=== PATIENT | female | born 1960 | race Caucasian/White ===

== ENCOUNTER 2023-04-24 06:39 | Outpatient (OUT) | payer MEDICARE, SELFPAY ==
[2023-04-25 10:59] LABS: Lithium (Eskalith(R)), Serum 0.4 mmol/L (0.5-1.2)
== END 2023-04-24 06:40 ==
LOC: LAB 06:40
PROVIDERS: PCP Family Medicine
DX: F31.4 Bipolar disorder, current episode depressed, severe, without psychotic features (principal); F41.9 Anxiety disorder, unspecified; Z79.899 Other long term (current) drug therapy
CPT/HCPCS: 36415; 80178

== ENCOUNTER 2023-09-27 09:42 | Outpatient (OUT) | payer MEDICARE, SELFPAY ==
--- NOTE | 2023-09-27 09:49 | XR_ITS ---
The [address] [address] Patient Name: NAZARIO MEDLEY MRN: [id number] date: 1960 Sex: F Assigned Patient Location: [facility] Current Patient Location: [facility] Accession/Order Number: [id number] Exam Date: 09/27/2023 10:03 Report Date: 09/27/2023 11:09 At the request of: NOLA VALENCIA Procedure: XR lumbar spine 2-3V EXAM: XR lumbar spine 2-3V HISTORY: Lumbar Radicular Pain M54.18 COMPARISON: None. TECHNIQUE: 3 views FINDINGS: Satisfactory alignment. Maintained vertebral body heights. Multilevel endplate degenerative changes, disc disease, anterior spurring of L4-S1. No acute fracture. No significant subluxation. Unremarkable soft tissues. XR/XR lumbar spine 2-3V IMPRESSION: Multilevel degenerative changes and disc disease as above. Electronically authenticated by: LAUREN BURTON Date: 09/27/2023 11:09
== END 2023-09-27 09:43 | disposition home or self-care (01) ==
LOC: RAD 09:44
PROVIDERS: PCP Family Medicine; Visit Provider Family Medicine
DX: M54.16 Radiculopathy, lumbar region (principal); M51.36 Other intervertebral disc degeneration, lumbar region
CPT/HCPCS: 72100

== ENCOUNTER 2023-10-04 15:12 | Outpatient (REF) | payer MEDICARE, SELFPAY ==
[2023-10-04 15:42] LABS: Influenza Virus A Antigen Negative; Influenza Virus B Antigen Negative; Internal Control Within Normal Limits
[2023-10-04 15:43] LABS: SARS-CoV-2 Ag POSITIVE (NEGATIVE)
== END 2023-10-04 15:13 | disposition home or self-care (01) ==
LOC: LAB 15:12
PROVIDERS: PCP Family Medicine; Visit Provider Family Medicine
DX: J21.9 Acute bronchiolitis, unspecified (principal)
CPT/HCPCS: 87804; 87811

== ENCOUNTER 2023-10-29 08:04 | Outpatient (RCR) | payer MEDICARE, SELFPAY | END 2023-11-21 07:00 | disposition home or self-care (01) | LOC: PT 08:04 | PROVIDERS: PCP Family Medicine; Visit Provider Family Medicine | DX: M54.16 Radiculopathy, lumbar region (principal) | CPT/HCPCS: 97010; 97035; 97110; 97140; 97161; G0283 ==

== ENCOUNTER 2023-12-15 09:05 | Outpatient (OUT) | payer MEDICARE, SELFPAY ==
--- OUTSIDE RECORDS SUMMARY | 2023-12-15 09:09 | XMS_ITS | CCD ---
Author Name Unknown Address [address] [facility] [place] [address] Organization [facility] Care Team Providers Care Executive Kitchen Manager Name Role Phone Nola Ramirez Primary Care Physician Unavailab Nolan Ron Attending Physician Unavailable NOLA RAMIREZ Referring Unavailable NOLA RAMIREZ Primary Care Unavailable JESSIE ARNETT V Attending Unavailable JESSIE ARNETT V Admitting Unavailable Nola Ramirez Primary Care Physician Florence Pittman Unavailable Unavailable JAMES, DR VACA Primary Care Unavailable BART YOUNG Attending Unavailable BART YOUNG Admitting Unavailable KOKI, DR CONSUELO Ellsworth Consulting Unavailable JAMES, DR VACA Primary Care Unavailable SAMSA, GAGAN Attending Unavailable SAMSAGAGAN Admitting Unavailable SAMSAGAGAN Consulting Unavailable JAMES, DR VACA Primary Care Unavailable KINJAL, ANTONY Attending Unavailable KINJAL, ANTONY Admitting Unavailable WEST, DR CONSUELO Ellsworth Consulting Unavailable JAMES, DR VACA Primary Care Unavailable KINJAL, ANTONY Attending Unavailable KINJAL, ANTONY Admitting Unavailable KINJAL, ANTONY Consulting Unavailable MISC, DR ARREGUIN Consulting Unavailable JAMES, DR VACA Primary Care Unavailable MISC, DR ARREGUIN Attending Unavailable MISC, DR ARREGUIN Admitting Unavailable NILL, DR SCHULER Consulting Unavailable DR NOLA RAMIREZ Primary Care Unavailable NILL, DR SCHULER Attending Unavailable NILL, DR SCHULER Admitting Unavailable DR NOLA RAMIREZ Primary Care Unavailable KINJAL, ANTONY Attending Unavailable KINJAL, ANTONY Admitting Unavailable NILL, DR SCHULER Consulting Unavailable JAMES, DR VACA Primary Care Unavailable NILL, DR SCHULER Attending Unavailable NILL, DR SCHULER Admitting Unavailable RAVINDRATIABIJAN Consulting Unavailable KUCHIPUDI, MARK Consulting Unavailable DR NOLA RAMIREZ Consulting Unavailable JAMES, DR VACA Primary Care Unavailable JAMES, DR VACA Attending Unavailable JAMES, DR VACA Admitting Unavailable Ziebjong, DR Valenzuela Consulting Unavailable YUDITHY, DR VACA Primary Care Unavailable SAMSA, GAGAN Attending Unavailable SAMSA, GAGAN Admitting Unavailable SAMSA, GAGAN Consulting Unavailable MOUKARBEL, DR ROMAN Consulting Unavailable HOY, DR VACA Primary Care Unavailable MOUKARBEL, DR ROMAN Attending Unavailable MOUKARBEL, DR ROMAN Admitting Unavailable WEST, DR CONSUELO Ellsworth Consulting Unavailable JAMES, DR VACA Primary Care Unavailable SAMSA, GAGAN Attending Unavailable SAMSA, GAGAN Admitting Unavailable SAMSA, GAGAN Consulting Unavailable KINJAL, ANTONY Consulting Unavailable JAMES, DR VACA Primary Care Unavailable KINJAL, ANTONY Attending Unavailable KINJAL, ANTONY Admitting Unavailable HORamses, DR VACA Consulting Unavailable JAMES, DR VACA Primary Care Unavailable HOY, DR VACA Attending Unavailable HOY, DR VACA Admitting Unavailable Zieber, DR Valenzuela Consulting Unavailable HOY, DR VACA Consulting Unavailable HOY, DR VACA Primary Care Unavailable HOY, DR VACA Attending Unavailable HOY, DR VACA Admitting Unavailable NILL, Ganga Salgado Attending Unavailable NILL, Ganga Salgado Attending Unavailable NILL, Ganga Salgado Attending Unavailable MOUKARBEL, JESSIE Attending Unavailable MOUKARBEL, JESSIE Attending Unavailable Dereck Walker Attending Unavailab Dereck Maldonado Admitting Unavailab Nola De La Fuente Primary Care Unavailable Allergies Allergy Classification Reported Allergen(s) Allergy Type Date of Onset Reaction(s) Facility (1 source) [address]75,00 Drug allergy (disorder) 1 [facility] Repository (1 source) oxyCODONE; Translations: [OxyCODONE Hydrochloride] Drug Allergy [facility] Repository (1 source) No Known Medication Allergies; Translations: [No Known Medication Allergies] Propensity to adverse reactions (disorder) [facility] Repository Medications Current Medications Medication Drug Class(es) Dates Sig (Normalized) Sig (Original) aspirin 81 mg delayed release oral tablet (2 sources) Platelet Aggregation Inhibitor, Nonsteroidal Anti-inflammatory Drug Start: 08-26-2022 take 1 tablet by mouth once daily aspirin 81 mg Oral EC Tab 81 mg = 1 tab(s), Oral, Daily, Refills(s) 0 Start Date: 08/26/22 Status: Ordered atorvastatin 40 mg oral tablet (2 sources) HMG-CoA Reductase Inhibitor Start: 08-26-2022 atorvastatin 40 mg Tab Refills(s) 0 Start Date: 08/26/22 Status: Ordered buPROPion (8 sources) Aminoketone Start: 08-26-2022 buPROPion 150 mg ER Tab Refills(s) 0 Start Date: 08/26/22 Status: Ordered Start: 06-13-2019 take 300 mg by mouth once aarti y Bupropion Hcl 300 MG Oral Daily 14 June 13, 2019 Active Start: 06-01-2019 End: 06-13-2019 take 150 mg by mouth once daily Bupropion Hcl [Wellbut rin Xl] 150 MG Oral Daily June 01, 2019 June 13, 2019 Discontinued Start: 02-27-2019 End: 03-07-2019 take 1 tablet by mouth once daily Bupropion Hcl [Wellbutrin Sr] 1 TAB Oral Daily February 27, 2019 March 07, 2019 Discontinued busPIRone hydrochloride 15 mg oral tablet (4 sources) Start: 08-26-2022 take 1 tablet by mouth once daily busPIRone 15 mg Tab 15 mg = 1 tab(s), Oral, Daily, Refills(s) 0 Start Date: 08/26/22 Status: Ordered Start: 08-15-2018 End: 06-01-2019 take 20 mg by mouth three times daily Buspirone 20 MG Oral Three times daily 180 August 15, 2018 Discontinued cariprazine 6 mg oral capsule (8 sources) Atypical Antipsychotic Start: 11-29-2020 take 1 capsule by mouth once daily Vraylar 6 mg oral capsule 6 mg = 1 cap(s), Oral, Daily, Other (see comment) Start Date: 11/29/20 Status: Ordered Start: 06-01-2019 take 4.5 mg by mouth once daily Cariprazine 4.5 MG Oral Daily June 01, 2019 Active Start: 03-07-2019 End: 06-01-2019 Cariprazine 1.5 MG Oral As D irected March 07, 2019 Discontinued Start: 08-01-2018 End: 02-27-2019 take 6 mg by mouth once daily Cariprazine [Vraylar] 6 MG Oral Daily August 01, 2018 February 27, 2019 Discontinued lithium carbonate 300 mg ora l capsule (12 sources) Start: 08-26-2022 lithium 300 mg Cap Refills(s) 0 Start Date: 08/26/22 Status: Ordered Start: 06-13-2019 take 300 mg by mouth once aarti y [place] Carbonate 300 MG Oral Daily June 13, 2019 Active Start: 06-13-2019 take 600 mg by mouth at bedtim e [place] Carbonate 600 MG Oral Bedtime June 13, 2019 Active Start: 06-01-2019 End: 06-13-2019 take 300 mg by mouth at bedtime [place] Carbonate 300 MG Oral Bedtime June 01, 2019 June 13, 2019 Discontinued Start: 08-15-2018 End: 06-01-2019 take 150 mg by mouth at bedtime [place] Carbonate 150 MG Oral Bedtime February 27, 2019 June 01, 2019 Discontinued lurasidone hydrochloride 80 mg oral tablet (12 sources) Atypical Antipsychotic Start: 11-29-2020 take 1 tablet by mouth once daily Latuda 80 mg oral tablet 80 mg = 1 tab(s), Oral, Daily, Other (see comment) Start Date: 11/29/20 Status: Ordered Start: 06-13-2019 take 80 mg by mouth once daily Lurasidone [Latuda] 80 MG Oral Daily with supper June 13, 2019 Active Start: 06-01-2019 End: 06-13-2019 take 60 mg by mouth once daily at dinner Lurasidone 60 MG Oral Daily June 01, 2019 Discontinued with dinner Start: 02-27-2019 End: 06-01-2019 take 1 tablet by mouth once daily Lurasidone 1 TAB Oral Daily February 27, 2019 Discontinued Start: 08-02-2018 End: 08-02-2018 take 40 mg by mouth once daily Lurasidone 40 MG Oral D aily with supper August 02, 2018 Discontinued Start: 08-02-2018 End: 08-02-2018 take 40 mg by mouth once daily Lurasidone [Latuda] 40 MG Oral Daily with supper August 02, 2018 August 02, 2018 Discontinued Start: 02-01-2018 End: 08-01-2018 take 60 mg by mouth once daily Lurasidone 60 MG Oral D aily February 01, 2018 Discontinued metoprolol tartrate 25 mg oral tablet (2 sources) beta-Adrenergic José Start: 09-02-2022 take 1 tablet by mouth once daily Metoprolol tartrate 25 mg Tab 25 mg = 1 tab(s), Oral, Daily, Refills(s) 0 Start Date: 09/02/22 Status: Ordered mirtazapine 15 mg oral tablet (6 sources) Start: 08-26-2022 mirtazapine 15 mg Tab Refills(s) 0 Start Date: 08/26/22 Status: Ordered Start: 08-02-2018 End: 08-02-2018 take 15 mg by mouth at bedtime as needed for sleep Mirtazapine 15 MG Oral Bedtime PRN For Sleep August 02, 2018 August 02, 2018 Discontinued Start: 08-02-2018 End: 08-02-2018 take 15 mg by mouth at bedtime as needed for sleep Mirtazapine 15 MG Oral Bedtime PRN For Sleep August 02, 2018 Discontinued Start: 02-01-2018 End: 08-01-2018 take 15 mg by mouth once daily at bedtime Mirtazapine [Remeron] 15 MG Oral Daily at bedtime February 01, 2018 August 01, 2018 Discontinued OLANZapine 5 mg oral tablet (2 sources) Atypical Antipsychotic Start: 08-26-2022 olanzapine 5 mg oral tablet Refills(s) 0 Start Date: 08/26/22 Status: Ordered pantoprazole 40 mg delayed release oral tablet (1 source) Proton Pump Inhibitor Start: 10-21-2022 take 1 tablet by mouth once daily Pantoprazole [address] Tab 40 mg = 1 tab(s), Oral, Daily, Refills(s) 0 Start Date: 10/21/22 Status: Ordered spironolactone 25 mg oral tablet (2 sources) Aldosterone Antagonist Start: 08-26-2022 take 1 tablet by mouth once daily spironolactone 25 mg Tab 25 mg = 1 tab(s), Oral, Daily, Refills(s) 0 Start Date: 08/26/22 Status: Ordered tiZANidine 4 mg oral tablet (8 sources) Central alpha-2 Adrenergic Agonist Start: 11-18-2020 take 2 tablets by mouth at bedtime Zanaflex 4 mg Tab 8 mg = 2 tab(s), Oral, Bedtime, Refills(s) 0, Other (see comment) Start Date: 11/18/20 Status: Ordered Start: 06-13-2019 take 6 mg by mouth at bedtime Tizanidine 6 MG Oral Bedtime 21 June 13, 2019 Active Start: 06-01-2019 End: 06-13-2019 take 8 mg by mouth at bedtime Tizanidine 8 MG Oral Bed time June 01, 2019 Discontinued Start: 02-01-2018 End: 06-01-2019 take 8 mg by mouth at bedtime Tizanidine 8 MG Oral Bed time February 01, 2018 Discontinued Completed/Discontinued Medications Medication Drug Class(es) Dates Sig (Normalized) Sig (Original) carBAMazepine 200 mg oral tablet (2 sources) Mood Stabilizer Start: 02-01-2018 End: 08-01-2018 take 100 mg by mouth three times daily Carbamazepine 100 MG Oral Three times daily February 01, 2018 Discontinued cholecalciferol 1000 unt oral tablet (2 sources) Vitamin D Start: 06-13-2019 take 3000 [IU] by mouth once daily Cholecalciferol (Vitamin D3) 3000 UNIT Oral Daily 42 June 13, 2019 Active clonazePAM 0.5 mg oral tablet (2 sources) Benzodiazepine Start: 08-01-2018 End: 08-15-2018 take 0.5 mg by mouth four times daily Clonazepam 0.5 MG Oral Four times daily August 01, 2018 August 15, 2018 Discontinued 24 hr desvenlafaxine succinate 50 mg extended release oral tablet (4 sources) Serotonin and Norepinephrine Reuptake Inhibitor Start: 08-15-2018 End: 06-01-2019 take 100 mg by mouth once daily Desvenlafaxine Succinate [Pristiq] 100 MG Oral Daily 60 August 15, 2018 June 01, 2019 Discontinued Start: 02-01-2018 End: 08-02-2018 take 100 mg by mouth once daily Desvenlafaxine Succinate 100 MG Oral Daily February 01, 2018 Discontinued esomeprazole 20 mg delayed release oral capsule (4 sources) Proton Pump Inhibitor Start: 02-27-2019 End: 06-01-2019 take 1 tablet by mouth once daily Esomeprazole Magnesium [Nexium] 1 TAB Oral Daily February 27, 2019 June 01, 2019 Discontinued Start: 02-01-2018 End: 08-15-2018 take 40 mg by mouth twice daily Esomeprazole Magnesium 40 MG Oral Twice daily February 01, 2018 Discontinued fenofibrate 145 mg oral tablet (4 sources) Peroxisome Proliferator Receptor alpha Agonist Start: 02-27-2019 End: 06-01-2019 take 1 tablet by mouth once daily Fenofibrate Nanocrystallized [Tricor] 1 TAB Oral Daily February 27, 2019 June 01, 2019 Discontinued Start: 02-01-2018 End: 08-02-2018 take 145 mg by mouth once daily Fenofibrate Nanocrystallized [Tricor] 145 MG Oral Daily February 01, 2018 August 02, 2018 Discontinued hydrOXYzine pamoate 50 mg oral capsule (8 sources) Antihistamine Start: 06-13-2019 take 50 mg by mouth twice daily at mealtime Hydroxyzine Pamoate 50 MG Oral Twice daily with meals June 13, 2019 Active Start: 06-01-2019 End: 06-13-2019 take 50 mg by mouth twice daily as needed for anxiety Hydroxyzine Hcl 50 MG Oral Twice daily PRN For Anxiety June 01, 2019 Discontinued Start: 08-15-2018 End: 06-01-2019 take 1 tablet by mouth twice daily as needed for pain Hydroxyzine Pamoate 1 TAB Oral Twice daily PRN For Pain February 27, 2019 Discontinued ibuprofen 200 mg oral tablet (2 sources) Nonsteroidal Anti-inflammatory Drug Start: 02-01-2018 End: 08-01-2018 take 800 mg by mouth every six hours as needed for pain Ibuprofen [Motrin Ib] 800 MG Oral Q6H PRN For Pain February 01, 2018 August 01, 2018 Discontinued lubiprostone 0.008 mg oral capsule (6 sources) Chloride Channel Activator Start: 02-27-2019 End: 06-01-2019 Lubiprostone [Amitiza] February 27, 2019 June 01, 2019 Discontinued Start: 02-01-2018 End: 02-27-2019 take 24 ug by mouth twice daily Lubiprostone 24 MCG Oral Twice daily February 01, 2018 February 27, 2019 Discontinued naltrexone 380 mg injection (2 sources) Opioid Antagonist Start: 02-01-2018 End: 03-07-2019 Naltrexone Microspheres 380 MG Daily February 01, 2018 Discontinued Last dose given 07/22/18, next dose due 08/19/18. omeprazole 20 mg delayed release oral capsule (2 sources) Proton Pump Inhibitor Start: 08-15-2018 End: 02-27-2019 take 40 mg by mouth once daily Omeprazole 40 MG Oral Daily 60 August 15, 2018 February 27, 2019 Discontinued ondansetron 4 mg oral tablet (2 sources) Serotonin-3 Receptor Antagonist Start: 02-01-2018 End: 02-27-2019 take 4 mg by mouth every six hours as needed for nausea Ondansetron Hcl 4 MG Oral Q6H PRN For Nausea February 01, 2018 February 27, 2019 Discontinued 24 hr oxybutynin chloride 5 mg extended release oral tablet (6 sources) Cholinergic Muscarinic Antagonist Start: 08-15-2018 End: 02-27-2019 take 5 mg by mouth twice daily Oxybutynin Chloride 5 MG Oral Twice daily 60 August 15, 2018 February 27, 2019 Discontinued Start: 02-01-2018 End: 06-01-2019 take 1 tablet by mouth once daily Oxybutynin Chloride [Ditropan Xl] 1 TAB Oral Daily February 27, 2019 June 01, 2019 Discontinued pramipexole dihydrochloride 0.25 mg oral tablet (6 sources) Nonergot Dopamine Agonist Start: 02-01-2018 End: 06-01-2019 take 1 tablet by mouth at bedtime Pramipexole [Mirapex] 1 TAB Oral Bedtime February 27, 2019 June 01, 2019 Discontinued promethazine hydrochloride 25 mg oral tablet (4 sources) Phenothiazine Start: 06-01-2019 take 25 mg by mouth twice daily as needed for nausea Promethazine 25 MG Oral Twice daily PRN For Nausea June 01, 2019 Active Start: 02-01-2018 End: 08-01-2018 take 25 mg by mouth every four hours as needed for nausea Promethazine 25 MG Oral Q4H PRN For Nausea February 01, 2018 August 01, 2018 Discontinued propranolol hydrochloride 40 mg oral tablet (2 sources) beta-Adrenergic José Start: 02-01-2018 End: 08-01-2018 take 20 mg by mouth once daily Propranolol 20 MG Oral Daily February 01, 2018 Discontinued simvastatin 20 mg oral tablet (4 sources) HMG-CoA Reductase Inhibitor Start: 08-02-2018 End: 02-27-2019 take 20 mg by mouth once daily in the evening Simvastatin 20 MG Oral Every evening 30 August 15, 2018 February 27, 2019 Discontinued traZODone hydrochloride 100 mg oral tablet (6 sources) Serotonin Reuptake Inhibitor Start: 08-15-2018 End: 02-27-2019 take 100 mg by mouth once daily at bedtime Trazodone 100 MG Oral Daily at bedtime 30 August 15, 2018 February 27, 2019 Discontinued Start: 08-02-2018 End: 08-02-2018 take 100 mg by mouth at bedtime Trazodone 100 MG Oral Bedtime August 02, 2018 August 02, 2018 Discontinued Start: 08-02-2018 End: 08-02-2018 take 100 mg by mouth at bedtime Trazodone 100 MG Oral Bedtime August 02, 2018 Discontinued Start: 02-01-2018 End: 08-01-2018 take 100 mg by mouth once daily at bedtime Trazodone 100 MG Oral Daily at bedtime February 01, 2018 Discontinued 24 hr divalproex sodium 500 mg extended release oral tablet (4 sources) Mood Stabilizer, Anti-epileptic Agent Start: 08-02-2018 End: 08-02-2018 take 1000 mg by mouth once daily Divalproex 1000 MG Oral Daily August 02, 2018 August 02, 2018 Discontinued Start: 08-02-2018 End: 08-02-2018 take 1000 mg by mouth once daily Divalproex 1000 MG Oral Daily August 02, 2018 Discontinued Start: 02-01-2018 End: 08-01-2018 take 500 mg by mouth twice daily Divalproex [Depakote] 500 MG Oral Twice daily February 01, 2018 August 01, 2018 Discontinued Problems Active Problems Problem Classification Problem Date Documented Da te Episodic/Chronic Abdominal hernia (6 sources) Hernia of abdominal wall; Translations: [Incisional hernia] 11-18-2020 Episodic Anal and rectal conditions (2 sources) Rectal prolapse 11-18-2020 Episodic Attention-deficit, conduct, and disruptive behavior disorders (2 sources) Attention deficit hyperactivity disorder, predominantly inattentive type 03-27-2010 Chronic Chronic obstructive pulmonary disease and bronchiectasis (1 source) Bronchiectasis, uncomplicated; Translations: [BRONCHIECTASIS UNCOMPLICATED] Onset: 2 Chronic Disorders of lipid metabolism (9 sources) Mixed hyperlipidemia; Translations: [Mixed hyperlipidemia] Onset: 2 08-26-2022 Chronic Esophageal disorders (2 sources) Gastroesophageal reflux disease 02-02-2014 Chronic Esophageal disorders (2 sources) Esophagitis; Translations: [Esophagitis, unspecified without bleeding] Onset: 2 Episodic Essential hypertension (3 sources) Hypertensive disorder; Translations: [Essential (primary) hypertension] Onset: 2 08-26-2022 Chronic Gastritis and duodenitis (1 source) Unspecified chronic gastritis without bleeding; Translations: [UNS CHRONIC GASTRITIS W/O BLEEDING] Onset: 2 Chronic Gastroduodenal ulcer (except hemorrhage) (3 sources) Gastric ulcer, unspecified as acute or chronic, without hemorrhage or perforation; Translations: [Chronic gastric ulcer without hemorrhage AND without perforation] Onset: 2 Chronic Genitourinary symptoms and ill-defined conditions (2 sources) Urinary incontinence 11-18-2020 Chronic Mood disorders (7 sources) Depressed bipolar I disorder; Translations: [Bipolar disorder] Onset: 2 02-02-2014 Chronic Other 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 source) 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; Translations: [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] Onset: 2 Episodic Other gastrointestinal disorders (4 sources) Dysphagia; Translations: [Dysphagia, unspecified] Onset: 2 Episodic Other gastrointestinal disorders (2 sources) Oropharyngeal dysphagia 08-26-2022 Episodic Other gastrointestinal disorders (4 sources) Dysphagia, unspecified; Translations: [DYSPHAGIA UNSPECIFIED] Onset: 2 Episodic Other gastrointestinal disorders (4 sources) Dysphagia, oropharyngeal phase; Translations: [DYSPHAGIA OROPHARYNGEAL PHASE] Onset: 2 Episodic Other hereditary and degenerative nervous system conditions (2 sources) Restless legs 11-18-2020 Chronic Other infections; including parasitic (2 sources) H/O: infectious disease 11-29-2020 Episodic Other lower respiratory disease (6 sources) Shortness of breath; Translations: [SHORTNESS OF BREATH] Onset: 2 Episodic Other nutritional; endocrine; and metabolic disorders (2 sources) Body mass index 30+ - obesity 09-02-2022 Chronic Other nutritional; endocrine; and metabolic disorders (2 sources) Obesity 08-26-2022 Chronic Other nutritional; endocrine; and metabolic disorders (1 source) Obesity, unspecified; Translations: [OBESITY UNSPECIFIED] Onset: 2 Chronic Other nutritional; endocrine; and metabolic disorders (1 source) Body mass index (BMI) 35.0-35.9, adult; Translations: [BODY MASS INDEX BMI 35.0-35.9 ADULT] Onset: 2 Chronic Other screening for suspected conditions (not mental disorders or infectious disease) (1 source) Abnormal findings on diagnostic imaging of other specified body structures; Translations: [ABNORML FIND DX IMG OTH BODY STRUC] Onset: 2 Chronic Other screening for suspected conditions (not mental disorders or infectious disease) (10 sources) Imaging of gastrointestinal tract abnormal; Translations: [Abnormal findings on diagnostic imaging of other parts of digestive tract] Onset: 2 Episodic Other upper respiratory infections (1 source) Acute sinusitis, unspecified; Translations: [ACUTE SINUSITIS UNSPECIFIED] Onset: 2 Episodic Residual codes; unclassified (2 sources) Obstructive sleep apnea syndrome 11-18-2020 Chronic Residual codes; unclassified (1 source) Obstructive sleep apnea (adult) (pediatric); Translations: [OBSTRUCTIVE SLEEP APNEA] Onset: 2 Chronic Residual codes; unclassified (2 sources) Amnesia 11-29-2020 Episodic Residual codes; unclassified (1 source) Acquired absence of both cervix and uterus; Translations: [ACQUIRED ABSENCE BOTH CERVIX AND UTERUS] Onset: 2 Episodic Residual codes; unclassified (1 source) Acquired absence of other specified parts of digestive tract; Translations: [ACQ ABSENCE OTH PART DIGESTV TRACT] Onset: 2 Episodic Schizophrenia and other psychotic disorders (1 source) Acute exacerbation of chronic schizophrenia Chronic Screening and history of mental health and substance abuse codes (1 source) Personal history of nicotine dependence; Translations: [PERSONAL HISTORY OF NICOTINE DEPEND] Onset: 2 Episodic Unclassified (1 source) ESOPHAGITIS UNSPEC WITHOUT BLEEDING; Translations: [ESOPHAGITIS UNSPEC WITHOUT BLEEDING] Onset: 2 Unclassified (4 sources) CONTACT W/AND (SUSP) EXPOS COVID-19; Translations: [CONTACT W/AND (SUSP) EXPOS COVID-19] Onset: 2 Past or Other Problems Problem Classification Problem Date Documented Da te Episodic/Chronic Nausea and vomiting (1 source) Nausea Episodic Other lower respiratory disease (7 sources) Other forms of dyspnea; Translations: [OTHER FORMS OF DYSPNEA] Onset: 06-02-2022 Episodic Residual codes; unclassified (1 source) Localized edema; Translations: [LOCALIZED EDEMA] Onset: 07-13-2022 Episodic Suicide and intentional self-inflicted injury (1 source) Suicidal thoughts Episodic Unclassified (1 source) CONTACT W/AND (SUSP) EXPOS COVID-19; Translations: [CONTACT W/AND (SUSP) EXPOS COVID-19] Onset: 08-11-2022 Results Test Name Value Interpretation Reference Range Facility Office Visiton 04-05-2023 Follow-up visit [id number] Julia Medley 1960 F Date Provider Department Center 04/05/2023 JESSIE RIVERA GAL [facility] Family History Problem Relation Age of Onset Hypertension Mother Hypertension Father Family Status - Relation Status Age at Mother Father Level of Service:[id number] [place] OFFICE/OUTPATIENT ESTABLISHED MOD MDM 30-39 MIN Reason for Visit and Comments: Shortness of Breath [022883] Hyperlipidemia [182] Normal [facility] General Surgery Office/Clini c Noteon 10-21-2022 General Surgery Office/Clinic Note Chief Complaint post operative follow up HPI Staff 14 day post operative follow up post EGD with antral and distal esophagus biopsies. Taking Pantoprazole without change in dysphagia. History of Present Illness s/p EGD for dysphagia, abnormal UGI; EGD with distal esophagitis, no Mackenzie's changes; small antral ulcerations; bx negative for H pylori; no real improvement with daily Protonix. Review of Systems ROS - Provider Constitutional: no fever, no sweats, no weight loss. Eyes: no glasses, no blurred vision, no visual loss. ENMT: no dentures, no hoarseness, no swallowing difficulties, no hearing loss, no ear infection(s), no nose bleeds. Cardiovascular: normal blood pressure, no chest pain, regular heartbeat, no heart murmur. Respiratory: no shortness of breath, no cough, no asthma, no wheezing. Gastrointestinal: no nausea, no vomiting, no diarrhea, no constipation, no blood in stool, no change in bowel habits, no abdominal pain, no hepatitis. Genitourinary: no kidney stones, no urine infection, no dysuria. Musculoskeletal: no pain, no weakness. Skin: no changing moles, no rash, no skin lumps. Neurologic: no seizures, no epilepsy, no headache. Psychiatric: no emotional or psychiatric problem. Heme/Lymph: no bleeding problems, no anemia, no blood clots, no transfusions. Allergy/Immunologic: no swollen lymph nodes/glands, no IV drug abuse. Other: Additional ROS info: Except as noted in the above Review of Systems and in the History of Present Illness, all other systems have been reviewed and are negative or noncontributory. Assessment/Plan 1. Chronic gastric ulcer without hemorrhage or perforation (K25.7: Chronic gastric ulcer without hemorrhage or perforation) continue PPI, if no improvement in 1 week, increase to bid; call with problems/questions. 2. Esophagitis on biopsy (K20.90: Esophagitis, unspecified without bleeding) see # 1 3. Dysphagia (R13.10: Dysphagia, unspecified) see # 1 Follow-up No qualifying data available Problem List/Past Medical History Ongoing Abdominal wall hernia Abnormal barium swallow Antral erosion Bladder incontinence BMI 35.0-35.9,adult Dysphagia Dysphagia, oropharyngeal Esophagitis on biopsy HTN (hypertension) Incisional hernia Incisional hernia without obstruction or gangrene Mixed hyperlipidemia Obesity ERIKA (obstructive sleep apnea) Rectal prolapse RLS (restless legs syndrome) Historical Acid reflux ADD - Attention deficit disorder Bipolar disorder History of Clostridium difficile infection Memory loss Procedure/Surgical History EGD - Esophagogastroduodenoscopy (10/07/2022), Cardiac catheterization (07/28/2022), Hernia repair (12/05/2020), Abdominal hysterectomy (1996), Arthroscopy of shoulder, Cholecystectomy, Ectopic , Exploratory laparotomy, History of partial thyroidectomy, History of tonsillectomy, Partial resection of colon. Medications aspirin 81 mg Oral EC Tab, 81 mg= 1 tab(s), Oral, Daily atorvastatin 40 mg Tab buPROPion 150 mg ER Tab busPIRone 15 mg Tab, 15 mg= 1 tab(s), Oral, Daily Latuda 80 mg oral tablet, 80 mg= 1 tab(s), Oral, Daily lithium 300 mg Cap Metoprolol tartrate 25 mg Tab, 25 mg= 1 tab(s), Oral, Daily mirtazapine 15 mg Tab olanzapine 5 mg oral tablet Pantoprazole [address] Tab, 40 mg= 1 tab(s), Oral, Daily spironolactone 25 mg Tab, 25 mg= 1 tab(s), Oral, Daily Vraylar 6 mg oral capsule, 6 mg= 1 cap(s), Oral, Daily Zanaflex 4 mg Tab, 8 mg= 2 tab(s), Oral, Bedtime Allergies No Known Allergies Social History Alcohol - Denies Alcohol Use, 03/27/2010 Substance Abuse - Denies Substance Abuse, 03/27/2010 Tobacco - Denies Tobacco Use, 03/27/2010 Former smoker, quit more than 30 days ago Tobacco Use:. Never Smokeless Tobacco Use:. Cigarettes, 1 per day. Started age 14.0 Years. Stopped age 58 Years., 09/02/2022 Family History COPD: Brother. Diabetes mellitus type 2: Mother. Hypertension: Mother and Father. Normal [facility] Comment on above: Result Comment: Elec tronically Signed By: CAIT LEHMAN, Ganga Valencia\Date and Time Signed: 10/21/22 15:25 EST Operative Reporton 2 Operative Report [id number]:127 Normal [facility] Operative Reporton 2 Operative Report [id number]:127 Normal [facility] Pathology Noteon 10-09-2022 Pathology Note [id number]:127 Normal [facility] Lab Reportson 10-05-2022 Lab Reports [id number]#1.00CD:127 Normal [facility] Covid-19 PCR ([facility])on 09-22 SARS-CoV-2 (COVID-19) RNA ISABEL+probe Ql (Unsp spec) Not detected Normal NOT DETECTED [facility] Comment on above: Result Comment: This test is not yet approved or cleared by the [place] FDA. When there are no FDA-approved or cleared tests available, and other criteria are met, FDA can make tests available under an emergency access mechanism called an Emergency Use Authorization (EUA). The EUA for this test is supported by the [place] [employer] of Health and Human Service's (HHS's) declaration that circumstances exist to justify the emergency use of in vitro diagnostics for the detection and/or diagnosis of the virus that causes COVID-19. This EUA will remain in effect (meaning this test can be used) for the duration of the COVID-19 declaration justifying emergency of IVDs, unless it is terminated or revoked by FDA (after which the test may no longer be used). When diagnostic testing is negative, the possibility of a false negative should be considered in the context of a patient's recent exposures and the presence of clinical signs and symptoms consistent with SARS-CoV-2. Performed By: #### [facility] #### [facility] [address] [place] [address] Dr. Osmar Cox Consent for Procedure/Surger yon 09-03-2022 Consent for Procedure/Surgery [id number]:127 Aida [facility] Ambulatory Visit Summaryon 1 Ambulatory Visit Summary EBONY MEDLEY :1960 Visit Date:09/02/2022 Ambulatory Visit Instructions Your Care Team Attending Physician - CAIT LEHMAN, Ganga Salgado Primary Care Physician - Nola Ramirez MD This Is Your Medications List Contact prescribing physician if questions or concerns aspirin (aspirin 81 mg Oral EC Tab) atorvastatin (atorvastatin 40 mg Tab) buPROPion (buPROPion 150 mg ER Tab) busPIRone (busPIRone 15 mg Tab) cariprazine (Vraylar 6 mg oral capsule) lithium (lithium 300 mg Cap) lurasidone (Latuda 80 mg oral tablet) metoprolol (Metoprolol tartrate 25 mg Tab) mirtazapine (mirtazapine 15 mg Tab) olanzapine (olanzapine 5 mg oral tablet) spironolactone (spironolactone 25 mg Tab) tizanidine (Zanaflex 4 mg Tab) Procedures Performed Cardiac catheterization (07/28/2022), Hernia repair (12/05/2020), Abdominal hysterectomy (1996), Arthroscopy of shoulder, Cholecystectomy, Ectopic , Exploratory laparotomy, History of partial thyroidectomy, History of tonsillectomy, Partial resection of colon. Discharge Vitals Heart Rate (Peripheral) 72 Respiratory Rate 16 Blood Pressure 120/82 Height 160 cm Height 63 in Weight 90 kg Weight 198 lb BMI 35.16 Medications What How Much When Instructions Unchanged aspirin (aspirin 81 mg Oral EC Tab) 1 Tablets By Mouth Every day Contact prescribing physician if questions or concerns Unchanged atorvastatin (atorvastatin 40 mg Tab) Contact prescribing physician if questions or concerns Unchanged buPROPion (buPROPion 150 mg ER Tab) Contact prescribing physician if questions or concerns Unchanged busPIRone (busPIRone 15 mg Tab) 1 Tablets By Mouth Every day Contact prescribing physician if questions or concerns Unchanged cariprazine (Vraylar 6 mg oral capsule) 1 Capsules By Mouth Every day Contact prescribing physician if questions or concerns Unchanged lithium (lithium 300 mg Cap) Contact prescribing physician if questions or concerns Unchanged lurasidone (Latuda 80 mg oral tablet) 1 Tablets By Mouth Every day Contact prescribing physician if questions or concerns Unchanged metoprolol (Metoprolol tartrate 25 mg Tab) 1 Tablets By Mouth Every day Contact prescribing physician if questions or concerns Unchanged mirtazapine (mirtazapine 15 mg Tab) Contact prescribing physician if questions or concerns Unchanged olanzapine (olanzapine 5 mg oral tablet) Contact prescribing physician if questions or concerns Unchanged spironolactone (spironolactone 25 mg Tab) 1 Tablets By Mouth Every day Contact prescribing physician if questions or concerns Unchanged tizanidine (Zanaflex 4 mg Tab) 2 Tablets By Mouth At bedtime Contact prescribing physician if questions or concerns Allergies No Known Allergies Problems Ongoing - Any problem that you are currently receiving treatment for. Abdominal wall hernia Bladder incontinence BMI 35.0-35.9,adult Dysphagia, oropharyngeal HTN (hypertension) Incisional hernia Incisional hernia without obstruction or gangrene Mixed hyperlipidemia Obesity ERIKA (obstructive sleep apnea) Rectal prolapse RLS (restless legs syndrome) Historical - Any problem that you are no longer receiving treatment for. Acid reflux ADD - Attention deficit disorder Bipolar disorder History of Clostridium difficile infection Memory loss Normal [facility] Follow-Upon 08-28-2022 Follow-Up [id number] Julia Medley 1960 F Date Provider Department Center 08/28/2022 JESSIE RIVERA GAL Brown Family History Problem Relation Age of Onset Hypertension Mother Hypertension Father Family Status - Relation Status Age at Mother Father Level of Service:029[address] [place] OFFICE/OUTPATIENT ESTABLISHED LOW MDM 20-29 MIN Normal [facility] Outside Hospital Correspo ndenceon 08-19-2022 Outside Hospital Correspondence [id number]:127 Normal [facility] RAD - CT Reporton 08-19-2022 RAD - CT Report [id number]:127 Normal [facility] RAD - MISCon 08-19-2022 RAD - MISC [id number]:127 [facility] Physician Referralon 022 Physician Referral [id number]#[id number]:127 Normal [facility] 07-24 SARS-CoV-2 (COVID-19) RNA ISABEL+probe Ql (Unsp spec) Not detected Normal NOT DETECTED [facility] Comment on above: Result Comment: This test is not yet approved or cleared by the [place] FDA. When there are no FDA-approved or cleared tests available, and other criteria are met, FDA can make tests available under an emergency access mechanism called an Emergency Use Authorization (EUA). The EUA for this test is supported by the [employer] of Health and Human Service's (HHS's) declaration that circumstances exist to justify the emergency use of in vitro diagnostics for the detection and/or diagnosis of the virus that causes COVID-19. This EUA will remain in effect (meaning this test can be used) for the duration of the COVID-19 declaration justifying emergency of IVDs, unless it is terminated or revoked by FDA (after which the test may no longer be used). When diagnostic testing is negative, the possibility of a false negative should be considered in the context of a patient's recent exposures and the presence of clinical signs and symptoms consistent with SARS-CoV-2. Performed By: #### [facility] #### [facility] [address] [place] [address] Dr. Osmar Cox XR MODIFIED BARIUM SWALLOWon 08-06-2022 XR MODIFIED BARIUM SWALLOW EXAMINATION: XR MODIFIED BARIUM SWALLOW HISTORY: Oropharyngeal dysphagia COMPARISON: No relevant comparison available. TECHNIQUE: A swallowing evaluation was performed with fluoroscopy in the usual manner. Standard level fluoroscopic mode of operation utilized. FINDINGS: ORAL PHASE: Normal deglutition. PHARYNGEAL PHASE: Normal swallowing. ASPIRATION: None. STRUCTURE: Normal. No visible obstruction, stricture, or dilatation. OTHER: Slow passage of contents through the esophagus with accumulation during the study. IMPRESSION: 1. Normal modified barium swallowing study. 2. Of contents within the esophagus suggesting distal stricture or decreased peristalsis. Fluoroscopic esophagram study should be considered for further evaluation. Electronically authenticated by: NICOLAS KIRK Date: 2022-08-06 15:18 Normal [facility] Cardiovascular Lab Reporton 07-29-2022 Cardiovascular Lab Report [facility] Patient Name: Ebony Medley [facility] MR #: [id number] Physician: Jessie De Oliveira of [facility] Medicine Service Date: 07/28/2022 Division of Birthdate: 1960 Cardiology Room #: [facility] Cardiovascular Services [place] [id number] Cardiovascular Laboratory Report INDICATIONS: The patient is a 62-year-old woman who was evaluated in Cardiology Clinic because of symptoms of shortness of breath on exertion and a stress test that showed diffuse ST depressions by Lexiscan infusion. Her myocardial perfusion was within normal limits. She was referred for cardiac catheterization. PROCEDURES: 1. Right heart catheterization. 2. Access into right internal jugular vein under ultrasound guidance. 3. Bilateral selective coronary angiography from the right radial access. 4. Access into the right radial artery under ultrasound guidance. METHODS: Procedure was explained to the patient with risks and benefits, she signed informed consent. 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 The right neck area was prepped and draped in usual fashion. Micropuncture technique and ultrasound guidance were used for access in the right internal jugular vein. A 6-Jamaican x 11 cm sheath was placed. A 6-Jamaican Suarez catheter was used for right heart catheterization and measurement of pressures and calculation of cardiac output using the estimated Karina method. Suarez catheter was removed. Micropuncture technique and ultrasound guidance were used for access in the right radial artery. A 5-Jamaican x 11 cm slender sheath was advanced. Verapamil was given through the sheath and heparin was administered intravenously. Bilateral selective coronary angiography was then performed using 5-Jamaican JL 3.5 and JR5 diagnostic catheters. Catheters were removed. Procedure was concluded. A TR band was used for hemostasis in the right radial artery. Manual compression was used for hemostasis in the right internal jugular vein. She tolerated the procedure well. She will be observed for 2-3 hours and then discharged to home. TOTAL SEDATION TIME: 21 minutes. TOTAL FLUORO TIME: 3.15 minutes. TOTAL AIR KERMA: 225 mGy. TOTAL CONTRAST VOLUME: 20 mL. HEMODYNAMICS: 1. RA 3, RV 34/0, 6. 2. PA, 35/16, mean 23. 3. Pulmonary capillary wedge pressure 6. 4. AO 134/73, mean 98. 5. Cardiac output 6.14, cardiac index 3.26. 6. PA sat 69%. 7. AO sat 93%. CORONARY ANGIOGRAPHY: 1. This is a right dominant circulation. 2. Left main: This arises from left coronary cusp. It trifurcates into left anterior descending, ramus, and circumflex vessels. The left main is angiographically normal. 3. Left anterior descending: This is angiographically normal. 4. Ramus vessel: This is angiographically normal. 5. Circumflex vessel: This is nondominant. It is angiographically normal. 6. Right coronary artery: This arises from the right coronary cusp, it is a large and dominant vessel. It is angiographically normal. SUMMARY OF THE FINDINGS: 1. Normal coronary angiogram. 2. Normal filling pressures. 3. Mild pulmonary hypertension. 4. Preserved cardiac output and cardiac index. RECOMMENDATIONS: 1. Medical therapy and risk factor control. 2. Follow up in Cardiology Clinic. Electronically Signed by: Jessie Arnett M.D. 07/31/2022 06:38 A Jessie Arnett M.D. Date Dict: 07/28/2022/11:21 A/Jessie Arnett M.D. Date Trans: 07/29/2022 03:31 A/gladys [id number] cc: Nola Ramirez M.D. [address] [facility] [id number] Normal [facility] Telephoneon 07-28-2022 Telephone [id number] Julia Medley 1960 F Date Provider Department Center 07/28/2022 [facility] Family History Problem Relation Age of Onset Hypertension Mother Hypertension Father Family Status - Relation Status Age at Mother Father Normal [facility] CBC AUTO DIFFon 07-24-2022 BASO # 0.1 103/ul Normal 0.0-0.1 [facility] Comment on above: Performed By: #### C BC #### [facility] [address] [place] [address] Dr. Osmar Cox Basophils/100 WBC (Bld) 0.9 % Normal 0.2-2.0 [facility] Comment on above: Performed By: #### C BC #### [facility] [address] [place] [address] Dr. Osmar Cox EO # 0.0 103/ul Normal 0.0-0.7 [facility] Comment on above: Performed By: #### C BC #### [facility] [address] [place] [address] Dr. Osmar Cox Eosinophils/100 WBC (Bld) 0.1 % Critically low 0.9-7.0 [facility] Comment on above: Performed By: #### C BC #### [facility] [address] [place] [address] Dr. Osmar Cox Erythrocyte distribution width (RBC) [Ratio] 15.4 % Critically high 11.0-15.0 [facility] Comment on above: Performed By: #### C BC #### [facility] [address] [place] [address] Dr. Osmar Cox Hematocrit (Bld) [Volume fraction] 40.7 % Normal 36.0-48.0 [facility] Comment on above: Performed By: #### C BC #### [facility] [address] [place] [address] Dr. Osmar Cox Hemoglobin (Bld) [Mass/Vol] 12.5 g/dL Normal 12.0-16.0 [facility] Comment on above: Performed By: #### C BC #### [facility] [address] [place] [address] Dr. Osmar Cox IG # 0.08 10e3/ul Critically high 0.00-0.03 [facility] Comment on above: Performed By: #### C BC #### [facility] [address] [place] [address] Dr. Osmar Cox IG % 0.7 % Critically high 0.0-0.5 [facility] Comment on above: Performed By: #### C BC #### [facility] [address] [place] [address] Dr. Osmar Cox LYMPH # 2.6 103/ul Normal 1.2-3.8 [facility] Comment on above: Performed By: #### C BC #### [facility] [address] [place] [address] Dr. Osmar Cox Lymphocytes/100 WBC (Bld) 22.8 % Normal 20.5-60.0 [facility] Comment on above: Performed By: #### C BC #### [facility] [address] [place] [address] Dr. Osmar Cox MANUAL DIFF REQ NO Normal [facility] Comment on above: Performed By: #### C BC #### [facility] [address] [place] [address] Dr. Osmar Cox MCH (RBC) [Entitic mass] 24.4 pg Critically low 26.7-34.0 [facility] Comment on above: Performed By: #### C BC #### [facility] [address] [place] [address] Dr. Osmar Cox MCHC (RBC) [Mass/Vol] 30.7 g/dL Normal 29.9-35.2 [facility] Comment on above: Performed By: #### C BC #### [facility] [address] [place] [address] Dr. Osmar Cox MCV (RBC) [Entitic vol] 79.3 fL Critically low 81.0-99.0 [facility] Comment on above: Performed By: #### C BC #### [facility] [address] [place] [address] Dr. Osmar Cox MONO # 1.0 103/ul Critically high 0.3-0.8 [facility] Comment on above: Performed By: #### C BC #### [facility] [address] [place] [address] Dr. Osmar Cox Monocytes/100 WBC (Bld) 8.9 % Normal 1.7-12.0 [facility] Comment on above: Performed By: #### C BC #### [facility] [address] [place] [address] Dr. Osmar Cox NEUT # 7.6 103/ul Critically high 1.4-6.5 [facility] Comment on above: Performed By: #### C BC #### [facility] [address] [place] [address] Dr. Osmar Cox Neutrophils/100 WBC (Bld) 66.6 % Normal 43.0-75.0 [facility] Comment on above: Performed By: #### C BC #### [facility] [address] [place] [address] Dr. Osmar Cox Platelet mean volume (Bld) [Entitic vol] 8.8 fL Critically low 9.5-13.5 [facility] Comment on above: Performed By: #### C BC #### [facility] [address] [place] [address] Dr. Osmar Cox PLT 438 103/ul Normal 150-450 [facility] Comment on above: Performed By: #### C BC #### [facility] [address] [place] [address] Dr. Osmar Cox RBC 5.13 106/ul Normal 4.20-5.40 [facility] Comment on above: Performed By: #### C BC #### [facility] [address] [place] [address] Dr. Osmar Cox WBC 11.3 103/ul Critically high 4.0-11.0 [facility] Comment on above: Performed By: #### C BC #### [facility] [address] [place] [address] Dr. Osmar Cox Covid-19 PCR ([facility])on SARS-CoV-2 (COVID-19) RNA ISABEL+probe Ql (Unsp spec) Not detected Normal NOT DETECTED [facility] Comment on above: Result Comment: This test is not yet approved or cleared by the [place] FDA. When there are no FDA-approved or cleared tests available, and other criteria are met, FDA can make tests available under an emergency access mechanism called an Emergency Use Authorization (EUA). The EUA for this test is supported by the [place] of Health and Human Service's (HHS's) declaration that circumstances exist to justify the emergency use of in vitro diagnostics for the detection and/or diagnosis of the virus that causes COVID-19. This EUA will remain in effect (meaning this test can be used) for the duration of the COVID-19 declaration justifying emergency of IVDs, unless it is terminated or revoked by FDA (after which the test may no longer be used). When diagnostic testing is negative, the possibility of a false negative should be considered in the context of a patient's recent exposures and the presence of clinical signs and symptoms consistent with SARS-CoV-2. Performed By: #### [facility] #### [facility] [address] [place] [address] CHEST HI RESOLUTIONon CT CHEST HI RESOLUTION EXAMINATION: CT CHEST HI RESOLUTION HISTORY: Dyspnea COMPARISON: No relevant comparison available. TECHNIQUE: Axial images were obtained at 10 mm intervals during inspiration and expiration in the supine and prone positions. No IV contrast given. Dose reduction techniques were achieved by using automated exposure control and/or adjustment of mA and/or kV according to patient size and/or use of iterative reconstruction technique. FINDINGS: LUNGS: Mild bronchiectasis and peribronchial thickening. Minimal patchy opacities abnormality within the right middle lobe and lingula on supine imaging, atelectasis and/or scar is favored. No peripheral subpleural honeycombing with intralobular septal thickening. PLEURA: No mass, effusion, or pneumothorax. GAUDENCIO: No mass or adenopathy. MEDIASTINUM: No mass or adenopathy. CHEST WALL: No mass or axillary adenopathy LIMITED ABDOMEN: No suspicious findings. Limited images of the upper abdomen. OTHER: Negative. IMPRESSION: No evidence of significant interstitial lung disease Mild bronchiectasis and peribronchial thickening Electronically authenticated by: CONSUELO TELLES Date: 2022-07-20 11:51 Normal [facility] BNPon 07-10-2022 Natriuretic peptide B (Bld) [Mass/Vol] 85.0 pg/mL Normal <=900.0 [facility] Comment on above: Performed By: #### B TRANSITION MANAGER, BMP, LIVER, LIPID ####[facility] [id number] [place] [id number]. Osmar Cox LIPID PROFILEon 07-10-2022 CHOL-HDL RATIO NORM SEE BELOW Normal [facility] Comment on above: Result Comment: 3.3 - 4.4 LOW RISK 4.4 - 7.1 AVERAGE RISK 7.1 - 11.0 MODERATE RISK >11.0 HIGH RISK Performed By: #### B TRANSITION MANAGER, BMP, LIVER, LIPID ####[facility] [id number] [place] [id number]. Osmar Cox Cholesterol [Mass/Vol] 229 mg/dL Critically high <=200 [facility] Comment on above: Performed By: #### B TRANSITION MANAGER, BMP, LIVER, LIPID ####[facility] [id number] [place] [id number]. Osmar Cox Cholesterol in HDL [Mass/Vol] 51 mg/dL Normal 40-60 [facility] Comment on above: Performed By: #### B TRANSITION MANAGER, BMP, LIVER, LIPID ####[facility] [id number] [place] [address]Dr. Osmar Cox Cholesterol in LDL [Mass/Vol] 130.2 mg/dL Normal [facility] Comment on above: Performed By: #### B TRANSITION MANAGER, BMP, LIVER, LIPID ####[facility] [id number] [place] [id number]. Osmar Cox Cholesterol.total/ Cholesterol in HDL [Mass ratio] 4.5 {ratio} Normal [facility] Comment on above: Performed By: #### B TRANSITION MANAGER, BMP, LIVER, LIPID ####[facility] [id number] [place] [id number]. Osmar Cox HDL NORMAL > or = 60 mg/dl - LO W CARDIOVASCULAR RISK <40 mg/dl - HIGH CARDIOVASCULAR RISK Normal [facility] Comment on above: Performed By: #### B TRANSITION MANAGER, BMP, LIVER, LIPID ####[facility] [facility] [address] [place] [id number]. Osmar Cox LDL CALC NORMAL SEE BELOW Normal [facility] Comment on above: Result Comment: <100 mg/dl OPTIMAL 100 - 129 mg/dl NEAR OR ABOVE OPTIMAL 130 - 159 mg/dl BORDERLINE HIGH 160 - 189 mg/dl HIGH >190 mg/dl VERY HIGH Performed By: #### B TRANSITION MANAGER, BMP, LIVER, LIPID ####[facility] [address] [place] [address]Dr. Osmar Cox Triglyceride [Mass/Vol] 239 mg/dL Critically high <=150 [facility] Comment on above: Performed By: #### B TRANSITION MANAGER, BMP, LIVER, LIPID ####[facility] [address] [place] [address]Dr. Osmar Cox VLDL CALC 47.8 mg/dL Normal [facility] Comment on above: Performed By: #### B TRANSITION MANAGER, BMP, LIVER, LIPID ####[facility] [address] [place] [address]Dr. Lindakenyon Kenny LIVER PROFILEon 07-10-2022 Albumin [Mass/Vol] 3.5 g/dL Normal 3.4-5.0 [facility] Comment on above: Performed By: #### B TRANSITION MANAGER, BMP, LIVER, LIPID ####[facility] [address] [place] [address]Dr. Osmar Cox Albumin/Globulin [Mass ratio] 1.0 {ratio} Normal [facility] Comment on above: Performed By: #### B TRANSITION MANAGER, BMP, LIVER, LIPID ####[facility] [address] [place] [address]Dr. Osmar Cox ALP [Catalytic activity/Vol] 183 U/L Critically high 46-116 [facility] Comment on above: Performed By: #### B TRANSITION MANAGER, BMP, LIVER, LIPID ####[facility] [address] [place] [address]Dr. Osmar Cox ALT [Catalytic activity/Vol] 32 U/L Normal 14-59 [facility] Comment on above: Performed By: #### B TRANSITION MANAGER, BMP, LIVER, LIPID ####[facility] [address] [place] [address]Dr. Osmar Cox AST [Catalytic activity/Vol] 17 U/L Normal 15-37 [facility] Comment on above: Performed By: #### B TRANSITION MANAGER, BMP, LIVER, LIPID ####[facility] [address] [place] [address]Dr. Osmar Cox BILI, CONJUGATED 0.1 mg/dL Normal 0.0-0.2 [facility] Comment on above: Performed By: #### B TRANSITION MANAGER, BMP, LIVER, LIPID ####[facility] [address] [place] [address]DrKate Cox Bilirubin [Mass/Vol] 0.2 mg/dL Normal 0.2-1.0 [facility] Comment on above: Performed By: #### B TRANSITION MANAGER, BMP, LIVER, LIPID ####[facility] [address] [place] [address]DrKate Cox Globulin (S) [Mass/Vol] 3.5 g/dL Normal [facility] Comment on above: Performed By: #### B TRANSITION MANAGER, BMP, LIVER, LIPID ####[facility] [address] [place] [address]Dr. Osmar Cox Protein [Mass/Vol] 7.0 g/dL Normal 6.4-8.2 [facility] [place] Comment on above: Performed By: #### B TRANSITION MANAGER, BMP, LIVER, LIPID ####[facility] [address] [place] [address]Dr. Osmar Cox PROF CHEM 8 (BAS METB)on Anion gap [Moles/Vol] 11.6 mmol/L Normal [facility] Comment on above: Performed By: #### B TRANSITION MANAGER, BMP, LIVER, LIPID #### [facility] [address] [address] [address] Osmar Cox Calcium [Mass/Vol] 8.9 mg/dL Normal 8.5-10.1 [facility] [place] Comment on above: Performed By: #### B TRANSITION MANAGER, BMP, LIVER, LIPID #### [facility] [address] [address] [address] Osmar Cox Chloride [Moles/Vol] 104 mmol/L Normal 98-107 [facility] Comment on above: Performed By: #### B TRANSITION MANAGER, BMP, LIVER, LIPID #### [facility] [address] [address] [address] Osmar Cox CO2 [Moles/Vol] 26.0 mmol/L Normal 21.0-32.0 [facility] Comment on above: Performed By: #### B TRANSITION MANAGER, BMP, LIVER, LIPID #### [facility] [address] [address] [address] Osmar Cox Creatinine [Mass/Vol] 0.80 mg/dL Normal 0.55-1.02 [facility] Comment on above: Performed By: #### B TRANSITION MANAGER, BMP, LIVER, LIPID #### [facility] [address] [address] [address] Osmar Cox EGFR-AF BULGARIAN >60 Normal >=60 [facility] Comment on above: Performed By: #### B TRANSITION MANAGER, BMP, LIVER, LIPID #### [facility] [address] [address] [address] Osmar Cox EGFR-NON AF BULGARIAN >60 Normal >=60 [facility] Comment on above: Performed By: #### B TRANSITION MANAGER, BMP, LIVER, LIPID #### [facility] [address] [address] [address] Osmar Cox Glucose [Mass/Vol] 100 mg/dL Normal 74-106 [facility] Comment on above: Performed By: #### B TRANSITION MANAGER, BMP, LIVER, LIPID #### [facility] [address] [address] [address] Osmar Cox Potassium [Moles/Vol] 4.6 mmol/L Normal 3.5-5.1 [facility] Comment on above: Performed By: #### B TRANSITION MANAGER, BMP, LIVER, LIPID #### [facility] [address] [address] [address] Osmar Cox Sodium [Moles/Vol] 137 mmol/L Normal 136-145 [facility] [place] Comment on above: Performed By: #### B TRANSITION MANAGER, BMP, LIVER, LIPID #### [facility] [address] [address] [address] Osmar Cox Urea nitrogen [Mass/Vol] 20.0 mg/dL Critically high 7.0-18.0 [facility] Comment on above: Performed By: #### B TRANSITION MANAGER, BMP, LIVER, LIPID #### [facility] [address] [address] [address] Osmar Cox Urea nitrogen/Creatinin e [Mass ratio] 25.0 mg/mg Normal [facility] Comment on above: Performed By: #### B TRANSITION MANAGER, BMP, LIVER, LIPID #### [facility] [address] [address] [address] Osmar Cox XR CHEST 2 Von 06-04-2022 XR CHEST 2 V EXAMINATION: XR CHES T 2 V HISTORY: Dyspnea COMPARISON: 06/02/2022 TECHNIQUE: PA and lateral FINDINGS: LUNGS: Stable ill-defined bilateral heart border suggests atelectasis. No new focal infiltrates VASCULATURE: No increased pulmonary vasculature. PLEURA: No pneumothorax, effusion, or pleural thickening. CARDIAC: No cardiomegaly or cardiac silhouette abnormality. MEDIASTINUM: No visible mass or adenopathy. BONES: No fracture or visible bone lesion. OTHER: Negative. IMPRESSION: Stable exam, no focal infiltrates Electronically authenticated by: CONSUELO TELLES Date: 2022-06-04 19:26 Normal [facility] HEMOGLOBINon 06-02-2022 Hemoglobin (Bld) [Mass/Vol] 12.1 g/dL Normal 12.0-16.0 [facility] Comment on above: Performed By: #### H GB #### [facility] [address] [place] [address] Dr. Osmar Cox XR CHEST 2 Von 06-02-2022 XR CHEST 2 V EXAMINATION: XR CHES T 2 V HISTORY: Dyspnea COMPARISON: 10/09/2020 TECHNIQUE: PA and lateral FINDINGS: LUNGS: Mild right middle lobe and lingular opacities. VASCULATURE: No increased pulmonary vasculature. PLEURA: No pneumothorax, effusion, or pleural thickening. CARDIAC: No cardiomegaly or cardiac silhouette abnormality. MEDIASTINUM: No visible mass or adenopathy. BONES: No fracture or visible bone lesion. OTHER: Negative. IMPRESSION: Mild bibasilar atelectasis Electronically authenticated by: CONSUELO TELLES Date: 2022-06-02 19:19 Normal [facility] NM STRESS/REST MULTIon 05-06 NM STRESS/REST MULTI Patient: EBONY MEDLEY Exam Date: 05/06/2022 : 1960 Gender:F Ordering : DR NOLA RAMIREZ . Admission #: [id number] Family : Order #: [id number] CLICK HERE TO VIEW EXAM RADIOLOGY REPORT PROCEDURE: RADIONUCLIDE IMAGING STRESS/REST MULTI COMPARISON: None. INDICATIONS: Dyspnea TECHNIQUE: Exam Description: Stress/Rest one day protocol gated SPECT Rest Imagin.9 mCi Tc-99m Cardiolite IV on 05/06/2022 Stress Imaging 30.0 mCi Tc-99m Cardiolite IV on 05/06/2022 Exercise Protocol: 0.4 mg Lexiscan given IV Heart Rate (bpm): Rest: 79 Max: 133 PMHR: 85 Blood Pressure: Rest: 146/102 Max: 184/102 Exercise Time: Minutes: 5 Seconds: 29 Stage Reached: Stage: 2 Mets 5.10 Symptoms: shortness of breath Rest and peak stress ECG findings were abnormal and the exercise portion of the study was abnormal per attending physician Dr. Loyd due to EKG changes. For more details please see separate cardiac stress test report. FINDINGS: QUALITY OF STUDY: Excellent. PERFUSION DEFECT: None. LOCATION: N/A SIZE: N/A. SEVERITY: N/A. TYPE: N/A. WALL MOTION: Normal. LV SIZE: Normal. 54 mL. TID / TCD: None; 0.8 LVEF: Normal. Calculated EF 79%. SUMMARY: Myocardial perfusion imaging study is NORMAL. CONCLUSION: 1. Normal nuclear medicine myocardial perfusion scan. Dictated by: Nicolas Kirk M.D. on 05/07/2022 at 11:02 Approved by: Nicolas Kirk M.D. on 05/07/2022 at 11:04 Normal [facility] ECHOCARDIO M/2D COMPLETEon 0 04-29-2022 ECHOCARDIO M/2D COMPLETE Patient: EBONY MEDLEY. Exam Date: 04/29/2022 : 1960 Gender:F Ordering : DR NOLA RAMIREZ . Admission #: [id number] Family : Order #: [id number] CLICK HERE TO VIEW EXAM ECHOCARDIOGRAM REPORT PROCEDURE: CARDIO PULMONARY ECHOCARDIO M/2D COMP INDICATIONS: Dyspnea COMPARISON: None. DESCRIPTION: COMPLETE ECHOCARDIOGRAM Real-time transthoracic echocardiography with 2D, M-mode, spectral and color flow Doppler performed. QUALITY: Technical quality was limited because of lung artifact. 63 169# 142/96 HR 92 Suggest imaging agent to enhance LV visualization if clinically indicated. LEFT VENTRICLE: Normal chamber size. Proximal septal hypertrophy (sigmoid septum). Global left ventricular systolic function is hyperdynamic. LV EF: Left ventricular ejection fraction is 70%. DIASTOLIC: Normal diastolic function. ATRIAL SEPTUM: LEFT ATRIUM: Normal chamber size. RIGHT ATRIUM: Normal chamber size. RIGHT VENTRICLE: Normal chamber size. Normal right ventricular systolic function. TRICUSPID VALVE: Normal mobility and thickness. No stenosis with trivial regurgitation. No evidence of pulmonary hypertension. RVSP 32 mmHg MITRAL VALVE: Normal mobility and thickness. No evidence of mitral valve stenosis. Trivial mitral regurgitation. AORTIC VALVE: Normal trileaflet appearance. No evidence of aortic valve stenosis. No aortic regurgitation. AORTIC ROOT: Normal diameter and appearance. Normal ascending aorta. PULMONIC VALVE: Normal thickness and mobility. No stenosis. Trivial regurgitation. PERICARDIUM: No pericardial effusion. IVC: Collapses with inspirations. IVC is normal in size. PLEURA: CONCLUSION: 1. Left ventricular systolic function is hyperdynamic. LVEF is 70%. 2. Normal right ventricular systolic function. 3. Normal diastolic function. 4. No significant valvular dysfunction. 5. Normal right-sided pressures. 6. No pericardial effusion. Adult Echocardiography Procedure Report Left Ventricle Left Atrium Mitral Valve Right Ventricle Aorta Aortic Valve Peak Velocity (Antegrade Flow): 1.48 m/s AoV Area (Peak Amandeep): 3.02 cm2, 3.02 cm2 Peak Velocity(Antegrade Flow): 1.48 m/s Peak Gradient(Antegrade Flow): 8.79 mm[Hg] Tricuspid Valve Peak Velocity (Regurgitant Flow): 2.68 m/s Peak Velocity: 0.59 m/s Pulmonic Valve PV Max Amandeep (0.6 - 0.9 m per sec): 1.01 m/s PV Max Gradient: 4.10 mm[Hg] Right Atrium Dictated by: Jessie Arnett M.D. on 04/30/2022 at 20:06 Approved by: Jessie Arnett M.D. on 04/30/2022 at 20:[address] [facility] 03-20-2022 [place] (Eskalith(R)), Serum 0.6 mmol/L Normal 0.5-1.2 [facility] Comment on above: Result Comment: Plas ma concentration of 0.5 - 0.8 mmol/L are advised for long-term use; concentrations of up to 1.2 mmol/L may be necessary during acute treatment. Detection Limit = 0.1 <0.1 indicates None Detected Performed By: #### L ITHIUM ####[facility] [address] [place] [id number]. Lindakenyon Cox LIPID PROFILEon 03-19-2022 CHOL-HDL RATIO NORM SEE BELOW Normal [facility] Comment on above: Result Comment: 3.3 - 4.4 LOW RISK 4.4 - 7.1 AVERAGE RISK 7.1 - 11.0 MODERATE RISK >11.0 HIGH RISK Performed By: #### T SH, T4, LIPID, CMP ####[facility] [address] [place] [address]Dr. Osmar Cox Cholesterol [Mass/Vol] 269 mg/dL Critically high <=200 [facility] Comment on above: Performed By: #### T SH, T4, LIPID, CMP ####[facility] [address] [place] [phone]. Osmar Cox Cholesterol in HDL [Mass/Vol] 48 mg/dL Normal 40-60 [facility] Comment on above: Performed By: #### T SH, T4, LIPID, CMP ####[facility] [address] [place] [phone]. Osmar Cox Cholesterol in LDL [Mass/Vol] 145.8 mg/dL Normal [facility] Comment on above: Performed By: #### T SH, T4, LIPID, CMP ####[facility] [address] [place] [phone]. Osmar Cox Cholesterol.total/ Cholesterol in HDL [Mass ratio] 5.6 {ratio} Normal [facility] Comment on above: Performed By: #### T SH, T4, LIPID, CMP ####[facility] [address] [place] [phone]. Osmar Cox HDL NORMAL > or = 60 mg/dl - LO W CARDIOVASCULAR RISK <40 mg/dl - HIGH CARDIOVASCULAR RISK Normal [facility] Comment on above: Performed By: #### T SH, T4, LIPID, CMP ####[facility] [address] [place] [address]Dr. Osmar Cox LDL CALC NORMAL SEE BELOW Normal [facility] Comment on above: Result Comment: <100 mg/dl OPTIMAL 100 - 129 mg/dl NEAR OR ABOVE OPTIMAL 130 - 159 mg/dl BORDERLINE HIGH 160 - 189 mg/dl HIGH >190 mg/dl VERY HIGH Performed By: #### T SH, T4, LIPID, CMP ####[facility] [address] [place] [id number]. Osmar Cox Triglyceride [Mass/Vol] 376 mg/dL Critically high <=150 [facility] Comment on above: Performed By: #### T SH, T4, LIPID, CMP ####[facility] [address] [place] [address]Dr. Osmar Cox VLDL CALC 75.2 mg/dL Normal [facility] Comment on above: Performed By: #### T SH, T4, LIPID, CMP ####[facility] [address] [place] [address]DrKate Cox PROF 14(COMP METB)on 022 Albumin [Mass/Vol] 3.4 g/dL Normal 3.4-5.0 [facility] Comment on above: Performed By: #### T SH, T4, LIPID, CMP ####[facility] [address] [place] [phone] Cox Albumin/Globulin [Mass ratio] 1.0 {ratio} Normal [facility] Comment on above: Performed By: #### T SH, T4, LIPID, CMP ####[facility] [address] [place] [address]Dr. Osmar Cox ALP [Catalytic activity/Vol] 118 U/L Critically high 46-116 [facility] Comment on above: Performed By: #### T SH, T4, LIPID, CMP ####[facility] [address] [place] [address]Dr. Osmar Cox ALT [Catalytic activity/Vol] 17 U/L Normal 14-59 [facility] Comment on above: Performed By: #### T SH, T4, LIPID, CMP ####[facility] [address] [place] [address]Dr. Osmar Cox Anion gap [Moles/Vol] 11.3 mmol/L Normal [facility] Comment on above: Performed By: #### T SH, T4, LIPID, CMP ####[facility] [address] [place] [address]Dr. Osmar Cox AST [Catalytic activity/Vol] 11 U/L Critically low 15-37 [facility] Comment on above: Performed By: #### T SH, T4, LIPID, CMP ####[facility] [address] [place], [place] [address]Dr. Osmar Cox Bilirubin [Mass/Vol] 0.2 mg/dL Normal 0.2-1.0 [facility] Comment on above: Performed By: #### T SH, T4, LIPID, CMP ####[facility] [address] [place], [place] [address]Dr. Osmar Cox Calcium [Mass/Vol] 8.7 mg/dL Normal 8.5-10.1 [facility] Comment on above: Performed By: #### T SH, T4, LIPID, CMP ####[facility] [address] [place] [address]Dr. Osmar Cox Chloride [Moles/Vol] 106 mmol/L Normal 98-107 [facility] Comment on above: Performed By: #### T SH, T4, LIPID, CMP ####[facility] [address] [place], [place] [address]Dr. Osmar Cox CO2 [Moles/Vol] 23.6 mmol/L Normal 21.0-32.0 [facility] Comment on above: Performed By: #### T SH, T4, LIPID, CMP ####[facility] [address] [place] [address]Dr. Osmar Cox Creatinine [Mass/Vol] 0.86 mg/dL Normal 0.55-1.02 [facility] Comment on above: Performed By: #### T SH, T4, LIPID, CMP ####[facility] [address] [place] [address]Dr. Osmar Cox EGFR-AF BULGARIAN >=60 Normal >=60 [facility] Comment on above: Performed By: #### T SH, T4, LIPID, CMP ####[facility] [address] [place] [address]Dr. Osmar Cox EGFR-NON AF BULGARIAN >=60 Normal >=60 [facility] Comment on above: Performed By: #### T SH, T4, LIPID, CMP ####[facility] [address]ktolp[address] [place] [address]Dr. Osmar Cox Globulin (S) [Mass/Vol] 3.3 g/dL Normal [facility] Comment on above: Performed By: #### T SH, T4, LIPID, CMP ####[facility] [address] [place], [place] [address]Dr. Osmar Cox Glucose [Mass/Vol] 104 mg/dL Normal 74-106 [facility] [place] Comment on above: Performed By: #### T SH, T4, LIPID, CMP ####[facility] [address] [place], [place] [address]Dr. Osmar Cox Potassium [Moles/Vol] 4.9 mmol/L Normal 3.5-5.1 [facility] Comment on above: Performed By: #### T SH, T4, LIPID, CMP ####[facility] [address] [place], [place] [address]Dr. Osmar Cox Protein [Mass/Vol] 6.7 g/dL Normal 6.1-8.2 [facility] [place] Comment on above: Performed By: #### T SH, T4, LIPID, CMP ####[facility] [address] [place], [place] [address]Dr. Osmar Cox Sodium [Moles/Vol] 136 mmol/L Normal 136-145 [facility] Comment on above: Performed By: #### T SH, T4, LIPID, CMP ####[facility] [address] [place], [place] [address]Dr. Osmar Cox Urea nitrogen [Mass/Vol] 25.0 mg/dL Critically high 7.0-18.0 [facility] Comment on above: Performed By: #### T SH, T4, LIPID, CMP ####[facility] [address] [place] [phone]. Osmar Cox Urea nitrogen/Creatinin e [Mass ratio] 29.1 mg/mg Normal [facility] Comment on above: Performed By: #### T SH, T4, LIPID, CMP ####[facility] [address] [place] [phone]. Osmar Cox T4on 03-19-2022 T4 [Mass/Vol] 7.60 ug/dL Normal 4.80-13.90 [facility] Comment on above: Performed By: #### T SH, T4, LIPID, CMP ####[facility] [address] [place] [phone]. Osmar Cox TSHon 03-19-2022 TSH 1.427 uIU/mL Normal 0.470-4.680 [facility] Comment on above: Performed By: #### T SH, T4, LIPID, CMP ####[facility] [address] [place] [address]Dr. Osmar Cox TSH RANGE SEE BELOW Normal [facility] Comment on above: Result Comment: <0.3 4 UIU/ml HYPERTHYROID 0.34-5.60 UIU/ml EUTHYROID >5.60 UIU/ml HYPOTHYROID Performed By: #### T SH, T4, LIPID, CMP ####[facility] [address] [place] [phone]. Osmar Cox Laboratory Studieson 018 Albumin [Mass/Vol] 3.8 g/dL 3.2-5.5 [facility] Albumin/Globulin [Mass ratio] 1.5 {ratio} [facility] ALP [Catalytic activity/Vol] 75 U/L 32-92 [facility] ALT No additional P-5'-P [Catalytic activity/Vol] 16 U/L 10-60 [facility] AST [Catalytic activity/Vol] 18 U/L 10-42 [facility] Basophils (Bld) [#/Vol] 0.1 10*3/uL 0.0-0.2 [facility] Basophils/100 WBC (Bld) 1.0 % [facility] Bilirubin [Mass/Vol] 0.5 mg/dL 0.3-1.2 [facility] Calcium [Mass/Vol] 9.2 mg/dL 8.2-10.2 [facility] Carbamazepine [Mass/Vol] < 2.0 ug/mL Low 4.0-12.0 [facility] Chloride [Moles/Vol] 103 mmol/L 95-114 [facility] CK [Catalytic activity/Vol] 46 U/L 22-269 [facility] CK.MB [Mass/Vol] 1.0 ng/mL 0.6-6.3 [facility] CK.MB Calc [Catalytic fraction] 2.1 0.00-2.50 [facility] CO2 [Moles/Vol] 24.9 mmol/L 22.0-30.0 [facility] Creatinine [Mass/Vol] 0.58 mg/dL 0.44-1.03 [facility] Eosinophils (Bld) [#/Vol] 0.2 10*3/uL 0.0-0.45 [facility] Eosinophils/100 WBC (Bld) 3.1 % [facility] Erythrocyte distribution width (RBC) [Ratio] 13.5 % 11.9-15.3 [facility] Ethanol [Mass/Vol] mg/dL [facility] Ethanol [Mass/Vol] TNP [facility] Comment on above: Test not performed GFR/1.73 sq M predicted among blacks MDRD (S/P/Bld) [Vol rate/Area] mL/min/{1.73_m2} [facility] Comment on above: GFR estimated refere nce range: According to KDOQI guidelines, <60 ml/min/1.73m2 is sufficient to diagnose a patient with chronic kidney disease. GFR/1.73 sq M predicted among non-blacks MDRD (S/P/Bld) [Vol rate/Area] mL/min/{1.73_m2} [facility] Globulin (S) [Mass/Vol] 2.6 g/dL [facility] Glucose [Mass/Vol] 96 mg/dL 70-100 [facility] Comment on above: ADA recommended refe rence range Random Glucose Reference Range is dependent on time and content of last meal. Glucose of more than 200 mg/dL in a nonstressed, ambulatory subject supports the diagnosis of Diabetes Mellitus. Hematocrit (Bld) [Volume fraction] 38.7 % 34.0-46.4 [facility] Hemoglobin (Bld) [Mass/Vol] 12.8 g/dL 11.8-15.4 [facility] Lymphocytes (Bld) [#/Vol] 2.1 10*3/uL 1.00-4.8 [facility] Lymphocytes/100 WBC (Bld) 33.0 % [facility] MCH (RBC) [Entitic mass] 28.3 pg 24.7-34.3 [facility] MCHC (RBC) [Mass/Vol] 33.1 g/dL 32.0-35.0 [facility] MCV (RBC) [Entitic vol] 85.4 fL 80-100 [facility] Monocytes (Bld) [#/Vol] 0.5 10*3/uL 0.0-0.8 [facility] Monocytes/100 WBC (Bld) 7.2 % [facility] Neutrophils (Bld) [#/Vol] 3.5 10*3/uL 1.8-7.7 [facility] Neutrophils/100 WBC (Bld) 55.7 % [facility] Creatinine Clearance (Chem 87.4588 [facility] Platelet mean volume (Bld) [Entitic vol] 6.9 fL 6.3-10.7 [facility] Platelets (Bld) [#/Vol] 270 10*3/uL 150-450 [facility] Potassium [Moles/Vol] 4.3 mmol/L 3.5-5.1 [facility] Protein [Mass/Vol] 6.4 g/dL 6.1-7.9 [facility] RBC (Bld) [#/Vol] 4.52 10*6/uL 3.60-5.00 [facility] Sodium [Moles/Vol] 136 mmol/L 136-146 [facility] Troponin I.cardiac [Mass/Vol] ng/mL 0-0.02 [facility] Comment on above: [place] Cut off value > or equal to 0.03 ng/mL in conjunction with clinical conditions of myocardial infarction. (www.escardio.org/guidelines) Urea nitrogen [Mass/Vol] 18 mg/dL 9-23 [facility] Valproate [Mass/Vol] 52.6 ug/mL 50.0-100.0 [facility] Comment on above: Last dose: - WBC (Bld) [#/Vol] 6.3 10*3/uL 3.8-11.6 [facility] Amphetamines Ql (U) Negative [facility] Barbiturates Ql (U) Negative [facility] Benzodiazepines Ql (U) Negative [facility] Bilirubin Ql (U) Negative [facility] Cannabinoids Screen Ql (U) Negative [facility] Comment on above: These are unconfirme d results and should not be used for legal purposes. Drug Cut-Off Concentration: AMPH 1000 ng/mL ALFREDO 200 ng/mL JAXON 200 ng/mL COCM 300 ng/mL OP 300 ng/mL PCP 25 ng/mL THC 20 ng/mL Clarity Refractometry automated (U) Clear [facility] Cocaine Ql (U) Negative [facility] Color (U) Yellow [facility] Glucose Auto test strip (U) [Mass/Vol] Normal mg/dL [facility] Hemoglobin Auto test strip Ql (U) Negative [facility] Ketones (U) [Mass/Vol] Negative [facility] Leukocyte esterase Auto test strip Ql (U) Negative [facility] Nitrite Ql (U) Negative [facility] Opiates Ql (U) Negative [facility] pH (U) 6.5 [pH] 5.0-9.0 [facility] Phencyclidine Ql (U) Negative [facility] Protein (U) [Mass/Vol] Negative [facility] Specific gravity (U) [Rel density] 1.018 1.001-1.030 [facility] Urobilinogen (U) [Mass/Vol] Normal mg/dL [facility] Vital Signs Date Time Vital Sign Value Performing Clinician Facility 09-02-2022 13:44-0400 Blood Pressure Location Ganga CAIT [facility] [place] 09-02-2022 13:44-0400 Diastolic blood pressure 82 mm[Hg] Ganga CAIT [facility] [place] 09-02-2022 13:44-0400 Heart rate 72 /min Ganga CAIT [facility] 09-02-2022 13:44-0400 Respiratory rate 16 /min Ganga PEARCE [facility] 09-02-2022 13:44-0400 Systolic blood pressure 120 mm[Hg] Ganga CAIT [facility] 03-07-2019 15:00-0400 Body Temperature 97.8 [degF] [facility] 03-07-2019 15:00-0400 BP Diastolic 88 mm[Hg] [facility] 03-07-2019 15:00-0400 BP Systolic 158 mm[Hg] [facility] 03-07-2019 15:00-0400 Pulse (Heart Rate) 78 /min [facility] 03-07-2019 15:00-0400 Pulse Oximetry 95 % [facility] 03-07-2019 15:00-0400 Respiratory Rate 16 /min [facility] Body weight [facility] NEGATED: Highlighted row BMI (Body Mass Index) [facility] NEGATED: Highlighted row Height [facility] Encounters Encounter Date Encounter Type Care Provider Facility Start: 09-20-2023 ambulatory Dereck De La Rosa acility:[facility] Start: 04-05-2023 End: 04-05-2023 ambulatory [facility] Start: 10-21-2022 End: 10-22-2022 ambulatory Ganga PEARCE Facility:[facility] Start: 10-21-2022 End: 10-21-2022 Patient encounter procedure Ganga PEARCE General Surgery [facility] Start: 10-08-2022 Encounter for preprocedural laboratory examination DR GANGA PEARCE [facility] Start: 10-07-2022 End: 10-08-[address] GANGA PEARCE Facility:[facility] Start: 10-03-2022 End: 10-04-[address] GANGA PEARCE Facility:[facility] Start: 10-03-2022 End: 10-04-2022 Encounter for preprocedural laboratory examination DR GANGA PEARCE Facility:[facility] Start: 09-02-2022 End: 09-03-2022 ambulatory [facility] Start: 09-02-2022 End: 09-02-2022 Patient encounter procedure Ganga PEARCE General Surgery [facility] Start: 08-28-2022 End: 08-28-2022 ambulatory JESSIE ARNETT [facility] Start: 08-11-2022 End: 08-11-[address] NOLA RAMIREZ Facility:[facility] Start: 08-06-2022 End: 08-07-[address] Nicolas Kirk Facility:[facility] Start: 07-28-2022 End: 07-29-2022 ambulatory NOLA RAMIREZ Facility:[facility] Start: 07-24-2022 End: 07-25-[address] JESSIE ARNETT Facility:[facility] Start: 07-20-2022 End: 07-21-[address] CONSUELO TELLES Facility:[facility] Start: 07-10-2022 End: 07-11-2022 ambulatory ANTONY LAYTON Facility:[facility] Start: 06-04-2022 End: 06-05-[address] CONSUELO TELLES Facility:[facility] Start: 06-02-2022 End: 06-03-[address] CONSUELO TELLES Facility:[facility] Start: 05-11-[address] NOLA RAMIREZ Facility :[facility] Start: 05-06-2022 End: 05-07-[address] NOLA RAMIREZ Facility:[facility] Start: 04-30-2022 End: 05-01-[address] NOLA RAMIREZ Facility:[facility] Start: 04-13-[address] NOLA RAMIREZ Facility :[facility] Start: 03-19-2022 End: 03-20-[address] DOCTOR OQUENDO Facility:[facility] Start: 03-15-2019 End: 03-15-2019 Patient encounter procedure Nola ramses [facility] Start: 03-07-2019 End: 03-07-2019 Admission to day surgery Nola Horamses [facility] Start: 02-01-2018 End: 02-01-2018 Emergency department patient visit Nola ramses [facility] Start: 06-07-2014 End: 06-12-2014 Evaluation and management of inpatient [facility] Start: 06-17-2011 End: 06-20-2011 Evaluation and management of inpatient [facility] Start: 05-01-2011 End: 05-18-2011 Evaluation and management of inpatient [facility] Start: 05-27-2010 End: 06-26-2010 Discharged Recurring [facility] Start: 05-22-2010 End: 06-21-2010 Discharged Recurring [facility] Start: 04-22-2010 End: 05-21-2010 Discharged Recurring [facility] Start: 03-22-2010 End: 04-21-2010 Discharged Recurring [facility] Start: 02-20-2010 End: 03-21-2010 Discharged Recurring [facility] Start: 01-20-2010 End: 02-19-2010 Discharged Recurring Nola ramses [facility] Start: 01-20-2010 End: 02-19-2010 Discharged Recurring Nola ramses [facility] Start: 01-16-2010 End: 01-19-2010 Discharged Recurring Nola ramses [facility] Start: 12-23-2009 End: 01-19-2010 Discharged Recurring Nola ramses [facility] Start: 11-23-2009 End: 12-22-2009 Discharged Recurring Nola ramses [facility] Start: 11-22-2009 End: 01-20-2010 Discharged Recurring Nola ramses [facility] Start: 10-22-2009 End: 11-21-2009 Discharged Recurring Nola [facility] Start: 10-15-2009 End: 11-22-2009 Discharged Recurring Nola ramses [facility] Start: 09-22-2009 End: 10-21-2009 Discharged Recurring Nola [facility] Start: 08-22-2009 End: 09-21-2009 Discharged Recurring Nola [facility] Start: 08-06-2009 End: 08-21-2009 Discharged Recurring Nola [facility] Start: 07-02-2009 End: 07-22-2009 Discharged Recurring Nola [facility] Start: 06-04-2009 End: 06-21-2009 Discharged Recurring Nola [facility] Start: 04-22-2009 End: 05-21-2009 Discharged Recurring Nola [facility] Start: 03-22-2009 End: 04-21-2009 Discharged Recurring Nola James [facility] Start: 02-20-2009 End: 03-21-2009 Discharged Recurring Nola James [facility] Start: 02-10-2009 End: 02-10-2009 Emergency department patient visit Nola Hoy [facility] Start: 01-21-2009 End: 02-19-2009 Discharged Recurring Nola ramses [facility] Start: 12-24-2008 End: 01-19-2009 Discharged Recurring Nola James [facility] Start: 11-23-2008 End: 12-22-2008 Discharged Recurring Nola ramses [facility] Start: 10-22-2008 End: 11-21-2008 Discharged Recurring Nola Hoy [facility] Start: 09-22-2008 End: 10-21-2008 Discharged Recurring Nola ramses [facility] Start: 08-22-2008 End: 09-21-2008 Discharged Recurring Nola ramses [facility] Start: 07-24-2008 End: 08-21-2008 Discharged Recurring Nola ramses [facility] Start: 07-02-2008 End: 07-05-2008 Evaluation and management of inpatient Nola ramses [facility] Start: 06-22-2008 End: 07-22-2008 Discharged Recurring Nola ramses [facility] Start: 06-05-2008 End: 06-14-2008 Evaluation and management of inpatient Nola [facility] Start: 05-29-2008 End: 06-21-2008 Discharged Recurring Nola [facility] Start: 04-24-2008 End: 05-21-2008 Discharged Recurring Nola Hoy [facility] Start: 03-22-2008 End: 04-21-2008 Discharged Recurring Nola Hoy [facility] Start: 02-21-2008 End: 03-21-2008 Discharged Recurring Nola Hoy [facility] Start: 02-14-2008 End: 02-20-2008 Discharged Recurring Nola Hoy [facility] Start: 12-23-2007 End: 01-20-2008 Discharged Recurring Nola Hoy [facility] Start: 12-20-2007 End: 12-23-2007 Evaluation and management of inpatient Nola Hoy [facility] Start: 11-22-2007 End: 12-22-2007 Discharged Recurring Nola Hoy [facility] Start: 10-22-2007 End: 11-21-2007 Discharged Recurring Nola Hoy [facility] Start: 09-22-2007 End: 10-21-2007 Discharged Recurring Nola Hoy [facility] Start: 08-22-2007 End: 09-21-2007 Discharged Recurring Nola Hoy [facility] Start: 07-23-2007 End: 08-21-2007 Discharged Recurring Nola Hoy [facility] Start: 06-22-2007 End: 07-22-2007 Discharged Recurring Nola James [facility] Start: 05-22-2007 End: 06-21-2007 Discharged Recurring Nola ramses [facility] Start: 04-28-2007 End: 04-28-2007 Emergency department patient visit Nola ramses [facility] Start: 04-28-2007 End: 04-28-2007 Patient encounter procedure Nola Hoy [facility] Start: 04-28-2007 End: 05-21-2007 Discharged Recurring Nola [facility] Start: 03-01-2002 End: 03-21-2002 Discharged Recurring Nola [facility] Start: 03-01-2002 End: 03-04-2002 Evaluation and management of inpatient Nola [facility] Start: 03-24-2001 End: 03-24-2001 Discharged Recurring Nola [facility] Start: 03-24-2001 End: 04-04-2001 Evaluation and management of inpatient Nola [facility] Start: 09-27-1996 End: 09-30-1996 Evaluation and management of inpatient Nola [facility] Start: 08-19-1995 End: 08-19-1995 Emergency department patient visit Nola [facility] Start: 09-27-1993 End: 09-27-1993 Patient encounter procedure Nola [facility] Procedures Date Procedure Procedure Detail Performing Clinician Start: 10-07-2022 Esophagogastroduodenoscopy Ganga PEARCE Start: 07-28-2022 Cardiac catheterization Ganga PEARCE Start: 12-05-2020 Hernia repair Ganga PEARCE Start: 03-07-2019 Arthroscopy of shoulder A Olexa Nolan Start: 11-22-1996 Abdominal hysterectomy Ganga PEARCE Arthroscopy of shoulder Palmer ael NILL Cholecystectomy Ganga NILL Ectopic (disorder) Ganga NILL Exploratory laparotomy Yrn ferreira NILL History of subtotal thyroidectomy Ganga NILL History of tonsillectomy Chuy roberson NILL Partial resection of colon Cali garcia NILL Payers Date Payer Category Payer Self-pay 1960 Medicaid [id number] 1960 Medicare [id number] Self-pay [id number] 1960 Unknown [id number] 2.16.8 [id number] 1959 Unknown [id number] 2.16.84 0.1.666716.3.579.2.593 1959 Unknown [id number] 2.16.84 0.1.370133.3.579.2.593 1959 Unknown [id number] 2.16.84 0.1.577765.3.579.2.593 1959 Unknown [id number] 2.16.84 0.1.557400.3.579.2.593 1959 Unknown [id number] 2.16.84 0.1.555552.3.579.2.593 1959 Unknown [id number] 2.16.84 0.1.732395.3.579.2.593 1959 Unknown [id number] 2.16.84 0.1.271664.3.579.2.593 1959 Unknown [id number] 2.16.84 0.1.026443.3.579.2.59 1959 Unknown [id number] 2.16.84 0.1.249165.3.579.2.593 1959 Unknown [id number] 2.16.84 0.1.387036.3.579.2.593 1959 Unknown [id number] 2.16.84 0.1.640482.3.579.2.593 1959 Unknown [id number] 2.16.84 0.1.516169.3.579.2.593 1959 Unknown [id number] 2.16.84 0.1.416154.3.579.2.593 1959 Unknown [id number] 2.16.84 0.1.949628.3.579.2.593 1959 Unknown [id number] 2.16.84 0.1.104127.3.579.2.593 1959 Unknown [id number] 2.16.8 40.1.277560.3.579.2.727 1959 Unknown [id number] 2.16.8 40.1.259780.3.579.2.727 1959 Unknown [id number] 2.16.8 40.1.935067.3.579.2.727 Medicare [id number] Unknown [id number] 2.16.8 40.1.240403.3.579.2.531 Social History Date Type Detail Facility Start: 09-02-2022 Tobacco smoking status Ex-smoker (fi nding) [facility] Tobacco smoking status Never [facility] Sex Assigned At Female Genera l [facility] [place] Medical Equipment Procedure Code Equipment Code Equipment Origin al Text Equipment Identifier Dates HERNIA REPAIR, R OBOT ASSISTED Ganga PEARCE MD 12/05/20 Non Biological Abdomen {[id number] FDA Start: 12-05-2020 Functional Status Date Assessment Result Facility 09-02-2022 Functional Status N/A General Joe shadia [facility] Progress note 04-05-2023 Note Date & Type Note Facility 04-05-2023 Note [place] [facility] Subjective Ebony Medley is a 63 y.o. year old female patient being seen for 6 mo follow up hyperlipidemia and LEES. Denies chest pain and worsening LEES. Patient's says it's worsening but patient denies this. No recent testing since last visit. Patient Active Problem List Diagnosis Dyspnea on exertion Mixed hyperlipidemia Family History Problem Relation Name Age of Onset Hypertension Mother Hypertension Father Social History Tobacco Use Smoking status: Former Types: Cigarettes Smokeless tobacco: Never Substance Use Topics Alcohol use: Not Currently HPI Ebony is seen in follow-up. She is a 63-year-old woman who was evaluated on 05/08/2022 in cardiology clinic because of shortness of breath on exertion and abnormal stress test. Visit of 07/13/2022: It appears that her shortness of breath has been going on over several months but has progressed significantly recently. She denies chest pain. She has no palpitations. No leg edema. She has a prior history of fungal lung infection about 9 years ago for which she was admitted for a prolonged time and at one point was comatose. She is a former smoker, quit in 2018. Additional medical history includes GE reflux disease, bipolar disorder and obstructive sleep apnea but cannot tolerate the CPAP. She has hyperlipidemia. In the past was on statin therapy but that was stopped. Her recent lipid levels were elevated. She was started on atorvastatin 40 mg daily. Has lower extremity edema and spironolactone was added recently. She was seen by pulmonary and started on an inhaler but it has not helped at all. She has shortness of breath on mild exertion. She says that she gets significantly short of breath just moving from 1 room to the other. She has no chest pain and no lower extremity edema. No palpitations. Blood testing 07/10/2022: Potassium 4.6, BUN 20, creatinine 0.8, EGFR more than 60, ALP 183 [46-1 16], cholesterol 229, HDL 41, triglycerides 239, LDL 130. NT proBNP 85. labs 03/19/22: renal function normal BUN 25 CR 0.86, LFT- slightly elevated ALP 118, AST 11, ALT 17 chol 269, HDL 48, Trig 376 LDL 145.8 12/12/20 CHol 295, HDL 45, Trig 485, LDL 172 Echocardiogram: 04/29/22 Normal LVSF- hyperdynamic EF 70% normal RV size and systolic fx, normal rt sided pressure no significant valvular abnormalities Stress test 05/06/2022: This was a Lexiscan stress test with myocardial perfusion imaging. Normal nuclear medicine myocardial perfusion scan. Subtle ST segment depression in inferolateral leads. 0.[address] segment depression in leads V4 through V6 as well as 2 and 3. She developed dyspnea following infusion of Lexiscan. Chest x-ray 06/04/2022: Stable exam no focal infiltrates. PFTs 06/02/2022: Normal spirometry and lung volumes with isolated diffusion impairment. This pattern can be seen but not restricted to cardiopulmonary vascular disorder, early interstitial lung disease and early emphysema. Update 08/28/2022: After last visit I proceeded with cardiac catheterization and this showed normal coronary angiogram with normal filling pressures and mild pulm hypertension. She reports that she continues to have symptoms of shortness of breath. No leg edema. No chest pain. Overall doing relatively well Update 04/05/2023: She is seen in follow up. Today she reports that she has been doing about the same. She continues to have shortness of breath on exertion. She thinks that this is related to her obesity. Otherwise she denies chest pain, leg edema, and palpitations. She is taking medications as prescribed. Review of Systems Cardiovascular: Positive for dyspnea on exertion. Musculoskeletal: Positive for back pain. All other systems reviewed and are negative. Objective Visit Vitals BP 126/71 (BP Location: Right arm, Patient Position: Sitting) Pulse 94 Ht 1.6 m (5' 3 ) Wt 91.6 kg (202 lb) SpO2 96% BMI 35.78 kg/m??? Smoking Status Former BSA 2.02 m??? Physical Exam Constitutional: Appearance: She is well-developed. She is obese. She is not ill-appearing. HENT: Head: Normocephalic and atraumatic. Nose: Nose normal. Eyes: General: No scleral icterus. Pupils: Pupils are equal, round, and reactive to light. Neck: Thyroid: No thyromegaly. Vascular: No JVD. Cardiovascular: Rate and Rhythm: Normal rate and regular rhythm. Pulses: Radial pulses are 2+ on the right side and 2+ on the left side. Heart sounds: Normal heart sounds. No murmur heard. No friction rub. No gallop. Pulmonary: Effort: Pulmonary effort is normal. No respiratory distress. Breath sounds: Normal breath sounds. No wheezing or rales. Chest: Chest wall: No tenderness. Abdominal: General: Bowel sounds are normal. There is no distension. Palpations: Abdomen is soft. Tenderness: There is no abdominal tenderness. Musculoskeletal: General: No swelling. Cervical back (more content not included)... [facility] Clinical Note 10-07-2022 Note Date & Type Note Facility 10-07-2022 Note OPERATIVE NOTE OPERATION DATE: 10/07/2022 PREOPERATIVE DIAGNOSIS: Dysphagia and abnormal upper GI. POSTOPERATIVE DIAGNOSIS: Antral ulceration as well as distal esophagitis. PROCEDURE: EGD with antral biopsies and biopsy of the distal esophagus. SURGEON: Ganga Pearce M.D. ANESTHESIA: Monitored anesthesia care. ESTIMATED BLOOD LOSS: Less than 1 mL. INDICATIONS AND CONSENT: Patient is a 62-year-old female with history of intermittent dysphagia for solid food. Workup revealed, on a barium swallow, some delay in passage of food into the stomach with possible spasm versus stricture at the distal esophagus. Indications, risks, benefits, alternatives of proceeding with EGD were explained extensively to the patient, including the risks of bleeding, aspiration, esophageal/gastric/duodenal perforation or anesthetic complications. All of her questions were answered. Informed consent was obtained. PROCEDURE: Patient brought to the operating room, placed in the left lateral decubitus position. Monitored anesthesia care was provided. Bite block was placed in the patient's mouth. Scope was inserted into the oropharynx and under direct visualization was advanced into the esophagus, past the cricopharyngeus, down to the stomach. The stomach was insufflated with air. The pylorus was traversed down to the descending portion of the duodenum. There was no evidence of duodenitis or ulceration. There was no scarring within the pyloric channel. The scope was pulled back into the stomach. There was noted to be some superficial antral ulcerations without bleeding or old blood. Several biopsies of the antrum were obtained with pediatric cold biopsy forceps. The scope was retroflexed. There was no significant hiatal hernia. No other gastric mucosal abnormalities. There was noted to be some distal esophagitis without Mackenzie's changes. Several biopsies were obtained with good hemostasis. The remainder of the esophagus was unremarkable. There were no strictures noted. The scope was then withdrawn. Patient tolerated procedure well, was sent to recovery room in good condition. CC: Nola Ramirez M.D. [facility] Clinical Note 09-02-2022 Note Date & Type Note Facility 09-02-2022 Note Chief Complaint consultation for abnormal barium swallow HPI Staff 62 year old female presents on consultation from Dr. Loyd for EGD due to abnormal barium swallow. Patient reports dysphagia, primarily with solid foods for several months. History of Present Illness 62 yo female with h/o htn, hyperlipidemia, bipolar s/o, ERIKA, referred from Dr Loyd for dysphagia and abnormal ba swallow; patient reports intermittent dysphagia for solid foods for several months; occasional regurgitates food, no GERD symptoms, no early satiety, no problems with liquids; did have one episode with milk that she gulped down quickly; no PPI therapy; recent ba swallow with delayed emptying into stomach, question stricture or spasm; no previous EGD, on baby asa, no NSAID use, no bowel changes; abdominal operations significant for open cholecystectomy, partial colon resection, exploratory laparotomy; incisional hernia repair; no tobacco use, quit 4 years ago. Review of Systems PHQ Score Initial Depression Screen Score: 0 ROS - Provider Constitutional: no fever, no sweats, no weight loss. Eyes: no glasses, no blurred vision, no visual loss. ENMT: no dentures, no hoarseness, yes swallowing difficulties, no hearing loss, no ear infection(s), no nose bleeds. Cardiovascular: normal blood pressure, no chest pain, regular heartbeat, no heart murmur. Respiratory: no shortness of breath, no cough, no asthma, no wheezing. Gastrointestinal: no nausea, no vomiting, no diarrhea, no constipation, no blood in stool, no change in bowel habits, no abdominal pain, no hepatitis. Genitourinary: no kidney stones, no urine infection, no dysuria. Musculoskeletal: no pain, no weakness. Skin: no changing moles, no rash, no skin lumps. Neurologic: no seizures, no epilepsy, no headache. Psychiatric: no emotional or psychiatric problem. Heme/Lymph: no bleeding problems, no anemia, no blood clots, no transfusions. Allergy/Immunologic: no swollen lymph nodes/glands, no IV drug abuse. Other: Additional ROS info: Except as noted in the above Review of Systems and in the History of Present Illness, all other systems have been reviewed and are negative or noncontributory. Physical Exam Vitals & Measurements HR: 72(Peripheral) RR: 16 BP: 120/82 HT: 63 in HT: 160 cm WT: 90 kg WT: 198 lb BMI: 35.16 HEENT: normal conjunctiva, sclera clear, no scleral icterus, EOM intact, PERRLA, oral mucosa moist without lesions. Neck: trachea midline, no mass, symmetric, no thyromegaly or nodules, no adenopathy Respiratory: lungs CTA, respirations non labored. Cardiovascular: regular rate and rhythm, no murmur, no pedal edema or varicosities. Gastrointestinal:obese, soft, non distended, no tenderness, no masses, no palpable hernias, diastasis recti no, no hepatosplenomegaly; normal bs Lymphatic: no cervical adenopathy, Musculoskeletal: normal gait, digits and nails without infection, nodes, cyanosis, clubbing. Skin: no rashes, no lesions, no ulcers, no subcutaneous nodules, induration. Psychiatric/Neuro: oriented to time, place, person, judgement normal, affect appropriate for age, insight intact, no focal deficits. Tests: , x-rays reviewed, review of old records completed, Discussed surgical options, risks, and possible complications with patient. Assessment/Plan 1. Abnormal barium swallow (R93.3: Abnormal findings on diagnostic imaging of other parts of digestive tract) plan EGD under anesthesia, informed consent obtained 2. Dysphagia (R13.10: Dysphagia, unspecified) see # 1 Follow-up No qualifying data available Problem List/Past Medical History Ongoing Abdominal wall hernia Abnormal barium swallow Bladder incontinence BMI 35.0-35.9,adult Dysphagia Dysphagia, oropharyngeal HTN (hypertension) Incisional hernia Incisional hernia without obstruction or gangrene Mixed hyperlipidemia Obesity ERIKA (obstructive sleep apnea) Rectal prolapse RLS (restless legs syndrome) Historical Acid reflux ADD - Attention deficit disorder Bipolar disorder History of Clostridium difficile infection Memory loss Procedure/Surgical History Cardiac catheterization (07/28/2022), Hernia repair (12/05/2020), Abdominal hysterectomy (1996), Arthroscopy of shoulder, Cholecystectomy, Ectopic , Exploratory laparotomy, History of partial thyroidectomy, History of tonsillectomy, Partial resection of colon. Medications aspirin 81 mg Oral EC Tab, 81 mg= 1 tab(s), Oral, Daily atorvastatin 40 mg Tab buPROPion 150 mg ER Tab busPIRone 15 mg Tab, 15 mg= 1 tab(s), Oral, Daily Latuda 80 mg oral tablet, 80 mg= 1 tab(s), Oral, Daily lithium 300 mg Cap Metoprolol tartrate 25 mg Tab, 25 mg= 1 tab(s), Oral, Daily mirtazapine 15 mg Tab olanzapine 5 mg oral tablet spironolactone 25 mg Tab, 25 mg= 1 tab(s), Oral, Daily Vraylar 6 mg oral capsule, 6 mg= 1 cap(s), Oral, Daily Zanaflex 4 mg Tab, 8 mg= 2 tab(s), Oral, Bedtime Allergies No Known Allergies Social Hi (more content not included)... [facility] Comment on above: Result Comment: Elec tronically Signed By: CAIT LEHMAN, Ganga Valencia\Date and Time Signed: 09/02/22 15:31 EDT Progress note 08-28-2022 Note Date & Type Note Facility 08-28-2022 Note Subjective Ebony Medley is a 62 y.o. year old female patient being seen for follow up heart cath. CASSANDRA Beck is seen in follow-up. She is a 62-year-old woman who was evaluated on 05/08/2022 in cardiology clinic because of shortness of breath on exertion and abnormal stress test. Visit of 07/13/2022: It appears that her shortness of breath has been going on over several months but has progressed significantly recently. She denies chest pain. She has no palpitations. No leg edema. She has a prior history of fungal lung infection about 9 years ago for which she was admitted for a prolonged time and at one point was comatose. She is a former smoker, quit in 2018. Additional medical history includes GE reflux disease, bipolar disorder and obstructive sleep apnea but cannot tolerate the CPAP. She has hyperlipidemia. In the past was on statin therapy but that was stopped. Her recent lipid levels were elevated. She was started on atorvastatin 40 mg daily. Has lower extremity edema and spironolactone was added recently. She was seen by pulmonary and started on an inhaler but it has not helped at all. She has shortness of breath on mild exertion. She says that she gets significantly short of breath just moving from 1 room to the other. She has no chest pain and no lower extremity edema. No palpitations. Blood testing 07/10/2022: Potassium 4.6, BUN 20, creatinine 0.8, EGFR more than 60, ALP 183 [46-1 16], cholesterol 229, HDL 41, triglycerides 239, LDL 130. NT proBNP 85. labs 03/19/22: renal function normal BUN 25 CR 0.86, LFT- slightly elevated ALP 118, AST 11, ALT 17 chol 269, HDL 48, Trig 376 LDL 145.8 12/12/20 CHol 295, HDL 45, Trig 485, LDL 172 Echocardiogram: 04/29/22 Normal LVSF- hyperdynamic EF 70% normal RV size and systolic fx, normal rt sided pressure no significant valvular abnormalities Stress test 05/06/2022: This was a Lexiscan stress test with myocardial perfusion imaging. Normal nuclear medicine myocardial perfusion scan. Subtle ST segment depression in inferolateral leads. 0.[address] segment depression in leads V4 through V6 as well as 2 and 3. She developed dyspnea following infusion of Lexiscan. Chest x-ray 06/04/2022: Stable exam no focal infiltrates. PFTs 06/02/2022: Normal spirometry and lung volumes with isolated diffusion impairment. This pattern can be seen but not restricted to cardiopulmonary vascular disorder, early interstitial lung disease and early emphysema. Update 08/28/2022: After last visit I proceeded with clinic catheterization and this showed normal coronary angiogram with normal filling pressures and mild pulm hypertension. She reports that she continues to have symptoms of shortness of breath. No leg edema. No chest pain. Overall doing relatively well Review of Systems Cardiovascular: Positive for dyspnea on exertion and leg swelling. Respiratory: Positive for shortness of breath. Musculoskeletal: Positive for back pain. Neurological: Positive for light-headedness. All other systems reviewed and are negative. Objective Visit Vitals BP 108/72 (BP Location: Left arm, Patient Position: Sitting) Pulse 56 Ht 1.6 m (5' 3 ) Wt 89.4 kg (197 lb) SpO2 98% BMI 34.90 kg/m??? Smoking Status Former BSA 1.99 m??? Physical Exam Constitutional: Appearance: She is well-developed. She is not ill-appearing. HENT: Head: Normocephalic and atraumatic. Nose: Nose normal. Eyes: General: No scleral icterus. Pupils: Pupils are equal, round, and reactive to light. Neck: Thyroid: No thyromegaly. Vascular: No JVD. Cardiovascular: Rate and Rhythm: Normal rate and regular rhythm. Heart sounds: Normal heart sounds. No murmur heard. No friction rub. No gallop. Pulmonary: Effort: Pulmonary effort is normal. No respiratory distress. Breath sounds: Normal breath sounds. No wheezing or rales. Chest: Chest wall: No tenderness. Abdominal: General: Bowel sounds are normal. There is no distension. Palpations: Abdomen is soft. Tenderness: There is no abdominal tenderness. Musculoskeletal: General: No swelling. Cervical back: Neck supple. Skin: General: Skin is warm and dry. Neurological: General: No focal deficit present. Mental Status: She is alert and oriented to person, place, and time. Psychiatric: Mood and Affect: Mood normal. Behavior: Behavior is cooperative. Judgment: Judgment normal. Allergies No Known Allergies Medications Current Outpatient Medications: aspirin 81 mg EC tablet, in the morning., Disp: , Rfl: atorvastatin (Lipitor) 40 mg tablet, at bedtime., Disp: , Rfl: buPROPion XL (Wellbutrin XL) 150 mg 24 hr tablet, in the morning., Disp: , Rfl: busPIRone (Buspar) 15 mg tablet, every 8 (eight) hours., Disp: , Rfl: cariprazine (Vraylar) 6 mg capsule, 1 capsule in the morning., Disp: , Rfl: lithium 300 mg tablet, in the morning., Disp: , Rfl: lithium 600 mg capsule, Take 600 mg by mouth., Disp: (more content not included)... [facility] Evaluation + Plan note Note Date & Type Note Facility Evaluation + Plan note No data available for this section [facility] Discharge instructions Note Date & Type Note Facility Hospital Discharge instructions No data available for this section [facility] [place] Progress note Note Date & Type Note Facility Progress note No data available for this section [facility] [place] Summary Purpose Family History No Family History Records FoundNo Family History Records FoundNo Family History Records FoundNo Family History Records FoundNo Family History Records Found Advance Directives No Advanced Directives Records FoundNo Advanced Directives Records FoundNo Advanced Directives Records FoundNo Advanced Directives Records FoundNo Advanced Directives Records Found Additional Source Comments INFORMATION SOURCE (unrecogn ized section and content) DATE CREATED AUTHOR 07/31/2022 [facility] DATE CREATED AUTHOR AUTHOR'S ORGANIZ ATION 10/14/2022 [facility] DATE CREATED AUTHOR AUTHOR'S ORGANIZ ATION 10/22/2022 [facility] DATE CREATED AUTHOR AUTHOR'S ORGANIZ ATION 04/05/2023 [facility] DATE CREATED AUTHOR AUTHOR'S ORGANIZ ATION 12/11/2023 [facility] Patient Care team informatio n (unrecognized section and content) Personnel Name: Nola Ramirez MD Address: Address: [address] [place] [address] Name: Toya Wheel InstallerFlorence Personnel Name: Nola Ramirez MD Address: Address: [address] [place] [address] Name: Toya Wheel Installer, Amy FOR RECORDS PERTAINING TO PATIENTS WHO ARE OR HAVE BEEN ENROLLED IN A CHEMICAL DEPENDENCY/SUBSTANCEABUSE PROGRAM, SOME INFORMATION MAY BE OMITTED. This clinical summary was aggregated from multiple sources. Caution should be exercised in using it in the provision of clinical care. This summary normalizes information from multiple sources, and as a consequence, information in this document may materially change the coding, format and clinical context of patient data. In addition, data may be omitted in some cases. CLINICAL DECISIONS SHOULD BE BASED ON THE PRIMARY CLINICAL RECORDS. [facility] [employer] [facility] provides no warranty or guarantee of the accuracy or completeness of information in this document.
[2023-12-15 09:33] LABS: Basophils Absolute Auto 0.1 10^3/uL (0.0-0.1); Basophils Percent Auto 1.2 % (0.2-2.0); Eosinophils Percent Auto 0.1 % (0.9-7.0); Hematocrit 42.9 % (36.0-48.0); Hemoglobin 13.2 g/dL (12.0-16.0); Immature Granulocytes Abs Auto 0.23 10^3/uL (0.00-0.03); Immature Granulocytes Pct Auto 2.1 % (0.0-0.5); Lymphocytes Absolute Auto 2.4 10^3/uL (1.2-3.8); Lymphocytes Percent Auto 21.7 % (20.5-60.0); Mean Corpuscular HGB Conc 30.8 g/dL (29.9-35.2); Mean Corpuscular Hemoglobin 26.1 pg (26.7-34.0); Mean Corpuscular Volume 84.8 fL (81.0-99.0); Mean Platelet Volume 8.4 fL (9.5-13.5); Monocytes Absolute Auto 0.7 10^3/uL (0.3-0.8); Monocytes Percent Auto 6.7 % (1.7-12.0); Neutrophils Absolute Auto 7.5 10^3/uL (1.4-6.5); Neutrophils Percent Auto 68.2 % (43.0-75.0); Platelet Count 476 10^3/uL (150-450); Red Blood Count 5.06 10^6/uL (4.20-5.40); Red Cell Distribution Width 17.7 % (11.0-15.0)
[2023-12-15 10:17] LABS: Alanine Aminotransferase 24 U/L (14-59); Albumin Globulin Ratio 0.9; Albumin Level 3.5 g/dL (3.4-5.0); Alkaline Phosphatase 126 U/L (46-116); Anion Gap 15.6; Aspartate Amino Transferase 13 U/L (15-37); Bilirubin Total 0.2 mg/dL (0.2-1.0); Carbon Dioxide 24.6 mmol/L (21.0-32.0); Chloride 106 mmol/L (98-107); Chol HDL Ratio 4.8; Cholesterol 304 mg/dL (<=200); Estimated GFR (African America >60 (>=60); Estimated GFR (Non-African Ame >60 (>=60); Globulin 3.7 g/dL; Glucose 99 mg/dL (74-106); HDL Cholesterol 63 mg/dL (40-60); Potassium 4.2 mmol/L (3.5-5.1); Sodium 142 mmol/L (136-145); Total Protein 7.2 g/dL (6.4-8.2); Triglycerides 218 mg/dL (<=150); VLDL CHOLESTEROL 43.6 mg/dL
== END 2023-12-15 09:06 | disposition home or self-care (01) ==
PROVIDERS: PCP Family Medicine; Visit Provider Internal Medicine Interventional Cardiology
DX: E78.2 Mixed hyperlipidemia (principal); R06.02 Shortness of breath
CPT/HCPCS: 36415; 80053; 80061; 85025

== ENCOUNTER 2024-01-03 10:01 | Outpatient (OUT) | payer MEDICARE, SELFPAY ==
--- OUTSIDE RECORDS SUMMARY | 2024-01-03 10:06 | XMS_ITS | CCD ---
Author Name Unknown Address [address] [place] [address] Organization [facility] Care Team Providers [facility] [employer] Manager Name Role Phone Nola Ramirez Primary Care Physician Unavailab Nolan Ron Attending Physician Unavailable NOLA RAMIREZ Referring Unavailable NOLA RAMIREZ Primary Care Unavailable JESSIE ARNETT V Attending Unavailable JESSIE ARNETT V Admitting Unavailable Nola Ramirez Primary Care Physician Florence Pittman Unavailable Unavailable JAMES, DR VACA Primary Care Unavailable BART YOUNG Attending Unavailable BART YOUNG Admitting Unavailable KOKI, DR CONSUELO Ellsworth Consulting Unavailable DR NOLA RAMIREZ Primary Care Unavailable SAMSA, GAGAN Attending Unavailable SAMSA GAGAN Admitting Unavailable SAMSAGAGAN Consulting Unavailable JAMES, DR [...] Attending Unavailable NILL, DR SCHULER Admitting Unavailable JAMES, DR VACA Primary Care Unavailable KINJAL, ANTONY Attending Unavailable KINJAL, ANTONY Admitting Unavailable NILL, DR SCHULER Consulting Unavailable JAMES, DR VACA Primary Care Unavailable NILL, DR SCHULER Attending Unavailable NILL, DR SCHULER Admitting Unavailable RAVINDRABIJAN Montez Consulting Unavailable KUCHIPUDI, MARK Consulting Unavailable JAMES, DR VACA Consulting Unavailable JAMES, DR VACA Primary Care Unavailable JAMES, DR VACA Attending Unavailable JAMES, DR VACA Admitting Unavailable Zieber, DR Valenzuela Consulting Unavailable JAMES, DR VACA Primary Care [...] GAGAN Consulting Unavailable KINJAL, ANTONY Consulting Unavailable YUDITHY, DR VACA Primary Care Unavailable KINJAL, ANTONY Attending Unavailable KINJAL, ANTONY Admitting Unavailable HOY, DR VACA Consulting Unavailable HOY, [...] Salgado Attending Unavailable MOUKARBEL, JESSIE Attending Unavailable MOUKARBELJESSIE Attending Unavailable Dereck Walker Attending Unavailab Dereck Maldonado Admitting Unavailab Nola De La Fuente Primary Care Unavailable Allergies Allergy Classification Reported Allergen(s) Allergy Type Date of Onset Reaction(s) Facility (1 source) 35326,00 Drug allergy (disorder) 1 [facility] Repository (1 source) oxyCODONE; Translations: [OxyCODONE Hydrochloride] Drug Allergy [facility] Repository (1 source) No Known Medication Allergies; Translations: [No Known Medication Allergies] Propensity to adverse reactions (disorder) [facility] Repository Medications Current Medications Medication Drug [...] 300 mg by mouth once aarti y [place] Carbonate 300 MG Oral Daily June 13, 2019 Active Start: 06-13-2019 take 600 mg by mouth at bedtim e [place] Carbonate 600 MG Oral Bedtime 14 June 13, 2019 Active Start: 06-01-2019 End: 06-13-2019 take 300 mg by mouth at bedtime [place] Carbonate 300 MG Oral Bedtime June 01, 2019 June 13, 2019 Discontinued Start: 08-15-2018 End: 06-01-2019 take 150 mg by mouth at bedtime [place] Carbonate 150 MG Oral Bedtime February 27, [...] at bedtime Tizanidine 6 MG Oral Bedtime June 13, 2019 Active [...] without bleeding] Onset: 2 Episodic Essential hypertension (5 sources) Hypertensive disorder; Translations: [Essential (primary) hypertension] [...] 2 02-02-2014 Chronic Other 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 source) FDC (current) use of aspirin; Translations: [JAIL CURRENT USE OF ASPIRIN] Onset: 2 Episodic [...] disease 11-29-2020 Episodic Other lower respiratory disease (7 sources) Other forms of dyspnea; Translations: [OTHER FORMS OF DYSPNEA] Onset: 2 Episodic Other nutritional; endocrine; and [...] OTH BODY STRUC] Onset: 2 Chronic Other upper respiratory infections (1 source) Acute [...] OTH PART DIGESTV TRACT] Onset: 2 Episodic Residual codes; unclassified (3 sources) Localized edema; Translations: [LOCALIZED EDEMA] Onset: 2 Episodic Schizophrenia and other psychotic [...] Other Problems Problem Classification Problem Date Documented Date Episodic/Chronic Nausea and vomiting (1 source) Nausea Episodic Other lower respiratory disease (6 sources) Shortness of breath; Translations: [SHORTNESS OF BREATH] Onset: 07-20-2022 Episodic Other screening for suspected conditions (not mental disorders or infectious disease) (10 sources) Imaging of gastrointestinal tract abnormal; Translations: [Abnormal findings on diagnostic imaging of other parts of digestive tract] Onset: 07-24-2022 Episodic Suicide and intentional self-inflicted injury (1 source) Suicidal thoughts Episodic Unclassified (1 source) CONTACT W/AND (SUSP) EXPOS COVID-19; Translations: [CONTACT W/AND (SUSP) EXPOS COVID-19] Onset: 08-11-2022 Results Test Name Value Interpretation Reference Range Facility Office Visiton 12-15-2023 Follow-up visit [id number] Julia Medley 1960 F Date Provider Department Center 12/15/[address] [facility] Family History Problem Relation Age of Onset Hypertension Mother Hypertension Father Family Status - Relation Status Age at Mother Father Level of Service:21236 ME OFFICE/OUTPATIENT ESTABLISHED MOD MDM 30 MIN Normal [facility] Office Visiton 04-05-2023 Follow-up visit [id number] Julia Medley 1960 F Date Provider Department Center 04/05/2023 JESSIE RIVERA [facility] Family History Problem Relation Age of Onset Hypertension Mother Hypertension Father Family Status - Relation Status Age at Mother Father Level of Service:52577 ME OFFICE/OUTPATIENT ESTABLISHED MOD MDM 30-39 MIN Reason for Visit and Comments: Shortness of Breath [272945] Hyperlipidemia [182] [facility] Surgery Office/Clini c Noteon 10-21-2022 General [...] 2: Mother. Hypertension: Mother and Father. Normal [facility] Comment on above: Result Comment: Elec tronically Signed By: PORTIA LEHMAN, Ganga Valencia\Date and Time Signed: 10/21/22 15:25 EST Operative Reporton 2 Operative Report [id number]#1.00CD:127 [facility] Operative Reporton 2 Operative Report [id number]#1.00CD:127 [facility] Pathology Noteon 10-09-2022 Pathology Note [id number]#1.00CD:127 [facility] Lab Reportson 10-05-2022 Lab Reports [id number]#1.00CD:127 [facility] Covid-19 PCR (CVDTB)on 09-22 SARS-CoV-2 (COVID-19) RNA ISABEL+probe Ql (Unsp spec) Not detected Normal NOT DETECTED [facility] Comment on above: Result Comment: This test is not yet approved or cleared by the [place] FDA. When there are no FDA-approved or cleared tests available, and other criteria are met, FDA can make tests available under an emergency access mechanism called an Emergency Use Authorization (EUA). The EUA for this test is supported by the [place] Chief of Health and Human Service's (HHS's) declaration [...] consistent with SARS-CoV-2. Performed By: #### [facility] #### [facility] [address] [address] [address] Osmar Cox Consent for Procedure/Surger yon 09-03-2022 Consent for Procedure/Surgery [id number]:127 Normal [facility] Ambulatory Visit Summaryon 1 Ambulatory Visit Summary EBONY DYE :1960 Visit Date:09/02/2022 Ambulatory Visit Instructions Your Care Team Attending Physician - PORTIA LEHMAN, Ganga Salgado Primary Care Physician - [...] of Clostridium difficile infection Memory loss Normal [facility] Outside Hospital Correspo ndenceon 08-19-2022 Outside Hospital Correspondence [id number]#[id number]:127 Normal [facility] RAD - CT Reporton 08-19-2022 RAD - CT Report [id number]#[id number]:127 [facility] RAD - MISCon 08-19-2022 RAD - MISC [id number]#1.00CD:127 Normal [facility] Physician Referralon 022 Physician Referral [id number]#1.00CD:127 Normal [facility] PCR [facility]on 07-24 SARS-CoV-2 (COVID-19) RNA ISABEL+probe Ql (Unsp spec) Not detected Normal NOT DETECTED [facility] Comment on above: Result Comment: This test is not yet approved or cleared by the [place] FDA. When there are no FDA-approved or cleared tests available, and other criteria are met, FDA can make tests available under an emergency access mechanism called an Emergency Use Authorization (EUA). The EUA for this test is supported by the [place] of Health and Human Service's (HHS's) declaration [...] consistent with SARS-CoV-2. Performed By: #### C [facility] #### [facility] Laboratory [address] [place] [address] Dr. Osmar Cox XR MODIFIED BARIUM SWALLOWon [...] NICOLAS KIRK Date: 2022-08-06 15:18 Normal [facility] Cardiovascular Lab Reporton 07-29-2022 Cardiovascular Lab Report [facility] Patient Name: Ebony Medley [facility] MR #: [id number] Physician: Jessie De Oliveira of [facility]ie Arnett Medicine Service Date: 07/28/2022 Division of Birthdate: 1960 Cardiology Room #: [facility] Cardiovascular Services [place] [address] Cardiovascular Laboratory Report INDICATIONS: The patient is [...] signed informed consent. 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 The right neck area was prepped and draped in usual fashion. Micropuncture technique and ultrasound guidance were used for access in the right internal jugular vein. A 6-Sami x 11 cm sheath was placed. A 6-Sami Suarez catheter was used for right heart catheterization and measurement of pressures and calculation of cardiac output using the estimated Karina method. Suarez catheter was removed. Micropuncture technique and ultrasound guidance were used for access in the right radial artery. A 5-Sami x 11 cm slender sheath was advanced. Verapamil was given through the sheath and heparin was administered intravenously. Bilateral selective coronary angiography was then performed using 5-Sami JL 3.5 and JR5 diagnostic catheters. Catheters [...] Arnett M.D. Date Trans: 07/29/2022 03:31 A/gladys [id number] cc: Nola Ramirez M.D. [place] [id number] [facility] [id number] Normal [facility] CBC AUTO DIFFon 07-24-2022 BASO # 0.1 103/ul Normal 0.0-0.1 [facility] Comment on above: Performed By: #### C BC #### [facility] [address] [address] [address] Osmar Cox Basophils/100 WBC (Bld) 0.9 % Normal 0.2-2.0 [facility] Comment on above: Performed By: #### C BC #### [facility] [address] [place] [address] Dr. Osmar Cox EO # 0.0 103/ul Normal 0.0-0.7 [facility] Comment on above: Performed By: #### C BC #### [facility] [address] [place] [address] Dr. Osmar Cox Eosinophils/100 WBC (Bld) 0.1 % Critically low 0.9-7.0 [facility] Comment on above: Performed By: #### C BC #### [facility] [address] [place] [address] Dr. Osmar Cox Erythrocyte distribution width (RBC) [Ratio] 15.4 % Critically high 11.0-15.0 [facility] Comment on above: Performed By: #### C BC #### [facility] [address] [place] [address] Dr. Osmar Cox Hematocrit (Bld) [Volume fraction] 40.7 % Normal 36.0-48.0 [facility] Comment on above: Performed By: #### C BC #### [facility] [address] [place] [address] Dr. Osmar Cox Hemoglobin (Bld) [Mass/Vol] 12.5 g/dL Normal 12.0-16.0 [facility] Comment on above: Performed By: #### C BC #### [facility] [address] [place] [address] Dr. Osmar Cox IG # 0.08 10e3/ul Critically high 0.00-0.03 [facility] Comment on above: Performed By: #### C BC #### [facility] [address] [place] [address] Dr. Osmar Cox IG % 0.7 % Critically high 0.0-0.5 [facility] Comment on above: Performed By: #### C BC #### [facility] [address] [place] [address] Dr. Osmar Cox LYMPH # 2.6 103/ul Normal 1.2-3.8 [facility] Comment on above: Performed By: #### C BC #### [facility] [address] [place] [address] Dr. Osmar Cox Lymphocytes/100 WBC (Bld) 22.8 % Normal 20.5-60.0 [facility] Comment on above: Performed By: #### C BC #### [facility] [address] [place] [address] Dr. Osmar Cox MANUAL DIFF REQ NO Normal [facility] [place] [facility] Comment on above: Performed By: #### C BC #### [facility] [address] [place] [address] Dr. Osmar Cox MCH (RBC) [Entitic mass] 24.4 pg Critically low 26.7-34.0 [facility] Comment on above: Performed By: #### C BC #### [facility] [address] [place] [address] Dr. Osmar Cox MCHC (RBC) [Mass/Vol] 30.7 g/dL Normal 29.9-35.2 [facility] Comment on above: Performed By: #### C BC #### [facility] [address] [place] [address] Dr. sOmar Cox MCV (RBC) [Entitic vol] 79.3 fL Critically low 81.0-99.0 [facility] Comment on above: Performed By: #### C BC #### [facility] [address] [place] [address] Dr. Osmar Cox MONO # 1.0 103/ul Critically high 0.3-0.8 [facility] [place] [facility] Comment on above: Performed By: #### C BC #### [facility] [address] [place] [address] Dr. Osmar Cox Monocytes/100 WBC (Bld) 8.9 % Normal 1.7-12.0 [facility] Comment on above: Performed By: #### C BC #### [facility] [address] [place] [address] Dr. Osmar Cox NEUT # 7.6 103/ul Critically high 1.4-6.5 [facility] [place] [facility] Comment on above: Performed By: #### C BC #### [facility] [address] [address] [address] Osmar Cox Neutrophils/100 WBC (Bld) 66.6 % Normal 43.0-75.0 [facility] Comment on above: Performed By: #### C BC #### [facility] [address] [address] [address] Osmar Cox Platelet mean volume (Bld) [Entitic vol] 8.8 fL Critically low 9.5-13.5 [facility] Comment on above: Performed By: #### C BC #### [facility] [address] [place] [address] Dr. Osmar Cox PLT 438 103/ul Normal 150-450 [facility] Comment on above: Performed By: #### C BC #### [facility] [address] [place] [address] Dr. Osmar Cox RBC 5.13 106/ul Normal 4.20-5.40 [facility] Comment on above: Performed By: #### C BC #### [facility] [address] [place] [address] Dr. Osmar Cox WBC 11.3 103/ul Critically high 4.0-11.0 [facility] Comment on above: Performed By: #### C BC #### [facility] [address] [place] [address] Dr. Osmar Cox Covid-19 PCR ([facility])on SARS-CoV-2 (COVID-19) RNA ISABEL+probe Ql (Unsp spec) Not detected Normal NOT DETECTED [facility] Comment on above: Result Comment: This test is not yet approved or cleared by the [place] FDA. When there are no FDA-approved or cleared tests available, and other criteria are met, FDA can make tests available under an emergency access mechanism called an Emergency Use Authorization (EUA). The EUA for this test is supported by the [place] of Health and Human Service's (HHS's) declaration [...] consistent with SARS-CoV-2. Performed By: #### C [facility] #### [facility] [address] [place], [place] [address] CHEST HI RESOLUTIONon [...] CONSUELO TELLES Date: 2022-07-20 11:51 Normal [facility] BNPon 07-10-2022 Natriuretic peptide B (Bld) [Mass/Vol] 85.0 pg/mL Normal <=900.0 [facility] Comment on above: Performed By: #### B ADMINISTRATIVE UNDERWRITER, BMP, LIVER, LIPID ####[facility] [address] [place], [place] [address]Dr. Osmar Cox LIPID PROFILEon 07-10-2022 CHOL-HDL RATIO NORM SEE BELOW Normal [facility] Comment on above: Result Comment: 3.3 - 4.4 LOW RISK 4.4 - 7.1 AVERAGE RISK 7.1 - 11.0 MODERATE RISK >11.0 HIGH RISK Performed By: #### B ADMINISTRATIVE UNDERWRITER, BMP, LIVER, LIPID ####[facility] [address] [place] [address]Dr. Osmar Cox Cholesterol [Mass/Vol] 229 mg/dL Critically high <=200 [facility] Comment on above: Performed By: #### B ADMINISTRATIVE UNDERWRITER, BMP, LIVER, LIPID ####[facility] [address] [place] [address]Dr. Osmar Cox Cholesterol in HDL [Mass/Vol] 51 mg/dL Normal 40-60 [facility] Comment on above: Performed By: #### B ADMINISTRATIVE UNDERWRITER, BMP, LIVER, LIPID ####[facility] [address] [place] [address]Dr. Osmar Cox Cholesterol in LDL [Mass/Vol] 130.2 mg/dL Normal [facility] Comment on above: Performed By: #### B ADMINISTRATIVE UNDERWRITER, BMP, LIVER, LIPID ####[facility] [address] [place] [address]Dr. Osmar Cox Cholesterol.total/ Cholesterol in HDL [Mass ratio] 4.5 {ratio} Normal [facility] Comment on above: Performed By: #### B ADMINISTRATIVE UNDERWRITER, BMP, LIVER, LIPID ####[facility] [address] [place] [address]Dr. Osmar Cox HDL NORMAL > or = 60 mg/dl - LO W CARDIOVASCULAR RISK <40 mg/dl - HIGH CARDIOVASCULAR RISK Normal [facility] Comment on above: Performed By: #### B ADMINISTRATIVE UNDERWRITER, BMP, LIVER, LIPID ####[facility] [address] [place] [address]Dr. Osmar Cox LDL CALC NORMAL SEE BELOW Normal [facility] [place] [facility] Comment on above: Result Comment: <100 mg/dl OPTIMAL 100 - 129 mg/dl NEAR OR ABOVE OPTIMAL 130 - 159 mg/dl BORDERLINE HIGH 160 - 189 mg/dl HIGH >190 mg/dl VERY HIGH Performed By: #### B ADMINISTRATIVE UNDERWRITER, BMP, LIVER, LIPID ####[facility] [address] [place] [address]Dr. Osmar Cox Triglyceride [Mass/Vol] 239 mg/dL Critically high <=150 [facility] Comment on above: Performed By: #### B ADMINISTRATIVE UNDERWRITER, BMP, LIVER, LIPID ####[facility] [address] [place] [address]Dr. Osmar Cox VLDL CALC 47.8 mg/dL Normal [facility] Comment on above: Performed By: #### B ADMINISTRATIVE UNDERWRITER, BMP, LIVER, LIPID ####[facility] [address] [place] [address]Dr. Osmar Cox LIVER PROFILEon 07-10-2022 Albumin [Mass/Vol] 3.5 g/dL Normal 3.4-5.0 [facility] Comment on above: Performed By: #### B ADMINISTRATIVE UNDERWRITER, BMP, LIVER, LIPID ####[facility] [address] [place] [address]Dr. Osmar Cox Albumin/Globulin [Mass ratio] 1.0 {ratio} Normal [facility] Comment on above: Performed By: #### B ADMINISTRATIVE UNDERWRITER, BMP, LIVER, LIPID ####[facility] [address] [place] [address]Dr. Osmar Cox ALP [Catalytic activity/Vol] 183 U/L Critically high 46-116 [facility] Comment on above: Performed By: #### B ADMINISTRATIVE UNDERWRITER, BMP, LIVER, LIPID ####[facility] [address] [place] [address]Dr. Osmar Cox ALT [Catalytic activity/Vol] 32 U/L Normal 14-59 [facility] Comment on above: Performed By: #### B ADMINISTRATIVE UNDERWRITER, BMP, LIVER, LIPID ####[facility] [address] [place] [address]Dr. Osmar Cox AST [Catalytic activity/Vol] 17 U/L Normal 15-37 [facility] Comment on above: Performed By: #### B ADMINISTRATIVE UNDERWRITER, BMP, LIVER, LIPID ####[facility] [address] [place] [address]Dr. Osmar Cox BILI, CONJUGATED 0.1 mg/dL Normal 0.0-0.2 [facility] Comment on above: Performed By: #### B ADMINISTRATIVE UNDERWRITER, BMP, LIVER, LIPID ####[facility] [address] [place] [address]DrKate Cox Bilirubin [Mass/Vol] 0.2 mg/dL Normal 0.2-1.0 [facility] Comment on above: Performed By: #### B ADMINISTRATIVE UNDERWRITER, BMP, LIVER, LIPID ####[facility] [address] [place] [address]Dr. Osmar Cox Globulin (S) [Mass/Vol] 3.5 g/dL Normal [facility] Comment on above: Performed By: #### B ADMINISTRATIVE UNDERWRITER, BMP, LIVER, LIPID ####[facility] [address] [place] [address]DrKate Cox Protein [Mass/Vol] 7.0 g/dL Normal 6.4-8.2 The [facility] Comment on above: Performed By: #### B ADMINISTRATIVE UNDERWRITER, BMP, LIVER, LIPID ####[facility] [address] [place] [address]DrKate Cox PROF CHEM 8 (BAS METB)on Anion gap [Moles/Vol] 11.6 mmol/L Normal [facility] Comment on above: Performed By: #### B ADMINISTRATIVE UNDERWRITER, BMP, LIVER, LIPID #### [facility] [address] [address] [address] Osmar Cox Calcium [Mass/Vol] 8.9 mg/dL Normal 8.5-10.1 The [facility] Comment on above: Performed By: #### B ADMINISTRATIVE UNDERWRITER, BMP, LIVER, LIPID #### [facility] [address] [address] [address] Osmar Cox Chloride [Moles/Vol] 104 mmol/L Normal 98-107 [facility] Comment on above: Performed By: #### B ADMINISTRATIVE UNDERWRITER, BMP, LIVER, LIPID #### [facility] [address] [address] [address] Osmar Cxo CO2 [Moles/Vol] 26.0 mmol/L Normal 21.0-32.0 [facility] Comment on above: Performed By: #### B ADMINISTRATIVE UNDERWRITER, BMP, LIVER, LIPID #### [facility] [address] [address] [address] Osmar Cox Creatinine [Mass/Vol] 0.80 mg/dL Normal 0.55-1.02 [facility] Comment on above: Performed By: #### B ADMINISTRATIVE UNDERWRITER, BMP, LIVER, LIPID #### [facility] [address] [address] [address] Osmar Cox EGFR-AF NIGERIEN >60 Normal >=60 [facility] Comment on above: Performed By: #### B ADMINISTRATIVE UNDERWRITER, BMP, LIVER, LIPID #### [facility] [address] [address] [address] Osmar Cox EGFR-NON AF NIGERIEN >60 Normal >=60 [facility] Comment on above: Performed By: #### B ADMINISTRATIVE UNDERWRITER, BMP, LIVER, LIPID #### [facility] [address] [address] [address] Osmar Cox Glucose [Mass/Vol] 100 mg/dL Normal 74-106 [facility] Comment on above: Performed By: #### B ADMINISTRATIVE UNDERWRITER, BMP, LIVER, LIPID #### [facility] [address] [address] [address] Osmar Cox Potassium [Moles/Vol] 4.6 mmol/L Normal 3.5-5.1 [facility] Comment on above: Performed By: #### B ADMINISTRATIVE UNDERWRITER, BMP, LIVER, LIPID #### [facility] [address] [address] [address] Osmar Cox Sodium [Moles/Vol] 137 mmol/L Normal 136-145 [facility] Comment on above: Performed By: #### B ADMINISTRATIVE UNDERWRITER, BMP, LIVER, LIPID #### [facility] [address] [address] [address] Osmar Cox Urea nitrogen [Mass/Vol] 20.0 mg/dL Critically high 7.0-18.0 [facility] Comment on above: Performed By: #### B ADMINISTRATIVE UNDERWRITER, BMP, LIVER, LIPID #### [facility] [address] [address] [address] Osmar Cox Urea nitrogen/Creatinin e [Mass ratio] 25.0 mg/mg Normal [facility] Comment on above: Performed By: #### B ADMINISTRATIVE UNDERWRITER, BMP, LIVER, LIPID #### [facility] [address] [address] [address] Osmar Cox XR CHEST 2 Von [...] by: CONSUELO TELLES Date: 2022-06-04 19:26 Normal [facility] HEMOGLOBINon 06-02-2022 Hemoglobin (Bld) [Mass/Vol] 12.1 g/dL Normal 12.0-16.0 [facility] Comment on above: Performed By: #### H GB #### [facility] [address] [place] [address] Dr. Osmar Cox XR CHEST 2 Von [...] CONSUELO TELLES Date: 2022-06-02 19:19 Normal [facility] NM STRESS/REST MULTIon 05-06 NM STRESS/REST MULTI Patient: EBONY MEDLEYKate Exam Date: 05/06/2022 : 1960 Gender:F Ordering : DR NOLA RAMIREZ . Admission #: [id number] Family : Order #: [id number] CLICK HERE TO VIEW EXAM RADIOLOGY REPORT [...] Kirk M.D. on 05/07/2022 at 11:04 Normal [facility] ECHOCARDIO M/2D COMPLETEon 0 04-29-2022 ECHOCARDIO M/2D COMPLETE Patient: EBONY MEDLEY Exam Date: 04/29/2022 : 1960 Gender:F Ordering : DR NOLA RAMIREZ . Admission #: [id number] Family : Order #: [id number] CLICK HERE TO VIEW EXAM ECHOCARDIOGRAM REPORT [...] Jessie Arnett M.D. on 04/30/2022 at 20:09 Normal [facility] LITHIUMon 03-20-2022 [place] (Eskalith(R)), Serum 0.6 mmol/L Normal 0.5-1.2 [facility] Comment on above: Result Comment: Plas ma concentration of 0.5 - 0.8 mmol/L are advised for long-term use; concentrations of up to 1.2 mmol/L may be necessary during acute treatment. Detection Limit = 0.1 <0.1 indicates None Detected Performed By: #### L ITHIUM ####[facility] [address] [address]Dr. Osmar Cox LIPID PROFILEon 03-19-2022 CHOL-HDL RATIO NORM SEE BELOW Normal [facility] Comment on above: Result Comment: 3.3 - 4.4 LOW RISK 4.4 - 7.1 AVERAGE RISK 7.1 - 11.0 MODERATE RISK >11.0 HIGH RISK Performed By: #### T SH, T4, LIPID, CMP ####[facility] [address] [address]Dr. Osmar Cox Cholesterol [Mass/Vol] 269 mg/dL Critically high <=200 [facility] Comment on above: Performed By: #### T SH, T4, LIPID, CMP ####[facility] [address] [address]Dr. Osmar Cox Cholesterol in HDL [Mass/Vol] 48 mg/dL Normal 40-60 [facility] Comment on above: Performed By: #### T SH, T4, LIPID, CMP ####[facility] [address] [place], [place] [address]Dr. Osmar Cox Cholesterol in LDL [Mass/Vol] 145.8 mg/dL Normal [facility] Comment on above: Performed By: #### T SH, T4, LIPID, CMP ####[facility] [address] [id number]. Osmar Cox Cholesterol.total/ Cholesterol in HDL [Mass ratio] 5.6 {ratio} Normal [facility] Comment on above: Performed By: #### T SH, T4, LIPID, CMP ####[facility] [address] [address]Dr. Osmar Cox HDL NORMAL > or = 60 mg/dl - LO W CARDIOVASCULAR RISK <40 mg/dl - HIGH CARDIOVASCULAR RISK Normal [facility] Comment on above: Performed By: #### T SH, T4, LIPID, CMP ####[facility] [address] [place], [place] [address]Dr. Osmar Cox LDL CALC NORMAL SEE BELOW Normal [facility] Comment on above: Result Comment: <100 mg/dl OPTIMAL 100 - 129 mg/dl NEAR OR ABOVE OPTIMAL 130 - 159 mg/dl BORDERLINE HIGH 160 - 189 mg/dl HIGH >190 mg/dl VERY HIGH Performed By: #### T SH, T4, LIPID, CMP ####[facility] [address] [address]Dr. Osmar Cox Triglyceride [Mass/Vol] 376 mg/dL Critically high <=150 [facility] Comment on above: Performed By: #### T SH, T4, LIPID, CMP ####[facility] [address] [address]Dr. Osmar Cox VLDL CALC 75.2 mg/dL Normal [facility] Comment on above: Performed By: #### T SH, T4, LIPID, CMP ####[facility] [address] [address]Dr. Osmar Cox PROF 14(COMP METB)on 022 Albumin [Mass/Vol] 3.4 g/dL Normal 3.4-5.0 [facility] Comment on above: Performed By: #### T SH, T4, LIPID, CMP ####[facility] [address] [address]Dr. Osmar Cox Albumin/Globulin [Mass ratio] 1.0 {ratio} Normal [facility] Comment on above: Performed By: #### T SH, T4, LIPID, CMP ####[facility] [address] [address]Dr. Osmar Cox ALP [Catalytic activity/Vol] 118 U/L Critically high 46-116 [facility] Comment on above: Performed By: #### T SH, T4, LIPID, CMP ####[facility] [address] [address]Dr. Osmar Cox ALT [Catalytic activity/Vol] 17 U/L Normal 14-59 [facility] Comment on above: Performed By: #### T SH, T4, LIPID, CMP ####[facility] [address] [address]Dr. Osmar Cox Anion gap [Moles/Vol] 11.3 mmol/L Normal [facility] Comment on above: Performed By: #### T SH, T4, LIPID, CMP ####[facility] [address] [address]Dr. Osmar Cox AST [Catalytic activity/Vol] 11 U/L Critically low 15-37 [facility] Comment on above: Performed By: #### T SH, T4, LIPID, CMP ####[facility] [address] [place], [place] [address]Dr. Osmar Cox Bilirubin [Mass/Vol] 0.2 mg/dL Normal 0.2-1.0 [facility] Comment on above: Performed By: #### T SH, T4, LIPID, CMP ####[facility] [address] [place], [place] [address]Dr. Osmar Cox Calcium [Mass/Vol] 8.7 mg/dL Normal 8.5-10.1 [facility] Comment on above: Performed By: #### T SH, T4, LIPID, CMP ####[facility] [address] [place], [place] [address]Dr. Osmar Cox Chloride [Moles/Vol] 106 mmol/L Normal 98-107 [facility] Comment on above: Performed By: #### T SH, T4, LIPID, CMP ####[facility] [address] [place], [place] [address]Dr. Osmar Cox CO2 [Moles/Vol] 23.6 mmol/L Normal 21.0-32.0 [facility] Comment on above: Performed By: #### T SH, T4, LIPID, CMP ####[facility] [address] [place], [place] [address]Dr. Osmar Cox Creatinine [Mass/Vol] 0.86 mg/dL Normal 0.55-1.02 [facility] Comment on above: Performed By: #### T SH, T4, LIPID, CMP ####[facility] [address] [place], [place] [address]Dr. Osmar Cox EGFR-AF NIGERIEN >=60 Normal >=60 [facility] Comment on above: Performed By: #### T SH, T4, LIPID, CMP ####[facility] [address] [address]Dr. Osmar Cox EGFR-NON AF NIGERIEN >=60 Normal >=60 [facility] Comment on above: Performed By: #### T SH, T4, LIPID, CMP ####[facility] [address] [address]Dr. Osmar Cox Globulin (S) [Mass/Vol] 3.3 g/dL Normal [facility] Comment on above: Performed By: #### T SH, T4, LIPID, CMP ####[facility] [address] [address]Dr. Osmar Cox Glucose [Mass/Vol] 104 mg/dL Normal 74-106 [facility] Comment on above: Performed By: #### T SH, T4, LIPID, CMP ####[facility] [address] [place], [place] [address]Dr. Osmar Cox Potassium [Moles/Vol] 4.9 mmol/L Normal 3.5-5.1 [facility] Comment on above: Performed By: #### T SH, T4, LIPID, CMP ####[facility] [address] [place], [place] [address]Dr. Osmar Cox Protein [Mass/Vol] 6.7 g/dL Normal 6.1-8.2 [facility] Comment on above: Performed By: #### T SH, T4, LIPID, CMP ####[facility] [address] [place], [place] [address]Dr. Osmar Cox Sodium [Moles/Vol] 136 mmol/L Normal 136-145 [facility] Comment on above: Performed By: #### T SH, T4, LIPID, CMP ####[facility] [address] [place], [place] [address]Dr. Osmar Cox Urea nitrogen [Mass/Vol] 25.0 mg/dL Critically high 7.0-18.0 [facility] Comment on above: Performed By: #### T SH, T4, LIPID, CMP ####[facility] [address] [address]Dr. Osmar Cox Urea nitrogen/Creatinin e [Mass ratio] 29.1 mg/mg Normal [facility] Comment on above: Performed By: #### T SH, T4, LIPID, CMP ####[facility] [address] [place], [place] [address]Lb. Osmar Cox T4on 03-19-2022 T4 [Mass/Vol] 7.60 ug/dL Normal 4.80-13.90 [facility] Comment on above: Performed By: #### T SH, T4, LIPID, CMP ####[facility] [address] [place], [place] [address]Ew. Osmar Cox TSHon 03-19-2022 TSH 1.427 uIU/mL Normal 0.470-4.680 [facility] Comment on above: Performed By: #### T SH, T4, LIPID, CMP ####[facility] [address] [place], [place] [address]Ii. Osmar [facility] TSH RANGE SEE BELOW Normal [facility] Comment on above: Result Comment: <0.3 4 UIU/ml HYPERTHYROID 0.34-5.60 UIU/ml EUTHYROID >5.60 UIU/ml HYPOTHYROID Performed By: #### T SH, T4, LIPID, CMP ####[facility] [address] [address]Dr. Osmar [facility] Laboratory Studieson 018 Albumin [Mass/Vol] 3.8 g/dL 3.2-5.5 [facility] Albumin/Globulin [Mass ratio] 1.5 {ratio} [facility] ALP [Catalytic activity/Vol] 75 U/L 32-92 [facility] ALT No additional P-5'-P [Catalytic activity/Vol] 16 U/L 10-60 [facility] AST [Catalytic activity/Vol] 18 U/L 10-42 [facility] Basophils (Bld) [#/Vol] 0.1 10*3/uL 0.0-0.2 [facility] Basophils/100 WBC (Bld) 1.0 % [facility] Bilirubin [Mass/Vol] 0.5 mg/dL 0.3-1.2 [facility] Calcium [Mass/Vol] 9.2 mg/dL 8.2-10.2 [facility] Carbamazepine [Mass/Vol] < 2.0 ug/mL Low 4.0-12.0 [facility] Chloride [Moles/Vol] 103 mmol/L 95-114 [facility] CK [Catalytic activity/Vol] 46 U/L 22-269 [facility] CK.MB [Mass/Vol] 1.0 ng/mL 0.6-6.3 [facility] CK.MB Calc [Catalytic fraction] 2.1 0.00-2.50 [facility] CO2 [Moles/Vol] 24.9 mmol/L 22.0-30.0 [facility] Creatinine [Mass/Vol] 0.58 mg/dL 0.44-1.03 [facility] Eosinophils (Bld) [#/Vol] 0.2 10*3/uL 0.0-0.45 [facility] Eosinophils/100 WBC (Bld) 3.1 % [facility] Erythrocyte distribution width (RBC) [Ratio] 13.5 % 11.9-15.3 [facility] Ethanol [Mass/Vol] mg/dL [facility] Ethanol [Mass/Vol] TNP [facility] Comment on above: Test not performed GFR/1.73 sq M predicted among blacks MDRD (S/P/Bld) [Vol rate/Area] mL/min/{1.73_m2} [facility] Comment on above: GFR estimated refere nce range: According to KDOQI guidelines, <60 ml/min/1.73m2 is sufficient to diagnose a patient with chronic kidney disease. GFR/1.73 sq M predicted among non-blacks MDRD (S/P/Bld) [Vol rate/Area] mL/min/{1.73_m2} [facility] Globulin (S) [Mass/Vol] 2.6 g/dL [facility] Glucose [Mass/Vol] 96 mg/dL 70-100 [facility] Comment on above: ADA recommended refe rence range Random Glucose Reference Range is dependent on time and content of last meal. Glucose of more than 200 mg/dL in a nonstressed, ambulatory subject supports the diagnosis of Diabetes Mellitus. Hematocrit (Bld) [Volume fraction] 38.7 % 34.0-46.4 [facility] Hemoglobin (Bld) [Mass/Vol] 12.8 g/dL 11.8-15.4 [facility] Lymphocytes (Bld) [#/Vol] 2.1 10*3/uL 1.00-4.8 [facility] Lymphocytes/100 WBC (Bld) 33.0 % [facility] MCH (RBC) [Entitic mass] 28.3 pg 24.7-34.3 [facility] MCHC (RBC) [Mass/Vol] 33.1 g/dL 32.0-35.0 [facility] MCV (RBC) [Entitic vol] 85.4 fL 80-100 [facility] Monocytes (Bld) [#/Vol] 0.5 10*3/uL 0.0-0.8 [facility] Monocytes/100 WBC (Bld) 7.2 % [facility] Neutrophils (Bld) [#/Vol] 3.5 10*3/uL 1.8-7.7 [facility] Neutrophils/100 WBC (Bld) 55.7 % [facility] Creatinine Clearance (Chem 87.4588 [facility] Platelet mean volume (Bld) [Entitic vol] 6.9 fL 6.3-10.7 [facility] Platelets (Bld) [#/Vol] 270 10*3/uL 150-450 [facility] Potassium [Moles/Vol] 4.3 mmol/L 3.5-5.1 [facility] Protein [Mass/Vol] 6.4 g/dL 6.1-7.9 [facility] RBC (Bld) [#/Vol] 4.52 10*6/uL 3.60-5.00 [facility] Sodium [Moles/Vol] 136 mmol/L 136-146 [facility] Troponin I.cardiac [Mass/Vol] ng/mL 0-0.02 [facility] Comment on above: RIZWANA ID Cut off value > or equal to 0.03 ng/mL in conjunction with clinical conditions of myocardial infarction. (www.escardio.org/guidelines) Urea nitrogen [Mass/Vol] 18 mg/dL 9-23 [facility] Valproate [Mass/Vol] 52.6 ug/mL 50.0-100.0 [facility] Comment on above: Last dose: - WBC (Bld) [#/Vol] 6.3 10*3/uL 3.8-11.6 [facility] Amphetamines Ql (U) Negative [facility] Barbiturates Ql (U) Negative [facility] Benzodiazepines Ql (U) Negative [facility] Bilirubin Ql (U) Negative [facility] Cannabinoids Screen Ql (U) Negative [facility] Comment on above: These are unconfirme d results and should not be used for legal purposes. Drug Cut-Off Concentration: AMPH 1000 ng/mL ALFREDO 200 ng/mL JAXON 200 ng/mL COCM 300 ng/mL OP 300 ng/mL PCP 25 ng/mL THC 20 ng/mL Clarity Refractometry automated (U) Clear [facility] Cocaine Ql (U) Negative [facility] Color (U) Yellow [facility] Glucose Auto test strip (U) [Mass/Vol] Normal mg/dL [facility] Hemoglobin Auto test strip Ql (U) Negative [facility] Ketones (U) [Mass/Vol] Negative [facility] Leukocyte esterase Auto test strip Ql (U) Negative [facility] Nitrite Ql (U) Negative [facility] Opiates Ql (U) Negative [facility] pH (U) 6.5 [pH] 5.0-9.0 [facility] Phencyclidine Ql (U) Negative [facility] Protein (U) [Mass/Vol] Negative [facility] Specific gravity (U) [Rel density] 1.018 1.001-1.030 [facility] Urobilinogen (U) [Mass/Vol] Normal mg/dL [facility] Vital Signs Date Time Vital Sign Value Performing Clinician Facility 09-02-2022 13:44-0400 Blood Pressure Location Ganga PEARCE [facility] [place] 09-02-2022 13:44-0400 Diastolic blood pressure 82 mm[Hg] [facility] [place] 09-02-2022 13:44-0400 Heart rate 72 /min Ganga PEAR[facility] [place] 09-02-2022 13:44-0400 Respiratory rate 16 /min Ganga PEAR[facility] [place] 09-02-2022 13:44-0400 Systolic blood pressure 120 mm[Hg] Ganga [facility] [place] 03-07-2019 15:00-0400 Body Temperature 97.8 [degF] [facility] 03-07-2019 15:00-0400 BP Diastolic 88 mm[Hg] [facility] 03-07-2019 15:00-0400 BP Systolic 158 mm[Hg] [facility] 03-07-2019 15:00-0400 Pulse (Heart Rate) 78 /min [facility] 03-07-2019 15:00-0400 Pulse Oximetry 95 % [facility] 03-07-2019 15:00-0400 Respiratory Rate 16 /min [facility] Body weight [facility] NEGATED: Highlighted row BMI (Body Mass Index) [facility] NEGATED: Highlighted row Height [facility] Encounters Encounter Date Encounter Type Care Provider Facility Start: 12-15-2023 End: 12-15-2023 ambulatory [facility] Start: 09-24-2023 ambulatory Dereck De La Rosa acility:[facility] Start: 04-05-2023 End: 04-05-2023 ambulatory [facility] Start: 10-21-2022 End: 10-22-2022 ambulatory Ganga PEARCE Facility: [facility] Start: 10-21-2022 End: 10-21-2022 Patient encounter procedure Ganga PEARCE [facility] [place] Start: 10-08-2022 Encounter for preprocedural laboratory examination DR GANGA PEARCE [facility] Start: 10-07-2022 End: 10-08-[address] GANGA PEARCE Facility:[facility] Start: 10-03-2022 End: 10-04-[address] GANGA PEARCE Facility:[facility] Start: 10-03-2022 End: 10-04-2022 Encounter for preprocedural laboratory examination DR GANGA PEARCE Facility:[facility] Start: 09-02-2022 End: 09-03-2022 ambulatory Ganga PEARCE Facility:[facility] Start: 09-02-2022 End: 09-02-2022 Patient encounter procedure Ganga PEARCE General Surgery [facility] Start: 08-11-2022 End: 08-11-[address] NOLA RAMIREZ Facility:[facility] Start: 08-06-2022 End: 08-07-[address] Nicolas Kirk Facility:[facility] Start: 07-28-2022 End: 07-29-2022 ambulatory NOLA RAMIREZ Facility:[facility] Start: 07-24-2022 End: 07-25-[address] [...] End: 03-15-2019 Patient encounter procedure Nola ramses [facility] Start: 03-07-2019 End: 03-07-2019 [facility] Start: 02-01-2018 End: 02-01-2018 Emergency department patient visit Nola Ramirez [facility] Start: 06-07-2014 End: 06-12-2014 Evaluation and management of inpatient [facility] Start: 06-17-2011 End: 06-20-2011 Evaluation and management of inpatient [facility] Start: 05-01-2011 End: 05-18-2011 Evaluation and management of inpatient [facility] Start: 05-27-2010 End: 06-26-2010 Discharged Recurring [facility] Start: 05-22-2010 End: 06-21-2010 Discharged Recurring [facility] Start: 04-22-2010 End: 05-21-2010 Discharged Recurring [facility] Start: 03-22-2010 End: 04-21-2010 [facility]: 02-20[facility]2010 End: 03-21-2010 [facility]: 01-20-2010 End: 02-19-2010 [facility] Start: 01-20-2010 End: 02-19-2010 Discharged Recurring [facility] Start: 01-16-2010 End: 01-19-2010 Discharged Recurring Nola Hoy [facility] Start: 12-23-2009 End: 01-19-2010 Discharged Recurring Nola Hoy [facility] Start: 11-23-2009 End: 12-22-2009 Discharged Recurring Nola Hoy [facility] Start: 11-22-2009 End: 01-20-2010 Discharged Recurring Nola ramses [facility] Start: 10-22-2009 End: 11-21-2009 Discharged Recurring Nola ramses [facility] Start: 10-15-2009 End: 11-22-2009 Discharged Recurring Nloa Hoy [facility] Start: 09-22-2009 End: 10-21-2009 Discharged Recurring Noal ramses [facility] Start: 08-22-2009 End: 09-21-2009 Discharged Recurring Nola ramses [facility] Start: 08-06-2009 End: 08-21-2009 Discharged Recurring Nola Hoy [facility] Start: 07-02-2009 End: 07-22-2009 Discharged Recurring Nola ramses [facility] Start: 06-04-2009 End: 06-21-2009 Discharged Recurring Nola ramses [facility] Start: 04-22-2009 End: 05-21-2009 Discharged Recurring Nola ramses [facility] Start: 03-22-2009 End: 04-21-2009 Discharged Recurring Nola ramses [facility] Start: 02-20-2009 End: 03-21-2009 Discharged Recurring [facility] Start: 02-10-2009 End: 02-10-2009 Emergency department patient visit Nola Hoy [facility] Start: 01-21-2009 End: 02-19-2009 Discharged Recurring Nola Hoy [facility] Start: 12-24-2008 End: 01-19-2009 Discharged Recurring Nola Hoy [facility] Start: 11-23-2008 End: 12-22-2008 Discharged Recurring Nola Hoy [facility] Start: 10-22-2008 End: 11-21-2008 Discharged Recurring Nola Hoy [facility] Start: 09-22-2008 End: 10-21-2008 Discharged Recurring Nola Hoy [facility] Start: 08-22-2008 End: 09-21-2008 Discharged [facility] [facility] Start: 07-24-2008 End: 08-21-2008 Discharged Recurring Nola Hoy [facility] Start: 07-02-2008 End: 07-05-2008 Evaluation and management of inpatient Nola Hoy [facility] Start: 06-22-2008 End: 07-22-2008 Discharged Recurring Nola ramses [facility] Start: 06-05-2008 End: 06-14-2008 Evaluation and management of inpatient Nola ramses [facility] Start: 05-29-2008 End: 06-21-2008 Discharged Recurring Nola ramses [facility] Start: 04-24-2008 End: 05-21-2008 Discharged Recurring Nola ramses [facility] Start: 03-22-2008 End: 04-21-2008 Discharged Recurring Nola ramses [facility] Start: 02-21-2008 End: 03-21-2008 Discharged Recurring Nola Hoy [facility] Start: 02-14-2008 End: 02-20-2008 Discharged Recurring Nola Hoy [facility] Start: 12-23-2007 End: 01-20-2008 Discharged Recurring Nola Hoy [facility] Start: 12-20-2007 End: 12-23-2007 Evaluation and management of inpatient Nola Ramirez [facility] Start: 11-22-2007 End: 12-22-2007 Discharged Recurring Nola Hoy [facility] Start: 10-22-2007 End: 11-21-2007 Discharged Recurring Nola Hoy [facility] Start: 09-22-2007 End: 10-21-2007 Discharged Recurring Nola Hoy [facility] Start: 08-22-2007 End: 09-21-2007 Discharged Recurring Nola Hoy [facility] Start: 07-23-2007 End: 08-21-2007 Discharged Recurring Nola James [facility] Start: 06-22-2007 End: 07-22-2007 Discharged Recurring Nola Hoy [facility] Start: 05-22-2007 End: 06-21-2007 Discharged Recurring Nola ramses [facility] Start: 04-28-2007 End: 04-28-2007 Emergency department patient visit Nola Ramirez [facility] Start: 04-28-2007 End: 04-28-2007 Patient encounter procedure Nola ramses [facility] Start: 04-28-2007 End: 05-21-2007 Discharged Recurring [facility] Start: 03-01-2002 End: 03-21-2002 Discharged Recurring [facility] Start: 03-01-2002 End: 03-04-2002 [facility] Start: 03-24-2001 End: 03-24-2001 Discharged Recurring [facility] Start: 03-24-2001 End: 04-04-2001 Evaluation and management of inpatient [facility] Start: 09-27-1996 End: 09-30-1996 Evaluation and management of inpatient [facility] Start: 08-19-1995 End: 08-19-1995 Emergency department patient visit [facility] Start: 09-27-1993 End: 09-27-1993 Patient encounter procedure [facility] Procedures Date Procedure Procedure Detail Performing Clinician Start: 10-07-2022 Esophagogastroduodenoscopy Ganga PEARCE Start: 07-28-2022 Cardiac catheterization Ganga PEARCE Start: 12-05-2020 Hernia repair Ganga PEARCE Start: 03-07-2019 Arthroscopy of shoulder A Olexa Nolan Start: 11-22-1996 Abdominal hysterectomy Ganga ZUNIGAL Arthroscopy of shoulder Palmer ael PORTIA Cholecystectomy Ganga ZUNIGAL Ectopic (disorder) Ganga ZUNIGAL Exploratory laparotomy Yrn jhon PEARCE History of subtotal thyroidectomy Ganga ZUNIGAL History of tonsillectomy Chuy hael NILL Partial resection of colon Cali garcia NILL Payers Date Payer Category Payer Self-pay 1960 Medicaid [id number] 1960 Medicare [id number] 1959 Self-pay [id number] 1959 Unknown [id number] 2.16.8 40.1.806893.3.579.2.647 1959 Unknown [id number] 2.16.84 0.1.225803.3.579.2.593 1959 Unknown [id number] 2.16.84 0.1.131242.3.579.2.593 1959 Unknown [id number] 2.16.84 0.1.468490.3.579.2.593 1959 Unknown [id number] 2.16.84 0.1.025870.3.579.2.593 1959 Unknown [id number] 2.16.84 0.1.090270.3.579.2.593 1959 Unknown [id number] 2.16.84 0.1.463260.3.579.2.593 1959 Unknown [id number] 2.16.84 0.1.999877.3.579.2.593 1959 Unknown [id number] 2.16.84 0.1.758244.3.579.2.593 1959 Unknown [id number] 2.16.84 0.1.988580.3.579.2.593 1959 Unknown [id number] 2.16.84 0.1.926128.3.579.2.593 1959 Unknown [id number] 2.16.84 0.1.394354.3.579.2.593 1959 Unknown [id number] 2.16.84 0.1.643413.3.579.2.593 1959 Unknown [id number] 2.16.84 0.1.712770.3.579.2.593 1959 Unknown [id number] 2.16.84 0.1.203714.3.579.2.593 1959 Unknown [id number] 2.16.84 0.1.812857.3.579.2.593 1959 Unknown [id number] 2.16.8 40.1.337868.3.579.2.727 1959 Unknown [id number] 2.16.8 40.1.733245.3.579.2.727 1959 Unknown [id number] 2.16.8 40.1.707102.3.579.2.727 Medicare [id number] Unknown [id number] 2.16.8 40.1.436728.3.579.2.531 Social History Date Type Detail Facility Start: 09-02-2022 Tobacco smoking status Ex-smoker (fi nding) [facility] Tobacco smoking status Never [facility] [place] Sex Assigned At Female [facility] [place] [facility] Medical Equipment Procedure Code Equipment Code Equipment Origin al Text Equipment Identifier Dates HERNIA REPAIR, R OBOT ASSISTED Ganga PEARCE MD 12/05/20 Non Biological Abdomen {[id number] FDA Start: 12-05-2020 Functional Status Date Assessment Result Facility 09-02-2022 Functional Status N/A [facility] Progress note 12-15-2023 Note Date & Type Note Facility 12-15-2023 Note [facility] Kaitlynn Medley is a 63 y.o. year old female patient being seen for 6 mo follow up SOB and hyperlipidemia. Had labs this morning. SOB w/ exertion remains unchanged. Denies chest pain, palpitations, and lightheadedness. Down 15# since last visit in March 2023. Patient Active Problem List Diagnosis Dyspnea on exertion Mixed hyperlipidemia Abnormal barium swallow Bladder incontinence Dysphagia, oropharyngeal Esophagitis on biopsy HTN (hypertension) Incisional hernia BMI 35.0-35.9,adult Obstructive sleep apnea syndrome Rectal prolapse Restless legs syndrome Family History Problem Relation Name Age of [...] palpitations. She is taking medications as prescribed. Update 12/15/2023: She is seen in follow-up. Today she reports that she has been doing relatively well. She continues to have shortness of breath on exertion. No change in her symptoms. Denies chest pain. Her leg swelling has responded after addition of spironolactone. She has lost significant amount of weight since last year. No palpitations. She has not taken atorvastatin for a month as she ran out. Her blood testing today showed significantly elevated LDL. Review of Systems Constitutional: Positive for weight loss (15# since March 2023). Cardiovascular: Positive for dyspnea on exertion and leg swelling. Musculoskeletal: Positive for arthritis, back pain and joint pain. All other systems reviewed and are negative. Objective Visit Vitals BP 140/82 (BP Location: Left arm, Patient Position: Sitting) Pulse 90 Ht 1.6 m (5' 3 ) Wt 84.8 kg (187 lb) SpO2 98% BMI 33.13 kg/m??? Smoking Status Former BSA 1.94 m??? Physical Exam Constitutional: Appearance: She is well-developed. She is obese. She is not ill-ap (more content not included)... [facility] Progress note 04-05-2023 Note Date & Type Note Facility 04-05-2023 Note [facility] Subjective Ebony Medley is a 63 [...] swelling. Cervical back (more content not included)... [facility] Clinical Note 10-07-2022 Note Date & Type [...] good condition. CC: Nola Ramirez M.D. [facility] Clinical Note 09-02-2022 Note Date & Type [...] Allergies Social Hi (more content not included)... [facility] Comment on above: Result Comment: Elec tronically Signed By: PORTIA LEHMAN, Ganga Valencia\Date and Time Signed: 09/02/22 15:31 EDT Evaluation + Plan note Note Date & Type Note Facility Evaluation + Plan note No data available for this section [facility] Discharge instructions Note Date & Type Note Facility Hospital Discharge instructions No data available for this section [facility] [place] Progress note Note Date & Type Note Facility Progress note No data available for this section [facility] [place] Summary Purpose Family History No Family History Records FoundNo Family History Records FoundNo Family History Records FoundNo Family History Records FoundNo Family History Records Found Advance Directives No Advanced Directives Records FoundNo Advanced Directives Records FoundNo Advanced Directives Records FoundNo Advanced Directives Records FoundNo Advanced Directives Records Found Additional Source Comments INFORMATION SOURCE (unrecogn ized section and content) DATE CREATED AUTHOR 07/31/2022 [facility] DATE CREATED AUTHOR AUTHOR'S ORGANIZ ATION 10/14/2022 [facility] DATE CREATED AUTHOR AUTHOR'S ORGANIZ ATION 10/22/2022 [facility] DATE CREATED AUTHOR AUTHOR'S ORGANIZ ATION 12/16/2023 [facility] DATE CREATED AUTHOR AUTHOR'S DWIGHT ATJAVI 12/22/2023 [facility] Patient Care team informyeseniao n (unrecognized section and content) Personnel Name: Nola Ramirez MD Address: Address: [address] [place] [address] Name: Toya Finish FilerFlorence Personnel Name: Nola Ramirez MD Address: Address: [address] [place] [address] Name: Toya Finish FilerFlorence FOR RECORDS PERTAINING TO PATIENTS WHO ARE [...] BE BASED ON THE PRIMARY CLINICAL RECORDS. [employer] provides no warranty or guarantee of the accuracy or completeness of information in this document.
== END 2024-01-03 10:02 | disposition home or self-care (01) ==
LOC: LAB 10:02
PROVIDERS: PCP Family Medicine
DX: Z79.899 Other long term (current) drug therapy (principal)
CPT/HCPCS: 36415; 80178

== ENCOUNTER 2024-06-27 08:10 | Outpatient (OUT) | payer MEDICARE, SELFPAY ==
--- OUTSIDE RECORDS SUMMARY | 2024-06-27 08:28 | XMS_ITS | CCD ---
Author Organization [facility] Care Team Providers Care Mailroom Supervisor Name Role Phone Nola Ramirez Primary Care Physician Unavailab Nolan Ron Attending Physician Unavailable NOLA RAMIREZ Referring Unavailable NOLA RAMIREZ Primary Care Unavailable JESSIE ARNETT V Attending Unavailable JESSIE ARNETT V Admitting Unavailable Nola Ramirez Primary Care Physician [phone] Florence Pittman Unavailable Unavailable JAMES, DR VACA [...] ANTONY Attending Unavailable KINJAL, ANTONY Admitting Unavailable KINJALANTONY Consulting Unavailable MISC, DR ARREGUIN Consulting Unavailable [...] Unavailable NILL, DR SCHULER Admitting Unavailable RAVINDRABIJAN Consulting Unavailable KUCHIPUDI, MARK Consulting Unavailable JAMES, DR VACA Consulting Unavailable JAMES, DR VACA Primary Care Unavailable JAMES, DR VACA Attending Unavailable HORamses, DR VACA Admitting Unavailable Zieber, DR Valenzuela Consulting Unavailable JAMES, DR VACA Primary Care Unavailable SAMSA, GAGAN Attending Unavailable SAMSA, GAGAN Admitting Unavailable SAMSA, GAGAN Consulting Unavailable MOUKALAURA, DR ROMAN Consulting Unavailable JAMES, DR VACA Primary Care Unavailable MOUKALAURA, DR ROMAN Attending Unavailable MOUKARBSHERRI, DR ROMAN Admitting Unavailable WEST, DR CONSUELO [...] Attending Unavailable NILL, Ganga Salgado Attending Unavailable MOUKALAURA, JESSIE Attending Unavailable MOUKARBEL, JESSIE Attending Unavailable Dereck Walker Attending Unavailab Dereck Maldonado Admitting Unavailab Nola De La Fuente Primary Care Unavailable Allergies Allergy Classification Reported Allergen(s) Allergy Type Date of Onset Reaction(s) Facility (1 source) 59857,00 Drug allergy (disorder) [address] [facility] Repository (1 source) oxyCODONE; Translations: [OxyCODONE Hydrochloride] Drug Allergy [facility] Repository (1 source) No Known Medication Allergies; Translations: [No Known Medication Allergies] Propensity to adverse reactions (disorder) [facility] Repository Medications Current Medications Medication Drug Class(es) [...] 300 mg by mouth once aarti y Willow Carbonate 300 MG Oral Daily June 13, 2019 Active Start: 06-13-2019 take 600 mg by mouth at bedtim e Willow Carbonate 600 MG Oral Bedtime June 13, 2019 Active Start: 06-01-2019 End: 06-13-2019 take 300 mg by mouth at bedtime Willow Carbonate 300 MG Oral Bedtime June 01, 2019 June 13, 2019 Discontinued Start: 08-15-2018 End: 06-01-2019 take 150 mg by mouth at bedtime Willow Carbonate 150 MG Oral Bedtime February 27, [...] evening Simvastatin 20 MG Oral Every evening August 15, 2018 February 27, 2019 Discontinued [...] 2 02-02-2014 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 Family History Problem Relation Age of Onset Hypertension Mother Hypertension Father Family Status - Relation Status Age at Mother Father Level of Service:00637 MT OFFICE/OUTPATIENT ESTABLISHED MOD MDM 30 MIN Normal [facility] Office Visiton 04-05-2023 Follow-up visit [id number] Julia Medley gloria 1960 F Date Provider Department Center 04/05/2023 KeithJESSIE ARNETT [facility]AL [facility] Family History Problem Relation Age of Onset Hypertension Mother Hypertension Father Family Status - Relation Status Age at Mother Father Level of Service:88381 MT OFFICE/OUTPATIENT ESTABLISHED MOD MDM 30-39 MIN Reason for Visit and Comments: Shortness of Breath [308221] Hyperlipidemia [182] Normal [facility] General Surgery Office/Clini c Noteon 10-21-2022 General [...] 2: Mother. Hypertension: Mother and Father. Normal [facility] Comment on above: Result Comment: Elec tronically Signed By: PORTIA LEHMAN, Ganga Valencia\Date and Time Signed: 10/21/22 15:25 EST Operative Reporton 2 Operative Report [id number]#1.00CD:127 [facility] Operative Reporton 2 Operative Report [id number]#1.00CD:127 [facility] Pathology Noteon 10-09-2022 Pathology Note [id number]#1.00CD:127 [facility] Lab Reportson 10-05-2022 Lab Reports [id number]#1.00CD:127 [facility] Covid-19 PCR (CVDTB)on 09-22 SARS-CoV-2 (COVID-19) RNA ISABEL+probe Ql (Unsp spec) Not detected Normal NOT DETECTED [facility] Comment on above: Result Comment: This test is not yet approved or cleared by the [place] FDA. When there are no FDA-approved or cleared tests available, and other criteria are met, FDA can make tests available under an emergency access mechanism called an Emergency Use Authorization (EUA). The EUA for this test is supported by the [place] of Health and Human Service's (HHS's) declaration [...] consistent with SARS-CoV-2. Performed By: #### C TB #### [facility] Laboratory [address] [address] [address] Osmar Cox Consent for Procedure/Surger yon 09-03-2022 Consent for Procedure/Surgery [id number]#1.00CD:127 Normal [facility] Ambulatory Visit Summaryon 1 Ambulatory Visit Summary [...] of Clostridium difficile infection Memory loss Normal [facility] Correspo ndenceon 08-19-2022 Outside [facility] Correspondence [id number]#1.00CD:127 Normal [facility] RAD - CT Reporton 08-19-2022 RAD - CT Report [id number]#1.00CD:127 Normal [facility] RAD - MISCon 08-19-2022 RAD - MISC [id number]#1.00CD:127 Normal [facility] Physician Referralon 022 Physician Referral [id number]#1.00CD:127 Normal [facility] Covid-19 PCR (CVDTB)on 07-24 SARS-CoV-2 (COVID-19) RNA ISABEL+probe Ql (Unsp spec) Not detected Normal NOT DETECTED [facility] Comment on above: Result Comment: This test is not yet approved or cleared by the [place] FDA. When there are no FDA-approved or cleared tests available, and other criteria are met, FDA can make tests available under an emergency access mechanism called an Emergency Use Authorization (EUA). The EUA for this test is supported by the [place] of Health and Human Service's (HHS's) declaration [...] consistent with SARS-CoV-2. Performed By: #### C [facility] #### [facility] Laboratory [address] [place] [address] Dr. Osmar Cox XR MODIFIED BARIUM SWALLOWon [...] NICOLAS KIRK Date: 2022-08-06 15:18 Normal [facility] Cardiovascular Lab Reporton 07-29-2022 Cardiovascular Lab Report [facility] Patient Name: [facility] MR #: [id number] Physician: Jessie Rao M.D. Medicine Service Date: 07/28/2022 Division of Birthdate: 1960 Cardiology Room #: [facility]ovascular [facility] [address] [place], [place] [address] Cardiovascular Laboratory Report INDICATIONS: The patient is [...] signed informed consent. She was brought to analytical laboratory technician in a fasting state. The right neck area was prepped and draped in usual fashion. Micropuncture technique and ultrasound guidance were used for access in the right internal jugular vein. A 6-Chilean x 11 cm sheath was placed. A 6-Chilean Suarez catheter was used for right heart catheterization and measurement of pressures and calculation of cardiac output using the estimated Karina method. Suarez catheter was removed. Micropuncture technique and ultrasound guidance were used for access in the right radial artery. A 5-Chilean x 11 cm slender sheath was advanced. Verapamil was given through the sheath and heparin was administered intravenously. Bilateral selective coronary angiography was then performed using 5-Chilean JL 3.5 and JR5 diagnostic catheters. Catheters [...] Arnett M.D. Date Trans: 07/29/2022 03:31 A/gladys [id number] cc: Nola Ramirez M.D. [address] [place] [address] [facility] CBC AUTO DIFFon 07-24-2022 BASO # 0.1 103/ul Normal 0.0-0.1 [facility] Comment on above: Performed By: #### C BC #### [facility] [address] [address] [address] Osmar Cox Basophils/100 WBC (Bld) 0.9 % Normal 0.2-2.0 [facility] Comment on above: Performed By: #### C BC #### [facility] [address] [address] [address] Osmar Cox EO # 0.0 103/ul Normal 0.0-0.7 [facility] Comment on above: Performed By: #### C BC #### [facility] Laboratory [address] [place] [address] Dr. Osmar Cox Eosinophils/100 WBC (Bld) 0.1 % Critically low 0.9-7.0 [facility] Comment on above: Performed By: #### C BC #### [facility] [address] [place] [address] Dr. Osmar Cox Erythrocyte distribution width (RBC) [Ratio] 15.4 % Critically high 11.0-15.0 [facility] Comment on above: Performed By: #### C BC #### [facility] [address] [place] [address] Dr. Osmar Cox Hematocrit (Bld) [Volume fraction] 40.7 % Normal 36.0-48.0 [facility] Comment on above: Performed By: #### C BC #### [facility] [address] [place] [address] Dr. Osmar Cox Hemoglobin (Bld) [Mass/Vol] 12.5 g/dL Normal 12.0-16.0 [facility] Comment on above: Performed By: #### C BC #### [facility] [address] [place] [address] Dr. Osmar Cox IG # 0.08 10e3/ul Critically high 0.00-0.03 The [facility] Comment on above: Performed By: #### C BC #### [facility] [address] [place] [address] Dr. Osmar Cox IG % 0.7 % Critically high 0.0-0.5 [facility] [place] [facility] Comment on above: Performed By: #### C BC #### [facility] [address] [place] [address] Dr. Osmar Cox LYMPH # 2.6 103/ul Normal 1.2-3.8 [facility] Comment on above: Performed By: #### C BC #### [facility] [address] [address] [address] sOmar Cox Lymphocytes/100 WBC (Bld) 22.8 % Normal 20.5-60.0 [facility] Comment on above: Performed By: #### C BC #### [facility] [address] [place] [address] Dr. Osmar Cox MANUAL DIFF REQ NO Normal [facility] [place] [facility] Comment on above: Performed By: #### C BC #### [facility] [address] [address] [address] Osmar Cox MCH (RBC) [Entitic mass] 24.4 pg Critically low 26.7-34.0 [facility] Comment on above: Performed By: #### C BC #### [facility] [address] [place] [address] Dr. Osmar Cox MCHC (RBC) [Mass/Vol] 30.7 g/dL Normal 29.9-35.2 [facility] Comment on above: Performed By: #### C BC #### [facility] [address] [place] [address] Dr. Osmar Cox MCV (RBC) [Entitic vol] 79.3 fL Critically low 81.0-99.0 [facility] Comment on above: Performed By: #### C BC #### [facility] [address] [place] [address] Dr. Osmar Cox MONO # 1.0 103/ul Critically high 0.3-0.8 [facility] [place] [facility] Comment on above: Performed By: #### C BC #### [facility] [address] [place] [address] Dr. Osmar Cox Monocytes/100 WBC (Bld) 8.9 % Normal 1.7-12.0 [facility] Comment on above: Performed By: #### C BC #### [facility] [address] [place] [address] Dr. Osmar Cox NEUT # 7.6 103/ul Critically high 1.4-6.5 [facility] [place] [facility] Comment on above: Performed By: #### C BC #### [facility] [address] [place] [address] Dr. Osmar Cox Neutrophils/100 WBC (Bld) 66.6 % Normal 43.0-75.0 [facility] Comment on above: Performed By: #### C BC #### [facility] [address] [place] [address] Dr. Osmar Cox Platelet mean volume (Bld) [Entitic vol] 8.8 fL Critically low 9.5-13.5 [facility] Comment on above: Performed By: #### C BC #### [facility] [address] [place] [address] Dr. Osmar Cox PLT 438 103/ul Normal 150-450 [facility] Comment on above: Performed By: #### C BC #### [facility] [address] [place] [address] Dr. Osmar Cox RBC 5.13 106/ul Normal 4.20-5.40 [facility] Comment on above: Performed By: #### C BC #### [facility] [address] [place] [address] Dr. Osmar Cox WBC 11.3 103/ul Critically high 4.0-11.[address] [facility] Comment on above: Performed By: #### C BC #### [facility] [address] [place] [address] Dr. Osmar Cox [facility] SARS-CoV-2 (COVID-19) RNA ISABEL+probe Ql (Unsp spec) Not detected Normal NOT DETECTED [facility] Comment on above: Result Comment: This test is not yet approved or cleared by the [place] FDA. When there are no FDA-approved or cleared tests available, and other criteria are met, FDA can make tests available under an emergency access mechanism called an Emergency Use Authorization (EUA). The EUA for this test is supported by the [place] of Health and Human Service's (HHS's) declaration [...] SARS-CoV-2. Performed By: #### C VDT[facility] #### [facility] [address] [place], [place] [address] CHEST HI RESOLUTIONon [...] CONSUELO TELLES Date: 2022-07-20 11:51 Normal [facility] BNPon 07-10-2022 Natriuretic peptide B (Bld) [Mass/Vol] 85.0 pg/mL Normal <=900.0 [facility] Comment on above: Performed By: #### B NURSE TRANSITION, BMP, LIVER, LIPID ####[facility] [address] [place], [place] [address]Dr. Osmar Cox LIPID PROFILEon 07-10-2022 CHOL-HDL RATIO NORM SEE BELOW Normal [facility] Comment on above: Result Comment: 3.3 - 4.4 LOW RISK 4.4 - 7.1 AVERAGE RISK 7.1 - 11.0 MODERATE RISK >11.0 HIGH RISK Performed By: #### B NURSE TRANSITION, BMP, LIVER, LIPID ####[facility] [address] [id number]. Osmar Cox Cholesterol [Mass/Vol] 229 mg/dL Critically high <=200 [facility] Comment on above: Performed By: #### B NURSE TRANSITION, BMP, LIVER, LIPID ####[facility] [address] [id number]. Osmar Cox Cholesterol in HDL [Mass/Vol] 51 mg/dL Normal 40-60 [facility] Comment on above: Performed By: #### B NURSE TRANSITION, BMP, LIVER, LIPID ####[facility] [address] [address]Dr. Osmar Cox Cholesterol in LDL [Mass/Vol] 130.2 mg/dL Normal [facility] Comment on above: Performed By: #### B NURSE TRANSITION, BMP, LIVER, LIPID ####[facility] [address] [address]Dr. Osmar Cox Cholesterol.total/ Cholesterol in HDL [Mass ratio] 4.5 {ratio} Normal [facility] Comment on above: Performed By: #### B NURSE TRANSITION, BMP, LIVER, LIPID ####[facility] [address] [address]Dr. Osmar Cox HDL NORMAL > or = 60 mg/dl - LO W CARDIOVASCULAR RISK <40 mg/dl - HIGH CARDIOVASCULAR RISK Normal [facility] Comment on above: Performed By: #### B NURSE TRANSITION, BMP, LIVER, LIPID ####[facility] [address] [address]Dr. Osmar Cox LDL CALC NORMAL SEE BELOW Normal [facility] [place] [facility] Comment on above: Result Comment: <100 mg/dl OPTIMAL 100 - 129 mg/dl NEAR OR ABOVE OPTIMAL 130 - 159 mg/dl BORDERLINE HIGH 160 - 189 mg/dl HIGH >190 mg/dl VERY HIGH Performed By: #### B NURSE TRANSITION, BMP, LIVER, LIPID ####[facility] [address] [address]Dr. Osmar Cox Triglyceride [Mass/Vol] 239 mg/dL Critically high <=150 [facility] Comment on above: Performed By: #### B NURSE TRANSITION, BMP, LIVER, LIPID ####[facility] [address] [address]Dr. Lindakenyon Kenny VLDL CALC 47.8 mg/dL Normal [facility] Comment on above: Performed By: #### B NURSE TRANSITION, BMP, LIVER, LIPID ####[facility] [address] [address]Dr. Lindakenyon Kenny LIVER PROFILEon 07-10-2022 Albumin [Mass/Vol] 3.5 g/dL Normal 3.4-5.0 [facility] Comment on above: Performed By: #### B NURSE TRANSITION, BMP, LIVER, LIPID ####[facility] [address] [address]Dr. Osmar Cox Albumin/Globulin [Mass ratio] 1.0 {ratio} Normal [facility] Comment on above: Performed By: #### B NURSE TRANSITION, BMP, LIVER, LIPID ####[facility] [address] [address]Dr. Osmar Cox ALP [Catalytic activity/Vol] 183 U/L Critically high 46-116 [facility] Comment on above: Performed By: #### B NURSE TRANSITION, BMP, LIVER, LIPID ####[facility] [address] [place], [place] [address]Dr. Osmar Cox ALT [Catalytic activity/Vol] 32 U/L Normal 14-59 [facility] Comment on above: Performed By: #### B NURSE TRANSITION, BMP, LIVER, LIPID ####[facility] [address] [address]Dr. Osmar Cox AST [Catalytic activity/Vol] 17 U/L Normal 15-37 [facility] Comment on above: Performed By: #### B NURSE TRANSITION, BMP, LIVER, LIPID ####[facility] [address] [address]Dr. Osmar Cox BILI, CONJUGATED 0.1 mg/dL Normal 0.0-0.2 [facility] Comment on above: Performed By: #### B NURSE TRANSITION, BMP, LIVER, LIPID ####[facility] [address] [address]Dr. Osmar Cox Bilirubin [Mass/Vol] 0.2 mg/dL Normal 0.2-1.0 [facility] Comment on above: Performed By: #### B NURSE TRANSITION, BMP, LIVER, LIPID ####[facility] [address] [address]Dr. Osmar Cox Globulin (S) [Mass/Vol] 3.5 g/dL Normal [facility] Comment on above: Performed By: #### B NURSE TRANSITION, BMP, LIVER, LIPID ####[facility] [address] [address]Dr. Osmar Cox Protein [Mass/Vol] 7.0 g/dL Normal 6.4-8.2 [facility] Comment on above: Performed By: #### B NURSE TRANSITION, BMP, LIVER, LIPID ####[facility] [address] [address]Dr. Osmar Cox PROF CHEM 8 (BAS METB)on Anion gap [Moles/Vol] 11.6 mmol/L Normal [facility] Comment on above: Performed By: #### B NURSE TRANSITION, BMP, LIVER, LIPID #### [facility] [address] [address] [address] Osmar Cox Calcium [Mass/Vol] 8.9 mg/dL Normal 8.5-10.1 [facility] Comment on above: Performed By: #### B NURSE TRANSITION, BMP, LIVER, LIPID #### [facility] [address] [address] [address] Osmar Cox Chloride [Moles/Vol] 104 mmol/L Normal 98-107 [facility] Comment on above: Performed By: #### B NURSE TRANSITION, BMP, LIVER, LIPID #### [facility] [address] [address] [address] Osmar Cox CO2 [Moles/Vol] 26.0 mmol/L Normal 21.0-32.0 [facility] Comment on above: Performed By: #### B NURSE TRANSITION, BMP, LIVER, LIPID #### [facility] [address] [address] [address] Osmar Cox Creatinine [Mass/Vol] 0.80 mg/dL Normal 0.55-1.02 [facility] Comment on above: Performed By: #### B NURSE TRANSITION, BMP, LIVER, LIPID #### [facility] [address] [address] [address] Osmar Cox EGFR-AF ANDORRAN >60 Normal >=60 [facility] Comment on above: Performed By: #### B NURSE TRANSITION, BMP, LIVER, LIPID #### [facility] [address] [address] [address] Osmar Cox EGFR-NON AF ANDORRAN >60 Normal >=60 [facility] Comment on above: Performed By: #### B NURSE TRANSITION, BMP, LIVER, LIPID #### [facility] [address] [place] [address] Dr. Osmar Cox Glucose [Mass/Vol] 100 mg/dL Normal 74-106 [facility] Comment on above: Performed By: #### B NURSE TRANSITION, BMP, LIVER, LIPID #### [facility] [address] [place] [address] Dr. Osmar Cox Potassium [Moles/Vol] 4.6 mmol/L Normal 3.5-5.1 [facility] Comment on above: Performed By: #### B NURSE TRANSITION, BMP, LIVER, LIPID #### [facility] [address] [place] [address] Dr. Osmar Cox Sodium [Moles/Vol] 137 mmol/L Normal 136-145 [facility] Comment on above: Performed By: #### B NURSE TRANSITION, BMP, LIVER, LIPID #### [facility] [address] [place] [address] Dr. Osmar Cox Urea nitrogen [Mass/Vol] 20.0 mg/dL Critically high 7.0-18.0 [facility] Comment on above: Performed By: #### B NURSE TRANSITION, BMP, LIVER, LIPID #### [facility] [address] [place] [address] Dr. Osmar Cox Urea nitrogen/Creatinin e [Mass ratio] 25.0 mg/mg Normal [facility] Comment on above: Performed By: #### B NURSE TRANSITION, BMP, LIVER, LIPID #### [facility] [address] [place], [place] [address] Dr. Osmar Cox XR CHEST 2 Von [...] by: CONSUELO TELLES Date: 2022-06-04 19:26 Normal [facility] HEMOGLOBINon 06-02-2022 Hemoglobin (Bld) [Mass/Vol] 12.1 g/dL Normal 12.0-16.0 [facility] Comment on above: Performed By: #### H GB #### [facility] [address] [address] [address] Osmar Cox XR CHEST 2 Von [...] CONSUELO TELLES Date: 2022-06-02 19:19 Normal [facility] NM STRESS/REST MULTIon 05-06 NM STRESS/REST MULTI Patient: JASMYNE EBONY EarlyKate Exam Date: 05/06/2022 : 1960 Gender:F Ordering : DR NOLA RAMIREZ . Admission #: [id number] Family : Order #: [id number] CLICK HERE TO VIEW EXAM RADIOLOGY REPORT [...] Kirk M.D. on 05/07/2022 at 11:04 Normal [facility] ECHOCARDIO M/2D COMPLETEon 0 04-29-2022 ECHOCARDIO M/2D COMPLETE Patient: EBONY MEDLEY Exam Date: 04/29/2022 : 1960 Gender:F Ordering : DR NOLA RAMIREZ . Admission #: [id number] Family : Order #: [id number] CLICK HERE TO VIEW EXAM ECHOCARDIOGRAM REPORT [...] M.D. on 04/30/2022 at 20:09 Normal The [facility] LITHIUMon 03-20-2022 Willow (Eskalith(R)), Serum 0.6 mmol/L Normal 0.5-1.2 [facility] Comment on above: Result Comment: Plas ma concentration of 0.5 - 0.8 mmol/L are advised for long-term use; concentrations of up to 1.2 mmol/L may be necessary during acute treatment. Detection Limit = 0.1 <0.1 indicates None Detected Performed By: #### L ITHIUM ####[facility] [address] [place] [id number]. Osmar Cox LIPID PROFILEon 03-19-2022 CHOL-HDL RATIO NORM SEE BELOW Normal [facility] Comment on above: Result Comment: 3.3 - 4.4 LOW RISK 4.4 - 7.1 AVERAGE RISK 7.1 - 11.0 MODERATE RISK >11.0 HIGH RISK Performed By: #### T SH, T4, LIPID, CMP ####[facility] [address] [place] [address]Dr. Osmar Cox Cholesterol [Mass/Vol] 269 mg/dL Critically high <=200 [facility] Comment on above: Performed By: #### T SH, T4, LIPID, CMP ####[facility] [address] [place], [place] [address]Dr. Osmar Cox Cholesterol in HDL [Mass/Vol] 48 mg/dL Normal 40-60 The [facility] Comment on above: Performed By: #### T SH, T4, LIPID, CMP ####[facility] [address] [place], [place] [address]Dr. Osmar Cox Cholesterol in LDL [Mass/Vol] 145.8 mg/dL Normal [facility] Comment on above: Performed By: #### T SH, T4, LIPID, CMP ####[facility] [address] [place], [place] [address]Dr. Osmar Cox Cholesterol.total/ Cholesterol in HDL [Mass ratio] 5.6 {ratio} Normal [facility] Comment on above: Performed By: #### T SH, T4, LIPID, CMP ####[facility] [address] [place] [id number]. Lindalan Cox HDL NORMAL > or = 60 mg/dl - LO W CARDIOVASCULAR RISK <40 mg/dl - HIGH CARDIOVASCULAR RISK Normal The [facility] Comment on above: Performed By: #### T SH, T4, LIPID, CMP ####[facility] [address] [place] [address]Dr. Osmar Cox LDL CALC NORMAL SEE BELOW Normal The [facility] Comment on above: Result Comment: <100 mg/dl OPTIMAL 100 - 129 mg/dl NEAR OR ABOVE OPTIMAL 130 - 159 mg/dl BORDERLINE HIGH 160 - 189 mg/dl HIGH >190 mg/dl VERY HIGH Performed By: #### T SH, T4, LIPID, CMP ####[facility] [address] [place] [address]Dr. Osmar Cox Triglyceride [Mass/Vol] 376 mg/dL Critically high <=150 [facility] Comment on above: Performed By: #### T SH, T4, LIPID, CMP ####[facility] [address] [place] [address]Dr. Osmar Cox VLDL CALC 75.2 mg/dL Normal [facility] Comment on above: Performed By: #### T SH, T4, LIPID, CMP ####[facility] [address] [place] [address]Dr. Osmar Cox PROF 14(COMP METB)on 022 Albumin [Mass/Vol] 3.4 g/dL Normal 3.4-5.0 [facility] Comment on above: Performed By: #### T SH, T4, LIPID, CMP ####[facility] [address] [place] [address]Dr. Osmar Cox Albumin/Globulin [Mass ratio] 1.0 {ratio} Normal [facility] Comment on above: Performed By: #### T SH, T4, LIPID, CMP ####[facility] [address] [place] [address]Dr. Osmar Cox ALP [Catalytic activity/Vol] 118 U/L Critically high 46-116 The [facility] Comment on above: Performed By: #### T SH, T4, LIPID, CMP ####[facility] [address] [place] [address]Dr. Osmar Cox ALT [Catalytic activity/Vol] 17 U/L Normal 14-59 The [facility] Comment on above: Performed By: #### T SH, T4, LIPID, CMP ####[facility] [address] [place] [address]Dr. Osmar Cox Anion gap [Moles/Vol] 11.3 mmol/L Normal [facility] Comment on above: Performed By: #### T SH, T4, LIPID, CMP ####[facility] [address] [place] [address]Dr. Osmar Cox AST [Catalytic activity/Vol] 11 U/L Critically low 15-37 The [facility] Comment on above: Performed By: #### T SH, T4, LIPID, CMP ####[facility] [address] [place] [address]Dr. Osmar Cox Bilirubin [Mass/Vol] 0.2 mg/dL Normal 0.2-1.0 [facility] Comment on above: Performed By: #### T SH, T4, LIPID, CMP ####[facility] [address] [place] [address]Dr. Osmar Cox Calcium [Mass/Vol] 8.7 mg/dL Normal 8.5-10.1 [facility] Comment on above: Performed By: #### T SH, T4, LIPID, CMP ####[facility] [address] [place], [place] [address]Dr. Osmar Cox Chloride [Moles/Vol] 106 mmol/L Normal 98-107 The [facility] Comment on above: Performed By: #### T SH, T4, LIPID, CMP ####[facility] [address] [place], [place] [address]Dr. Osmar Cox CO2 [Moles/Vol] 23.6 mmol/L Normal 21.0-32.[address] [facility] Comment on above: Performed By: #### T SH, T4, LIPID, CMP ####[facility] [address] [place], [place] [address]Dr. Osmar Cox Creatinine [Mass/Vol] 0.86 mg/dL Normal 0.55-1.02 The [facility] Comment on above: Performed By: #### T SH, T4, LIPID, CMP ####[facility] [address] [place], [place] [address]Dr. Osmar Cox EGFR-AF ANDORRAN >=60 Normal >=[address] [facility] Comment on above: Performed By: #### T SH, T4, LIPID, CMP ####[facility] [address] [place], [place] [address]Dr. Osmar Cox EGFR-NON AF ANDORRAN >=60 Normal >=60 The [facility] Comment on above: Performed By: #### T SH, T4, LIPID, CMP ####[facility] [address] [place] [address]Dr. Osmar Cox Globulin (S) [Mass/Vol] 3.3 g/dL Normal [facility] Comment on above: Performed By: #### T SH, T4, LIPID, CMP ####[facility] [address] [place] [address]Dr. Osmar Cox Glucose [Mass/Vol] 104 mg/dL Normal 74-106 The [facility] Comment on above: Performed By: #### T SH, T4, LIPID, CMP ####[facility] [address] [place], [place] [address]Dr. Osmar Cox Potassium [Moles/Vol] 4.9 mmol/L Normal 3.5-5.1 The [facility] Comment on above: Performed By: #### T SH, T4, LIPID, CMP ####[facility] [address] [place], [place] [address]Dr. Osmar Cox Protein [Mass/Vol] 6.7 g/dL Normal 6.1-8.2 The [facility] Comment on above: Performed By: #### T SH, T4, LIPID, CMP ####[facility] [address] [place], [place] [address]Dr. Osmar Cox Sodium [Moles/Vol] 136 mmol/L Normal 136-145 The [facility] Comment on above: Performed By: #### T SH, T4, LIPID, CMP ####[facility] [address] [place], [place] [address]Dr. Osmar Cox Urea nitrogen [Mass/Vol] 25.0 mg/dL Critically high 7.0-18.0 The [facility] Comment on above: Performed By: #### T SH, T4, LIPID, CMP ####[facility] [address] [place], [place] [address]Dr. Osmar Cox Urea nitrogen/Creatinin e [Mass ratio] 29.1 mg/mg Normal [facility] Comment on above: Performed By: #### T SH, T4, LIPID, CMP ####[facility] [address] [place] [id number]. Osmar Cox T4on 03-19-2022 T4 [Mass/Vol] 7.60 ug/dL Normal 4.80-13.90 [facility] Comment on above: Performed By: #### T SH, T4, LIPID, CMP ####[facility] [address] [place] [id number]. Osmar Cox TSHon 03-19-2022 TSH 1.427 uIU/mL Normal 0.470-4.680 The [facility] Comment on above: Performed By: #### T SH, T4, LIPID, CMP ####[facility] [address] [place] [address]Dr. Osmar Cox TSH RANGE SEE BELOW Normal [facility] Comment on above: Result Comment: <0.3 4 UIU/ml HYPERTHYROID 0.34-5.60 UIU/ml EUTHYROID >5.60 UIU/ml HYPOTHYROID Performed By: #### T SH, T4, LIPID, CMP ####[facility] [address] [place] [id number]. Osmar Cox Laboratory Studieson 018 Albumin [Mass/Vol] 3.8 g/dL 3.2-5.5 [facility] Albumin/Globulin [Mass ratio] 1.5 {ratio} [facility] ALP [Catalytic activity/Vol] 75 U/L 32-92 [facility] ALT No additional P-5'-P [Catalytic activity/Vol] 16 U/L 10-60 [facility] AST [Catalytic activity/Vol] 18 U/L 10-42 [facility] Basophils (Bld) [#/Vol] 0.1 10*3/uL 0.0-0.2 [facility] Basophils/100 WBC (Bld) 1.0 % [facility] Bilirubin [Mass/Vol] 0.5 mg/dL 0.3-1.2 [facility] Calcium [Mass/Vol] 9.2 mg/dL 8.2-10.2 [facility] Carbamazepine [Mass/Vol] < 2.0 ug/mL Low 4.0-12.0 [facility] Chloride [Moles/Vol] 103 mmol/L 95-114 [facility] CK [Catalytic activity/Vol] 46 U/L 22-269 [facility] CK.MB [Mass/Vol] 1.0 ng/mL 0.6-6.3 [facility] CK.MB Calc [Catalytic fraction] 2.1 0.00-2.50 [facility] CO2 [Moles/Vol] 24.9 mmol/L 22.0-30.0 [facility] Creatinine [Mass/Vol] 0.58 mg/dL 0.44-1.03 [facility] Eosinophils (Bld) [#/Vol] 0.2 10*3/uL 0.0-0.45 [facility] Eosinophils/100 WBC (Bld) 3.1 % [facility] Erythrocyte distribution width (RBC) [Ratio] 13.5 % 11.9-15.3 [facility] Ethanol [Mass/Vol] mg/dL [facility] Ethanol [Mass/Vol] TNP [facility] Comment on above: Test not performed GFR/1.73 sq M predicted among blacks MDRD (S/P/Bld) [Vol rate/Area] mL/min/{1.73_m2} [facility] Comment on above: GFR estimated refere nce range: According to KDOQI guidelines, <60 ml/min/1.73m2 is sufficient to diagnose a patient with chronic kidney disease. GFR/1.73 sq M predicted among non-blacks MDRD (S/P/Bld) [Vol rate/Area] mL/min/{1.73_m2} [facility] Globulin (S) [Mass/Vol] 2.6 g/dL [facility] Glucose [Mass/Vol] 96 mg/dL 70-100 [facility] Comment on above: ADA recommended refe rence range Random Glucose Reference Range is dependent on time and content of last meal. Glucose of more than 200 mg/dL in a nonstressed, ambulatory subject supports the diagnosis of Diabetes Mellitus. Hematocrit (Bld) [Volume fraction] 38.7 % 34.0-46.4 [facility] Hemoglobin (Bld) [Mass/Vol] 12.8 g/dL 11.8-15.4 [facility] Lymphocytes (Bld) [#/Vol] 2.1 10*3/uL 1.00-4.8 [facility] Lymphocytes/100 WBC (Bld) 33.0 % [facility] MCH (RBC) [Entitic mass] 28.3 pg 24.7-34.3 [facility] MCHC (RBC) [Mass/Vol] 33.1 g/dL 32.0-35.0 [facility] MCV (RBC) [Entitic vol] 85.4 fL 80-100 [facility] Monocytes (Bld) [#/Vol] 0.5 10*3/uL 0.0-0.8 [facility] Monocytes/100 WBC (Bld) 7.2 % [facility] Neutrophils (Bld) [#/Vol] 3.5 10*3/uL 1.8-7.7 [facility] Neutrophils/100 WBC (Bld) 55.7 % [facility] Creatinine Clearance (Chem 87.4588 [facility] Platelet mean volume (Bld) [Entitic vol] 6.9 fL 6.3-10.7 [facility] Platelets (Bld) [#/Vol] 270 10*3/uL 150-450 [facility] Potassium [Moles/Vol] 4.3 mmol/L 3.5-5.1 [facility] Protein [Mass/Vol] 6.4 g/dL 6.1-7.9 [facility] RBC (Bld) [#/Vol] 4.52 10*6/uL 3.60-5.00 [facility] Sodium [Moles/Vol] 136 mmol/L 136-146 [facility] Troponin I.cardiac [Mass/Vol] ng/mL 0-0.02 [facility] Comment on above: [place] Cut off value > or equal to 0.03 ng/mL in conjunction with clinical conditions of myocardial infarction. (www.escardio.org/guidelines) Urea nitrogen [Mass/Vol] 18 mg/dL 9-23 [facility] Valproate [Mass/Vol] 52.6 ug/mL 50.0-100.0 [facility] Comment on above: Last dose: - WBC (Bld) [#/Vol] 6.3 10*3/uL 3.8-11.6 [facility] Amphetamines Ql (U) Negative [facility] Barbiturates Ql (U) Negative [facility] Benzodiazepines Ql (U) Negative [facility] Bilirubin Ql (U) Negative [facility] Cannabinoids Screen Ql (U) Negative [facility] Comment on above: These are unconfirme d results and should not be used for legal purposes. Drug Cut-Off Concentration: AMPH 1000 ng/mL ALFREDO 200 ng/mL JAXON 200 ng/mL COCM 300 ng/mL OP 300 ng/mL PCP 25 ng/mL THC 20 ng/mL Clarity Refractometry automated (U) Clear [facility] Cocaine Ql (U) Negative [facility] Color (U) Yellow [facility] Glucose Auto test strip (U) [Mass/Vol] Normal mg/dL [facility] Hemoglobin Auto test strip Ql (U) Negative [facility] Ketones (U) [Mass/Vol] Negative [facility] Leukocyte esterase Auto test strip Ql (U) Negative [facility] Nitrite Ql (U) Negative [facility] Opiates Ql (U) Negative [facility] pH (U) 6.5 [pH] 5.0-9.0 [facility] Phencyclidine Ql (U) Negative [facility] Protein (U) [Mass/Vol] Negative [facility] Specific gravity (U) [Rel density] 1.018 1.001-1.030 [facility] Urobilinogen (U) [Mass/Vol] Normal mg/dL [facility] Vital Signs Date Time Vital Sign Value Performing Clinician Facility 09-02-2022 13:44-0400 Blood Pressure Location Ganga PEARCE [facility] 09-02-2022 13:44-0400 Diastolic blood pressure 82 mm[Hg] Ganga PEARCE [facility] 09-02-2022 13:44-0400 Heart rate 72 /min Ganga PEARCE [facility] [place] 09-02-2022 13:44-0400 Respiratory rate 16 /min Ganga ZUNIGAL General Surgery [place] 09-02-2022 13:44-0400 Systolic blood pressure 120 mm[Hg] Ganga PEARCE [facility] [place] 03-07-2019 15:00-0400 Body Temperature 97.8 [degF] [facility] 03-07-2019 15:00-0400 BP Diastolic 88 mm[Hg] [facility] 03-07-2019 15:00-0400 BP Systolic 158 mm[Hg] [facility] 03-07-2019 15:00-0400 Pulse (Heart Rate) 78 /min [facility] 03-07-2019 15:00-0400 Pulse Oximetry 95 % [facility] 03-07-2019 15:00-0400 Respiratory Rate 16 /min [facility] Body weight [facility] NEGATED: Highlighted row BMI (Body Mass Index) [facility] NEGATED: Highlighted row Height [facility] Encounters Encounter Date Encounter Type Care Provider Facility Start: 06-20-2024 ambulatory Dereck De La Rosa acility:[facility] Start: 12-15-2023 End: 12-15-2023 ambulatory [facility] Start: 04-05-2023 End: 04-05-2023 ambulatory [facility] Start: 10-21-2022 End: 10-22-2022 ambulatory Ganga PEARCE Facility:[facility] Start: 10-21-2022 End: 10-21-2022 Patient encounter procedure Ganga PEARCE General Surgery N[facility] [place] Start: 10-08-2022 Encounter for preprocedural laboratory examination DR GANGA PEARCE [facility] Start: 10-07-2022 End: 10-08-[address] GANGA PEARCE Facility:[facility] Start: 10-03-2022 End: 10-04-[address] GANGA PEARCE Facility:[facility] Start: 10-03-2022 End: 10-04-2022 Encounter for preprocedural laboratory examination DR GANGA PEARCE Facility:[facility] Start: 09-02-2022 End: 09-03-2022 ambulatory Ganga PEARCE Facility:[facility] Start: 09-02-2022 End: 09-02-2022 Patient encounter procedure Ganga PEARCE General Surgery [facility] Start: 08-11-2022 End: 08-11-[address] NOLA RAMIREZ Facility:[facility] Start: 08-06-2022 End: 08-07-[address] Nicolas Kirk Facility:[facility] Start: 07-28-2022 End: 07-29-2022 ambulatory NOLA RAMIREZ Facility:[facility] Start: 07-24-2022 End: 07-25-2022 ambulatory [...] 03-15-2019 End: 03-15-2019 Patient encounter procedure Nola Ramirez [facility] Start: 03-07-2019 End: 03-07-2019 [facility] Start: 02-01-2018 End: 02-01-2018 Emergency department patient visit Nola Ramirez [facility] Start: 06-07-2014 End: 06-12-2014 Evaluation and management of inpatient Nola ramses [facility] Start: 06-17-2011 End: 06-20-2011 Evaluation and management of inpatient Nola [facility] Start: 05-01-2011 End: 05-18-2011 Evaluation and management of inpatient Nola [facility] Start: 05-27-2010 End: 06-26-2010 Discharged Recurring Nola [facility] Start: 05-22-2010 End: 06-21-2010 [facility] Start: 04-22-2010 End: 05-21-2010 [facility] Start: 03-22-2010 End: 04-21-2010 [facility] Start: 02-20-2010 End: 03-21-2010 Discharged Recurring Nola [facility] Start: 01-20-2010 End: 02-19-2010 [facility] Start: 01-20-2010 End: 02-19-2010 [facility] Start: 01-16-2010 End: 01-19-2010 [facility] Start: 12-23-2009 End: 01-19-2010 Discharged Recurring Nola ramses [facility] Start: 11-23-2009 End: 12-22-2009 Discharged Recurring Nola Horamses [facility] Start: 11-22-2009 End: 01-20-2010 Discharged Recurring Nola ramses [facility] Start: 10-22-2009 End: 11-21-2009 Discharged Recurring Nola ramses [facility] Start: 10-15-2009 End: 11-22-2009 Discharged Recurring Nola ramses [facility] Start: 09-22-2009 End: 10-21-2009 Discharged Recurring Nola [facility] Start: 08-22-2009 End: 09-21-2009 Discharged Recurring Nola ramses [facility] Start: 08-06-2009 End: 08-21-2009 Discharged Recurring Nola [facility] Start: 07-02-2009 End: 07-22-2009 Discharged Recurring Nola ramses [facility] Start: 06-04-2009 End: 06-21-2009 Discharged Recurring Nola ramses [facility] Start: 04-22-2009 End: 05-21-2009 Discharged Recurring Nola [facility] Start: 03-22-2009 End: 04-21-2009 Discharged Recurring Nola [facility] Start: 02-20-2009 End: 03-21-2009 Discharged Recurring Nola [facility] Start: 02-10-2009 End: 02-10-2009 Emergency department patient visit Nola [facility] Start: 01-21-2009 End: 02-19-2009 Discharged Recurring Nola Hoy [facility] Start: 12-24-2008 End: 01-19-2009 Discharged Recurring Nola James [facility] Start: 11-23-2008 End: 12-22-2008 Discharged Recurring Nola ramses [facility] Start: 10-22-2008 End: 11-21-2008 Discharged Recurring Nola Hoy [facility] Start: 09-22-2008 End: 10-21-2008 Discharged Recurring Nola ramses [facility] Start: 08-22-2008 End: 09-21-2008 Discharged Recurring Nola ramses [facility] Start: 07-24-2008 End: 08-21-2008 Discharged Recurring Nola ramses [facility] Start: 07-02-2008 End: 07-05-2008 Evaluation and management of inpatient Nola ramses [facility] Start: 06-22-2008 End: 07-22-2008 Discharged Recurring Nola ramses [facility] Start: 06-05-2008 End: 06-14-2008 Evaluation and management of inpatient Nola ramses [facility] Start: 05-29-2008 End: 06-21-2008 Discharged Recurring Nola ramses [facility] Start: 04-24-2008 End: 05-21-2008 Discharged Recurring Nola ramses [facility] Start: 03-22-2008 End: 04-21-2008 Discharged Recurring Nola [facility] Start: 02-21-2008 End: 03-21-2008 Discharged Recurring Nola Horamses [facility] Start: 02-14-2008 End: 02-20-2008 Discharged Recurring Nola Ramirez [facility] Start: 12-23-2007 End: 01-20-2008 Discharged Recurring Nola Ramirez [facility] Start: 12-20-2007 End: 12-23-2007 Evaluation and management of inpatient Nola Ramirez [facility] Start: 11-22-2007 End: 12-22-2007 Discharged Recurring Nola ramsse [facility] Start: 10-22-2007 End: 11-21-2007 Discharged Recurring Nola Hoy [facility] Start: 09-22-2007 End: 10-21-2007 Discharged Recurring Nola Ramirez [facility] Start: 08-22-2007 End: 09-21-2007 Discharged Recurring Nola Ramirez [facility] Start: 07-23-2007 End: 08-21-2007 Discharged Recurring Nola Hoy [facility] Start: 06-22-2007 End: 07-22-2007 Discharged Recurring Nola ramses [facility] Start: 05-22-2007 End: 06-21-2007 Discharged Recurring Nola ramses [facility] Start: 04-28-2007 End: 04-28-2007 Emergency department patient visit Nola ramses [facility] Start: 04-28-2007 End: 04-28-2007 Patient encounter procedure Nola ramses [facility] Start: 04-28-2007 End: 05-21-2007 Discharged Recurring Nola [facility] Start: 03-01-2002 End: 03-21-2002 Discharged Recurring [facility] Start: 03-01-2002 End: 03-04-2002 [facility] Start: 03-24-2001 End: 03-24-2001 [facility] Start: 03-24-2001 End: 04-04-2001 Evaluation and management of inpatient Nola [facility] Start: 09-27-1996 End: 09-30-1996 Evaluation and management of inpatient [facility] Start: 08-19-1995 End: 08-19-1995 Emergency department patient visit [facility] Start: 09-27-1993 End: 09-27-1993 Patient encounter procedure [facility] Procedures Date Procedure Procedure Detail Performing Clinician Start: 10-07-2022 Esophagogastroduodenoscopy Ganga ZUNIGAL Start: 07-28-2022 Cardiac catheterization Ganga NILL Start: 12-05-2020 Hernia repair Ganga NILL Start: 03-07-2019 Arthroscopy of shoulder A Olexa Nolan Start: 11-22-1996 Abdominal hysterectomy Ganga NILL Arthroscopy of shoulder Palmer ael NILL Cholecystectomy Ganga ZUNIGAL Ectopic (disorder) Ganga NILL Exploratory laparotomy Yrn ZUNIGAL History of subtotal thyroidectomy Ganga ZUNIGAL History of tonsillectomy Chuy hasherri NILL Partial resection of colon Cali PEARCE Payers Date Payer Category Payer Self-pay 1960 Medicaid [id number] 1960 Medicare [id number] 1960 Self-pay [id number] 1960 Unknown [id number] 1960 Unknown [id number] 1960 Unknown [id number] 2.16.84 0.1.665174.3.579.2.593 1960 Unknown [id number] 2.16.84 0.1.950405.3.579.2.593 1959 Unknown [id number] 2.16.84 0.1.715700.3.579.2.593 1959 Unknown [id number] 2.16.84 0.1.062333.3.579.2.593 1959 Unknown [id number] 2.16.84 0.1.890980.3.579.2.593 1959 Unknown [id number] 2.16.84 0.1.632200.3.579.2.593 1959 Unknown [id number] 2.16.84 0.1.364991.3.579.2.593 1959 Unknown [id number] 2.16.84 0.1.514157.3.579.2.593 1959 Unknown [id number] 2.16.84 0.1.707009.3.579.2.593 1959 Unknown [id number] 2.16.84 0.1.093956.3.579.2.593 1959 Unknown [id number] 2.16.84 0.1.251915.3.579.2.593 1959 Unknown [id number] 2.16.84 0.1.875164.3.579.2.593 1959 Unknown [id number] 2.16.84 0.1.758699.3.579.2.593 1959 Unknown [id number] 2.16.84 0.1.380110.3.579.2.593 1959 Unknown [id number] 2.16.8 40.1.730346.3.579.2.727 1959 Unknown [id number] 2.16.8 40.1.719963.3.579.2.727 1959 Unknown [id number] 2.16.8 40.1.391247.3.579.2.727 Medicare [id number] Unknown [id number] 2.16.8 40.1.223901.3.579.2.531 Social History Date Type Detail Facility Start: 09-02-2022 Tobacco smoking status Ex-smoker (fi nding) [facility] [place] Tobacco smoking status Never [facility] [place] Sex Assigned At Female [facility] [place] Medical Equipment Procedure Code Equipment Code Equipment Origin al Text Equipment Identifier Dates HERNIA REPAIR, R OBOT ASSISTED Ganga PEARCE MD 12/05/20 Non Biological Abdomen {[id number] FDA Start: 12-05-2020 Functional Status Date Assessment Result Facility 09-02-2022 Functional Status N/A General [facility] Progress note 12-15-2023 Note Date & Type Note Facility 12-15-2023 Note [facility] Kaitlynn Medley is a 63 y.o. year [...] is not ill-ap (more content not included)... [facility] Progress note 04-05-2023 Note Date & Type Note Facility 04-05-2023 Note [facility] - [facility] Kaitlynn Medley is a 63 y.o. year [...] swelling. Cervical back (more content not included)... [facility] Clinical Note 10-07-2022 Note Date & Type [...] good condition. CC: Nola Ramirez M.D. [facility] Clinical Note 09-02-2022 Note Date [...] Allergies Social Hi (more content not included)... [facility] Comment on above: Result Comment: Elec tronically Signed By: PORTIA LEHMAN, Ganga Salgado\shaheed\Date and Time Signed: 09/02/22 15:31 EDT Evaluation + Plan note Note Date & Type Note Facility Evaluation + Plan note No data available for this section [facility] Discharge instructions Note Date & Type Note Facility Hospital Discharge instructions No data available for this section [facility] [place] Progress note Note Date & Type Note Facility Progress note No data available for this section [facility] [place] Summary Purpose Family History No Family History Records FoundNo Family History Records FoundNo Family History Records FoundNo Family History Records FoundNo Family History Records Found Advance Directives No Advanced Directives Records FoundNo Advanced Directives Records FoundNo Advanced Directives Records FoundNo Advanced Directives Records FoundNo Advanced Directives Records Found Additional Source Comments INFORMATION SOURCE (unrecogn ized section and content) DATE CREATED AUTHOR 07/31/2022 [facility] DATE CREATED AUTHOR AUTHOR'S ORGANIZ ATION 10/14/2022 [facility] DATE CREATED AUTHOR AUTHOR'S ORGANIZ ATION 10/22/2022 [facility] DATE CREATED AUTHOR AUTHOR'S ORGANIZ ATION 12/16/2023 [facility] DATE CREATED AUTHOR AUTHOR'S ORGANIZ ATJAVI 06/22/[address] [facility] Patient Care team informatio n (unrecognized section and content) Personnel Name: Nola Ramirez MD Address: Address: [address] [place] [address] Name: Toya Cap InspectorFlorence Personnel Name: Nola Ramirez MD Address: Address: [address] [place] [address] Name: Toya Cap InspectorFlorence FOR RECORDS PERTAINING TO PATIENTS WHO ARE [...] BE BASED ON THE PRIMARY CLINICAL RECORDS. [facility] [employer] provides no warranty or guarantee of the accuracy or completeness of information in this document.
[2024-06-27 09:16] LABS: Alanine Aminotransferase 22 U/L (14-59); Albumin Level 3.7 g/dL (3.4-5.0); Alkaline Phosphatase 212 U/L (46-116); Aspartate Amino Transferase 11 U/L (15-37); Bilirubin Direct 0.1 mg/dL (0.0-0.2); Bilirubin Total 0.4 mg/dL (0.2-1.0); Chol HDL Ratio 3.5; Cholesterol 183 mg/dL (<=200); Globulin 3.7 g/dL; HDL Cholesterol 52 mg/dL (40-60); Total Protein 7.4 g/dL (6.4-8.2); Triglycerides 231 mg/dL (<=150); VLDL CHOLESTEROL 46.2 mg/dL
== END 2024-06-27 08:11 | disposition home or self-care (01) ==
LOC: LAB 08:14
PROVIDERS: PCP Family Medicine; Visit Provider Internal Medicine Interventional Cardiology
DX: E78.2 Mixed hyperlipidemia (principal)
CPT/HCPCS: 36415; 80061; 80076

== ENCOUNTER 2024-07-11 13:56 | Outpatient (OUT) | payer MEDICARE, SELFPAY ==
--- NOTE | 2024-07-11 14:00 | CA_ITS ---
Patient Name: NAZARIO MEDLEY MR#: [id number] : 1960 Exam Date: 07/11/2024 Ordering Doctor: DR JESSIE RODGERS M.D. ECHOCARDIOGRAM REPORT PROCEDURE: CA ECHO DOPPLER COMPLETE INDICATIONS: Dyspnea on exertion COMPARISON: None. DESCRIPTION: COMPLETE ECHOCARDIOGRAM Real-time transthoracic echocardiography with 2D, M-mode, spectral and color flow Doppler performed. QUALITY: Technical quality was good. LEFT VENTRICLE: Normal chamber size. Normal left ventricular wall thickness. LV EF: Normal left ventricular ejection fraction, (60%). DIASTOLIC: Diastolic function is indeterminate. ATRIAL SEPTUM: LEFT ATRIUM: Mild chamber dilatation. RIGHT ATRIUM: Normal chamber size. RIGHT VENTRICLE: Normal chamber size. Normal right ventricular systolic function. TRICUSPID VALVE: Normal mobility and thickness. No stenosis with trivial regurgitation. Doppler studies reveal mildly (35-45) elevated right sided pressures. RVSP 36 mmHg MITRAL VALVE: Normal mobility and thickness. No evidence of mitral valve stenosis. Mild mitral annular calcification. Trivial mitral regurgitation. AORTIC VALVE: Normal trileaflet appearance. No visible sclerosis. Normal leaflet mobility. No evidence of aortic valve stenosis. No aortic regurgitation. AORTIC ROOT: Normal diameter and appearance. Ascending aorta is normal in size. PULMONIC VALVE: Normal thickness and mobility. No stenosis. Trivial regurgitation. PERICARDIUM: No evidence of pericardial effusion. IVC: Collapses with inspirations. IVC is normal in size. PLEURA: CONCLUSION: 1. Normal left ventricular size and systolic function. LVEF is estimated at 60%. 2. Normal right ventricular size and systolic function. 3. Mild left atrial dilatation. 4. No significant valvular dysfunction. 5. Mildly elevated right-sided pressures. 6. No pericardial effusion. Adult Echocardiography Procedure Report Left Ventricle LVEDD (3.7 - 5.6 cm): 4.71 cm LVESD (2.2 - 4.0 cm): 2.94 cm LVIVS thickness (0.6 - 1.2 cm): 1.00 cm LVPW thickness (0.5 - 1.0 cm): 0.92 cm e': 0.10 m/s E - e': 7.70 LVOT Max Gradient: 5.04 mm[Hg] LVOT Area (cm2): 1.12 m/s Peak Velocity (LVOT): 1.12 m/s Mean Velocity (LVOT): 0.71 m/s LVOT Diameter 2.08 cm Left Atrium LA Volume Index (2D A2C): 24.38 ml/m2 Left Atrium Systolic Dimension: 3.71 cm Mitral Valve MV E to A Ratio: 1.32 Mitral Valve A-Wave Peak Velocity: 0.61 m/s Mitral Valve E-Wave Peak Velocity: 0.81 m/s Right Ventricle Aorta AO Root Diam: 3.19 cm Ascending Ao Diam: 3.02 cm Aortic Valve AoV Area (Peak Amandeep): 2.50 cm2, 2.50 cm2 AoV Area (VTI): 2.73 cm2, 2.73 cm2 Peak Velocity(Antegrade Flow): 1.52 m/s Peak Gradient(Antegrade Flow): 9.23 mm[Hg] Mean Velocity(Antegrade Flow): 0.93 m/s Mean Gradient(Antegrade Flow): 4.17 mm[Hg] Velocity Time Integral: 33.77 cm Tricuspid Valve Peak Velocity (Regurgitant Flow): 2.88 m/s Pulmonic Valve Mean Gradient: 1.81 mm[Hg] Mean Velocity: 0.62 m/s Peak Velocity: 1.03 m/s, 0.96 m/s Peak Gradient: 4.27 mm[Hg], 3.70 mm[Hg] Right Atrium Right Atrium Systolic Pressure: 39.30 ml, 39.30 ml Dictated by: Jessie Rodgers M.D. on 07/11/2024 at 19:10 Approved by: Jessie Rodgers M.D. on 07/11/2024 at 19:13
--- OUTSIDE RECORDS SUMMARY | 2024-07-11 14:14 | XMS_ITS | CCD ---
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 [employer] Name Role Phone Nola Ramirez Primary Care [...] GAGAN Attending Unavailable SAMSA, GAGAN Admitting Unavailable SAMSAGAGAN Consulting Unavailable JAMES, [...] Admitting Unavailable NILL, DR SCHULER Consulting Unavailable YUDITHY, DR VACA Primary Care Unavailable NILL, DR [...] Unavailable HOY, DR VACA Primary Care Unavailable MOUKARBSHERRI, DR ROMAN Attending Unavailable MOUKARBEL, DR ROMAN [...] JESSIE Attending Unavailable MOUKARBEL, JESSIE Attending Unavailable DeniseDereck partida Attending Unavailab le DeniseDereck rabago Admitting Unavailab Nola De La Fuente Primary Care Unavailable Allergies Allergy Classification Reported Allergen(s) Allergy Type Date of Onset Reaction(s) Facility (1 source) 66605,00 Drug allergy (disorder) 1 [facility] Repository (1 source) oxyCODONE; Translations: [OxyCODONE Hydrochloride] Drug Allergy [facility] Repository (1 source) No Known Medication Allergies; Translations: [No Known Medication Allergies] Propensity to adverse reactions (disorder) [facility] Repository Medications Current Medications Medication Drug Class(es) [...] 300 mg by mouth once aarti y Wilmont Carbonate 300 MG Oral Daily June 13, 2019 Active Start: 06-13-2019 take 600 mg by mouth at bedtim e Wilmont Carbonate 600 MG Oral Bedtime June 13, 2019 Active Start: 06-01-2019 End: 06-13-2019 take 300 mg by mouth at bedtime [place] Carbonate 300 MG Oral Bedtime June 01, 2019 June 13, 2019 Discontinued Start: 08-15-2018 End: 06-01-2019 take 150 mg by mouth at bedtime [place] Carbonate 150 MG Oral Bedtime February 27, [...] Trazodone 100 MG Oral Daily at bedtime August 15, 2018 February 27, 2019 Discontinued [...] 2 02-02-2014 Chronic Other 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 source) 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; Translations: [CORRECTION CURRENT USE OF ASPIRIN] Onset: 2 Episodic [...] disease 11-29-2020 Episodic Other lower respiratory disease (4 sources) Shortness of breath; Translations: [SHORTNESS OF BREATH] Onset: 2 Episodic Other lower respiratory disease (7 sources) [...] Nausea and vomiting (1 source) Nausea Episodic Suicide and intentional self-inflicted injury (1 source) Suicidal thoughts Episodic Unclassified (1 source) CONTACT W/AND (SUSP) EXPOS COVID-19; Translations: [CONTACT W/AND (SUSP) EXPOS COVID-19] Onset: 08-11-2022 Results Test Name Value Interpretation Reference Range Facility Office Visiton 06-28-2024 Follow-up visit [id number] Julia Medley 1960 F Date Provider Department Center 06/28/2024 JESSIE RIVERA GAL [facility] Family History Problem Relation Age of Onset Hypertension Mother Hypertension Father Family Status - Relation Status Age at Mother Father Level of Service:72119 PA OFFICE/OUTPATIENT ESTABLISHED MOD MDM 30 MIN Normal [facility] Office Visiton 12-15-2023 Follow-up visit [id number] ElizabethJulia gonzales gloria 1960 F Date Provider Department Center 12/15/2023 JESSIE RIVERA GAL [facility] Family History Problem Relation Age of Onset Hypertension Mother Hypertension Father Family Status - Relation Status Age at Mother Father Level of Service:71380 PA OFFICE/OUTPATIENT ESTABLISHED MOD MDM 30 MIN Normal [facility] General Surgery Office/Clini c Noteon 10-21-2022 [...] 2: Mother. Hypertension: Mother and Father. Normal [facility] Comment on above: Result Comment: Elec tronically Signed By: CAIT LEHMAN, Ganga Valencia\Date and Time Signed: 10/21/22 15:25 EST Operative Reporton 2 Operative Report [id number]#1.00CD:127 Normal [facility] Operative Reporton 2 Operative Report [id number]#1.00CD:127 [facility] Pathology Noteon 10-09-2022 Pathology Note [id number]#1.00CD:127 Normal [facility] Lab Reportson 10-05-2022 Lab Reports [id number]#1.00CD:127 [facility] Covid-19 PCR ([facility])on 09-22 SARS-CoV-2 (COVID-19) RNA ISABEL+probe Ql (Unsp spec) Not detected Normal NOT DETECTED [facility] Comment on above: Result Comment: This test is not yet approved or cleared by the [place] FDA. When there are no FDA-approved or cleared tests available, and other criteria are met, FDA can make tests available under an emergency access mechanism called an Emergency Use Authorization (EUA). The EUA for this test is supported by the Head Counselor of Health and Human Service's (HHS's) declaration [...] consistent with SARS-CoV-2. Performed By: #### [facility] #### [facility] [id number] Osmar Cox Consent for Procedure/Surger yon 09-03-2022 Consent for Procedure/Surgery [id number]#[id number]:127 Normal [facility] Ambulatory Visit Summaryon 1 Ambulatory Visit Summary [...] of Clostridium difficile infection Memory loss Normal [facility] Outside [facility] Correspo ndenceon 08-19-2022 Outside Hospital Correspondence [id number]#[id number]:127 [facility] RAD - CT Reporton 08-19-2022 RAD - CT Report [id number]#1.00CD:127 [facility] RAD - MISCon 08-19-2022 RAD - MISC [id number]#1.00CD:127 [facility] Physician Referralon 022 Physician Referral [id number]#1.00CD:127 Normal [facility] Covid-19 PCR ([facility])on 07-24 SARS-CoV-2 (COVID-19) RNA ISABEL+probe Ql (Unsp spec) Not detected Normal NOT DETECTED [facility] Comment on above: Result Comment: This test is not yet approved or cleared by the [place] FDA. When there are no FDA-approved or cleared tests available, and other criteria are met, FDA can make tests available under an emergency access mechanism called an Emergency Use Authorization (EUA). The EUA for this test is supported by the Head Counselor of Health and Human Service's (HHS's) declaration [...] consistent with SARS-CoV-2. Performed By: #### [facility] #### [facility] [address] [place] [address] Dr. Osmar Cox XR MODIFIED BARIUM SWALLOWon [...] NICOLAS KIRK Date: 2022-08-06 15:18 Normal [facility] Cardiovascular Lab Reporton 07-29-2022 Cardiovascular Lab Report [facility] Patient Name: [facility] MR #: [id number] Physician: Jessie Rao M.D. Medicine Service Date: 07/28/2022 Division of Birthdate: 1960 Cardiology Room #: Adult Cardiovascular Services [place] [address] [address] [place] [id number] Cardiovascular Laboratory Report INDICATIONS: The patient is [...] signed informed consent. 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 The right neck area was prepped and draped in usual fashion. Micropuncture technique and ultrasound guidance were used for access in the right internal jugular vein. A 6-St Lucian x 11 cm sheath was placed. A 6-St Lucian Suarez catheter was used for right heart catheterization and measurement of pressures and calculation of cardiac output using the estimated Karina method. Suarez catheter was removed. Micropuncture technique and ultrasound guidance were used for access in the right radial artery. A 5-St Lucian x 11 cm slender sheath was advanced. Verapamil was given through the sheath and heparin was administered intravenously. Bilateral selective coronary angiography was then performed using 5-St Lucian JL 3.5 and JR5 diagnostic catheters. Catheters [...] Arnett M.D. Date Trans: 07/29/2022 03:31 A/gladys [id number] cc: Nola Ramirez M.D. [address], [facility] [address] Normal [facility] CBC AUTO DIFFon 07-24-2022 BASO # 0.1 103/ul Normal 0.0-0.1 [facility] Comment on above: Performed By: #### C BC #### [facility] [address] [place] [address] Dr. Osmar Cox Basophils/100 WBC (Bld) 0.9 % Normal 0.2-2.0 [facility] Comment on above: Performed By: #### C BC #### [facility] [address] [place] [address] Dr. Osmar Cox EO # 0.0 103/ul Normal 0.0-0.7 [facility] Comment on above: Performed By: #### C BC #### [facility] [address] [place] [address] Dr. Osmar Cox Eosinophils/100 WBC (Bld) 0.1 % Critically low 0.9-7.0 [facility] Comment on above: Performed By: #### C BC #### [facility] [address] [place] [address] Dr. Osmar Cox Erythrocyte distribution width (RBC) [Ratio] 15.4 % Critically high 11.0-15.0 [facility] Comment on above: Performed By: #### C BC #### [facility] [address] [place] [address] Dr. Osmar Cox Hematocrit (Bld) [Volume fraction] 40.7 % Normal 36.0-48.0 [facility] Comment on above: Performed By: #### C BC #### [facility] [address] [place] [address] Dr. Osmar Cox Hemoglobin (Bld) [Mass/Vol] 12.5 g/dL Normal 12.0-16.0 [facility] Comment on above: Performed By: #### C BC #### [facility] [address] [place] [address] Dr. Osmar Cox IG # 0.08 10e3/ul Critically high 0.00-0.03 [facility] Comment on above: Performed By: #### C BC #### [facility] [address] [place] [address] Dr. Osmar Cox IG % 0.7 % Critically high 0.0-0.5 [facility] Comment on above: Performed By: #### C BC #### [facility] [address] [place] [address] Dr. Osmar Cox LYMPH # 2.6 103/ul Normal 1.2-3.8 [facility] Comment on above: Performed By: #### C BC #### [facility] [address] [place] [address] Dr. Osmar Cox Lymphocytes/100 WBC (Bld) 22.8 % Normal 20.5-60.0 [facility] Comment on above: Performed By: #### C BC #### [facility] [address] [place] [address] Dr. Osmar Cox MANUAL DIFF REQ NO Normal [facility] Comment on above: Performed By: #### C BC #### [facility] [address] [place] [address] Dr. Osmar Cox MCH (RBC) [Entitic mass] 24.4 pg Critically low 26.7-34.0 [facility] Comment on above: Performed By: #### C BC #### [facility] [address] [place] [address] Dr. Osmar Cox MCHC (RBC) [Mass/Vol] 30.7 g/dL Normal 29.9-35.2 [facility] Comment on above: Performed By: #### C BC #### [facility] [address] [place] [address] Dr. Osmar Cox MCV (RBC) [Entitic vol] 79.3 fL Critically low 81.0-99.0 [facility] Comment on above: Performed By: #### C BC #### [facility] [address] [place] [address] Dr. Osmar Cox MONO # 1.0 103/ul Critically high 0.3-0.8 [facility] Comment on above: Performed By: #### C BC #### [facility] [address] [place] [address] Dr. Osmar Cox Monocytes/100 WBC (Bld) 8.9 % Normal 1.7-12.0 [facility] Comment on above: Performed By: #### C BC #### [facility] [address] [place] [address] Dr. Osmar Cox NEUT # 7.6 103/ul Critically high 1.4-6.5 [facility] Comment on above: Performed By: #### C BC #### [facility] [address] [place] [address] Dr. Osmar Cox Neutrophils/100 WBC (Bld) 66.6 % Normal 43.0-75.0 [facility] Comment on above: Performed By: #### C BC #### [facility] [address] [place] [address] Dr. Osmar Cox Platelet mean volume (Bld) [Entitic vol] 8.8 fL Critically low 9.5-13.5 [facility] Comment on above: Performed By: #### C BC #### [facility] [address] [place] [address] Dr. Osmar Cox PLT 438 103/ul Normal 150-450 [facility] Comment on above: Performed By: #### C BC #### [facility] [address] [place] [address] Dr. Osmar Cox RBC 5.13 106/ul Normal 4.20-5.40 [facility] Comment on above: Performed By: #### C BC #### [facility] [address] [place] [address] Dr. Osmar Cox WBC 11.3 103/ul Critically high 4.0-11.0 [facility] Comment on above: Performed By: #### C BC #### [facility] [address] [place] [address] Dr. Osmar Cox [facility]on SARS-CoV-2 (COVID-19) RNA ISABEL+probe Ql (Unsp spec) Not detected Normal NOT DETECTED [facility] Comment on above: Result Comment: This test is not yet approved or cleared by the [place] FDA. When there are no FDA-approved or cleared tests available, and other criteria are met, FDA can make tests available under an emergency access mechanism called an Emergency Use Authorization (EUA). The EUA for this test is supported by the Head Counselor of Health and Human Service's (HHS's) declaration [...] consistent with SARS-CoV-2. Performed By: #### C VDTB #### [facility] [address] [place], [place] [address] CHEST HI RESOLUTIONon [...] CONSUELO TELLES Date: 2022-07-20 11:51 Normal [facility] BNPon 07-10-2022 Natriuretic peptide B (Bld) [Mass/Vol] 85.0 pg/mL Normal <=900.0 [facility] Comment on above: Performed By: #### B SHOP DIRECTOR, BMP, LIVER, LIPID ####[facility] [address] [place], [place] [address]JfDr. Osmar Cox LIPID PROFILEon 07-10-2022 CHOL-HDL RATIO NORM SEE BELOW Normal [facility] Comment on above: Result Comment: 3.3 - 4.4 LOW RISK 4.4 - 7.1 AVERAGE RISK 7.1 - 11.0 MODERATE RISK >11.0 HIGH RISK Performed By: #### B SHOP DIRECTOR, BMP, LIVER, LIPID ####[facility] [address] [place] [id number]. Osmar Cox Cholesterol [Mass/Vol] 229 mg/dL Critically high <=200 [facility] Comment on above: Performed By: #### B SHOP DIRECTOR, BMP, LIVER, LIPID ####[facility] [address] [id number]. Osmar Cox Cholesterol in HDL [Mass/Vol] 51 mg/dL Normal 40-60 [facility] Comment on above: Performed By: #### B SHOP DIRECTOR, BMP, LIVER, LIPID ####[facility] [address] [place] [id number]. Osmar Cox Cholesterol in LDL [Mass/Vol] 130.2 mg/dL Normal [facility] Comment on above: Performed By: #### B SHOP DIRECTOR, BMP, LIVER, LIPID ####[facility] [address] [place] [phone]. Osmar Cox Cholesterol.total/ Cholesterol in HDL [Mass ratio] 4.5 {ratio} Normal [facility] Comment on above: Performed By: #### B SHOP DIRECTOR, BMP, LIVER, LIPID ####[facility] [address] [id number]. Osmar Cox HDL NORMAL > or = 60 mg/dl - LO W CARDIOVASCULAR RISK <40 mg/dl - HIGH CARDIOVASCULAR RISK Normal [facility] Comment on above: Performed By: #### B SHOP DIRECTOR, BMP, LIVER, LIPID ####[facility] [address] [place] [phone]. Osmar Cox LDL CALC NORMAL SEE BELOW Normal [facility] Comment on above: Result Comment: <100 mg/dl OPTIMAL 100 - 129 mg/dl NEAR OR ABOVE OPTIMAL 130 - 159 mg/dl BORDERLINE HIGH 160 - 189 mg/dl HIGH >190 mg/dl VERY HIGH Performed By: #### B SHOP DIRECTOR, BMP, LIVER, LIPID ####[facility] [address] [place] [id number]. Osmar Cox Triglyceride [Mass/Vol] 239 mg/dL Critically high <=150 [facility] Comment on above: Performed By: #### B SHOP DIRECTOR, BMP, LIVER, LIPID ####[facility] [address] [place] [phone]. Osmar Cox VLDL CALC 47.8 mg/dL Normal [facility] Comment on above: Performed By: #### B SHOP DIRECTOR, BMP, LIVER, LIPID ####[facility] [address] [place] [phone]. Lindakenyon Kenny LIVER PROFILEon 07-10-2022 Albumin [Mass/Vol] 3.5 g/dL Normal 3.4-5.0 [facility] Comment on above: Performed By: #### B SHOP DIRECTOR, BMP, LIVER, LIPID ####[facility] [address] [place] [address]Dr. Osmar Cox Albumin/Globulin [Mass ratio] 1.0 {ratio} Normal [facility] Comment on above: Performed By: #### B SHOP DIRECTOR, BMP, LIVER, LIPID ####[facility] [address] [place] [address]Dr. Osmar Cox ALP [Catalytic activity/Vol] 183 U/L Critically high 46-116 [facility] Comment on above: Performed By: #### B SHOP DIRECTOR, BMP, LIVER, LIPID ####[facility] [address] [place] [address]Dr. Osmar Cox ALT [Catalytic activity/Vol] 32 U/L Normal 14-59 [facility] Comment on above: Performed By: #### B SHOP DIRECTOR, BMP, LIVER, LIPID ####[facility] [address] [address]Dr. Osmar Cox AST [Catalytic activity/Vol] 17 U/L Normal 15-37 [facility] Comment on above: Performed By: #### B SHOP DIRECTOR, BMP, LIVER, LIPID ####[facility] [address] [phone]. Osmar Cox BILI, CONJUGATED 0.1 mg/dL Normal 0.0-0.2 [facility] Comment on above: Performed By: #### B SHOP DIRECTOR, BMP, LIVER, LIPID ####[facility] [address] [phone]. Osmar Cox Bilirubin [Mass/Vol] 0.2 mg/dL Normal 0.2-1.0 [facility] Comment on above: Performed By: #### B SHOP DIRECTOR, BMP, LIVER, LIPID ####[facility] [address] [address]DrKate Cox Globulin (S) [Mass/Vol] 3.5 g/dL Normal [facility] Comment on above: Performed By: #### B SHOP DIRECTOR, BMP, LIVER, LIPID ####[facility] [address] [place] [address] [address]Dr. Osmar Cox Protein [Mass/Vol] 7.0 g/dL Normal 6.4-8.2 [facility] Comment on above: Performed By: #### B SHOP DIRECTOR, BMP, LIVER, LIPID ####[facility] [address] [address]DrKate Cox PROF CHEM 8 (BAS METB)on Anion gap [Moles/Vol] 11.6 mmol/L Normal [facility] Comment on above: Performed By: #### B SHOP DIRECTOR, BMP, LIVER, LIPID #### [facility] [address] [address] [address] Osmar Cox Calcium [Mass/Vol] 8.9 mg/dL Normal 8.5-10.1 [facility] Comment on above: Performed By: #### B SHOP DIRECTOR, BMP, LIVER, LIPID #### [facility] [address] [address] [address] Osmar Cox Chloride [Moles/Vol] 104 mmol/L Normal 98-107 [facility] Comment on above: Performed By: #### B SHOP DIRECTOR, BMP, LIVER, LIPID #### [facility] [address] [address] [address] Osmar Cox CO2 [Moles/Vol] 26.0 mmol/L Normal 21.0-32.0 [facility] Comment on above: Performed By: #### B SHOP DIRECTOR, BMP, LIVER, LIPID #### [facility] [address] [address] [address] Osmar Cox Creatinine [Mass/Vol] 0.80 mg/dL Normal 0.55-1.02 [facility] Comment on above: Performed By: #### B SHOP DIRECTOR, BMP, LIVER, LIPID #### [facility] [address] [address] [address] Osmar Cox EGFR-AF [place] ISLANDER >60 Normal >=60 [facility] Comment on above: Performed By: #### B SHOP DIRECTOR, BMP, LIVER, LIPID #### [facility] [address] [address] [address] Osmar Cxo EGFR-NON AF [place]ER >60 Normal >=60 [facility] Comment on above: Performed By: #### B SHOP DIRECTOR, BMP, LIVER, LIPID #### [facility] [address] [address] [address] Osmar Cox Glucose [Mass/Vol] 100 mg/dL Normal 74-106 [facility] Comment on above: Performed By: #### B SHOP DIRECTOR, BMP, LIVER, LIPID #### [facility] [address] [place] [address] Dr. Osmar Cox Potassium [Moles/Vol] 4.6 mmol/L Normal 3.5-5.1 [facility] Comment on above: Performed By: #### B SHOP DIRECTOR, BMP, LIVER, LIPID #### [facility] [address] [place] [address] Dr. Osmar Cox Sodium [Moles/Vol] 137 mmol/L Normal 136-145 [facility] Comment on above: Performed By: #### B SHOP DIRECTOR, BMP, LIVER, LIPID #### [facility] [address] [place] [address] Dr. Osmar Cox Urea nitrogen [Mass/Vol] 20.0 mg/dL Critically high 7.0-18.0 [facility] Comment on above: Performed By: #### B SHOP DIRECTOR, BMP, LIVER, LIPID #### [facility] [address] [place] [address] Dr. Osmar Cox Urea nitrogen/Creatinin e [Mass ratio] 25.0 mg/mg Normal [facility] Comment on above: Performed By: #### B SHOP DIRECTOR, BMP, LIVER, LIPID #### [facility] [address] [place] [address] Dr. Osmar Cox XR CHEST 2 Von [...] by: CONSUELO TELLES Date: 2022-06-04 19:26 Normal [facility] HEMOGLOBINon 06-02-2022 Hemoglobin (Bld) [Mass/Vol] 12.1 g/dL Normal 12.0-16.0 [facility] Comment on above: Performed By: #### H GB #### [facility] [address] [place] [address] Dr. Osmar Cox XR CHEST 2 Von [...] by: CONSUELO TELLES Date: 2022-06-02 19:19 Normal [facility] NM STRESS/REST MULTIon 05-06 NM STRESS/REST MULTI Patient: EBONY MEDLEY Exam Date: 05/06/2022 : 1960 Gender:F Ordering : DR NOLA RAMIREZ . Admission #: [id number] Family : Order #: [id number] CLICK HERE TO VIEW EXAM RADIOLOGY REPORT [...] Kirk M.D. on 05/07/2022 at 11:04 Normal [facility] ECHOCARDIO M/2D COMPLETEon 0 04-29-2022 ECHOCARDIO M/2D COMPLETE Patient: EBONY MEDLEY Exam Date: 04/29/2022 : 1960 Gender:F Ordering : DR NOLA RAMIREZ . Admission #: [id number] Family : Order #: [id number] CLICK HERE TO VIEW EXAM ECHOCARDIOGRAM REPORT [...] M.D. on 04/30/2022 at 20:06 Approved by: Jessei Arnett M.D. on 04/30/2022 at 20:09 Normal [facility] LITHIUMon 03-20-2022 Wilmont (Eskalith(R)), Serum 0.6 mmol/L Normal 0.5-1.2 [facility] Comment on above: Result Comment: Plas ma concentration of 0.5 - 0.8 mmol/L are advised for long-term use; concentrations of up to 1.2 mmol/L may be necessary during acute treatment. Detection Limit = 0.1 <0.1 indicates None Detected Performed By: #### L ITHIUM ####[facility] [address] [place], [place] [address]DrKate Cox LIPID PROFILEon 03-19-2022 CHOL-HDL RATIO NORM SEE BELOW Normal [facility] Comment on above: Result Comment: 3.3 - 4.4 LOW RISK 4.4 - 7.1 AVERAGE RISK 7.1 - 11.0 MODERATE RISK >11.0 HIGH RISK Performed By: #### T SH, T4, LIPID, CMP ####[facility] [address] [place] [address] [id number]. Osmar Cox Cholesterol [Mass/Vol] 269 mg/dL Critically high <=200 [facility] Comment on above: Performed By: #### T SH, T4, LIPID, CMP ####[facility] [address] [place] [id number]. Osmar Kenny Cholesterol in HDL [Mass/Vol] 48 mg/dL Normal 40-60 [facility] Comment on above: Performed By: #### T SH, T4, LIPID, CMP ####[facility] [address] [place] [phone]. Osmar Cox Cholesterol in LDL [Mass/Vol] 145.8 mg/dL Normal [facility] Comment on above: Performed By: #### T SH, T4, LIPID, CMP ####[facility] [address] [place] [id number]. Osmar Cox Cholesterol.total/ Cholesterol in HDL [Mass ratio] 5.6 {ratio} Normal [facility] Comment on above: Performed By: #### T SH, T4, LIPID, CMP ####[facility] [address] [place] [id number]. Lindakenyon Kenny HDL NORMAL > or = 60 mg/dl - LO W CARDIOVASCULAR RISK <40 mg/dl - HIGH CARDIOVASCULAR RISK Normal [facility] Comment on above: Performed By: #### T SH, T4, LIPID, CMP ####[facility] [address] [place] [id number]. Osmar Kenny LDL CALC NORMAL SEE BELOW Normal [facility] Comment on above: Result Comment: <100 mg/dl OPTIMAL 100 - 129 mg/dl NEAR OR ABOVE OPTIMAL 130 - 159 mg/dl BORDERLINE HIGH 160 - 189 mg/dl HIGH >190 mg/dl VERY HIGH Performed By: #### T SH, T4, LIPID, CMP ####[facility] [address] [place] [address]Dr. Osmar Cox Triglyceride [Mass/Vol] 376 mg/dL Critically high <=150 [facility] Comment on above: Performed By: #### T SH, T4, LIPID, CMP ####[facility] [address] [place] [address]Dr. Osmar Cox VLDL CALC 75.2 mg/dL Normal [facility] Comment on above: Performed By: #### T SH, T4, LIPID, CMP ####[facility] [address] [place] [address]Dr. Osmar Cox PROF 14(COMP METB)on 022 Albumin [Mass/Vol] 3.4 g/dL Normal 3.4-5.0 [facility] Comment on above: Performed By: #### T SH, T4, LIPID, CMP ####[facility] [address] [place] [address]Dr. Osmar Cox Albumin/Globulin [Mass ratio] 1.0 {ratio} Normal [facility] Comment on above: Performed By: #### T SH, T4, LIPID, CMP ####[facility] [address] [place], [place] [address]Dr. Osmar Cox ALP [Catalytic activity/Vol] 118 U/L Critically high 46-116 [facility] Comment on above: Performed By: #### T SH, T4, LIPID, CMP ####[facility] [address] [place] [address]Dr. Osmar Cox ALT [Catalytic activity/Vol] 17 U/L Normal 14-59 [facility] Comment on above: Performed By: #### T SH, T4, LIPID, CMP ####[facility] [address] [place] [address]Dr. Osmar Cox Anion gap [Moles/Vol] 11.3 mmol/L Normal [facility] Comment on above: Performed By: #### T SH, T4, LIPID, CMP ####[facility] [address] [place] [address]Dr. Osmar Cxo AST [Catalytic activity/Vol] 11 U/L Critically low 15-37 [facility] Comment on above: Performed By: #### T SH, T4, LIPID, CMP ####[facility] [address] [place] [address]Dr. Osmar Cox Bilirubin [Mass/Vol] 0.2 mg/dL Normal 0.2-1.0 [facility] Comment on above: Performed By: #### T SH, T4, LIPID, CMP ####[facility] [address] [place], [place] [address]Dr. Osmar Cox Calcium [Mass/Vol] 8.7 mg/dL Normal 8.5-10.1 [facility] Comment on above: Performed By: #### T SH, T4, LIPID, CMP ####[facility] [address] [place], [place] [address]Dr. Osmar Cox Chloride [Moles/Vol] 106 mmol/L Normal 98-107 [facility] Comment on above: Performed By: #### T SH, T4, LIPID, CMP ####[facility] [address] [place], [place] [address]Dr. Osmar Cox CO2 [Moles/Vol] 23.6 mmol/L Normal 21.0-32.0 [facility] Comment on above: Performed By: #### T SH, T4, LIPID, CMP ####[facility] [address] [place], [place] [address]Dr. Osmar Cox Creatinine [Mass/Vol] 0.86 mg/dL Normal 0.55-1.02 [facility] Comment on above: Performed By: #### T SH, T4, LIPID, CMP ####[facility] [address] [place], [place] [address]Dr. Osmar Cox EGFR-AF [place]LANDER >=60 Normal >=60 [facility] Comment on above: Performed By: #### T SH, T4, LIPID, CMP ####[facility] [address] [place], [place] [address]Dr. Osmar Cox EGFR-NON AF [place]ER >=60 Normal >=60 [facility] Comment on above: Performed By: #### T SH, T4, LIPID, CMP ####[facility] [address] [place] [address]Dr. Osmar Cox Globulin (S) [Mass/Vol] 3.3 g/dL Normal [facility] Comment on above: Performed By: #### T SH, T4, LIPID, CMP ####[facility] [address] [place] [address]Dr. Osmar Cox Glucose [Mass/Vol] 104 mg/dL Normal 74-106 [facility] Comment on above: Performed By: #### T SH, T4, LIPID, CMP ####[facility] [address] [place], [place] [address]Dr. Osmar Cox Potassium [Moles/Vol] 4.9 mmol/L Normal 3.5-5.1 [facility] Comment on above: Performed By: #### T SH, T4, LIPID, CMP ####[facility] [address] [place], [place] [address]Dr. Osmar Cox Protein [Mass/Vol] 6.7 g/dL Normal 6.1-8.2 [facility] Comment on above: Performed By: #### T SH, T4, LIPID, CMP ####[facility] [address] [place], [place] [address]Dr. Osmar Cox Sodium [Moles/Vol] 136 mmol/L Normal 136-145 [facility] Comment on above: Performed By: #### T SH, T4, LIPID, CMP ####[facility] [address] [place], [place] [address]Dr. Osmar Cox Urea nitrogen [Mass/Vol] 25.0 mg/dL Critically high 7.0-18.0 [facility] Comment on above: Performed By: #### T SH, T4, LIPID, CMP ####[facility] [address] [place], [place] [address]Dr. Osmar Cox Urea nitrogen/Creatinin e [Mass ratio] 29.1 mg/mg Normal [facility] Comment on above: Performed By: #### T SH, T4, LIPID, CMP ####[facility] [address] [place], [place] [address]Ah. Osmar Cox T4on 03-19-2022 T4 [Mass/Vol] 7.60 ug/dL Normal 4.80-13.90 [facility] Comment on above: Performed By: #### T SH, T4, LIPID, CMP ####[facility] [address] [place], [place] [address]If. Osmar Cox TSHon 03-19-2022 TSH 1.427 uIU/mL Normal 0.470-4.680 [facility] Comment on above: Performed By: #### T SH, T4, LIPID, CMP ####[facility] [address] [place] [id number]. Osmar Cox TSH RANGE SEE BELOW Normal [facility] Comment on above: Result Comment: <0.3 4 UIU/ml HYPERTHYROID 0.34-5.60 UIU/ml EUTHYROID >5.60 UIU/ml HYPOTHYROID Performed By: #### T SH, T4, LIPID, CMP ####[facility] [address] [place], [place] [address]Rt. Osmar Cox Laboratory Studieson 018 Albumin [Mass/Vol] 3.8 g/dL 3.2-5.5 [facility] Albumin/Globulin [Mass ratio] 1.5 {ratio} [facility] ALP [Catalytic activity/Vol] 75 U/L 32-92 [facility] ALT No additional P-5'-P [Catalytic activity/Vol] 16 U/L 10-60 [facility] AST [Catalytic activity/Vol] 18 U/L 10-42 [facility] Basophils (Bld) [#/Vol] 0.1 10*3/uL 0.0-0.2 [facility] Basophils/100 WBC (Bld) 1.0 % [facility] Bilirubin [Mass/Vol] 0.5 mg/dL 0.3-1.2 [facility] Calcium [Mass/Vol] 9.2 mg/dL 8.2-10.2 [facility] Carbamazepine [Mass/Vol] < 2.0 ug/mL Low 4.0-12.0 [facility] Chloride [Moles/Vol] 103 mmol/L 95-114 [facility] CK [Catalytic activity/Vol] 46 U/L 22-269 [facility] CK.MB [Mass/Vol] 1.0 ng/mL 0.6-6.3 [facility] CK.MB Calc [Catalytic fraction] 2.1 0.00-2.50 [facility] CO2 [Moles/Vol] 24.9 mmol/L 22.0-30.0 [facility] Creatinine [Mass/Vol] 0.58 mg/dL 0.44-1.03 [facility] Eosinophils (Bld) [#/Vol] 0.2 10*3/uL 0.0-0.45 [facility] Eosinophils/100 WBC (Bld) 3.1 % [facility] Erythrocyte distribution width (RBC) [Ratio] 13.5 % 11.9-15.3 [facility] Ethanol [Mass/Vol] mg/dL [facility] Ethanol [Mass/Vol] TNP [facility] Comment on above: Test not performed GFR/1.73 sq M predicted among blacks MDRD (S/P/Bld) [Vol rate/Area] mL/min/{1.73_m2} [facility] Comment on above: GFR estimated refere nce range: According to KDOQI guidelines, <60 ml/min/1.73m2 is sufficient to diagnose a patient with chronic kidney disease. GFR/1.73 sq M predicted among non-blacks MDRD (S/P/Bld) [Vol rate/Area] mL/min/{1.73_m2} [facility] Globulin (S) [Mass/Vol] 2.6 g/dL [facility] Glucose [Mass/Vol] 96 mg/dL 70-100 [facility] Comment on above: ADA recommended refe rence range Random Glucose Reference Range is dependent on time and content of last meal. Glucose of more than 200 mg/dL in a nonstressed, ambulatory subject supports the diagnosis of Diabetes Mellitus. Hematocrit (Bld) [Volume fraction] 38.7 % 34.0-46.4 [facility] Hemoglobin (Bld) [Mass/Vol] 12.8 g/dL 11.8-15.4 [facility] Lymphocytes (Bld) [#/Vol] 2.1 10*3/uL 1.00-4.8 [facility] Lymphocytes/100 WBC (Bld) 33.0 % [facility] MCH (RBC) [Entitic mass] 28.3 pg 24.7-34.3 [facility] MCHC (RBC) [Mass/Vol] 33.1 g/dL 32.0-35.0 [facility] MCV (RBC) [Entitic vol] 85.4 fL 80-100 [facility] Monocytes (Bld) [#/Vol] 0.5 10*3/uL 0.0-0.8 [facility] Monocytes/100 WBC (Bld) 7.2 % [facility] Neutrophils (Bld) [#/Vol] 3.5 10*3/uL 1.8-7.7 [facility] Neutrophils/100 WBC (Bld) 55.7 % [facility] Creatinine Clearance (Chem 87.4588 [facility] Platelet mean volume (Bld) [Entitic vol] 6.9 fL 6.3-10.7 [facility] Platelets (Bld) [#/Vol] 270 10*3/uL 150-450 [facility] Potassium [Moles/Vol] 4.3 mmol/L 3.5-5.1 [facility] Protein [Mass/Vol] 6.4 g/dL 6.1-7.9 [facility] RBC (Bld) [#/Vol] 4.52 10*6/uL 3.60-5.00 [facility] Sodium [Moles/Vol] 136 mmol/L 136-146 [facility] Troponin I.cardiac [Mass/Vol] ng/mL 0-0.02 [facility] Comment on above: RIZWANA [place] Cut off value > or equal to 0.03 ng/mL in conjunction with clinical conditions of myocardial infarction. ([email or web address].org/guidelines) Urea nitrogen [Mass/Vol] 18 mg/dL 9-23 [facility] Valproate [Mass/Vol] 52.6 ug/mL 50.0-100.0 [facility] Comment on above: Last dose: - WBC (Bld) [#/Vol] 6.3 10*3/uL 3.8-11.6 [facility] Amphetamines Ql (U) Negative [facility] Barbiturates Ql (U) Negative [facility] Benzodiazepines Ql (U) Negative [facility] Bilirubin Ql (U) Negative [facility] Cannabinoids Screen Ql (U) Negative [facility] Comment on above: These are unconfirme d results and should not be used for legal purposes. Drug Cut-Off Concentration: AMPH 1000 ng/mL ALFREDO 200 ng/mL JAXON 200 ng/mL COCM 300 ng/mL OP 300 ng/mL PCP 25 ng/mL THC 20 ng/mL Clarity Refractometry automated (U) Clear [facility] Cocaine Ql (U) Negative [facility] Color (U) Yellow [facility] Glucose Auto test strip (U) [Mass/Vol] Normal mg/dL [facility] Hemoglobin Auto test strip Ql (U) Negative [facility] Ketones (U) [Mass/Vol] Negative [facility] Leukocyte esterase Auto test strip Ql (U) Negative [facility] Nitrite Ql (U) Negative [facility] Opiates Ql (U) Negative [facility] pH (U) 6.5 [pH] 5.0-9.0 [facility] Phencyclidine Ql (U) Negative [facility] Protein (U) [Mass/Vol] Negative [facility] Specific gravity (U) [Rel density] 1.018 1.001-1.030 [facility] Urobilinogen (U) [Mass/Vol] Normal mg/dL [facility] Vital Signs Date Time Vital Sign Value Performing Clinician Facility 09-02-2022 13:44-0400 Blood Pressure Location Ganga PEARCE [facility] 09-02-2022 13:44-0400 Diastolic blood pressure 82 mm[Hg] Ganga PEARCE [facility] 09-02-2022 13:44-0400 Heart rate 72 /min Ganga PEARCE [facility] [place] 09-02-2022 13:44-0400 Respiratory rate 16 /min Ganga PEARCE [facility] [place] 09-02-2022 13:44-0400 Systolic blood pressure 120 mm[Hg] Ganga PEARCE [facility] [place] 03-07-2019 15:00-0400 Body Temperature 97.8 [degF] [facility] 03-07-2019 15:00-0400 BP Diastolic 88 mm[Hg] [facility] 03-07-2019 15:00-0400 BP Systolic 158 mm[Hg] [facility] 03-07-2019 15:00-0400 Pulse (Heart Rate) 78 /min [facility] 03-07-2019 15:00-0400 Pulse Oximetry 95 % [facility] 03-07-2019 15:00-0400 Respiratory Rate 16 /min [facility] Body weight [facility] NEGATED: Highlighted row BMI (Body Mass Index) [facility] NEGATED: Highlighted row Height [facility] Encounters Encounter Date Encounter Type Care Provider Facility Start: 06-28-2024 End: 06-29-2024 ambulatory [facility] Start: 06-26-2024 ambulatory Dereck De La Rosa acility:[facility] Start: 12-15-2023 End: 12-15-2023 ambulatory [facility] Start: 10-21-2022 End: 10-22-2022 ambulatory Ganga PEARCE Facility:[facility] Start: 10-21-2022 End: 10-21-2022 Patient encounter procedure Ganga PEARCE [facility] Start: 10-08-2022 Encounter for preprocedural laboratory examination DR GANGA PEARCE [facility] Start: 10-07-2022 End: 10-08-[address] GANGA PEARCE Facility:[facility] Start: 10-03-2022 End: 10-04-[address] GANGA PEARCE Facility:[facility] Start: 10-03-2022 End: 10-04-2022 Encounter for preprocedural laboratory examination DR GANGA PEARCE Facility:[facility] Start: 09-02-2022 End: 09-03-2022 ambulatory Ganga PEARCE Facility: [facility] Start: 09-02-2022 End: 09-02-2022 Patient encounter procedure Ganga PEARCE General Surgery [facility] Start: 08-11-2022 End: 08-11-[address] NOLA RAMIREZ Facility:[facility] Start: 08-06-2022 End: 08-07-[address] Nicolas Kirk Facility:[facility] Start: 07-28-2022 End: 07-29-2022 ambulatory NOLA RAMIREZ Facility:[facility] Start: 07-24-2022 End: 07-25-[address] [...] End: 03-15-2019 Patient encounter procedure Nola Ramirez [facility] Start: 03-07-2019 End: 03-07-2019 [facility] Start: 02-01-2018 End: 02-01-2018 Emergency department patient visit Nola Ramirez [facility] Start: 06-07-2014 End: 06-12-2014 Evaluation and management of inpatient Nola ramses [facility] Start: 06-17-2011 End: 06-20-2011 Evaluation and management of inpatient Nola ramses [facility] Start: 05-01-2011 End: 05-18-2011 Evaluation and management of inpatient Nola ramses [facility] Start: 05-27-2010 End: 06-26-2010 Discharged Recurring Nola [facility] Start: 05-22-2010 End: 06-21-2010 Discharged Recurring Nola [facility] Start: 04-22-2010 End: 05-21-2010 Discharged Recurring Nola [facility] Start: 03-22-2010 End: 04-21-2010 Discharged Recurring Nola [facility] Start: 02-20-2010 End: 03-21-2010 Discharged Recurring Nola [facility] Start: 01-20-2010 End: 02-19-2010 Discharged Recurring Nola [facility] Start: 01-20-2010 End: 02-19-[address] [facility] [facility] Start: 01-16-2010 End: 01-19-[address] [facility] Start: 12-23-2009 End: 01-19-2010 [facility] Start: 11-23-2009 End: 12-22-2009 Discharged Recurring Nola Hoy [facility] Start: 11-22-2009 End: 01-20-2010 Discharged Recurring Nola Hoy [facility] Start: 10-22-2009 End: 11-21-2009 Discharged Recurring Nola ramses [facility] Start: 10-15-2009 End: 11-22-2009 Discharged Recurring Nola ramses [facility] Start: 09-22-2009 End: 10-21-2009 Discharged Recurring Nola ramses [facility] Start: 08-22-2009 End: 09-21-2009 Discharged Recurring Nola ramses [facility] Start: 08-06-2009 End: 08-21-2009 Discharged Recurring Nola armses [facility] Start: 07-02-2009 End: 07-22-2009 Discharged Recurring Nola ramses [facility] Start: 06-04-2009 End: 06-21-2009 Discharged Recurring Nola ramses [facility] Start: 04-22-2009 End: 05-21-2009 Discharged Recurring Nola ramses [facility] Start: 03-22-2009 End: 04-21-2009 Discharged Recurring Nola ramses [facility] Start: 02-20-2009 End: 03-21-2009 Discharged Recurring Nola ramses [facility] Start: 02-10-2009 End: 02-10-2009 Emergency department patient visit Nola ramses [facility] Start: 01-21-2009 End: 02-19-2009 Discharged Recurring Nola James [facility] Start: 12-24-2008 End: 01-19-2009 Discharged Recurring Nola James [facility] Start: 11-23-2008 End: 12-22-2008 Discharged Recurring Nola James [facility] Start: 10-22-2008 End: 11-21-2008 Discharged Recurring Nola James [facility] Start: 09-22-2008 End: 10-21-2008 Discharged Recurring Nola James [facility] Start: 08-22-2008 End: 09-21-2008 Discharged Recurring Nola Horamses [facility] Start: 07-24-2008 End: 08-21-2008 Discharged Recurring Nola ramses [facility] Start: 07-02-2008 End: 07-05-2008 Evaluation and management of inpatient Nola ramses [facility] Start: 06-22-2008 End: 07-22-2008 Discharged Recurring Nola James [facility] Start: 06-05-2008 End: 06-14-2008 Evaluation and management of inpatient Nola ramses [facility] Start: 05-29-2008 End: 06-21-2008 Discharged Recurring Nola ramses [facility] Start: 04-24-2008 End: 05-21-2008 Discharged Recurring Nola ramses [facility] Start: 03-22-2008 End: 04-21-2008 Discharged Recurring Nola ramses [facility] Start: 02-21-2008 End: 03-21-2008 Discharged Recurring Nola ramses [facility] Start: 02-14-2008 End: 02-20-2008 Discharged Recurring Nola James [facility] Start: 12-23-2007 End: 01-20-2008 Discharged Recurring Nola Hoy [facility] Start: 12-20-2007 End: 12-23-2007 Evaluation and management of inpatient Nola Hoy [facility] Start: 11-22-2007 End: 12-22-2007 Discharged Recurring Nola Hoy [facility] Start: 10-22-2007 End: 11-21-2007 Discharged Recurring Nola Hoy [facility] Start: 09-22-2007 End: 10-21-2007 Discharged Recurring Nola Hoy [facility] Start: 08-22-2007 End: 09-21-2007 Discharged Recurring Nola Hoy [facility] Start: 07-23-2007 End: 08-21-2007 Discharged Recurring Nola Horamses [facility] Start: 06-22-2007 End: 07-22-2007 Discharged Recurring Nola ramses [facility] Start: 05-22-2007 End: 06-21-2007 Discharged Recurring Nola ramses [facility] Start: 04-28-2007 End: 04-28-2007 Emergency department patient visit Nola Ramirez [facility] Start: 04-28-2007 End: 04-28-2007 Patient encounter procedure Nola ramses [facility] Start: 04-28-2007 End: 05-21-2007 Discharged Recurring Nola [facility] Start: 03-01-2002 End: 03-21-2002 Discharged Recurring Nola [facility] Start: 03-01-2002 End: 03-04-2002 Evaluation and management of inpatient Nola Ramirez [facility] Start: 03-24-2001 End: 03-24-2001 Discharged Recurring Nola Ramirez [facility] Start: 03-24-2001 End: 04-04-2001 Evaluation and management of inpatient Nola ramses [facility] Start: 09-27-1996 End: 09-30-1996 Evaluation and management of inpatient Nola ramses [facility] Start: 08-19-1995 End: 08-19-1995 Emergency department patient visit Nola Ramirez [facility] Start: 09-27-1993 End: 09-27-1993 Patient encounter procedure Nola [facility] Procedures Date Procedure Procedure Detail Performing Clinician Start: 10-07-2022 Esophagogastroduodenoscopy Ganga ZUNIGAL Start: 07-28-2022 Cardiac catheterization Ganga ZUNIGAL Start: 12-05-2020 Hernia repair Ganga NILL Start: 03-07-2019 Arthroscopy of shoulder A Olexa Nolan Start: 11-22-1996 Abdominal hysterectomy Ganga NILL Arthroscopy of shoulder Palmer ael NILL Cholecystectomy Ganga NILL Ectopic (disorder) Ganga ZUNIGAL Exploratory laparotomy Yrn sherri NILL History of subtotal thyroidectomy Ganga ZUNIGAL History of tonsillectomy Chuy hasherri NILL Partial resection of colon M radha NILL Payers Date Payer Category Payer Unknown [id number] 2023 Self-pay 1960 Medicaid [id number] 1960 Medicare [id number] 1959 Self-pay [id number] 1959 Unknown [id number] 2.16.8 [id number] 1959 Unknown [id number] 2.16.84 0.1.341695.3.579.2.593 1959 Unknown [id number] 2.16.84 0.1.648171.3.579.2.593 1959 Unknown [id number] 2.16.84 0.1.275655.3.579.2.593 1959 Unknown [id number] 2.16.84 0.1.255427.3.579.2.593 1959 Unknown [id number] 2.16.84 0.1.028437.3.579.2.593 1959 Unknown [id number] 2.16.84 0.1.548893.3.579.2.593 1959 Unknown [id number] 2.16.84 0.1.516452.3.579.2.593 1959 Unknown [id number] 2.16.84 0.1.197809.3.579.2.593 1959 Unknown [id number] 2.16.84 0.1.445937.3.579.2.593 1959 Unknown [id number] 2.16.84 0.1.707865.3.579.2.593 1959 Unknown [id number] 2.16.84 0.1.436353.3.579.2.593 1959 Unknown [id number] 2.16.84 0.1.791506.3.579.2.593 1959 Unknown [id number] 2.16.84 0.1.294204.3.579.2.593 1959 Unknown [id number] 2.16.84 0.1.785217.3.579.2.593 1959 Unknown [id number] 2.16.84 0.1.054078.3.579.2.593 1959 Unknown [id number] 2.16.8 40.1.230594.3.579.2.727 1959 Unknown [id number] 2.16.8 40.1.951013.3.579.2.727 1959 Unknown [id number] 2.16.8 40.1.038032.3.579.2.727 Medicare [id number] Unknown [id number] 2.16.8 40.1.409028.3.579.2.531 Social History Date Type Detail Facility Start: 09-02-2022 Tobacco smoking status Ex-smoker (fi nding) [facility] [place] Tobacco smoking status Never [facility] [place] Sex Assigned At Female [facility] [place] Medical Equipment Procedure Code Equipment Code Equipment Origin al Text Equipment Identifier Dates HERNIA REPAIR, R OBOT ASSISTED Ganga PEARCE MD 12/05/20 Non Biological Abdomen {[id number] FDA Start: 12-05-2020 Functional Status Date Assessment Result Facility 09-02-2022 Functional Status N/A [facility] Progress note 06-28-2024 Note Date & Type Note Facility 06-28-2024 Note [facility] Kaitlynn Medley is a 64 y.o. year old female patient being seen for 6 mo follow up LE edema, hypertension, and hyperlipidemia. Zetia was added at last visit in Nov 2023, and metoprolol succinate was increased to 50mg daily. Tolerating med changes without issues. She had routine labs w/ lipid panel yesterday. She says her LEES is unchanged from thinks it's worsening. Denies chest pain, palpitations, and lightheadedness/syncope. Patient Active Problem List Diagnosis Dyspnea on exertion Mixed hyperlipidemia Abnormal barium swallow Bladder incontinence Dysphagia, oropharyngeal Esophagitis on biopsy HTN (hypertension) Incisional hernia BMI 35.0-35.9,adult Obstructive sleep apnea syndrome Rectal prolapse Restless legs syndrome Bipolar I disorder, most recent episode depressed (CMS/HCC) Chronic schizophrenia with acute exacerbation (CMS/HCC) Nausea Suicidal ideation Family History Problem Relation Name Age of Onset Hypertension Mother Hypertension Father Social History Tobacco Use Smoking status: Former Types: Cigarettes Smokeless tobacco: Never Substance Use Topics Alcohol use: Not Currently HPI Ebony is seen in follow-up. She is a 64-year-old woman who was evaluated on 05/08/2022 in [...] blood testing today showed significantly elevated LDL. Visit of 06/28/2024: She is seen in follow-up. She continues to have symptoms of shortness of breath on exertion and she reports that recently those have been worse. She has mild ankle edema on the sides of the ankle. No chest pain. No palpit (more content not included)... [facility] Progress note 12-15-2023 Note Date & Type Note Facility 12-15-2023 Note [place] [facility] - [facility] Subjective Ebony Medley is a 63 [...] She is a former smoker, quit in 2017. Additional medical history includes GE reflux disease, [...] is not ill-ap (more content not included)... [facility] Clinical Note 10-07-2022 Note Date & [...] good condition. CC: Nola Ramirez M.D. [facility] Clinical Note 09-02-2022 Note Date & Type [...] Allergies Social Hi (more content not included)... [facility] Comment on above: Result Comment: Elec tronically Signed By: CAIT LEHMAN, Ganga Salgado\shaheed\Date and Time Signed: 09/02/22 15:31 EDT Evaluation + Plan note Note Date & Type Note Facility Evaluation + Plan note No data available for this section [facility] Discharge instructions Note Date & Type Note Facility Hospital Discharge instructions No data available for this section [facility] Progress note Note Date & Type Note Facility Progress note No data available for this section [facility] Summary Purpose Family History No Family History Records FoundNo Family History Records FoundNo Family History Records FoundNo Family History Records FoundNo Family History Records Found Advance Directives No Advanced Directives Records FoundNo Advanced Directives Records FoundNo Advanced Directives Records FoundNo Advanced Directives Records FoundNo Advanced Directives Records Found Additional Source Comments INFORMATION SOURCE (unrecogn ized section and content) DATE CREATED AUTHOR 07/31/2022 [facility] DATE CREATED AUTHOR AUTHOR'S ORGANIZ ATION 10/14/2022 [facility] DATE CREATED AUTHOR AUTHOR'S ORGANIZ ATION 10/22/2022 [facility] DATE CREATED AUTHOR AUTHOR'S ORGANIZ ATION 07/01/2024 [facility] DATE CREATED AUTHOR AUTHOR'S ORGANIZ ATION 07/06/2024 [facility] Patient Care team informatio n (unrecognized section and content) Personnel Name: Nola Ramirez MD Address: Address: [address] [place] [address] Name: Toya Journeyman PatternmakerFlorence Personnel Name: James LEHMAN Nola Address: Address: [address] [place] [address] Name: Toya Journeyman Patternmaker, Amy FOR RECORDS PERTAINING TO PATIENTS WHO [...] BE BASED ON THE PRIMARY CLINICAL RECORDS. [facility] [employer] provides no warranty or guarantee of the accuracy or completeness of information in this document.
== END 2024-07-11 13:57 | disposition home or self-care (01) ==
LOC: CARD 13:56
PROVIDERS: PCP Family Medicine; Visit Provider Internal Medicine Interventional Cardiology
DX: R06.09 Other forms of dyspnea (principal)
CPT/HCPCS: 93306

== ENCOUNTER 2024-07-28 10:32 | Outpatient (OUT) | payer MEDICARE, SELFPAY ==
[2024-07-28 12:03] LABS: Estimated GFR (African America >60 (>=60); Estimated GFR (Non-African Ame 57 (>=60)
[2024-07-29 09:09] LABS: Lithium (Eskalith(R)), Serum 0.7 mmol/L (0.5-1.2)
== END 2024-07-28 10:33 | disposition home or self-care (01) ==
LOC: LAB 10:35
PROVIDERS: PCP Family Medicine
DX: Z79.899 Other long term (current) drug therapy (principal)
CPT/HCPCS: 36415; 80178; 82565; 84520

== ENCOUNTER 2024-10-10 08:25 | Outpatient (OUT) | payer MEDICARE, SELFPAY ==
--- OUTSIDE RECORDS SUMMARY | 2024-10-10 08:48 | XMS_ITS | CCD ---
Author Organization [facility] Care Team Providers Care Licensed Loan Officer Name Role Phone Nola Ramirez Primary Care Physician Unavailab Nolan Ron Attending Physician Unavailable NOLA RAMIREZ Referring Unavailable NOLA RAMIREZ Primary Care Unavailable JESSIE ARNETT V Attending Unavailable JESSIE ARNETT V Admitting Unavailable Nola Ramirez Primary Care Physician [phone] Florence Pittman Unavailable Unavailable JAMES, DR VACA [...] Date of Onset Reaction(s) Facility (1 source) 15411,00 Drug allergy (disorder) 1 [facility] Repository (1 source) oxyCODONE; Translations: [OxyCODONE Hydrochloride] Drug Allergy [facility] Repository (1 source) No Known Medication Allergies; Translations: [No Known Medication Allergies] Propensity to adverse reactions (disorder) [facility] Repository Medications Current Medications Medication Drug Class(es) [...] 300 mg by mouth once aarti y [place] Carbonate 300 MG Oral Daily June 13, 2019 Active Start: 06-13-2019 take 600 mg by mouth at bedtim e [place] Carbonate 600 MG Oral Bedtime June 13, 2019 Active Start: 06-01-2019 End: 06-13-2019 take 300 mg by mouth at bedtime [place] Carbonate 300 MG Oral Bedtime June 01, 2019 June 13, 2019 Discontinued Start: 08-15-2018 End: 06-01-2019 take 150 mg by mouth at bedtime [place] Carbonate 150 MG Oral Bedtime February 27, [...] 2 02-02-2014 Chronic Other 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 source) custodial (current) use of 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; Translations: [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] Onset: 2 Episodic [...] [OTHER FORMS OF DYSPNEA] Onset: 06-02-2022 Episodic Other screening for suspected conditions (not mental disorders or infectious disease) (10 sources) Imaging of gastrointestinal tract abnormal; Translations: [Abnormal findings on diagnostic imaging of other parts of digestive tract] Onset: 07-24-2022 Episodic Residual codes; unclassified (3 sources) Localized edema; Translations: [LOCALIZED EDEMA] Onset: 07-13-2022 Episodic Suicide and intentional self-inflicted injury (1 source) Suicidal thoughts Episodic Unclassified (1 source) CONTACT W/AND (SUSP) EXPOS COVID-19; Translations: [CONTACT W/AND (SUSP) EXPOS COVID-19] Onset: 08-11-2022 Results Test Name Value Interpretation Reference Range Facility 36on 07-18-2024 36 Regarding echo perfo rmed on 07/11/2024: MD Coral Meyers MA Her echo was ok, follow up in 1 year. [facility] Office Visiton 06-28-2024 Follow-up visit [id number] Julia Medley Nneka 1960 F Date Provider Department Center 06/28/2024 JESSIE RIVERA Family History Problem Relation Age of Onset Hypertension Mother Hypertension Father Family Status - Relation Status Age at Mother Father Level of Service:45903 RI OFFICE/OUTPATIENT ESTABLISHED MOD MDM 30 MIN Normal [facility] Office Visiton 12-15-2023 Follow-up visit [id number] Julia Medley joséreyna 1960 F Date Provider Department Center 12/15/2023 JESSIE RIVERA Family History Problem Relation Age of Onset Hypertension Mother Hypertension Father Family Status - Relation Status Age at Mother Father Level of Service:84366 RI OFFICE/OUTPATIENT ESTABLISHED MOD MDM 30 MIN Normal [facility] General Surgery Office/Clini c Noteon 10-21-2022 General [...] 2: Mother. Hypertension: Mother and Father. Normal [facility] Comment on above: Result Comment: Elec tronically Signed By: CAIT LEHMAN, Ganga Valencia\Date and Time Signed: 10/21/22 15:25 EST Operative Reporton 2 Operative Report [id number]#1.00CD:127 Normal [facility] Operative Reporton 2 Operative Report [id number]#1.00CD:127 [facility] Pathology Noteon 10-09-2022 Pathology Note [id number]#1.00CD:127 [facility] Lab Reportson 10-05-2022 Lab Reports [id number]#1.00CD:127 Normal [facility]on 09-22 SARS-CoV-2 (COVID-19) RNA ISABEL+probe Ql (Unsp spec) Not detected Normal NOT DETECTED [facility] Comment on above: Result Comment: This test is not yet approved or cleared by the [place] FDA. When there are no FDA-approved or cleared tests available, and other criteria are met, FDA can make tests available under an emergency access mechanism called an Emergency Use Authorization (EUA). The EUA for this test is supported by the Record Clerk Salesperson of Health and Human Service's (HHS's) declaration [...] consistent with SARS-CoV-2. Performed By: #### C [facility] #### [facility] [address] [place] [address] Dr. Osmar Cox Consent for Procedure/Surger yon 09-03-2022 Consent for Procedure/Surgery [id number]#1.00CD:127 Normal [facility] Ambulatory Visit Summaryon 1 Ambulatory Visit Summary [...] of Clostridium difficile infection Memory loss Normal [facility] Outside [facility] Correspo ndenceon 08-19-2022 Outside Hospital Correspondence [id number]#1.00CD:127 Normal [facility] RAD - CT Reporton 08-19-2022 RAD - CT Report [id number]#1.00CD:127 Normal [facility] RAD - MISCon 08-19-2022 RAD - MISC [id number]#1.00CD:127 Normal [facility] Physician Referralon 022 Physician Referral [id number]#1.00CD:127 Normal [facility] Covid-19 PCR ([facility])on 07-24 SARS-CoV-2 (COVID-19) RNA ISABEL+probe Ql (Unsp spec) Not detected Normal NOT DETECTED [facility] Comment on above: Result Comment: This test is not yet approved or cleared by the [place] FDA. When there are no FDA-approved or cleared tests available, and other criteria are met, FDA can make tests available under an emergency access mechanism called an Emergency Use Authorization (EUA). The EUA for this test is supported by the [place] of Health and Human Service's (HHS's) declaration [...] consistent with SARS-CoV-2. Performed By: #### C [facility] #### [facility] [address] [place] [address] Dr. Osmar Cox XR MODIFIED BARIUM SWALLOWon [...] NICOLAS KIRK Date: 2022-08-06 15:[address] [facility] Cardiovascular Lab Reporton 07-29-2022 Cardiovascular Lab Report [facility] Patient Name: Ebony Medley [facility] MR #: [id number] Physician: Jessie De Oliveira of Chuckie Arnett Medicine Service Date: 07/28/2022 Division of Birthdate: 1960 Cardiology Room #: [facility] Cardiovascular Services [place] [address] Cardiovascular Laboratory Report INDICATIONS: The patient is [...] signed informed consent. 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 The right neck area was prepped and draped in usual fashion. Micropuncture technique and ultrasound guidance were used for access in the right internal jugular vein. A 6-Portuguese x 11 cm sheath was placed. A 6-Portuguese Suarez catheter was used for right heart catheterization and measurement of pressures and calculation of cardiac output using the estimated Karina method. Suarez catheter was removed. Micropuncture technique and ultrasound guidance were used for access in the right radial artery. A 5-Portuguese x 11 cm slender sheath was advanced. Verapamil was given through the sheath and heparin was administered intravenously. Bilateral selective coronary angiography was then performed using 5-Portuguese JL 3.5 and JR5 diagnostic catheters. Catheters [...] Arnett M.D. Date Trans: 07/29/2022 03:31 A/gladys [id number] cc: Nola Ramirez M.D. [place] [id number] [facility] [address] Normal [facility] CBC AUTO DIFFon 07-24-2022 BASO # 0.1 103/ul Normal 0.0-0.1 [facility] Comment on above: Performed By: #### C BC #### [facility] [address] [place] [address] Dr. Osmar Cox Basophils/100 WBC (Bld) 0.9 % Normal 0.2-2.0 [facility] Comment on above: Performed By: #### C BC #### [facility] [address] [place] [address] Dr. Osmar Cox EO # 0.0 103/ul Normal 0.0-0.7 [facility] Comment on above: Performed By: #### C BC #### [facility] [address] [place] [address] Dr. Osmar Cox Eosinophils/100 WBC (Bld) 0.1 % Critically low 0.9-7.0 [facility] Comment on above: Performed By: #### C BC #### [facility] [address] [place] [address] Dr. Osmar Cox Erythrocyte distribution width (RBC) [Ratio] 15.4 % Critically high 11.0-15.0 [facility] Comment on above: Performed By: #### C BC #### [facility] [address] [place] [address] Dr. Osmar Cox Hematocrit (Bld) [Volume fraction] 40.7 % Normal 36.0-48.0 [facility] Comment on above: Performed By: #### C BC #### [facility] [address] [place] [address] Dr. Osmar Cox Hemoglobin (Bld) [Mass/Vol] 12.5 g/dL Normal 12.0-16.0 [facility] Comment on above: Performed By: #### C BC #### [facility] [address] [place] [address] Dr. Osmar Cox IG # 0.08 10e3/ul Critically high 0.00-0.03 [facility] Comment on above: Performed By: #### C BC #### [facility] [address] [place] [address] Dr. Osmar Cox IG % 0.7 % Critically high 0.0-0.5 [facility] Comment on above: Performed By: #### C BC #### [facility] [address] [place] [address] Dr. Osmar Cox LYMPH # 2.6 103/ul Normal 1.2-3.8 [facility] Comment on above: Performed By: #### C BC #### [facility] [address] [place] [address] Dr. Osmar Cox Lymphocytes/100 WBC (Bld) 22.8 % Normal 20.5-60.0 [facility] Comment on above: Performed By: #### C BC #### [facility] [address] [place] [address] Dr. Osmar Cox MANUAL DIFF REQ NO Normal [facility] Comment on above: Performed By: #### C BC #### [facility] [address] [place] [address] Dr. Osmar Cox MCH (RBC) [Entitic mass] 24.4 pg Critically low 26.7-34.0 [facility] Comment on above: Performed By: #### C BC #### [facility] [address] [place] [address] Dr. Osmar Cox MCHC (RBC) [Mass/Vol] 30.7 g/dL Normal 29.9-35.2 [facility] Comment on above: Performed By: #### C BC #### [facility] [address] [place] [address] Dr. Osmar Cox MCV (RBC) [Entitic vol] 79.3 fL Critically low 81.0-99.0 [facility] Comment on above: Performed By: #### C BC #### [facility] [address] [place] [address] Dr. Osmar Cox MONO # 1.0 103/ul Critically high 0.3-0.8 [facility] Comment on above: Performed By: #### C BC #### [facility] [address] [place] [address] Dr. Osmar Cox Monocytes/100 WBC (Bld) 8.9 % Normal 1.7-12.0 [facility] Comment on above: Performed By: #### C BC #### [facility] [address] [place] [address] Dr. Osmar Cox NEUT # 7.6 103/ul Critically high 1.4-6.5 [facility] Comment on above: Performed By: #### C BC #### [facility] [address] [place] [address] [address] Osmar Cox Neutrophils/100 WBC (Bld) 66.6 % Normal 43.0-75.0 [facility] Comment on above: Performed By: #### C BC #### [facility] [address] [place] [address] [address] Osmar Cox Platelet mean volume (Bld) [Entitic vol] 8.8 fL Critically low 9.5-13.5 [facility] Comment on above: Performed By: #### C BC #### [facility] [address] [place] [address] Dr. Osmar Cox PLT 438 103/ul Normal 150-450 [facility] Comment on above: Performed By: #### C BC #### [facility] [address] [place] [address] Dr. Osmar Cox RBC 5.13 106/ul Normal 4.20-5.40 [facility] Comment on above: Performed By: #### C BC #### [facility] [address] [place] [address] [address] Osmar Cox WBC 11.3 103/ul Critically high 4.0-11.0 [facility] Comment on above: Performed By: #### C BC #### [facility] [address] [place] [address] Dr. Osmar Cox Cov[facility]-19 PCR ([facility])on SARS-CoV-2 (COVID-19) RNA ISABEL+probe Ql (Unsp spec) Not detected Normal NOT DETECTED [facility] Comment on above: Result Comment: This test is not yet approved or cleared by the [place] FDA. When there are no FDA-approved or cleared tests available, and other criteria are met, FDA can make tests available under an emergency access mechanism called an Emergency Use Authorization (EUA). The EUA for this test is supported by the [place] of Health and Human Service's (HHS's) declaration [...] SARS-CoV-2. Performed By: #### C V[facility] #### [facility] [address] [place], [place] [address] CHEST HI RESOLUTIONon [...] CONSUELO TELLES Date: 2022-07-20 11:[address] [facility] BNPon 07-10-2022 Natriuretic peptide B (Bld) [Mass/Vol] 85.0 pg/mL Normal <=900.0 [facility] Comment on above: Performed By: #### B MEDICINAL PLANT PICKER, BMP, LIVER, LIPID ####[facility] [address] [place], [place] [address]ZiDr. Osmar Cox LIPID PROFILEon 07-10-2022 CHOL-HDL RATIO NORM SEE BELOW Normal [facility] Comment on above: Result Comment: 3.3 - 4.4 LOW RISK 4.4 - 7.1 AVERAGE RISK 7.1 - 11.0 MODERATE RISK >11.0 HIGH RISK Performed By: #### B MEDICINAL PLANT PICKER, BMP, LIVER, LIPID ####[facility] [address] [place] [id number]. Osmar Cox Cholesterol [Mass/Vol] 229 mg/dL Critically high <=[address] [facility] Comment on above: Performed By: #### B MEDICINAL PLANT PICKER, BMP, LIVER, LIPID ####[facility] [address] [place] [id number]. Lindalan Cox Cholesterol in HDL [Mass/Vol] 51 mg/dL Normal 40-60 [facility] Comment on above: Performed By: #### B MEDICINAL PLANT PICKER, BMP, LIVER, LIPID ####[facility] [address] [place] [id number]. Osmar Cox Cholesterol in LDL [Mass/Vol] 130.2 mg/dL Normal [facility] Comment on above: Performed By: #### B MEDICINAL PLANT PICKER, BMP, LIVER, LIPID ####[facility] [address] [place] [id number]. Osmar Cox Cholesterol.total/ Cholesterol in HDL [Mass ratio] 4.5 {ratio} Normal [facility] Comment on above: Performed By: #### B MEDICINAL PLANT PICKER, BMP, LIVER, LIPID ####[facility] [address] [place] [phone]. Lindalan Cox HDL NORMAL > or = 60 mg/dl - LO W CARDIOVASCULAR RISK <40 mg/dl - HIGH CARDIOVASCULAR RISK Normal [facility] Comment on above: Performed By: #### B MEDICINAL PLANT PICKER, BMP, LIVER, LIPID ####[facility] [address] [place] [id number]. Lindalan Cox LDL CALC NORMAL SEE BELOW Normal [facility] Comment on above: Result Comment: <100 mg/dl OPTIMAL 100 - 129 mg/dl NEAR OR ABOVE OPTIMAL 130 - 159 mg/dl BORDERLINE HIGH 160 - 189 mg/dl HIGH >190 mg/dl VERY HIGH Performed By: #### B MEDICINAL PLANT PICKER, BMP, LIVER, LIPID ####[facility] [address] [place] [address]Dr. Osmar Cox Triglyceride [Mass/Vol] 239 mg/dL Critically high <=150 [facility] Comment on above: Performed By: #### B MEDICINAL PLANT PICKER, BMP, LIVER, LIPID ####[facility] [address] [place] [address]Dr. Osmar Cox VLDL CALC 47.8 mg/dL Normal [facility] Comment on above: Performed By: #### B MEDICINAL PLANT PICKER, BMP, LIVER, LIPID ####[facility] [address] [place] [address]Dr. Osmar Cox LIVER PROFILEon 07-10-2022 Albumin [Mass/Vol] 3.5 g/dL Normal 3.4-5.0 [facility] Comment on above: Performed By: #### B MEDICINAL PLANT PICKER, BMP, LIVER, LIPID ####[facility] [address] [place] [address]Dr. Lindakenyon Cox Albumin/Globulin [Mass ratio] 1.0 {ratio} Normal [facility] Comment on above: Performed By: #### B MEDICINAL PLANT PICKER, BMP, LIVER, LIPID ####[facility] [address] [place] [address]Dr. Osmar Cox ALP [Catalytic activity/Vol] 183 U/L Critically high 46-116 [facility] Comment on above: Performed By: #### B MEDICIN[employer] PLANT PICKER, BMP, LIVER, LIPID ####[facility] [address] [place] [address]Dr. Osmar Cox ALT [Catalytic activity/Vol] 32 U/L Normal 14-59 [facility] Comment on above: Performed By: #### B MEDICINAL PLANT PICKER, BMP, LIVER, LIPID ####[facility] [address] [place] [address]Dr. Osmar Cox AST [Catalytic activity/Vol] 17 U/L Normal 15-37 [facility] Comment on above: Performed By: #### B MEDICINAL PLANT PICKER, BMP, LIVER, LIPID ####[facility] [address] [place] [address]Dr. Osmar Cox BILI, CONJUGATED 0.1 mg/dL Normal 0.0-0.2 [facility] Comment on above: Performed By: #### B MEDICINAL PLANT PICKER, BMP, LIVER, LIPID ####[facility] [address] [place] [address]Dr. Osmar Cox Bilirubin [Mass/Vol] 0.2 mg/dL Normal 0.2-1.0 [facility] Comment on above: Performed By: #### B MEDICINAL PLANT PICKER, BMP, LIVER, LIPID ####[facility] [address] [place] [address]Dr. Osmar Cox Globulin (S) [Mass/Vol] 3.5 g/dL Normal [facility] Comment on above: Performed By: #### B MEDICINAL PLANT PICKER, BMP, LIVER, LIPID ####[facility] [address] [place] [address]Dr. Osmar Cox Protein [Mass/Vol] 7.0 g/dL Normal 6.4-8.2 [facility] Comment on above: Performed By: #### B MEDICINAL PLANT PICKER, BMP, LIVER, LIPID ####[facility] [address] [place] [address]Dr. Osmar Cox PROF CHEM 8 (BAS METB)on Anion gap [Moles/Vol] 11.6 mmol/L Normal [facility] Comment on above: Performed By: #### B MEDICINAL PLANT PICKER, BMP, LIVER, LIPID #### [facility] [address] [place] [address] [address] Osmar Cox Calcium [Mass/Vol] 8.9 mg/dL Normal 8.5-10.1 [facility] Comment on above: Performed By: #### B MEDICINAL PLANT PICKER, BMP, LIVER, LIPID #### [facility] [address] [place] [address] [address] Osmar Cox Chloride [Moles/Vol] 104 mmol/L Normal 98-[address] [facility] Comment on above: Performed By: #### B MEDICINAL PLANT PICKER, BMP, LIVER, LIPID #### [facility] [address] [place] [address] [address] Osmar Cox CO2 [Moles/Vol] 26.0 mmol/L Normal 21.0-32.0 [facility] Comment on above: Performed By: #### B MEDICINAL PLANT PICKER, BMP, LIVER, LIPID #### [facility] [address] [place] [address] [address] Osmar Cox Creatinine [Mass/Vol] 0.80 mg/dL Normal 0.55-1.02 [facility] Comment on above: Performed By: #### B MEDICINAL PLANT PICKER, BMP, LIVER, LIPID #### [facility] [address] [place] [address] [address] Osmar Cox EGFR-AF ISRAELI >60 Normal >=60 [facility] Comment on above: Performed By: #### B MEDICINAL PLANT PICKER, BMP, LIVER, LIPID #### [facility] [address] [place] [address] [address] Osmar Cox EGFR-NON AF ISRAELI >60 Normal >=60 [facility] Comment on above: Performed By: #### B MEDICINAL PLANT PICKER, BMP, LIVER, LIPID #### [facility] [address] [place] [address] [address] Osmar Cox Glucose [Mass/Vol] 100 mg/dL Normal 74-106 [facility] Comment on above: Performed By: #### B MEDICINAL PLANT PICKER, BMP, LIVER, LIPID #### [facility] [address] [place] [address] [address] Osmar Cox Potassium [Moles/Vol] 4.6 mmol/L Normal 3.5-5.1 [facility] Comment on above: Performed By: #### B MEDICINAL PLANT PICKER, BMP, LIVER, LIPID #### [facility] [address] [place] [address] [address] Osmar Cox Sodium [Moles/Vol] 137 mmol/L Normal 136-145 [facility] Comment on above: Performed By: #### B MEDICINAL PLANT PICKER, BMP, LIVER, LIPID #### [facility] [address] [place] [address] [address] Osmar Cox Urea nitrogen [Mass/Vol] 20.0 mg/dL Critically high 7.0-18.0 [facility] Comment on above: Performed By: #### B MEDICINAL PLANT PICKER, BMP, LIVER, LIPID #### [facility] [address] [place] [address] [address] Osmar Cox Urea nitrogen/Creatinin e [Mass ratio] 25.0 mg/mg Normal [facility] Comment on above: Performed By: #### B MEDICINAL PLANT PICKER, BMP, LIVER, LIPID #### [facility] [address] [place] [address] [address] Osmar Cox XR CHEST 2 Von [...] CONSUELO TELLES Date: 2022-06-04 19:[address] [facility] HEMOGLOBINon 06-02-2022 Hemoglobin (Bld) [Mass/Vol] 12.1 g/dL Normal 12.0-16.0 [facility] Comment on above: Performed By: #### H GB #### [facility] [address] [place] [address] [address] Osmar Cox XR CHEST 2 Von [...] CONSUELO TELLES Date: 2022-06-02 19:[address] [facility] NM STRESS/REST MULTIon 05-06 NM STRESS/REST MULTI Patient: EBONY MEDLEY Exam Date: 05/06/2022 : 1960 Gender:F Ordering : DR NOLA RAMIREZ . Admission #: [id number] Family : Order #: [id number] CLICK HERE TO VIEW EXAM RADIOLOGY REPORT [...] Kirk M.D. on 05/07/2022 at 11:04 Normal [facility] ECHOCARDIO M/2D COMPLETEon 0 04-29-2022 ECHOCARDIO M/2D COMPLETE Patient: EBONY MEDLEY Exam Date: 04/29/2022 : 1960 Gender:F Ordering : DR NOLA RAMIREZ . Admission #: [id number] Family : Order #: [id number] CLICK HERE TO VIEW EXAM ECHOCARDIOGRAM REPORT [...] M.D. on 04/30/2022 at 20:[address] [facility] LITHIUMon 03-20-2022 [place] (Eskalith(R)), Serum 0.6 mmol/L Normal 0.5-1.[address] [facility] Comment on above: Result Comment: Plas ma concentration of 0.5 - 0.8 mmol/L are advised for long-term use; concentrations of up to 1.2 mmol/L may be necessary during acute treatment. Detection Limit = 0.1 <0.1 indicates None Detected Performed By: #### L ITHIUM ####[facility] [address] [place] [address]Dr. Osmar Cox LIPID PROFILEon 03-19-2022 CHOL-HDL RATIO NORM SEE BELOW Normal [facility] Comment on above: Result Comment: 3.3 - 4.4 LOW RISK 4.4 - 7.1 AVERAGE RISK 7.1 - 11.0 MODERATE RISK >11.0 HIGH RISK Performed By: #### T SH, T4, LIPID, CMP ####[facility] [address] [place] [address]Dr. Lindakenyon Cox Cholesterol [Mass/Vol] 269 mg/dL Critically high <=200 [facility] Comment on above: Performed By: #### T SH, T4, LIPID, CMP ####[facility] [address] [place], [place] [address]Dr. Osmar Cox Cholesterol in HDL [Mass/Vol] 48 mg/dL Normal 40-[address] [facility] Comment on above: Performed By: #### T SH, T4, LIPID, CMP ####[facility] [address] [place], [place] [address]Dr. Osmar Cox Cholesterol in LDL [Mass/Vol] 145.8 mg/dL Normal [facility] Comment on above: Performed By: #### T SH, T4, LIPID, CMP ####[facility] [address] [place], [place] [address]Dr. Osmar Cox Cholesterol.total/ Cholesterol in HDL [Mass ratio] 5.6 {ratio} Normal [facility] Comment on above: Performed By: #### T SH, T4, LIPID, CMP ####[facility] [address] [place], [place] [address]Dr. Osmar Cox HDL NORMAL > or = 60 mg/dl - LO W CARDIOVASCULAR RISK <40 mg/dl - HIGH CARDIOVASCULAR RISK Normal [facility] Comment on above: Performed By: #### T SH, T4, LIPID, CMP ####[facility] [address] [place], [place] [address]Dr. Osmar Cox LDL CALC NORMAL SEE BELOW Normal [facility] [facility] Comment on above: Result Comment: <100 mg/dl OPTIMAL 100 - 129 mg/dl NEAR OR ABOVE OPTIMAL 130 - 159 mg/dl BORDERLINE HIGH 160 - 189 mg/dl HIGH >190 mg/dl VERY HIGH Performed By: #### T SH, T4, LIPID, CMP ####[facility] [address] [place] [address]Dr. Osmar Cox Triglyceride [Mass/Vol] 376 mg/dL Critically high <=[address] [facility] Comment on above: Performed By: #### T SH, T4, LIPID, CMP ####[facility] [address] [place] [address]Dr. Osmar Cox VLDL CALC 75.2 mg/dL Normal [facility] Comment on above: Performed By: #### T SH, T4, LIPID, CMP ####[facility] [address] [place] [address]Dr. Osmar Cox PROF 14(COMP METB)on 022 Albumin [Mass/Vol] 3.4 g/dL Normal 3.4-5.0 [facility] Comment on above: Performed By: #### T SH, T4, LIPID, CMP ####[facility] [address] [place], [place] [address]Dr. Osmar Cox Albumin/Globulin [Mass ratio] 1.0 {ratio} Normal [facility] Comment on above: Performed By: #### T SH, T4, LIPID, CMP ####[facility] [address] [place] [address]Dr. Osmar Cox ALP [Catalytic activity/Vol] 118 U/L Critically high 46-[address] [facility] Comment on above: Performed By: #### T SH, T4, LIPID, CMP ####[facility] [address] [place] [address]Dr. Osmar Cox ALT [Catalytic activity/Vol] 17 U/L Normal 14-59 [facility] Comment on above: Performed By: #### T SH, T4, LIPID, CMP ####[facility] [address] [place] [address]Dr. Osmar Cox Anion gap [Moles/Vol] 11.3 mmol/L Normal [facility] Comment on above: Performed By: #### T SH, T4, LIPID, CMP ####[facility] [address] [place], [place] [address]Dr. Osmar Cox AST [Catalytic activity/Vol] 11 U/L Critically low 15-[address] [facility] Comment on above: Performed By: #### T SH, T4, LIPID, CMP ####[facility] [address] [place], [place] [address]Dr. Osmar Cox Bilirubin [Mass/Vol] 0.2 mg/dL Normal 0.2-1.[address] [facility] Comment on above: Performed By: #### T SH, T4, LIPID, CMP ####[facility] [address] [place], [place] [address]Dr. Osmar Cox Calcium [Mass/Vol] 8.7 mg/dL Normal 8.5-10.1 [facility] Comment on above: Performed By: #### T SH, T4, LIPID, CMP ####[facility] [address] [place], [place] [address]Dr. Osmar Cox Chloride [Moles/Vol] 106 mmol/L Normal 98-[address] [facility] Comment on above: Performed By: #### T SH, T4, LIPID, CMP ####[facility] [address] [place], [place] [address]Dr. Osmar Cox CO2 [Moles/Vol] 23.6 mmol/L Normal 21.0-32.0 [facility] Comment on above: Performed By: #### T SH, T4, LIPID, CMP ####[facility] [address] [place], [place] [address]Dr. Osmar Cox Creatinine [Mass/Vol] 0.86 mg/dL Normal 0.55-1.[address] [facility] Comment on above: Performed By: #### T SH, T4, LIPID, CMP ####[facility] [address] [place], [place] [address]Dr. Osmar Cox EGFR-AF ISRAELI >=60 Normal >=60 [facility] Comment on above: Performed By: #### T SH, T4, LIPID, CMP ####[facility] [address] [place] [address]Dr. Osmar Cox EGFR-NON AF ISRAELI >=60 Normal >=[address] [facility] Comment on above: Performed By: #### T SH, T4, LIPID, CMP ####[facility] [address] [place] [address]Dr. Osmar Cox Globulin (S) [Mass/Vol] 3.3 g/dL Normal [facility] Comment on above: Performed By: #### T SH, T4, LIPID, CMP ####[facility] [address] [place] [address]Dr. Osmar Cox Glucose [Mass/Vol] 104 mg/dL Normal 74-106 [facility] Comment on above: Performed By: #### T SH, T4, LIPID, CMP ####[facility] [address] [place], [place] [address]Dr. Osmar Cox Potassium [Moles/Vol] 4.9 mmol/L Normal 3.5-5.[address] [facility] Comment on above: Performed By: #### T SH, T4, LIPID, CMP ####[facility] [address] [place], [place] [address]Dr. Osmar Cox Protein [Mass/Vol] 6.7 g/dL Normal 6.1-8.2 [facility] Comment on above: Performed By: #### T SH, T4, LIPID, CMP ####[facility] [address] [place], [place] [address]Dr. Osmar Cox Sodium [Moles/Vol] 136 mmol/L Normal 136-145 [facility] Comment on above: Performed By: #### T SH, T4, LIPID, CMP ####[facility] [address] [place], [place] [address]Dr. Osmar Cox Urea nitrogen [Mass/Vol] 25.0 mg/dL Critically high 7.0-18.0 [facility] Comment on above: Performed By: #### T SH, T4, LIPID, CMP ####[facility] [address] [place] [id number]. Osmar Cox Urea nitrogen/Creatinin e [Mass ratio] 29.1 mg/mg Normal [facility] Comment on above: Performed By: #### T SH, T4, LIPID, CMP ####[facility] [address] [place], [place] [address]Wx. Osmar Cox T4on 03-19-2022 T4 [Mass/Vol] 7.60 ug/dL Normal 4.80-13.90 [facility] Comment on above: Performed By: #### T SH, T4, LIPID, CMP ####[facility] [address] [place], [place] [address]Eh. Osmar Cox TSHon 03-19-2022 TSH 1.427 uIU/mL Normal 0.470-4.680 [facility] Comment on above: Performed By: #### T SH, T4, LIPID, CMP ####[facility] [address] [place] [id number]. Osmar Cox TSH RANGE SEE BELOW Normal [facility] Comment on above: Result Comment: <0.3 4 UIU/ml HYPERTHYROID 0.34-5.60 UIU/ml EUTHYROID >5.60 UIU/ml HYPOTHYROID Performed By: #### T SH, T4, LIPID, CMP ####[facility] [address] [place] [id number]. Osmar Cox Laboratory Studieson 018 Albumin [Mass/Vol] 3.8 g/dL 3.2-5.5 [facility] Albumin/Globulin [Mass ratio] 1.5 {ratio} [facility] ALP [Catalytic activity/Vol] 75 U/L 32-92 [facility] ALT No additional P-5'-P [Catalytic activity/Vol] 16 U/L 10-60 [facility] AST [Catalytic activity/Vol] 18 U/L 10-42 [facility] Basophils (Bld) [#/Vol] 0.1 10*3/uL 0.0-0.2 [facility] Basophils/100 WBC (Bld) 1.0 % [facility] Bilirubin [Mass/Vol] 0.5 mg/dL 0.3-1.2 [facility] Calcium [Mass/Vol] 9.2 mg/dL 8.2-10.2 [facility] Carbamazepine [Mass/Vol] < 2.0 ug/mL Low 4.0-12.0 [facility] Chloride [Moles/Vol] 103 mmol/L 95-114 [facility] CK [Catalytic activity/Vol] 46 U/L 22-269 [facility] CK.MB [Mass/Vol] 1.0 ng/mL 0.6-6.3 [facility] CK.MB Calc [Catalytic fraction] 2.1 0.00-2.50 [facility] CO2 [Moles/Vol] 24.9 mmol/L 22.0-30.0 [facility] Creatinine [Mass/Vol] 0.58 mg/dL 0.44-1.03 [facility] Eosinophils (Bld) [#/Vol] 0.2 10*3/uL 0.0-0.45 [facility] Eosinophils/100 WBC (Bld) 3.1 % [facility] Erythrocyte distribution width (RBC) [Ratio] 13.5 % 11.9-15.3 [facility] Ethanol [Mass/Vol] mg/dL [facility] Ethanol [Mass/Vol] TNP [facility] Comment on above: Test not performed GFR/1.73 sq M predicted among blacks MDRD (S/P/Bld) [Vol rate/Area] mL/min/{1.73_m2} [facility] Comment on above: GFR estimated refere nce range: According to KDOQI guidelines, <60 ml/min/1.73m2 is sufficient to diagnose a patient with chronic kidney disease. GFR/1.73 sq M predicted among non-blacks MDRD (S/P/Bld) [Vol rate/Area] mL/min/{1.73_m2} [facility] Globulin (S) [Mass/Vol] 2.6 g/dL [facility] Glucose [Mass/Vol] 96 mg/dL 70-100 [facility] Comment on above: ADA recommended refe rence range Random Glucose Reference Range is dependent on time and content of last meal. Glucose of more than 200 mg/dL in a nonstressed, ambulatory subject supports the diagnosis of Diabetes Mellitus. Hematocrit (Bld) [Volume fraction] 38.7 % 34.0-46.4 [facility] Hemoglobin (Bld) [Mass/Vol] 12.8 g/dL 11.8-15.4 [facility] Lymphocytes (Bld) [#/Vol] 2.1 10*3/uL 1.00-4.8 [facility] Lymphocytes/100 WBC (Bld) 33.0 % [facility] MCH (RBC) [Entitic mass] 28.3 pg 24.7-34.3 [facility] MCHC (RBC) [Mass/Vol] 33.1 g/dL 32.0-35.0 [facility] MCV (RBC) [Entitic vol] 85.4 fL 80-100 [facility] Monocytes (Bld) [#/Vol] 0.5 10*3/uL 0.0-0.8 [facility] Monocytes/100 WBC (Bld) 7.2 % [facility] Neutrophils (Bld) [#/Vol] 3.5 10*3/uL 1.8-7.7 [facility] Neutrophils/100 WBC (Bld) 55.7 % [facility] Creatinine Clearance (Chem 87.4588 [facility] Platelet mean volume (Bld) [Entitic vol] 6.9 fL 6.3-10.7 [facility] Platelets (Bld) [#/Vol] 270 10*3/uL 150-450 [facility] Potassium [Moles/Vol] 4.3 mmol/L 3.5-5.1 [facility] Protein [Mass/Vol] 6.4 g/dL 6.1-7.9 [facility] RBC (Bld) [#/Vol] 4.52 10*6/uL 3.60-5.00 [facility] Sodium [Moles/Vol] 136 mmol/L 136-146 [facility] Troponin I.cardiac [Mass/Vol] ng/mL 0-0.02 [facility] Comment on above: [place] Cut off value > or equal to 0.03 ng/mL in conjunction with clinical conditions of myocardial infarction. (www.escardio.org/guidelines) Urea nitrogen [Mass/Vol] 18 mg/dL 9-23 [facility] Valproate [Mass/Vol] 52.6 ug/mL 50.0-100.0 [facility] Comment on above: Last dose: - WBC (Bld) [#/Vol] 6.3 10*3/uL 3.8-11.6 [facility] Amphetamines Ql (U) Negative [facility] Barbiturates Ql (U) Negative [facility] Benzodiazepines Ql (U) Negative [facility] Bilirubin Ql (U) Negative [facility] Cannabinoids Screen Ql (U) Negative [facility] Comment on above: These are unconfirme d results and should not be used for legal purposes. Drug Cut-Off Concentration: AMPH 1000 ng/mL ALFREDO 200 ng/mL JAXON 200 ng/mL COCM 300 ng/mL OP 300 ng/mL PCP 25 ng/mL THC 20 ng/mL Clarity Refractometry automated (U) Clear [facility] Cocaine Ql (U) Negative [facility] Color (U) Yellow [facility] Glucose Auto test strip (U) [Mass/Vol] Normal mg/dL [facility] Hemoglobin Auto test strip Ql (U) Negative [facility] Ketones (U) [Mass/Vol] Negative [facility] Leukocyte esterase Auto test strip Ql (U) Negative [facility] Nitrite Ql (U) Negative [facility] Opiates Ql (U) Negative [facility] pH (U) 6.5 [pH] 5.0-9.0 [facility] Phencyclidine Ql (U) Negative [facility] Protein (U) [Mass/Vol] Negative [facility] Specific gravity (U) [Rel density] 1.018 1.001-1.030 [facility] Urobilinogen (U) [Mass/Vol] Normal mg/dL [facility] Vital Signs Date Time Vital Sign Value Performing Clinician Facility 09-02-2022 13:44-0400 Blood Pressure Location Ganga ZUNIAGAn [facility] 09-02-2022 13:44-0400 Diastolic blood pressure 82 mm[Hg] Ganga NILL [facility] 09-02-2022 13:44-0400 Heart rate 72 /min Ganga NILL [facility] 09-02-2022 13:44-0400 Respiratory rate 16 /min Ganga NILL [facility] [place] 09-02-2022 13:44-0400 Systolic blood pressure 120 mm[Hg] Ganga NILL [facility] 03-07-2019 15:00-0400 Body Temperature 97.8 [degF] [facility] 03-07-2019 15:00-0400 BP Diastolic 88 mm[Hg] [facility] 03-07-2019 15:00-0400 BP Systolic 158 mm[Hg] [facility] 03-07-2019 15:00-0400 Pulse (Heart Rate) 78 /min [facility] 03-07-2019 15:00-0400 Pulse Oximetry 95 % [facility] 03-07-2019 15:00-0400 Respiratory Rate 16 /min [facility] Body weight [facility] NEGATED: Highlighted row BMI (Body Mass Index) [facility] NEGATED: Highlighted row Height [facility] Encounters Encounter Date Encounter Type Care Provider Facility Start: 10-04-2024 ambulatory Dereck De La Rosa acility:[facility] Start: 06-28-2024 End: 06-29-2024 ambulatory [facility] Start: 12-15-2023 End: 12-15-2023 ambulatory [facility] Start: 10-21-2022 End: 10-22-2022 ambulatory Ganga PEARCE Facility:[facility] Start: 10-21-2022 End: 10-21-2022 Patient encounter procedure Ganga PEARCE [facility] [place] Start: 10-08-2022 Encounter for preprocedural laboratory examination DR GANGA PEARCE [facility] Start: 10-07-2022 End: 10-08-[address] GANGA PEARCE Facility:[facility] Start: 10-03-2022 End: 10-04-[address] GANGA PEARCE Facility:[facility] Start: 10-03-2022 End: 10-04-2022 Encounter for preprocedural laboratory examination DR GANGA PEARCE Facility:[facility] Start: 09-02-2022 End: 09-03-2022 ambulatory Ganga PEARCE Facility: [facility] Start: 09-02-2022 End: 09-02-2022 Patient encounter procedure Ganga PEARCE [facility] [place] Start: 08-11-2022 End: 08-11-[address] NOLA RAMIREZ Facility:[facility] Start: 08-06-2022 End: 08-07-[address] Nicolas Kirk Facility:[facility] Start: 07-28-2022 End: 07-29-2022 ambulatory NOLA RAMIREZ Facility:[facility] Start: 07-24-2022 End: 07-25-2022 ambulatory [...] Start: 03-19-2022 End: 03-20-[address] [facility] Facility:[facility] Start: 03-15-2019 End: 03-15-2019 Patient encounter procedure Nola ramses [facility] Start: 03-07-2019 End: 03-07-2019 Admission to day surgery Nola Ramirez [facility] Start: 02-01-2018 End: 02-01-2018 Emergency department patient visit Nola ramses [facility] Start: 06-07-2014 End: 06-12-2014 Evaluation and management of inpatient [facility] Start: 06-17-2011 End: 06-20-2011 Evaluation and management of inpatient [facility] Start: 05-01-2011 End: 05-18-2011 Evaluation and management of inpatient [facility] Start: 05-27-2010 End: 06-26-2010 Discharged Recurring [facility] Start: 05-22-2010 End: 06-21-2010 Discharged Recurring [facility] Start: 04-22-2010 End: 05-21-2010 Discharged Recurring [facility] Start: 03-22-2010 End: 04-21-2010 [facility] Start: 02-20-2010 End: 03-21-2010 Discharged Recurring [facility] Start: 01-20-2010 End: 02-19-2010 Discharged Recurring [facility] Start: 01-20-2010 End: 02-19-2010 Discharged Recurring [facility] Start: 01-16-2010 End: 01-19-2010 Discharged Recurring Nola Hoy [facility] Start: 12-23-2009 End: 01-19-2010 Discharged Recurring Nola Hoy [facility] Start: 11-23-2009 End: 12-22-2009 Discharged Recurring Nola ramses [facility] Start: 11-22-2009 End: 01-20-2010 Discharged Recurring Nola y [facility] Start: 10-22-2009 End: 11-21-2009 Discharged Recurring Nola Hoy [facility] Start: 10-15-2009 End: 11-22-2009 Discharged Recurring Nola [facility] Start: 09-22-2009 End: 10-21-2009 Discharged Recurring N[facility] Start: 08-22-2009 End: 09-21-2009 Discharged Recurring Nola Hoy [facility] Start: 08-06-2009 End: 08-21-2009 Discharged Recurring Nola y [facility] Start: 07-02-2009 End: 07-22-2009 Discharged Recurring Nola [facility] Start: 06-04-2009 End: 06-21-2009 Discharged Recurring Nola [facility] Start: 04-22-2009 End: 05-21-2009 Discharged Recurring Nola y [facility] Start: 03-22-2009 End: 04-21-2009 Discharged Recurring Nola [facility] Start: 02-20-2009 End: 03-21-2009 Discharged Recurring Nola [facility] Start: 02-10-2009 End: 02-10-2009 Emergency department patient visit Nola Hoy [facility] Start: 01-21-2009 End: 02-19-2009 Discharged Recurring Nola James [facility] Start: 12-24-2008 End: 01-19-2009 Discharged Recurring Nola Hoy [facility] Start: 11-23-2008 End: 12-22-2008 Discharged Recurring Nola Hoy [facility] Start: 10-22-2008 End: 11-21-2008 Discharged Recurring Nola Hoy [facility] Start: 09-22-2008 End: 10-21-2008 Discharged Recurring Nola ramses [facility] Start: 08-22-2008 End: 09-21-2008 Discharged Recurring Nola Hoy [facility] Start: 07-24-2008 End: 08-21-2008 Discharged Recurring Nola Hoy [facility] Start: 07-02-2008 End: 07-05-2008 Evaluation and management of inpatient Nola ramses [facility] Start: 06-22-2008 End: 07-22-2008 Discharged Recurring Nola Hoy [facility] Start: 06-05-2008 End: 06-14-2008 Evaluation and management of inpatient Nola ramses [facility] Start: 05-29-2008 End: 06-21-2008 Discharged Recurring Nola ramses [facility] Start: 04-24-2008 End: 05-21-2008 Discharged Recurring N[facility] Start: 03-22-2008 End: 04-21-2008 Discharged Recurring Nola Hoy [facility] Start: 02-21-2008 End: 03-21-2008 Discharged Recurring Nola Ramirez [facility] Start: 02-14-2008 End: 02-20-2008 Discharged Recurring Nola Ramirez [facility] Start: 12-23-2007 End: 01-20-2008 Discharged Recurring Nola Ramirez [facility] Start: 12-20-2007 End: 12-23-2007 Evaluation and management of inpatient Nola Ramirez [facility] Start: 11-22-2007 End: 12-22-2007 Discharged Recurring Nola Ramirez [facility] Start: 10-22-2007 End: 11-21-2007 Discharged Recurring Nola Ramirez [facility] Start: 09-22-2007 End: 10-21-2007 Discharged Recurring Nola Ramirez [facility] Start: 08-22-2007 End: 09-21-2007 Discharged Recurring Nola Ramirez [facility] Start: 07-23-2007 End: 08-21-2007 Discharged Recurring Nola Ramirez [facility] Start: 06-22-2007 End: 07-22-2007 Discharged Recurring Nola Ramirez [facility] Start: 05-22-2007 End: 06-21-2007 Discharged Recurring Nola ramses [facility] Start: 04-28-2007 End: 04-28-2007 Emergency department patient visit Nola Ramirez [facility] Start: 04-28-2007 End: 04-28-2007 Patient encounter procedure Nola armses [facility] Start: 04-28-2007 End: 05-21-2007 Discharged Recurring Nola [facility] Start: 03-01-2002 End: 03-21-2002 Discharged Recurring Onla [facility] Start: 03-01-2002 End: 03-04-2002 [facility] Start: 03-24-2001 End: 03-24-2001 Discharged Recurring Nola [facility] Start: 03-24-2001 End: 04-04-2001 [facility] Start: 09-27-1996 End: 09-30-1996 Evaluation and management of inpatient [facility] Start: 08-19-1995 End: 08-19-1995 [facility] Start: 09-27-1993 End: 09-27-1993 Patient encounter procedure [facility] Procedures Date Procedure Procedure Detail Performing Clinician Start: 10-07-2022 Esophagogastroduodenoscopy Ganga PEARCE Start: 07-28-2022 Cardiac catheterization Ganga PEARCE Start: 12-05-2020 Hernia repair Ganga PEARCE Start: 03-07-2019 Arthroscopy of shoulder A Olexa Nolan Start: 11-22-1996 Abdominal hysterectomy Ganga PEARCE Arthroscopy of shoulder Palmer ael CAIT Cholecystectomy Ganga PEARCE Ectopic (disorder) Ganga PEARCE Exploratory laparotomy Yrn sherri PEARCE History of subtotal thyroidectomy Ganga NILL History of tonsillectomy Chuy roberson NILL Partial resection of colon Cali garcia NILL Payers Date Payer Category Payer Unknown [id number] 2023 Self-pay 1960 Medicaid [id number] 1960 Medicare [id number] 1960 Self-pay [id number] 1959 Unknown [id number] 2.16.8 [id number] 1959 Unknown [id number] 2.16.84 0.1.724798.3.579.2.593 1959 Unknown [id number] 2.16.84 0.1.567302.3.579.2.593 1959 Unknown [id number] 2.16.84 0.1.474884.3.579.2.593 1959 Unknown [id number] 2.16.84 0.1.461732.3.579.2.593 1959 Unknown [id number] 2.16.84 0.1.032440.3.579.2.593 1959 Unknown [id number] 2.16.84 0.1.537396.3.579.2.593 1959 Unknown [id number] 2.16.84 0.1.638748.3.579.2.593 1959 Unknown [id number] 2.16.84 0.1.670175.3.579.2.593 1959 Unknown [id number] 2.16.84 0.1.271369.3.579.2.593 1959 Unknown [id number] 2.16.84 0.1.316127.3.579.2.593 1959 Unknown [id number] 2.16.84 0.1.343332.3.579.2.593 1959 Unknown [id number] 2.16.84 0.1.331511.3.579.2.593 1959 Unknown [id number] 2.16.84 0.1.397837.3.579.2.593 1959 Unknown [id number] 2.16.84 0.1.291079.3.579.2.593 1959 Unknown [id number] 2.16.84 0.1.916226.3.579.2.593 1959 Unknown [id number] 2.16.8 40.1.102614.3.579.2.727 1959 Unknown [id number] 2.16.8 40.1.914815.3.579.2.727 1959 Unknown [id number] 2.16.8 40.1.076346.3.579.2.727 Medicare [id number] Unknown [id number] 2.16.8 40.1.400806.3.579.2.531 Social History Date Type Detail Facility Start: 09-02-2022 Tobacco smoking status Ex-smoker (fi nding) [facility] Tobacco smoking status Never Gener al [facility] Sex Assigned At Female [facility] Medical Equipment Procedure Code Equipment Code Equipment Origin al Text Equipment Identifier Dates HERNIA REPAIR, R OBOT ASSISTED CAIT LEHMAN, Ganga Salgado 12/05/20 Non Biological Abdomen {[id number] [facility] Start: 12-05-2020 Functional Status Date Assessment Result Facility 09-02-2022 Functional Status N/A General Joe [facility] Progress note 06-28-2024 Note Date & Type Note Facility 06-28-2024 Note [facility] Subjective Ebony Medley is a 64 y.o. year old [...] pain. No palpit (more content not included)... [facility] Progress note 12-15-2023 Note Date & Type Note Facility 12-15-2023 Note [facility] Subjective Ebony Medley is a [...] is not ill-ap (more content not included)... [facility] Clinical Note 10-07-2022 Note Date & Type [...] good condition. CC: Nola Ramirez M.D. [facility] [facility] Clinical Note 09-02-2022 Note Date & [...] Allergies Social Hi (more content not included)... [facility] Comment on above: Result Comment: Elec tronically Signed By: CAIT LEHMAN, Ganga Valencia\Date and Time Signed: 09/02/22 15:31 EDT Evaluation + Plan note Note Date & Type Note Facility Evaluation + Plan note No data available for this section [facility] Discharge instructions Note Date & Type Note Facility Hospital Discharge instructions No data available for this section [facility] note Note Date & Type Note Facility Progress note No data available for this section General Surgery [facility] Summary Purpose Family History No Family History Records FoundNo Family History Records FoundNo Family History Records FoundNo Family History Records FoundNo Family History Records Found Advance Directives No Advanced Directives Records FoundNo Advanced Directives Records FoundNo Advanced Directives Records FoundNo Advanced Directives Records FoundNo Advanced Directives Records Found Additional Source Comments INFORMATION SOURCE (unrecogn ized section and content) DATE CREATED AUTHOR 07/31/2022 [facility] DATE CREATED AUTHOR AUTHOR'S ORGANIZ ATION 10/14/2022 [facility] DATE CREATED AUTHOR AUTHOR'S ORGANIZ ATION 10/22/2022 [facility] DATE CREATED AUTHOR AUTHOR'S ORGANIZ ATION 07/19/2024 [facility] DATE CREATED AUTHOR AUTHOR'S ORGANIZ ATION 10/06/2024 [facility] Patient Care team informatio n (unrecognized section and content) Personnel Name: Nola Ramirez MD Address: Address: [address] [place] [address] Name: Toya Program EvaluatorFlorence Personnel Name: Nola Ramirez MD Address: Address: [address] [place] [address] Name: Toya Program Evaluator, Amy FOR RECORDS PERTAINING TO PATIENTS WHO [...] ON THE PRIMARY CLINICAL RECORDS. [facility] [email or web address] provides no warranty or guarantee of the accuracy or completeness of information in this document.
[2024-10-10 10:01] LABS: Estimated GFR (African America >60 (>=60 mL/min/1.73m^2); Estimated GFR (Non-African Ame 60 (>=60 mL/min/1.73m^2)
[2024-10-11 05:08] LABS: Lithium (Eskalith(R)), Serum 0.6 mmol/L (0.5-1.2)
== END 2024-10-10 08:26 | disposition home or self-care (01) ==
LOC: LAB 08:26
PROVIDERS: PCP Family Medicine
DX: Z79.899 Other long term (current) drug therapy (principal)
CPT/HCPCS: 36415; 80178; 82565; 84520

== ENCOUNTER 2025-02-09 09:02 | Outpatient (OUT) | payer MEDICARE, SELFPAY ==
[2025-02-09 09:19] LABS: Basophils Absolute Auto 0.1 10^3/uL (0.0-0.1); Basophils Percent Auto 0.8 % (0.2-2.0); Eosinophils Absolute Auto 0.1 10^3/uL (0.0-0.7); Eosinophils Percent Auto 0.4 % (0.9-7.0); Hematocrit 44.9 % (36.0-48.0); Hemoglobin 14.6 g/dL (12.0-16.0); Immature Granulocytes Abs Auto 0.19 10^3/uL (0.00-0.03); Immature Granulocytes Pct Auto 1.3 % (0.0-0.5); Lymphocytes Absolute Auto 3.1 10^3/uL (1.2-3.8); Lymphocytes Percent Auto 21.8 % (20.5-60.0); Mean Corpuscular HGB Conc 32.5 g/dL (29.9-35.2); Mean Corpuscular Hemoglobin 27.2 pg (26.7-34.0); Mean Corpuscular Volume 83.6 fL (81.0-99.0); Mean Platelet Volume 8.3 fL (9.5-13.5); Monocytes Percent Auto 6.8 % (1.7-12.0); Neutrophils Absolute Auto 9.8 10^3/uL (1.4-6.5); Neutrophils Percent Auto 68.9 % (43.0-75.0); Platelet Count 440 10^3/uL (150-450); Red Blood Count 5.37 10^6/uL (4.20-5.40); Red Cell Distribution Width 14.7 % (11.0-15.0); White Blood Count 14.3 10^3/uL (4.0-11.0)
--- OUTSIDE RECORDS SUMMARY | 2025-02-09 09:20 | XMS_ITS | CCD ---
Author Organization [facility] Care Team Providers Care Content Development Specialist Name Role Phone Nola Ramirez Primary Care [...] Date of Onset Reaction(s) Facility (1 source) 92356,00 Drug allergy (disorder) 1 [facility] Repository (1 source) oxyCODONE; Translations: [OxyCODONE Hydrochloride] Drug Allergy [facility] Repository (1 source) No Known Medication Allergies; Translations: [No Known Medication Allergies] Propensity to adverse reactions (disorder) [facility] Repository Medications Current Medications Medication Drug [...] 300 mg by mouth once aarti y Ensign Carbonate 300 MG Oral Daily June 13, 2019 Active Start: 06-13-2019 take 600 mg by mouth at bedtim e Ensign Carbonate 600 MG Oral Bedtime June 13, 2019 Active Start: 06-01-2019 End: 06-13-2019 take 300 mg by mouth at bedtime Ensign Carbonate 300 MG Oral Bedtime June 01, 2019 June 13, 2019 Discontinued Start: 08-15-2018 End: 06-01-2019 take 150 mg by mouth at bedtime Ensign Carbonate 150 MG Oral Bedtime February 27, [...] 2 02-02-2014 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 [facility] Office Visiton 06-28-2024 Follow-up visit [id number] Julia Medley Nneka 1960 F Date Provider Department Center 06/28/2024 JESSIE RIVERA Family History Problem Relation Age of Onset Hypertension Mother Hypertension Father Family Status - Relation Status Age at Mother Father Level of Service:27149 [place] OFFICE/OUTPATIENT ESTABLISHED MOD MDM 30 MIN Normal [facility] Office Visiton 12-15-2023 Follow-up visit [id number] Julia Medley joséreyna 1960 F Date Provider Department Center 12/15/2023 JESSIE RIVERA Family History Problem Relation Age of Onset Hypertension Mother Hypertension Father Family Status - Relation Status Age at Mother Father Level of Service:03622 [place] OFFICE/OUTPATIENT ESTABLISHED MOD MDM 30 MIN Normal [facility] General Surgery Office/Clini c Noteon 10-21-2022 General [...] 2: Mother. Hypertension: Mother and Father. Normal [facility] Comment on above: Result Comment: Elec tronically Signed By: CAIT LEHMAN, Ganga Valencia\Date and Time Signed: 10/21/22 15:25 EST Operative Reporton 2 Operative Report [id number]#1.00CD:127 Normal [facility] Operative Reporton 2 Operative Report [id number]#1.00CD:127 [facility] Pathology Noteon 10-09-2022 Pathology Note [id number]#1.00CD:127 [facility] Lab Reportson 10-05-2022 Lab Reports [id number]#1.00CD:127 Normal [facility]on 09-22 SARS-CoV-2 (COVID-19) RNA ISABEL+probe Ql (Unsp spec) Not detected Normal NOT DETECTED [facility] Comment on above: Result Comment: This test is not yet approved or cleared by the [place] FDA. When there are no FDA-approved or cleared tests available, and other criteria are met, FDA can make tests available under an emergency access mechanism called an Emergency Use Authorization (EUA). The EUA for this test is supported by the [place] of Health and Human Service's (HHS's) declaration [...] [facility] #### [facility] Laboratory [address] [place] [address] Dr. Osmar Cox Consent for Procedure/Surger yon 09-03-2022 Consent for Procedure/Surgery [id number]#1.00CD:127 Normal [facility] Ambulatory Visit Summaryon 1 Ambulatory Visit [...] of Clostridium difficile infection Memory loss Normal [facility] Outside [facility] Correspo ndenceon 08-19-2022 Outside Hospital Correspondence [id number]#1.00CD:127 Normal [facility] RAD - CT Reporton 08-19-2022 RAD - CT Report [id number]#1.00CD:127 Normal [facility] RAD - MISCon 08-19-2022 RAD - MISC [id number]#1.00CD:127 Normal [facility] Physician Referralon 022 Physician Referral [id number]#1.00CD:127 Normal [facility]19 [facility]on 07-24 SARS-CoV-2 (COVID-19) RNA ISABEL+probe Ql (Unsp spec) Not detected Normal NOT DETECTED [facility] Comment on above: Result Comment: This test is not yet approved or cleared by the [place] FDA. When there are no FDA-approved or cleared tests available, and other criteria are met, FDA can make tests available under an emergency access mechanism called an Emergency Use Authorization (EUA). The EUA for this test is supported by the [place] of Health and Human Service's (HHS's) declaration [...] [facility] #### [facility] [address] [place] [address] Dr. Osmar Cox XR MODIFIED BARIUM SWALLOWon [...] NICOLAS KIRK Date: 2022-08-06 15:18 Normal [facility] Cardiovascular Lab Reporton 07-29-2022 Cardiovascular Lab Report [facility] Patient Name: Ebony Medley [facility] MR #: [id number] Physician: Jessie De Oliveira of [facility] Medicine Service Date: 07/28/2022 Division of Birthdate: 1960 Cardiology Room #: [facility] Cardiovascular Services [place] [address] Cardiovascular Laboratory Report INDICATIONS: The patient is [...] signed informed consent. 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 The right neck area was prepped and draped in usual fashion. Micropuncture technique and ultrasound guidance were used for access in the right internal jugular vein. A 6-Guamanian x 11 cm sheath was placed. A 6-Guamanian Suarez catheter was used for right heart catheterization and measurement of pressures and calculation of cardiac output using the estimated Karina method. Suarez catheter was removed. Micropuncture technique and ultrasound guidance were used for access in the right radial artery. A 5-Guamanian x 11 cm slender sheath was advanced. Verapamil was given through the sheath and heparin was administered intravenously. Bilateral selective coronary angiography was then performed using 5-Guamanian JL 3.5 and JR5 diagnostic catheters. Catheters [...] Arnett M.D. Date Trans: 07/29/2022 03:31 A/gladys [id number] cc: Nola Ramirez M.D. [place] [address] [facility] [address] Normal [facility] CBC AUTO DIFFon 07-24-2022 BASO # 0.1 103/ul Normal 0.0-0.1 [facility] Comment on above: Performed By: #### C BC #### [facility] [address] [place] [address] Dr. Osmar Cox Basophils/100 WBC (Bld) 0.9 % Normal 0.2-2.0 [facility] Comment on above: Performed By: #### C BC #### [facility] [address] [place] [address] Dr. Osmar Cox EO # 0.0 103/ul Normal 0.0-0.7 [facility] Comment on above: Performed By: #### C BC #### [facility] [address] [place] [address] Dr. Osmar Cox Eosinophils/100 WBC (Bld) 0.1 % Critically low 0.9-7.0 [facility] Comment on above: Performed By: #### C BC #### [facility] [address] [place] [address] Dr. Osmar Cox Erythrocyte distribution width (RBC) [Ratio] 15.4 % Critically high 11.0-15.0 [facility] Comment on above: Performed By: #### C BC #### [facility] [address] [place] [address] Dr. Osmar Cox Hematocrit (Bld) [Volume fraction] 40.7 % Normal 36.0-48.0 [facility] Comment on above: Performed By: #### C BC #### [facility] [address] [place] [address] Dr. Osmar Cox Hemoglobin (Bld) [Mass/Vol] 12.5 g/dL Normal 12.0-16.0 [facility] Comment on above: Performed By: #### C BC #### [facility] [address] [place] [address] Dr. Osmar Cox IG # 0.08 10e3/ul Critically high 0.00-0.03 [facility] Comment on above: Performed By: #### C BC #### [facility] [address] [place] [address] Dr. Osmar Cox IG % 0.7 % Critically high 0.0-0.5 [facility] Comment on above: Performed By: #### C BC #### [facility] [address] [place] [address] Dr. Osmar Cox LYMPH # 2.6 103/ul Normal 1.2-3.8 [facility] Comment on above: Performed By: #### C BC #### [facility] [address] [place] [address] Dr. Osmar Cox Lymphocytes/100 WBC (Bld) 22.8 % Normal 20.5-60.0 [facility] Comment on above: Performed By: #### C BC #### [facility] [address] [place] [address] Dr. Osmar Cox MANUAL DIFF REQ NO Normal [facility] Comment on above: Performed By: #### C BC #### [facility] [address] [place] [address] Dr. Osmar Cox MCH (RBC) [Entitic mass] 24.4 pg Critically low 26.7-34.0 [facility] Comment on above: Performed By: #### C BC #### [facility] [address] [place] [address] Dr. Osmar Cox MCHC (RBC) [Mass/Vol] 30.7 g/dL Normal 29.9-35.2 [facility] Comment on above: Performed By: #### C BC #### [facility] [address] [place] [address] Dr. Osmar Cox MCV (RBC) [Entitic vol] 79.3 fL Critically low 81.0-99.0 [facility] Comment on above: Performed By: #### C BC #### [facility] [address] [place] [address] Dr. Osmar Cox MONO # 1.0 103/ul Critically high 0.3-0.8 [facility] Comment on above: Performed By: #### C BC #### [facility] [address] [place] [address] Dr. Osmar Cox Monocytes/100 WBC (Bld) 8.9 % Normal 1.7-12.0 [facility] Comment on above: Performed By: #### C BC #### [facility] [address] [place] [address] Dr. Osmar Cox NEUT # 7.6 103/ul Critically high 1.4-6.5 [facility] Comment on above: Performed By: #### C BC #### [facility] [address] [place] [address] [address] Osmar Cox Neutrophils/100 WBC (Bld) 66.6 % Normal 43.0-75.0 [facility] Comment on above: Performed By: #### C BC #### [facility] [address] [place] [address] [address] Osmar Cox Platelet mean volume (Bld) [Entitic vol] 8.8 fL Critically low 9.5-13.5 [facility] Comment on above: Performed By: #### C BC #### [facility] [address] [place] [address] Dr. Osmar Cox PLT 438 103/ul Normal 150-450 [facility] Comment on above: Performed By: #### C BC #### [facility] [address] [place] [address] Dr. Osmar Cox RBC 5.13 106/ul Normal 4.20-5.40 [facility] Comment on above: Performed By: #### C BC #### [facility] [address] [place] [address] [address] Osmar Cox WBC 11.3 103/ul Critically high 4.0-11.0 [facility] Comment on above: Performed By: #### C BC #### [facility] [address] [place] [address] Dr. Osmar Cox Cov[facility]-19 PCR [facility]on SARS-CoV-2 (COVID-19) RNA ISABEL+probe Ql (Unsp spec) Not detected Normal NOT DETECTED [facility] Comment on above: Result Comment: This test is not yet approved or cleared by the [place] FDA. When there are no FDA-approved or cleared tests available, and other criteria are met, FDA can make tests available under an emergency access mechanism called an Emergency Use Authorization (EUA). The EUA for this test is supported by the [employer] of Health and Human Service's (HHS's) declaration [...] SARS-CoV-2. Performed By: #### C VDTBH #### [facility] [address] [place], [place] [address] CHEST HI RESOLUTIONon [...] CONSUELO TELLES Date: 2022-07-20 11:51 Normal [facility] BNPon 07-10-2022 Natriuretic peptide B (Bld) [Mass/Vol] 85.0 pg/mL Normal <=900.0 [facility] Comment on above: Performed By: #### B ROUTE CONTRACTOR, BMP, LIVER, LIPID ####[facility] [address] [place], [place] [address]JbDr. Osmar Cox LIPID PROFILEon 07-10-2022 CHOL-HDL RATIO NORM SEE BELOW Normal [facility] Comment on above: Result Comment: 3.3 - 4.4 LOW RISK 4.4 - 7.1 AVERAGE RISK 7.1 - 11.0 MODERATE RISK >11.0 HIGH RISK Performed By: #### B ROUTE CONTRACTOR, BMP, LIVER, LIPID ####[facility] [address] [place] [address]Dr. Osmar Cox Cholesterol [Mass/Vol] 229 mg/dL Critically high <=200 [facility] Comment on above: Performed By: #### B ROUTE CONTRACTOR, BMP, LIVER, LIPID ####[facility] [address] [place] [address]Dr. Lindalan Cox Cholesterol in HDL [Mass/Vol] 51 mg/dL Normal 40-60 [facility] Comment on above: Performed By: #### B ROUTE CONTRACTOR, BMP, LIVER, LIPID ####[facility] [address] [place] [address]Dr. Osmar Cox Cholesterol in LDL [Mass/Vol] 130.2 mg/dL Normal [facility] Comment on above: Performed By: #### B ROUTE CONTRACTOR, BMP, LIVER, LIPID ####[facility] [address] [place] [address]Dr. Osmar Cox Cholesterol.total/ Cholesterol in HDL [Mass ratio] 4.5 {ratio} Normal [facility] Comment on above: Performed By: #### B ROUTE CONTRACTOR, BMP, LIVER, LIPID ####[facility] [address] [place] [address]Dr. Lindalan Cox HDL NORMAL > or = 60 mg/dl - LO W CARDIOVASCULAR RISK <40 mg/dl - HIGH CARDIOVASCULAR RISK Normal [facility] Comment on above: Performed By: #### B ROUTE CONTRACTOR, BMP, LIVER, LIPID ####[facility] [address] [place] [address]Dr. Lindalan Cox LDL CALC NORMAL SEE BELOW Normal [facility] Comment on above: Result Comment: <100 mg/dl OPTIMAL 100 - 129 mg/dl NEAR OR ABOVE OPTIMAL 130 - 159 mg/dl BORDERLINE HIGH 160 - 189 mg/dl HIGH >190 mg/dl VERY HIGH Performed By: #### B ROUTE CONTRACTOR, BMP, LIVER, LIPID ####[facility] [address] [place] [address]Dr. Osmar Cox Triglyceride [Mass/Vol] 239 mg/dL Critically high <=150 [facility] Comment on above: Performed By: #### B ROUTE CONTRACTOR, BMP, LIVER, LIPID ####[facility] [address] [place] [address]Dr. Osmar Cox VLDL CALC 47.8 mg/dL Normal [facility] Comment on above: Performed By: #### B ROUTE CONTRACTOR, BMP, LIVER, LIPID ####[facility] [address] [place] [address]Dr. Osmar Cox LIVER PROFILEon 07-10-2022 Albumin [Mass/Vol] 3.5 g/dL Normal 3.4-5.0 [facility] Comment on above: Performed By: #### B ROUTE CONTRACTOR, BMP, LIVER, LIPID ####[facility] [address] [place] [address]Dr. Lindakenyon Cox Albumin/Globulin [Mass ratio] 1.0 {ratio} Normal [facility] Comment on above: Performed By: #### B ROUTE CONTRACTOR, BMP, LIVER, LIPID ####[facility] [address] [place] [address]Dr. Osmar Cox ALP [Catalytic activity/Vol] 183 U/L Critically high 46-116 [facility] Comment on above: Performed By: #### B ROUTE CONTRACTOR, BMP, LIVER, LIPID ####[facility] [address] [place] [address]Dr. Osmar Cox ALT [Catalytic activity/Vol] 32 U/L Normal 14-59 [facility] Comment on above: Performed By: #### B ROUTE CONTRACTOR, BMP, LIVER, LIPID ####[facility] [address] [place] [address]Dr. Osmar Cox AST [Catalytic activity/Vol] 17 U/L Normal 15-37 [facility] Comment on above: Performed By: #### B ROUTE CONTRACTOR, BMP, LIVER, LIPID ####[facility] [address] [place] [address]Dr. Osmar Cox BILI, CONJUGATED 0.1 mg/dL Normal 0.0-0.2 [facility] Comment on above: Performed By: #### B ROUTE CONTRACTOR, BMP, LIVER, LIPID ####[facility] [address] [place] [address]Dr. Osmar Cox Bilirubin [Mass/Vol] 0.2 mg/dL Normal 0.2-1.0 [facility] Comment on above: Performed By: #### B ROUTE CONTRACTOR, BMP, LIVER, LIPID ####[facility] [address] [place] [address]Dr. Osmar Cox Globulin (S) [Mass/Vol] 3.5 g/dL Normal [facility] Comment on above: Performed By: #### B ROUTE CONTRACTOR, BMP, LIVER, LIPID ####[facility] [address] [place] [address]Dr. Osmar Cox Protein [Mass/Vol] 7.0 g/dL Normal 6.4-8.2 [facility] Comment on above: Performed By: #### B ROUTE CONTRACTOR, BMP, LIVER, LIPID ####[facility] [address] [place] [address]Dr. Osmar Cxo PROF CHEM 8 (BAS METB)on Anion gap [Moles/Vol] 11.6 mmol/L Normal [facility] Comment on above: Performed By: #### B ROUTE CONTRACTOR, BMP, LIVER, LIPID #### [facility] [address] [place] [address] [address] Osmar Cox Calcium [Mass/Vol] 8.9 mg/dL Normal 8.5-10.1 [facility] [place] Comment on above: Performed By: #### B ROUTE CONTRACTOR, BMP, LIVER, LIPID #### [facility] [address] [place] [address] [address] Osmar Cox Chloride [Moles/Vol] 104 mmol/L Normal 98-107 [facility] Comment on above: Performed By: #### B ROUTE CONTRACTOR, BMP, LIVER, LIPID #### [facility] [address] [place] [address] [address] Osmar Cox CO2 [Moles/Vol] 26.0 mmol/L Normal 21.0-32.0 [facility] Comment on above: Performed By: #### B ROUTE CONTRACTOR, BMP, LIVER, LIPID #### [facility] [address] [place] [address] [address] Osmar Cox Creatinine [Mass/Vol] 0.80 mg/dL Normal 0.55-1.02 [facility] Comment on above: Performed By: #### B ROUTE CONTRACTOR, BMP, LIVER, LIPID #### [facility] [address] [place] [address] [address] Osmar Cox EGFR-AF SOLOMON ISLANDER >60 Normal >=60 [facility] Comment on above: Performed By: #### B ROUTE CONTRACTOR, BMP, LIVER, LIPID #### [facility] [address] [place] [address] [address] Osmar Cox EGFR-NON AF SOLOMON ISLANDER >60 Normal >=60 [facility] Comment on above: Performed By: #### B ROUTE CONTRACTOR, BMP, LIVER, LIPID #### [facility] [address] [place] [address] [address] Osmar Cox Glucose [Mass/Vol] 100 mg/dL Normal 74-106 [facility] Comment on above: Performed By: #### B ROUTE CONTRACTOR, BMP, LIVER, LIPID #### [facility] [address] [place] [address] [address] Osmar Cox Potassium [Moles/Vol] 4.6 mmol/L Normal 3.5-5.1 [facility] Comment on above: Performed By: #### B ROUTE CONTRACTOR, BMP, LIVER, LIPID #### [facility] [address] [place] [address] [address] Osmar Cox Sodium [Moles/Vol] 137 mmol/L Normal 136-145 [facility] Comment on above: Performed By: #### B ROUTE CONTRACTOR, BMP, LIVER, LIPID #### [facility] [address] [place] [address] [address] Osmar Cox Urea nitrogen [Mass/Vol] 20.0 mg/dL Critically high 7.0-18.0 [facility] Comment on above: Performed By: #### B ROUTE CONTRACTOR, BMP, LIVER, LIPID #### [facility] [address] [place] [address] [address] Osmar Cox Urea nitrogen/Creatinin e [Mass ratio] 25.0 mg/mg Normal [facility] Comment on above: Performed By: #### B ROUTE CONTRACTOR, BMP, LIVER, LIPID #### [facility] [address] [place] [address] [address] Osmar Cox XR CHEST 2 Von [...] CONSUELO TELLES Date: 2022-06-04 19:26 Normal [facility] HEMOGLOBINon 06-02-2022 Hemoglobin (Bld) [Mass/Vol] 12.1 g/dL Normal 12.0-16.0 [facility] Comment on above: Performed By: #### H GB #### [facility] [address] [place] [address] [address] Osmar Cox XR CHEST 2 Von [...] CONSUELO TELLES Date: 2022-06-02 19:19 Normal [facility] NM STRESS/REST MULTIon 05-06 NM STRESS/REST MULTI Patient: EBONY MEDLEY Exam Date: 05/06/2022 : 1960 Gender:F Ordering : DR NOLA RAMIREZ . Admission #: [id number] Family : Order #: [id number] CLICK HERE TO VIEW EXAM RADIOLOGY REPORT [...] : DR NOLA RAMIREZ . Admission #: [id number] Family : Order #: [id number] CLICK HERE TO VIEW EXAM ECHOCARDIOGRAM REPORT [...] M.D. on 04/30/2022 at 20:09 Normal [facility] LITHIUMon 03-20-2022 Ensign (Eskalith(R)), Serum 0.6 mmol/L Normal 0.5-1.2 [facility] Comment on above: Result Comment: Plas ma concentration of 0.5 - 0.8 mmol/L are advised for long-term use; concentrations of up to 1.2 mmol/L may be necessary during acute treatment. Detection Limit = 0.1 <0.1 indicates None Detected Performed By: #### L ITHIUM ####[facility] [address] [place] [address]Dr. Osmar Cox LIPID PROFILEon 03-19-2022 CHOL-HDL RATIO NORM SEE BELOW Normal [facility] Comment on above: Result Comment: 3.3 - 4.4 LOW RISK 4.4 - 7.1 AVERAGE RISK 7.1 - 11.0 MODERATE RISK >11.0 HIGH RISK Performed By: #### T SH, T4, LIPID, CMP ####[facility] [address] [place] [address]Dr. Lindakenyon Cox Cholesterol [Mass/Vol] 269 mg/dL Critically high <=200 [facility] Comment on above: Performed By: #### T SH, T4, LIPID, CMP ####[facility] [address] [place], [place] [address]Dr. Osmar Cox Cholesterol in HDL [Mass/Vol] 48 mg/dL Normal 40-60 [facility] Comment on above: Performed By: #### T SH, T4, LIPID, CMP ####[facility] [address] [place], [place] [address]Dr. Osmar Cox Cholesterol in LDL [Mass/Vol] 145.8 mg/dL Normal [facility] Comment on above: Performed By: #### T SH, T4, LIPID, CMP ####[facility] W[address] [place], [place] [address]Dr. Osmar Cox Cholesterol.total/ Cholesterol in HDL [Mass ratio] 5.6 {ratio} Normal The [facility] Comment on above: Performed By: #### T SH, T4, LIPID, CMP ####[facility] K[address] [place], [place] [address]Dr. Osmar Cox HDL NORMAL > or = 60 mg/dl - LO W CARDIOVASCULAR RISK <40 mg/dl - HIGH CARDIOVASCULAR RISK Normal [facility] Comment on above: Performed By: #### T SH, T4, LIPID, CMP ####[facility] [address] [place], [place] [address]Dr. Osmar Cox LDL CALC NORMAL SEE BELOW Normal [facility] Comment on above: Result Comment: <100 mg/dl OPTIMAL 100 - 129 mg/dl NEAR OR ABOVE OPTIMAL 130 - 159 mg/dl BORDERLINE HIGH 160 - 189 mg/dl HIGH >190 mg/dl VERY HIGH Performed By: #### T SH, T4, LIPID, CMP ####[facility] [address] [place] [address]Dr. Osmar Cox Triglyceride [Mass/Vol] 376 mg/dL Critically high <=150 The [facility] Comment on above: Performed By: #### T SH, T4, LIPID, CMP ####[facility] [address] [place] [address]Dr. Osmar Cox VLDL CALC 75.2 mg/dL Normal The [facility] Comment on above: Performed By: #### T SH, T4, LIPID, CMP ####[facility] [address] [place] [address]Dr. Osmar Cox PROF 14(COMP METB)on 022 Albumin [Mass/Vol] 3.4 g/dL Normal 3.4-5.0 [facility] Comment on above: Performed By: #### T SH, T4, LIPID, CMP ####[facility] I[address] [place], [place] [address]Dr. Osmar Cox Albumin/Globulin [Mass ratio] 1.0 {ratio} Normal [facility] Comment on above: Performed By: #### T SH, T4, LIPID, CMP ####[facility] [address] [place] [address]Dr. Osmar Cox ALP [Catalytic activity/Vol] 118 U/L Critically high 46-116 The [facility] Comment on above: Performed By: #### T SH, T4, LIPID, CMP ####[facility] X[address]ips[address] [place] [address]Dr. Osmar Cox ALT [Catalytic activity/Vol] 17 U/L Normal 14-59 [facility] Comment on above: Performed By: #### T SH, T4, LIPID, CMP ####[facility] [address] [place] [address]Dr. Osmar Cox Anion gap [Moles/Vol] 11.3 mmol/L Normal [facility] Comment on above: Performed By: #### T SH, T4, LIPID, CMP ####[facility] X[address] [place], [place] [address]Dr. Osmar Cox AST [Catalytic activity/Vol] 11 U/L Critically low 15-37 The [facility] Comment on above: Performed By: #### T SH, T4, LIPID, CMP ####[facility] [address] [place], [place] [address]Dr. Osmar Cox Bilirubin [Mass/Vol] 0.2 mg/dL Normal 0.2-1.0 [facility] Comment on above: Performed By: #### T SH, T4, LIPID, CMP ####[facility] W[address] [place], [place] [address]Dr. Osmar Cox Calcium [Mass/Vol] 8.7 mg/dL Normal 8.5-10.1 The [facility] Comment on above: Performed By: #### T SH, T4, LIPID, CMP ####[facility] Kn[address]nsyoji[address] [place], [place] [address]Dr. Osmar Cox Chloride [Moles/Vol] 106 mmol/L Normal 98-107 The [facility] Comment on above: Performed By: #### T SH, T4, LIPID, CMP ####[facility] Ncoh[address] [place], [place] [address]Dr. Osmar Cox CO2 [Moles/Vol] 23.6 mmol/L Normal 21.0-32.0 [facility] Comment on above: Performed By: #### T SH, T4, LIPID, CMP ####[facility] [address] [place], [place] [address]Dr. Osmar Cox Creatinine [Mass/Vol] 0.86 mg/dL Normal 0.55-1.02 The [facility] Comment on above: Performed By: #### T SH, T4, LIPID, CMP ####[facility] [address] [place], [place] [address]Dr. Osmar Cox EGFR-AF [place] >=60 Normal >=60 [facility] Comment on above: Performed By: #### T SH, T4, LIPID, CMP ####[facility] [address] [place] [address]Dr. Osmar Cox EGFR-NON AF [place] >=60 Normal >=60 The [facility] Comment on above: Performed By: #### T SH, T4, LIPID, CMP ####[facility] [address] [place] [address]Dr. Osmar Cox Globulin (S) [Mass/Vol] 3.3 g/dL Normal [facility] Comment on above: Performed By: #### T SH, T4, LIPID, CMP ####[facility] [address] [place] [address]Dr. Osmar Cox Glucose [Mass/Vol] 104 mg/dL Normal 74-106 [facility] Comment on above: Performed By: #### T SH, T4, LIPID, CMP ####[facility] [address] [place], [place] [address]Dr. Osmar Cox Potassium [Moles/Vol] 4.9 mmol/L Normal 3.5-5.1 The [facility] Comment on above: Performed By: #### T SH, T4, LIPID, CMP ####[facility] [address] [place], [place] [address]Dr. Osmar Cox Protein [Mass/Vol] 6.7 g/dL Normal 6.1-8.2 [facility] Comment on above: Performed By: #### T SH, T4, LIPID, CMP ####[facility] Cs[address] [place], [place] [address]Dr. Osmar Cox Sodium [Moles/Vol] 136 mmol/L Normal 136-145 [facility] Comment on above: Performed By: #### T SH, T4, LIPID, CMP ####[facility] U[address] [place], [place] [address]Dr. Osmar Cox Urea nitrogen [Mass/Vol] 25.0 mg/dL Critically high 7.0-18.0 [facility] Comment on above: Performed By: #### T SH, T4, LIPID, CMP ####[facility] [address] [place] [address]No. Osmar Cox Urea nitrogen/Creatinin e [Mass ratio] 29.1 mg/mg Normal [facility] Comment on above: Performed By: #### T SH, T4, LIPID, CMP ####[facility] [address] [place], [place] [address]Sj. Omsar Cox T4on 03-19-2022 T4 [Mass/Vol] 7.60 ug/dL Normal 4.80-13.90 The [facility] Comment on above: Performed By: #### T SH, T4, LIPID, CMP ####[facility] [address]nm[address] [place], [place] [address]Qz. Osmar Cox TSHon 03-19-2022 TSH 1.427 uIU/mL Normal 0.470-4.680 [facility] Comment on above: Performed By: #### T SH, T4, LIPID, CMP ####[facility] [address] [place] [address]Dr. Osmar Cox TSH RANGE SEE BELOW Normal The [facility] Comment on above: Result Comment: <0.3 4 UIU/ml HYPERTHYROID 0.34-5.60 UIU/ml EUTHYROID >5.60 UIU/ml HYPOTHYROID Performed By: #### T SH, T4, LIPID, CMP ####[facility] [address] [place] [address]Dr. Osmar Cox Laboratory Studieson 018 Albumin [Mass/Vol] 3.8 g/dL 3.2-5.5 [facility] Albumin/Globulin [Mass ratio] 1.5 {ratio} [facility] ALP [Catalytic activity/Vol] 75 U/L 32-92 [facility] ALT No additional P-5'-P [Catalytic activity/Vol] 16 U/L 10-60 [facility] AST [Catalytic activity/Vol] 18 U/L 10-42 [facility] Basophils (Bld) [#/Vol] 0.1 10*3/uL 0.0-0.2 [facility] Basophils/100 WBC (Bld) 1.0 % [facility] Bilirubin [Mass/Vol] 0.5 mg/dL 0.3-1.2 [facility] Calcium [Mass/Vol] 9.2 mg/dL 8.2-10.2 [facility] Carbamazepine [Mass/Vol] < 2.0 ug/mL Low 4.0-12.0 [facility] Chloride [Moles/Vol] 103 mmol/L 95-114 [facility] CK [Catalytic activity/Vol] 46 U/L 22-269 [facility] CK.MB [Mass/Vol] 1.0 ng/mL 0.6-6.3 [facility] CK.MB Calc [Catalytic fraction] 2.1 0.00-2.50 [facility] CO2 [Moles/Vol] 24.9 mmol/L 22.0-30.0 [facility] Creatinine [Mass/Vol] 0.58 mg/dL 0.44-1.03 [facility] Eosinophils (Bld) [#/Vol] 0.2 10*3/uL 0.0-0.45 [facility] Eosinophils/100 WBC (Bld) 3.1 % [facility] Erythrocyte distribution width (RBC) [Ratio] 13.5 % 11.9-15.3 [facility] Ethanol [Mass/Vol] mg/dL [facility] Ethanol [Mass/Vol] TNP [facility] Comment on above: Test not performed GFR/1.73 sq M predicted among blacks MDRD (S/P/Bld) [Vol rate/Area] mL/min/{1.73_m2} [facility] Comment on above: GFR estimated refere nce range: According to KDOQI guidelines, <60 ml/min/1.73m2 is sufficient to diagnose a patient with chronic kidney disease. GFR/1.73 sq M predicted among non-blacks MDRD (S/P/Bld) [Vol rate/Area] mL/min/{1.73_m2} [facility] Globulin (S) [Mass/Vol] 2.6 g/dL [facility] Glucose [Mass/Vol] 96 mg/dL 70-100 [facility] Comment on above: ADA recommended refe rence range Random Glucose Reference Range is dependent on time and content of last meal. Glucose of more than 200 mg/dL in a nonstressed, ambulatory subject supports the diagnosis of Diabetes Mellitus. Hematocrit (Bld) [Volume fraction] 38.7 % 34.0-46.4 [facility] Hemoglobin (Bld) [Mass/Vol] 12.8 g/dL 11.8-15.4 [facility] Lymphocytes (Bld) [#/Vol] 2.1 10*3/uL 1.00-4.8 [facility] Lymphocytes/100 WBC (Bld) 33.0 % [facility] MCH (RBC) [Entitic mass] 28.3 pg 24.7-34.3 [facility] MCHC (RBC) [Mass/Vol] 33.1 g/dL 32.0-35.0 [facility] MCV (RBC) [Entitic vol] 85.4 fL 80-100 [facility] Monocytes (Bld) [#/Vol] 0.5 10*3/uL 0.0-0.8 [facility] Monocytes/100 WBC (Bld) 7.2 % [facility] Neutrophils (Bld) [#/Vol] 3.5 10*3/uL 1.8-7.7 [facility] Neutrophils/100 WBC (Bld) 55.7 % [facility] Creatinine Clearance (Chem 87.4588 [facility] Platelet mean volume (Bld) [Entitic vol] 6.9 fL 6.3-10.7 [facility] Platelets (Bld) [#/Vol] 270 10*3/uL 150-450 [facility] Potassium [Moles/Vol] 4.3 mmol/L 3.5-5.1 [facility] Protein [Mass/Vol] 6.4 g/dL 6.1-7.9 [facility] RBC (Bld) [#/Vol] 4.52 10*6/uL 3.60-5.00 [facility] Sodium [Moles/Vol] 136 mmol/L 136-146 [facility] Troponin I.cardiac [Mass/Vol] ng/mL 0-0.02 [facility] Comment on above: [place] Cut off value > or equal to 0.03 ng/mL in conjunction with clinical conditions of myocardial infarction. (www.escardio.org/guidelines) Urea nitrogen [Mass/Vol] 18 mg/dL 9-23 [facility] Valproate [Mass/Vol] 52.6 ug/mL 50.0-100.0 [facility] Comment on above: Last dose: - WBC (Bld) [#/Vol] 6.3 10*3/uL 3.8-11.6 [facility] Amphetamines Ql (U) Negative [facility] Barbiturates Ql (U) Negative [facility] Benzodiazepines Ql (U) Negative [facility] Bilirubin Ql (U) Negative [facility] Cannabinoids Screen Ql (U) Negative [facility] Comment on above: These are unconfirme d results and should not be used for legal purposes. Drug Cut-Off Concentration: AMPH 1000 ng/mL ALFREDO 200 ng/mL JAXON 200 ng/mL COCM 300 ng/mL OP 300 ng/mL PCP 25 ng/mL THC 20 ng/mL Clarity Refractometry automated (U) Clear [facility] Cocaine Ql (U) Negative [facility] Color (U) Yellow [facility] Glucose Auto test strip (U) [Mass/Vol] Normal mg/dL [facility] Hemoglobin Auto test strip Ql (U) Negative [facility] Ketones (U) [Mass/Vol] Negative [facility] Leukocyte esterase Auto test strip Ql (U) Negative [facility] Nitrite Ql (U) Negative [facility] Opiates Ql (U) Negative [facility] pH (U) 6.5 [pH] 5.0-9.0 [facility] Phencyclidine Ql (U) Negative [facility] Protein (U) [Mass/Vol] Negative [facility] Specific gravity (U) [Rel density] 1.018 1.001-1.030 [facility] Urobilinogen (U) [Mass/Vol] Normal mg/dL [facility] Vital Signs Date Time Vital Sign Value Performing Clinician Facility 09-02-2022 13:44-0400 Blood Pressure Location Ganga ZUNIGAAn [facility] 09-02-2022 13:44-0400 Diastolic blood pressure 82 mm[Hg] Ganga NILL [facility] 09-02-2022 13:44-0400 Heart rate 72 /min Ganga NILL [facility] 09-02-2022 13:44-0400 Respiratory rate 16 /min Ganga NILL [facility] 09-02-2022 13:44-0400 Systolic blood pressure 120 mm[Hg] Ganga NILL [facility] 03-07-2019 15:00-0400 Body Temperature 97.8 [degF] [facility] 03-07-2019 15:00-0400 BP Diastolic 88 mm[Hg] [facility] 03-07-2019 15:00-0400 BP Systolic 158 mm[Hg] [facility] 03-07-2019 15:00-0400 Pulse (Heart Rate) 78 /min [facility] 03-07-2019 15:00-0400 Pulse Oximetry 95 % [facility] 03-07-2019 15:00-0400 Respiratory Rate 16 /min [facility] Body weight [facility] NEGATED: Highlighted row BMI (Body Mass Index) [facility] NEGATED: Highlighted row Height [facility] Encounters Encounter Date Encounter Type Care Provider Facility Start: 01-29-2025 ambulatory Dereck De La Rosa acility:[facility] Start: 06-28-2024 End: 06-29-2024 ambulatory [facility] Start: 12-15-2023 End: 12-15-2023 ambulatory [facility] Start: 10-21-2022 End: 10-22-2022 ambulatory Ganga PEARCE Facility:[facility] Start: 10-21-2022 End: 10-21-2022 Patient encounter procedure Ganga PEARCE [facility] Start: 10-08-2022 Encounter for preprocedural laboratory examination [...] encounter procedure Ganga PEARCE [facility] Start: 08-11-2022 End: 08-11-[address] NOLA RAMIREZ Facility:[facility] Start: 08-06-2022 End: 08-07-[address] Nicolas Kirk Facility:[facility] Start: 07-28-2022 End: 07-29-2022 ambulatory NOLA RAMIREZ Facility:[facility] Start: 07-24-2022 End: 07-25-[address] [...] Start: 03-19-2022 End: 03-20-[address] DOCTOR [facility] Facility:[facility] Start: 03-15-2019 End: 03-15-2019 Patient encounter procedure Nola ramses [facility] Start: 03-07-2019 End: 03-07-2019 Admission to day surgery Nola Ramirez [facility] Start: 02-01-2018 End: 02-01-2018 Emergency department patient visit Nola ramses [facility] Start: 06-07-2014 End: 06-12-2014 Evaluation and management of inpatient [facility] Start: 06-17-2011 End: 06-20-2011 Evaluation and management of inpatient [facility] Start: 05-01-2011 End: 05-18-2011 Evaluation and management of inpatient [facility] Start: 05-27-2010 End: 06-26-2010 Discharged Recurring [facility] Start: 05-22-2010 End: 06-21-2010 Discharged Recurring [facility] Start: 04-22-2010 End: 05-21-2010 Discharged Recurring [facility] Start: 03-22-2010 End: 04-21-2010 [facility] Start: 02-20-2010 End: 03-21-2010 Discharged Recurring [facility] Start: 01-20-2010 End: 02-19-2010 Discharged Recurring [facility] Start: 01-20-2010 End: 02-19-2010 Discharged Recurring [facility] Start: 01-16-2010 End: 01-19-2010 Discharged Recurring Nola Hoy [facility] Start: 12-23-2009 End: 01-19-2010 Discharged Recurring Nola Hoy [facility] Start: 11-23-2009 End: 12-22-2009 Discharged Recurring Nola ramses [facility] Start: 11-22-2009 End: 01-20-2010 Discharged Recurring Nola y [facility] Start: 10-22-2009 End: 11-21-2009 Discharged Recurring Nola Hoy [facility] Start: 10-15-2009 End: 11-22-2009 Discharged Recurring Nola [facility] Start: 09-22-2009 End: 10-21-2009 Discharged Recurring Nola [facility] Start: 08-22-2009 End: 09-21-2009 Discharged Recurring Nola Hoy [facility] Start: 08-06-2009 End: 08-21-2009 Discharged Recurring Nola y [facility] Start: 07-02-2009 End: 07-22-2009 Discharged Recurring Nola [facility] Start: 06-04-2009 End: 06-21-2009 Discharged Recurring Nola [facility] Start: 04-22-2009 End: 05-21-2009 Discharged Recurring Nola y [facility] Start: 03-22-2009 End: 04-21-2009 Discharged Recurring Nola [facility] Start: 02-20-2009 End: 03-21-2009 Discharged Recurring Nola [facility] Start: 02-10-2009 End: 02-10-2009 Emergency department patient visit Nola Hoy [facility] Start: 01-21-2009 End: 02-19-2009 Discharged Recurring Nola James [facility] Start: 12-24-2008 End: 01-19-2009 Discharged Recurring Nola Hoy [facility] Start: 11-23-2008 End: 12-22-2008 Discharged Recurring Nola Hoy [facility] Start: 10-22-2008 End: 11-21-2008 Discharged Recurring Nola Hoy [facility] Start: 09-22-2008 End: 10-21-2008 Discharged Recurring Nola ramses [facility] Start: 08-22-2008 End: 09-21-2008 Discharged Recurring Nola Hoy [facility] Start: 07-24-2008 End: 08-21-2008 Discharged Recurring Nola Hoy [facility] Start: 07-02-2008 End: 07-05-2008 Evaluation and management of inpatient Nola ramses [facility] Start: 06-22-2008 End: 07-22-2008 Discharged Recurring Nola Hoy [facility] Start: 06-05-2008 End: 06-14-2008 Evaluation and management of inpatient Nola ramses [facility] Start: 05-29-2008 End: 06-21-2008 Discharged Recurring Nola ramses [facility] Start: 04-24-2008 End: 05-21-2008 Discharged Recurring Nola [facility] Start: 03-22-2008 End: 04-21-2008 Discharged Recurring Nola Hoy [facility] Start: 02-21-2008 End: 03-21-2008 Discharged Recurring Nola Ramirez [facility] Start: 02-14-2008 End: 02-20-2008 Discharged Recurring Nola Ramirez [facility] Start: 12-23-2007 End: 01-20-2008 Discharged Recurring Nola Ramirez [facility] Start: 12-20-2007 End: 12-23-2007 Evaluation and management of inpatient Nola Ramirez [facility] Start: 11-22-2007 End: 12-22-2007 Discharged Recurring Nola Ramirez [facility] Start: 10-22-2007 End: 11-21-2007 Discharged Recurring Nola Ramirez [facility] Start: 09-22-2007 End: 10-21-2007 Discharged Recurring Nola Ramirez [facility] Start: 08-22-2007 End: 09-21-2007 Discharged Recurring Nola Ramirez [facility] Start: 07-23-2007 End: 08-21-2007 Discharged Recurring Nola Ramirez [facility] Start: 06-22-2007 End: 07-22-2007 Discharged Recurring Nola Ramirez [facility] Start: 05-22-2007 End: 06-21-2007 Discharged Recurring Nola ramses [facility] Start: 04-28-2007 End: 04-28-2007 Emergency department patient visit Nola Ramirez [facility] Start: 04-28-2007 End: 04-28-2007 Patient encounter procedure Nola ramses [facility] Start: 04-28-2007 End: 05-21-2007 Discharged Recurring Nola [facility] Start: 03-01-2002 End: 03-21-2002 Discharged Recurring Nola [facility] Start: 03-01-2002 End: 03-04-2002 [facility] Start: 03-24-2001 End: 03-24-2001 Discharged Recurring Nola [facility] Start: 03-24-2001 End: 04-04-2001 [facility] Start: 09-27-1996 End: 09-30-1996 Evaluation and management of inpatient [facility] Start: 08-19-1995 End: 08-19-1995 [facility] Start: 09-27-1993 End: 09-27-1993 Patient encounter procedure [facility] Procedures Date Procedure Procedure Detail Performing [...] NILL Payers Date Payer Category Payer Unknown [id number] 2023 Self-pay 1960 Medicaid [id number] 1960 Medicare [id number] 1959 Self-pay [id number] 1959 Unknown [id number] 2.16.8 [id number] 1959 Unknown [id number] 2.16.84 0.1.271461.3.579.2.593 1959 Unknown [id number] 2.16.84 0.1.475153.3.579.2.593 1959 Unknown [id number] 2.16.84 0.1.722905.3.579.2.593 1959 Unknown [id number] 2.16.84 0.1.731822.3.579.2.593 1959 Unknown [id number] 2.16.84 0.1.698171.3.579.2.593 1959 Unknown [id number] 2.16.84 0.1.456557.3.579.2.593 1959 Unknown [id number] 2.16.84 0.1.128206.3.579.2.593 1959 Unknown [id number] 2.16.84 0.1.134679.3.579.2.593 1959 Unknown [id number] 2.16.84 0.1.892580.3.579.2.593 1959 Unknown [id number] 2.16.84 0.1.952357.3.579.2.593 1959 Unknown [id number] 2.16.84 0.1.876890.3.579.2.593 1959 Unknown [id number] 2.16.84 0.1.142660.3.579.2.593 1959 Unknown [id number] 2.16.84 0.1.313106.3.579.2.593 1959 Unknown [id number] 2.16.84 0.1.729818.3.579.2.593 1959 Unknown [id number] 2.16.84 0.1.305035.3.579.2.593 1959 Unknown [id number] 2.16.8 40.1.719769.3.579.2.727 1959 Unknown [id number] 2.16.8 40.1.521111.3.579.2.727 1959 Unknown [id number] 2.16.8 40.1.549868.3.579.2.727 Medicare [id number] Unknown [id number] 2.16.8 40.1.205747.3.579.2.531 Social History Date Type Detail Facility Start: 09-02-2022 Tobacco smoking status Ex-smoker (fi nding) [facility] Tobacco smoking status Never Gener al [facility] Sex Assigned At Female [facility] Equipment Procedure Code Equipment Code Equipment Origin al Text Equipment Identifier Dates HERNIA REPAIR, R OBOT ASSISTED CAIT LEHMAN, Ganga Salgado 12/05/20 Non Biological Abdomen {[id number] [facility] Start: 12-05-2020 Functional Status Date Assessment Result Facility 09-02-2022 Functional Status N/A General [facility] Progress note 06-28-2024 Note Date & Type Note Facility 06-28-2024 Note [facility] Subjective Ebony Medley is a [...] pain. No palpit (more content not included)... [facility] Progress note 12-15-2023 Note Date & Type Note Facility 12-15-2023 Note [facility] Subjective Ebony Medley is a [...] is not ill-ap (more content not included)... [facility] Clinical Note 10-07-2022 Note Date & Type [...] good condition. CC: Nola Ramirez M.D. [facility] Clinical Note 09-02-2022 Note Date & [...] Allergies Social Hi (more content not included)... [facility] Comment on above: Result Comment: Elec tronically Signed By: CAIT LEHMAN, Ganga Valencia\Date and Time Signed: 09/02/22 15:31 EDT Evaluation + Plan note Note Date & Type Note Facility Evaluation + Plan note No data available for this section General Surgery [facility] Discharge instructions Note Date & Type Note Facility Hospital Discharge instructions No data available for this section General Surgery [facility] note Note Date & Type Note [...] section and content) DATE CREATED AUTHOR 07/31/2022 [facility] DATE CREATED AUTHOR AUTHOR'S ORGANIZ ATION 10/14/2022 [facility] DATE CREATED AUTHOR AUTHOR'S ORGANIZ ATION 10/22/2022 [facility] DATE CREATED AUTHOR AUTHOR'S ORGANIZ ATION 07/19/2024 [facility] DATE CREATED AUTHOR AUTHOR'S ORGANIZ ATION 02/07/2025 [facility] Patient Care team informatio n (unrecognized section and content) Personnel Name: Nola Ramirez MD Address: Address: [address] [place] [address] Name: Toya Straddle Truck OperatorFlorence Personnel Name: Nola Ramirez MD Address: Address: [address] [place] [address] Name: Toya [employer] Operator, Amy FOR RECORDS PERTAINING TO PATIENTS WHO [...] BE BASED ON THE PRIMARY CLINICAL RECORDS. [facility] [employer] provides no warranty or guarantee of the accuracy or completeness of information in this document.
[2025-02-09 09:36] LABS: Estimated Average Glucose 114 mg/dL; Glycohemoglobin A1C 5.6 % (4.5-6.2)
[2025-02-09 10:05] LABS: Alanine Aminotransferase 21 U/L (14-59); Albumin Globulin Ratio 0.9; Albumin Level 3.7 g/dL (3.4-5.0); Alkaline Phosphatase 216 U/L (46-116); Anion Gap 12.9; Aspartate Amino Transferase 15 U/L (15-37); BUN Creatinine Ratio 24.8; Bilirubin Total 0.3 mg/dL (0.2-1.0); Calcium 9.8 mg/dL (8.5-10.1); Carbon Dioxide 25.3 mmol/L (21.0-32.0); Chloride 106 mmol/L (98-107); Chol HDL Ratio 4.1; Cholesterol 189 mg/dL (<=200); Estimated GFR (African America >60 (>=60 mL/min/1.73m^2); Estimated GFR (Non-African Ame 50 (>=60 mL/min/1.73m^2); Free T3 2.45 pg/mL (2.18-3.98); Globulin 3.9 g/dL; Glucose 116 mg/dL (74-106); HDL Cholesterol 46 mg/dL (40-60); Potassium 4.2 mmol/L (3.5-5.1); Sodium 140 mmol/L (136-145); Thyroid Stimulating Hormone 2.253 uIU/mL (0.358-3.740); Total Protein 7.6 g/dL (6.4-8.2); Triglycerides 354 mg/dL (<=150); VLDL CHOLESTEROL 70.8 mg/dL
== END 2025-02-09 09:03 | disposition home or self-care (01) ==
LOC: LAB 09:02
PROVIDERS: PCP Family Medicine; Visit Provider Family Medicine
DX: I27.20 Pulmonary hypertension, unspecified (principal); G25.81 Restless legs syndrome; G47.33 Obstructive sleep apnea (adult) (pediatric); E78.2 Mixed hyperlipidemia; I10 Essential (primary) hypertension; R73.09 Other abnormal glucose; E03.9 Hypothyroidism, unspecified; E55.9 Vitamin D deficiency, unspecified
CPT/HCPCS: 36415; 80053; 80061; 82306; 83036; 84436; 84443; 84481; 85025

== ENCOUNTER 2025-02-19 08:13 | Outpatient (OUT) | payer MEDICARE, SELFPAY ==
--- OUTSIDE RECORDS SUMMARY | 2025-02-19 08:24 | XMS_ITS | CCD ---
Author Organization [facility] Care Team Providers Care Chief Financial Officer Name Role Phone Nola Ramirez Primary Care Physician Unavailab Nolan Ron Attending Physician Unavailable NOLA RAMIREZ Referring Unavailable NOLA RAMIREZ Primary Care Unavailable JESSIE ARNETT V Attending Unavailable JESSEI ARNETT V Admitting Unavailable Nola Ramirez Primary [...] Date of Onset Reaction(s) Facility (1 source) 40578,00 Drug allergy (disorder) 1 [facility] Repository (1 source) oxyCODONE; Translations: [OxyCODONE Hydrochloride] Drug Allergy [facility] Repository (1 source) No Known Medication Allergies; Translations: [No Known Medication Allergies] Propensity to adverse reactions (disorder) [facility] Repository Medications Current Medications Medication Drug [...] 300 mg by mouth once aarti y [place] Carbonate 300 MG Oral Daily June 13, 2019 Active Start: 06-13-2019 take 600 mg by mouth at bedtim e [place] Carbonate 600 MG Oral Bedtime June 13, 2019 Active Start: 06-01-2019 End: 06-13-2019 take 300 mg by mouth at bedtime [place] Carbonate 300 MG Oral Bedtime June 01, 2019 June 13, 2019 Discontinued Start: 08-15-2018 End: 06-01-2019 take 150 mg by mouth at bedtime [place] Carbonate 150 MG Oral Bedtime February 27, [...] 2 02-02-2014 Chronic 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 [facility] Office Visiton 06-28-2024 Follow-up visit [id number] Julia Medley Nneka 1960 F Date Provider Department Center 06/28/2024 JESSIE RIVERA Family History Problem Relation Age of Onset Hypertension Mother Hypertension Father Family Status - Relation Status Age at Mother Father Level of Service:14630 AR OFFICE/OUTPATIENT ESTABLISHED MOD MDM 30 MIN Normal [facility] Office Visiton 12-15-2023 Follow-up visit [id number] Julia Medley joséreyna 1960 F Date Provider Department Center 12/15/2023 JESSIE RIVERA Family History Problem Relation Age of Onset Hypertension Mother Hypertension Father Family Status - Relation Status Age at Mother Father Level of Service:37396 AR OFFICE/OUTPATIENT ESTABLISHED MOD MDM 30 MIN Normal [facility] General Surgery Office/Clini c Noteon 10-21-2022 [...] 2: Mother. Hypertension: Mother and Father. Normal [facility] Comment on above: Result Comment: Elec tronically Signed By: CAIT LEHMAN, Ganga Valencia\Date and Time Signed: 10/21/22 15:25 EST Operative Reporton 2 Operative Report [id number]#1.00CD:127 Normal [facility] Operative Reporton 2 Operative Report [id number]#1.00CD:127 [facility] Pathology Noteon 10-09-2022 Pathology Note [id number]#1.00CD:127 [facility] Lab Reportson 10-05-2022 Lab Reports [id number]#1.00CD:127 Normal [facility]-22 SARS-CoV-2 (COVID-19) RNA ISABEL+probe Ql (Unsp spec) Not detected Normal NOT DETECTED [facility] Comment on above: Result Comment: This test is not yet approved or cleared by the [place] FDA. When there are no FDA-approved or cleared tests available, and other criteria are met, FDA can make tests available under an emergency access mechanism called an Emergency Use Authorization (EUA). The EUA for this test is supported by the [place] of Health and Human Service's (HHS's) declaration [...] consistent with SARS-CoV-2. Performed By: #### C [facility] #### [facility] [address] [place] [address] Dr. Osmar Cox Consent for Procedure/Surger yon 09-03-2022 Consent for Procedure/Surgery [id number]:127 Normal [facility] Ambulatory Visit Summaryon 1 Ambulatory Visit [...] of Clostridium difficile infection Memory loss Normal [facility] Correspo ndenceon 08-19-2022 Outside Hospital Correspondence [id number]#1.00CD:127 Normal [facility] RAD - CT Reporton 08-19-2022 RAD - CT Report [id number]#1.00CD:127 Normal [facility] RAD - MISCon 08-19-2022 RAD - MISC [id number]#1.00CD:127 Normal [facility] Physician Referralon 022 Physician Referral [id number]#1.00CD:127 Normal [facility] 07-24 SARS-CoV-2 (COVID-19) RNA ISABEL+probe Ql (Unsp spec) Not detected Normal NOT DETECTED [facility] Comment on above: Result Comment: This test is not yet approved or cleared by the [place] FDA. When there are no FDA-approved or cleared tests available, and other criteria are met, FDA can make tests available under an emergency access mechanism called an Emergency Use Authorization (EUA). The EUA for this test is supported by the [place] of Health and Human Service's (HHS's) declaration [...] consistent with SARS-CoV-2. Performed By: #### C [facility] #### [facility] [address] [place] [address] Dr. Osmar Cox XR MODIFIED BARIUM SWALLOWon [...] NICOLAS KIRK Date: 2022-08-06 15:18 Normal [facility] Cardiovascular Lab Reporton 07-29-2022 Cardiovascular Lab Report [facility] Patient Name: Ebony Medley [facility] MR #: [id number] Physician: Jessie De Oliveira of [place] [facility] Medicine Service Date: 07/28/2022 Division of Birthdate: 1960 Cardiology Room #: [facility] Cardiovascular Services [place] [address] Cardiovascular Laboratory Report INDICATIONS: The patient is [...] signed informed consent. She was brought to laboratory mechanic helper in a fasting state. The right neck area was prepped and draped in usual fashion. Micropuncture technique and ultrasound guidance were used for access in the right internal jugular vein. A 6-Belgian x 11 cm sheath was placed. A 6-Belgian Suarez catheter was used for right heart catheterization and measurement of pressures and calculation of cardiac output using the estimated Karina method. Suarez catheter was removed. Micropuncture technique and ultrasound guidance were used for access in the right radial artery. A 5-Belgian x 11 cm slender sheath was advanced. Verapamil was given through the sheath and heparin was administered intravenously. Bilateral selective coronary angiography was then performed using 5-Belgian JL 3.5 and JR5 diagnostic catheters. Catheters [...] Arnett M.D. Date Trans: 07/29/2022 03:31 A/gladys [id number] cc: Nola Ramirez M.D. [place] [id number] [facility] [address] Normal [facility] CBC AUTO DIFFon 07-24-2022 BASO # 0.1 103/ul Normal 0.0-0.1 [facility] Comment on above: Performed By: #### C BC #### [facility] [address] [place] [address] Dr. Osmar Cox Basophils/100 WBC (Bld) 0.9 % Normal 0.2-2.0 [facility] Comment on above: Performed By: #### C BC #### [facility] [address] [place] [address] Dr. Osmar Cox EO # 0.0 103/ul Normal 0.0-0.7 [facility] Comment on above: Performed By: #### C BC #### [facility] [address] [place] [address] Dr. Osmar Cox Eosinophils/100 WBC (Bld) 0.1 % Critically low 0.9-7.0 [facility] Comment on above: Performed By: #### C BC #### [facility] [address] [place] [address] Dr. Osmar Cox Erythrocyte distribution width (RBC) [Ratio] 15.4 % Critically high 11.0-15.0 [facility] Comment on above: Performed By: #### C BC #### [facility] [address] [place] [address] Dr. Osmar Cox Hematocrit (Bld) [Volume fraction] 40.7 % Normal 36.0-48.0 [facility] Comment on above: Performed By: #### C BC #### [facility] [address] [place] [address] Dr. Osmar Cox Hemoglobin (Bld) [Mass/Vol] 12.5 g/dL Normal 12.0-16.0 [facility] Comment on above: Performed By: #### C BC #### [facility] [address] [place] [address] Dr. Osmar Cox IG # 0.08 10e3/ul Critically high 0.00-0.03 [facility] Comment on above: Performed By: #### C BC #### [facility] [address] [place] [address] Dr. Osmar Cox IG % 0.7 % Critically high 0.0-0.5 [facility] Comment on above: Performed By: #### C BC #### [facility] [address] [place] [address] Dr. Osamr Cox LYMPH # 2.6 103/ul Normal 1.2-3.8 [facility] Comment on above: Performed By: #### C BC #### [facility] [address] [place] [address] Dr. Osmar Cox Lymphocytes/100 WBC (Bld) 22.8 % Normal 20.5-60.0 [facility] Comment on above: Performed By: #### C BC #### [facility] [address] [place] [address] Dr. Osmar Cox MANUAL DIFF REQ NO Normal [facility] Comment on above: Performed By: #### C BC #### [facility] [address] [place] [address] Dr. Osmar Cox MCH (RBC) [Entitic mass] 24.4 pg Critically low 26.7-34.0 [facility] Comment on above: Performed By: #### C BC #### [facility] [address] [place] [address] Dr. Osmar Cox MCHC (RBC) [Mass/Vol] 30.7 g/dL Normal 29.9-35.2 [facility] Comment on above: Performed By: #### C BC #### [facility] [address] [place] [address] Dr. Osmar Cox MCV (RBC) [Entitic vol] 79.3 fL Critically low 81.0-99.0 [facility] Comment on above: Performed By: #### C BC #### [facility] [address] [place] [address] Dr. Osmar Cox MONO # 1.0 103/ul Critically high 0.3-0.8 [facility] Comment on above: Performed By: #### C BC #### [facility] [address] [place] [address] Dr. Osmar Cox Monocytes/100 WBC (Bld) 8.9 % Normal 1.7-12.0 [facility] Comment on above: Performed By: #### C BC #### [facility] [address] [place] [address] Dr. Osmar Cox NEUT # 7.6 103/ul Critically high 1.4-6.5 [facility] Comment on above: Performed By: #### C BC #### [facility] [address] [place] [address] [address] Osmar Cox Neutrophils/100 WBC (Bld) 66.6 % Normal 43.0-75.0 [facility] Comment on above: Performed By: #### C BC #### [facility] [address] [place] [address] [address] Osmar Cox Platelet mean volume (Bld) [Entitic vol] 8.8 fL Critically low 9.5-13.5 [facility] Comment on above: Performed By: #### C BC #### [facility] [address] [place] [address] Dr. Osmar Cox PLT 438 103/ul Normal 150-450 [facility] Comment on above: Performed By: #### C BC #### [facility] [address] [place] [address] Dr. Osmar Cox RBC 5.13 106/ul Normal 4.20-5.40 [facility] Comment on above: Performed By: #### C BC #### [facility] [address] [place] [address] [address] Osmar Cox WBC 11.3 103/ul Critically high 4.0-11.0 [facility] Comment on above: Performed By: #### C BC #### [facility] [address] [place] [address] Dr. Osmar Cox [facility]on SARS-CoV-2 (COVID-19) RNA ISABEL+probe Ql (Unsp spec) Not detected Normal NOT DETECTED [facility] Comment on above: Result Comment: This test is not yet approved or cleared by the [place] FDA. When there are no FDA-approved or cleared tests available, and other criteria are met, FDA can make tests available under an emergency access mechanism called an Emergency Use Authorization (EUA). The EUA for this test is supported by the [place] Counsel of Health and Human Service's (HHS's) declaration [...] SARS-CoV-2. Performed By: #### C [facility] #### [facility] [address] [place], [place] [address] CHEST HI RESOLUTIONon [...] CONSUELO TELLES Date: 2022-07-20 11:51 Normal [facility] BNPon 07-10-2022 Natriuretic peptide B (Bld) [Mass/Vol] 85.0 pg/mL Normal <=900.0 [facility] Comment on above: Performed By: #### B SAP ANALYST, BMP, LIVER, LIPID ####[facility] [address] [place], [place] [address]ZfDr. Osmar Cox LIPID PROFILEon 07-10-2022 CHOL-HDL RATIO NORM SEE BELOW Normal [facility] Comment on above: Result Comment: 3.3 - 4.4 LOW RISK 4.4 - 7.1 AVERAGE RISK 7.1 - 11.0 MODERATE RISK >11.0 HIGH RISK Performed By: #### B SAP ANALYST, BMP, LIVER, LIPID ####[facility] [address] [place] [id number]. Osmar Cox Cholesterol [Mass/Vol] 229 mg/dL Critically high <=200 [facility] Comment on above: Performed By: #### B SAP ANALYST, BMP, LIVER, LIPID ####[facility] [address] [place] [id number]. Lindalan Cox Cholesterol in HDL [Mass/Vol] 51 mg/dL Normal 40-60 [facility] Comment on above: Performed By: #### B SAP ANALYST, BMP, LIVER, LIPID ####[facility] [address] [place] [id number]. Osmar Cox Cholesterol in LDL [Mass/Vol] 130.2 mg/dL Normal [facility] Comment on above: Performed By: #### B SAP ANALYST, BMP, LIVER, LIPID ####[facility] [address] [place] [id number]. Osmar Cox Cholesterol.total/ Cholesterol in HDL [Mass ratio] 4.5 {ratio} Normal [facility] Comment on above: Performed By: #### B SAP ANALYST, BMP, LIVER, LIPID ####[facility] [address] [place] [id number]. Lindalan Cox HDL NORMAL > or = 60 mg/dl - LO W CARDIOVASCULAR RISK <40 mg/dl - HIGH CARDIOVASCULAR RISK Normal [facility] Comment on above: Performed By: #### B SAP ANALYST, BMP, LIVER, LIPID ####[facility] [address] [place] [id number]. Lindalan Cox LDL CALC NORMAL SEE BELOW Normal [facility] Comment on above: Result Comment: <100 mg/dl OPTIMAL 100 - 129 mg/dl NEAR OR ABOVE OPTIMAL 130 - 159 mg/dl BORDERLINE HIGH 160 - 189 mg/dl HIGH >190 mg/dl VERY HIGH Performed By: #### B SAP ANALYST, BMP, LIVER, LIPID ####[facility] [address] [place] [address]Dr. Osmar Cox Triglyceride [Mass/Vol] 239 mg/dL Critically high <=150 [facility] Comment on above: Performed By: #### B SAP ANALYST, BMP, LIVER, LIPID ####[facility] [address] [place] [address]Dr. Osmar Cox VLDL CALC 47.8 mg/dL Normal [facility] Comment on above: Performed By: #### B SAP ANALYST, BMP, LIVER, LIPID ####[facility] [address] [place] [address]Dr. Osmar Cox LIVER PROFILEon 07-10-2022 Albumin [Mass/Vol] 3.5 g/dL Normal 3.4-5.0 [facility] Comment on above: Performed By: #### B SAP ANALYST, BMP, LIVER, LIPID ####[facility] [address] [place] [address]Dr. Lindakenyon Cox Albumin/Globulin [Mass ratio] 1.0 {ratio} Normal [facility] Comment on above: Performed By: #### B SAP ANALYST, BMP, LIVER, LIPID ####[facility] [address] [place] [address]Dr. Osmar Cox ALP [Catalytic activity/Vol] 183 U/L Critically high 46-116 [facility] Comment on above: Performed By: #### B SAP ANALYST, BMP, LIVER, LIPID ####[facility] [address] [place] [address]Dr. Osmar Cox ALT [Catalytic activity/Vol] 32 U/L Normal 14-59 [facility] Comment on above: Performed By: #### B SAP ANALYST, BMP, LIVER, LIPID ####[facility] [address] [place] [address]Dr. Osmar Cox AST [Catalytic activity/Vol] 17 U/L Normal 15-37 [facility] Comment on above: Performed By: #### B SAP ANALYST, BMP, LIVER, LIPID ####[facility] [address] [place] [address]Dr. Osmar Cox BILI, CONJUGATED 0.1 mg/dL Normal 0.0-0.2 [facility] Comment on above: Performed By: #### B SAP ANALYST, BMP, LIVER, LIPID ####[facility] [address] [place] [address]Dr. Osmar Cox Bilirubin [Mass/Vol] 0.2 mg/dL Normal 0.2-1.0 [facility] Comment on above: Performed By: #### B SAP ANALYST, BMP, LIVER, LIPID ####[facility] [address] [place] [address]Dr. Osmar Cox Globulin (S) [Mass/Vol] 3.5 g/dL Normal [facility] Comment on above: Performed By: #### B SAP ANALYST, BMP, LIVER, LIPID ####[facility] [address] [place] [address]Dr. Osmar Cox Protein [Mass/Vol] 7.0 g/dL Normal 6.4-8.2 [facility] Comment on above: Performed By: #### B SAP ANALYST, BMP, LIVER, LIPID ####[facility] [address] [place] [address]Dr. Osmar Cox PROF CHEM 8 (BAS METB)on Anion gap [Moles/Vol] 11.6 mmol/L Normal [facility] Comment on above: Performed By: #### B SAP ANALYST, BMP, LIVER, LIPID #### [facility] [address] [place] [address] [address] Osmar Cox Calcium [Mass/Vol] 8.9 mg/dL Normal 8.5-10.1 [facility] Comment on above: Performed By: #### B SAP ANALYST, BMP, LIVER, LIPID #### [facility] [address] [place] [address] [address] Osmar Cox Chloride [Moles/Vol] 104 mmol/L Normal 98-107 [facility] Comment on above: Performed By: #### B SAP ANALYST, BMP, LIVER, LIPID #### [facility] [address] [place] [address] [address] Osmar Cox CO2 [Moles/Vol] 26.0 mmol/L Normal 21.0-32.0 [facility] Comment on above: Performed By: #### B SAP ANALYST, BMP, LIVER, LIPID #### [facility] [address] [place] [address] [address] Osmar Cox Creatinine [Mass/Vol] 0.80 mg/dL Normal 0.55-1.02 [facility] Comment on above: Performed By: #### B SAP ANALYST, BMP, LIVER, LIPID #### [facility] [address] [place] [address] [address] Osmar Cox EGFR-AF GHANAIAN >60 Normal >=60 [facility] Comment on above: Performed By: #### B SAP ANALYST, BMP, LIVER, LIPID #### [facility] [address] [place] [address] [address] Osmar Cox EGFR-NON AF GHANAIAN >60 Normal >=60 [facility] Comment on above: Performed By: #### B SAP ANALYST, BMP, LIVER, LIPID #### [facility] [address] [place] [address] [address] Osmar Cox Glucose [Mass/Vol] 100 mg/dL Normal 74-106 [facility] Comment on above: Performed By: #### B SAP ANALYST, BMP, LIVER, LIPID #### [facility] [address] [place] [address] [address] Osmar Cox Potassium [Moles/Vol] 4.6 mmol/L Normal 3.5-5.1 [facility] Comment on above: Performed By: #### B SAP ANALYST, BMP, LIVER, LIPID #### [facility] [address] [place] [address] [address] Osmar Cxo Sodium [Moles/Vol] 137 mmol/L Normal 136-145 [facility] Comment on above: Performed By: #### B SAP ANALYST, BMP, LIVER, LIPID #### [facility] [address] [place] [address] [address] Osmar Cox Urea nitrogen [Mass/Vol] 20.0 mg/dL Critically high 7.0-18.0 [facility] Comment on above: Performed By: #### B SAP ANALYST, BMP, LIVER, LIPID #### [facility] [address] [place] [address] [address] Osmar Cox Urea nitrogen/Creatinin e [Mass ratio] 25.0 mg/mg Normal [facility] Comment on above: Performed By: #### B SAP ANALYST, BMP, LIVER, LIPID #### [facility] [address] [place] [address] [address] Osmar Cox XR CHEST 2 Von [...] CONSUELO TELLES Date: 2022-06-04 19:26 Normal [facility] HEMOGLOBINon 06-02-2022 Hemoglobin (Bld) [Mass/Vol] 12.1 g/dL Normal 12.0-16.0 [facility] Comment on above: Performed By: #### H GB #### [facility] [address] [place] [address] [address] Osmar Cox XR CHEST 2 Von [...] CONSUELO TELLES Date: 2022-06-02 19:19 Normal [facility] NM STRESS/REST MULTIon 05-06 NM STRESS/REST MULTI Patient: EBONY MEDLEY Exam Date: 05/06/2022 : 1960 Gender:F Ordering : DR NOLA RAMIREZ . Admission #: [id number] Family : Order #: [id number] CLICK HERE TO VIEW EXAM RADIOLOGY REPORT [...] Kirk M.D. on 05/07/2022 at 11:04 Normal [facility] ECHOCARDIO M/2D COMPLETEon 0 04-29-2022 ECHOCARDIO M/2D COMPLETE Patient: EBONY MEDLEY Exam Date: 04/29/2022 : 1960 Gender:F Ordering : DR NOLA RAMIREZ . Admission #: [id number] Family : Order #: [id number] CLICK HERE TO VIEW EXAM ECHOCARDIOGRAM REPORT [...] M.D. on 04/30/2022 at 20:09 Normal [facility] LITHIUMon 03-20-2022 [place] (Eskalith(R)), Serum 0.6 mmol/L Normal 0.5-1.2 [facility] Comment on above: Result Comment: Plas ma concentration of 0.5 - 0.8 mmol/L are advised for long-term use; concentrations of up to 1.2 mmol/L may be necessary during acute treatment. Detection Limit = 0.1 <0.1 indicates None Detected Performed By: #### L ITHIUM ####[facility] [address] [place] [address]Dr. Osmar Cox LIPID PROFILEon 03-19-2022 CHOL-HDL RATIO NORM SEE BELOW Normal [facility] Comment on above: Result Comment: 3.3 - 4.4 LOW RISK 4.4 - 7.1 AVERAGE RISK 7.1 - 11.0 MODERATE RISK >11.0 HIGH RISK Performed By: #### T SH, T4, LIPID, CMP ####[facility] [address] [place] [address]Dr. Lindakenyon Cox Cholesterol [Mass/Vol] 269 mg/dL Critically high <=200 [facility] Comment on above: Performed By: #### T SH, T4, LIPID, CMP ####[facility] [address] [place], [place] [address]Dr. Osmar Cox Cholesterol in HDL [Mass/Vol] 48 mg/dL Normal 40-60 [facility] Comment on above: Performed By: #### T SH, T4, LIPID, CMP ####[facility] [address] [place], [place] [address]Dr. Osmar Cox Cholesterol in LDL [Mass/Vol] 145.8 mg/dL Normal [facility] Comment on above: Performed By: #### T SH, T4, LIPID, CMP ####[facility] [address] [place], [place] [address]Dr. Osmar Cox Cholesterol.total/ Cholesterol in HDL [Mass ratio] 5.6 {ratio} Normal [facility] Comment on above: Performed By: #### T SH, T4, LIPID, CMP ####[facility] [address] [place], [place] [address]Dr. Osmar Cox HDL NORMAL > or = 60 mg/dl - LO W CARDIOVASCULAR RISK <40 mg/dl - HIGH CARDIOVASCULAR RISK Normal [facility] Comment on above: Performed By: #### T SH, T4, LIPID, CMP ####[facility] [address] [place], [place] [address]Dr. Osmar Cox LDL CALC NORMAL SEE BELOW Normal [facility] Comment on above: Result Comment: <100 mg/dl OPTIMAL 100 - 129 mg/dl NEAR OR ABOVE OPTIMAL 130 - 159 mg/dl BORDERLINE HIGH 160 - 189 mg/dl HIGH >190 mg/dl VERY HIGH Performed By: #### T SH, T4, LIPID, CMP ####[facility] [address] [place] [address]Dr. Osmar Cox Triglyceride [Mass/Vol] 376 mg/dL Critically high <=150 [facility] Comment on above: Performed By: #### T SH, T4, LIPID, CMP ####[facility] [address] [place] [address]Dr. Osmar Cox VLDL CALC 75.2 mg/dL Normal [facility] Comment on above: Performed By: #### T SH, T4, LIPID, CMP ####[facility] [address] [place] [address]Dr. Osmar Cox PROF 14(COMP METB)on 022 Albumin [Mass/Vol] 3.4 g/dL Normal 3.4-5.0 [facility] Comment on above: Performed By: #### T SH, T4, LIPID, CMP ####[facility] [address] [place], [place] [address]Dr. Osmar Cox Albumin/Globulin [Mass ratio] 1.0 {ratio} Normal [facility] Comment on above: Performed By: #### T SH, T4, LIPID, CMP ####[facility] [address] [place] [address]Dr. Osmar Cox ALP [Catalytic activity/Vol] 118 U/L Critically high 46-116 [facility] Comment on above: Performed By: #### T SH, T4, LIPID, CMP ####[facility] [address] [place] [address]Dr. Osmar Cox ALT [Catalytic activity/Vol] 17 U/L Normal 14-59 [facility] Comment on above: Performed By: #### T SH, T4, LIPID, CMP ####[facility] [address] [place] [id number]. Osmar Cox Anion gap [Moles/Vol] 11.3 mmol/L Normal [facility] Comment on above: Performed By: #### T SH, T4, LIPID, CMP ####[facility] [id number] [place], [place] [address]Dr. Osmar oCx AST [Catalytic activity/Vol] 11 U/L Critically low 15-37 [facility] Comment on above: Performed By: #### T SH, T4, LIPID, CMP ####[facility] [address] [place], [place] [address]Dr. Osmar Cox Bilirubin [Mass/Vol] 0.2 mg/dL Normal 0.2-1.0 [facility] Comment on above: Performed By: #### T SH, T4, LIPID, CMP ####[facility] [address] [place], [place] [address]Dr. Osmar Cox Calcium [Mass/Vol] 8.7 mg/dL Normal 8.5-10.1 [facility] Comment on above: Performed By: #### T SH, T4, LIPID, CMP ####[facility] [address] [place], [place] [address]Dr. Osmar Cox Chloride [Moles/Vol] 106 mmol/L Normal 98-107 [facility] Comment on above: Performed By: #### T SH, T4, LIPID, CMP ####[facility] [address] [place], [place] [address]Dr. Osmar Cox CO2 [Moles/Vol] 23.6 mmol/L Normal 21.0-32.0 [facility] Comment on above: Performed By: #### T SH, T4, LIPID, CMP ####[facility] [address] [place], [place] [address]Dr. Osmar Cox Creatinine [Mass/Vol] 0.86 mg/dL Normal 0.55-1.02 [facility] Comment on above: Performed By: #### T SH, T4, LIPID, CMP ####[facility] Ok[address] [place], [place] [address]Dr. Osmar Cox EGFR-AF GHANAIAN >=60 Normal >=60 [facility] Comment on above: Performed By: #### T SH, T4, LIPID, CMP ####[facility] [address] [place] [address]Dr. Osmar Cox EGFR-NON AF GHANAIAN >=60 Normal >=60 [facility] Comment on above: Performed By: #### T SH, T4, LIPID, CMP ####[facility] [address] [place] [address]Dr. Osmar Cox Globulin (S) [Mass/Vol] 3.3 g/dL Normal [facility] Comment on above: Performed By: #### T SH, T4, LIPID, CMP ####[facility] [address] [place] [address]Dr. Osmar Cox Glucose [Mass/Vol] 104 mg/dL Normal 74-106 [facility] Comment on above: Performed By: #### T SH, T4, LIPID, CMP ####[facility] [address] [place], [place] [address]Dr. Osmar Cox Potassium [Moles/Vol] 4.9 mmol/L Normal 3.5-5.1 [facility] Comment on above: Performed By: #### T SH, T4, LIPID, CMP ####[facility] [address] [place], [place] [address]Dr. Osmar Cox Protein [Mass/Vol] 6.7 g/dL Normal 6.1-8.2 [facility] Comment on above: Performed By: #### T SH, T4, LIPID, CMP ####[facility] [address] [place], [place] [address]Dr. Osmar Cox Sodium [Moles/Vol] 136 mmol/L Normal 136-145 [facility] Comment on above: Performed By: #### T SH, T4, LIPID, CMP ####[facility] [address] [place], [place] [address]Dr. Osmar Cox Urea nitrogen [Mass/Vol] 25.0 mg/dL Critically high 7.0-18.0 [facility] Comment on above: Performed By: #### T SH, T4, LIPID, CMP ####[facility] [address] [place] [id number]. Osmar Cox Urea nitrogen/Creatinin e [Mass ratio] 29.1 mg/mg Normal [facility] Comment on above: Performed By: #### T SH, T4, LIPID, CMP ####[facility] [address] [place], [place] [address]Mq. Osmar Cox T4on 03-19-2022 T4 [Mass/Vol] 7.60 ug/dL Normal 4.80-13.90 [facility] Comment on above: Performed By: #### T SH, T4, LIPID, CMP ####[facility] [address] [place], [place] [address]Pi. Osmar Cox TSHon 03-19-2022 TSH 1.427 uIU/mL Normal 0.470-4.680 [facility] Comment on above: Performed By: #### T SH, T4, LIPID, CMP ####[facility] [address] [place] [id number]. Osmar Cox TSH RANGE SEE BELOW Normal [facility] Comment on above: Result Comment: <0.3 4 UIU/ml HYPERTHYROID 0.34-5.60 UIU/ml EUTHYROID >5.60 UIU/ml HYPOTHYROID Performed By: #### T SH, T4, LIPID, CMP ####[facility] [address] [place] [id number]. Osmar Cox Laboratory Studieson 018 Albumin [Mass/Vol] 3.8 g/dL 3.2-5.5 [facility] Albumin/Globulin [Mass ratio] 1.5 {ratio} [facility] ALP [Catalytic activity/Vol] 75 U/L 32-92 [facility] ALT No additional P-5'-P [Catalytic activity/Vol] 16 U/L 10-60 [facility] AST [Catalytic activity/Vol] 18 U/L 10-42 [facility] Basophils (Bld) [#/Vol] 0.1 10*3/uL 0.0-0.2 [facility] Basophils/100 WBC (Bld) 1.0 % [facility] Bilirubin [Mass/Vol] 0.5 mg/dL 0.3-1.2 [facility] Calcium [Mass/Vol] 9.2 mg/dL 8.2-10.2 [facility] Carbamazepine [Mass/Vol] < 2.0 ug/mL Low 4.0-12.0 [facility] Chloride [Moles/Vol] 103 mmol/L 95-114 [facility] CK [Catalytic activity/Vol] 46 U/L 22-269 [facility] CK.MB [Mass/Vol] 1.0 ng/mL 0.6-6.3 [facility] CK.MB Calc [Catalytic fraction] 2.1 0.00-2.50 [facility] CO2 [Moles/Vol] 24.9 mmol/L 22.0-30.0 [facility] Creatinine [Mass/Vol] 0.58 mg/dL 0.44-1.03 [facility] Eosinophils (Bld) [#/Vol] 0.2 10*3/uL 0.0-0.45 [facility] Eosinophils/100 WBC (Bld) 3.1 % [facility] Erythrocyte distribution width (RBC) [Ratio] 13.5 % 11.9-15.3 [facility] Ethanol [Mass/Vol] mg/dL [facility] Ethanol [Mass/Vol] TNP [facility] Comment on above: Test not performed GFR/1.73 sq M predicted among blacks MDRD (S/P/Bld) [Vol rate/Area] mL/min/{1.73_m2} [facility] Comment on above: GFR estimated refere nce range: According to KDOQI guidelines, <60 ml/min/1.73m2 is sufficient to diagnose a patient with chronic kidney disease. GFR/1.73 sq M predicted among non-blacks MDRD (S/P/Bld) [Vol rate/Area] mL/min/{1.73_m2} [facility] Globulin (S) [Mass/Vol] 2.6 g/dL [facility] Glucose [Mass/Vol] 96 mg/dL 70-100 [facility] Comment on above: ADA recommended refe rence range Random Glucose Reference Range is dependent on time and content of last meal. Glucose of more than 200 mg/dL in a nonstressed, ambulatory subject supports the diagnosis of Diabetes Mellitus. Hematocrit (Bld) [Volume fraction] 38.7 % 34.0-46.4 [facility] Hemoglobin (Bld) [Mass/Vol] 12.8 g/dL 11.8-15.4 [facility] Lymphocytes (Bld) [#/Vol] 2.1 10*3/uL 1.00-4.8 [facility] Lymphocytes/100 WBC (Bld) 33.0 % [facility] MCH (RBC) [Entitic mass] 28.3 pg 24.7-34.3 [facility] MCHC (RBC) [Mass/Vol] 33.1 g/dL 32.0-35.0 [facility] MCV (RBC) [Entitic vol] 85.4 fL 80-100 [facility] Monocytes (Bld) [#/Vol] 0.5 10*3/uL 0.0-0.8 [facility] Monocytes/100 WBC (Bld) 7.2 % [facility] Neutrophils (Bld) [#/Vol] 3.5 10*3/uL 1.8-7.7 [facility] Neutrophils/100 WBC (Bld) 55.7 % [facility] Pharmacy Creatinine Clearance (Chem 87.4588 [facility] Platelet mean volume (Bld) [Entitic vol] 6.9 fL 6.3-10.7 [facility] Platelets (Bld) [#/Vol] 270 10*3/uL 150-450 [facility] Potassium [Moles/Vol] 4.3 mmol/L 3.5-5.1 [facility] Protein [Mass/Vol] 6.4 g/dL 6.1-7.9 [facility] RBC (Bld) [#/Vol] 4.52 10*6/uL 3.60-5.00 [facility] Sodium [Moles/Vol] 136 mmol/L 136-146 [facility] Troponin I.cardiac [Mass/Vol] ng/mL 0-0.02 [facility] Comment on above: [place] Cut off value > or equal to 0.03 ng/mL in conjunction with clinical conditions of myocardial infarction. ([email or web address].org/guidelines) Urea nitrogen [Mass/Vol] 18 mg/dL 9-23 [facility] Valproate [Mass/Vol] 52.6 ug/mL 50.0-100.0 [facility] Comment on above: Last dose: - WBC (Bld) [#/Vol] 6.3 10*3/uL 3.8-11.6 [facility] Amphetamines Ql (U) Negative [facility] Barbiturates Ql (U) Negative [facility] Benzodiazepines Ql (U) Negative [facility] Bilirubin Ql (U) Negative [facility] Cannabinoids Screen Ql (U) Negative [facility] Comment on above: These are unconfirme d results and should not be used for legal purposes. Drug Cut-Off Concentration: AMPH 1000 ng/mL ALFREDO 200 ng/mL JAXON 200 ng/mL COCM 300 ng/mL OP 300 ng/mL PCP 25 ng/mL THC 20 ng/mL Clarity Refractometry automated (U) Clear [facility] Cocaine Ql (U) Negative [facility] Color (U) Yellow [facility] Glucose Auto test strip (U) [Mass/Vol] Normal mg/dL [facility] Hemoglobin Auto test strip Ql (U) Negative [facility] Ketones (U) [Mass/Vol] Negative [facility] Leukocyte esterase Auto test strip Ql (U) Negative [facility] Nitrite Ql (U) Negative [facility] Opiates Ql (U) Negative [facility] pH (U) 6.5 [pH] 5.0-9.0 [facility] Phencyclidine Ql (U) Negative [facility] Protein (U) [Mass/Vol] Negative [facility] Specific gravity (U) [Rel density] 1.018 1.001-1.030 [facility] Urobilinogen (U) [Mass/Vol] Normal mg/dL [facility] Vital Signs Date Time Vital Sign Value Performing Clinician Facility 09-02-2022 13:44-0400 Blood Pressure Location Ganga ZUNIGAAn [facility] 09-02-2022 13:44-0400 Diastolic blood pressure 82 mm[Hg] Ganga NILL [facility] 09-02-2022 13:44-0400 Heart rate 72 /min Ganga NILL [facility] 09-02-2022 13:44-0400 Respiratory rate 16 /min Ganga NILL [facility] 09-02-2022 13:44-0400 Systolic blood pressure 120 mm[Hg] Ganga NILL [facility] 03-07-2019 15:00-0400 Body Temperature 97.8 [degF] [facility] 03-07-2019 15:00-0400 BP Diastolic 88 mm[Hg] [facility] 03-07-2019 15:00-0400 BP Systolic 158 mm[Hg] [facility] 03-07-2019 15:00-0400 Pulse (Heart Rate) 78 /min [facility] 03-07-2019 15:00-0400 Pulse Oximetry 95 % [facility] 03-07-2019 15:00-0400 Respiratory Rate 16 /min [facility] Body weight [facility] NEGATED: Highlighted row BMI (Body Mass Index) [facility] NEGATED: Highlighted row Height [facility] Encounters Encounter Date Encounter Type Care Provider Facility Start: 01-29-2025 ambulatory Dereck De La Rosa acility:[facility] Start: 06-28-2024 End: 06-29-2024 ambulatory [facility] Start: 12-15-2023 End: 12-15-2023 ambulatory [facility] Start: 10-21-2022 End: 10-22-2022 ambulatory Ganga PEARCE Facility:[facility] Start: 10-21-2022 End: 10-21-2022 Patient encounter procedure Ganga PEARCE [facility] Start: 10-08-2022 Encounter for preprocedural laboratory examination DR GANGA PEARCE [facility] Start: 10-07-2022 End: 10-08-[address] GANGA PEARCE Facility:[facility] Start: 10-03-2022 End: 10-04-[address] GANGA PEARCE Facility:[facility] Start: 10-03-2022 End: 10-04-2022 Encounter for preprocedural laboratory examination DR GANGA PEARCE Facility:[facility] Start: 09-02-2022 End: 09-03-2022 ambulatory Ganga PEARCE Facility: [facility] Start: 09-02-2022 End: 09-02-2022 Patient encounter procedure Ganga PEARCE [facility] Start: 08-11-2022 End: 08-11-[address] NOLA [...] Start: 03-19-2022 End: 03-20-[address] DOCTOR [facility] Facility:[facility] Start: 03-15-2019 End: 03-15-2019 Patient encounter procedure Nola ramses [facility] Start: 03-07-2019 End: 03-07-2019 Admission to day surgery Nola Ramirez [facility] Start: 02-01-2018 End: 02-01-2018 Emergency department patient visit Nola ramses [facility] Start: 06-07-2014 End: 06-12-2014 Evaluation and management of inpatient [facility] Start: 06-17-2011 End: 06-20-2011 Evaluation and management of inpatient [facility] Start: 05-01-2011 End: 05-18-2011 Evaluation and management of inpatient [facility] Start: 05-27-2010 End: 06-26-2010 Discharged Recurring [facility] Start: 05-22-2010 End: 06-21-2010 Discharged Recurring [facility] Start: 04-22-2010 End: 05-21-2010 Discharged Recurring [facility] Start: 03-22-2010 End: 04-21-2010 [facility] Start: 02-20-2010 End: 03-21-2010 Discharged Recurring [facility] Start: 01-20-2010 End: 02-19-2010 Discharged Recurring [facility] Start: 01-20-2010 End: 02-19-2010 Discharged Recurring [facility] Start: 01-16-2010 End: 01-19-2010 Discharged Recurring Nola [facility] Start: 12-23-2009 End: 01-19-2010 Discharged Recurring Nola H[facility] Start: 11-23-2009 End: 12-22-2009 Discharged Recurring Nola ramses [facility] Start: 11-22-2009 End: 01-20-2010 Discharged Recurring Nola y [facility] Start: 10-22-2009 End: 11-21-2009 Discharged Recurring Nola H[facility] Start: 10-15-2009 End: 11-22-2009 Discharged Recurring Nola [facility] Start: 09-22-2009 End: 10-21-2009 Discharged Recurring Nola [facility] Start: 08-22-2009 End: 09-21-2009 Discharged Recurring Nola [facility] Start: 08-06-2009 End: 08-21-2009 Discharged Recurring Nola y [facility] Start: 07-02-2009 End: 07-22-2009 Discharged Recurring Nola [facility] Start: 06-04-2009 End: 06-21-2009 Discharged Recurring Nola [facility] Start: 04-22-2009 End: 05-21-2009 Discharged Recurring Nola y [facility] Start: 03-22-2009 End: 04-21-2009 Discharged Recurring Nola [facility] Start: 02-20-2009 End: 03-21-2009 Discharged Recurring Nola [facility] Start: 02-10-2009 End: 02-10-2009 Emergency department patient visit Nola H[facility] Start: 01-21-2009 End: 02-19-2009 Discharged Recurring Nola James [facility] Start: 12-24-2008 End: 01-19-2009 Discharged Recurring Nola [facility] Start: 11-23-2008 End: 12-22-2008 Discharged Recurring Nola [facility] Start: 10-22-2008 End: 11-21-2008 Discharged Recurring Nola [facility] Start: 09-22-2008 End: 10-21-2008 Discharged Recurring Nola ramses [facility] Start: 08-22-2008 End: 09-21-2008 Discharged Recurring Nola [facility] Start: 07-24-2008 End: 08-21-2008 Discharged Recurring Nola [facility] Start: 07-02-2008 End: 07-05-2008 Evaluation and management of inpatient Nola ramses [facility] Start: 06-22-2008 End: 07-22-2008 Discharged Recurring Nola H[facility] Start: 06-05-2008 End: 06-14-2008 Evaluation and management of inpatient Nola ramses [facility] Start: 05-29-2008 End: 06-21-2008 Discharged Recurring Nola ramses [facility] Start: 04-24-2008 End: 05-21-2008 Discharged Recurring Nola [facility] Start: 03-22-2008 End: 04-21-2008 Discharged Recurring Nola [facility] Start: 02-21-2008 End: 03-21-2008 Discharged Recurring Nola Ramirez [facility] Start: 02-14-2008 End: 02-20-2008 Discharged Recurring Nola Ramirez [facility] Start: 12-23-2007 End: 01-20-2008 Discharged Recurring Nola Ramirez [facility] Start: 12-20-2007 End: 12-23-2007 Evaluation and management of inpatient Nola Ramirez [facility] Start: 11-22-2007 End: 12-22-2007 Discharged Recurring Nola Ramirez [facility] Start: 10-22-2007 End: 11-21-2007 Discharged Recurring Nola Ramirez [facility] Start: 09-22-2007 End: 10-21-2007 Discharged Recurring Nola Ramirez [facility] Start: 08-22-2007 End: 09-21-2007 Discharged Recurring Nola Ramirez [facility] Start: 07-23-2007 End: 08-21-2007 Discharged Recurring Nola Ramirez [facility] Start: 06-22-2007 End: 07-22-2007 Discharged Recurring Nola Ramirez [facility] Start: 05-22-2007 End: 06-21-2007 Discharged Recurring Nola ramses [facility] Start: 04-28-2007 End: 04-28-2007 Emergency department patient visit Nola Ramirez [facility] Start: 04-28-2007 End: 04-28-2007 Patient encounter procedure Nola ramses [facility] Start: 04-28-2007 End: 05-21-2007 Discharged Recurring Nola [facility] Start: 03-01-2002 End: 03-21-2002 Discharged Recurring Nola [facility] Start: 03-01-2002 End: 03-04-2002 [facility] Start: 03-24-2001 End: 03-24-2001 Discharged Recurring Nola [facility] Start: 03-24-2001 End: 04-04-2001 [facility] Start: 09-27-1996 End: 09-30-1996 Evaluation and management of inpatient [facility] Start: 08-19-1995 End: 08-19-1995 [facility] Start: 09-27-1993 End: 09-27-1993 Patient encounter procedure [facility] Procedures Date Procedure Procedure Detail [...] NILL Payers Date Payer Category Payer Unknown [id number] 2023 Self-pay 1960 Medicaid [id number] 1960 Medicare [id number] 1960 Self-pay [id number] 1959 Unknown [id number] 2.16.8 40.1.206733.3.579.2.647 1959 Unknown [id number] 2.16.84 0.1.021626.3.579.2.593 1959 Unknown [id number] 2.16.84 0.1.695160.3.579.2.593 1959 Unknown [id number] 2.16.84 0.1.309956.3.579.2.593 1959 Unknown [id number] 2.16.84 0.1.959221.3.579.2.593 1959 Unknown [id number] 2.16.84 0.1.183678.3.579.2.593 1959 Unknown [id number] 2.16.84 0.1.094720.3.579.2.593 1959 Unknown [id number] 2.16.84 0.1.871998.3.579.2.593 1959 Unknown [id number] 2.16.84 0.1.290938.3.579.2.593 1959 Unknown [id number] 2.16.84 0.1.895634.3.579.2.593 1959 Unknown [id number] 2.16.84 0.1.213030.3.579.2.593 1959 Unknown [id number] 2.16.84 0.1.471176.3.579.2.593 1959 Unknown [id number] 2.16.84 0.1.233045.3.579.2.593 1959 Unknown [id number] 2.16.84 0.1.584073.3.579.2.593 1959 Unknown [id number] 2.16.84 0.1.691640.3.579.2.593 1959 Unknown [id number] 2.16.84 0.1.894514.3.579.2.593 1959 Unknown [id number] 2.16.8 40.1.829315.3.579.2.727 1959 Unknown [id number] 2.16.8 40.1.766295.3.579.2.727 1959 Unknown [id number] 2.16.8 40.1.541264.3.579.2.727 Medicare [id number] Unknown [id number] 2.16.8 40.1.147884.3.579.2.531 Social History Date Type Detail Facility Start: 09-02-2022 Tobacco smoking status Ex-smoker (fi nding) [facility] Tobacco smoking status Never Gener al [facility] Sex Assigned At Female [facility] Medical Equipment Procedure Code Equipment Code Equipment Origin al Text Equipment Identifier Dates HERNIA REPAIR, R OBOT ASSISTED CAIT LEHMAN, Ganga Salgado 12/05/20 Non Biological Abdomen {[id number] [facility] Start: 12-05-2020 Functional Status Date Assessment Result Facility 09-02-2022 Functional Status N/A [facility] Progress note 06-28-2024 Note Date & Type Note Facility 06-28-2024 Note [facility] Subjective Ebony Medley is [...] pain. No palpit (more content not included)... [facility] Progress note 12-15-2023 Note Date & Type Note Facility 12-15-2023 Note [facility] Subjective Ebony Medley is [...] is not ill-ap (more content not included)... [facility] Clinical Note 10-07-2022 Note Date & [...] good condition. CC: Nola Ramirez M.D. [facility] Clinical Note 09-02-2022 Note Date & [...] Allergies Social Hi (more content not included)... [facility] Comment on above: Result Comment: Elec tronically Signed By: CAIT LEHMAN, Ganga Valencia\Date and Time Signed: 09/02/22 15:31 EDT Evaluation + Plan note Note Date & Type Note Facility Evaluation + Plan note No data available for this section [facility] Discharge instructions Note Date & Type Note Facility Hospital Discharge instructions No data available for this section [facility] Progress note Note Date & Type Note [...] section and content) DATE CREATED AUTHOR 07/31/2022 [facility] DATE CREATED AUTHOR AUTHOR'S ORGANIZ ATION 10/14/[address] [facility] DATE CREATED AUTHOR AUTHOR'S ORGANIZ ATION 10/22/2022 [facility] DATE CREATED AUTHOR AUTHOR'S ORGANIZ ATION 07/19/2024 [facility] DATE CREATED AUTHOR AUTHOR'S ORGANIZ ATION 02/07/2025 [facility] Patient Care team informatio n (unrecognized section and content) Personnel Name: Nola Ramirez MD Address: Address: [address] [place] [address] Name: [employer] Personnel Name: Nola Ramirez MD Address: Address: [address] [place] [address] Name: Toya Yard Hand, Amy FOR RECORDS PERTAINING TO PATIENTS WHO [...] BE BASED ON THE PRIMARY CLINICAL RECORDS. [facility] [employer] provides no warranty or guarantee of the accuracy or completeness of information in this document.
[2025-02-19 09:08] LABS: Estimated GFR (African America >60 (>=60 mL/min/1.73m^2); Estimated GFR (Non-African Ame >60 (>=60 mL/min/1.73m^2)
== END 2025-02-19 08:14 | disposition home or self-care (01) ==
LOC: LAB 08:14
PROVIDERS: PCP Family Medicine
DX: Z79.899 Other long term (current) drug therapy (principal)
CPT/HCPCS: 36415; 80178; 82565; 84520

== ENCOUNTER 2025-02-19 08:21 | Outpatient (OUT) | payer MEDICARE, SELFPAY ==
--- OUTSIDE RECORDS SUMMARY | 2025-02-19 08:31 | XMS_ITS | CCD ---
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 Role Phone Nola Ramirez Primary Care [...] Date of Onset Reaction(s) Facility (1 source) 01650,00 Drug allergy (disorder) 1 [facility] Repository (1 source) oxyCODONE; Translations: [OxyCODONE Hydrochloride] Drug Allergy [facility] Repository (1 source) No Known Medication Allergies; Translations: [No Known Medication Allergies] Propensity to adverse reactions (disorder) [facility] Repository Medications Current Medications Medication Drug [...] 300 mg by mouth once aarti y Hiram Carbonate 300 MG Oral Daily June 13, 2019 Active Start: 06-13-2019 take 600 mg by mouth at bedtim e Hiram Carbonate 600 MG Oral Bedtime June 13, 2019 Active Start: 06-01-2019 End: 06-13-2019 take 300 mg by mouth at bedtime Hiram Carbonate 300 MG Oral Bedtime June 01, 2019 June 13, 2019 Discontinued Start: 08-15-2018 End: 06-01-2019 take 150 mg by mouth at bedtime Hiram Carbonate 150 MG Oral Bedtime February 27, [...] 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 [facility] Office Visiton 06-28-2024 Follow-up visit [id number] Julia Medley Nneka 1960 F Date Provider Department Center 06/28/2024 JESSIE RIVERA Family History Problem Relation Age of Onset Hypertension Mother Hypertension Father Family Status - Relation Status Age at Mother Father Level of Service:77728 [place] OFFICE/OUTPATIENT ESTABLISHED MOD MDM 30 MIN Normal [facility] Office Visiton 12-15-2023 Follow-up visit [id number] Julia Medley joséreyna 1960 F Date Provider Department Center 12/15/2023 JESSIE RIVERA Family History Problem Relation Age of Onset Hypertension Mother Hypertension Father Family Status - Relation Status Age at Mother Father Level of Service:01610 [place] OFFICE/OUTPATIENT ESTABLISHED MOD MDM 30 MIN Normal [facility] General Surgery Office/Clini c Noteon 10-21-2022 [...] 2: Mother. Hypertension: Mother and Father. Normal [facility] Comment on above: Result Comment: Elec tronically Signed By: CAIT LEHMAN, Ganga Valencia\Date and Time Signed: 10/21/22 15:25 EST Operative Reporton 2 Operative Report [id number]#1.00CD:127 Normal [facility] Operative Reporton 2 Operative Report [id number]#1.00CD:127 [facility] Pathology Noteon 10-09-2022 Pathology Note [id number]#1.00CD:127 [facility] Lab Reportson 10-05-2022 Lab Reports [id number]#1.00CD:127 Normal [facility]22 SARS-CoV-2 (COVID-19) RNA ISABEL+probe Ql (Unsp spec) Not detected Normal NOT DETECTED [facility] Comment on above: Result Comment: This test is not yet approved or cleared by the [place] FDA. When there are no FDA-approved or cleared tests available, and other criteria are met, FDA can make tests available under an emergency access mechanism called an Emergency Use Authorization (EUA). The EUA for this test is supported by the [place] of Health and Human Service's (HHS's) declaration [...] with SARS-CoV-2. Performed By: #### C [facility] #### [facility] [address] [place] [address] Dr. Osmar Cox Consent for Procedure/Surger yon 09-03-2022 Consent for Procedure/Surgery [id number]#1.00CD:127 Normal [facility] Ambulatory Visit Summaryon 1 Ambulatory Visit [...] of Clostridium difficile infection Memory loss Normal [facility] Outside [facility] Correspo ndenceon 08-19-2022 Outside Hospital Correspondence [id number]#1.00CD:127 Normal [facility] RAD - CT Reporton 08-19-2022 RAD - CT Report [id number]#1.00CD:127 Normal [facility] RAD - MISCon 08-19-2022 RAD - MISC [id number]#1.00CD:127 Normal [facility] Physician Referralon 022 Physician Referral [id number]#1.00CD:127 Normal [facility]on 07-24 SARS-CoV-2 (COVID-19) RNA ISABEL+probe Ql (Unsp spec) Not detected Normal NOT DETECTED [facility] Comment on above: Result Comment: This test is not yet approved or cleared by the [place] FDA. When there are no FDA-approved or cleared tests available, and other criteria are met, FDA can make tests available under an emergency access mechanism called an Emergency Use Authorization (EUA). The EUA for this test is supported by the [place] of Health and Human Service's (HHS's) declaration [...] with SARS-CoV-2. Performed By: #### C [facility] #### [facility] [address] [place] [address] Dr. Osmar Cox XR MODIFIED BARIUM SWALLOWon [...] NICOLAS KIRK Date: 2022-08-06 15:18 Normal [facility] Cardiovascular Lab Reporton 07-29-2022 Cardiovascular Lab Report [facility] Patient Name: Ebony Medley [facility] MR #: [id number] Physician: Jessie De Oliveira of [facility] Medicine Service Date: 07/28/2022 Division of Birthdate: 1960 Cardiology Room #: [facility] Cardiovascular Services [place] [address] Cardiovascular Laboratory Report INDICATIONS: The patient is [...] signed informed consent. 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 The right neck area was prepped and draped in usual fashion. Micropuncture technique and ultrasound guidance were used for access in the right internal jugular vein. A 6-Cambodian x 11 cm sheath was placed. A 6-Cambodian Suarez catheter was used for right heart catheterization and measurement of pressures and calculation of cardiac output using the estimated Karina method. Suarez catheter was removed. Micropuncture technique and ultrasound guidance were used for access in the right radial artery. A 5-Cambodian x 11 cm slender sheath was advanced. Verapamil was given through the sheath and heparin was administered intravenously. Bilateral selective coronary angiography was then performed using 5-Cambodian JL 3.5 and JR5 diagnostic catheters. Catheters [...] Arnett M.D. Date Trans: 07/29/2022 03:31 A/gladys [id number] cc: Nola Ramirez M.D. [place] [id number] [facility] [id number] Normal [facility] CBC AUTO DIFFon 07-24-2022 BASO # 0.1 103/ul Normal 0.0-0.1 [facility] Comment on above: Performed By: #### C BC #### [facility] [address] [place] [address] Dr. Osmar Cox Basophils/100 WBC (Bld) 0.9 % Normal 0.2-2.0 [facility] Comment on above: Performed By: #### C BC #### [facility] [address] [place] [address] Dr. Osmar Cox EO # 0.0 103/ul Normal 0.0-0.7 [facility] Comment on above: Performed By: #### C BC #### [facility] [address] [place] [address] Dr. Osmar Cox Eosinophils/100 WBC (Bld) 0.1 % Critically low 0.9-7.0 [facility] Comment on above: Performed By: #### C BC #### [facility] [address] [place] [address] Dr. Osmar Cox Erythrocyte distribution width (RBC) [Ratio] 15.4 % Critically high 11.0-15.0 [facility] Comment on above: Performed By: #### C BC #### [facility] [address] [place] [address] Dr. Osmar Cox Hematocrit (Bld) [Volume fraction] 40.7 % Normal 36.0-48.0 [facility] Comment on above: Performed By: #### C BC #### [facility] [address] [place] [address] Dr. Osmar Cox Hemoglobin (Bld) [Mass/Vol] 12.5 g/dL Normal 12.0-16.0 [facility] Comment on above: Performed By: #### C BC #### [facility] [address] [place] [address] Dr. Osmar Cox IG # 0.08 10e3/ul Critically high 0.00-0.03 [facility] Comment on above: Performed By: #### C BC #### [facility] [address] [place] [address] Dr. Osmar Cox IG % 0.7 % Critically high 0.0-0.5 [facility] Comment on above: Performed By: #### C BC #### [facility] [address] [place] [address] Dr. Osmar Cox LYMPH # 2.6 103/ul Normal 1.2-3.8 [facility] Comment on above: Performed By: #### C BC #### [facility] [address] [place] [address] Dr. Osmar Cox Lymphocytes/100 WBC (Bld) 22.8 % Normal 20.5-60.0 [facility] Comment on above: Performed By: #### C BC #### [facility] [address] [place] [address] Dr. Osmar Cox MANUAL DIFF REQ NO Normal [facility] Comment on above: Performed By: #### C BC #### [facility] [address] [place] [address] Dr. Osmar Cox MCH (RBC) [Entitic mass] 24.4 pg Critically low 26.7-34.0 [facility] Comment on above: Performed By: #### C BC #### [facility] [address] [place] [address] Dr. Osmar Cox MCHC (RBC) [Mass/Vol] 30.7 g/dL Normal 29.9-35.2 [facility] Comment on above: Performed By: #### C BC #### [facility] [address] [place] [address] Dr. Osmar Cox MCV (RBC) [Entitic vol] 79.3 fL Critically low 81.0-99.0 [facility] Comment on above: Performed By: #### C BC #### [facility] [address] [place] [address] Dr. Osmar Cox MONO # 1.0 103/ul Critically high 0.3-0.8 [facility] Comment on above: Performed By: #### C BC #### [facility] [address] [place] [address] Dr. Osmar Cox Monocytes/100 WBC (Bld) 8.9 % Normal 1.7-12.0 [facility] Comment on above: Performed By: #### C BC #### [facility] [address] [place] [address] Dr. Osmar Cox NEUT # 7.6 103/ul Critically high 1.4-6.5 [facility] Comment on above: Performed By: #### C BC #### [facility] [address] [address] [address] Osmar Cox Neutrophils/100 WBC (Bld) 66.6 % Normal 43.0-75.0 [facility] Comment on above: Performed By: #### C BC #### [facility] [address] [address] [address] Osmar Cox Platelet mean volume (Bld) [Entitic vol] 8.8 fL Critically low 9.5-13.5 [facility] Comment on above: Performed By: #### C BC #### [facility] [address] [place] [address] Dr. Osmar Cox PLT 438 103/ul Normal 150-450 [facility] Comment on above: Performed By: #### C BC #### [facility] [address] [place] [address] Dr. Osmar Cox RBC 5.13 106/ul Normal 4.20-5.40 [facility] Comment on above: Performed By: #### C BC #### [facility] [address] [place] [address] [address] Osmar Cox WBC 11.3 103/ul Critically high 4.0-11.[address] [facility] Comment on above: Performed By: #### C BC #### [facility] [address] [place] [address] Dr. Osmar Cox [facility]on SARS-CoV-2 (COVID-19) RNA ISABEL+probe Ql (Unsp spec) Not detected Normal NOT DETECTED [facility] Comment on above: Result Comment: This test is not yet approved or cleared by the [place] FDA. When there are no FDA-approved or cleared tests available, and other criteria are met, FDA can make tests available under an emergency access mechanism called an Emergency Use Authorization (EUA). The EUA for this test is supported by the [place] of Health and Human Service's (HHS's) declaration [...] SARS-CoV-2. Performed By: #### C [facility] #### [facility] [address] [place], [place] [address] CHEST HI RESOLUTIONon [...] CONSUELO TELLES Date: 2022-07-20 11:51 Normal [facility] BNPon 07-10-2022 Natriuretic peptide B (Bld) [Mass/Vol] 85.0 pg/mL Normal <=900.0 [facility] Comment on above: Performed By: #### B ELASTIC ATTACHER ZIGZAG, BMP, LIVER, LIPID ####[facility] [address] [place], [place] [address]ChDr. Osmar Cox LIPID PROFILEon 07-10-2022 CHOL-HDL RATIO NORM SEE BELOW Normal [facility] Comment on above: Result Comment: 3.3 - 4.4 LOW RISK 4.4 - 7.1 AVERAGE RISK 7.1 - 11.0 MODERATE RISK >11.0 HIGH RISK Performed By: #### B ELASTIC ATTACHER ZIGZAG, BMP, LIVER, LIPID ####[facility] [address] [place] [id number]. Osmar Cox Cholesterol [Mass/Vol] 229 mg/dL Critically high <=200 [facility] Comment on above: Performed By: #### B ELASTIC ATTACHER ZIGZAG, BMP, LIVER, LIPID ####[facility] [address] [place] [id number]. Lindalan Cox Cholesterol in HDL [Mass/Vol] 51 mg/dL Normal 40-60 [facility] Comment on above: Performed By: #### B ELASTIC ATTACHER ZIGZAG, BMP, LIVER, LIPID ####[facility] [address] [place] [id number]. Osmar Cox Cholesterol in LDL [Mass/Vol] 130.2 mg/dL Normal [facility] Comment on above: Performed By: #### B ELASTIC ATTACHER ZIGZAG, BMP, LIVER, LIPID ####[facility] [address] [place] [id number]. Osmar Cox Cholesterol.total/ Cholesterol in HDL [Mass ratio] 4.5 {ratio} Normal [facility] Comment on above: Performed By: #### B ELASTIC ATTACHER ZIGZAG, BMP, LIVER, LIPID ####[facility] [address] [place] [id number]. Lindalan Cox HDL NORMAL > or = 60 mg/dl - LO W CARDIOVASCULAR RISK <40 mg/dl - HIGH CARDIOVASCULAR RISK Normal [facility] Comment on above: Performed By: #### B ELASTIC ATTACHER ZIGZAG, BMP, LIVER, LIPID ####[facility] [address] [place] [id number]. Lindalan Cox LDL CALC NORMAL SEE BELOW Normal [facility] Comment on above: Result Comment: <100 mg/dl OPTIMAL 100 - 129 mg/dl NEAR OR ABOVE OPTIMAL 130 - 159 mg/dl BORDERLINE HIGH 160 - 189 mg/dl HIGH >190 mg/dl VERY HIGH Performed By: #### B ELASTIC ATTACHER ZIGZAG, BMP, LIVER, LIPID ####[facility] [address] [place] [address]Dr. Osmar Cox Triglyceride [Mass/Vol] 239 mg/dL Critically high <=150 [facility] Comment on above: Performed By: #### B ELASTIC ATTACHER ZIGZAG, BMP, LIVER, LIPID ####[facility] [address] [place] [address]Dr. Osmar Cox VLDL CALC 47.8 mg/dL Normal [facility] Comment on above: Performed By: #### B ELASTIC ATTACHER ZIGZAG, BMP, LIVER, LIPID ####[facility] [address] [place] [address]Dr. Osmar Cox LIVER PROFILEon 07-10-2022 Albumin [Mass/Vol] 3.5 g/dL Normal 3.4-5.0 [facility] Comment on above: Performed By: #### B ELASTIC ATTACHER ZIGZAG, BMP, LIVER, LIPID ####[facility] [address] [place] [address]Dr. Lindakenyon Cox Albumin/Globulin [Mass ratio] 1.0 {ratio} Normal [facility] Comment on above: Performed By: #### B ELASTIC ATTACHER ZIGZAG, BMP, LIVER, LIPID ####[facility] [address] [place] [address]Dr. Osmar Cox ALP [Catalytic activity/Vol] 183 U/L Critically high 46-116 [facility] Comment on above: Performed By: #### B ELASTIC ATTACHER ZIGZAG, BMP, LIVER, LIPID ####[facility] [address] [place] [address]Dr. Osmar Cox ALT [Catalytic activity/Vol] 32 U/L Normal 14-59 [facility] Comment on above: Performed By: #### B ELASTIC ATTACHER ZIGZAG, BMP, LIVER, LIPID ####[facility] [address] [place] [address]Dr. Osmar Cox AST [Catalytic activity/Vol] 17 U/L Normal 15-37 [facility] Comment on above: Performed By: #### B ELASTIC ATTACHER ZIGZAG, BMP, LIVER, LIPID ####[facility] [address] [place] [address]Dr. Osmar Cox BILI, CONJUGATED 0.1 mg/dL Normal 0.0-0.[address] [facility] Comment on above: Performed By: #### B ELASTIC ATTACHER ZIGZAG, BMP, LIVER, LIPID ####[facility] [address] [place] [address]Dr. Osmar Cox Bilirubin [Mass/Vol] 0.2 mg/dL Normal 0.2-1.0 [facility] Comment on above: Performed By: #### B ELASTIC ATTACHER ZIGZAG, BMP, LIVER, LIPID ####[facility] [address] [place] [address]Dr. Osmar Cox Globulin (S) [Mass/Vol] 3.5 g/dL Normal [facility] Comment on above: Performed By: #### B ELASTIC ATTACHER ZIGZAG, BMP, LIVER, LIPID ####[facility] [address] [place] [address]Dr. Osmar Cox Protein [Mass/Vol] 7.0 g/dL Normal 6.4-8.2 [facility] Comment on above: Performed By: #### B ELASTIC ATTACHER ZIGZAG, BMP, LIVER, LIPID ####[facility] [address] [place] [address]Dr. Osmar Cox PROF CHEM 8 (BAS METB)on Anion gap [Moles/Vol] 11.6 mmol/L Normal [facility] Comment on above: Performed By: #### B ELASTIC ATTACHER ZIGZAG, BMP, LIVER, LIPID #### [facility] [address] [place] [address] [address] Osmar Cox Calcium [Mass/Vol] 8.9 mg/dL Normal 8.5-10.1 [facility] Comment on above: Performed By: #### B ELASTIC ATTACHER ZIGZAG, BMP, LIVER, LIPID #### [facility] [address] [place] [address] [address] Osmar Cox Chloride [Moles/Vol] 104 mmol/L Normal 98-107 [facility] Comment on above: Performed By: #### B ELASTIC ATTACHER ZIGZAG, BMP, LIVER, LIPID #### [facility] [address] [address] [address] Osmar Cox CO2 [Moles/Vol] 26.0 mmol/L Normal 21.0-32.0 [facility] Comment on above: Performed By: #### B ELASTIC ATTACHER ZIGZAG, BMP, LIVER, LIPID #### [facility] [address] [address] [address] Osmar Cox Creatinine [Mass/Vol] 0.80 mg/dL Normal 0.55-1.02 [facility] Comment on above: Performed By: #### B ELASTIC ATTACHER ZIGZAG, BMP, LIVER, LIPID #### [facility] [address] [place] [address] [address] Osmar Cox EGFR-AF MARSHALLESE >60 Normal >=[address] [facility] Comment on above: Performed By: #### B ELASTIC ATTACHER ZIGZAG, BMP, LIVER, LIPID #### [facility] [address] [address] [address] Osmar Cox EGFR-NON AF MARSHALLESE >60 Normal >=60 [facility] Comment on above: Performed By: #### B ELASTIC ATTACHER ZIGZAG, BMP, LIVER, LIPID #### [facility] [address] [address] [address] Osmar Cox Glucose [Mass/Vol] 100 mg/dL Normal 74-106 [facility] Comment on above: Performed By: #### B ELASTIC ATTACHER ZIGZAG, BMP, LIVER, LIPID #### [facility] [address] [address] [address] Osmar Cox Potassium [Moles/Vol] 4.6 mmol/L Normal 3.5-5.1 [facility] Comment on above: Performed By: #### B ELASTIC ATTACHER ZIGZAG, BMP, LIVER, LIPID #### [facility] [address] [address] [address] Osmar Cox Sodium [Moles/Vol] 137 mmol/L Normal 136-145 [facility] Comment on above: Performed By: #### B ELASTIC ATTACHER ZIGZAG, BMP, LIVER, LIPID #### [facility] [address] [address] [address] Osmar Cox Urea nitrogen [Mass/Vol] 20.0 mg/dL Critically high 7.0-18.0 [facility] Comment on above: Performed By: #### B ELASTIC ATTACHER ZIGZAG, BMP, LIVER, LIPID #### [facility] [address] [address] [address] Osmar Cox Urea nitrogen/Creatinin e [Mass ratio] 25.0 mg/mg Normal [facility] Comment on above: Performed By: #### B ELASTIC ATTACHER ZIGZAG, BMP, LIVER, LIPID #### [facility] [address] [address] [address] Osmar Cox XR CHEST 2 Von [...] CONSUELO TELLES Date: 2022-06-04 19:26 Normal [facility] HEMOGLOBINon 06-02-2022 Hemoglobin (Bld) [Mass/Vol] 12.1 g/dL Normal 12.0-16.0 [facility] Comment on above: Performed By: #### H GB #### [facility] [address] [address] [address] Osmar Cox XR CHEST 2 Von [...] CONSUELO TELLES Date: 2022-06-02 19:19 Normal [facility] NM STRESS/REST MULTIon 05-06 NM STRESS/REST MULTI Patient: EBONY MEDLEY Exam Date: 05/06/2022 : 1960 Gender:F Ordering : DR NOLA RAMIREZ . Admission #: [id number] Family : Order #: [id number] CLICK HERE TO VIEW EXAM RADIOLOGY REPORT [...] Kirk M.D. on 05/07/2022 at 11:[address] [facility] ECHOCARDIO M/2D COMPLETEon 0 04-29-2022 ECHOCARDIO M/2D COMPLETE Patient: EBONY MEDLEY Exam Date: 04/29/2022 : 1960 Gender:F Ordering : DR NOLA RAMIREZ . Admission #: [id number] Family : Order #: [id number] CLICK HERE TO VIEW EXAM ECHOCARDIOGRAM REPORT [...] M.D. on 04/30/2022 at 20:09 Normal [facility] LITHIUMon 03-20-2022 Hiram (Eskalith(R)), Serum 0.6 mmol/L Normal 0.5-1.2 [facility] Comment on above: Result Comment: Plas ma concentration of 0.5 - 0.8 mmol/L are advised for long-term use; concentrations of up to 1.2 mmol/L may be necessary during acute treatment. Detection Limit = 0.1 <0.1 indicates None Detected Performed By: #### L ITHIUM ####[facility] [address] [place] [address]Dr. Osmar Cox LIPID PROFILEon 03-19-2022 CHOL-HDL RATIO NORM SEE BELOW Normal [facility] Comment on above: Result Comment: 3.3 - 4.4 LOW RISK 4.4 - 7.1 AVERAGE RISK 7.1 - 11.0 MODERATE RISK >11.0 HIGH RISK Performed By: #### T SH, T4, LIPID, CMP ####[facility] [address] [place] [address]Dr. Lindakenyon Cox Cholesterol [Mass/Vol] 269 mg/dL Critically high <=200 [facility] Comment on above: Performed By: #### T SH, T4, LIPID, CMP ####[facility] [address] [place], [place] [address]Dr. Osmar Cox Cholesterol in HDL [Mass/Vol] 48 mg/dL Normal 40-60 [facility] Comment on above: Performed By: #### T SH, T4, LIPID, CMP ####[facility] [address] [place], [place] [address]Dr. Osmar Cox Cholesterol in LDL [Mass/Vol] 145.8 mg/dL Normal [facility] Comment on above: Performed By: #### T SH, T4, LIPID, CMP ####[facility] [address] [place], [place] [address]Dr. Osmar Cox Cholesterol.total/ Cholesterol in HDL [Mass ratio] 5.6 {ratio} Normal [facility] Comment on above: Performed By: #### T SH, T4, LIPID, CMP ####[facility] [address] [place], [place] [address]Dr. Osmar Cox HDL NORMAL > or = 60 mg/dl - LO W CARDIOVASCULAR RISK <40 mg/dl - HIGH CARDIOVASCULAR RISK Normal [facility] Comment on above: Performed By: #### T SH, T4, LIPID, CMP ####[facility] [address] [place], [place] [address]Dr. Osmar Cox LDL CALC NORMAL SEE BELOW Normal [facility] Comment on above: Result Comment: <100 mg/dl OPTIMAL 100 - 129 mg/dl NEAR OR ABOVE OPTIMAL 130 - 159 mg/dl BORDERLINE HIGH 160 - 189 mg/dl HIGH >190 mg/dl VERY HIGH Performed By: #### T SH, T4, LIPID, CMP ####[facility] [address] [place] [address]Dr. Omsar Cox Triglyceride [Mass/Vol] 376 mg/dL Critically high <=150 [facility] Comment on above: Performed By: #### T SH, T4, LIPID, CMP ####[facility] [address] [place] [address]Dr. Osmar Cox VLDL CALC 75.2 mg/dL Normal [facility] Comment on above: Performed By: #### T SH, T4, LIPID, CMP ####[facility] [address] [place] [address]Dr. Osmar Cox PROF 14(COMP METB)on 022 Albumin [Mass/Vol] 3.4 g/dL Normal 3.4-5.0 [facility] Comment on above: Performed By: #### T SH, T4, LIPID, CMP ####[facility] [address] [place], [place] [address]Dr. Osmar Cox Albumin/Globulin [Mass ratio] 1.0 {ratio} Normal [facility] Comment on above: Performed By: #### T SH, T4, LIPID, CMP ####[facility] [address] [place] [address]Dr. Osmar Cox ALP [Catalytic activity/Vol] 118 U/L Critically high 46-116 [facility] Comment on above: Performed By: #### T SH, T4, LIPID, CMP ####[facility] [address] [place] [address]Dr. Osmar Cox ALT [Catalytic activity/Vol] 17 U/L Normal 14-59 [facility] Comment on above: Performed By: #### T SH, T4, LIPID, CMP ####[facility] [address] [place] [address]Dr. Osmar Cox Anion gap [Moles/Vol] 11.3 mmol/L Normal [facility] Comment on above: Performed By: #### T SH, T4, LIPID, CMP ####[facility] [address] [place], [place] [address]Dr. Osmar Cox AST [Catalytic activity/Vol] 11 U/L Critically low 15-37 [facility] Comment on above: Performed By: #### T SH, T4, LIPID, CMP ####[facility] [address] [place], [place] [address]Dr. Osmar Cox Bilirubin [Mass/Vol] 0.2 mg/dL Normal 0.2-1.0 [facility] Comment on above: Performed By: #### T SH, T4, LIPID, CMP ####[facility] [address] [place], [place] [address]Dr. Osmar Cox Calcium [Mass/Vol] 8.7 mg/dL Normal 8.5-10.1 [facility] Comment on above: Performed By: #### T SH, T4, LIPID, CMP ####[facility] [address] [place], [place] [address]Dr. Osmar Cox Chloride [Moles/Vol] 106 mmol/L Normal 98-107 [facility] Comment on above: Performed By: #### T SH, T4, LIPID, CMP ####[facility] [address] [place], [place] [address]Dr. Osmar Cox CO2 [Moles/Vol] 23.6 mmol/L Normal 21.0-32.0 [facility] Comment on above: Performed By: #### T SH, T4, LIPID, CMP ####[facility] [address] [place], [place] [address]Dr. Osmar Cox Creatinine [Mass/Vol] 0.86 mg/dL Normal 0.55-1.02 [facility] Comment on above: Performed By: #### T SH, T4, LIPID, CMP ####[facility] [address] [place], [place] [address]Dr. Osmar Cox EGFR-AF MARSHALLESE >=60 Normal >=60 [facility] Comment on above: Performed By: #### T SH, T4, LIPID, CMP ####[facility] [address] [place] [address]Dr. Osmar Cox EGFR-NON AF MARSHALLESE >=60 Normal >=60 [facility] Comment on above: Performed By: #### T SH, T4, LIPID, CMP ####[facility] [address] [place] [address]Dr. Osmar Cox Globulin (S) [Mass/Vol] 3.3 g/dL Normal [facility] Comment on above: Performed By: #### T SH, T4, LIPID, CMP ####[facility] [address] [place] [address]Dr. Osmar Cox Glucose [Mass/Vol] 104 mg/dL Normal 74-106 [facility] Comment on above: Performed By: #### T SH, T4, LIPID, CMP ####[facility] [address] [place], [place] [address]Dr. Osmar Cox Potassium [Moles/Vol] 4.9 mmol/L Normal 3.5-5.1 [facility] Comment on above: Performed By: #### T SH, T4, LIPID, CMP ####[facility] [address] [place], [place] [address]Dr. Osmar Cox Protein [Mass/Vol] 6.7 g/dL Normal 6.1-8.2 [facility] Comment on above: Performed By: #### T SH, T4, LIPID, CMP ####[facility] [address] [place], [place] [address]Dr. Osmar Cox Sodium [Moles/Vol] 136 mmol/L Normal 136-145 [facility] Comment on above: Performed By: #### T SH, T4, LIPID, CMP ####[facility] [address] [place], [place] [address]Dr. Osmar Cox Urea nitrogen [Mass/Vol] 25.0 mg/dL Critically high 7.0-18.0 [facility] Comment on above: Performed By: #### T SH, T4, LIPID, CMP ####[facility] [address] [place] [address]Hk. Osmar Cox Urea nitrogen/Creatinin e [Mass ratio] 29.1 mg/mg Normal [facility] Comment on above: Performed By: #### T SH, T4, LIPID, CMP ####[facility] [address] [place], [place] [address]Yh. Osmar Cox T4on 03-19-2022 T4 [Mass/Vol] 7.60 ug/dL Normal 4.80-13.90 [facility] Comment on above: Performed By: #### T SH, T4, LIPID, CMP ####[facility] [address] [place], [place] [address]Jq. Osmar Cox TSHon 03-19-2022 TSH 1.427 uIU/mL Normal 0.470-4.680 [facility] Comment on above: Performed By: #### T SH, T4, LIPID, CMP ####[facility] [address] [place] [id number]. Osmar Cox TSH RANGE SEE BELOW Normal [facility] Comment on above: Result Comment: <0.3 4 UIU/ml HYPERTHYROID 0.34-5.60 UIU/ml EUTHYROID >5.60 UIU/ml HYPOTHYROID Performed By: #### T SH, T4, LIPID, CMP ####[facility] [address] [place] [id number]. Osmar Cox Laboratory Studieson 018 Albumin [Mass/Vol] 3.8 g/dL 3.2-5.5 [facility] Albumin/Globulin [Mass ratio] 1.5 {ratio} [facility] ALP [Catalytic activity/Vol] 75 U/L 32-92 [facility] ALT No additional P-5'-P [Catalytic activity/Vol] 16 U/L 10-60 [facility] AST [Catalytic activity/Vol] 18 U/L 10-42 [facility] Basophils (Bld) [#/Vol] 0.1 10*3/uL 0.0-0.2 [facility] Basophils/100 WBC (Bld) 1.0 % [facility] Bilirubin [Mass/Vol] 0.5 mg/dL 0.3-1.2 [facility] Calcium [Mass/Vol] 9.2 mg/dL 8.2-10.2 [facility] Carbamazepine [Mass/Vol] < 2.0 ug/mL Low 4.0-12.0 [facility] Chloride [Moles/Vol] 103 mmol/L 95-114 [facility] CK [Catalytic activity/Vol] 46 U/L 22-269 [facility] CK.MB [Mass/Vol] 1.0 ng/mL 0.6-6.3 [facility] [place] [facility] CK.MB Calc [Catalytic fraction] 2.1 0.00-2.50 [facility] CO2 [Moles/Vol] 24.9 mmol/L 22.0-30.0 [facility] [place] [facility] Creatinine [Mass/Vol] 0.58 mg/dL 0.44-1.03 [facility] Eosinophils (Bld) [#/Vol] 0.2 10*3/uL 0.0-0.45 [facility] Eosinophils/100 WBC (Bld) 3.1 % [facility] Erythrocyte distribution width (RBC) [Ratio] 13.5 % 11.9-15.3 [facility] Ethanol [Mass/Vol] mg/dL [facility] Ethanol [Mass/Vol] TNP [facility] Comment on above: Test not performed GFR/1.73 sq M predicted among blacks MDRD (S/P/Bld) [Vol rate/Area] mL/min/{1.73_m2} [facility] Comment on above: GFR estimated refere nce range: According to KDOQI guidelines, <60 ml/min/1.73m2 is sufficient to diagnose a patient with chronic kidney disease. GFR/1.73 sq M predicted among non-blacks MDRD (S/P/Bld) [Vol rate/Area] mL/min/{1.73_m2} [facility] Globulin (S) [Mass/Vol] 2.6 g/dL [facility] Glucose [Mass/Vol] 96 mg/dL 70-100 [facility] Comment on above: ADA recommended refe rence range Random Glucose Reference Range is dependent on time and content of last meal. Glucose of more than 200 mg/dL in a nonstressed, ambulatory subject supports the diagnosis of Diabetes Mellitus. Hematocrit (Bld) [Volume fraction] 38.7 % 34.0-46.4 [facility] Hemoglobin (Bld) [Mass/Vol] 12.8 g/dL 11.8-15.4 [facility] Lymphocytes (Bld) [#/Vol] 2.1 10*3/uL 1.00-4.8 [facility] Lymphocytes/100 WBC (Bld) 33.0 % [facility] MCH (RBC) [Entitic mass] 28.3 pg 24.7-34.3 [facility] MCHC (RBC) [Mass/Vol] 33.1 g/dL 32.0-35.0 [facility] MCV (RBC) [Entitic vol] 85.4 fL 80-100 [facility] Monocytes (Bld) [#/Vol] 0.5 10*3/uL 0.0-0.8 [facility] Monocytes/100 WBC (Bld) 7.2 % [facility] Neutrophils (Bld) [#/Vol] 3.5 10*3/uL 1.8-7.7 [facility] Neutrophils/100 WBC (Bld) 55.7 % [facility] Creatinine Clearance (Chem 87.4588 [facility] Platelet mean volume (Bld) [Entitic vol] 6.9 fL 6.3-10.7 [facility] Platelets (Bld) [#/Vol] 270 10*3/uL 150-450 [facility] Potassium [Moles/Vol] 4.3 mmol/L 3.5-5.1 [facility] Protein [Mass/Vol] 6.4 g/dL 6.1-7.9 [facility] RBC (Bld) [#/Vol] 4.52 10*6/uL 3.60-5.00 [facility] Sodium [Moles/Vol] 136 mmol/L 136-146 [facility] Troponin I.cardiac [Mass/Vol] ng/mL 0-0.02 [facility] Comment on above: RIZWANA MA Cut off value > or equal to 0.03 ng/mL in conjunction with clinical conditions of myocardial infarction. ([email or web address].org/guidelines) Urea nitrogen [Mass/Vol] 18 mg/dL 9-23 [facility] Valproate [Mass/Vol] 52.6 ug/mL 50.0-100.0 [facility] Comment on above: Last dose: - WBC (Bld) [#/Vol] 6.3 10*3/uL 3.8-11.6 [facility] Amphetamines Ql (U) Negative [facility] Barbiturates Ql (U) Negative [facility] Benzodiazepines Ql (U) Negative [facility] Bilirubin Ql (U) Negative [facility] [place] [facility] Cannabinoids Screen Ql (U) Negative [facility] Comment on above: These are unconfirme d results and should not be used for legal purposes. Drug Cut-Off Concentration: AMPH 1000 ng/mL ALFREDO 200 ng/mL JAXON 200 ng/mL COCM 300 ng/mL OP 300 ng/mL PCP 25 ng/mL THC 20 ng/mL Clarity Refractometry automated (U) Clear [facility] Cocaine Ql (U) Negative [facility] Color (U) Yellow [facility] Glucose Auto test strip (U) [Mass/Vol] Normal mg/dL [facility] Hemoglobin Auto test strip Ql (U) Negative [facility] Ketones (U) [Mass/Vol] Negative [facility] Leukocyte esterase Auto test strip Ql (U) Negative [facility] Nitrite Ql (U) Negative [facility] Opiates Ql (U) Negative [facility] pH (U) 6.5 [pH] 5.0-9.0 [facility] Phencyclidine Ql (U) Negative [facility] Protein (U) [Mass/Vol] Negative [facility] Specific gravity (U) [Rel density] 1.018 1.001-1.030 [facility] Urobilinogen (U) [Mass/Vol] Normal mg/dL [facility] Vital Signs Date Time Vital Sign Value Performing Clinician Facility 09-02-2022 13:44-0400 Blood Pressure Location Ganga ZUNIGAAn [facility] [place] 09-02-2022 13:44-0400 Diastolic blood pressure 82 mm[Hg] Ganga NILL [facility] [place] 09-02-2022 13:44-0400 Heart rate 72 /min Ganga NILL [facility] [place] 09-02-2022 13:44-0400 Respiratory rate 16 /min Ganga NILL [facility] [place] 09-02-2022 13:44-0400 Systolic blood pressure 120 mm[Hg] Ganga NILL [facility] [place] 03-07-2019 15:00-0400 Body Temperature 97.8 [degF] [facility] 03-07-2019 15:00-0400 BP Diastolic 88 mm[Hg] [facility] 03-07-2019 15:00-0400 BP Systolic 158 mm[Hg] [facility] 03-07-2019 15:00-0400 Pulse (Heart Rate) 78 /min [facility] 03-07-2019 15:00-0400 Pulse Oximetry 95 % [facility] 03-07-2019 15:00-0400 Respiratory Rate 16 /min [facility] Body weight [facility] NEGATED: Highlighted row BMI (Body Mass Index) [facility] NEGATED: Highlighted row Height [facility] Encounters Encounter Date Encounter Type Care Provider Facility Start: 01-29-2025 ambulatory Dereck De La Rosa acility:[facility] Start: 06-28-2024 End: 06-29-2024 ambulatory [facility] Start: 12-15-2023 End: 12-15-2023 ambulatory [facility] Start: 10-21-2022 End: 10-22-2022 ambulatory Ganga PEARCE Facility:[facility] Start: 10-21-2022 End: 10-21-2022 Patient encounter procedure Ganga PEARCE General Surgery Nill/Said [place] Start: 10-08-2022 Encounter for preprocedural laboratory examination DR GANGA PEARCE [facility] Start: 10-07-2022 End: 10-08-[address] GANGA PEARCE Facility:[facility] Start: 10-03-2022 End: 10-04-[address] GANGA PEARCE Facility:[facility] Start: 10-03-2022 End: 10-04-2022 Encounter for preprocedural laboratory examination DR GANGA PEARCE Facility:[facility] Start: 09-02-2022 End: 09-03-2022 ambulatory Ganga PEARCE Facility: [facility] Start: 09-02-2022 End: 09-02-2022 Patient encounter procedure Ganga PEARCE General Surgery Nill[facility]Said [place] Start: 08-11-2022 End: 08-11-[address] NOLA RAMIREZ Facility:[facility] Start: 08-06-2022 End: 08-07-[address] Nicolas Kirk Facility:[facility] Start: 07-28-2022 End: 07-29-2022 ambulatory NOLA RAMIREZ Facility:[facility] Start: 07-24-2022 End: 07-25-[address] JESSIE [...] Start: 03-19-2022 End: 03-20-[address] [facility] Start: 03-15-2019 End: 03-15-2019 Patient encounter procedure Nola ramses [facility] Start: 03-07-2019 End: 03-07-2019 Admission to day surgery Nola Ramirez [facility] Start: 02-01-2018 End: 02-01-2018 Emergency department patient visit Nola ramses [facility] Start: 06-07-2014 End: 06-12-2014 Evaluation and management of inpatient [facility] Start: 06-17-2011 End: 06-20-2011 Evaluation and management of inpatient [facility] Start: 05-01-2011 End: 05-18-2011 Evaluation and management of inpatient [facility] Start: 05-27-2010 End: 06-26-2010 Discharged Recurring [facility] Start: 05-22-2010 End: 06-21-2010 Discharged Recurring [facility] Start: 04-22-2010 End: 05-21-2010 Discharged Recurring [facility] Start: 03-22-2010 End: 04-21-2010 [facility] Start: 02-20-2010 End: 03-21-2010 Discharged Recurring [facility] Start: 01-20-2010 End: 02-19-2010 Discharged Recurring [facility] Start: 01-20-2010 End: 02-19-2010 Discharged Recurring [facility] Start: 01-16-2010 End: 01-19-2010 Discharged Recurring Nola Hoy [facility] Start: 12-23-2009 End: 01-19-2010 Discharged Recurring Nola Hoy [facility] Start: 11-23-2009 End: 12-22-2009 Discharged Recurring Nola ramses [facility] Start: 11-22-2009 End: 01-20-2010 Discharged Recurring Nola y [facility] Start: 10-22-2009 End: 11-21-2009 Discharged Recurring Nola Hoy [facility] Start: 10-15-2009 End: 11-22-2009 Discharged Recurring [facility] Start: 09-22-2009 End: 10-21-2009 Discharged Recurring N[facility] Start: 08-22-2009 End: 09-21-2009 Discharged Recurring Nola Hoy [facility] Start: 08-06-2009 End: 08-21-2009 Discharged Recurring Nola y [facility] Start: 07-02-2009 End: 07-22-2009 Discharged Recurring N[facility] Start: 06-04-2009 End: 06-21-2009 Discharged Recurring N[facility] Start: 04-22-2009 End: 05-21-2009 Discharged Recurring Nola y [facility] Start: 03-22-2009 End: 04-21-2009 Discharged Recurring Nola [facility] Start: 02-20-2009 End: 03-21-2009 Discharged Recurring N[facility] Start: 02-10-2009 End: 02-10-2009 Emergency department patient visit Nola Hoy [facility] Start: 01-21-2009 End: 02-19-2009 Discharged Recurring Nola James [facility] Start: 12-24-2008 End: 01-19-2009 Discharged Recurring Nola Hoy [facility] Start: 11-23-2008 End: 12-22-2008 Discharged Recurring Nola Hoy [facility] Start: 10-22-2008 End: 11-21-2008 Discharged Recurring Nola Hoy [facility] Start: 09-22-2008 End: 10-21-2008 Discharged Recurring Nola ramses [facility] Start: 08-22-2008 End: 09-21-2008 Discharged Recurring Nola Hoy [facility] Start: 07-24-2008 End: 08-21-2008 Discharged Recurring Nola Hoy [facility] Start: 07-02-2008 End: 07-05-2008 Evaluation and management of inpatient Nola ramses [facility] Start: 06-22-2008 End: 07-22-2008 Discharged Recurring Nola Hoy [facility] Start: 06-05-2008 End: 06-14-2008 Evaluation and management of inpatient Nola ramses [facility] Start: 05-29-2008 End: 06-21-2008 Discharged Recurring Nola ramses [facility] Start: 04-24-2008 End: 05-21-2008 Discharged Recurring N[facility] Start: 03-22-2008 End: 04-21-2008 Discharged Recurring Nola Hoy [facility] Start: 02-21-2008 End: 03-21-2008 Discharged Recurring Nola Ramirez [facility] Start: 02-14-2008 End: 02-20-2008 Discharged Recurring Nola Ramirez [facility] Start: 12-23-2007 End: 01-20-2008 Discharged Recurring Nola Ramirez [facility] Start: 12-20-2007 End: 12-23-2007 Evaluation and management of inpatient Nola Ramirez [facility] Start: 11-22-2007 End: 12-22-2007 Discharged Recurring Nola Ramirez [facility] Start: 10-22-2007 End: 11-21-2007 Discharged Recurring Nola Ramirez [facility] Start: 09-22-2007 End: 10-21-2007 Discharged Recurring Nola Ramirez [facility] Start: 08-22-2007 End: 09-21-2007 Discharged Recurring Nola Ramirez [facility] Start: 07-23-2007 End: 08-21-2007 Discharged Recurring Nola Ramirez [facility] Start: 06-22-2007 End: 07-22-2007 Discharged Recurring Nola Ramirez [facility] Start: 05-22-2007 End: 06-21-2007 Discharged Recurring Nola ramses [facility] Start: 04-28-2007 End: 04-28-2007 Emergency department patient visit Nola Ramirez [facility] Start: 04-28-2007 End: 04-28-2007 Patient encounter procedure Nola ramses [facility] Start: 04-28-2007 End: 05-21-2007 Discharged Recurring Nola [facility] Start: 03-01-2002 End: 03-21-2002 Discharged Recurring Nola [facility] Start: 03-01-2002 End: 03-04-2002 [facility] Start: 03-24-2001 End: 03-24-2001 Discharged Recurring Nola [facility] Start: 03-24-2001 End: 04-04-2001 [facility] Start: 09-27-1996 End: 09-30-1996 Evaluation and management of inpatient [facility] Start: 08-19-1995 End: 08-19-1995 [facility] Start: 09-27-1993 End: 09-27-1993 Patient encounter procedure [facility] Procedures Date Procedure Procedure Detail Performing [...] NILL Payers Date Payer Category Payer Unknown [id number] 2023 Self-pay 1960 Medicaid [id number] 1960 Medicare [id number] 1960 Self-pay [id number] 1960 Unknown [id number] 2.16.8 [id number] 1959 Unknown [id number] 2.16.84 0.1.805736.3.579.2.593 1959 Unknown [id number] 2.16.84 0.1.385325.3.579.2.593 1959 Unknown [id number] 2.16.84 0.1.164710.3.579.2.593 1959 Unknown [id number] 2.16.84 0.1.032985.3.579.2.593 1959 Unknown [id number] 2.16.84 0.1.521269.3.579.2.593 1959 Unknown [id number] 2.16.84 0.1.070278.3.579.2.593 1959 Unknown [id number] 2.16.84 0.1.789890.3.579.2.593 1959 Unknown [id number] 2.16.84 0.1.885892.3.579.2.593 1959 Unknown [id number] 2.16.84 0.1.092985.3.579.2.593 1959 Unknown [id number] 2.16.84 0.1.945017.3.579.2.593 1959 Unknown [id number] 2.16.84 0.1.696078.3.579.2.593 1959 Unknown [id number] 2.16.84 0.1.758904.3.579.2.593 1959 Unknown [id number] 2.16.84 0.1.776756.3.579.2.593 1959 Unknown [id number] 2.16.84 0.1.936425.3.579.2.593 1959 Unknown [id number] 2.16.84 0.1.322359.3.579.2.593 1959 Unknown [id number] 2.16.8 40.1.119411.3.579.2.727 1959 Unknown [id number] 2.16.8 40.1.627876.3.579.2.727 1959 Unknown [id number] 2.16.8 40.1.096807.3.579.2.727 Medicare [id number] Unknown [id number] 2.16.8 40.1.737453.3.579.2.531 Social History Date Type Detail Facility Start: 09-02-2022 Tobacco smoking status Ex-smoker (fi nding) [facility] [place] Tobacco smoking status Never [facility] Sex Assigned At Female Gen[facility] l [facility] [place] Medical Equipment Procedure Code Equipment Code Equipment Origin al Text Equipment Identifier Dates HERNIA REPAIR, R OBOT ASSISTED CAIT LEHMAN, Ganga Salgado 12/05/20 Non Biological Abdomen {[id number] [facility] Start: 12-05-2020 Functional Status Date Assessment Result Facility 09-02-2022 Functional Status N/A [facility] Progress note 06-28-2024 Note Date & Type Note Facility 06-28-2024 Note [facility] Subjective Ebony Medley is a [...] pain. No palpit (more content not included)... [facility] Progress note 12-15-2023 Note Date & Type Note Facility 12-15-2023 Note [facility] Subjective Ebony Medley is a [...] is not ill-ap (more content not included)... [facility] Clinical Note 10-07-2022 Note Date & [...] good condition. CC: Nola Ramirez M.D. [facility] Clinical Note 09-02-2022 Note Date & [...] without obstruction or gangrene Mixed hyperlipidemia Obesity ERKIA (obstructive sleep apnea) Rectal prolapse RLS (restless [...] Allergies Social Hi (more content not included)... [facility] Comment on above: Result Comment: Elec tronically Signed By: CAIT LEHMAN, Ganga Valencia\Date and Time Signed: 09/02/22 15:31 EDT Evaluation + Plan note Note Date & Type Note Facility Evaluation + Plan note No data available for this section [facility] Discharge instructions Note Date & Type Note Facility Hospital Discharge instructions No data available for this section [facility] [place] Progress note Note Date & Type Note [...] section and content) DATE CREATED AUTHOR 07/31/2022 [facility] DATE CREATED AUTHOR AUTHOR'S ORGANIZ ATION 10/14/2022 [facility] DATE CREATED AUTHOR AUTHOR'S ORGANIZ ATION 10/22/2022 [facility] DATE CREATED AUTHOR AUTHOR'S ORGANIZ ATION 07/19/2024 [facility] DATE CREATED AUTHOR AUTHOR'S ORGANIZ ATION 02/07/2025 [facility] Patient Care team informatio n (unrecognized section and content) Personnel Name: Nola Ramirez MD Address: Address: [address] [place] [address] Name: Toya Curtain Stretcher AssemblerFlorence Personnel Name: Nola Ramirez MD Address: Address: [address] [place] [address] Name: Toya Curtain Stretcher Assembler, Amy FOR RECORDS PERTAINING TO PATIENTS WHO [...] BE BASED ON THE PRIMARY CLINICAL RECORDS. [facility] [employer] provides no warranty or guarantee of the accuracy or completeness of information in this document.
[2025-02-19 08:34] LABS: Basophils Absolute Auto 0.2 10^3/uL (0.0-0.1); Basophils Percent Auto 1.2 % (0.2-2.0); Eosinophils Percent Auto 0.3 % (0.9-7.0); Hematocrit 45.9 % (36.0-48.0); Hemoglobin 14.7 g/dL (12.0-16.0); Immature Granulocytes Abs Auto 0.14 10^3/uL (0.00-0.03); Immature Granulocytes Pct Auto 0.9 % (0.0-0.5); Lymphocytes Absolute Auto 3.2 10^3/uL (1.2-3.8); Lymphocytes Percent Auto 21.3 % (20.5-60.0); Mean Corpuscular Hemoglobin 27.6 pg (26.7-34.0); Mean Corpuscular Volume 86.1 fL (81.0-99.0); Mean Platelet Volume 8.5 fL (9.5-13.5); Monocytes Percent Auto 6.6 % (1.7-12.0); Neutrophils Absolute Auto 10.3 10^3/uL (1.4-6.5); Neutrophils Percent Auto 69.7 % (43.0-75.0); Platelet Count 397 10^3/uL (150-450); Red Blood Count 5.33 10^6/uL (4.20-5.40); Red Cell Distribution Width 14.7 % (11.0-15.0); White Blood Count 14.8 10^3/uL (4.0-11.0)
== END 2025-02-19 08:22 | disposition home or self-care (01) ==
LOC: LAB 08:22
PROVIDERS: PCP Family Medicine; Visit Provider Family Medicine
DX: D72.829 Elevated white blood cell count, unspecified (principal); Z79.899 Other long term (current) drug therapy
CPT/HCPCS: 36415; 80178; 82565; 84520; 85025

== ENCOUNTER 2025-03-06 10:03 | Outpatient (OUT) | payer MEDICARE, SELFPAY ==
--- OUTSIDE RECORDS SUMMARY | 2025-03-06 10:06 | XMS_ITS | CCD ---
Author Organization [facility] Care Team Providers Care Cardiopulmonary Technician Name Role Phone Nola Ramirez Primary Care [...] Primary Care Unavailable KINJAL, ANTONY Attending Unavailable KINJLA, ANTONY Admitting Unavailable HOY, DR VACA Consulting [...] Date of Onset Reaction(s) Facility (1 source) 15475,00 Drug allergy (disorder) 1 [facility] Repository (1 source) oxyCODONE; Translations: [OxyCODONE Hydrochloride] Drug Allergy [facility] Repository (1 source) No Known Medication Allergies; Translations: [No Known Medication Allergies] Propensity to adverse reactions (disorder) [facility] Repository Medications Current Medications Medication Drug Class(es) [...] 300 mg by mouth once aarti y Pease Carbonate 300 MG Oral Daily June 13, 2019 Active Start: 06-13-2019 take 600 mg by mouth at bedtim e Pease Carbonate 600 MG Oral Bedtime June 13, 2019 Active Start: 06-01-2019 End: 06-13-2019 take 300 mg by mouth at bedtime Pease Carbonate 300 MG Oral Bedtime June 01, 2019 June 13, 2019 Discontinued Start: 08-15-2018 End: 06-01-2019 take 150 mg by mouth at bedtime Pease Carbonate 150 MG Oral Bedtime February 27, [...] 02-02-2014 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 [facility] Office Visiton 06-28-2024 Follow-up visit [id number] Julia Medley Nneka 1960 F Date Provider Department Center 06/28/2024 JESSIE RIVERA Family History Problem Relation Age of Onset Hypertension Mother Hypertension Father Family Status - Relation Status Age at Mother Father Level of Service:10516 NM OFFICE/OUTPATIENT ESTABLISHED MOD MDM 30 MIN [facility] Office Visiton 12-15-2023 Follow-up visit [id number] Julia Medley joséreyna 1960 F Date Provider Department Center 12/15/2023 JESSIE RIVERA Family History Problem Relation Age of Onset Hypertension Mother Hypertension Father Family Status - Relation Status Age at Mother Father Level of Service:32976 NM OFFICE/OUTPATIENT ESTABLISHED MOD MDM 30 MIN [facility] Office/Clini c Noteon 10-21-2022 [...] 2: Mother. Hypertension: Mother and Father. Normal [facility] Comment on above: Result Comment: Elec tronically Signed By: CAIT LEHMAN, Ganga Valencia\Date and Time Signed: 10/21/22 15:25 EST Operative Reporton 2 Operative Report [id number]#1.00CD:127 Normal [facility] Operative Reporton 2 Operative Report [id number]#1.00CD:127 [facility] Pathology Noteon 10-09-2022 Pathology Note [id number]#1.00CD:127 [facility] Lab Reportson 10-05-2022 Lab Reports [id number]#1.00CD:127 Normal [facility]on 09-22 SARS-CoV-2 (COVID-19) RNA ISABEL+probe Ql (Unsp spec) Not detected Normal NOT DETECTED [facility] Comment on above: Result Comment: This test is not yet approved or cleared by the [place] FDA. When there are no FDA-approved or cleared tests available, and other criteria are met, FDA can make tests available under an emergency access mechanism called an Emergency Use Authorization (EUA). The EUA for this test is supported by the [place] of Health and Human Service's (HHS's) declaration [...] consistent with SARS-CoV-2. Performed By: #### C [facility] #### [facility] [address] [place] [address] Dr. Osmar Cox Consent for Procedure/Surger yon 09-03-2022 Consent for Procedure/Surgery [id number]#1.00CD:127 Normal [facility] Ambulatory Visit Summaryon 1 Ambulatory Visit Summary [...] of Clostridium difficile infection Memory loss Normal [facility] Outside [facility] Correspo ndenceon 08-19-2022 Outside Hospital Correspondence [id number]#1.00CD:127 Normal [facility] RAD - CT Reporton 08-19-2022 RAD - CT Report [id number]#1.00CD:127 Normal [facility] RAD - MISCon 08-19-2022 RAD - MISC [id number]#1.00CD:127 Normal [facility] Physician Referralon 022 Physician Referral [id number]#1.00CD:127 Normal [facility] Covid-19 PCR [facility]on 07-24 SARS-CoV-2 (COVID-19) RNA ISABEL+probe Ql (Unsp spec) Not detected Normal NOT DETECTED [facility] Comment on above: Result Comment: This test is not yet approved or cleared by the [place] FDA. When there are no FDA-approved or cleared tests available, and other criteria are met, FDA can make tests available under an emergency access mechanism called an Emergency Use Authorization (EUA). The EUA for this test is supported by the [place] of Health and Human Service's (HHS's) declaration [...] consistent with SARS-CoV-2. Performed By: #### C [facility] #### [facility] [address] [place] [address] Dr. Osmar Cox XR MODIFIED BARIUM SWALLOWon [...] NICOLAS KIRK Date: 2022-08-06 15:18 Normal [facility] Cardiovascular Lab Reporton 07-29-2022 Cardiovascular Lab Report [facility] Patient Name: Ebony Medley [facility] MR #: [id number] Physician: Jessie De Oliveira of [facility] Medicine Service Date: 07/28/2022 Division of Birthdate: 1960 Cardiology Room #: [facility] Cardiovascular Services [place] [address] Cardiovascular Laboratory Report INDICATIONS: The patient is [...] in the right internal jugular vein. A 6-Gabonese x 11 cm sheath was placed. A 6-Gabonese Suarez catheter was used for right heart catheterization and measurement of pressures and calculation of cardiac output using the estimated Karina method. Suarez catheter was removed. Micropuncture technique and ultrasound guidance were used for access in the right radial artery. A 5-Gabonese x 11 cm slender sheath was advanced. Verapamil was given through the sheath and heparin was administered intravenously. Bilateral selective coronary angiography was then performed using 5-Gabonese JL 3.5 and JR5 diagnostic catheters. Catheters [...] Arnett M.D. Date Trans: 07/29/2022 03:31 A/gladys [id number] cc: Nola Ramirez M.D. [place] [id number] [facility] [phone] Normal [facility] CBC AUTO DIFFon 07-24-2022 BASO # 0.1 103/ul Normal 0.0-0.1 [facility] Comment on above: Performed By: #### C BC #### [facility] [address] [place] [address] Dr. Osmar Cox Basophils/100 WBC (Bld) 0.9 % Normal 0.2-2.0 [facility] Comment on above: Performed By: #### C BC #### [facility] [address] [place] [address] Dr. Osmar Cox EO # 0.0 103/ul Normal 0.0-0.7 [facility] Comment on above: Performed By: #### C BC #### [facility] [address] [place] [address] Dr. Osmar Cox Eosinophils/100 WBC (Bld) 0.1 % Critically low 0.9-7.0 [facility] Comment on above: Performed By: #### C BC #### [facility] [address] [place] [address] Dr. Osmar Cox Erythrocyte distribution width (RBC) [Ratio] 15.4 % Critically high 11.0-15.0 [facility] Comment on above: Performed By: #### C BC #### [facility] [address] [place] [address] Dr. Osmar Cox Hematocrit (Bld) [Volume fraction] 40.7 % Normal 36.0-48.0 [facility] Comment on above: Performed By: #### C BC #### [facility] [address] [place] [address] Dr. Osmar Cox Hemoglobin (Bld) [Mass/Vol] 12.5 g/dL Normal 12.0-16.0 [facility] Comment on above: Performed By: #### C BC #### [facility] [address] [place] [address] Dr. Osmar Cox IG # 0.08 10e3/ul Critically high 0.00-0.03 [facility] Comment on above: Performed By: #### C BC #### [facility] [address] [place] [address] Dr. Osmar Cox IG % 0.7 % Critically high 0.0-0.5 [facility] Comment on above: Performed By: #### C BC #### [facility] [address] [place] [address] Dr. Osmar Cox LYMPH # 2.6 103/ul Normal 1.2-3.8 [facility] Comment on above: Performed By: #### C BC #### [facility] [address] [place] [address] Dr. Osmar Cox Lymphocytes/100 WBC (Bld) 22.8 % Normal 20.5-60.0 [facility] Comment on above: Performed By: #### C BC #### [facility] [address] [place] [address] Dr. Osmar Cox MANUAL DIFF REQ NO Normal [facility] Comment on above: Performed By: #### C BC #### [facility] [address] [place] [address] Dr. Osmar Cox MCH (RBC) [Entitic mass] 24.4 pg Critically low 26.7-34.0 [facility] Comment on above: Performed By: #### C BC #### [facility] [address] [place] [address] Dr. Osmar Cox MCHC (RBC) [Mass/Vol] 30.7 g/dL Normal 29.9-35.2 [facility] Comment on above: Performed By: #### C BC #### [facility] [address] [place] [address] Dr. Osmar Cox MCV (RBC) [Entitic vol] 79.3 fL Critically low 81.0-99.0 [facility] Comment on above: Performed By: #### C BC #### [facility] [address] [place] [address] Dr. Osmar Cox MONO # 1.0 103/ul Critically high 0.3-0.8 [facility] Comment on above: Performed By: #### C BC #### [facility] [address] [place] [address] Dr. Osmar Cox Monocytes/100 WBC (Bld) 8.9 % Normal 1.7-12.0 [facility] Comment on above: Performed By: #### C BC #### [facility] [address] [place] [address] Dr. Osmar Cox NEUT # 7.6 103/ul Critically high 1.4-6.5 [facility] Comment on above: Performed By: #### C BC #### [facility] [address] [place] [address] [address] Osmar Cox Neutrophils/100 WBC (Bld) 66.6 % Normal 43.0-75.0 [facility] Comment on above: Performed By: #### C BC #### [facility] [address] [place] [address] [address] Osmar Cox Platelet mean volume (Bld) [Entitic vol] 8.8 fL Critically low 9.5-13.5 [facility] Comment on above: Performed By: #### C BC #### [facility] [address] [place] [address] Dr. Osmar Cox PLT 438 103/ul Normal 150-450 [facility] Comment on above: Performed By: #### C BC #### [facility] [address] [place] [address] Dr. Osmar Cox RBC 5.13 106/ul Normal 4.20-5.40 [facility] Comment on above: Performed By: #### C BC #### [facility] [address] [place] [address] [address] Osmar Cox WBC 11.3 103/ul Critically high 4.0-11.0 [facility] [place] Comment on above: Performed By: #### C BC #### [facility] [address] [place] [address] Dr. Osmar Cxo Covid-19 PCR ([facility])on SARS-CoV-2 (COVID-19) RNA ISABEL+probe Ql (Unsp spec) Not detected Normal NOT DETECTED [facility] Comment on above: Result Comment: This test is not yet approved or cleared by the [place] FDA. When there are no FDA-approved or cleared tests available, and other criteria are met, FDA can make tests available under an emergency access mechanism called an Emergency Use Authorization (EUA). The EUA for this test is supported by the [place] of Health and Human Service's (HHS's) declaration [...] SARS-CoV-2. Performed By: #### C [facility] #### [facility] [address] [place], [place] [address] CHEST HI RESOLUTIONon [...] CONSUELO TELLES Date: 2022-07-20 11:51 Normal [facility] BNPon 07-10-2022 Natriuretic peptide B (Bld) [Mass/Vol] 85.0 pg/mL Normal <=900.0 [facility] Comment on above: Performed By: #### B GOAT FARMER, BMP, LIVER, LIPID ####[facility] [address] [place], [place] [address]ZqDr. Osmar Cox LIPID PROFILEon 07-10-2022 CHOL-HDL RATIO NORM SEE BELOW Normal [facility] Comment on above: Result Comment: 3.3 - 4.4 LOW RISK 4.4 - 7.1 AVERAGE RISK 7.1 - 11.0 MODERATE RISK >11.0 HIGH RISK Performed By: #### B GOAT FARMER, BMP, LIVER, LIPID ####[facility] [address] [place] [id number]. Osmar Cox Cholesterol [Mass/Vol] 229 mg/dL Critically high <=200 [facility] Comment on above: Performed By: #### B GOAT FARMER, BMP, LIVER, LIPID ####[facility] [address] [place] [id number]. Lindalan Cox Cholesterol in HDL [Mass/Vol] 51 mg/dL Normal 40-60 [facility] Comment on above: Performed By: #### B GOAT FARMER, BMP, LIVER, LIPID ####[facility] [address] [place] [id number]. Osmar Cox Cholesterol in LDL [Mass/Vol] 130.2 mg/dL Normal [facility] Comment on above: Performed By: #### B GOAT FARMER, BMP, LIVER, LIPID ####[facility] [address] [place] [phone]. Osmar Cox Cholesterol.total/ Cholesterol in HDL [Mass ratio] 4.5 {ratio} Normal [facility] Comment on above: Performed By: #### B GOAT FARMER, BMP, LIVER, LIPID ####[facility] [address] [place] [id number]. Lindalan Cox HDL NORMAL > or = 60 mg/dl - LO W CARDIOVASCULAR RISK <40 mg/dl - HIGH CARDIOVASCULAR RISK Normal [facility] Comment on above: Performed By: #### B GOAT FARMER, BMP, LIVER, LIPID ####[facility] [address] [place] [phone]. Lindalan Cox LDL CALC NORMAL SEE BELOW Normal [facility] Comment on above: Result Comment: <100 mg/dl OPTIMAL 100 - 129 mg/dl NEAR OR ABOVE OPTIMAL 130 - 159 mg/dl BORDERLINE HIGH 160 - 189 mg/dl HIGH >190 mg/dl VERY HIGH Performed By: #### B GOAT FARMER, BMP, LIVER, LIPID ####[facility] [address] [place] [address]Dr. Osmar Cox Triglyceride [Mass/Vol] 239 mg/dL Critically high <=150 [facility] Comment on above: Performed By: #### B GOAT FARMER, BMP, LIVER, LIPID ####[facility] [address] [place] [address]Dr. Osmar Cox VLDL CALC 47.8 mg/dL Normal [facility] Comment on above: Performed By: #### B GOAT FARMER, BMP, LIVER, LIPID ####[facility] [address] [place] [address]Dr. Osmar Cox LIVER PROFILEon 07-10-2022 Albumin [Mass/Vol] 3.5 g/dL Normal 3.4-5.0 [facility] Comment on above: Performed By: #### B GOAT FARMER, BMP, LIVER, LIPID ####[facility] [address] [place] [address]Dr. Lindakenyon Cox Albumin/Globulin [Mass ratio] 1.0 {ratio} Normal [facility] Comment on above: Performed By: #### B GOAT FARMER, BMP, LIVER, LIPID ####[facility] [address] [place] [address]Dr. Omsar Cox ALP [Catalytic activity/Vol] 183 U/L Critically high 46-116 [facility] Comment on above: Performed By: #### B GOAT FARMER, BMP, LIVER, LIPID ####[facility] [address] [place] [address]Dr. Osmar Cox ALT [Catalytic activity/Vol] 32 U/L Normal 14-59 [facility] Comment on above: Performed By: #### B GOAT FARMER, BMP, LIVER, LIPID ####[facility] [address] [place] [address]Dr. Osmar Cox AST [Catalytic activity/Vol] 17 U/L Normal 15-37 [facility] Comment on above: Performed By: #### B GOAT FARMER, BMP, LIVER, LIPID ####[facility] [address] [place] [address]Dr. Osmar Cox BILI, CONJUGATED 0.1 mg/dL Normal 0.0-0.2 [facility] [place] Comment on above: Performed By: #### B GOAT FARMER, BMP, LIVER, LIPID ####[facility] [address] [place] [address]Dr. Osmar Cox Bilirubin [Mass/Vol] 0.2 mg/dL Normal 0.2-1.0 [facility] Comment on above: Performed By: #### B GOAT FARMER, BMP, LIVER, LIPID ####[facility] [address] [place] [address]Dr. Osmar Cox Globulin (S) [Mass/Vol] 3.5 g/dL Normal [facility] Comment on above: Performed By: #### B GOAT FARMER, BMP, LIVER, LIPID ####[facility] [address] [place] [address]Dr. Osmar Cox Protein [Mass/Vol] 7.0 g/dL Normal 6.4-8.2 [facility] Comment on above: Performed By: #### B GOAT FARMER, BMP, LIVER, LIPID ####[facility] [address] [place] [address]Dr. Osmar Cox PROF CHEM 8 (BAS METB)on Anion gap [Moles/Vol] 11.6 mmol/L Normal [facility] Comment on above: Performed By: #### B GOAT FARMER, BMP, LIVER, LIPID #### [facility] [address] [place] [address] [address] Osmar Cox Calcium [Mass/Vol] 8.9 mg/dL Normal 8.5-10.1 [facility] Comment on above: Performed By: #### B GOAT FARMER, BMP, LIVER, LIPID #### [facility] [address] [place] [address] [address] Osmar Cox Chloride [Moles/Vol] 104 mmol/L Normal 98-107 [facility] Comment on above: Performed By: #### B GOAT FARMER, BMP, LIVER, LIPID #### [facility] [address] [place] [address] [address] Osmar Cox CO2 [Moles/Vol] 26.0 mmol/L Normal 21.0-32.0 [facility] [place] Comment on above: Performed By: #### B GOAT FARMER, BMP, LIVER, LIPID #### [facility] [address] [place] [address] [address] Osmar Cox Creatinine [Mass/Vol] 0.80 mg/dL Normal 0.55-1.02 [facility] Comment on above: Performed By: #### B GOAT FARMER, BMP, LIVER, LIPID #### [facility] [address] [place] [address] [address] Osmar Cox EGFR-AF MONTSERRATIAN >60 Normal >=60 [facility] [place] Comment on above: Performed By: #### B GOAT FARMER, BMP, LIVER, LIPID #### [facility] [address] [place] [address] [address] Osmar Cox EGFR-NON AF MONTSERRATIAN >60 Normal >=60 [facility] Comment on above: Performed By: #### B GOAT FARMER, BMP, LIVER, LIPID #### [facility] [address] [place] [address] [address] Osmar Cox Glucose [Mass/Vol] 100 mg/dL Normal 74-106 [facility] Comment on above: Performed By: #### B GOAT FARMER, BMP, LIVER, LIPID #### [facility] [address] [place] [address] [address] Osmar Cox Potassium [Moles/Vol] 4.6 mmol/L Normal 3.5-5.1 [facility] Comment on above: Performed By: #### B GOAT FARMER, BMP, LIVER, LIPID #### [facility] [address] [place] [address] [address] Osmar Cox Sodium [Moles/Vol] 137 mmol/L Normal 136-145 [facility] Comment on above: Performed By: #### B GOAT FARMER, BMP, LIVER, LIPID #### [facility] [address] [place] [address] [address] Osmar Cox Urea nitrogen [Mass/Vol] 20.0 mg/dL Critically high 7.0-18.0 [facility] Comment on above: Performed By: #### B GOAT FARMER, BMP, LIVER, LIPID #### [facility] [address] [place] [address] [address] Osmar Cox Urea nitrogen/Creatinin e [Mass ratio] 25.0 mg/mg Normal [facility] Comment on above: Performed By: #### B GOAT FARMER, BMP, LIVER, LIPID #### [facility] [address] [place] [address] [address] Osmra Cox XR CHEST 2 Von 06-04-2022 XR [...] CONSUELO TELLES Date: 2022-06-04 19:26 Normal [facility] HEMOGLOBINon 06-02-2022 Hemoglobin (Bld) [Mass/Vol] 12.1 g/dL Normal 12.0-16.0 [facility] Comment on above: Performed By: #### H GB #### [facility] [address] [place] [address] [address] Osmar Cox XR CHEST 2 Von [...] CONSUELO TELLES Date: 2022-06-02 19:19 Normal [facility] NM STRESS/REST MULTIon 05-06 NM STRESS/REST MULTI Patient: EBONY MEDLEY Exam Date: 05/06/2022 : 1960 Gender:F Ordering : DR NOLA RAMIREZ . Admission #: [id number] Family : Order #: [id number] CLICK HERE TO VIEW EXAM RADIOLOGY REPORT [...] Kirk M.D. on 05/07/2022 at 11:04 Normal [facility] ECHOCARDIO M/2D COMPLETEon 0 04-29-2022 ECHOCARDIO M/2D COMPLETE Patient: EBONY MEDLEY Exam Date: 04/29/2022 : 1960 Gender:F Ordering : DR NOLA RAMIREZ . Admission #: [id number] Family : Order #: [id number] CLICK HERE TO VIEW EXAM ECHOCARDIOGRAM REPORT [...] M.D. on 04/30/2022 at 20:09 Normal [facility] LITHIUMon 03-20-2022 Pease (Eskalith(R)), Serum 0.6 mmol/L Normal 0.5-1.2 [facility] Comment on above: Result Comment: Plas ma concentration of 0.5 - 0.8 mmol/L are advised for long-term use; concentrations of up to 1.2 mmol/L may be necessary during acute treatment. Detection Limit = 0.1 <0.1 indicates None Detected Performed By: #### L ITHIUM ####[facility] [address] [place] [address]Dr. Osmar Cox LIPID PROFILEon 03-19-2022 CHOL-HDL RATIO NORM SEE BELOW Normal [facility] Comment on above: Result Comment: 3.3 - 4.4 LOW RISK 4.4 - 7.1 AVERAGE RISK 7.1 - 11.0 MODERATE RISK >11.0 HIGH RISK Performed By: #### T SH, T4, LIPID, CMP ####[facility] [address] [place] [address]Dr. Lindakenyon Cox Cholesterol [Mass/Vol] 269 mg/dL Critically high <=200 [facility] Comment on above: Performed By: #### T SH, T4, LIPID, CMP ####[facility] [address] [place], [place] [address]Dr. Osmar Cox Cholesterol in HDL [Mass/Vol] 48 mg/dL Normal 40-60 [facility] Comment on above: Performed By: #### T SH, T4, LIPID, CMP ####[facility] [address] [place], [place] [address]Dr. Osmar Cox Cholesterol in LDL [Mass/Vol] 145.8 mg/dL Normal [facility] Comment on above: Performed By: #### T SH, T4, LIPID, CMP ####[facility] [address] [place], [place] [address]Dr. Osmar Cox Cholesterol.total/ Cholesterol in HDL [Mass ratio] 5.6 {ratio} Normal [facility] Comment on above: Performed By: #### T SH, T4, LIPID, CMP ####[facility] [address] [place], [place] [address]Dr. Osmar Cox HDL NORMAL > or = 60 mg/dl - LO W CARDIOVASCULAR RISK <40 mg/dl - HIGH CARDIOVASCULAR RISK Normal [facility] Comment on above: Performed By: #### T SH, T4, LIPID, CMP ####[facility] [address] [place], [place] [address]Dr. Osmar Cox LDL CALC NORMAL SEE BELOW Normal [facility] Comment on above: Result Comment: <100 mg/dl OPTIMAL 100 - 129 mg/dl NEAR OR ABOVE OPTIMAL 130 - 159 mg/dl BORDERLINE HIGH 160 - 189 mg/dl HIGH >190 mg/dl VERY HIGH Performed By: #### T SH, T4, LIPID, CMP ####[facility] [address] [place] [address]Dr. Osmar Cox Triglyceride [Mass/Vol] 376 mg/dL Critically high <=150 [facility] Comment on above: Performed By: #### T SH, T4, LIPID, CMP ####[facility] [address] [place] [address]Dr. Osmar Cox VLDL CALC 75.2 mg/dL Normal [facility] Comment on above: Performed By: #### T SH, T4, LIPID, CMP ####[facility] [address] [place] [address]Dr. Osmar Cox PROF 14(COMP METB)on 022 Albumin [Mass/Vol] 3.4 g/dL Normal 3.4-5.0 [facility] Comment on above: Performed By: #### T SH, T4, LIPID, CMP ####[facility] Xnldil[address] [place], [place] [address]Dr. Osmar Cox Albumin/Globulin [Mass ratio] 1.0 {ratio} Normal [facility] Comment on above: Performed By: #### T SH, T4, LIPID, CMP ####[facility] [address] [place] [address]Dr. Osmar Cox ALP [Catalytic activity/Vol] 118 U/L Critically high 46-116 [facility] Comment on above: Performed By: #### T SH, T4, LIPID, CMP ####[facility] [address] [place] [address]Dr. Osmar Cox ALT [Catalytic activity/Vol] 17 U/L Normal 14-59 [facility] Comment on above: Performed By: #### T SH, T4, LIPID, CMP ####[facility] [address] [place] [address]Dr. Osmar Cox Anion gap [Moles/Vol] 11.3 mmol/L Normal [facility] Comment on above: Performed By: #### T SH, T4, LIPID, CMP ####[facility] Bixuv[address] [place], [place] [address]Dr. Osmar Cox AST [Catalytic activity/Vol] 11 U/L Critically low 15-37 [facility] Comment on above: Performed By: #### T SH, T4, LIPID, CMP ####[facility] [address] [place], [place] [address]Dr. Osmar Cox Bilirubin [Mass/Vol] 0.2 mg/dL Normal 0.2-1.0 [facility] Comment on above: Performed By: #### T SH, T4, LIPID, CMP ####[facility] Zhxs[address] [place], [place] [address]Dr. Osmar Cox Calcium [Mass/Vol] 8.7 mg/dL Normal 8.5-10.1 [facility] Comment on above: Performed By: #### T SH, T4, LIPID, CMP ####[facility] H[address] [place], [place] [address]Dr. Osmar Cox Chloride [Moles/Vol] 106 mmol/L Normal 98-107 [facility] Comment on above: Performed By: #### T SH, T4, LIPID, CMP ####[facility] Jinlpqzb[address] [place], [place] [address]Dr. Osmar Cox CO2 [Moles/Vol] 23.6 mmol/L Normal 21.0-32.0 [facility] Comment on above: Performed By: #### T SH, T4, LIPID, CMP ####[facility] Oltexeb[address] [place], [place] [address]Dr. Osmar Cox Creatinine [Mass/Vol] 0.86 mg/dL Normal 0.55-1.02 [facility] Comment on above: Performed By: #### T SH, T4, LIPID, CMP ####[facility] Erafr[address] [place], [place] [address]Dr. Osmar Cox EGFR-AF MONTSERRATIAN >=60 Normal >=60 [facility] Comment on above: Performed By: #### T SH, T4, LIPID, CMP ####[facility] [address] [place] [address]Dr. Osmar Cox EGFR-NON AF MONTSERRATIAN >=60 Normal >=60 [facility] Comment on above: Performed By: #### T SH, T4, LIPID, CMP ####[facility] [address] [place] [address]Dr. Osmar Cox Globulin (S) [Mass/Vol] 3.3 g/dL Normal [facility] Comment on above: Performed By: #### T SH, T4, LIPID, CMP ####[facility] [address] [place] [address]Dr. Osmar Cox Glucose [Mass/Vol] 104 mg/dL Normal 74-106 [facility] Comment on above: Performed By: #### T SH, T4, LIPID, CMP ####[facility] [address] [place], [place] [address]Dr. Osmar Cox Potassium [Moles/Vol] 4.9 mmol/L Normal 3.5-5.1 [facility] Comment on above: Performed By: #### T SH, T4, LIPID, CMP ####[facility] X[address] [place], [place] [address]Dr. Osmar Cox Protein [Mass/Vol] 6.7 g/dL Normal 6.1-8.2 [facility] Comment on above: Performed By: #### T SH, T4, LIPID, CMP ####[facility] [address] [place], [place] [address]Dr. Osmar Cox Sodium [Moles/Vol] 136 mmol/L Normal 136-145 [facility] Comment on above: Performed By: #### T SH, T4, LIPID, CMP ####[facility] [address] [place], [place] [address]Dr. Osmar Cox Urea nitrogen [Mass/Vol] 25.0 mg/dL Critically high 7.0-18.0 [facility] Comment on above: Performed By: #### T SH, T4, LIPID, CMP ####[facility] [address] [place] [address]Yz. Osmar Cox Urea nitrogen/Creatinin e [Mass ratio] 29.1 mg/mg Normal [facility] Comment on above: Performed By: #### T SH, T4, LIPID, CMP ####[facility] [address] [place], [place] [address]Cn. Osmar Cox T4on 03-19-2022 T4 [Mass/Vol] 7.60 ug/dL Normal 4.80-13.[address] [facility] Comment on above: Performed By: #### T SH, T4, LIPID, CMP ####[facility] [address] [place], [place] [address]Uc. Osmar Cox TSHon 03-19-2022 TSH 1.427 uIU/mL Normal 0.470-4.[address] [facility] Comment on above: Performed By: #### T SH, T4, LIPID, CMP ####[facility] [address] [place] [id number]. Osmar Cox TSH RANGE SEE BELOW Normal [facility] Comment on above: Result Comment: <0.3 4 UIU/ml HYPERTHYROID 0.34-5.60 UIU/ml EUTHYROID >5.60 UIU/ml HYPOTHYROID Performed By: #### T SH, T4, LIPID, CMP ####[facility] [address] [place] [id number]. Osmar Cox Laboratory Studieson 018 Albumin [Mass/Vol] 3.8 g/dL 3.2-5.5 [facility] Albumin/Globulin [Mass ratio] 1.5 {ratio} [facility] ALP [Catalytic activity/Vol] 75 U/L 32-92 [facility] ALT No additional P-5'-P [Catalytic activity/Vol] 16 U/L 10-60 [facility] AST [Catalytic activity/Vol] 18 U/L 10-42 [facility] Basophils (Bld) [#/Vol] 0.1 10*3/uL 0.0-0.2 [facility] Basophils/100 WBC (Bld) 1.0 % [facility] Bilirubin [Mass/Vol] 0.5 mg/dL 0.3-1.2 [facility] Calcium [Mass/Vol] 9.2 mg/dL 8.2-10.2 [facility] Carbamazepine [Mass/Vol] < 2.0 ug/mL Low 4.0-12.0 [facility] Chloride [Moles/Vol] 103 mmol/L 95-114 [facility] CK [Catalytic activity/Vol] 46 U/L 22-269 [facility] CK.MB [Mass/Vol] 1.0 ng/mL 0.6-6.3 [facility] CK.MB Calc [Catalytic fraction] 2.1 0.00-2.50 [facility] CO2 [Moles/Vol] 24.9 mmol/L 22.0-30.0 [facility] Creatinine [Mass/Vol] 0.58 mg/dL 0.44-1.03 [facility] Eosinophils (Bld) [#/Vol] 0.2 10*3/uL 0.0-0.45 [facility] Eosinophils/100 WBC (Bld) 3.1 % [facility] Erythrocyte distribution width (RBC) [Ratio] 13.5 % 11.9-15.3 [facility] Ethanol [Mass/Vol] mg/dL [facility] Ethanol [Mass/Vol] TNP [facility] Comment on above: Test not performed GFR/1.73 sq M predicted among blacks MDRD (S/P/Bld) [Vol rate/Area] mL/min/{1.73_m2} [facility] Comment on above: GFR estimated refere nce range: According to KDOQI guidelines, <60 ml/min/1.73m2 is sufficient to diagnose a patient with chronic kidney disease. GFR/1.73 sq M predicted among non-blacks MDRD (S/P/Bld) [Vol rate/Area] mL/min/{1.73_m2} [facility] Globulin (S) [Mass/Vol] 2.6 g/dL [facility] Glucose [Mass/Vol] 96 mg/dL 70-100 [facility] Comment on above: ADA recommended refe rence range Random Glucose Reference Range is dependent on time and content of last meal. Glucose of more than 200 mg/dL in a nonstressed, ambulatory subject supports the diagnosis of Diabetes Mellitus. Hematocrit (Bld) [Volume fraction] 38.7 % 34.0-46.4 [facility] Hemoglobin (Bld) [Mass/Vol] 12.8 g/dL 11.8-15.4 [facility] Lymphocytes (Bld) [#/Vol] 2.1 10*3/uL 1.00-4.8 [facility] Lymphocytes/100 WBC (Bld) 33.0 % [facility] MCH (RBC) [Entitic mass] 28.3 pg 24.7-34.3 [facility] MCHC (RBC) [Mass/Vol] 33.1 g/dL 32.0-35.0 [facility] MCV (RBC) [Entitic vol] 85.4 fL 80-100 [facility] Monocytes (Bld) [#/Vol] 0.5 10*3/uL 0.0-0.8 [facility] Monocytes/100 WBC (Bld) 7.2 % [facility] Neutrophils (Bld) [#/Vol] 3.5 10*3/uL 1.8-7.7 [facility] Neutrophils/100 WBC (Bld) 55.7 % [facility] Creatinine Clearance (Chem 87.4588 [facility] Platelet mean volume (Bld) [Entitic vol] 6.9 fL 6.3-10.7 [facility] Platelets (Bld) [#/Vol] 270 10*3/uL 150-450 [facility] Potassium [Moles/Vol] 4.3 mmol/L 3.5-5.1 [facility] Protein [Mass/Vol] 6.4 g/dL 6.1-7.9 [facility] RBC (Bld) [#/Vol] 4.52 10*6/uL 3.60-5.00 [facility] Sodium [Moles/Vol] 136 mmol/L 136-146 [facility] Troponin I.cardiac [Mass/Vol] ng/mL 0-0.02 [facility] Comment on above: RIZWANA OR Cut off value > or equal to 0.03 ng/mL in conjunction with clinical conditions of myocardial infarction. (www.escardio.org/guidelines) Urea nitrogen [Mass/Vol] 18 mg/dL 9-23 [facility] Valproate [Mass/Vol] 52.6 ug/mL 50.0-100.0 [facility] Comment on above: Last dose: - WBC (Bld) [#/Vol] 6.3 10*3/uL 3.8-11.6 [facility] Amphetamines Ql (U) Negative [facility] Barbiturates Ql (U) Negative [facility] Benzodiazepines Ql (U) Negative [facility] Bilirubin Ql (U) Negative [facility] Cannabinoids Screen Ql (U) Negative [facility] Comment on above: These are unconfirme d results and should not be used for legal purposes. Drug Cut-Off Concentration: AMPH 1000 ng/mL ALFREDO 200 ng/mL JAXON 200 ng/mL COCM 300 ng/mL OP 300 ng/mL PCP 25 ng/mL THC 20 ng/mL Clarity Refractometry automated (U) Clear [facility] Cocaine Ql (U) Negative [facility] Color (U) Yellow [facility] Glucose Auto test strip (U) [Mass/Vol] Normal mg/dL [facility] Hemoglobin Auto test strip Ql (U) Negative [facility] Ketones (U) [Mass/Vol] Negative [facility] Leukocyte esterase Auto test strip Ql (U) Negative [facility] Nitrite Ql (U) Negative [facility] Opiates Ql (U) Negative [facility] pH (U) 6.5 [pH] 5.0-9.0 [facility] Phencyclidine Ql (U) Negative [facility] Protein (U) [Mass/Vol] Negative [facility] Specific gravity (U) [Rel density] 1.018 1.001-1.030 [facility] Urobilinogen (U) [Mass/Vol] Normal mg/dL [facility] Vital Signs Date Time Vital Sign Value Performing Clinician Facility 09-02-2022 13:44-0400 Blood Pressure Location Ganga ZUNIGAAn [facility] [place] 09-02-2022 13:44-0400 Diastolic blood pressure 82 mm[Hg] Ganga NILL [facility] [place] 09-02-2022 13:44-0400 Heart rate 72 /min Ganga NILL [facility] [place] 09-02-2022 13:44-0400 Respiratory rate 16 /min Ganga NILL [facility] [place] 09-02-2022 13:44-0400 Systolic blood pressure 120 mm[Hg] Ganga NILL [facility] [place] 03-07-2019 15:00-0400 Body Temperature 97.8 [degF] [facility] 03-07-2019 15:00-0400 BP Diastolic 88 mm[Hg] [facility] 03-07-2019 15:00-0400 BP Systolic 158 mm[Hg] [facility] 03-07-2019 15:00-0400 Pulse (Heart Rate) 78 /min [facility] 03-07-2019 15:00-0400 Pulse Oximetry 95 % [facility] 03-07-2019 15:00-0400 Respiratory Rate 16 /min [facility] Body weight [facility] NEGATED: Highlighted row BMI (Body Mass Index) [facility] NEGATED: Highlighted row Height [facility] Encounters Encounter Date Encounter Type Care Provider Facility Start: 02-26-2025 ambulatory Dereck De La Rosa acility:[facility] Start: 06-28-2024 End: 06-29-2024 ambulatory [facility] Start: 12-15-2023 End: 12-15-2023 ambulatory [facility] Start: 10-21-2022 End: 10-22-2022 ambulatory Ganga PEARCE Facility:[facility] Start: 10-21-2022 End: 10-21-2022 Patient encounter procedure Ganga PEARCE [facility] [place] Start: 10-08-2022 Encounter for preprocedural laboratory examination DR GANGA PEARCE [facility] Start: 10-07-2022 End: 10-08-[address] GANGA PEARCE Facility:[facility] Start: 10-03-2022 End: 10-04-[address] GANGA PEARCE Facility:[facility] Start: 10-03-2022 End: 10-04-2022 Encounter for preprocedural laboratory examination DR GANGA PEARCE Facility:[facility] Start: 09-02-2022 End: 09-03-2022 ambulatory Ganga PEARCE Facility: [facility] Start: 09-02-2022 End: 09-02-2022 Patient encounter procedure Ganga PEARCE [facility] [place] Start: 08-11-2022 End: 08-11-[address] NOLA RAMIREZ Facility:[facility] Start: 08-06-2022 End: 08-07-[address] Nicolas Kirk Facility:[facility] Start: 07-28-2022 End: 07-29-2022 ambulatory NOLA RAMIREZ Facility:[facility] Start: 07-24-2022 End: 07-25-[address] JESSIE [...] End: 03-15-2019 Patient encounter procedure Nola ramses [facility] Start: 03-07-2019 End: 03-07-2019 Admission to day surgery Nola Ramirez [facility] Start: 02-01-2018 End: 02-01-2018 Emergency department patient visit Nola ramses [facility] Start: 06-07-2014 End: 06-12-2014 Evaluation and management of inpatient [facility] Start: 06-17-2011 End: 06-20-2011 Evaluation and management of inpatient [facility] Start: 05-01-2011 End: 05-18-2011 Evaluation and management of inpatient [facility] Start: 05-27-2010 End: 06-26-2010 Discharged Recurring [facility] Start: 05-22-2010 End: 06-21-2010 Discharged Recurring [facility] Start: 04-22-2010 End: 05-21-2010 Discharged Recurring [facility] Start: 03-22-2010 End: 04-21-2010 [facility] Start: 02-20-2010 End: 03-21-2010 Discharged Recurring [facility] Start: 01-20-2010 End: 02-19-2010 Discharged Recurring [facility] Start: 01-20-2010 End: 02-19-2010 Discharged Recurring [facility] Start: 01-16-2010 End: 01-19-2010 Discharged Recurring Nola Hoy [facility] Start: 12-23-2009 End: 01-19-2010 Discharged Recurring Nola Hoy [facility] Start: 11-23-2009 End: 12-22-2009 Discharged Recurring Nola ramses [facility] Start: 11-22-2009 End: 01-20-2010 Discharged Recurring Nola y [facility] Start: 10-22-2009 End: 11-21-2009 Discharged Recurring Nola Hoy [facility] Start: 10-15-2009 End: 11-22-2009 Discharged Recurring Nola [facility] Start: 09-22-2009 End: 10-21-2009 Discharged Recurring Nola [facility] Start: 08-22-2009 End: 09-21-2009 Discharged Recurring Nola Hoy [facility] Start: 08-06-2009 End: 08-21-2009 Discharged Recurring Nola y [facility] Start: 07-02-2009 End: 07-22-2009 Discharged Recurring Nola [facility] Start: 06-04-2009 End: 06-21-2009 Discharged Recurring Nola [facility] Start: 04-22-2009 End: 05-21-2009 Discharged Recurring Nola y [facility] Start: 03-22-2009 End: 04-21-2009 Discharged Recurring Nola [facility] Start: 02-20-2009 End: 03-21-2009 Discharged Recurring Nola [facility] Start: 02-10-2009 End: 02-10-2009 Emergency department patient visit Nola Hoy [facility] Start: 01-21-2009 End: 02-19-2009 Discharged Recurring Nola James [facility] Start: 12-24-2008 End: 01-19-2009 Discharged Recurring Nola Hoy [facility] Start: 11-23-2008 End: 12-22-2008 Discharged Recurring Nola Hoy [facility] Start: 10-22-2008 End: 11-21-2008 Discharged Recurring Nola Hoy [facility] Start: 09-22-2008 End: 10-21-2008 Discharged Recurring Nola ramses [facility] Start: 08-22-2008 End: 09-21-2008 Discharged Recurring Nola Hoy [facility] Start: 07-24-2008 End: 08-21-2008 Discharged Recurring Nola Hoy [facility] Start: 07-02-2008 End: 07-05-2008 Evaluation and management of inpatient Nola ramses [facility] Start: 06-22-2008 End: 07-22-2008 Discharged Recurring Nola Hoy [facility] Start: 06-05-2008 End: 06-14-2008 Evaluation and management of inpatient Nola ramses [facility] Start: 05-29-2008 End: 06-21-2008 Discharged Recurring Nola ramses [facility] Start: 04-24-2008 End: 05-21-2008 Discharged Recurring Nola [facility] Start: 03-22-2008 End: 04-21-2008 Discharged Recurring Nola Hoy [facility] Start: 02-21-2008 End: 03-21-2008 Discharged Recurring Nola Ramirez [facility] Start: 02-14-2008 End: 02-20-2008 Discharged Recurring Nola Ramirez [facility] Start: 12-23-2007 End: 01-20-2008 Discharged Recurring Nola Ramirez [facility] Start: 12-20-2007 End: 12-23-2007 Evaluation and management of inpatient Nola Ramirez [facility] Start: 11-22-2007 End: 12-22-2007 Discharged Recurring Nola Ramirez [facility] Start: 10-22-2007 End: 11-21-2007 Discharged Recurring Nola Ramirez [facility] Start: 09-22-2007 End: 10-21-2007 Discharged Recurring Nola Ramirez [facility] Start: 08-22-2007 End: 09-21-2007 Discharged Recurring Nola Ramirez [facility] Start: 07-23-2007 End: 08-21-2007 Discharged Recurring Nola Ramirez [facility] Start: 06-22-2007 End: 07-22-2007 Discharged Recurring Nola Ramirez [facility] Start: 05-22-2007 End: 06-21-2007 Discharged Recurring Nola ramses [facility] Start: 04-28-2007 End: 04-28-2007 Emergency department patient visit Nola Ramirez [facility] Start: 04-28-2007 End: 04-28-2007 Patient encounter procedure Nola ramses [facility] Start: 04-28-2007 End: 05-21-2007 Discharged Recurring Nola [facility] Start: 03-01-2002 End: 03-21-2002 Discharged Recurring Nola [facility] Start: 03-01-2002 End: 03-04-2002 [facility] Start: 03-24-2001 End: 03-24-2001 Discharged Recurring Nola [facility] Start: 03-24-2001 End: 04-04-2001 [facility] Start: 09-27-1996 End: 09-30-1996 Evaluation and management of inpatient [facility] Start: 08-19-1995 End: 08-19-1995 [facility] Start: 09-27-1993 End: 09-27-1993 Patient encounter procedure [facility] Procedures Date Procedure Procedure Detail [...] NILL Payers Date Payer Category Payer Unknown [id number] 2023 Self-pay 1960 Medicaid [id number] 1960 Medicare [id number] 1959 Self-pay [id number] 1959 Unknown [id number] 2.16.8 [id number] 1959 Unknown [id number] 2.16.84 0.1.092507.3.579.2.593 1959 Unknown [id number] 2.16.84 0.1.265327.3.579.2.593 1959 Unknown [id number] 2.16.84 0.1.441320.3.579.2.593 1959 Unknown [id number] 2.16.84 0.1.858689.3.579.2.593 1959 Unknown [id number] 2.16.84 0.1.273574.3.579.2.593 1959 Unknown [id number] 2.16.84 0.1.603226.3.579.2.593 1959 Unknown [id number] 2.16.84 0.1.393394.3.579.2.593 1959 Unknown [id number] 2.16.84 0.1.556451.3.579.2.593 1959 Unknown [id number] 2.16.84 0.1.268679.3.579.2.593 1959 Unknown [id number] 2.16.84 0.1.649607.3.579.2.593 1959 Unknown [id number] 2.16.84 0.1.466423.3.579.2.593 1959 Unknown [id number] 2.16.84 0.1.074462.3.579.2.593 1959 Unknown [id number] 2.16.84 0.1.659343.3.579.2.593 1959 Unknown [id number] 2.16.84 0.1.040019.3.579.2.593 1959 Unknown [id number] 2.16.84 0.1.575990.3.579.2.593 1959 Unknown [id number] 2.16.8 40.1.681441.3.579.2.727 1959 Unknown [id number] 2.16.8 40.1.714303.3.579.2.727 1959 Unknown [id number] 2.16.8 40.1.821446.3.579.2.727 Medicare [id number] Unknown [id number] 2.16.8 40.1.869308.3.579.2.531 Social History Date Type Detail Facility Start: 09-02-2022 Tobacco smoking status Ex-smoker (fi nding) [facility] Tobacco smoking status Never [facility] [place] Sex Assigned At Female [facility] [place] Medical Equipment Procedure Code Equipment Code Equipment Origin al Text Equipment Identifier Dates HERNIA REPAIR, R OBOT ASSISTED CAIT LEHMAN, Ganga Salgado 12/05/20 Non Biological Abdomen {[id number] FDA Start: 12-05-2020 Functional Status Date Assessment Result Facility 09-02-2022 Functional Status N/A General Joe [facility] [place] Progress note 06-28-2024 Note Date & Type Note Facility 06-28-2024 Note [facility] Subjective Ebony Medley is a [...] pain. No palpit (more content not included)... [facility] Progress note 12-15-2023 Note Date & Type Note Facility 12-15-2023 Note [facility] Subjective Ebony Medley is a [...] is not ill-ap (more content not included)... [facility] Clinical Note 10-07-2022 Note Date & [...] good condition. CC: Nola Ramirez M.D. [facility] Clinical Note 09-02-2022 Note Date & [...] Allergies Social Hi (more content not included)... [facility] Comment on above: Result Comment: Elec tronically Signed By: CAIT LEHMAN, Ganga Salgado\shaheed\Date and Time Signed: 09/02/22 15:31 EDT Evaluation + Plan note Note Date & Type Note Facility Evaluation + Plan note No data available for this section [facility] Discharge instructions Note Date & Type Note Facility Hospital Discharge instructions No data available for this section [facility] [place] Progress note Note Date & Type Note [...] section and content) DATE CREATED AUTHOR 07/31/2022 [facility] DATE CREATED AUTHOR AUTHOR'S ORGANIZ ATION 10/14/2022 [facility] DATE CREATED AUTHOR AUTHOR'S ORGANIZ ATION 10/22/2022 [facility] DATE CREATED AUTHOR AUTHOR'S ORGANIZ ATION 07/19/2024 [facility] DATE CREATED AUTHOR AUTHOR'S ORGANIZ ATION 02/27/2025 [facility] Patient Care team informatio n (unrecognized section and content) Personnel Name: Nola Ramirez MD Address: Address: [address] [place] [address] Name: Toya Laundry Machine OperatorFlorence Personnel Name: Nola Ramirez MD Address: Address: [address] [place] [address] Name: Toya Laundry Machine Operator, Amy FOR RECORDS PERTAINING TO PATIENTS [...] BE BASED ON THE PRIMARY CLINICAL RECORDS. [employer] provides no warranty or guarantee of the accuracy or completeness of information in this document.
--- NOTE | 2025-03-06 10:08 | MM_ITS ---
Patient Name: NAZARIO MEDLEY MR#: [id number] : 1960 Exam Date: 03/06/2025 Ordering Doctor: DR Thanh Ramirez . RADIOLOGY REPORT PROCEDURE: MM SCREENING BI COMPARISON: MG MAMM SCREEN ZEKE W CAD, 02/15/2019. MG MAMM SCREEN ZEKE W CAD, 01/28/2018. MG MAMM ZEKE SCRN W CAD DIG, 07/23/2015. MG MAMM ZEKE SCRN W CAD DIG, 04/12/2013. INDICATIONS: Screening Calculator Name NCI Breast Cancer Risk Assessment Tool 5 Year Breast Cancer Risk 1.80% Lifetime Breast Cancer Risk 6.60% Personal Breast Cancer No Personal Ovarian Cancer No Treatments None Family Cancers Grandfather-maternal with bone cancer at age 60. LOCATION: [facility] BREAST COMPOSITION: There are scattered areas of fibroglandular density. FINDINGS: DIAGNOSTIC CATEGORY 1--NEGATIVE. RIGHT BREAST: No significant suspicious finding. LEFT BREAST: No significant suspicious finding. RECOMMENDATIONS: ROUTINE MAMMOGRAM AND CLINICAL EVALUATION IN 12 MONTHS. PLEASE NOTE: A NORMAL MAMMOGRAM DOES NOT EXCLUDE THE POSSIBILITY OF BREAST CANCER. A CLINICALLY SUSPICIOUS PALPABLE LUMP SHOULD BE BIOPSIED. Dictated by: Gerardo Neal DO on 03/06/2025 at 16:14 Approved by: Gerardo Neal DO on 03/06/2025 at 16:16
== END 2025-03-06 10:04 | disposition home or self-care (01) ==
LOC: MAMMO 10:03
PROVIDERS: PCP Family Medicine; Visit Provider Family Medicine
DX: Z12.31 Encounter for screening mammogram for malignant neoplasm of breast (principal); Z80.8 Family history of malignant neoplasm of other organs or systems; I27.20 Pulmonary hypertension, unspecified
CPT/HCPCS: 77063; 77067

== ENCOUNTER 2025-03-14 11:14 | Outpatient (OUT) | payer MEDICARE, SELFPAY ==
[2025-03-14 11:51] LABS: Alanine Aminotransferase 25 U/L (14-59); Albumin Level 3.6 g/dL (3.4-5.0); Alkaline Phosphatase 167 U/L (46-116); Amylase 37 U/L (25-115); Aspartate Amino Transferase 14 U/L (15-37); Bilirubin Total 0.6 mg/dL (0.2-1.0); Calcium 9.5 mg/dL (8.5-10.1); Carbon Dioxide 27.6 mmol/L (21.0-32.0); Chloride 102 mmol/L (98-107); Estimated GFR (African America >60 (>=60 mL/min/1.73m^2); Estimated GFR (Non-African Ame 56 (>=60 mL/min/1.73m^2); Globulin 3.6 g/dL; Glucose 114 mg/dL (74-106); Potassium 3.6 mmol/L (3.5-5.1); Sodium 140 mmol/L (136-145); Total Protein 7.2 g/dL (6.4-8.2)
[2025-03-14 11:53] LABS: Basophils Absolute Auto 0.1 10^3/uL (0.0-0.1); Basophils Percent Auto 0.5 % (0.2-2.0); Eosinophils Percent Auto 0.1 % (0.9-7.0); Hematocrit 44.3 % (36.0-48.0); Hemoglobin 14.3 g/dL (12.0-16.0); Immature Granulocytes Pct Auto 0.7 % (0.0-0.5); Lymphocytes Absolute Auto 2.5 10^3/uL (1.2-3.8); Mean Corpuscular HGB Conc 32.3 g/dL (29.9-35.2); Mean Corpuscular Hemoglobin 27.2 pg (26.7-34.0); Mean Corpuscular Volume 84.4 fL (81.0-99.0); Mean Platelet Volume 8.7 fL (9.5-13.5); Monocytes Absolute Auto 1.5 10^3/uL (0.3-0.8); Monocytes Percent Auto 9.7 % (1.7-12.0); Neutrophils Absolute Auto 10.8 10^3/uL (1.4-6.5); Platelet Count 404 10^3/uL (150-450); Red Blood Count 5.25 10^6/uL (4.20-5.40); Red Cell Distribution Width 14.5 % (11.0-15.0)
[2025-03-14 11:57] LABS: INR 1.05; Partial Thromboplastin Time 26.5 sec (22.3-36.2); Prothrombin Time 11.1 sec (9.0-11.6)
== END 2025-03-14 11:15 | disposition home or self-care (01) ==
PROVIDERS: PCP Family Medicine; Visit Provider Family Medicine
DX: K52.9 Noninfective gastroenteritis and colitis, unspecified (principal); D72.829 Elevated white blood cell count, unspecified; I10 Essential (primary) hypertension; R11.2 Nausea with vomiting, unspecified; E07.89 Other specified disorders of thyroid; Z79.899 Other long term (current) drug therapy
CPT/HCPCS: 36415; 80053; 82150; 83690; 85025; 85610; 85730

== ENCOUNTER 2025-04-19 07:35 | Outpatient (RCR) | payer MEDICARE, SELFPAY ==
[2025-04-19 08:40] VITALS: BP 98/72; PULSE 65; TEMP 36.6; O2SAT 94
[2025-04-19] MEDS: 0.9 % SODIUM CHLORIDE 1,000 ML 1000 ML IV ×2 (09:09→09:45)
--- NOTE | 2025-04-19 09:21 | PC.NURSE ---
up to bathroom for urine collection. sent to lab
--- NOTE | 2025-04-19 09:27 | PC.NURSE ---
urine collected and sent to lab. clear light yellow urine. lab in for blood draw
[2025-04-19 09:40] LABS: Bilirubin Urine NEGATIVE (NEGATIVE); Blood Urine NEGATIVE (NEGATIVE); Clarity Urine CLEAR (CLEAR); Color Urine LT. YELLOW (YELLOW); Glucose Urine UA NEGATIVE (NEGATIVE); Ketones Urine NEGATIVE (NEGATIVE); Leukocyte Esterase Urine SMALL (NEGATIVE); Nitrite Urine POSITIVE (NEGATIVE); Protein Urine NEGATIVE (NEG/TRACE); Specific Gravity Urine <=1.005 (1.005-1.025); Urobilinogen Urine 0.2 EU/dL (0.2-1.0)
[2025-04-19 09:43] LABS: Basophils Percent Auto 0.5 % (0.2-2.0); Eosinophils Absolute Auto 0.2 10^3/uL (0.0-0.7); Eosinophils Percent Auto 2.4 % (0.9-7.0); Hematocrit 39.8 % (36.0-48.0); Hemoglobin 12.5 g/dL (12.0-16.0); Immature Granulocytes Abs Auto 0.08 10^3/uL (0.00-0.03); Lymphocytes Absolute Auto 2.5 10^3/uL (1.2-3.8); Lymphocytes Percent Auto 30.4 % (20.5-60.0); Mean Corpuscular HGB Conc 31.4 g/dL (29.9-35.2); Mean Platelet Volume 8.7 fL (9.5-13.5); Monocytes Absolute Auto 0.9 10^3/uL (0.3-0.8); Monocytes Percent Auto 11.3 % (1.7-12.0); Neutrophils Absolute Auto 4.4 10^3/uL (1.4-6.5); Neutrophils Percent Auto 54.4 % (43.0-75.0); Platelet Count 309 10^3/uL (150-450); Red Blood Count 4.63 10^6/uL (4.20-5.40); Red Cell Distribution Width 13.8 % (11.0-15.0); White Blood Count 8.1 10^3/uL (4.0-11.0)
[2025-04-19 09:53] LABS: Bacteria Urine LARGE #/HPF (NONE SEEN); Cast Seen? NONE SEEN #/LPF (NONE SEEN); Crystals Seen? None Seen #/HPF (None Seen); Mucus Urine NONE SEEN (NONE SEEN); RBC Urine NONE SEEN #/HPF (0-2); Squamous Epithelial Cell Urine RARE #/LPF (NONE/RARE)
[2025-04-19 09:54] LABS: Urine Culture Indicated ALREADY ORDERED
[2025-04-19 10:04] LABS: Alanine Aminotransferase 33 U/L (14-59); Albumin Level 3.1 g/dL (3.4-5.0); Alkaline Phosphatase 182 U/L (46-116); Amylase 29 U/L (25-115); Anion Gap 14.3; Aspartate Amino Transferase 18 U/L (15-37); Bilirubin Total 0.3 mg/dL (0.2-1.0); Calcium 8.7 mg/dL (8.5-10.1); Carbon Dioxide 23.1 mmol/L (21.0-32.0); Chloride 108 mmol/L (98-107); Estimated GFR (African America >60 (>=60 mL/min/1.73m^2); Estimated GFR (Non-African Ame >60 (>=60 mL/min/1.73m^2); Globulin 3.2 g/dL; Glucose 114 mg/dL (74-106); Potassium 4.4 mmol/L (3.5-5.1); Sodium 141 mmol/L (136-145); Total Protein 6.3 g/dL (6.4-8.2)
--- NOTE | 2025-04-19 11:09 | XR_ITS ---
The [address] [address] Patient Name: NAZARIO MEDLEY MRN: [id number] date: 1960 Sex: F Assigned Patient Location: [facility] Current Patient Location: [facility] Accession/Order Number: [id number] Exam Date: 04/19/2025 11:31 Report Date: 04/19/2025 11:35 At the request of: NOLA VALENCIA MD Procedure: XR acute abdomen series ACUTE ABDOMEN SERIES WITH PA CHEST: CLINICAL HISTORY: Vomiting and diarrhea for the past 4 days COMPARISON: Chest x-ray 06/04/[address] abdomen 11/06/2020 The chest film shows continued slight elevation right hemidiaphragm. There is basilar atelectasis and/or scarring. No sizable effusion or pneumothorax. The cardiac and basilar contours are stable. Supine and upright views of the abdomen and pelvis demonstrate air and moderate stool along the length of the colon. There is no small bowel dilatation, free air or air-fluid levels. No soft tissue masses or suspect renal calculi are seen. There is levoscoliotic curvature and degenerative change at the spine. Hemostasis clips are visualized at the right upper quadrant and pelvis. XR/XR acute abdomen series IMPRESSION: CHRONIC BIBASILAR PARENCHYMAL CHANGES. MODERATE COLONIC STOOL. NO ACUTE ABDOMINAL FINDINGS. Impression dictated by: Sona Miles M.D. 04/19/2025 11:35 AM Dictation Location: [place] [address] Electronically authenticated by: [id number] Y Date: 04/19/2025 11:35
[2025-04-20 05:08] LABS: Lithium (Eskalith(R)), Serum <0.1 mmol/L (0.5-1.2)
== END 2025-04-21 23:59 | disposition home or self-care (01) ==
LOC: INF 07:35
PROVIDERS: PCP Family Medicine; Visit Provider Family Medicine
DX: R11.2 Nausea with vomiting, unspecified (principal); K52.9 Noninfective gastroenteritis and colitis, unspecified; R82.998 Other abnormal findings in urine
CPT/HCPCS: 36415; 74022; 80053; 80178; 81001; 82150; 83690; 85025; 87086; 87088; 87186; 96360; 96361

== ENCOUNTER 2025-08-03 09:51 | Outpatient (OUT) | payer MEDICARE, SELFPAY ==
--- OUTSIDE RECORDS SUMMARY | 2025-08-03 10:08 | XMS_ITS | CCD ---
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 Name Role Phone Nola Ramirez Primary Care [...] GAGAN Attending Unavailable SAMSA GAGAN Admitting Unavailable SAMSA GAGAN Consulting Unavailable JAMES, DR VACA Primary Care [...] Care Unavailable JAMES, DR VACA Attending Unavailable HOY, DR VACA Admitting Unavailable Zieber, DR Valenzuela Consulting Unavailable JAMES, DR VACA Primary Care Unavailable SAMSA, GAGAN Attending Unavailable SAMSA, GAGAN Admitting Unavailable SAMSA, GAGAN Consulting Unavailable MOUKARBEL, DR ROMAN Consulting Unavailable HOY, DR VACA Primary Care Unavailable MOUKARBEL, DR ROMAN Attending Unavailable MOUKARBEL, DR ROMAN Admitting Unavailable WEST, DR CONSUELO Ellsworth Consulting Unavailable HOY, DR VACA Primary Care Unavailable SAMSA, GAGAN [...] Attending Unavailable NILL, Ganga Salgado Attending Unavailable Nola Ramirez MD Primary Care Provider [phone] Dereck Walker MD Attending Provider Nola Ramirez MD Attending Provider [phone] Nola Ramirez Admitting Unavailable Nola Ramirez Attending Unavailable Dereck Walker Admitting Unavailab Dereck Maldonado Attending Unavailab Nola De La Fuente Primary Care Unavailable JESSIE ARNETT Attending Unavailable Allergies Allergy Classification Reported Allergen(s) Allergy Type Date of Onset Reaction(s) Facility (1 source) 58076,00 Drug allergy (disorder) 1 [facility] Repository (1 source) oxyCODONE; Translations: [OxyCODONE Hydrochloride] Drug Allergy [facility] Repository (1 source) No Known Medication Allergies; Translations: [No Known Medication Allergies] Propensity to adverse reactions (disorder) [facility] Repository Medications Current Medications Medication Drug [...] 0 Start Date: 08/26/22 Status: Ordered buPROPion (13 sources) Aminoketone Start: 08-26-2022 buPROPion 150 mg ER Tab Refills(s) 0 Start Date: 08/26/22 Status: Ordered Start: 03-31-2022 take 1 tablet by chaparrita th once daily Bupropion Hcl 150 mg Tablet Extended Release 24 Hr Active 150 MG PO Daily March 31, 2022 12:00am Start: 03-27-2022 End: 03-31-2022 Bupropion Hcl 300 mg tablet extended release 24 hr Discontinued 450 MG PO Daily March 27, 2022 8:27am March 31, 2022 11:44am Start: 06-13-2019 End: 03-27-2022 take 300 mg by mouth once daily Bupropion Hcl 300 MG O ral Daily June 13, 2019 Active Start: 06-01-2019 End: 06-13-2019 take 150 mg by mouth once daily Bupropion Hcl [Wellbut rin Xl] 150 MG Oral Daily June 01, 2019 June 13, 2019 Discontinued Start: 02-27-2019 End: 03-07-2019 take 1 tablet by mouth once daily Bupropion Hcl [Wellbutrin Sr] 1 TAB Oral Daily February 27, 2019 March 07, 2019 Discontinued busPIRone hydrochloride 15 mg oral tablet (6 sources) Start: 08-26-2022 take 1 tablet by mouth once daily busPIRone 15 mg Tab 15 mg = 1 tab(s), Oral, Daily, Refills(s) 0 Start Date: 08/26/22 Status: Ordered Start: 03-31-2022 take 1 tablet by chaparrita th three times daily Buspirone 15 mg Tablet Active 15 MG PO Three times daily 45 March 31, 2022 12:00am Start: 08-15-2018 End: 06-01-2019 take 20 mg by mouth three times daily Buspirone 20 MG Oral Three times daily 180 August 15, 2018 Discontinued Start: 08-15-2018 End: 06-01-2019 take 2 tablets by mouth three times daily Buspirone 10 mg Tablet Discontinued 20 MG PO Three times daily 180 August 15, 2018 12:00am June 01, 2019 4:14pm cariprazine 6 mg oral capsule (11 sources) Atypical Antipsychotic Start: 11-29-2020 take 1 [...] August 01, 2018 February 27, 2019 Discontinued hydrOXYzine pamoate 50 mg oral capsule (13 sources) Antihistamine Start: 03-31-2022 take 1 capsule by mouth every six hours as needed for anxiety Hydroxyzine Pamoate 50 mg Capsule Active 50 MG PO Q6H as needed for Anxiety 30 March 31, 2022 12:00am Start: 06-13-2019 End: 03-27-2022 take 50 mg by mouth twice daily [...] daily as needed for pain Hydroxyzine Pamoate (Vistaril) 50 mg Capsule Discontinued 1 TAB PO Twice daily as needed for Pain February 27, 2019 12:00am June 01, 2019 4:14pm lithium carbonate 300 mg ora l capsule (17 sources) Start: 08-26-2022 lithium 300 mg Cap Refills(s) 0 Start Date: 08/26/22 Status: Ordered Start: 06-13-2019 take 600 mg by mouth at bedtim e [place] Carbonate 600 MG Oral Bedtime 14 June 13, 2019 Active Start: 06-13-2019 take 300 mg by mouth once aarti y [place] Carbonate 300 MG Oral Daily 14 June 13, 2019 Active Start: 06-13-2019 take 2 tablets by mo uth at bedtime [place] Carbonate 300 mg Tablet Active 600 MG PO Bedtime June 13, 2019 12:00am Start: 06-01-2019 End: 06-13-2019 take 300 mg by mouth at bedtime [place] Carbonate 300 MG Oral Bedtime June 01, 2019 June 13, 2019 Discontinued Start: 08-15-2018 End: 06-01-2019 take 150 mg by mouth at bedtime [place] Carbonate 150 MG Oral Bedtime February 27, 2019 June 01, 2019 Discontinued Start: 08-15-2018 End: 06-01-2019 [place] Carbonate 300 mg tab let Discontinued 150 MG PO Bedtime February 27, 2019 10:44am June 01, 2019 4:14pm lurasidone hydrochloride 80 mg oral tablet (17 sources) Atypical Antipsychotic Start: 06-13-2019 take 1 tablet by mouth once daily Latuda 80 mg oral tablet 80 mg = 1 tab(s), Oral, Daily, Other (see comment) Start Date: 11/29/20 Status: Ordered Start: 06-01-2019 End: 06-13-2019 take 60 mg [...] 2018 Discontinued Start: 08-02-2018 End: 08-02-2018 take 1 tablet by mouth once daily Lurasidone (Latuda) 40 mg tablet Discontinued 40 MG PO Daily with supper August 02, 2018 12:00am August 02, 2018 10:47am Start: 02-01-2018 End: 08-01-2018 take 60 mg [...] Status: Ordered mirtazapine 15 mg oral tablet (9 sources) Start: 03-31-2022 mirtazapine 15 mg Tab Refills(s) 0 Start [...] August 02, 2018 Discontinued Start: 02-01-2018 End: 08-02-2018 take 1 tablet by mouth at bedtime as needed for sleep Mirtazapine 15 mg tablet Discontinued 15 MG PO Bedtime as needed for Sleep August 02, 2018 12:00am August 02, 2018 10:47am OLANZapine 5 mg oral tablet (3 sources) Atypical Antipsychotic Start: 03-31-2022 olanzapine 5 mg oral tablet Refills(s) 0 Start Date: 08/26/22 Status: Ordered ondansetron 4 mg disintegrating oral tablet (4 sources) Serotonin-3 Receptor Antagonist Start: 03-27-2022 take 1 tablet by mouth twice daily as needed for nausea Ondansetron 4 mg Tablet,Disintegra ting Active 4 MG PO Twice daily as needed for Nausea March 27, 2022 12:00am Start: 02-01-2018 End: 02-27-2019 take 4 mg by mouth every six hours as needed for nausea Ondansetron Hcl 4 MG Oral Q6H PRN For Nausea February 01, 2018 February 27, 2019 Discontinued pantoprazole 40 mg delayed release oral tablet [...] Status: Ordered tiZANidine 4 mg oral tablet (12 sources) Central alpha-2 Adrenergic Agonist Start: 11-18-2020 take 2 tablets by mouth at bedtime Tizanidine 4 mg tablet Active 8 MG PO Bedtime March 27, 2022 8:27am Start: 06-13-2019 take 6 mg by mouth at bedtime Tizanidine 6 MG Oral Bedtime June 13, 2019 Active Start: 06-13-2019 End: 03-27-2022 take 6 mg by mouth at bedtime Tizanidine 4 mg Tablet Discontinued 6 MG PO Bedtime June 13, 2019 12:00am March 27, 2022 8:27am Start: 06-01-2019 End: 06-13-2019 take 8 mg by mouth at bedtime Tizanidine 8 MG Oral Bed time June 01, 2019 Discontinued Start: 06-01-2019 End: 06-13-2019 Tizanidine (Zanaflex) 4 mg t ablet Discontinued 8 MG PO Bedtime June 01, 2019 12:00am June 13, 2019 12:29pm Start: 02-01-2018 End: 06-01-2019 take 8 mg by mouth at bedtime Tizanidine 8 MG Oral Bed time February 01, 2018 Discontinued Start: 02-01-2018 End: 06-01-2019 take 2 capsules by mouth at bedtime Tizanidine 4 mg capsule Discontinued 8 MG PO Bedtime February 01, 2018 12:00am June 01, 2019 4:14pm zolpidem tartrate 10 mg oral tablet (1 source) gamma-Aminobutyric Acid-ergic Agonist Start: 03-27-2022 take 1 tablet by mouth once daily at bedtime as needed for sleep Zolpidem (Ambien) 10 mg Tablet Active 10 MG PO Daily at bedtime as needed for Sleep March 27, 2022 12:00am Completed/Discontinued Medications Medication Drug Class(es) Dates Sig (Normalized) Sig (Original) carBAMazepine 200 mg oral tablet (3 sources) Mood Stabilizer Start: 02-01-2018 End: 08-01-2018 take 100 mg by mouth three times daily Carbamazepine 100 MG Oral Three times daily February 01, 2018 Discontinued Start: 02-01-2018 End: 08-01-2018 take 1 tablet by mouth three times daily Carbamazepine (Tegretol) 200 mg Tablet Discontinued 100 MG PO Three times daily February 01, 2018 12:00am August 01, 2018 2:52pm cholecalciferol 1000 unt oral tablet (3 sources) Vitamin D Start: 06-13-2019 take 3000 [IU] by mouth once daily Cholecalciferol (Vitamin D3) 3000 UNIT Oral Daily June 13, 2019 Active Start: 06-13-2019 End: 03-27-2022 take 3 tablets by mouth once daily Cholecalciferol (Vitamin D3) (Vitamin D3) 1,000 unit Tablet Discontinued 3000 UNIT PO Daily June 13, 2019 12:00am March 27, 2022 8:28am clonazePAM 0.5 mg oral tablet (3 sources) Benzodiazepine Start: 08-01-2018 End: 08-15-2018 take 0.5 mg by mouth four times daily Clonazepam 0.5 MG Oral Four times daily August 01, 2018 August 15, 2018 Discontinued 24 hr desvenlafaxine succinate 50 mg extended release oral tablet (6 sources) Serotonin and Norepinephrine Reuptake Inhibitor Start: 08-15-2018 End: 06-01-2019 take 100 mg by mouth once daily Desvenlafaxine Succinate [Pristiq] 100 MG Oral Daily 60 August 15, 2018 June 01, 2019 Discontinued Start: 02-01-2018 End: 08-02-2018 take 100 mg by mouth once daily Desvenlafaxine Succinate 100 MG Oral Daily February 01, 2018 Discontinued esomeprazole 20 mg delayed release oral capsule (6 sources) Proton Pump Inhibitor Start: 02-27-2019 End: 06-01-2019 take 1 tablet by mouth once daily Esomeprazole Magnesium [Nexium] 1 TAB Oral Daily February 27, 2019 June 01, 2019 Discontinued Start: 02-01-2018 End: 08-15-2018 take 40 mg by mouth twice daily Esomeprazole Magnesium 40 MG Oral Twice daily February 01, 2018 Discontinued fenofibrate 145 mg oral tablet (6 sources) Peroxisome Proliferator Receptor alpha Agonist Start: 02-27-2019 End: 06-01-2019 take 1 tablet by mouth once daily Fenofibrate Nanocrystallized [Tricor] 1 TAB Oral Daily February 27, 2019 June 01, 2019 Discontinued Start: 02-01-2018 End: 08-02-2018 take 145 mg by mouth once daily Fenofibrate Nanocrystallized [Tricor] 145 MG Oral Daily February 01, 2018 August 02, 2018 Discontinued ibuprofen 200 mg oral tablet (3 sources) Nonsteroidal Anti-inflammatory Drug Start: 02-01-2018 End: 08-01-2018 take 800 mg by mouth every six hours as needed for pain Ibuprofen [Motrin Ib] 800 MG Oral Q6H PRN For Pain February 01, 2018 August 01, 2018 Discontinued Start: 02-01-2018 End: 08-01-2018 Ibuprofen (Motrin Ib) 200 mg Tablet Discontinued 800 MG PO Q6H as needed for Pain February 01, 2018 12:00am August 01, 2018 2:52pm lubiprostone 0.008 mg oral capsule (9 sources) Chloride Channel Activator Start: 02-27-2019 End: 06-01-2019 Lubiprostone [Amitiza] February 27, 2019 June 01, 2019 Discontinued Start: 02-27-2019 End: 06-01-2019 Lubiprostone (Amitiza) 8 mcg Capsule Discontinued February 27, 2019 12:00am June 01, 2019 4:14pm Start: 02-01-2018 End: 02-27-2019 take 24 ug by mouth twice daily Lubiprostone 24 MCG Oral Twice daily February 01, 2018 February 27, 2019 Discontinued naltrexone 380 mg injection (3 sources) Opioid Antagonist Start: 02-01-2018 End: 03-07-2019 Naltrexone Microspheres 380 MG Daily February 01, 2018 Discontinued Last dose given 07/22/18, next dose due 08/19/18. omeprazole 20 mg delayed release oral capsule (3 sources) Proton Pump Inhibitor Start: 08-15-2018 End: 02-27-2019 take 40 mg by mouth once daily Omeprazole 40 MG Oral Daily 60 August 15, 2018 February 27, 2019 Discontinued Start: 08-15-2018 End: 02-27-2019 take 2 capsules by mouth once daily Omeprazole 20 mg Capsule,Delayed Release(Dr/Ec) Discontinued 40 MG PO Daily 60 August 15, 2018 12:00am February 27, 2019 10:46am 24 hr oxybutynin chloride 5 mg extended release oral tablet (9 sources) Cholinergic Muscarinic Antagonist Start: 08-15-2018 End: [...] tablet by mouth once daily Oxybutynin Chloride (Ditropan Xl) 5 mg Tablet Extended Release 24hr Discontinued 1 TAB PO Daily February 27, 2019 12:00am June 01, 2019 4:14pm pramipexole dihydrochloride 0.25 mg oral tablet (9 sources) Nonergot Dopamine Agonist Start: 02-01-2018 End: 06-01-2019 take 1 tablet by mouth at bedtime Pramipexole (Mirapex) 0.25 mg Tablet Discontinued 1 TAB PO Bedtime February 27, 2019 12:00am June 01, 2019 4:14pm promethazine hydrochloride 25 mg oral tablet (6 sources) Phenothiazine Start: 06-01-2019 End: 03-27-2022 take 25 mg by mouth twice daily as needed for nausea Promethazine 25 MG Oral Twice daily PRN For Nausea June 01, 2019 Active Start: 02-01-2018 End: 08-01-2018 take 25 mg by mouth every four hours as needed for nausea Promethazine 25 MG Oral Q4H PRN For Nausea February 01, 2018 August 01, 2018 Discontinued propranolol hydrochloride 40 mg oral tablet (3 sources) beta-Adrenergic José Start: 02-01-2018 End: 08-01-2018 take 20 mg by mouth once daily Propranolol 20 MG Oral Daily February 01, 2018 Discontinued Start: 02-01-2018 End: 08-01-2018 Propranolol 40 mg tablet Dis continued 20 MG PO Daily February 01, 2018 12:00am August 01, 2018 2:53pm simvastatin 20 mg oral tablet (6 sources) HMG-CoA Reductase Inhibitor Start: 08-02-2018 End: 02-27-2019 take 1 tablet by mouth once daily in the evening Simvastatin 20 mg Tablet Discontinued 20 MG PO Every evening August 15, 2018 12:00am February 27, 2019 10:46am traZODone hydrochloride 100 mg oral tablet (9 sources) Serotonin Reuptake Inhibitor Start: 08-15-2018 End: [...] August 02, 2018 Discontinued Start: 02-01-2018 End: 08-02-2018 take 1 tablet by mouth at bedtime Trazodone 100 mg tablet Discontinued 100 MG PO Bedtime August 02, 2018 12:00am August 02, 2018 10:47am 24 hr divalproex sodium 500 mg extended release oral tablet (6 sources) Mood Stabilizer, Anti-epileptic Agent Start: 08-02-2018 End: 08-02-2018 take 1000 mg by mouth once daily Divalproex 1000 MG Oral Daily August 02, 2018 August 02, 2018 Discontinued Start: 08-02-2018 End: 08-02-2018 take 1000 mg by mouth once daily Divalproex 1000 MG Oral Daily August 02, 2018 Discontinued Start: 08-02-2018 End: 08-02-2018 Divalproex 500 mg tablet ext ended release 24 hr Discontinued 1000 MG PO Daily August 02, 2018 12:00am August 02, 2018 10:48am Start: 02-01-2018 End: 08-01-2018 take 500 mg [...] sources) Urinary incontinence 11-18-2020 Chronic Mood disorders (9 sources) Depressed bipolar I disorder; Translations: [Bipolar disorder] Onset: 2 02-02-2014 Chronic Nausea and vomiting (2 sources) Nausea; Translations: [Nausea] 06-02-2019 Episodic Other 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 source) skilled nursing (current) use of aspirin; Translations: [BRICK MAKER CURRENT USE OF ASPIRIN] Onset: 2 Episodic [...] 2 Episodic Schizophrenia and other psychotic disorders (2 sources) Acute exacerbation of chronic schizophrenia; Translations: [Schizophrenia, unspecified] 02-01-2018 Chronic Screening and history of mental health and substance abuse codes (1 source) Personal history of nicotine dependence; Translations: [PERSONAL HISTORY OF NICOTINE DEPEND] Onset: 2 Episodic Suicide and intentional self-inflicted injury (2 sources) Suicidal thoughts; Translations: [Suicidal ideations] 06-02-2019 Episodic Unclassified (1 source) ESOPHAGITIS UNSPEC WITHOUT BLEEDING; Translations: [ESOPHAGITIS UNSPEC WITHOUT BLEEDING] Onset: 2 Unclassified (4 sources) CONTACT W/AND (SUSP) EXPOS COVID-19; Translations: [CONTACT W/AND (SUSP) EXPOS COVID-19] Onset: 2 Past or Other Problems Problem Classification Problem Date Documented Da te Episodic/Chronic Other lower respiratory disease (5 sources) Other forms of dyspnea; Translations: [OTHER FORMS OF DYSPNEA] Onset: 06-02-2022 Episodic Unclassified (1 source) CONTACT W/AND (SUSP) EXPOS COVID-19; Translations: [CONTACT W/AND (SUSP) EXPOS COVID-19] Onset: 08-11-2022 Results Test Name Value Interpretation Reference Range Facility Office Visiton 07-02-2025 Follow-up visit [id number] Julia Medley 1960 F Date Provider Department Center 07/02/[address] [facility] Family History Problem Relation Age of Onset Hypertension Mother Diabetes Mother Hypertension Father Family Status - Relation Status Age at Mother Alive Father Level of Service:07988 NE OFFICE/OUTPATIENT ESTABLISHED LOW MDM 20 MIN Normal [facility] Urine Cultureon 04-19-2025 Bacteria identified Cx Nom (U) ORGANISM: Klebsiella variicola (O:KLEVAR) [place] Count >100,000 Aerobic MIL Charge (NMIC56) SUSCEPTIBILITY ORGANISM: O:KLEVAR ANTIBIOTIC INTERPRETATION MIL Amikacin S <16 Amoxacillin/K Clavulanate S <8 Ampicillin/Sulbactam S <4 Aztreonam S <4 Cefazolin S <2 Cefepime S <2 Ceftazidime S <1 Ceftriaxone S <1 Cefuroxime S <4 Ciprofloxacin S <0.25 Ertapenem S <0.5 Gentamicin S <2 Levofloxacin S <0.5 Meropenem S <1 Nitrofurantoin S <32 Piperacillin/Tazobactam S <8 Tetracycline S <4 Tigecycline S <2 Tobramycin S <2 Trimethoprim/Sulfamethoxazol e S <0.5 S = SUSCEPTIBLE I = INTERMEDIATE R = RESISTANT BLANK = DATA NOT AVAILABLE, OR DRUG NOT ADVISABLE OR TESTED R* = RESISTANCE DUE TO EXTENDED SPECTRUM BETA-LACTAMASES ESBL = EXTENDED SPECTRUM BETA-LACTAMASE TFG = THYMIDINE-DEPENDENT STRAIN FRANCES = BETA-LACTAMASE POSITIVE IB = INDUCIBLE BETA-LACTAMASE. APPEARS IN PLACE OF 'S' WITH SPECIES KNOWN TO POSSESS INDUCIBLE BETA-LACTAMASES. POTENTIALLY THEY MAY BECOME RESISTANT TO ALL B-LACTAM DRUGS. PERFORMED BY: [place] [address] PATHOLOGIST DEPARTMENT SPECIALIST FAMILIA MADRID M.D. Normal [facility] Comment on above: Performed By: #### C UU #### [address] 36on 07-18-2024 36 Regarding echo perfo rmed on 07/11/2024: MD Coral Meyers MA Her echo was ok, follow up in 1 year. Normal [facility] General Surgery Office/Clini c Noteon 10-21-2022 [...] Hypertension: Mother and Father. Normal [facility] Comment on above: Result Comment: Elec tronically Signed By: CAIT LEHMAN, Ganga Valencia\Date and Time Signed: 10/21/22 15:25 EST Operative Reporton 2 Operative Report [id number]#[id number]:127 Normal [facility] Operative Reporton 2 Operative Report [id number]#[id number]:[address] [facility] Pathology Noteon 10-09-2022 Pathology Note [id number]#1.00CD:[address] [facility] Lab Reportson 10-05-2022 Lab Reports [id number]#[id number]:[address] [facility] Covid-19 PCR (CVDTBH)on 09-22 SARS-CoV-2 (COVID-19) RNA ISABEL+probe Ql (Unsp spec) Not detected Normal NOT DETECTED [facility] Comment on above: Result Comment: This test is not yet approved or cleared by the [place] FDA. When there are no FDA-approved or cleared tests available, and other criteria are met, FDA can make tests available under an emergency access mechanism called an Emergency Use Authorization (EUA). The EUA for this test is supported by the [place] of Health and Human Service's (HHS's) declaration [...] with SARS-CoV-2. Performed By: #### C [facility] #### [facility] Laboratory [address] [place] [address] Dr. Osmar Cox Consent for Procedure/Surger yon 09-03-2022 Consent for Procedure/Surgery [id number]:127 Normal [facility] Ambulatory Visit Summaryon 1 Ambulatory Visit Summary EBONY DYE Nneka :1960 Visit Date:09/02/2022 Ambulatory Visit Instructions Your [...] difficile infection Memory loss Normal [facility] Outside [facility] Correspo ndenceon 08-19-2022 Outside [facility] Correspondence [id number]:127 Normal [facility] RAD - CT Reporton 08-19-2022 RAD - CT Report [id number]#[id number]:127 Normal [facility] RAD - MISCon 08-19-2022 RAD - MISC [id number]#[id number]:127 Normal [facility] Physician Referralon 022 Physician Referral [id number]#[id number]:127 Normal [facility] Covid-19 PCR (CVDTB)on 07-24 SARS-CoV-2 (COVID-19) RNA ISABEL+probe Ql (Unsp spec) Not detected Normal NOT DETECTED [facility] Comment on above: Result Comment: This test is not yet approved or cleared by the [place] FDA. When there are no FDA-approved or cleared tests available, and other criteria are met, FDA can make tests available under an emergency access mechanism called an Emergency Use Authorization (EUA). The EUA for this test is supported by the [employer] Consultant of Health and Human Service's (HHS's) declaration [...] SARS-CoV-2. Performed By: #### C VDTB #### [facility] Laboratory [address] [place] [address] Dr. Osmar Cox XR MODIFIED BARIUM SWALLOWon [...] Date: 2022-08-06 15:18 Normal [facility] Cardiovascular Lab Reporton 07-29-2022 Cardiovascular Lab Report [facility] Patient Name: [facility]ine [facility] MR #: [id number] Physician: Jessie De Oliveira of [facility] Medicine Service Date: 07/28/2022 Division of Birthdate: 1960 Cardiology Room #: [facility]ovascular Services [place] [address] Cardiovascular Laboratory Report INDICATIONS: The patient is [...] signed informed consent. She was brought to cathead worker in a fasting state. The right neck area was prepped and draped in usual fashion. Micropuncture technique and ultrasound guidance were used for access in the right internal jugular vein. A 6-[place] x 11 cm sheath was placed. A 6-[place] Suarez catheter was used for right heart catheterization and measurement of pressures and calculation of cardiac output using the estimated Karina method. Suarez catheter was removed. Micropuncture technique and ultrasound guidance were used for access in the right radial artery. A 5-[place] x 11 cm slender sheath was advanced. Verapamil was given through the sheath and heparin was administered intravenously. Bilateral selective coronary angiography was then performed using 5-[place]izen [place] JL 3.5 and JR5 diagnostic catheters. Catheters [...] in Cardiology Clinic. Electronically Signed by: Jessie rAnett M.D. 07/31/2022 06:38 A Jessie Arnett M.D. Date Dict: 07/28/2022/11:21 A/Jessie Arnett M.D. Date Trans: 07/29/2022 03:31 A/gladys [id number] cc: Nola Ramirez M.D. [address] [place] [facility] [address] Normal [facility] CBC AUTO DIFFon 07-24-2022 BASO # 0.1 103/ul Normal 0.0-0.1 [facility] Comment on above: Performed By: #### C BC #### [facility] Laboratory [address] [place] [address] [address] Osmar Cox Basophils/100 WBC (Bld) 0.9 % Normal 0.2-2.0 [facility] Comment on above: Performed By: #### C BC #### [facility] [address] [place] [address] [address] Osmar Cox EO # 0.0 103/ul Normal 0.0-0.7 [facility] Comment on above: Performed By: #### C BC #### [facility] [address] [place] [address] [address] Osmar Cox Eosinophils/100 WBC (Bld) 0.1 % Critically low 0.9-7.0 [facility] Comment on above: Performed By: #### C BC #### [facility] [address] [place] [address] Dr. Osmar Cox Erythrocyte distribution width (RBC) [Ratio] 15.4 % Critically high 11.0-15.0 [facility] Comment on above: Performed By: #### C BC #### [facility] [address] [place] [address] Dr. Osmar Cox Hematocrit (Bld) [Volume fraction] 40.7 % Normal 36.0-48.0 [facility] Comment on above: Performed By: #### C BC #### [facility] [address] [address] [address] Osmar Cox Hemoglobin (Bld) [Mass/Vol] 12.5 g/dL Normal 12.0-16.0 [facility] Comment on above: Performed By: #### C BC #### [facility] [address] [address] [address] Osmar Cox IG # 0.08 10e3/ul Critically high 0.00-0.03 [facility] Comment on above: Performed By: #### C BC #### [facility] [address] [address] [address] Osmar Cox IG % 0.7 % Critically high 0.0-0.5 [facility] Comment on above: Performed By: #### C BC #### [facility] [address] [address] [address] Osmar Cox LYMPH # 2.6 103/ul Normal 1.2-3.8 [facility] Comment on above: Performed By: #### C BC #### [facility] [address] [address] [address] Osmar Cox Lymphocytes/100 WBC (Bld) 22.8 % Normal 20.5-60.0 [facility] Comment on above: Performed By: #### C BC #### [facility] [address] [place] [address] Dr. Osmar Cox MANUAL DIFF REQ NO Normal [facility] Comment on above: Performed By: #### C BC #### [facility] [address] [place] [address] Dr. Osmar Cox MCH (RBC) [Entitic mass] 24.4 pg Critically low 26.7-34.0 [facility] Comment on above: Performed By: #### C BC #### [facility] [address] [place] [address] Dr. Osmar Cox MCHC (RBC) [Mass/Vol] 30.7 g/dL Normal 29.9-35.2 [facility] Comment on above: Performed By: #### C BC #### [facility] [address] [place] [address] Dr. Osmar Cox MCV (RBC) [Entitic vol] 79.3 fL Critically low 81.0-99.0 [facility] Comment on above: Performed By: #### C BC #### [facility] [address] [place] [address] Dr. Osmar Cox MONO # 1.0 103/ul Critically high 0.3-0.8 [facility] Comment on above: Performed By: #### C BC #### [facility] [address] [place] [address] Dr. Osmar Cox Monocytes/100 WBC (Bld) 8.9 % Normal 1.7-12.0 [facility] Comment on above: Performed By: #### C BC #### [facility] [address] [address] [address] Osmar Cox NEUT # 7.6 103/ul Critically high 1.4-6.5 [facility] Comment on above: Performed By: #### C BC #### [facility] [address] [address] [address] Osmar Cox Neutrophils/100 WBC (Bld) 66.6 % Normal 43.0-75.0 [facility] Comment on above: Performed By: #### C BC #### [facility] [address] [address] [address] Osmar Cox Platelet mean volume (Bld) [Entitic vol] 8.8 fL Critically low 9.5-13.5 [facility] Comment on above: Performed By: #### C BC #### [facility] [address] [address] [address] Osmar Cox PLT 438 103/ul Normal 150-450 [facility] Comment on above: Performed By: #### C BC #### [facility] [address] [address] [address] Osmar Cox RBC 5.13 106/ul Normal 4.20-5.40 [facility] Comment on above: Performed By: #### C BC #### [facility] [address] [address] [address] Osmar Cox WBC 11.3 103/ul Critically high 4.0-11.0 [facility] Comment on above: Performed By: #### C BC #### [facility] [address] [address] [address] Osmar Cox [facility]on SARS-CoV-2 (COVID-19) RNA ISABEL+probe Ql (Unsp spec) Not detected Normal NOT DETECTED [facility] Comment on above: Result Comment: This test is not yet approved or cleared by the [place] FDA. When there are no FDA-approved or cleared tests available, and other criteria are met, FDA can make tests available under an emergency access mechanism called an Emergency Use Authorization (EUA). The EUA for this test is supported by the [place] of Health and Human Service's (HHS's) declaration [...] consistent with SARS-CoV-2. Performed By: #### [facility] #### [facility] [address] [place] [address] CHEST HI RESOLUTIONon [...] Date: 2022-07-20 11:51 Normal [facility] BNPon 07-10-2022 Natriuretic peptide B (Bld) [Mass/Vol] 85.0 pg/mL Normal <=900.0 [facility] Comment on above: Performed By: #### B MARKETING ASSISTANT [employer]AIL DIVISION, BMP, LIVER, LIPID ####[facility] [address] [id number]. Osmar Cox LIPID PROFILEon 07-10-2022 CHOL-HDL RATIO NORM SEE BELOW Normal [facility] Comment on above: Result Comment: 3.3 - 4.4 LOW RISK 4.4 - 7.1 AVERAGE RISK 7.1 - 11.0 MODERATE RISK >11.0 HIGH RISK Performed By: #### B MARKETING ASSISTANT [employer]AIL DIVISION, BMP, LIVER, LIPID ####[facility] [address] [id number]. Osmar Cox Cholesterol [Mass/Vol] 229 mg/dL Critically high <=200 [facility] Comment on above: Performed By: #### B MARKETING ASSISTANT [employer]AIL DIVISION, BMP, LIVER, LIPID ####[facility] [address] [address]Dr. Osmar Cox Cholesterol in HDL [Mass/Vol] 51 mg/dL Normal 40-60 [facility] Comment on above: Performed By: #### B MARKETING ASSISTANT [employer] DIVISION, BMP, LIVER, LIPID ####[facility] [address] [address]Dr. Osmar Cox Cholesterol in LDL [Mass/Vol] 130.2 mg/dL Normal [facility] Comment on above: Performed By: #### B MARKETING ASSISTANT [employer] DIVISION, BMP, LIVER, LIPID ####[facility] [address] [id number]. Osmar Cox Cholesterol.total/ Cholesterol in HDL [Mass ratio] 4.5 {ratio} Normal [facility] Comment on above: Performed By: #### B MARKETING ASSISTANT [employer] DIVISION, BMP, LIVER, LIPID ####[facility] [address] [id number]. Osmar Cox HDL NORMAL > or = 60 mg/dl - LO W CARDIOVASCULAR RISK <40 mg/dl - HIGH CARDIOVASCULAR RISK Normal [facility] Comment on above: Performed By: #### B MARKETING ASSISTANT [employer] DIVISION, BMP, LIVER, LIPID ####[facility] [address] [id number]. Osmar Cox LDL CALC NORMAL SEE BELOW Normal [facility] Comment on above: Result Comment: <100 mg/dl OPTIMAL 100 - 129 mg/dl NEAR OR ABOVE OPTIMAL 130 - 159 mg/dl BORDERLINE HIGH 160 - 189 mg/dl HIGH >190 mg/dl VERY HIGH Performed By: #### B MARKETING ASSISTANT [employer], BMP, LIVER, LIPID ####[facility] [address] [address]Dr. Osmar Cox Triglyceride [Mass/Vol] 239 mg/dL Critically high <=150 [facility] Comment on above: Performed By: #### B MARKETING ASSISTANT [employer] DIVISION, BMP, LIVER, LIPID ####[facility] [address] [address]Dr. Osmar Cox VLDL CALC 47.8 mg/dL Normal [facility] Comment on above: Performed By: #### B MARKETING ASSISTANT [employer] DIVISION, BMP, LIVER, LIPID ####[facility] [address] [address]Dr. Osmar Kenny LIVER PROFILEon 07-10-2022 Albumin [Mass/Vol] 3.5 g/dL Normal 3.4-5.0 [facility] Comment on above: Performed By: #### B MARKETING ASSISTANT [employer] DIVISION, BMP, LIVER, LIPID ####[facility] [address] [address]Dr. Osmar Cox Albumin/Globulin [Mass ratio] 1.0 {ratio} Normal [facility] Comment on above: Performed By: #### B MARKETING ASSISTANT [employer] DIVISION, BMP, LIVER, LIPID ####[facility] [address] [address]Dr. Osmar Cox ALP [Catalytic activity/Vol] 183 U/L Critically high 46-116 [facility] Comment on above: Performed By: #### B MARKETING ASSISTANT [employer] DIVISION, BMP, LIVER, LIPID ####[facility] [address] [address]Dr. Osmar Cox ALT [Catalytic activity/Vol] 32 U/L Normal 14-59 [facility] Comment on above: Performed By: #### B MARKETING ASSISTANT [employer] DIVISION, BMP, LIVER, LIPID ####[facility] [address] [address]Dr. Osmar Cox AST [Catalytic activity/Vol] 17 U/L Normal 15-37 [facility] Comment on above: Performed By: #### B MARKETING ASSISTANT [employer]AIL DIVISION, BMP, LIVER, LIPID ####[facility] [address] [id number]. Osmar Cox BILI, CONJUGATED 0.1 mg/dL Normal 0.0-0.2 [facility] Comment on above: Performed By: #### B MARKETING ASSISTANT RETAIL DIVISION, BMP, LIVER, LIPID ####[facility] [address] [address]Dr. Osmar Cox Bilirubin [Mass/Vol] 0.2 mg/dL Normal 0.2-1.0 [facility] Comment on above: Performed By: #### B MARKETING ASSISTANT RETAIL DIVISION, BMP, LIVER, LIPID ####[facility] [address] [address]Dr. Osmar Cox Globulin (S) [Mass/Vol] 3.5 g/dL Normal [facility] Comment on above: Performed By: #### B MARKETING ASSISTANT RETAIL DIVISION, BMP, LIVER, LIPID ####[facility] [address] [address]Dr. Osmar Cox Protein [Mass/Vol] 7.0 g/dL Normal 6.4-8.2 [facility] Comment on above: Performed By: #### B MARKETING ASSISTANT [employer]AIL DIVISION, BMP, LIVER, LIPID ####[facility] [address] [address]Dr. Osmar Cox PROF CHEM 8 (BAS METB)on Anion gap [Moles/Vol] 11.6 mmol/L Normal [facility] Comment on above: Performed By: #### B MARKETING ASSISTANT [employer] DIVISION, BMP, LIVER, LIPID #### [facility] [address] [address] [address] Osmar Cox Calcium [Mass/Vol] 8.9 mg/dL Normal 8.5-10.1 [facility] Comment on above: Performed By: #### B MARKETING ASSISTANT [employer]AIL DIVISION, BMP, LIVER, LIPID #### [facility] [address] [address] [address] Osmar Cox Chloride [Moles/Vol] 104 mmol/L Normal 98-107 [facility] Comment on above: Performed By: #### B MARKETING ASSISTANT RETAIL DIVISION, BMP, LIVER, LIPID #### [facility] [address] [address] [address] Osmar Cox CO2 [Moles/Vol] 26.0 mmol/L Normal 21.0-32.0 [facility] Comment on above: Performed By: #### B MARKETING ASSISTANT RETAIL DIVISION, BMP, LIVER, LIPID #### [facility] [address] [address] [address] Osmar Cox Creatinine [Mass/Vol] 0.80 mg/dL Normal 0.55-1.02 [facility] Comment on above: Performed By: #### B MARKETING ASSISTANT RETAIL DIVISION, BMP, LIVER, LIPID #### [facility] [address] [address] [address] Osmar Cox EGFR-AF MAURITANIAN >60 Normal >=60 [facility] Comment on above: Performed By: #### B MARKETING ASSISTANT RETAIL DIVISION, BMP, LIVER, LIPID #### [facility] [address] [address] [address] Osmar Cox EGFR-NON AF MAURITANIAN >60 Normal >=60 [facility] Comment on above: Performed By: #### B MARKETING ASSISTANT RETAIL DIVISION, BMP, LIVER, LIPID #### [facility] [address] [address] [address] Osmar Cox Glucose [Mass/Vol] 100 mg/dL Normal 74-106 [facility] Comment on above: Performed By: #### B MARKETING ASSISTANT RETAIL DIVISION, BMP, LIVER, LIPID #### [facility] [address] [address] [address] Osmar Cox Potassium [Moles/Vol] 4.6 mmol/L Normal 3.5-5.1 [facility] Comment on above: Performed By: #### B MARKETING ASSISTANT RETAIL DIVISION, BMP, LIVER, LIPID #### [facility] [address] [address] [address] Osmar Cox Sodium [Moles/Vol] 137 mmol/L Normal 136-145 [facility] Comment on above: Performed By: #### B MARKETING ASSISTANT RETAIL DIVISION, BMP, LIVER, LIPID #### [facility] [address] [address] [address] Osmar Cox Urea nitrogen [Mass/Vol] 20.0 mg/dL Critically high 7.0-18.0 [facility] Comment on above: Performed By: #### B MARKETING ASSISTANT RETAIL DIVISION, BMP, LIVER, LIPID #### [facility] [address] [address] [address] Osmar Cox Urea nitrogen/Creatinin e [Mass ratio] 25.0 mg/mg Normal [facility] Comment on above: Performed By: #### B MARKETING ASSISTANT RETAIL DIVISION, BMP, LIVER, LIPID #### [facility] [address] [address] [address] Osmar Cox XR CHEST 2 Von [...] by: CONSUELO TELLES Date: 2022-06-04 19:26 Normal [facility] HEMOGLOBINon 06-02-2022 Hemoglobin (Bld) [Mass/Vol] 12.1 g/dL Normal 12.0-16.0 [facility] Comment on above: Performed By: #### H GB #### [facility] [address] [address] [address] Osmar Cox XR CHEST 2 Von [...] Date: 2022-06-02 19:19 Normal [facility] NM STRESS/REST MULTIon 05-06 NM STRESS/REST MULTI Patient: EBONY MEDLEY Exam Date: 05/06/2022 : 1960 Gender:F Ordering : DR NOLA RAMIREZ . Admission #: [id number] Family : Order #: [id number] CLICK HERE TO VIEW EXAM RADIOLOGY REPORT [...] Kirk M.D. on 05/07/2022 at 11:04 Normal [facility] ECHOCARDIO M/2D COMPLETEon 0 04-29-2022 ECHOCARDIO M/2D COMPLETE Patient: EBONY MEDLEY. Exam Date: 04/29/2022 : 1960 Gender:F Ordering : DR NOLA RAMIREZ . Admission #: [id number] Family : Order #: [id number] CLICK HERE TO VIEW EXAM ECHOCARDIOGRAM REPORT [...] Arnett M.D. on 04/30/2022 at 20:09 Normal [facility] 03-20-2022 [place] (Eskalith(R)), Serum 0.6 mmol/L Normal 0.5-1.2 [facility] Comment on above: Result Comment: Plas ma concentration of 0.5 - 0.8 mmol/L are advised for long-term use; concentrations of up to 1.2 mmol/L may be necessary during acute treatment. Detection Limit = 0.1 <0.1 indicates None Detected Performed By: #### L ITHIUM ####[facility] [address] [id number]. Lindakenyon Cox LIPID PROFILEon 03-19-2022 CHOL-HDL RATIO NORM SEE BELOW Normal [facility] Comment on above: Result Comment: 3.3 - 4.4 LOW RISK 4.4 - 7.1 AVERAGE RISK 7.1 - 11.0 MODERATE RISK >11.0 HIGH RISK Performed By: #### T SH, T4, LIPID, CMP ####[facility] [address] [address]Dr. Osmar Cox Cholesterol [Mass/Vol] 269 mg/dL Critically high <=200 [facility] Comment on above: Performed By: #### T SH, T4, LIPID, CMP ####[facility] [address] [place], [place] [address]Dr. Osmar Cox Cholesterol in HDL [Mass/Vol] 48 mg/dL Normal 40-60 [facility] Comment on above: Performed By: #### T SH, T4, LIPID, CMP ####[facility] [address] [id number]. Osmar Cox Cholesterol in LDL [Mass/Vol] 145.8 mg/dL Normal [facility] Comment on above: Performed By: #### T SH, T4, LIPID, CMP ####[facility] [address] [id number]. Lindakenyon Cox Cholesterol.total/ Cholesterol in HDL [Mass ratio] 5.6 {ratio} Normal [facility] Comment on above: Performed By: #### T SH, T4, LIPID, CMP ####[facility] [address] [address]Dr. Osmar Cox HDL NORMAL > or = 60 mg/dl - LO W CARDIOVASCULAR RISK <40 mg/dl - HIGH CARDIOVASCULAR RISK Normal [facility] Comment on above: Performed By: #### T SH, T4, LIPID, CMP ####[facility] [address] [address]Dr. Osmar Cox LDL CALC NORMAL SEE BELOW Normal [facility] Comment on above: Result Comment: <100 mg/dl OPTIMAL 100 - 129 mg/dl NEAR OR ABOVE OPTIMAL 130 - 159 mg/dl BORDERLINE HIGH 160 - 189 mg/dl HIGH >190 mg/dl VERY HIGH Performed By: #### T SH, T4, LIPID, CMP ####[facility] [address] [address]Dr. Osmar Cox Triglyceride [Mass/Vol] 376 mg/dL Critically high <=150 [facility] Comment on above: Performed By: #### T SH, T4, LIPID, CMP ####[facility] [address] [address]Dr. Osmar Cox VLDL CALC 75.2 mg/dL Normal [facility] Comment on above: Performed By: #### T SH, T4, LIPID, CMP ####[facility] [address] [address]Dr. Osmar Cox PROF 14(COMP METB)on 022 Albumin [Mass/Vol] 3.4 g/dL Normal 3.4-5.0 [facility] Comment on above: Performed By: #### T SH, T4, LIPID, CMP ####[facility] [address] [address]Dr. Osmar Cox Albumin/Globulin [Mass ratio] 1.0 {ratio} Normal [facility] Comment on above: Performed By: #### T SH, T4, LIPID, CMP ####[facility] [address] [address]Dr. Osmar Cox ALP [Catalytic activity/Vol] 118 U/L Critically high 46-116 [facility] Comment on above: Performed By: #### T SH, T4, LIPID, CMP ####[facility] [address] [address]Dr. Osmar Cox ALT [Catalytic activity/Vol] 17 U/L Normal 14-59 [facility] Comment on above: Performed By: #### T SH, T4, LIPID, CMP ####[facility] [address] [address]Dr. Osmar Cox Anion gap [Moles/Vol] 11.3 mmol/L Normal [facility] Comment on above: Performed By: #### T SH, T4, LIPID, CMP ####[facility] [address] [address]Dr. Osmar Cox AST [Catalytic activity/Vol] 11 U/L Critically low 15-37 [facility] Comment on above: Performed By: #### T SH, T4, LIPID, CMP ####[facility] [address] [place], [place] [address]Dr. Osmar Cox Bilirubin [Mass/Vol] 0.2 mg/dL Normal 0.2-1.0 [facility] Comment on above: Performed By: #### T SH, T4, LIPID, CMP ####[facility] [address] [place], [place] [address]Dr. Osmar Cox Calcium [Mass/Vol] 8.7 mg/dL Normal 8.5-10.1 [facility] Comment on above: Performed By: #### T SH, T4, LIPID, CMP ####[facility] [address] [place], [place] [address]Dr. Osmar Cox Chloride [Moles/Vol] 106 mmol/L Normal 98-107 [facility] Comment on above: Performed By: #### T SH, T4, LIPID, CMP ####[facility] [address] [place], [place] [address]Dr. Osmar Cox CO2 [Moles/Vol] 23.6 mmol/L Normal 21.0-32.0 [facility] Comment on above: Performed By: #### T SH, T4, LIPID, CMP ####[facility] [address] [place], [place] [address]Dr. Osmar Cox Creatinine [Mass/Vol] 0.86 mg/dL Normal 0.55-1.02 [facility] Comment on above: Performed By: #### T SH, T4, LIPID, CMP ####[facility] [address] [id number]. Osmar Cox EGFR-AF MAURITANIAN >=60 Normal >=60 [facility] Comment on above: Performed By: #### T SH, T4, LIPID, CMP ####[facility] [address] [id number]. Osmar Cox EGFR-NON AF MAURITANIAN >=60 Normal >=60 [facility] Comment on above: Performed By: #### T SH, T4, LIPID, CMP ####[facility] [address] [address]Dr. Osmar Cox Globulin (S) [Mass/Vol] 3.3 g/dL Normal [facility] Comment on above: Performed By: #### T SH, T4, LIPID, CMP ####[facility] [address] [address]Dr. Osmar Cox Glucose [Mass/Vol] 104 mg/dL Normal 74-106 [facility] Comment on above: Performed By: #### T SH, T4, LIPID, CMP ####[facility] [address] [address]Dr. Osmar Cox Potassium [Moles/Vol] 4.9 mmol/L Normal 3.5-5.1 [facility] Comment on above: Performed By: #### T SH, T4, LIPID, CMP ####[facility] [address] [address]Dr. Osmar Cox Protein [Mass/Vol] 6.7 g/dL Normal 6.1-8.2 [facility] Comment on above: Performed By: #### T SH, T4, LIPID, CMP ####[facility] [address] [place], [place] [address]Dr. Osmar Cox Sodium [Moles/Vol] 136 mmol/L Normal 136-145 [facility] Comment on above: Performed By: #### T SH, T4, LIPID, CMP ####[facility] [address] [address]Dr. Osmar Cox Urea nitrogen [Mass/Vol] 25.0 mg/dL Critically high 7.0-18.0 [facility] Comment on above: Performed By: #### T SH, T4, LIPID, CMP ####[facility] [address] [address]Dr. Osmar Cox Urea nitrogen/Creatinin e [Mass ratio] 29.1 mg/mg Normal [facility] Comment on above: Performed By: #### T SH, T4, LIPID, CMP ####[facility] [address] [id number]. Osmar Cox T4on 03-19-2022 T4 [Mass/Vol] 7.60 ug/dL Normal 4.80-13.90 [facility] Comment on above: Performed By: #### T SH, T4, LIPID, CMP ####[facility] [address] [id number]. Osmar Cox TSHon 03-19-2022 TSH 1.427 uIU/mL Normal 0.470-4.680 [facility] Comment on above: Performed By: #### T SH, T4, LIPID, CMP ####[facility] [address] [address]Dr. Osmar Cox TSH RANGE SEE BELOW Normal [facility] Comment on above: Result Comment: <0.3 4 UIU/ml HYPERTHYROID 0.34-5.60 UIU/ml EUTHYROID >5.60 UIU/ml HYPOTHYROID Performed By: #### T SH, T4, LIPID, CMP ####[facility] [address] [id number]. Osmar Cox Laboratory Studieson 018 Albumin [Mass/Vol] 3.8 g/dL 3.2-5.5 [facility] Albumin/Globulin [Mass ratio] 1.5 {ratio} [facility] ALP [Catalytic activity/Vol] 75 U/L 32 [facility] ALT No additional P-5'-P [Catalytic activity/Vol] 16 U/L 10-60 [facility] AST [Catalytic activity/Vol] 18 U/L 10 [facility] Basophils (Bld) [#/Vol] 0.1 10*3/uL 0.0-0.2 [facility] Basophils/100 WBC (Bld) 1.0 % [facility] Bilirubin [Mass/Vol] 0.5 mg/dL 0.3-1.2 [facility] Calcium [Mass/Vol] 9.2 mg/dL 8.2-10.2 [facility] Carbamazepine [Mass/Vol] < 2.0 ug/mL Low 4.0-12.0 [facility] Chloride [Moles/Vol] 103 mmol/L 95-114 [facility] CK [Catalytic activity/Vol] 46 U/L 22-269 [facility] CK.MB [Mass/Vol] 1.0 ng/mL 0.6-6.3 [facility] CK.MB Calc [Catalytic fraction] 2.1 0.00-2.50 [facility] CO2 [Moles/Vol] 24.9 mmol/L 22.0-30.0 [facility] Creatinine [Mass/Vol] 0.58 mg/dL 0.44-1.03 [facility] Eosinophils (Bld) [#/Vol] 0.2 10*3/uL 0.0-0.45 [facility] Eosinophils/100 WBC (Bld) 3.1 % [facility] Erythrocyte distribution width (RBC) [Ratio] 13.5 % 11.9-15.3 [facility] Ethanol [Mass/Vol] mg/dL [facility] Ethanol [Mass/Vol] TNP [facility] Comment on above: Test not performed GFR/1.73 sq M predicted among blacks MDRD (S/P/Bld) [Vol rate/Area] mL/min/{1.73_m2} [facility] Comment on above: GFR estimated refere nce range: According to KDOQI guidelines, <60 ml/min/1.73m2 is sufficient to diagnose a patient with chronic kidney disease. GFR/1.73 sq M predicted among non-blacks MDRD (S/P/Bld) [Vol rate/Area] mL/min/{1.73_m2} [facility] Globulin (S) [Mass/Vol] 2.6 g/dL [facility] Glucose [Mass/Vol] 96 mg/dL 70-100 [facility] Comment on above: ADA recommended refe rence range Random Glucose Reference Range is dependent on time and content of last meal. Glucose of more than 200 mg/dL in a nonstressed, ambulatory subject supports the diagnosis of Diabetes Mellitus. Hematocrit (Bld) [Volume fraction] 38.7 % 34.0-46.4 [facility] Hemoglobin (Bld) [Mass/Vol] 12.8 g/dL 11.8-15.4 [facility] Lymphocytes (Bld) [#/Vol] 2.1 10*3/uL 1.00-4.8 [facility] Lymphocytes/100 WBC (Bld) 33.0 % [facility] MCH (RBC) [Entitic mass] 28.3 pg 24.7-34.3 [facility] MCHC (RBC) [Mass/Vol] 33.1 g/dL 32.0-35.0 [facility] MCV (RBC) [Entitic vol] 85.4 fL 80-100 [facility] Monocytes (Bld) [#/Vol] 0.5 10*3/uL 0.0-0.8 [facility] Monocytes/100 WBC (Bld) 7.2 % [facility] Neutrophils (Bld) [#/Vol] 3.5 10*3/uL 1.8-7.7 [facility] Neutrophils/100 WBC (Bld) 55.7 % [facility]acy Creatinine Clearance (Chem 87.4588 [facility] Platelet mean volume (Bld) [Entitic vol] 6.9 fL 6.3-10.7 [facility] Platelets (Bld) [#/Vol] 270 10*3/uL 150-450 [facility] Potassium [Moles/Vol] 4.3 mmol/L 3.5-5.1 [facility] Protein [Mass/Vol] 6.4 g/dL 6.1-7.9 [facility] RBC (Bld) [#/Vol] 4.52 10*6/uL 3.60-5.00 [facility] Sodium [Moles/Vol] 136 mmol/L 136-146 [facility] Troponin I.cardiac [Mass/Vol] ng/mL 0-0.02 [facility] Comment on above: RIZWANA MS Cut off value > or equal to 0.03 ng/mL in conjunction with clinical conditions of myocardial infarction. ([email or web address].org/[email or web address]) Urea nitrogen [Mass/Vol] 18 mg/dL 9-23 [facility] Valproate [Mass/Vol] 52.6 ug/mL 50.0-100.0 [facility] Comment on above: Last dose: - WBC (Bld) [#/Vol] 6.3 10*3/uL 3.8-11.6 [facility] Amphetamines Ql (U) Negative [facility] Barbiturates Ql (U) Negative [facility] Benzodiazepines Ql (U) Negative [facility] Bilirubin Ql (U) Negative [facility] Cannabinoids Screen Ql (U) Negative [facility] Comment on above: These are unconfirme d results and should not be used for legal purposes. Drug Cut-Off Concentration: AMPH 1000 ng/mL ALFREDO 200 ng/mL JAXON 200 ng/mL COCM 300 ng/mL OP 300 ng/mL PCP 25 ng/mL THC 20 ng/mL Clarity Refractometry automated (U) Clear [facility] Cocaine Ql (U) Negative [facility] Color (U) Yellow [facility] Glucose Auto test strip (U) [Mass/Vol] Normal mg/dL [facility] Hemoglobin Auto test strip Ql (U) Negative [facility] Ketones (U) [Mass/Vol] Negative [facility] Leukocyte esterase Auto test strip Ql (U) Negative [facility] Nitrite Ql (U) Negative [facility] Opiates Ql (U) Negative [facility] pH (U) 6.5 [pH] 5.0-9.0 [facility] Phencyclidine Ql (U) Negative [facility] Protein (U) [Mass/Vol] Negative [facility] Specific gravity (U) [Rel density] 1.018 1.001-1.030 [facility] Urobilinogen (U) [Mass/Vol] Normal mg/dL [facility] Vital Signs Date Time Vital Sign Value Performing Clinician Facility 09-02-2022 13:44-0400 Blood Pressure Location Ganga PEARCE [facility] [place] 09-02-2022 13:44-0400 Diastolic blood pressure 82 mm[Hg] Ganga ZUNIGAL [facility] [place] 09-02-2022 13:44-0400 Heart rate 72 /min Ganga NILL [facility] [place] 09-02-2022 13:44-0400 Respiratory rate 16 /min Gagna NILL [facility] [place] 09-02-2022 13:44-0400 Systolic blood pressure 120 mm[Hg] Ganga ZUNIGAL [facility] [place] 03-07-2019 15:00-0400 Body Temperature 97.8 [degF] [facility] 03-07-2019 15:00-0400 BP Diastolic 88 mm[Hg] [facility] 03-07-2019 15:00-0400 BP Systolic 158 mm[Hg] [facility] 03-07-2019 15:00-0400 Pulse (Heart Rate) 78 /min [facility] 03-07-2019 15:00-0400 Pulse Oximetry 95 % [facility] 03-07-2019 15:00-0400 Respiratory Rate 16 /min [facility] Body weight [facility] NEGATED: Highlighted row BMI (Body Mass Index) [facility] NEGATED: Highlighted row Height [facility] Encounters Encounter Date Encounter Type Care Provider Facility Start: 07-02-2025 End: 07-02-[address] [facility] Start: 05-30-2025 ambulatory Dereck De La Rosa acility:[facility] Start: 04-19-2025 End: 04-19-2025 ambulatory Nola Ramirez MD Work Phone: [facility] Work Phone: Start: 04-19-2025 End: 04-19-2025 Departed Referred Nola Ramirez MD Work Phone: [facility] [place] [facility] Start: 02-26-2025 Registered Recurring Nola gray MD Work Phone: [facility] Start: 10-21-2022 End: 10-22-2022 ambulatory Ganga PEARCE Facility:[facility] Start: 10-21-2022 End: 10-21-2022 Patient encounter procedure Ganga PEARCE [facility] Start: 10-08-2022 Encounter for preprocedural laboratory examination DR GANGA PEARCE [facility] Start: 10-07-2022 End: 10-08-[address] GANGA PEARCE Facility:[facility] Start: 10-03-2022 End: 10-04-[address] GANGA PEARCE Facility:[facility] Start: 10-03-2022 End: 10-04-2022 Encounter for preprocedural laboratory examination DR GANGA PEARCE Facility:[facility] Start: 09-02-2022 End: 09-03-2022 ambulatory Ganga PEARCE Facility:[facility] Start: 09-02-2022 End: 09-02-2022 Patient encounter procedure Ganga PEARCE [facility] Start: 08-11-2022 End: 08-11-[address] NOLA RAMIREZ Facility:[facility] Start: 08-06-2022 End: 08-07-[address] Nicolas Kirk Facility:[facility] Start: 07-28-2022 End: 07-29-2022 ambulatory NOLA RAMIREZ Facility:[facility] Start: 07-24-2022 End: 07-25-[address] JESSIE [...] Start: 03-15-2019 End: 03-15-2019 Patient encounter procedure [facility] Start: 03-07-2019 End: 03-07-2019 Admission to day surgery [facility] Start: 02-01-2018 End: 02-01-2018 Emergency department patient visit [facility] Start: 06-07-2014 End: 06-12-2014 Evaluation and management of inpatient [facility] Start: 06-17-2011 End: 06-20-2011 Evaluation and management of inpatient [facility] Start: 05-01-2011 End: 05-18-2011 Evaluation and management of inpatient [facility] Start: 05-27-2010 End: 06-26-2010 Discharged Recurring [facility] Start: 05-22-2010 End: 06-21-2010 Discharged Recurring [facility] Start: 04-22-2010 End: 05-21-2010 Discharged Recurring [facility] Start: 03-22-2010 End: 04-21-2010 Discharged Recurring Nola Hoy [facility] Start: 02-20-2010 End: 03-21-2010 Discharged Recurring Nola Hoy [facility] Start: 01-20-2010 End: 02-19-2010 Discharged Recurring Nola ramses [facility] Start: 01-20-2010 End: 02-19-2010 Discharged Recurring Nola Hoy [facility] Start: 01-16-2010 End: 01-19-2010 Discharged Recurring Nola ramses [facility] Start: 12-23-2009 End: 01-19-2010 Discharged Recurring Nola ramses [facility] Start: 11-23-2009 End: 12-22-2009 Discharged Recurring Nola ramses [facility] Start: 11-22-2009 End: 01-20-2010 Discharged Recurring Nola ramses [facility] Start: 10-22-2009 End: 11-21-2009 Discharged Recurring Nola ramses [facility] Start: 10-15-2009 End: 11-22-2009 Discharged Recurring Nola ramses [facility] Start: 09-22-2009 End: 10-21-2009 Discharged Recurring Nola ramses [facility] Start: 08-22-2009 End: 09-21-2009 Discharged Recurring Nola ramses [facility] Start: 08-06-2009 End: 08-21-2009 Discharged Recurring Nola [facility] Start: 07-02-2009 End: 07-22-2009 Discharged Recurring Nola [facility] Start: 06-04-2009 End: 06-21-2009 Discharged Recurring Nola Hoy [facility] Start: 04-22-2009 End: 05-21-2009 Discharged Recurring Nola Hoy [facility] Start: 03-22-2009 End: 04-21-2009 Discharged Recurring Nola Hoy [facility] Start: 02-20-2009 End: 03-21-2009 Discharged Recurring Nola Hoy [facility] Start: 02-10-2009 End: 02-10-2009 Emergency department patient visit Nola [facility] Start: 01-21-2009 End: 02-19-2009 Discharged Recurring Nola Hoy [facility] Start: 12-24-2008 End: 01-19-2009 Discharged Recurring Nola Hoy [facility] Start: 11-23-2008 End: 12-22-2008 Discharged Recurring Nola Ramirez [facility] Start: 10-22-2008 End: 11-21-2008 Discharged Recurring Nola Hoy [facility] Start: 09-22-2008 End: 10-21-2008 Discharged Recurring Nola Hoy [facility] Start: 08-22-2008 End: 09-21-2008 Discharged Recurring Nola Hoy [facility] Start: 07-24-2008 End: 08-21-2008 Discharged Recurring Nola Hoy [facility] Start: 07-02-2008 End: 07-05-2008 Evaluation and management of inpatient Nola Hoy [facility] Start: 06-22-2008 End: 07-22-2008 Discharged Recurring Nola James [facility] Start: 06-05-2008 End: 06-14-2008 Evaluation and management of inpatient Nola James [facility] Start: 05-29-2008 End: 06-21-2008 Discharged Recurring Noal James [facility] Start: 04-24-2008 End: 05-21-2008 Discharged Recurring Nola James [facility] Start: 03-22-2008 End: 04-21-2008 Discharged Recurring Nola James [facility] Start: 02-21-2008 End: 03-21-2008 Discharged Recurring Nola ramses [facility] Start: 02-14-2008 End: 02-20-2008 Discharged Recurring Nola ramses [facility] Start: 12-23-2007 End: 01-20-2008 Discharged Recurring Nola James [facility] Start: 12-20-2007 End: 12-23-2007 Evaluation and management of inpatient Nola ramses [facility] Start: 11-22-2007 End: 12-22-2007 Discharged Recurring Nola ramses [facility] Start: 10-22-2007 End: 11-21-2007 Discharged Recurring Nola ramses [facility] Start: 09-22-2007 End: 10-21-2007 Discharged Recurring Nola ramses [facility] Start: 08-22-2007 End: 09-21-2007 Discharged Recurring Nola [facility] Start: 07-23-2007 End: 08-21-2007 Discharged Recurring Nola [facility] Start: 06-22-2007 End: 07-22-2007 Discharged Recurring Nola Hoy [facility] Start: 05-22-2007 End: 06-21-2007 Discharged Recurring Nola Hoy [facility] Start: 04-28-2007 End: 04-28-2007 Emergency department patient visit Nola Hoy [facility] Start: 04-28-2007 End: 04-28-2007 Patient encounter procedure Nola ramses [facility] Start: 04-28-2007 End: 05-21-2007 Discharged Recurring Nola Hoy [facility] Start: 03-01-2002 End: 03-21-2002 Discharged Recurring Nola ramses [facility] Start: 03-01-2002 End: 03-04-2002 Evaluation and management of inpatient Nola ramses [facility] Start: 03-24-2001 End: 03-24-2001 Discharged Recurring Nola ramses [facility] Start: 03-24-2001 End: 04-04-2001 Evaluation and management of inpatient Nola [facility] Start: 09-27-1996 End: 09-30-1996 Evaluation and management of inpatient Nola ramses [facility] Start: 08-19-1995 End: 08-19-1995 Emergency department patient visit Nola Ramirez [facility] Start: 09-27-1993 End: 09-27-1993 Patient encounter procedure Nola ramses [facility] Procedures Date Procedure Procedure Detail Performing Clinician Start: 10-07-2022 Esophagogastroduodenoscopy Ganga PEARCE Start: 07-28-2022 Cardiac catheterization Ganga PEARCE Start: 12-05-2020 Hernia repair Ganga ZUNIGAL Start: 03-07-2019 Arthroscopy of shoulder A Olexa Nolan Start: 11-22-1996 Abdominal hysterectomy Ganga NILL Arthroscopy of shoulder Palmer aeisrael NILL Cholecystectomy Ganga NILL Ectopic (disorder) Ganga NILL Exploratory laparotomy Yrn ferreira NILL History of subtotal thyroidectomy Ganga NILL History of tonsillectomy Mil roberson NILL Partial resection of colon Cali garcia NILL Plan of Treatment Date Care Activity Detail Author Start: 04-19-2025 Bacteria identified in Urine by Culture Urine Culture [facility] Start: 04-19-2025 Urine culture [facility] Payers Date Payer Category Payer Unknown [id number] 2023 Self-pay 1960 Medicaid [id number] 1960 Medicare [id number] Self-pay [id number] 1960 Unknown [id number] 2.16.8 [id number] 1959 Unknown [id number] 2.16.84 0.1.596253.3.579.2.593 1959 Unknown [id number] 2.16.84 0.1.783765.3.579.2.593 1959 Unknown [id number] 2.16.84 0.1.000039.3.579.2.593 1959 Unknown [id number] 2.16.84 0.1.908440.3.579.2.593 1959 Unknown [id number] 2.16.84 0.1.045836.3.579.2.593 1959 Unknown [id number] 2.16.84 0.1.580430.3.579.2.593 1959 Unknown [id number] 2.16.84 0.1.692183.3.579.2.593 1959 Unknown [id number] 2.16.84 0.1.110830.3.579.2.593 1959 Unknown [id number] 2.16.84 0.1.246870.3.579.2.593 1959 Unknown [id number] 2.16.84 0.1.193287.3.579.2.593 1959 Unknown [id number] 2.16.84 0.1.381710.3.579.2.593 1959 Unknown [id number] 2.16.84 0.1.013934.3.579.2.593 1959 Unknown [id number] 2.16.84 0.1.644707.3.579.2.593 1959 Unknown [id number] 2.16.84 0.1.770348.3.579.2.593 1959 Unknown [id number] 2.16.84 0.1.993671.3.579.2.593 1959 Unknown [id number] 2.16.8 40.1.052993.3.579.2.727 1959 Unknown [id number] 2.16.8 40.1.673816.3.579.2.727 1959 Unknown [id number] 2.16.8 40.1.724903.3.579.2.727 Medicare [id number] Unknown [id number] 2.16.8 40.1.602174.3.579.2.531 Unknown [id number] 2.16.8 40.1.407989.3.579.2.531 Social History Date Type Detail Facility Start: 03-27-2022 End: 09-02-2022 Tobacco smoking status Ex-smoker (finding) [facility] Tobacco smoking status Never [facility] [place] Sex Assigned At Female [facility] [place] Start: 04-20-2025 Sex Female (finding) [facility] Start: 1960 Sex Assigned At Female [facility] Medical Equipment Procedure Code Equipment Code Equipment Origin al Text Equipment Identifier Dates Shoulder arthroscopy ANCHOR 5.5 SWIVELOCK FDA Start: 03-07-2019 HERNIA REPAIR, ROBOT ASSISTED Ganga PEARCE MD 12/05/20 Non Biological Abdomen {[id number] [id number] FDA Start: 12-05-2020 Functional Status Date Assessment Result Facility 09-02-2022 Functional Status N/A General Jeo ery [place] Progress note 07-02-2025 Note Date & Type Note Facility 07-02-2025 Note [facility] Subjective Ebony Medley is a 65 y.o. year old female patient being seen for 1 year follow up.Patient states she feels great, patient has no cardiac complaints at this time. Patient Active Problem List Diagnosis Dyspnea on exertion Mixed hyperlipidemia Abnormal barium swallow Bladder incontinence Dysphagia, oropharyngeal Esophagitis on biopsy HTN (hypertension) Incisional hernia BMI 35.0-35.9,adult Obstructive sleep apnea syndrome Rectal prolapse Restless legs syndrome Bipolar I disorder, most recent episode depressed (CMS/HCC) Chronic schizophrenia with acute exacerbation (CMS/HCC) Nausea Suicidal ideation Family History Problem Relation Name Age of Onset Hypertension Mother Diabetes Mother Hypertension Father Social History Tobacco Use Smoking status: Former Types: Cigarettes Smokeless tobacco: Never Substance Use Topics Alcohol use: Not Currently Drug use: Never HPI Ebony is seen in follow-up. She [...] of the ankle. No chest pain. No palpitations. No dizziness or lightheadedness. She has been taking her medications except for aspirin 81 mg daily. Visit of 07/02/2025: She is seen in follow-up. She reports that she has been doing very well since last visit. She denies tyrese (more content not included)... [facility] Clinical Note 10-07-2022 Note Date & [...] CC: Nola Ramirez M.D. [facility] Clinical Note 09-02-2022 Note Date & Type Note Facility 09-02-2022 Note Chief Complaint consultation for abnormal barium swallow [facility] Staff 62 year old female presents on [...] Hi (more content not included)... [facility] Comment on above: Result Comment: Elec tronically Signed By: CAIT LEHMAN, Ganga Valencia\Date and Time Signed: 09/02/22 15:31 EDT Evaluation + Plan note Note Date & Type Note Facility Evaluation + Plan note No data available for this section [facility] [place] Evaluation note Note Date & Type Note Facility Evaluation note No assessment information availa [facility] Work Phone: Hospital Discharge instructions Note Date & Type Note Facility Hospital Discharge instructions No data available for this section [facility] [place] Progress note Note Date & Type Note Facility Progress note No data available for this section [facility] Summary Purpose Family History No Family History Records FoundNo Family History Records FoundNo Family History Records FoundNo Family History Records FoundNo Family History Records Found Advance Directives No Advanced Directives Records Found Advance Directive Response Recorded Date/ Time Advance Directives Yes February 01 018 1:31pm Additional Source Comments INFORMATION SOURCE (unrecogn ized section and content) DATE CREATED AUTHOR 07/31/2022 [facility] DATE CREATED AUTHOR AUTHOR'S ORGANIZ ATION [facility]2022 [facility] DATE CREATED AUTHOR AUTHOR'S ORGANIZ ATION 10/22/2022 [facility] DATE CREATED AUTHOR AUTHOR'S ORGANIZ ATION 06/03/2025 [facility] DATE CREATED AUTHOR AUTHOR'S ORGANIZ ATION 07/03/2025 [facility] Patient Care team informatio n (unrecognized section and content) Team Status: Active Member Role Status Dates Nola Ramirez MD Primary Care Provider Active Start: February 26, 2025 Dereck Walker MD Attending Provider Active Start: February 26, 2025 Team Status: Inactive Member Role Status Dates Nola Ramirez MD Attending Provider Active Sta rt: April 19, 2025 End: April 19, 2025 Goals (unrecognized section and content) Goals may be documented in a n alternate section FOR RECORDS PERTAINING TO PATIENTS WHO ARE [...] BE BASED ON THE PRIMARY CLINICAL RECORDS. [facility] [facility]. provides no warranty or guarantee of the accuracy or completeness of information in this document.
[2025-08-03 10:43] LABS: Hematocrit 45.4 % (36.0-48.0); Hemoglobin 14.7 g/dL (12.0-16.0); Immature Granulocytes Abs Auto 0.07 10^3/uL (0.00-0.03); Immature Granulocytes Pct Auto 0.5 % (0.0-0.5); Lymphocytes Absolute Auto 2.8 10^3/uL (1.2-3.8); Mean Corpuscular HGB Conc 32.4 g/dL (29.9-35.2); Mean Corpuscular Hemoglobin 27.0 pg (26.7-34.0); Mean Corpuscular Volume 83.5 fL (81.0-99.0); Platelet Count 342 10^3/uL (150-450); Red Blood Count 5.44 10^6/uL (4.20-5.40); White Blood Count 14.1 10^3/uL (4.0-11.0)
[2025-08-03 10:48] LABS: Alanine Aminotransferase 27 U/L (14-59); Albumin Globulin Ratio 0.9; Albumin Level 3.5 g/dL (3.4-5.0); Alkaline Phosphatase 205 U/L (46-116); Anion Gap 10.9; Aspartate Amino Transferase 15 U/L (15-37); Blood Urea Nitrogen 9.0 mg/dL (7.0-18.0); Calcium 9.3 mg/dL (8.5-10.1); Carbon Dioxide 26.1 mmol/L (21.0-32.0); Chloride 106 mmol/L (98-107); Cholesterol 175 mg/dL (<=200); Estimated GFR (African America >60 (>=60 mL/min/1.73m^2); Estimated GFR (Non-African Ame >60 (>=60 mL/min/1.73m^2); Free T3 2.66 pg/mL (2.18-3.98); Globulin 4.0 g/dL; Glucose 108 mg/dL (74-106); HDL Cholesterol 46 mg/dL (40-60); Potassium 4.0 mmol/L (3.5-5.1); Sodium 139 mmol/L (136-145); Thyroid Stimulating Hormone 1.605 uIU/mL (0.358-3.740); Total Protein 7.5 g/dL (6.4-8.2); Triglycerides 264 mg/dL (<=150); VLDL CHOLESTEROL 52.8 mg/dL
== END 2025-08-03 09:52 | disposition home or self-care (01) ==
LOC: LAB 09:51
PROVIDERS: PCP Family Medicine; Visit Provider Family Medicine
DX: R09.81 Nasal congestion (principal); R19.7 Diarrhea, unspecified; J21.9 Acute bronchiolitis, unspecified; R25.1 Tremor, unspecified; K21.9 Gastro-esophageal reflux disease without esophagitis; K22.2 Esophageal obstruction; E78.5 Hyperlipidemia, unspecified; R73.09 Other abnormal glucose; R53.83 Other fatigue
CPT/HCPCS: 36415; 80053; 80061; 83036; 83525; 84436; 84443; 84481; 85025

== ENCOUNTER 2025-09-19 05:34 | Observation (INO) | payer MEDICARE, SELFPAY ==
--- OUTSIDE RECORDS SUMMARY | 2025-01-02 11:00 | XMS_ITS ---
Author Organization [facility] in [place] Address [address] [place] [address] Care Team Providers Care Assistant Professor Surgical Technology Name Role Phone Curtis Ramirez Primary Care Provider REASON FOR VISIT Medicare [employer] Encounters Encounter Location Date Provider Diagnosis [facility] [address] [facility] [address] [facility] [place] [address] 01/02/2025 Curtis Ramirez Plan Of Treatment No Information Progress Notes * Ebony MEDLEYDOB:[birth year] (65 yo F)Acc No.[id number]:01/02/2025 UNLOCKED PROGRESS NOTE Progress Note Patient: Ebony OSMAN :?Thanh Ramirez (TTC), MDDOB:1960???Age: 64 Y???Sex:FemaleDate:01/02/2025Phone:[phone]:[address] [place] [address] Subjective: * Chief Complaints: * 1 . Medicare [employer]. * Medical History: Objective: * Vitals: Assessment: Plan: * Treatment: * * Electronic signature of Curtis Ramirez MD, [id number] on 09/19/2025 at 05:54 AM EDT Sign off status: PendingVisit Status:?CANC (Cancelled) * Provider: Arash Ramirez MD (TTC) Date: 0 01/02/2025 Generated for Printing/Faxing/eTransmitting on:?09/19/2025 05:54 AM EDT
[2025-09-19] VITALS (55 sets, daily range): BP systolic 86–153; BP diastolic 46–83; PULSE 44–61; TEMP 36.6–36.8; O2SAT 92–99; BMI 31.0
--- NOTE | 2025-09-19 05:43 | ECG_ITS ---
[facility] Test Date: 2025-09-19 Pat Name: NAZARIO MEDLEY Department: Room: - Gender: Female Neurodiagnostic Tech: : 1960 Requested By: [id number] Order Number: [id number] Reading MD: ANTON OSORIO Measurements Intervals Nimitz Rate: 41 P: 39 RI: 182 QRS: 62 QRSD: 94 T: 26 QT: 412 QTc: 349 Interpretive Statements 1130 Sinus bradycardia 8305 Short QTc interval 9150 abnormal ECG Compared to ECG 03/01/2019 11:19:24 No significant changes Electronically Signed On 09-19-2025 8:24:54 EDT by ANTON OSORIO
--- OUTSIDE RECORDS SUMMARY | 2025-09-19 05:52 | XMS_ITS | CCD ---
Author Organization [facility] Care Team Providers Care Laborer Pipelines Name Role Phone Nola Ramirez Primary Care [...] Consulting Unavailable MOUKARBEL, DR ROMAN Consulting Unavailable YUDITHY, DR VACA Primary Care Unavailable MOUKARBEL, DR [...] Attending Unavailable HOY, DR VACA Admitting Unavailable Ganga PEARCE Attending Unavailable NILAn, Ganga Salgado Attending Unavailable NILLGanga Attending Unavailable Nola Ramirez MD Primary Care Provider [phone] Dereck Walker MD Attending Provider [phone] Nola Ramirez MD Attending Provider JESSIE ARNETT Attending Unavailable Nola Ramirez MD Primary Care Provider [phone] Dereck Walker MD Attending Provider [phone] Ly DO Candi L Attending Provider [phone] Ly DO Candi L Other Provider Nola Ramirez Primary Care Unavailable Ly, Candi L Admitting Unavailable Ifeoma Candi L Attending Unavailable Nola Ramirez Admitting Unavailable Nola Ramirez Attending Unavailable Nola Ramirez Primary Care Unavailable Dereck Walker Admitting Unavailab le Dereck Walker Attending Unavailab le Allergies Allergy ClassificationReported Allergen(s)Allergy TypeDate of OnsetReaction(s) Facility (1 source)27254,00Drug allergy (disorder)[phone] [facility] Repository (1 source)oxyCODONE; Translations: [OxyCODONE Hydrochloride]Drug AllergyFisher [facility] ([facility] source)No Known Medication Allergies; Translations: [No Known Medication Allergies]Propensity to adverse reactions (disorder)[facility] Rep[facility] Medications Current Medications MedicationDrug Class(es)DatesSig (Normalized)Sig (Original)aspirin 81 mg delayed release oral tablet (2 sources)Platelet Aggregation Inhibitor, Nonsteroidal Anti-inflammatory Drug Start: 83-95-3006lejb 1 tablet by mouth once dailyaspirin 81 mg Oral EC Tab 81 mg = 1 tab(s), Oral, Daily, Refills(s) 0 Start Date: 08/26/22 Status: Ordered atorvastatin 40 mg oral tablet (2 sources)HMG-CoA Reductase InhibitorStart: 86-34-9364mrdljutacaxd 40 mg Tab Refills(s) 0 Start Date: 08/26/22 Status: OrderedbuPROPion (18 sources)AminoketoneStart: 32-64-3829vbIBGKhsh 150 mg ER Tab Refills(s) 0 Start Date: 08/26/22 Status: OrderedStart: 71-89-9966fhpd 1 tablet by mouth once dailyBupropion Hcl 150 mg Tablet Extended Release 24 Hr Active 150 MG PO Daily March 31, 2022 12:00am Complies with drug therapyStart: 03-27-2022 End: 70-18-2329Akmayggio Hcl 300 mg tablet extended release 24 hr Discontinued 450 MG PO Daily March 27, 2022 8:27am March 31, 2022 11:44amStart: 06-13-2019 End: 30-20-8925ajhn 1 tablet by mouth once dailyBupropion Hcl 300 mg Tablet Extended Release 24 Hr Discontinued 300 MG PO Daily June 13, 2019 12:00am March 27, 2022 8:27amStart: 06-01-2019 End: 51-62-7708hztv 1 tablet by mouth once dailyBupropion Hcl (Wellbutrin Xl) 150 mg tablet extended release 24 hr Discontinued 150 MG PO Daily June 01, 2019 12:00am June 13, 2019 12:29pmStart: 02-27-2019 End: 05-02-5384ivbi 1 tablet by mouth once dailyBupropion Hcl (Wellbutrin Sr) 150 mg Tablet Sustained-Release 12 Hr Discontinued 1 TAB PO Daily February 27, 2019 12:00am March 07, 2019 11:10ambusPIRone hydrochloride 15 mg oral tablet (8 sources)Start: 31-79-6846azkv 1 tablet by mouth once dailybusPIRone 15 mg Tab 15 mg = 1 tab(s), Oral, Daily, Refills(s) 0 Start Date: 08/26/22 Status: Ordered Start: 96-74-5435rtru 1 tablet by mouth three times dailyBuspirone 15 mg Tablet Active 15 MG PO Three times daily 45 15 March 31, 2022 12:00am Complies withdrug therapyStart: 08-15-2018 End: 82-72-6365dyic 20 mg by mouth three times dailyBuspirone 20 MG Oral Three times daily 180 August 15, 2018 DiscontinuedStart: 08-15-2018 End: 94-46-1158hebp 2 tablets by mouth three times dailyBuspirone 10 mg Tablet Discontinued 20 MG PO Three times daily 180 August 15, 2018 12:00am June 01, 2019 4:14pmcariprazine 6 mg oral capsule (14 sources)Atypical AntipsychoticStart: 79-63-6298gksg 1 capsule by mouth once dailyVraylar 6 mg oral capsule 6 mg = 1 cap(s), Oral, Daily, Other (see comment) Start Date: 11/29/20 Status: OrderedStart: 84-93-6616mvni 1 capsule by mouth once dailyCariprazine (Vraylar) 4.5 mg Capsule Active 6 MG PO Daily June 01, 2019 12:00am Complies with drug therapyStart: 03-07-2019 End: 25-81-7034Yitzjznfjbq (Vraylar) 1.5 mg Capsule Discontinued 1.5 MG PO As Directed March 07, 2019 12:00am June 01, 2019 4:14pmStart: 08-01-2018 End: 84-78-3295hidb 1 capsule by mouth once dailyCariprazine (Vraylar) 6 mg capsule Discontinued 6 MG PO Daily August 01, 2018 12:00am February 27, 2019 10:46amhydrOXYzine pamoate 50 mg oral capsule (18 sources)AntihistamineStart: 85-54-5009ukkc 1 capsule by mouth every six hours as needed for anxietyHydroxyzine Pamoate 50 mg Capsule Active 50 MG PO Q6H as needed for Anxiety 30 15 March 31, 2022 12:00am Complies with drug therapy Start: 06-13-2019 End: 92-56-5308piqq 1 capsule by mouth twice daily at mealtimeHydroxyzine Pamoate 50 mg Capsule Discontinued 50 MG PO Twice daily with meals June 13, 2019 12:00am March 27, 2022 8:28amStart: 06-01-2019 End: 86-09-8641uozd 1 tablet by mouth twice daily as needed for anxiety Hydroxyzine Hcl 50 mg tablet Discontinued 50 MG PO Twice daily as needed for Anxiety June 01, 2019 12:00am June 13, 2019 12:29pmStart: 08-15-2018 End: 60-06-1494kxyw 1 tablet by mouth twice daily as needed for painHydroxyzine Pamoate (Vistaril) 50 mg Capsule Discontinued 1 TAB PO Twice daily as needed for Pain February 27, 2019 12:00am June 01, 2019 4:14pmlithium carbonate 300 mg oral tablet (20 sources)Start: 66-11-3240dtryyve 300 mg Cap Refills(s) 0 Start Date: 08/26/22 Status: OrderedStart: 56-47-9198hhui 600 mg by mouth at bedtimeLithium Carbonate 600 MG Oral Bedtime June 13, 2019 ActiveStart: 06-13-2019 End: 65-83-1500uqup 1 tablet by mouth once daily in the morningLithium Carbonate 300 mg Tablet Active 300 MG PO Every morning August 03, 2025 12:00am Complies with drug therapyStart: 42-73-9500etau 2 tablets by mouth at bedtime [place] Carbonate 300 mg Tablet Active 600 MG PO Bedtime June 13, 2019 12:00am Complies with drug therapyStart: 06-01-2019 End: 66-73-5520igfm 1 capsule by mouth at bedtimeLithium Carbonate 300 mg capsule Discontinued 300 MG PO Bedtime June 01, 2019 12:00am June 13, 2019 12:29pmStart: 08-15-2018 End: 52-93-4133htub 150 mg by mouth at bedtimeLithium Carbonate 150 MG Oral Bedtime February 27, 2019 June 01, 2019 DiscontinuedStart: 08-15-2018 End: 84-14-3005Ypybwgb Carbonate 300 mg tablet Discontinued 150 MG PO Bedtime February 27, 2019 10:44am June 01, 2019 4:14pmmetoprolol tartrate 25 mg oral tablet (2 sources)beta-Adrenergic BlockerStart: 34-93-7225dcil 1 tablet by mouth once dailyMetoprolol tartrate 25 mg Tab 25 mg = 1 tab(s), Oral, Daily, Refills(s) 0 Start Date: 09/02/22 Status: Orderedmirtazapine 15 mg oral tablet (12 sources)Start: 12-03-1985znxr 1 tablet by mouth once daily at bedtime Mirtazapine 15 mg Tablet Active 15 MG PO Daily at bedtime March 31, 2022 12:00am Complies with drug therapyStart: 08-02-2018 End: 74-07-6109htih 15 mg by mouth at bedtime as needed for sleepMirtazapine 15 MG Oral Bedtime PRN For Sleep August 02, 2018 August 02, 2018 Discontinued Start: 08-02-2018 End: 74-24-9215lbzx 15 mg by mouth at bedtime as needed for sleepMirtazapine 15 MG Oral Bedtime PRN For Sleep August 02, 2018 DiscontinuedStart: 02-01-2018 End: 78-30-5506awzx 1 tablet by mouth at bedtime as needed for sleepMirtazapine 15 mg tablet Discontinued 15 MG PO Bedtime as needed for Sleep August 02, 2018 12:00am August 02, 2018 10:47amOLANZapine 5 mg oral tablet (4 sources)Atypical AntipsychoticStart: 42-22-8254ixip 1 tablet by mouth every six hours as neededOlanzapine 5 mg Tablet Active 5 MG PO Q6H as needed for Agitation 30 March 31, 2022 12:00am Complies with drug therapyondansetron 4 mg disintegrating oral tablet (6 sources)Serotonin-3 Receptor AntagonistStart: 17-02-2491uglx 1 tablet by mouth twice daily as needed for nauseaOndansetron 4 mg Tablet,Disintegrating Active 4 MG PO Twice daily as needed for Nausea March 27, 2022 12:00am Complies with drug therapyStart: 02-01-2018 End: 44-40-9812xvik 1 tablet by mouth every six hours as needed for nausea Ondansetron Hcl 4 mg tablet Discontinued 4 MG PO Q6H as needed for Nausea February 01, 2018 12:00am February 27, 2019 10:46ampantoprazole 40 mg delayed release oral tablet (1 source)Proton Pump InhibitorStart: 44-47-7770hfbv 1 tablet by mouth once dailyPantoprazole [address] Tab 40 mg = 1 tab(s), Oral, Daily, Refills(s) 0 Start Date: 10/21/22 Status: Orderedspironolactone 25 mg oral tablet (2 sources)Aldosterone AntagonistStart: 49-07-1667mkqi 1 tablet by mouth once dailyspironolactone 25 mg Tab 25 mg = 1 tab(s), Oral, Daily, Refills(s) 0 Start Date: 08/26/22 Status: OrderedtiZANidine 4 mg oral tablet (16 sources)Central alpha-2 Adrenergic AgonistStart: 25-57-6766vnez 2 tablets by mouth at bedtimeTizanidine 4 mg tablet Active 8 MG PO Bedtime March 27, 2022 8:27am Complies with drug therapyStart: 46-85-1525aatb 6 mg by mouth at bedtime Tizanidine 6 MG Oral Bedtime June 13, 2019 ActiveStart: 06-13-2019 End: 93-75-4299hyqe 6 mg by mouth at bedtimeTizanidine 4 mg Tablet Discontinued 6 MG PO Bedtime June 13, 2019 12:00am March 27, 2022 8:27amStart: 06-01-2019 End: 82-89-4003sqsl 8 mg by mouth at bedtimeTizanidine 8 MG Oral Bedtime June 01, 2019 DiscontinuedStart: 06-01-2019 End: 38-11-6220Bkapqkthea (Zanaflex) 4 mg tablet Discontinued 8 MG PO Bedtime June 01, 2019 12:00am June 13, 2019 12:29pmStart: 02-01-2018 End: 24-46-6827wmut 8 mg by mouth at bedtimeTizanidine 8 MG Oral Bedtime February 01, 2018 DiscontinuedStart: 02-01-2018 End: 60-74-1592uaot 2 capsules by mouth at bedtimeTizanidine 4 mg capsule Discontinued 8 MG PO Bedtime February 01, 2018 12:00am June 01, 2019 4:14pm Completed/Discontinued Medications MedicationDrug Class(es)DatesSig (Normalized)Sig (Original)carBAMazepine 200 mg oral tablet (4 sources)Mood StabilizerStart: 02-01-2018 End: 79-42-4809ioyw 100 mg by mouth three times dailyCarbamazepine 100 MG Oral Three times daily February 01, 2018 DiscontinuedStart: 02-01-2018 End: 50-60-0033ccsc 1 tablet by mouth three times dailyCarbamazepine (Tegretol) 200 mg Tablet Discontinued 100 MG PO Three times daily February 01, 2018 12:00am August 01, 2018 2:52pmcholecalciferol 1000 unt oral tablet (4 sources)Vitamin DStart: 41-85-9626izer 3000 [IU] by mouth once daily Cholecalciferol (Vitamin D3) 3000 UNIT Oral Daily June 13, 2019 ActiveStart: 06-13-2019 End: 75-08-9097urim 3 tablets by mouth once dailyCholecalciferol (Vitamin D3) (Vitamin D3) 1,000 unit Tablet Discontinued 3000 UNIT PO Daily 2018 12:00am March 27, 2022 8:28amclonazePAM 0.5 mg oral tablet (4 sources)BenzodiazepineStart: 08-01-2018 End: 93-63-1579peet 1 tablet by mouth four times dailyClonazepam 0.5 mg tablet Discontinued 0.5 MG PO Four times daily August 01, 2018 12:00am August 15, 2018 11:22am24 hr desvenlafaxine succinate 50 mg extended release oral tablet (8 sources)Serotonin and Norepinephrine Reuptake InhibitorStart: 08-15-2018 End: 26-83-9447Hdjhaukjxfodts Succinate (Pristiq) 50 mg Tablet Extended Release 24 Hr Discontinued 100 MG PO Daily60 August 15, 2018 12:00am June 01, 2019 4:14pmStart: 02-01-2018 End: 90-45-0727fpod 1 tablet by mouth once dailyDesvenlafaxine Succinate 100 mg tablet extended release 24 hr Discontinued 100 MG PO Daily February 01, 2018 12:00am August 02, 2018 10:47amesomeprazole 20 mg delayed release oral capsule (8 sources)Proton Pump InhibitorStart: 02-27-2019 End: 40-55-6234vxxw 1 tablet by mouth once dailyEsomeprazole Magnesium (Nexium) 20 mg Capsule,Delayed Release(Dr/Ec) Discontinued 1 TAB PO Daily February 27, 2019 12:00am June 01, 2019 4:14pmStart: 02-01-2018 End: 55-58-6993laek 1 capsule by mouth twice dailyEsomeprazole Magnesium (Nexium) 40 mg Capsule,Delayed Release(Dr/Ec) Discontinued 40 MG PO Twice daily February 01, 2018 12:00am August 15, 2018 11:22amfenofibrate 145 mg oral tablet (8 sources)Peroxisome Proliferator Receptor alpha AgonistStart: 02-27-2019 End: 70-70-4592nqer 1 tablet by mouth once dailyFenofibrate Nanocrystallized (Tricor) 145 mg Tablet Discontinued 1 TAB PO Daily February 27, 2019 12:00am June 01, 2019 4:14pmStart: 02-01-2018 End: 72-00-6123ilyd 1 tablet by mouth once dailyFenofibrate Nanocrystallized (Tricor) 145 mg Tablet Discontinued 145 MG PO Daily February 01, 2018 12:00am August 02, 2018 10:47amibuprofen 200 mg oral tablet (4 sources)Nonsteroidal Anti-inflammatory DrugStart: 02-01-2018 End: 45-20-9331lgoj 800 mg by mouth every six hours as needed for painIbuprofen [Motrin Ib] 800 MG Oral Q6H PRN For Pain February 01, 2018 August 01, 2018 DiscontinuedStart: 02-01-2018 End: 90-97-4540Qouqirwtx (Motrin Ib) 200 mg Tablet Discontinued 800 MG PO Q6H as needed for Pain February 01, 2018 12:00am August 01, 2018 2:52pmlubiprostone 0.008 mg oral capsule (12 sources)Chloride Channel ActivatorStart: 02-27-2019 End: 73-53-4275Bbnphilhlcgh [Amitiza] February 27, 2019 June 01, 2019 Discontinued Start: 02-27-2019 End: 39-81-8762Sbrmuxxmydmh (Amitiza) 8 mcg Capsule Discontinued February 27, 2019 12:00am June 01, 2019 4:14pmStart: 02-01-2018 End: 86-47-4598zpdh 1 capsule by mouth twice dailyLubiprostone 24 mcg capsule Discontinued 24 MCG PO Twice daily February 01, 2018 12:00am February 27, 2019 10:46amlurasidone hydrochloride 80 mg oral tablet (20 sources)Atypical AntipsychoticStart: 06-13-2019 End: 82-24-4127rpqq 1 tablet by mouth once dailyLurasidone (Latuda) 80 mg Tablet Discontinued 80 MG PO Daily with supper 14 June 13, 2019 12:00amSeptember 2024 12:14pmStart: 06-01-2019 End: 61-03-0219hflv 1 tablet by mouth once daily at dinnerLurasidone (Latuda) 60 mg Tablet Discontinued 60 MG PO Daily June 01, 2019 12:00am June 13, 2019 12:29pm with dinnerStart: 02-27-2019 End: 88-76-4639woqh 1 tablet by mouth once dailyLurasidone (Latuda) 40 mg Tablet Discontinued 1 TAB PO Daily February 27, 2019 12:00am June 01, 2019 4:14pm Start: 08-02-2018 End: 27-13-2813ovrp 40 mg by mouth once dailyLurasidone 40 MG Oral Daily with supper August 02, 2018 DiscontinuedStart: 08-02-2018 End: 25-19-6705uxgo 40 mg by mouth once dailyLurasidone [Latuda] 40 MG Oral Daily with supper August 02, 2018 August 02, 2018 DiscontinuedStart: 08-02-2018 End: 17-05-1270ljxm 1 tablet by mouth once dailyLurasidone (Latuda) 40 mg tablet Discontinued 40 MG PO Daily with supper August 02, 2018 12:00am August 02, 2018 10:47amStart: 02-01-2018 End: 71-45-0729nmjx 1 tablet by mouth once dailyLurasidone (Latuda) 60 mg tablet Discontinued 60 MG PO Daily February 01, 2018 12:00am August 01, 2018 2:52pmnaltrexone 380 mg injection (4 sources)Opioid AntagonistStart: 02-01-2018 End: 11-01-9426Hemampigbg Microspheres (Vivitrol) 380 mg suspension,extended rel recon Discontinued 380 MG Daily February 01, 2018 12:00am March 07, 2019 11:10am Last dose given 07/22/18, next dose due 08/19/18.omeprazole 20 mg delayed release oral capsule (4 sources)Proton Pump InhibitorStart: 08-15-2018 End: 21-89-5472qpns 40 mg by mouth once dailyOmeprazole 40 MG Oral Daily 60 August 15, 2018 February 27, 2019 DiscontinuedStart: 08-15-2018 End: 19-74-2043ksgr 2 capsules by mouth once dailyOmeprazole 20 mg Capsule,Delayed Release(Dr/Ec) Discontinued 40 MG PO Daily 60 August 15, 201812:00am February 27, 2019 10:46am24 hr oxybutynin chloride 5 mg extended release oral tablet (12 sources)Cholinergic Muscarinic AntagonistStart: 08-15-2018 End: 25-33-7279ttvz 1 tablet by mouth twice dailyOxybutynin Chloride 5 mg Tablet Discontinued 5 MG PO Twice daily 60 August 15, 2018 12:00am February 27, 2019 10:46amStart: 02-01-2018 End: 35-01-9889vhge 1 tablet by mouth once dailyOxybutynin Chloride [Ditropan Xl] 1 TAB Oral Daily February 27, 2019 June 01, 2019 DiscontinuedStart: 02-01-2018 End: 10-68-8364osmm 1 tablet by mouth once dailyOxybutynin Chloride (Ditropan Xl) 5 mg Tablet Extended Release 24hr Discontinued 1 TAB PO Daily February 27, 2019 12:00am June 01, 2019 4:14pmpramipexole dihydrochloride 0.25 mg oral tablet (12 sources)Nonergot Dopamine AgonistStart: 02-01-2018 End: 25-41-2822wamc 1 tablet by mouth at bedtimePramipexole (Mirapex) 0.25 mg Tablet Discontinued 1 TAB PO Bedtime February 27, 2019 12:00am June 01, 2019 4:14pmpromethazine hydrochloride 25 mg oral tablet (8 sources)PhenothiazineStart: 06-01-2019 End: 14-24-0681jcwx 1 tablet by mouth twice daily as needed for nausea Promethazine 25 mg tablet Discontinued 25 MG PO Twice daily as needed for Nausea June 01, 2019 12:00am March 27, 2022 8:28amStart: 02-01-2018 End: 18-63-4149afeu 1 tablet by mouth every four hours as needed for nausea Promethazine 25 mg tablet Discontinued 25 MG PO Q4H as needed for Nausea February 01, 2018 12:00am August 01, 2018 2:53pmpropranolol hydrochloride 40 mg oral tablet (4 sources)beta-Adrenergic BlockerStart: 02-01-2018 End: 38-00-6815dycf 20 mg by mouth once dailyPropranolol 20 MG Oral Daily February 01, 2018 DiscontinuedStart: 02-01-2018 End: 85-91-2198Dpfnhlpweuj 40 mg tablet Discontinued 20 MG PO Daily February 01, 2018 12:00am August 01, 2018 2:53pmsimvastatin 20 mg oral tablet (8 sources)HMG-CoA Reductase InhibitorStart: 08-02-2018 End: 14-66-7849jfav 1 tablet by mouth once daily in the eveningSimvastatin 20 mg Tablet Discontinued 20 MG PO Every evening August 15, 2018 12:00am February 27, 2019 10:46amtraZODone hydrochloride 100 mg oral tablet (12 sources)Serotonin Reuptake InhibitorStart: 08-15-2018 End: 10-43-1394celq 1 tablet by mouth once daily at bedtimeTrazodone 100 mg Tablet Discontinued 100 MG PO Daily at bedtime August 15, 2018 12:00am February 27, 2019 10:46amStart: 08-02-2018 End: 49-99-1072jnar 100 mg by mouth at bedtimeTrazodone 100 MG Oral Bedtime August 02, 2018 August 02, 2018 DiscontinuedStart: 08-02-2018 End: 70-37-9971cnvn 100 mg by mouth at bedtimeTrazodone 100 MG Oral Bedtime August 02, 2018 DiscontinuedStart: 02-01-2018 End: 50-22-2844bonr 1 tablet by mouth at bedtimeTrazodone 100 mg tablet Discontinued 100 MG PO Bedtime August 02, 2018 12:00am July 10:47am24 hr divalproex sodium 500 mg extended release oral tablet (8 sources)Mood Stabilizer, Anti-epileptic AgentStart: 08-02-2018 End: 77-81-2175bavm 1000 mg by mouth once dailyDivalproex 1000 MG Oral Daily August 02, 2018 August 02, 2018 DiscontinuedStart: 08-02-2018 End: 87-87-4053xffm 1000 mg by mouth once dailyDivalproex 1000 MG Oral Daily August 02, 2018 DiscontinuedStart: 08-02-2018 End: 27-43-5570Tssvensgjd 500 mg tablet extended release 24 hr Discontinued 1000 MG PO Daily August 02, 2018 12:00am August 02, 2018 10:48amStart: 02-01-2018 End: 38-81-1137qnej 1 tablet by mouth twice dailyDivalproex (Depakote) 500 mg Tablet,Delayed Release (Dr/Ec) Discontinued 500 MG PO Twice daily February 01, 2018 12:00am August 01, 2018 2:52pmzolpidem tartrate 10 mg oral tablet (2 sources)gamma-Aminobutyric Acid-ergic AgonistStart: 03-27-2022 End: 69-16-2213pdos 1 tablet by mouth once daily at bedtime as needed for sleep Zolpidem (Ambien) 10 mg Tablet Discontinued 10 MG PO Daily at bedtime as needed for Sleep March 27, 2022 12:00am August 03, 2025 12:14pm Problems Active Problems Problem ClassificationProblemDateDocumented DateEpisodic/ChronicAbdominal hernia (6 sources)Hernia of abdominal wall; Translations: [Incisional hernia]11-18-2020 EpisodicAnal and rectal conditions (2 sources)Rectal fetxolyb97-43-8768WxlvpmfbGolariely-xpwrpxs, conduct, and disruptive behavior disorders (2 sources)Attention deficit hyperactivity disorder, predominantly inattentive aryr22-71-9769LbuuqvjUbefjwu obstructive pulmonary disease and bronchiectasis (1 source)Bronchiectasis, uncomplicated; Translations: [BRONCHIECTASIS UNCOMPLICATED]Onset: 78-50-5104NcarxkqOdpyvokuf of lipid metabolism (9 sources)Mixed hyperlipidemia; Translations: [Mixed hyperlipidemia]Onset: 709366-34-1387YkfvwarWpkwrllvpg disorders (2 sources)Gastroesophageal reflux sazlhxa18-79-8232XaphrqtOqpwzhmook disorders (2 sources)Esophagitis; Translations: [Esophagitis, unspecified without bleeding]Onset: 56-82-8505RyhguvteBpcfewizm hypertension (5 sources)Hypertensive disorder; Translations: [Essential (primary) hypertension]Onset: 999152-65-4503LhmmxtdSjcytwrnz and duodenitis (1 source)Unspecified chronic gastritis without bleeding; Translations: [UNS CHRONIC GASTRITIS W/O BLEEDING]Onset: 52-30-3300HxapqqjCvuhxijvybqtip ulcer (except hemorrhage) (3 sources)Gastric ulcer, unspecified as acute or chronic, without hemorrhage or perforation; Translations: [Chronic gastric ulcer without hemorrhage AND without perforation]Onset: 69-44-5521EmevfhyTaqvpaemptqms symptoms and ill-defined conditions (2 sources)Urinary fjbszdodpcgt84-84-2053DtavsnfNfzs disorders (11 sources)Depressed bipolar I disorder; Translations: [Bipolar disorder]Onset: 118285-16-6564KhasfsaVdmgcu and vomiting (3 sources)Nausea; Translations: [Nausea]04-72-8578QbpmigfkRsgcp 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 source)correction (current) use of aspirin; Translations: [FOOT CASTER CURRENT USE OF ASPIRIN]Onset: 67-15-5367PzwcjwpnGxpqk gastrointestinal disorders (4 sources)Dysphagia; Translations: [Dysphagia, unspecified]Onset: 09-02-2022 EpisodicOther gastrointestinal disorders (2 sources)Oropharyngeal mlvgvtevm20-76-4200KvnhhwmgByeti gastrointestinal disorders (5 sources)Dysphagia, unspecified; Translations: [DYSPHAGIA UNSPECIFIED]Onset: 57-29-0432AsgzypxnVtyfm gastrointestinal disorders (4 sources)Dysphagia, oropharyngeal phase; Translations: [DYSPHAGIA OROPHARYNGEAL PHASE]Onset: 52-11-8278YipxokxeKhkoy hereditary and degenerative nervous system conditions (2 sources)Restless kahe30-39-1038XluepcwSnhck infections; including parasitic (2 sources)H/O: infectious ynaiovw59-56-4844ErrzuhrhSerky lower respiratory disease (4 sources)Shortness of breath; Translations: [SHORTNESS OF BREATH]Onset: 62-05-0628JlkhthilNaomm nutritional; endocrine; and metabolic disorders (2 sources)Body mass index 30+ - kefdafq06-31-3170AcozbbnEfuej nutritional; endocrine; and metabolic disorders (2 sources)Pzprrnn38-17-6418EzraiudJykno nutritional; endocrine; and metabolic disorders (1 source)Obesity, unspecified; Translations: [OBESITY UNSPECIFIED]Onset: 04-46-7767MukjxriRrqva nutritional; endocrine; and metabolic disorders (1 source)Body mass index (BMI) 35.0-35.9, adult; Translations: [BODY MASS INDEX BMI 35.0-35.9 ADULT]Onset: 10-34-5905HlpgykiLqnuu screening for suspected conditions (not mental disorders or infectious disease) (1 source)Abnormal findings on diagnostic imaging of other specified body structures; Translations: [ABNORML FIND DX IMG OTH BODY STRUC]Onset: 07-21-2022 ChronicOther screening for suspected conditions (not mental disorders or infectious disease) (10 sources)Imaging of gastrointestinal tract abnormal; Translations: [Abnormal findings on diagnostic imaging of other parts of digestive tract]Onset: 08-27-9392ZixgeiepPtkrg upper respiratory infections (1 source)Acute sinusitis, unspecified; Translations: [ACUTE SINUSITIS UNSPECIFIED]Onset: 67-33-4409DgwhwguyOqterllw codes; unclassified (2 sources)Obstructive sleep apnea idubzrae02-96-6157NbireduZtsoombu codes; unclassified (1 source)Obstructive sleep apnea (adult) (pediatric); Translations: [OBSTRUCTIVE SLEEP APNEA]Onset: 45-47-8476LwozgtcIrkzlmcj codes; unclassified (2 sources)Zefhswy58-56-2802LrgctbvfZvpoxttj codes; unclassified (1 source)Acquired absence of both cervix and uterus; Translations: [ACQUIRED ABSENCE BOTH CERVIX AND UTERUS]Onset: 29-68-5520BbqmjzfePuviknqb codes; unclassified (1 source)Acquired absence of other specified parts of digestive tract; Translations: [ACQ ABSENCE OTH PART DIGESTV TRACT]Onset: 04-68-2520Kqufajqk Residual codes; unclassified (3 sources)Localized edema; Translations: [LOCALIZED EDEMA]Onset: 07-13-2022 EpisodicSchizophrenia and other psychotic disorders (3 sources)Acute exacerbation of chronic schizophrenia; Translations: [Schizophrenia, unspecified]24-97-3829XvqszlhQjnompzxk and history of mental health and substance abuse codes (1 source)Personal history of nicotine dependence; Translations: [PERSONAL HISTORY OF NICOTINE DEPEND]Onset: 03-37-3023EqvqsqpgMewgaac and intentional self-inflicted injury (3 sources)Suicidal thoughts; Translations: [Suicidal ideations]06-02-2019 EpisodicUnclassified (1 source)ESOPHAGITIS UNSPEC WITHOUT BLEEDING; Translations: [ESOPHAGITIS UNSPEC WITHOUT BLEEDING]Onset: 64-31-5736Jilidycjvmur (4 sources)CONTACT W/AND (SUSP) EXPOS COVID-19; Translations: [CONTACT W/AND (SUSP) EXPOS COVID-19]Onset: 08-12-2022 Past or Other Problems Problem ClassificationProblemDateDocumented DateEpisodic/ChronicOther lower respiratory disease (5 sources)Other forms of dyspnea; Translations: [OTHER FORMS OF DYSPNEA]Onset: 86-91-2070MepptfnzOaeeiphkssoh (1 source)CONTACT W/AND (SUSP) EXPOS COVID-19; Translations: [CONTACT W/AND (SUSP) EXPOS COVID-19]Onset: 08-11-2022 Results Test NameValueInterpretationReference RangeFacilityDrug Screen,Urineon 26-57-1005Gvndumhpgjl Screen,UrineNegativeNormalNegativeThe [facility] Physician GroupComment on above:Performed By: #### URDS #### [place] [address] USABarbiturate Screen,UrinePositiveNormalNegativeOrlando Health St. Cloud Hospital Physician GroupComment on above:Performed By: #### URDS #### [place] [address] USABenzodiazepines Screen,UrineNegativeNormalNegativeOrlando Health St. Cloud Hospital Physician GroupComment on above:Performed By: #### URDS #### [place] [address] USACannabinoid Screen,UrineNegativeNormalNegativeOrlando Health St. Cloud Hospital Physician GroupComment on above:Result Comment: These are unconfirmed results and should not be used for legal purposes. Drug Cut-Off Concentration: AMPH 1000 ng/mL ALFREDO 200 ng/mL JAXON 200 ng/mL COCM 300 ng/mL OP 300 ng/mL PCP 25 ng/mL THC 20 ng/mL PERFORMED BY: [place] [address] PATHOLOGIST UX INFORMATION ARCHITECT FAMILIA MADRID M.D.Performed By: #### URDS #### [place] [address] USACocaine Screen,UrineNegativeNormalNegativeOrlando Health St. Cloud Hospital Physician GroupComment on above:Performed By: #### URDS #### [place] [address] USAOpiate Screen,UrineNegativeNormalNegativeOrlando Health St. Cloud Hospital Physician GroupComment on above:Performed By: #### URDS #### [address] [address] USAPhencyclidine Screen,UrineNegativeNormalNegativeThe [facility] Physician GroupComment on above:Performed By: #### URDS #### [facility] [address] [place] [address] USALon 08-22-2025 Specimen: [id number] Received: 08/22/25 Status: ERNESTINA Jean Num: [id number] Spec Type: Surgical Subm Dr: Candi Dia DO Tissues: A Small Intestine - Biopsy/Polyp (SMALL BOWEL BX) B Gastric Biopsy (GASTRIC BX) C Esophagus Biopsy (DISTAL ESOPHAGUS BX) D Esophagus Biopsy (PROXIMAL ESOPHAGUS BX) Procedures: BLAYNE/Katherine, Gross/Micro L4/4 Age/ Patient Sex Location Account Attending Physician Ebony Medley 65/F [id number] Candi Dia DO SPEC NUM: [id number] RECD: 08/22/25 STATUS: ERNESTINA JEAN NUM: [id number] BA: 08/22/[address]: Candi Dia DO ENTERED: 08/22/[address] [facility] [address]: SPEC TYPE: Surgical DEPT: S ENTERED BY: [id number] RECV BY: [id number] ORDERED: HE/8, Gross/Micro L4/4 ORDERED: HE/8, Gross/Micro L4/4 Pathological Diagnosis A. Small bowel, biopsy: Duodenal mucosa without significant histologic alteration B. Stomach, biopsy: Antral mucosa without significant histologic alteration C. Esophagus, distal, biopsy: Squamous mucosa with features consistent with reflux D. Esophagus, proximal, biopsy: Squamous mucosa with features consistent with reflux Clinical Information Esophageal stricture, Part A rule out celiac, Part B rule out H. pylori, Part C?Part D rule out eosinophilic esophagitis Specimen: [id number] Received: 08/22/25 Status: ERNESTINA Pena Num: [id number] Spec Type: Surgical Subm Dr: Candi Dia DO Tissues: A Small Intestine - Biopsy/Polyp (SMALL BOWEL BX) B Gastric Biopsy (GASTRIC BX) C Esophagus Biopsy (DISTAL ESOPHAGUS BX) D Esophagus Biopsy (PROXIMAL ESOPHAGUS BX) Procedures: HE/8, Gross/Micro L4/4 Patient: Ebony Medley [id number] (Continued) Specimen: [id number] Received: 08/22/25 (Continued) Signed (signature on file) Melissa Strong DO 08/23/25 1045 Specimen: [id number] Received: 08/22/25 Status: ERNESTINA Jean Num: [id number] Spec Type: Surgical Subm Dr: Candi Dia DO Tissues: A Small Intestine - Biopsy/Polyp (SMALL BOWEL BX) B Gastric Biopsy (GASTRIC BX) C Esophagus Biopsy (DISTAL ESOPHAGUS BX) D Esophagus Biopsy (PROXIMAL ESOPHAGUS BX) Procedures: BLAYNE/Katherine Gross/Marvin L4/4 Patient: Ebony Medley [id number] (Continued) Specimen: [id number] Received: 08/22/25 (Continued) Gross Description Part A is received in formalin labeled with the patients date of , and Rahrig, small bowel BX are 2 moeller-dong, focally erythematous, friable, 0.3 cm each in greatest dimension tissue bits. The specimen is entirely submitted in a single cassette. (1, ns, [id number] A) JG Part B is received in formalin labeled with the patients date of , and Rahrig,gastric BX is a moeller-dong, focally erythematous, friable, 0.3 cm in greatest dimension tissue bit. The specimen is entirely submitted in a single cassette. (1, ns, [id number] B) JG Part C is received in formalin labeled with the patients date of , and Rahrig, distal esophagus BX are 3 pale dong, focally erythematous, feathery, 0.2, 0.3 and 0.3 cm in greatest dimension tissue bits. The specimen is entirely submitted in a single cassette. (1, ns, [id number] C) JG Part D is received in formalin labeled with the patients date of , and Rahrig,proximal esophagus BX are 2 pale dong, focally erythematous, feathery, 0.3 cm each in greatest dimension tissue bits. The specimen is entirely submitted in a single cassette. (1, ns, P03-0185 D) Microscopic Description Features of reflux in specimens C and D are prominent/severe. CPT Codes 90043 x 4 Specimen: [id number] Received: 08/22/25 Status: ERNESTINA Pena Num: [id number] Spec Type: Surgical Subm Dr: Candi Dia, DO Tissues: A Small Intestine - Biopsy/Polyp (SMALL BOWEL BX) B Gastric Biopsy (GASTRIC BX) (more content not included)...NormalOrlando Health St. Cloud Hospital Physician GroupOffice Visiton [id number]-up [id number] Ebony Medley 1960 F Date Provider Department Center 07/02/2025 JESSIE RIVERA GAL [facility] Family History Problem Relation Age of Onset Hypertension Mother Diabetes Mother Hypertension Father Family Status - Relation Status Age at Mother Alive Father Level of Service:18540 [place] OFFICE/OUTPATIENT ESTABLISHED LOW MDM 20 [facility] Cultureon 56-92-5416Jwenwnsa identified Cx Nom (U)ORGANISM: Klebsiella variicola (O:KLEVAR) [place] Count >100,000 Aerobic MIL Charge (NMIC56) SUSCEPTIBILITY [...] <4 Tigecycline S <2 Tobramycin S <2 Trimethoprim/Sulfamethoxazole S <0.5 S = SUSCEPTIBLE I = [...] RESISTANT TO ALL B-LACTAM DRUGS. PERFORMED BY: [place] [id number] PATHOLOGIST UX INFORMATION ARCHITECT FAMILIA MADRID M.D.NormalOrlando Health St. Cloud Hospital Physician GroupComment on above: Performed By: #### CUU #### [place] [id number] KSA58xb 57-96-791491Qylymocsj echo performed on 07/11/2024: MD Coral Meyers MA Her echo was ok, follow up in 1 year.[facility] Office/Clinic Noteon 93-13-1382Zuzkeud Surgery Office/Clinic NoteChief Complaint post operative follow up HPI Staff [...] swallowing difficulties, no hearing loss, no ear infection(s),no nose bleeds. Cardiovascular: normal blood pressure, no [...] Tobacco Use:. Never Smokeless Tobacco Use:. Cigarettes, 1per day. Started age 13.0 Years. Stopped age 58 Years., 09/02/2022 Family History COPD: Brother. Diabetes mellitus type 2: Mother. Hypertension: Mother and Father.UC HealthComment on above:Result Comment: Electronically Signed By: CAIT LEHMAN, Ganga Valencia\Date and Time Signed: 10/21/22 15:25 ESTOperative Reporton 97-38-5099Jsppppreq Report [id number]#1.00CD:127UC HealthOperative Reporton 57-82-1680Qvqtxfoyv Report [id number]#1.00CD:[address] [place], [place] [address]Pathology Noteon 02-19-5957Xmsdjaylg Note [id number]#1.00CD:[address] [place], [place] [address]Lab Reportson 42-69-5585Abp Reports [id number]#1.00CD:[address] [place], [place] [address]Covid-19 PCR (CVDTBH)on 02-99-3407RPBB-CoV-2 (COVID-19) RNA ISABEL+probe Ql (Unsp spec)Not detectedNormalNOT DETECTEDThe [facility] AndersonComment on above: Result Comment: This test is not yet approved or cleared by the [place] FDA. When there are no FDA-approved or cleared tests available, and other criteria are met, FDA can make tests available under an emergency access mechanism called an Emergency Use Authorization (EUA). The EUA for this test is supported by the Pharmacy Data Analyst of Health and Human Service's (HHS's) declaration [...] of clinical signs and symptoms consistent with SARS-CoV-2.Performed By: #### CVDTBH #### [facility] [address] [place] [address] Dr. Osmar Johnson for Procedure/Surgeryon 95-04-6577Crnlnuo for Procedure/[id number]#1.00CD:127UC HealthAmbulatory Visit Summaryon 14-96-8887Zxgkvorbpb Visit Summary EBONY MEDLEY :1960 Visit Date:09/02/2022 Ambulatory Visit Instructions Your Care Team Attending Physician - Ganga PEARCE MD Primary Care Physician - Nola Ramirez MD [...] 1 Capsules By Mouth Every day Contact prescribingphysician if questions or concerns Unchanged lithium (lithium [...] History of Clostridium difficile infection Memory loss [facility] Correspondenceon 61-22-0183ShpnyxfTrinitas Hospital Correspondence [id number]#1.00CD:127Arcelia [facility]RAD - [facility] Reporton 09-81-3623ZMT - CT Report [id number]#1.00CD:127AidaSandhills Regional Medical Centerjong [facility] HospitalRAD - MISCon 67-68-6921IGB - MISC [id number]#1.00CD:127LatoniaTrumbull Regional Medical CenterPhysician Referralon 63-69-1398Lfutqystp Referral [id number]#1.00CD:ShoshanaUC HealthCovid-19 PCR (CVDTB)on 57-37-2350TOXG-CoV-2 (COVID-19) RNA ISABEL+probe Ql (Unsp spec)Not detectedNormalNOT DETECTEDThe [facility] AndersonComment on above: Result Comment: This test is not yet approved or cleared by the [place] FDA. When there are no FDA-approved or cleared tests available, and other criteria are met, FDA can make tests available under an emergency access mechanism called an Emergency Use Authorization (EUA). The EUA for this test is supported by the Pharmacy Data Analyst of Health and Human Service's (HHS's) declaration [...] of clinical signs and symptoms consistent with SARS-CoV-2.Performed By: #### CVDTBH #### [facility] [address] [place] [address] Dr. Osmar CoxXR MODIFIED BARIUM SWALLOWon 86-15-1364EY MODIFIED BARIUM SWALLOW EXAMINATION: XR MODIFIED BARIUM [...] Electronically authenticated by: NICOLAS KIRK Date: 2022-08-06 15:18[facility]imaCardiovascular Lab Reporton 81-42-7206Gpveuzfzqdsbrt Lab Report [facility] Patient Name: [facility] MR #: [id number] Physician: Jessie De Oliveira of [facility]ie Arnett Medicine Service Date: 07/28/2022 Division of Birthdate: 1960 Cardiology Room #: [facility] Cardiovascular Services [place] [address] Cardiovascular Laboratory Report INDICATIONS: The patient is [...] informed consent. She was brought to laboratory helper in a fasting state. The right neck area was prepped and draped in usual fashion. Micropuncture technique and ultrasound guidance were used for access in the right internal jugular vein. A 6-Nigerien x 11 cm sheath was placed. A 6-Nigerien Suarez catheter was used for right heart catheterization and measurement of pressures and calculation of cardiac output using the estimated Karina method. Suarez catheter was removed. Micropuncture technique and ultrasound guidance were used for access in the right radial artery. A 5-Nigerien x 11 cm slender sheath was advanced. Verapamil was given through the sheath and heparin was administered intravenously. Bilateral selective coronary angiography was then performed using 5-Nigerien JL 3.5 and JR5 diagnostic catheters. Catheters [...] Arnett M.D. Date Trans: 07/29/2022 03:31 A/gladys DN_JN:[id number] cc: Nola Ramirez M.D. [facility] [address] [facility] [address]HnydpyCxzGalion Community HospitalCBC AUTO DIFF on 03-49-3847OPHI #0.1 103/ulNormal0.0-0.1The [facility] - AndersonComment on above: Performed By: #### CBC #### [facility] [address] [place] [address] [address] Osmar CoxBasophils/100 WBC (Bld)0.9 %Normal0.2-2.0The [facility] Comment on above:Performed By: #### CBC #### [facility] [address] [place] [address] Dr. Osmar Coe #0.0 103/ulNormal0.0-0.7The [facility] AndersonComment on above: Performed By: #### CBC #### [facility] [address] [place] [address] Dr. Osmar Snellosinophils/100 WBC (Bld)0.1 %Critically low0.9-7.0The [facility] - AndersonComment on above:Performed By: #### CBC #### [facility] [address] [place] [address] Dr. Osmar Snellrythrocyte distribution width (RBC) [Ratio]15.4 %Critically high 11.0-15.0The [facility] - AndersonComment on above:Performed By: #### CBC #### [facility] [address] [place] [address] Dr. Osmar CoxHematocrit (Bld) [Volume fraction]40.7 %Zkruum66.0-48.0The [facility] AndersonComment on above:Performed By: #### CBC #### [facility] [address] [place] [address] Dr. Osmar CoxHemoglobin (Bld) [Mass/Vol]12.5 g/mCCsdnbr24.0-16.0The [facility] AndersonComment on above:Performed By: #### CBC #### [facility] [address] [place] [address] Dr. Osmar Llanos #0.08 10e3/ulCritically high0.00-0.03The [facility] Comment on above:Performed By: #### CBC #### [facility] [address] [place] [address] Dr. Osmar Llanos %0.7 %Critically high0.0-0.5The [facility] AndersonComment on above:Performed By: #### CBC #### [facility] [address] [place] [address] Dr. Osmar Godinez #2.6 103/ulNormal1.2-3.8The [facility] - AndersonComment on above:Performed By: #### CBC #### [facility] [address] [place] [address] Dr. Osmar Martinezhocytes/100 WBC (Bld)22.8 %Gumitl98.5-60.0The [facility] - AndersonComment on above:Performed By: #### CBC #### [facility] [address] [place] [address] Dr. Osmar ShinUAL DIFF REQNONormalThe [facility] - AndersonComment on above: Performed By: #### CBC #### [facility] [address] [place] [address] Dr. Osmar Nolan (RBC) [Entitic mass]24.4 pgCritically low26.7-34.0The [facility] AndersonComment on above:Performed By: #### CBC #### [facility] [address] [place] [address] Dr. Osmar Harp (RBC) [Mass/Vol]30.7 g/qHJwdeba54.9-35.2The [facility] AndersonComment on above:Performed By: #### CBC #### [facility] [address] [place] [address] Dr. Osmar Harp (RBC) [Entitic vol]79.3 fLCritically low81.0-99.0The [facility] AndersonComment on above:Performed By: #### CBC #### [facility] [address] [place] [address] [address] Osmar Fair #1.0 103/ulCritically high0.3-0.8The [facility] Comment on above:Performed By: #### CBC #### [facility] [address] [place] [address] Dr. Osmar Acostaocytes/100 WBC (Bld)8.9 %Normal1.7-12.0The [facility] Comment on above:Performed By: #### CBC #### [facility] [address] [place] [address] Dr. Osmar Whitten #7.6 103/ulCritically high1.4-6.5The [facility] Comment on above:Performed By: #### CBC #### [facility] [address] [place] [address] Dr. Osmar Campoutrophils/100 WBC (Bld)66.6 %Fvdeas52.0-75.0The [facility] - AndersonComment on above:Performed By: #### CBC #### [facility] [address] [place] [address] Dr. Osmar Reidlet mean volume (Bld) [Entitic vol]8.8 fLCritically low 9.5-13.5The [facility] AndersonComment on above:Performed By: #### CBC #### [facility] [address] [place] [address] Dr. Osmar MembrenoT438 103/fkTkkxfy378-705Wpw [facility] - AndersonComment on above: Performed By: #### CBC #### [facility] [address] [place] [address] Dr. Osmar CoxRBC5.13 106/ulNormal4.20-5.40The [facility] AndersonComment on above:Performed By: #### CBC #### [facility] [address] [place] [address] Dr. Osmar CoxWBC11.3 103/ulCritically high4.0-11.0The [facility] AndersonComment on above:Performed By: #### CBC #### [facility] [address] [place] [address] Dr. Osmar CoxCovid-19 PCR ([facility])on 94-56-8823ZLCG-CoV-2 (COVID-19) RNA ISABEL+probe Ql (Unsp spec)Not detectedNormalNOT DETECTEDThe [facility] Comment on above:Result Comment: This test is not yet approved or cleared by the [place] FDA. When there are no FDA-approved or cleared tests available, and other criteria are met, FDA can make tests available under an emergency access mechanism called an Emergency Use Authorization (EUA). The EUA for this test is supported by the Pharmacy Data Analyst of Health and Human Service's (HHS's) declaration that circumstances exist to justify the emergency use of in vitro diagnostics for the detection and/or diagnosis of the virus that causes COVID- 19. This EUA will remain in effect (meaning [...] of clinical signs and symptoms consistent with SARS-CoV-2.Performed By: #### [facility] #### [facility] [address] [place] [address] Dr. Osmar CoxCT CHEST HI RESOLUTIONon 06-34-7222CC CHEST HI RESOLUTION EXAMINATION: CT CHEST HI [...] Electronically authenticated by: CONSUELO TELLES Date: 2022-07-20 11:51[facility] Hospital LimaBNPon 04-54-0805Oqtyyodnkhd peptide B (Bld) [Mass/Vol]85.0 pg/mLNormal<=900.0The Lima City Hospitalment on above:Performed By: #### BNP, BMP, LIVER, LIPID ####[facility] [address] [place] [address]Dr. Yilan ChangLIPID PROFILEon 47-83-3147HRXS-HDL RATIO NORMSEE BELOW NormalThe [facility] - AndersonComhelen [facility]os [facility] on above:Result Comment: 3.3 - 4.4 LOW RISK 4.4 - 7.1 AVERAGE RISK 7.1 - 11.0 MODERATE RISK >11.0 HIGH RISKPerformed By: #### BNP, BMP, LIVER, LIPID ####[facility] [address] [place] [address]Dr. Yilan ChangCholesterol [Mass/Vol]229 mg/dL Critically high<=200The [facility] AndersonComment on above:Performed By: #### BNP, BMP, LIVER, LIPID ####[facility] X[address]bp[address]pg[address] [place] [address]Dr. Yilan ChangCholesterol in HDL [Mass/Vol]51 mg/dL Gjhaho99-06Jqs [facility] - AndersonComment on above:Performed By: #### BNP, BMP, LIVER, LIPID ####[facility] Pdcewqteat[address] [place] [address]Dr. Yilan ChangCholesterol in LDL [Mass/Vol]130.2 mg/dLDayton VA Medical Centerment on above:Performed By: #### BNP, BMP, LIVER, LIPID ####[facility] [address]ngpqki[address] [place] [address]Dr. Yilan Cox Cholesterol.total/Cholesterol in HDL [Mass ratio]4.5 {ratio}NormalThe [facility] on above:Performed By: #### BNP, BMP, LIVER, LIPID ####[facility] J[address]prcsxavg[address] [place] [address]Dr. Yilan ChangHDL NORMAL> or = 60 mg/dl - LOW CARDIOVASCULAR RISK <40 mg/dl - HIGH CARDIOVASCULAR RISKKindred Hospital LimaComment on above:Performed By: #### BNP, BMP, LIVER, LIPID ####[facility] [address]demulj[address] [place] [address]Dr. Yilan ChangLDL CALC NORMALSEE BELOWKindred Hospital LimaComment on above:Result Comment: <100 mg/dl OPTIMAL 100 - 129 mg/dl NEAR OR ABOVE OPTIMAL 130 - 159 mg/dl BORDERLINE HIGH 160 - 189 mg/dl HIGH >190 mg/dl VERY HIGHPerformed By: #### BNP, BMP, LIVER, LIPID ####[facility] X[address] [place] [address]Dr. Lindalan ChangTriglyceride [Mass/Vol]239 mg/dLCritically high<=150The [facility] - AndersonComment on above: Performed By: #### BNP, BMP, LIVER, LIPID ####[facility] Er[address] [place], [place] [address]Dr. Lindalan ChangVLDL CALC47.8 mg/dLNoVeterans Health AdministrationComment on above:Performed By: #### BNP, BMP, LIVER, LIPID ####[facility] B[address]ke[address] [place] [address]Dr. Lindalan ChangLIVER PROFILEon 80-00-3225Keleycd [Mass/Vol]3.5 g/dLNormal3.4-5.0[facility] Hospital CompanyComment on above:Performed By: #### BNP, BMP, LIVER, LIPID ####[facility] [address]qwxltdjj[address] [place] [address]Dr. Lindalan ChangAlbumin/Globulin [Mass ratio]1.0 {ratio}NormalThe [facility] Comment on above:Performed By: #### BNP, BMP, LIVER, LIPID ####[facility] Ig[address]fmxzmy[address] [place] [address]Dr. Lindalan ChangALP [Catalytic activity/Vol]183 U/LCritically aopt52-464Qyq [facility] AndersonComment on above: Performed By: #### BNP, BMP, LIVER, LIPID ####[facility] [address]udn[address] [place] [address]Dr. Yilan ChangALT [Catalytic activity/Vol] 32 U/ZIaumlg46-06Tuk [facility] AndersonComment on above:Performed By: #### BNP, BMP, LIVER, LIPID ####[facility] O[address]zed[address] [place] [address]Dr. Yilan ChangAST [Catalytic activity/Vol]17 U/MVorjgt65-56Yue [facility] AndersonComment on above:Performed By: #### BNP, BMP, LIVER, LIPID ####[facility] [address]vweovns[address] [place] [address]Dr. Yilan ChangBILI, CONJUGATED0.1 mg/dLNormal0.0-0.2The [facility] AndersonComment on above:Performed By: #### BNP, BMP, LIVER, LIPID ####[facility] M[address] [place], [place] [address]Dr. Yilan ChangBilirubin [Mass/Vol]0.2 mg/dLNormal0.2-1.0The [facility] AndersonComment on above:Performed By: #### BNP, BMP, LIVER, LIPID ####[facility] Oudulnitbn[address] [place], [place] [address]Dr. Yilan ChangGlobulin (S) [Mass/Vol]3.5 g/dLNormal The [facility] AndersonComment on above:Performed By: #### BNP, BMP, LIVER, LIPID ####[facility] Re[address]dx[address] [place], [place] [address]Dr. Yilan ChangProtein [Mass/Vol]7.0 g/dLNormal6.4-8.2The [facility] AndersonComment on above:Performed By: #### BNP, BMP, LIVER, LIPID ####[facility] Rnlnxqriau[address] [place], [place] [address]Dr. Yilan ChangPROF CHEM 8 (BAS METB)on 84-14-3818Mnukc gap [Moles/Vol]11.6 mmol/LNormalThe Centralia HospitalComment on above:Performed By: #### BNP, BMP, LIVER, LIPID #### [facility] [address] [place] [address] [address] Osmar CoxCalcium [Mass/Vol]8.9 mg/dLNormal8.5-10.1The [facility] Comment on above:Performed By: #### BNP, BMP, LIVER, LIPID #### [facility] [address] [address] [address] Osmar CoxChloride [Moles/Vol]104 mmol/YLmgcjv77-285Att [facility] Comment on above:Performed By: #### BNP, BMP, LIVER, LIPID #### [facility] [address] [place] [address] Dr. Osmar CoxCO2 [Moles/Vol]26.0 mmol/VBdxdyw29.0-32.0The [facility] Comment on above:Performed By: #### BNP, BMP, LIVER, LIPID #### [facility] [address] [place] [address] Dr. Osmar CoxCreatinine [Mass/Vol]0.80 mg/dLNormal0.55-1.02The [facility] AndersonComment on above:Performed By: #### BNP, BMP, LIVER, LIPID #### [facility] [address] [place] [address] Dr. Osmar SnellGFR-AF SINGAPOREAN>60Normal>=60The [facility] AndersonComment on above:Performed By: #### BNP, BMP, LIVER, LIPID #### [facility] [address] [place] [address] Dr. Osmar SnellGFR-NON AF SINGAPOREAN>60Normal>=60The [facility] AndersonComment on above:Performed By: #### BNP, BMP, LIVER, LIPID #### [facility] [address] [place] [address] Dr. Osmar CoxGlucose [Mass/Vol]100 mg/pQXzeyhj65-004WzsRegency Hospital Company Comment on above:Performed By: #### BNP, BMP, LIVER, LIPID #### [facility] [address] [place] [address] Dr. Osmar CoxPotassium [Moles/Vol]4.6 mmol/LNormal3.5-5.1[facility] Comment on above:Performed By: #### BNP, BMP, LIVER, LIPID #### [facility] [address] [address] [address] Osmar CoxSodium [Moles/Vol]137 mmol/ROxcqjm588-074LvqRegency Hospital Company Comment on above:Performed By: #### BNP, BMP, LIVER, LIPID #### [facility] [address] [address] [address] Osmar CoxUrea nitrogen [Mass/Vol]20.0 mg/dLCritically high7.0-18.0The [facility] AndersonComment on above:Performed By: #### BNP, BMP, LIVER, LIPID #### [facility] [address] [place] [address] Dr. Osmar Klein nitrogen/Creatinine [Mass ratio]25.0 mg/mgNoVeterans Health AdministrationComment on above:Performed By: #### BNP, BMP, LIVER, LIPID #### [facility] [address] [place] [address] Dr. Osmar Olivera CHEST 2 Von 89-05-1641HJ CHEST 2 VEXAMINATION: XR CHEST 2 V HISTORY: Dyspnea COMPARISON: 06/02/2022 TECHNIQUE: [...] Electronically authenticated by: CONSUELO TELLES Date: 2022-06-04 19:26[facility] LimaHEMOGLOBINon 39-68-7816Bfgqxmzqvp (Bld) [Mass/Vol]12.1 g/dL Rbzioj32.0-16.0Reg[facility] Hospital CompanyComment on above:Performed By: #### HGB #### [facility] [address] [place] [address] Dr. Osmar Olivera CHEST 2 Von 32-04-6376PV CHEST 2 VEXAMINATION: XR CHEST 2 V HISTORY: Dyspnea COMPARISON: 10/09/2020 TECHNIQUE: [...] Electronically authenticated by: CONSUELO TELLES Date: 2022-06-02 19:[address] [place] [address] STRESS/REST MULTIon 26-23-3251LQ STRESS/REST MULTIPatient: EBONY MEDLEY Exam Date: 05/06/2022 : 1960 Gender:F Ordering : DR NOLA RAMIREZ . Admission #: [id number] Family : Order #: [id number] CLICK HERE TO VIEW EXAM RADIOLOGY REPORT [...] by: Nicolas Kirk M.D. on 05/07/2022 at 11:04[facility] LimaECHOCARDIO M/2D COMPLETEon 38-75-5475CGKJHEKEGK M/2D COMPLETEPatient: EBONY MEDLEY Exam Date: 04/29/2022 : 1960 Gender:F Ordering : DR NOLA RAMIREZ . Admission #: [id number] Family : Order #: [id number] CLICK HERE TO VIEW EXAM ECHOCARDIOGRAM REPORT [...] Gradient: 4.10 mm[Hg] Right Atrium Dictated by: Jessei Arnett M.D. on 04/30/2022 at 20:06 Approved by: Jessie Arnett M.D. on 04/30/2022 at 20:09[facility] LimaLITHIUMon 46-18-9315Jwdptbs (Sin(R)), Serum0.6 mmol/LNormal0.5-1.2 [facility] on above:Result Comment: Plasma concentration of 0.5 - 0.8 mmol/L are advised for long-term use; concentrations of up to 1.2 mmol/L may be necessary during acute treatment. Detection Limit = 0.1 <0.1 indicates None DetectedPerformed By: #### LITHIUM ####[facility] [address] [place], [place] [address]Dr. Osmar CoxLIPID PROFILE on 02-66-0247RGWU-HDL RATIO NORMSSouthwest General Health CenterComhelen devos [facility] on above:Result Comment: 3.3 - 4.4 LOW RISK 4.4 - 7.1 AVERAGE RISK 7.1 - 11.0 MODERATE RISK >11.0 HIGH RISKPerformed By: #### TSH, T4, LIPID, CMP ####[facility] [address] [id number]. Osmar Cox Cholesterol [Mass/Vol]269 mg/dLCritically high<=200[facility] on above:Performed By: #### TSH, T4, LIPID, CMP ####[facility] [address] [id number]. Osmar CoxCholesterol in HDL [Mass/Vol]48 mg/oMLiemub71-97Mfv [facility] on above: Performed By: #### TSH, T4, LIPID, CMP ####[facility] [address] [address]Dr. Yilan ChangCholesterol in LDL [Mass/Vol] 145.8 mg/dLSumma Health Wadsworth - Rittman [facility] Center on above:Performed By: #### TSH, T4, LIPID, CMP ####[facility] [address] [address]Dr. Yilan ChangCholesterol.total/Cholesterol in HDL [Mass ratio]5.6 {ratio}NormalThe [facility] AndersonComhelen devos children[facility] on above:Performed By: #### TSH, T4, LIPID, CMP ####[facility] I[address] [place], [place] [address]Dr. Yilan ChangHDL NORMAL> or = 60 mg/dl - LOW CARDIOVASCULAR RISK <40 mg/dl - HIGH CARDIOVASCULAR RISKKindred Hospital LimaComhelen devos children's hospital on above: Performed By: #### TSH, T4, LIPID, CMP ####[facility] Uzonterx[address] [place], [place] [address]Dr. Yilan ChangLDL CALC NORMALSEE BELOWKindred Hospital LimaComment on above:Result Comment: <100 mg/dl OPTIMAL 100 - 129 mg/dl NEAR OR ABOVE OPTIMAL 130 - 159 mg/dl BORDERLINE HIGH 160 - 189 mg/dl HIGH >190 mg/dl VERY HIGHPerformed By: #### TSH, T4, LIPID, CMP ####[facility] [address] [address]Dr. Yilan ChangTriglyceride [Mass/Vol]376 mg/dLCritically high<=150[facility] CompanyComhelen devos children[facility] hospital on above: Performed By: #### TSH, T4, LIPID, CMP ####[facility] [address] [address]Dr. Yilan ChangVLDL CALC75.2 mg/dLKindred Hospital LimaComhelen devos children's hospital on above:Performed By: #### TSH, T4, LIPID, CMP ####[facility] [address] [address]Dr. Yilan ChangPROF 14(COMP METB)on 93-21-1335Gdflbvu [Mass/Vol]3.4 g/dLNormal 3.4-5.0The [facility] AndersonComment on above:Performed By: #### TSH, T4, LIPID, CMP ####[facility] [address] [address]Dr. Yilan ChangAlbumin/Globulin [Mass ratio]1.0 {ratio}NormalRegency Hospital Company Comment on above:Performed By: #### TSH, T4, LIPID, CMP ####[facility] [address] [address]Dr. Yilan ChangALP [Catalytic activity/Vol]118 U/LCritically zmja72-555Uno [facility] AndersonComment on above: Performed By: #### TSH, T4, LIPID, CMP ####[facility] Kom[address] [place], [place] [address]Dr. Yilan ChangALT [Catalytic activity/Vol]17 U/L Vrlcls59-56Dnp [facility] AndersonComment on above:Performed By: #### TSH, T4, LIPID, CMP ####[facility] Aeik[address]hpcw[address] [place], [place] [address]Dr. Yilan ChangAnion gap [Moles/Vol]11.3 mmol/LNormalThe [facility] Comment on above:Performed By: #### TSH, T4, LIPID, CMP ####[facility] Axvb[address] [place], [place] [address]Dr. Yilan ChangAST [Catalytic activity/Vol]11 U/LCritically yyf40-56Kgl [facility] AndersonComment on above: Performed By: #### TSH, T4, LIPID, CMP ####[facility] F[address] [place], [place] [address]Dr. Yilan ChangBilirubin [Mass/Vol]0.2 mg/dL Normal0.2-1.0The [facility] - AndersonComment on above:Performed By: #### TSH, T4, LIPID, CMP ####[facility] [address] [address]Dr. Yilan ChangCalcium [Mass/Vol]8.7 mg/dLNormal8.5-10.1The [facility] AndersonComment on above:Performed By: #### TSH, T4, LIPID, CMP ####[facility] [address] [address]Dr. Yilan Cox Chloride [Moles/Vol]106 mmol/AMfovwn67-352Kwb [facility] AndersonComment on above: Performed By: #### TSH, T4, LIPID, CMP ####[facility] Axrezypbot[address] [place], [place] [address]Dr. Yilan ChangCO2 [Moles/Vol]23.6 mmol/LNormal 21.0-32.0The [facility] AndersonComment on above:Performed By: #### TSH, T4, LIPID, CMP ####[facility] Tw[address]qiuzfdx[address] [place], [place] [address]Dr. Yilan ChangCreatinine [Mass/Vol]0.86 mg/dLNormal0.55-1.02[facility] Hospital CompanyComhelen devos children's hospital on above:Performed By: #### TSH, T4, LIPID, CMP ####[facility] [address] [place], [place] [address]Dr. Yilan ChangEGFR- AF SINGAPOREAN>=60Normal>=60[facility] on above:Performed By: #### TSH, T4, LIPID, CMP ####[facility] W[address]srpbqs[address] [place], [place] [address]Dr. Yilan ChangEGFR-NON AF SINGAPOREAN>=60Normal>=60[facility] on above:Performed By: #### TSH, T4, LIPID, CMP ####[facility] [address] [place], [place] [address]Dr. Yilan ChangGlobulin (S) [Mass/Vol]3.3 g/dLNormalThe [facility] AndersonComhelen [facility] on above:Performed By: #### TSH, T4, LIPID, CMP ####[facility] M[address]qhdvjcg[address] [place], [place] [address]Dr. Yilan ChangGlucose [Mass/Vol]104 mg/jFBsxdak11-064LoyRegency Hospital CompanyComhelen devos children's hospital on above:Performed By: #### TSH, T4, LIPID, CMP ####[facility] Gybmfoazmr[address] [place], [place] [address]Dr. Yilan ChangPotassium [Moles/Vol]4.9 mmol/LNormal 3.5-5.1The [facility] AndersonComment on above:Performed By: #### TSH, T4, LIPID, CMP ####[facility] [address] [address]Dr. Yilan ChangProtein [Mass/Vol]6.7 g/dLNormal6.1-8.2The [facility] AndersonComment on above:Performed By: #### TSH, T4, LIPID, CMP ####[facility] [address] [place], [place] [address]Dr. Yilan ChangSodium [Moles/Vol]136 mmol/ULnyqaf807-159Vpc [facility] AndersonComment on above: Performed By: #### TSH, T4, LIPID, CMP ####[facility] J[address]avt[address] [place], [place] [address]Dr. Yilan ChangUrea nitrogen [Mass/Vol]25.0 mg/dLCritically high7.0-18.0The [facility] AndersonComment on above:Performed By: #### TSH, T4, LIPID, CMP ####[facility] Fsmsyugozi[address] [place], [place] [address]Dr. Yilan ChangUrea nitrogen/Creatinine [Mass ratio] 29.1 mg/mgNormalThe [facility] AndersonComment on above:Performed By: #### TSH, T4, LIPID, CMP ####[facility] Gr[address] [place], [place] [address]Dr. Yilan LfaukP2eh 13-88-1582Q3 [Mass/Vol]7.60 ug/dLNormal4.80-13.90 The [facility] AndersonComment on above:Performed By: #### TSH, T4, LIPID, CMP ####[facility] [address]rezkln[address] [place], [place] [address]Dr. Yilan ChangTSHon 22-61-3143RES5.427 uIU/mLNormal0.470-4.680The [facility] Comment on above:Performed By: #### TSH, T4, LIPID, CMP ####[facility] [address] [place], [place] [address]Qu. Osmar CERRATOSouthwest General Health CenterComment on above:Result Comment: <0.34 UIU/ml HYPERTHYROID 0.34-5.60 UIU/ml EUTHYROID >5.60 UIU/ml HYPOTHYROIDPerformed By: #### TSH, T4, LIPID, CMP ####[facility] [address] [place], [place] [address]YwKate Osmar Tate Studieson 77-03-2081Ikefaay [Mass/Vol]3.8 g/dL3.2-5.5FSumma Health CtrAlbumin/Globulin [Mass ratio]1.5 {ratio}[facility] CtrALP [Catalytic activity/Vol]75 U/V67-16SvgbdbuvvSelect [facility]ty [facility] CtrALT No additional P-5'-P [Catalytic activity/Vol]16 U/E14-81LaqcntwsmSelect [facility] CtrAST [Catalytic activity/Vol]18 U/O92-68SzqwoarpaSelect Medical Specialty Hospital [facility] CtrBasophils (Bld) [#/Vol]0.1 10*3/uL0.0-0.2FSumma Health CtrBasophils/100 WBC (Bld)1.0 % [facility] CtrBilirubin [Mass/Vol]0.5 mg/dL0.3-1.2FSumma Health CtrCalcium [Mass/Vol]9.2 mg/dL8.2-10.2FSumma Health CtrCarbamazepine [Mass/Vol]< 2.0 ug/mLLow4.0-12.0[facility] CtrChloride [Moles/Vol]103 mmol/U69-675OuabppqqnSelect [facility] CtrCK [Catalytic activity/Vol]46 U/N32-254GzrcqcunmSelect [facility] CtrCK.MB [Mass/Vol]1.0 ng/mL0.6-6.3FSumma Health CtrCK.MB Calc [Catalytic fraction]2.10.00-2.50[facility] CtrCO2 [Moles/Vol]24.9 mmol/L 22.0-30.0[facility] CtrCreatinine [Mass/Vol]0.58 mg/dL0.44-1.03 [facility] CtrEosinophils (Bld) [#/Vol]0.2 10*3/uL0.0-0.45 [facility] CtrEosinophils/100 WBC (Bld)3.1 %[facility] CtrErythrocyte distribution width (RBC) [Ratio]13.5 %11.9-15.3FSumma Health CtrEthanol [Mass/Vol]mg/dLSelect Medical Specialty Hospital [facility] CtrEthanol [Mass/Vol]TNPSelect [facility] CtrComment on above:Test not performed GFR/1.73 sq M predicted among blacks MDRD (S/P/Bld) [Vol rate/Area] mL/min/{1.73_m2}[facility] CtrComment on above:GFR estimated reference range: According to KDOQI guidelines, <60 ml/min/1.73m2 is sufficient todiagnose a patient with chronic kidney disease.GFR/1.73 sq M predicted among non-blacks MDRD (S/P/Bld) [Vol rate/Area]mL/min/{1.73_m2}[facility] CtrGlobulin (S) [Mass/Vol]2.6 g/dLSelect [facility]ty [facility] CtrGlucose [Mass/Vol]96 mg/oU93-066GhqttswrfSelect [facility]ty [facility] CtrComment on above:ADA recommended reference range Random Glucose Reference Range is dependent on time and content of last meal. Glucose of more than 200 mg/dL in a nonstressed, ambulatory subject supports the diagnosis of Diabetes Mellitus.Hematocrit (Bld) [Volume fraction]38.7 % 34.0-46.4FSumma Health CtrHemoglobin (Bld) [Mass/Vol]12.8 g/dL 11.8-15.4FSumma Health CtrLymphocytes (Bld) [#/Vol]2.1 10*3/uL 1.00-4.8[facility] CtrLymphocytes/100 WBC (Bld)33.0 %[facility] Medical CenterMCH (RBC) [Entitic mass]28.3 pg24.7-34.3FSt. Rita's HospitalMCHC (RBC) [Mass/Vol]33.1 g/dL32.0-35.0[facility] MCV (RBC) [Entitic vol]85.4 kI38-520LkjmunryuSelect Medical Specialty Hospital [facility] CtrMonocytes (Bld) [#/Vol]0.5 10*3/uL0.0-0.8[facility] CtrMonocytes/100 WBC (Bld)7.2 %[facility] CtrNeutrophils (Bld) [#/Vol]3.5 10*3/uL 1.8-7.7FSumma Health CtrNeutrophils/100 WBC (Bld)55.7 %[facility] CtrPharmacy Creatinine Clearance (Chem87.4588[facility] CtrPlatelet mean volume (Bld) [Entitic vol]6.9 fL6.3-10.7FSumma Health CtrPlatelets (Bld) [#/Vol]270 10*3/eB476-486EyyttirahSelect Medical Specialty Hospital [facility] CtrPotassium [Moles/Vol]4.3 mmol/L3.5-5.1FSumma Health Ctr Protein [Mass/Vol]6.4 g/dL6.1-7.9[facility] CtrRBC (Bld) [#/Vol] 4.52 10*6/uL3.60-5.00[facility] CtrSodium [Moles/Vol]136 mmol/L 136-146[facility] CtrTroponin I.cardiac [Mass/Vol]ng/mL0-0.02 [facility] CtrComment on above:RIZWANA ND Cut off value > or equal to 0.03 ng/mL in conjunction with clinical conditions of myocardial infarction. (www.escardio.org/guidelines)Urea nitrogen [Mass/Vol]18 mg/dL9-23[facility] CtrValproate [Mass/Vol]52.6 ug/mL50.0-100.0[facility] CtrComment on above:Last dose: -WBC (Bld) [#/Vol]6.3 10*3/uL3.8-11.6 [facility] CtrAmphetamines Ql (U)NegativeSelect Medical Specialty Hospital [facility] CtrBarbiturates Ql (U)NegativeSelect Medical Specialty [facility] Ctr Benzodiazepines Ql (U)NegativeSelect Medical Specialty [facility] CtrBilirubin Ql (U) NegativeSelect Medical [facility]ty [facility] CtrCannabinoids Screen Ql (U)Negative [facility] CtrComment on above:These are unconfirmed results and should not be used for legal purposes. Drug Cut-Off Concentration: AMPH 1000 ng/mL ALFREDO 200 ng/mL JAXON 200 ng/mL COCM 300 ng/mL OP 300 ng/mL PCP 25 ng/mL THC 20 ng/mLClarity Refractometry automated (U)ClearSelect Medical Specialty Hospital [facility] CtrCocaine Ql (U)NegativeSelect [facility]ty [facility] CtrColor (U)YellowSelect Medical Specialty Hospital [facility] CtrGlucose Auto test strip (U) [Mass/Vol]Normal mg/dLSelect Medical [facility]ty [facility] CtrHemoglobin Auto test strip Ql (U)[facility] CtrKetones (U) [Mass/Vol]NegativeSelect Medical Specialty Hospital - [facility] CtrLeukocyte esterase Auto test strip Ql (U)NegativeSelect Medical Specialty [facility] CtrNitrite Ql (U)[facility] CtrOpiates Ql (U)[facility] CtrpH (U)6.5 [pH]5.0-9.0[facility] Phencyclidine Ql (U)NegativeSelect Medical [facility]ty [facility] CtrProtein (U) [Mass/Vol] NegativeSelect [facility] CtrSpecific gravity (U) [Rel density]1.018 1.001-1.030[facility] CtrUrobilinogen (U) [Mass/Vol]Normal mg/dL [facility] Vital Signs Date TimeVital SignValuePerforming OnlilmhhxZujhrdrc20-09-2849 12:35-0400 Diastolic blood awuibgff56 mm[Hg]Nola Ramirez MD Work Phone: [facility]10-01-2025 12:35-0400 Heart rate70 /Hector Ramirez MD Work Phone: [phone]10-01-2025 12:35-0400 Respiratory rate16 /Hector Ramirez MD Work Phone: [facility]10-01-2025 12:35-0400 SaO2% (BldA) [Mass fraction]100 %Nola Ramirez MD Work Phone: [phone]10-01-2025 12:35-0400 Systolic blood xnlwjema639 mm[Hg]Nola Ramirez MD Work Phone: [phone]10-01-2025 11:18-0400 Body oaxoii817.02 cmNola Ramirez MD Work Phone: [phone]10-01-2025 11:18-0400 Body oywiqp00.91 kgNola Ramirez MD Work Phone: [phone]10-12-2022 13:44-0400 Blood Pressure LocationMichael NILL [facility]10-12-2022 13:44-0400Diastolic blood wvmatnkc04 mm[Hg]Ganga NILL [facility]10-12-2022 13:44-0400Heart rate 72 /minMichael NILL [facility]10-12-2022 13:44-0400 Respiratory rate16 /minMichael NILL [facility]10-12-2022 13:44-0400Systolic blood wxlwogsf192 mm[Hg]Ganga NILL [facility]04-16-2019 15:00-0400Body Qhdwdrxuhli55.8 [degF][facility]04-16-2019 15:00-0400BP Mfwakkuaf65 mm[Hg][facility] 03-07-2019 15:00-0400BP Deqsmrsw280 mm[Hg][facility]04-16-2019 15:00-0400Pulse (Heart Rate)78 /[facility]04-16-2019 15:00-0400Pulse Subpvlln06 %[facility]04-16-2019 15:00-0400Respiratory Rate16 /[facility] CtrBody weightDouglas [facility] CtrNEGATED: Highlighted rowBMI (Body Mass Index)Nola [facility] NEGATED: Highlighted ednaHeightfede [facility] Encounters Encounter DateEncounter TypeCare ProviderFacilityStart: 13-73-8437ufurikxjdv Nola eLiva JamesFacility:[facility] Hospitaltart: 08-22-2025 End: 26-56-5756bfvlwwfsrhTltcvnj M JamesFacility:[facility] Start: 18-55-1820Uny-patient / Non-visitCatherine L Ly DO-[facility] Work Phone: Start: 91-13-2975Attzligxmt Robert Walker MDEAST ADAMS RURAL HEALTHCARE CredibleStart: 07-02-2025 End: 59-41-9514cuxkshnzcbBSGTIENewark Hospital Start: 04-19-2025 End: 34-60-3168gbqjlqaryoFyfoumu M Hoy MD Work Phone: [facility] Work Phone: Start: 04-19-2025 End: 29-55-4758Jjghpjqz ReferredNola Ramirez MD Work Phone: [phone] [place] [address] Ctr-LAB Path Spec [facility] HospStart: 78-60-2865Jovnxsumxi Doris Ramirez MD Work Phone: [facility] Ctr- CredibleStart: 10-21-2022 End: 93-03-3128ghendpfaekCfglldl R NILLFacility:[facility] BellevueStart: 10-21-2022 End: 94-71-8161Shvccqc encounter procedureMichael R NILL General Surgery Nill/Said Momo Start: 01-97-5023Yrzyjmoqi for preprocedural laboratory examinationDR GANGA Kiserevue HospitalStart: 10-07-2022 End: 34-92-6352uczyneilwiNT MICHAEL NILLFacility:X9Bypkv: 10-03-2022 End: 49-86-9142tvbbcirmxvOE GANGA CAITFacility:V1Ewnxm: 10-03-2022 End: 84-41-1399Rtgorpmeq for preprocedural laboratory examinationDR GANGA CAIT Facility:X8Ilyyf: 09-02-2022 End: 79-51-8874ddwqydwodeCwtokqf R NILLFacility:[facility] BellevueStart: 09-02-2022 End: 35-33-9623Bwadjlc encounter procedureMichael R NILL General Surgery Nill/[facility]aid [place] Start: 08-11-2022 End: 49-52-3105gvtrvsihnaBL NOLA HOYFacility:R5Aqcka: 08-06-2022 End: 80-95-7518dvbxrlkipvYU Nicolas KirkFacility:J8Hitnb: 07-28-2022 End: 01-51-1154ywffhiipfrSMPZAKY HOYFacility:UTMCStart: 07-24-2022 End: 44-42-9304detfhisnvoSO JESSIE TOLENTINOELFacility:M9Tdofc: 07-20-2022 End: 64-68-2034eefhcbzuomYL CONSUELO Ellsworth WESTFacility:J7Xgayq: 07-10-2022 End: 59-74-9519bigekkggyhXHKNOAF BOESFacility:F1Gzije: 06-04-2022 End: 05-64-5713eyygmrgmjrTM CONSUELO V WESTFacility:E5Smrnd: 06-02-2022 End: 10-38-3015rrzguyxkioUF CONSUELO V WESTFacility:T6Mqktm: 14-70-2489acivumgzejXW NOLA HOYFacility:D7Ucseu: 05-06-2022 End: 96-90-4094errupkkmpiJI NOLA HOYFacility:F0Cztnq: 04-30-2022 End: 30-82-9437umulcpngzrVG NOLA HOYFacility:Z1Vspku: 73-93-1378vyvcfvrschIL NOLA HOYFacility:H1Iptrk: 03-19-2022 End: 56-07-5148ycgqnoxotxPS DOCTOR MISCFacility:I9Jlrjn: 03-15-2019 End: 75-71-7491Bvaikix encounter procedureW[facility] Start: 03-07-2019 End: 72-95-8369Qmmoigezu to day surgeryWills [facility] Start: 02-01-2018 End: 18-87-1000Izmgyxnyf department patient visitWills [facility] Hospital [facility] Start: 06-07-2014 End: 26-51-4564Jobyonjgec and management of inpatientW[facility] Start: 06-17-2011 End: 00-53-6012Qsnqtnrslm and management of inpatientW[facility] Start: 05-01-2011 End: 59-48-9632Ytdnjwbvpe and management of inpatientW[facility] Start: 05-27-2010 End: 65-33-6349Emsgwitlsb RecurringW[facility] Start: 05-22-2010 End: 16-75-2834Foxgnlbcso [facility]DoC[facility] Start: 04-22-2010 End: 54-77-9001Pvuovpunvb [facility]DoC[facility] Start: 03-22-2010 End: 83-35-0766Ywpnsfmdns [facility]Do[facility] Start: 02-20-2010 End: 58-90-5485Krxhzubndr [facility]ringDoC[facility] Start: 01-20-2010 End: 27-81-6867Ogrqeocmhy RecurringDoug[facility] Start: 01-20-2010 End: 74-14-0716Srnzucvqcd [facility] Start: 01-16-2010 End: 75-03-8220Vptzfpvpun [facility] Start: 12-23-2009 End: 30-00-1905Cwdsfchutf [facility] Start: 11-23-2009 End: 52-45-8256Thmmfgmqzd [facility] Start: 11-22-2009 End: 22-67-5518Ubhknycydc [facility] Start: 10-22-2009 End: 00-59-9842Ntikzozses [facility] Start: 10-15-2009 End: 64-59-4054Wobsjbfvpd [facility] Start: 09-22-2009 End: 37-41-7160Xihcohbnst [facility] Start: 08-22-2009 End: 87-32-0961Rdsgdulpje [facility] Start: 08-06-2009 End: 91-05-8088Yidexhyhiw [facility] Start: 07-02-2009 End: 63-87-3051Obxsnjfnio [facility] Start: 06-04-2009 End: 53-17-3930Gxcxptadgo [facility] Start: 04-22-2009 End: 30-64-7962Rgtuynruyp [facility] Start: 03-22-2009 End: 61-46-6603Cwauhxyfuu [facility] Start: 02-20-2009 End: 34-87-4870Cfwpgwuiac [facility] Start: 02-10-2009 End: 54-70-4682Cftnbcmse department [facility]Do[facility] Start: 01-21-2009 End: 93-74-3037Nuikwixxgv [facility] Start: 12-24-2008 End: 43-89-7110Qtijyzihzn [facility] Start: 11-23-2008 End: 02-07-1216Thqixmlfog [facility] Start: 10-22-2008 End: 90-59-6960Guqimwovmk [facility] Start: 09-22-2008 End: 03-97-9293Ywqdxqxsnw [facility] Start: 08-22-2008 End: 43-78-6361Snzxpzaprv [facility]Doug[facility] Start: 07-24-2008 End: 49-14-5862Kkxwufnidl [facility] Start: 07-02-2008 End: 97-03-1268Mzrdsexowc and management of inpatientDouglas [facility] Start: 06-22-2008 End: 61-32-9098Gryimvlmoc [facility] Start: 06-05-2008 End: 73-52-5358Wihkjyexne and management of inpatientDouglas [facility] Start: 05-29-2008 End: 34-87-2894Ikkqxjuupj [facility] Start: 04-24-2008 End: 69-83-1933Ijpljvwytb [facility] Start: 03-22-2008 End: 22-07-9919Uyvyjuarua [facility] Start: 02-21-2008 End: 08-00-1287Paxbrkutga [facility] Start: 02-14-2008 End: 89-94-1806Zuwrerdeck [facility] Start: 12-23-2007 End: 70-59-8018Mspbcmlkdm [facility] Start: 12-20-2007 End: 39-41-6217Fpcwrkrzop and management of inpatientDougPacific [facility] Start: 11-22-2007 End: 74-91-9930Abzcgfkpwq [facility] Start: 10-22-2007 End: 41-82-7993Gmfhfikkxh [facility] Hospital[facility] Start: 09-22-2007 End: 21-84-3541Qgvvdsuqyn [facility]ringugSSM [facility] Start: 08-22-2007 End: 64-17-2573Lmlohwwxxw [facility] Start: 07-23-2007 End: 88-98-0546Svidwnktyd [facility] Start: 06-22-2007 End: 82-94-4234Waqzqojmee [facility] Start: 05-22-2007 End: 06-39-2134Therbwkika [facility] Start: 04-28-2007 End: 40-73-2931Qdhezkhvi department [facility] visitW[facility] Start: 04-28-2007 End: 28-62-7774Hpfsdjd encounter procedureDougSSM Health [facility] Start: 04-28-2007 End: 04-76-0655Tldyhhrwdb [facility] Start: 03-01-2002 End: 63-00-7458Kjguduxrkk [facility] Start: 03-01-2002 End: 10-74-5067Owebklmicj and management of inpatientDouglas [facility] Start: 03-24-2001 End: 68-15-5570Ezaoqlimra [facility]ringDougSSM [facility] Start: 03-24-2001 End: 73-71-9381Fhknqraobl and management of inpatientDouglas [facility] Start: 09-27-1996 End: 30-94-1211Naednjnquv and management of inpatientDoSelect [facility] Start: 08-19-1995 End: 67-62-2789Yzzbdpdyl department patient visitDoSelect [facility] Start: 09-27-1993 End: 95-37-5680Coahknx encounter procedureDoSelect [facility] Procedures DateProcedureProcedure DetailPerforming ClinicianStart: 10-07-2022 EsophagogastroduodenoscopyMichael NILL Start: 91-08-8249Zwdwwih catheterizationMichael NILL Start: 19-89-0078Cctwhp repairMichael NILL Start: 58-13-6837Lsznelduvau of shoulderA Olexa Nolan Start: 16-34-0335Onitkdzzn hysterectomyMichael NILL Arthroscopy of shoulderMichael NILL CholecystectomyMichael NILL Ectopic (disorder)Ganga NILL Exploratory laparotomyMichael NILL History of subtotal thyroidectomyMichael NILL History of tonsillectomyMichael NILL Partial resection of colonMichael NILL Plan of Treatment DateCare ActivityDetailAuthorStart: 28-12-4377DsrinhhcaPomerene Hospital Start: 68-31-6505Keuxovnn identified in Urine by CultureUrine UC Healthtart: 63-53-7392UfzroAdena Health SystemPatient EducationGastritis - Discharge instructions Know your Meds [facility] Work Phone: Payers DatePayer CategoryPayerPolicy [id number] [id number] [id number]-[id number] [id number] 2.0.1.908655.3.57[id number] 2.0.1.732948.3.57[id number] 2.0.1.968607.3.579.2.61141-43-5298Nhmunnj7302630 2.0.1.007735.3.579.[id number] 2.0.1.679474.3.579.[id number] 2.0.1.858971.3.579.2.92936-80-6758Gsxeplq0744547 2.840.1.437812.3.579.[id number] 2.0.1.023084.3.579.2.32969-83-9755Okmjfkm8321102 2.840.1.960722.3.579.2.77540-93-8120Igjogdr7816064 2.840.1.468503.3.579.2.18742-21-0901Sezrzmp7655090 2.16.840.1.738310.3.579.2.63435-11-2879Kooxbdx3221070 2.16.840.1.997092.3.579.2.08885-96-2557Pidtnap7823599 2.16.840.1.639010.3.579.[id number] 2.16.840.1.976994.3.579.2.65986-30-6577Yqmynxa0056155 2.16.840.1.411495.3.579.2.30321-21-7615Pkzfaad3943630 2.16.840.1.740817.3.579.[id number] 2.16.840.1.041601.3.579.2.85533-37-4616Nzjkqou02128584 2.16.840.1.403963.3.579.2.09548-81-2947Pyouinj04289099 2.16.840.1.31[id number] h14czwmv-818t-603g-x8wg-4ik5e5sg72r6Ftmnedl94158741 2.840.1.801882.3.579.2.346Pkqcrtr24727403 2.840.1.325196.3.579.2.531 Ymxpccm11367816 2.16840.1.808131.3.579.2.531 Social History DateTypeDetailFacilityStart: 09-02-2022 End: 96-31-6296Urzfihc smoking statusEx-smoker (finding)[facility] Tobacco smoking statusNeverGeneral Surgery BellevueSex Assigned At BirthFemal [facility] Start: 27-96-2016LvvHuwuus (finding)[facility] Hospitaltart: 06-79-8935Rqi Assigned At [facility] Medical Equipment Procedure CodeEquipment CodeEquipment Original TextEquipment IdentifierDates Shoulder arthroscopyANCHOR 5.5 SWIVELOCKFDAStart: 25-13-5405Gkblnnuh arthroscopy ANCHOR 5.5 SWIVELOCKFDAStart: 71-87-4974UKIWMU REPAIR, ROBOT ASSISTED Ganga PEARCE MD 12/05/20 Non Biological Abdomen{01}[id number]{17}[id number]{10}[id number] FDAStart: 12-05-2020 Functional Status DkwsTttkefouvqNfdbpxFtbigxdb66-41-9587Fszolxtigc StatusN/AGeneral Surgery [place] Progress note 07-02-2025 Note Date & JvxwFdhbVkobfnyb90-89-7499 NoteUT Cardiology - [facility] Kaitlynn Medley is a 65 y.o. year old [...] Alcohol use: Not Currently Drug use: Never CASSANDRA Ebony is seen in follow-up. She is [...] visit. She denies tyrese (more content not included)...[facility] Clinical Note 10-07-2022 Note Date & LmgtKmyfTlswagvk30-18-1139 NoteOPERATIVE NOTE OPERATION DATE: 10/07/2022 PREOPERATIVE DIAGNOSIS: Dysphagia [...] room in good condition. CC: Nola Ramirez M.D.[facility] Clinical Note 09-02-2022 Note Date & UlqsVkzeJoviychx89-92-8621 NoteChief Complaint consultation for abnormal barium swallow HPI [...] Known Allergies Social Hi (more content not included)...[facility] HospitalComment on above:Result Comment: Electronically Signed By: CAIT LEHMAN, Ganga Valencia\Date and Time Signed: 09/02/22 15:31 EDT Evaluation + Plan note Note Date & TypeNoteFacilityEvaluation + Plan note No data available for this section [facility] Evaluation note Note Date & TypeNoteFacilityEvaluation noteNo assessment information available [facility] Work Phone: Hospital Discharge instructions Note Date & TypeNoteFacilityHospital Discharge instructions No data available for this section [facility] Discharge instructions Note Date & TypeNoteFacilityHospital Discharge instructions Additional Instructions DISCHARGE INSTRUCTIONS FOR UPPER ENDOSCOPY WHAT TO EXPECT: - You may feel full, gassy or cramping after your procedure. In some cases, this may be from a few hours to a day. Walking may help relieve the discomfort. - Your throat may feel sore today from the scope that the doctor passed through your throat to visualize your stomach. Take a throat lozenge or suck on ice to ease the discomfort. - You may notice some streaks of blood in your sputum if the doctor has taken a biopsy. - You should begin to recover from anesthesia within 1 hour of the procedure, however may feel groggy for the next 24 hours. DO's AND DON'Ts: - Call your doctor right away if you have a hard abdomen, severe pain, vomiting or if you cough up large amounts of blood. - Call your doctor if you develop any rashes, hives or difficulty breathing. - If you take 81 mg aspirin for your heart it is safe to resume this medication. - If you take other blood thinner medications your doctor will instruct you when these can safely be resumed. - Do NOT drive for 24 hours. - Do NOT operate machinery such as power tools, [employer] mowers, NovImmunewers, sewing machines, etc. for 24 hours. - Avoid alcoholic beverages and drugs for allergies, nerves, or sleep. - Do NOT stay alone. Do NOT leave your child unattended. - Do NOT make important personal or business decisions or sign any legal documents. - Eat solid foods and drink liquids in smaller amounts than usual until normal appetite returns. If you should experience an upset stomach, liquids high in sugar content (soda, Cipriano-Aid, non-acid juices) are recommended. - Do NOT smoke. - Do take it easy today. You need not stay in bed, but avoid strenuous activities such as jogging or working out. FOLLOW UP & RECOMMENDATIONS: -Please call the office and make a follow up appointment to see me if symptoms persist -Notify the doctor if you have any problems. -Follow up with PCP. -Office number [phone]. [facility] Work Phone: Progress note Note Date & TypeNoteFacilityProgress note No data available for this section [facility] [place] Reason for referral (narrative) Note Date & TypeNoteFacilityReason for referral (narrative)No reason for referral information availableSelect [facility] Work Phone: Summary Purpose Family History No Family History Records Found Relationship Condition Age at Onset Recorded Date/T hari mother Diabetes mellitus Unknown fatherHeart diseaseUnknown Advance Directives No Advanced Directives Records Found Advance Directive Response Recorded Date/ Time Advance Directives Yes February 01, 018 1:31pm Chief Complaint and Reason for Visit Chief Complaint Admit Date BH July 11, 2025 8: 31am esophageal stricture August 22, 2025 1 1:03am Additional Source Comments INFORMATION SOURCE (unrecogn ized section and content) DATE CREATED AUTHOR 07/31/2022 [facility] DATE CREATED AUTHOR AUTHOR'S ORGANIZ ATION 10/14/2022 [facility] DATE CREATED AUTHOR AUTHOR'S ORGANIZ ATION 10/22/2022 [facility] DATE CREATED AUTHOR AUTHOR'S ORGANIZ ATION 07/03/2025 [facility] DATE CREATED AUTHOR AUTHOR'S ORGANIZ ATION 08/31/2025 [facility] Patient Care team informatio n (unrecognized section and content) Team Status: Active Member Role Status Dates Nola Ramirez MD Primary Care Provider Active Start: February 26, 2025 Anthony Dudley ProviderActiveStart: February 26, 2025 Team Status: Inactive Member Role Status Dates Nola Ramirez MD Attending Provider Active Sta rt: April 19, 2025 End: April 19, 2025 Team Status: Active Member Role Status Dates Nola Ramirez MD Primary Care Provider Active Team Status: Active Member Role Status Dates Nola Ramirez MD Primary Care Provider Active Start: July 11, 2025 Anthony Dudley ProviderActiveStart: July 11, 2025 Team Status: Active Member Role Status Dates Candi Dia DO Attending Provider Active St art: August 22, 2025 Candi Dia DOOther ProviderActiveStart: August 22, 2025 Yajaira Estrada Care ProviderActiveStart: August 22, 2025 Goals (unrecognized section and content) Goals [...] BE BASED ON THE PRIMARY CLINICAL RECORDS. [facility]. provides no warranty or guarantee of the accuracy or completeness of information in this document.
[2025-09-19 05:54] LABS: Hematocrit 43.8 % (36.0-48.0); Hemoglobin 14.1 g/dL (12.0-16.0); Immature Granulocytes Abs Auto 0.06 10^3/uL (0.00-0.03); Immature Granulocytes Pct Auto 0.6 % (0.0-0.5); Lymphocytes Absolute Auto 2.6 10^3/uL (1.2-3.8); Mean Corpuscular HGB Conc 32.2 g/dL (29.9-35.2); Mean Corpuscular Hemoglobin 27.4 pg (26.7-34.0); Mean Corpuscular Volume 85.2 fL (81.0-99.0); Platelet Count 441 10^3/uL (150-450); Red Blood Count 5.14 10^6/uL (4.20-5.40); White Blood Count 9.7 10^3/uL (4.0-11.0)
--- OUTSIDE RECORDS SUMMARY | 2025-09-19 05:54 | XMS_ITS | Patient Health Record ---
Author Organization [facility] in [place] Address [address] [place] [address] Care Team Providers Care Clinical Resource Manager Name Role Phone Curtis Valencia Primary Care Provider Allergies Allergen (clinical drug ingredient) Drug/Non Drug Allergy documented on EMR Reaction Allergy Type Onset Date Status primidone Primidone diarrhea Drug Allergy Active Results Component Value Reference Range Notes CBC AUTO DIFF Reviewed date:02/10/2025 11:54:45 AM Interpretation: Performing Lab: Notes/Report: [facility] , White Blood Count 14.3 4.0-11.0 10 3/uL Red Blood Count5.374.20-5.40 10 6/rHDumljkuyll63.612.0-16.0 g/qPQbscjnzzsa05.9 36.0-48.0 %Mean Corpuscular Oiakpa66.681.0-99.0 fLMean Corpuscular Hemoglobin 27.226.7-34.0 pgMean Corpuscular HGB Conc32.529.9-35.2 g/dLRed Cell Distribution Width14.711.0-15.0 %Platelet Rrggm390167-752 10 3/uLMean Platelet Volume8.39.5- 13.5 fLNeutrophils Percent Auto68.943.0-75.0 %Lymphocytes Percent Auto21.820.5- 60.0 %Monocytes Percent Auto6.81.7-12.0 %Eosinophils Percent Auto0.40.9-7.0 % Basophils Percent Auto0.80.2-2.0 %Immature Granulocytes Pct Auto1.30.0-0.5 % Neutrophils Absolute Auto9.81.4-6.5 10 3/uLLymphocytes Absolute Auto3.11.2-3.8 10 3/uLMonocytes Absolute Auto1.00.3-0.8 10 3/uLEosinophils Absolute Auto0.10.0- 0.7 10 3/uLBasophils Absolute Auto0.10.0-0.1 10 3/uLImmature Granulocytes Abs Auto0.190.00-0.03 10 3/uLPerforming Lab:see noteML - [facility] LBMM tomosynthesis screening BI Reviewed date:03/06/2025 05:54:00 PM Interpretation: Performing Lab: Notes/Report: Source Facility: [facility]-[address] [place] [address] [place] [address] Mammography Report Signed Patient: EBONY CARPENTER MR#: [id number] : 1960 Acct:[id number] Age/Sex: 64 / F ADM Date: 03/06/25 Loc: MAMMO Attending Dr: Nola Valencia M.D. Ordering Physician: Nola Valencia M.D. Results: Date of Service: 03/06/25 Follow Up: Procedure(s): MM tomosynthesis screening BI Accession Number(s): [id number] cc: Nola Valencia M.D. Patient Name: EBONY CARPENTER MR#: [id number] : 1960 Exam Date: 03/06/2025 Ordering Doctor: DR Nola Valencia . RADIOLOGY REPORT PROCEDURE: MM SCREENING BI COMPARISON: MG MAMM SCREEN ZEKE W CAD, 02/15/2019. MG MAMM SCREEN ZEKE W CAD, 01/28/2018. MG MAMM ZEKE SCRN W CAD DIG, 07/23/2015. MG MAMM ZEKE SCRN W CAD DIG, 04/12/2013. INDICATIONS: Screening Calculator Name NCI Breast Cancer Risk Assessment Tool 5 Year Breast Cancer Risk 1.80% Lifetime Breast Cancer Risk 6.60% Personal Breast Cancer No Personal Ovarian Cancer No Treatments None Family Cancers Grandfather-maternal with bone cancer at age 60. LOCATION: [facility] BREAST COMPOSITION: There are scattered areas of fibroglandular density. FINDINGS: DIAGNOSTIC CATEGORY 1--NEGATIVE. RIGHT BREAST: No significant suspicious finding. LEFT BREAST: No significant suspicious finding. RECOMMENDATIONS: ROUTINE MAMMOGRAM AND CLINICAL EVALUATION IN 12 MONTHS. PLEASE NOTE: A NORMAL MAMMOGRAM DOES NOT EXCLUDE THE POSSIBILITY OF BREAST CANCER. A CLINICALLY SUSPICIOUS PALPABLE LUMP SHOULD BE BIOPSIED. Dictated by: Gerardo Neal DO on 03/06/2025 at 16:14 Approved by: Gerardo Neal DO on 03/06/2025 at 16:16 Dictated By: Gerardo Neal M.D. Signed By: 03/06/251616 DD/ 15 TD/TT: Hr Administrator:XR acute abdomen series Reviewed date:04/19/2025 06:07:26 PM Interpretation: Performing Lab: Notes/Report: Source Facility: [place] [address] XRay Report Signed Patient: EBONY CARPENTER MR#: [id number] : 1960 Acct:[id number] Age/Sex: 65 / F ADM Date: 04/19/25 Loc: INF Attending Dr: Nola Valencia M.D. Ordering Physician: Nola Valencia M.D. Date of Service: 04/19/25 Procedure(s): XR acute abdomen series Accession Number(s): [id number] cc: Nola Valencia M.D. [place] [address] Patient Name: EBONY CARPENTER MRN: [id number] date: 1960 Sex: F Assigned Patient Location: [facility] Current Patient Location: INF Accession/Order Number: [id number] Exam Date: 04/19/2025 11:31 Report Date: 04/19/2025 11:35 At the request of: NOLA VALENCIA MD Procedure: XR acute abdomen series ACUTE ABDOMEN SERIES WITH PA CHEST: CLINICAL HISTORY: Vomiting and diarrhea for the past 4 days COMPARISON: Chest x-ray 06/04/[address] abdomen 11/06/2020 The chest film shows continued slight elevation right hemidiaphragm. There is basilar atelectasis and/or scarring. No sizable effusion or pneumothorax. The cardiac and basilar contours are stable. Supine and upright views of the abdomen and pelvis demonstrate air and moderate stool along the length of the colon. There is no small bowel dilatation, free air or air-fluid levels. No soft tissue masses or suspect renal calculi are seen. There is levoscoliotic curvature and degenerative change at the spine. Hemostasis clips are visualized at the right upper quadrant and pelvis. XR/XR acute abdomen series IMPRESSION: CHRONIC BIBASILAR PARENCHYMAL CHANGES. MODERATE COLONIC STOOL. NO ACUTE ABDOMINAL FINDINGS. Impression dictated by: Sona Miles M.D. 04/19/2025 11:35 AM Dictation Location: [place] [address] Electronically authenticated by: [id number] Y Date: 04/19/2025 11:35 Dictated By: Sona Miles M.D. 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: : 1960 Requested By: [id number] Order Number: [id number] Reading MD: Measurements Intervals Palmer Rate: 41 P: 39 DE: 182 QRS: 62 QRSD: 94 T: 26 QT: 412 QTc: 349 Interpretive Statements 1130 Sinus bradycardia 8305 Short QTc interval 9150 abnormal ECG No previous ECG available for comparison Dictated By: Molly Desai Signed By: DD/ 0542 TD/TT: Hr Administrator:INSULIN Reviewed date:08/05/2025 01:05:55 PM Interpretation: Performing Lab: Notes/Report: [facility] ,Bgfympc52.82.6-24.9 uIU/mL Performed at: [address] [id number] Heel Stiffener: Hubert Logan PhD, Phone: [phone] Performing Lab:see [facility] LBGLYCOHEMOGLOBIN A1C Reviewed date:08/05/2025 01:05:55 PM Interpretation: Performing Lab: Notes/Report: [facility] ,Glycohemoglobin A1C5.34.5-6.2 % ADA RECOMMENDED LIMIT 4.0 - 6.0 ADA THERAPEUTIC TARGET < 7.0 ACTION SUGGESTED > 7.0 Estimated Average Zmstamp130Lpboifcojg Lab:see [facility], [facility] - [facility] LB [place] (Eskalith(R)), Serum Reviewed date:04/22/2025 04:42:04 PM Interpretation: Performing Lab: Notes/Report: [facility] ,[place] (Eskalith(R)), Serum<0.10.5-1.2 mmol/L A concentration of 0.5-0.8 mmol/L is advised for long-term use; concentrations of up to 1.2 mmol/L may be necessary during acute treatment. Verified by repeat analysis Detection Limit = 0.1 <0.1 indicates None Detected Performed at: [address] [id number] Heel Stiffener: Hubert Logan PhD, Phone: [phone] Performing Lab:see [facility] LBLithium (Eskalith(R)), Serum Reviewed date:02/20/2025 04:42:41 PM Interpretation: Performing Lab: Notes/Report: [facility] ,[place] (Eskalith(R)), Serum1.00.5-1.2 mmol/L A concentration of 0.5-0.8 mmol/L is advised for long-term use; concentrations of up to 1.2 mmol/L may be necessary during acute treatment. Detection Limit = 0.1 <0.1 indicates None Detected Performed at: - [facility] [address] [id number] Heel Stiffener: Hubert Logan PhD, Phone: [phone] Performing Lab:see noteLC - [facility] LBCREATININE Reviewed date:02/20/2025 04:42:41 PM Interpretation: Performing Lab: Notes/Report: [facility] ,Creatinine0.890.55-1.02 mg/dLEstimated GFR ( Yazmin>60>=60 mL/min/1.73m 2Estimated GFR (Non- Virgne>60>=60 mL/min/1.73m 2Performing Lab:see noteML - [facility] LBCBC AUTO DIFF Reviewed date:02/20/2025 04:42:41 PM Interpretation: Performing Lab: Notes/Report: [facility] ,White Blood Count14.84.0-11.0 10 3/uLRed Blood Count5.334.20-5.40 10 6/uL Lhtqvmcspf13.712.0-16.0 g/zDKbzskzjdvc61.936.0-48.0 %Mean Corpuscular Exoadf02.1 81.0-99.0 fLMean Corpuscular Flemdortoh21.626.7-34.0 pgMean Corpuscular HGB Conc 32.029.9-35.2 g/dLRed Cell Distribution Width14.711.0-15.0 %Platelet Khqoa948 150-450 10 3/uLMean Platelet Volume8.59.5-13.5 fLNeutrophils Percent Auto69.7 43.0-75.0 %Lymphocytes Percent Auto21.320.5-60.0 %Monocytes Percent Auto6.61.7- 12.0 %Eosinophils Percent Auto0.30.9-7.0 %Basophils Percent Auto1.20.2-2.0 % Immature Granulocytes Pct Auto0.90.0-0.5 %Neutrophils Absolute Auto10.31.4-6.5 10 3/uLLymphocytes Absolute Auto3.21.2-3.8 10 3/uLMonocytes Absolute Auto1.00.3- 0.8 10 3/uLEosinophils Absolute Auto0.00.0-0.7 10 3/uLBasophils Absolute Auto0.2 0.0-0.1 10 3/uLImmature Granulocytes Abs Auto0.140.00-0.03 10 3/uLPerforming Lab:see noteML - [facility] LBBUN Reviewed date:02/20/2025 04:42:41 PM Interpretation: Performing Lab: Notes/Report: [facility] ,Blood Urea Mizcnmrv69.07.0-18.0 mg/dLPerforming Lab:see noteML - [facility] LBVITAMIN D 25 [place] Reviewed date:02/10/2025 11:54:46 AM Interpretation: Performing Lab: Notes/Report: [facility] ,Vitamin D24.9 <20 ng/mL Vit D deficient 20-<30 ng/mL Vit D insufficient 30-100 ng/mL Vit D sufficient >100 ng/mL Potential Toxicity Performing Lab:see noteML - [facility] LBTSH Reviewed date:02/10/2025 11:54:46 AM Interpretation: Performing Lab: Notes/Report: [facility] ,Thyroid Stimulating Hormone2.2530.358-3.740 uIU/mLPerforming Lab:see note - [facility] LBT4 Reviewed date:02/10/2025 11:54:46 AM Interpretation: Performing Lab: Notes/Report: [facility] ,T4 Thyroxine7.304.80-13.90 ug/dLPerforming Lab:see noteML - [facility] LBPROF 14(COMP METB) Reviewed date:02/10/2025 11:54:46 AM Interpretation: Performing Lab: Notes/Report: [facility] ,Iqwrba500147-331 mmol/LPotassium4.23.5-5.1 mmol/ORddmksni43394-526 mmol/LCarbon Axuaqrk34.321.0-32.0 mmol/LAnion Gap12.9Tjjgall03063-847 mg/dLBlood Urea Hhjrlofh16.07.0-18.0 mg/dLCreatinine1.090.55-1.02 mg/dLEstimated GFR ( Yazmin>60>=60 mL/min/1.73m 2Estimated GFR (Non- Ame50>=60 mL/min/1.73m 2 BUN Creatinine Ratio24.9Zbrqaai6.88.5-10.1 mg/dLBilirubin Total0.30.2-1.0 mg/dL Aspartate Amino Bjswlcwqbvw4240-42 U/LAlanine Wkanpqdakhyszyuw2045-08 U/L Alkaline Vrssclaxpnp49582-035 U/LTotal Protein7.66.4-8.2 g/dLAlbumin Level3.7 3.4-5.0 g/dLGlobulin3.9Albumin Globulin Ratio0.9Performing Lab:see noteML - [facility] LBLIPID PROFILE Reviewed date:02/10/2025 11:54:46 AM Interpretation: Performing Lab: Notes/Report: [facility] ,Ogejyultlgapt918<=150 mg/eRItzoztbnpbk876<=200 mg/dLHDL Tmfigadnrdf2887-68 mg/dL > or =60 mg/dl - LOW CARDIOVASCULAR RISK <40 mg/dl - HIGH CARDIOVASCULAR RISK LDL Cholesterol Nxughrvsiy05.0 <100 mg/dl OPTIMAL 100-129 mg/dl NEAR OR ABOVE OPTIMAL 130-159 mg/dl BORDERLINE HIGH 160-189 mg/dl HIGH >190 mg/dl VERY HIGH VLDL BQEEBIXRRYC12.8Chol HDL Ratio4.1 3.3 - 4.4 LOW RISK 4.4 - 7.1 AVERAGE RISK 7.1 - 11.0 MODERATE RISK >11.0 HIGH RISK Performing Lab:see note - [facility] LBGLYCOHEMOGLOBIN A1C Reviewed date:02/10/2025 11:54:46 AM Interpretation: Performing Lab: Notes/Report: [facility] ,Glycohemoglobin A1C5.64.5-6.2 % ADA RECOMMENDED LIMIT 4.0 - 6.0 ADA THERAPEUTIC TARGET < 7.0 ACTION SUGGESTED > 7.0 Estimated Average Yslxrlk679Qdtetjxbjn Lab:see noteML - [facility] LB FREE T3 Reviewed date:02/10/2025 11:54:46 AM Interpretation: Performing Lab: Notes/Report: [facility] ,Free T32.452.18-3.98 pg/mLPerforming Lab:see noteML - [facility] LB [place] (Eskalith(R)), Serum Reviewed date:10/11/2024 07:54:38 AM Interpretation: Performing Lab: Notes/Report: [facility] ,[place] (Eskalith(R)), Serum0.60.5-1.2 mmol/L A concentration of 0.5-0.8 mmol/L is advised for long-term use; concentrations of up to 1.2 mmol/L may be necessary during acute treatment. Detection Limit = 0.1 <0.1 indicates None Detected Performed at: [facility] Lab[address] [id number] Heel Stiffener: Hubert Logan PhD, Phone: [phone] Performing Lab:[facility] LBCREATININE Reviewed date:10/10/2024 08:30:44 PM Interpretation: Performing Lab: Notes/Report: [facility] ,Creatinine0.940.55-1.02 mg/dLEstimated GFR ( Yazmin>60>=60 mL/min/1.73m 2Estimated GFR (Non- Ame60>=60 mL/min/1.73m 2Performing Lab:see note - [facility] LBBUN Reviewed date:10/10/2024 08:30:44 PM Interpretation: Performing Lab: Notes/Report: [facility] ,Blood Urea Xhviclwq47.07.0-18.0 mg/dLPerforming Lab:see note - [facility] LBLIPASE Reviewed date:03/14/2025 07:27:36 PM Interpretation: Performing Lab: Notes/Report: [facility] ,Fgkjqb92.016.0-77.0 U/LPerforming Lab:see note - [facility] LB AMYLASE Reviewed date:03/14/2025 07:27:36 PM Interpretation: Performing Lab: Notes/Report: [facility] ,Ywliikm6283-877 U/LPerforming Lab:see note - [facility] LBCOVID- 19, Flu A+B IH Reviewed date:08/05/2025 01:05:55 PM Interpretation: Performing Lab: Notes/Report: COVIDnegFLU AnegFLU BnegControlpresentUA DIP NONAUTO WO MICRO (49601) - IN OFFICE Reviewed date:08/05/2025 01:05:55 PM Interpretation: Performing Lab: Notes/Report: COLORlight yellowCLARITYclearGLUCOSEnegBILIRUBINnegKETONEnegSPECIFIC GRAVITY 1.499CBDZGlfjCV4YNYSSCYsdxWJZDPUZLGQHOumgNQRJWDQmlpUXZRZHKFR ESTERASEnegTSH Reviewed date:08/05/2025 01:05:55 PM Interpretation: Performing Lab: Notes/Report: [facility] ,Thyroid Stimulating Hormone1.6050.358-3.740 uIU/mLPerforming Lab:see note - [facility] LBT4 Reviewed date:08/05/2025 01:05:55 PM Interpretation: Performing Lab: Notes/Report: [facility] ,T4 Thyroxine7.604.80-13.90 ug/dLPerforming Lab:[facility] LBPROF 14(COMP METB) Reviewed date:08/05/2025 01:05:55 PM Interpretation: Performing Lab: Notes/Report: [facility] ,Lzrbji085906-545 mmol/LPotassium4.03.5-5.1 mmol/DVkabeqsm70389-504 mmol/LCarbon Yrbskoq98.121.0-32.0 mmol/LAnion Gap10.4Ergudag75273-299 mg/dLBlood Urea Nitrogen9.07.0-18.0 mg/dLCreatinine0.730.55-1.02 mg/dLEstimated GFR ( Yazmin>60>=60 mL/min/1.73m 2Estimated GFR (Non- Virgen>60>=60 mL/min/1.73m 2BUN Creatinine Ratio12.3Wwhimsc8.38.5-10.1 mg/dLBilirubin Total0.50.2-1.0 mg/dL Aspartate Amino Pzbdzgcqxle8290-25 U/LAlanine Zuxgrmkszzaqeaju4190-51 U/L Alkaline Gqymlvlgkdz64768-723 U/LTotal Protein7.56.4-8.2 g/dLAlbumin Level3.5 3.4-5.0 g/dLGlobulin4.0Albumin Globulin Ratio0.9Performing Lab:see note - [facility] LBLIPID PROFILE Reviewed date:08/05/2025 01:05:55 PM Interpretation: Performing Lab: Notes/Report: [facility] ,Gqhuqwdaqwrpk221<=150 mg/yIPftcllajqto010<=200 mg/dLHDL Qglhrhymlvn5656-36 mg/dL > or =60 mg/dl - LOW CARDIOVASCULAR RISK <40 mg/dl - HIGH CARDIOVASCULAR RISK LDL Cholesterol Hbixidqgga32.0 <100 mg/dl OPTIMAL 100-129 mg/dl NEAR OR ABOVE OPTIMAL 130-159 mg/dl BORDERLINE HIGH 160-189 mg/dl HIGH >190 mg/dl VERY HIGH VLDL JDOTPTVWMIR00.8Chol HDL Ratio3.8 3.3 - 4.4 LOW RISK 4.4 - 7.1 AVERAGE RISK 7.1 - 11.0 MODERATE RISK >11.0 HIGH RISK Performing Lab:see noteML - [facility] LBFREE T3 Reviewed date:08/05/2025 01:05:55 PM Interpretation: Performing Lab: Notes/Report: [facility] ,Free T32.662.18-3.98 pg/mLPerforming Lab:see noteML - [facility] LB CBC AUTO DIFF Reviewed date:08/05/2025 01:05:55 PM Interpretation: Performing Lab: Notes/Report: [facility] ,White Blood Count14.14.0-11.0 10 3/uLRed Blood Count5.444.20-5.40 10 6/uL Mkfagtfxgd85.712.0-16.0 g/eQZffmhljauv07.436.0-48.0 %Mean Corpuscular Ujmlng09.5 81.0-99.0 fLMean Corpuscular Zxtdecdbda76.026.7-34.0 pgMean Corpuscular HGB Conc 32.429.9-35.2 g/dLRed Cell Distribution Width14.811.0-15.0 %Platelet Jvsbm860 150-450 10 3/uLMean Platelet Volume8.69.5-13.5 fLNeutrophils Percent Auto70.2 43.0-75.0 %Lymphocytes Percent Auto19.720.5-60.0 %Monocytes Percent Auto8.51.7- 12.0 %Eosinophils Percent Auto0.20.9-7.0 %Basophils Percent Auto0.90.2-2.0 % Immature Granulocytes Pct Auto0.50.0-0.5 %Neutrophils Absolute Auto9.91.4-6.5 10 3/uLLymphocytes Absolute Auto2.81.2-3.8 10 3/uLMonocytes Absolute Auto1.20.3-0.8 10 3/uLEosinophils Absolute Auto0.00.0-0.7 10 3/uLBasophils Absolute Auto0.10.0- 0.1 10 3/uLImmature Granulocytes Abs Auto0.070.00-0.03 10 3/uLPerforming Lab:see noteML - [facility] LBUrine Culture - [facility] Reviewed date:04/23/2025 09:24:34 PM Interpretation: Performing Lab: Notes/Report: [facility] ,Urine Culture - [facility]MCSee Below For Report Urine Culture - [facility] Testing performed at [facility] O:KLEBVA Isolated Urine Culture - [facility] [place] Count Organism: 1.1 Antibiotic Interpretation MIL Status Urine Culture - [id number] [place] [address] Urine Culture - [facility] Testing performed at [facility] O:KLEBVA Isolated Urine Culture - [facility] [place] Count Organism: 1.1 Antibiotic Interpretation MIL Status Urine Culture - [facility]MCSee Below For Report Urine Culture - [facility] Testing performed at [facility] O:KLEBVA Isolated Urine Culture - [facility] [place] Count Organism: 1.1 Antibiotic Interpretation MIL Status Urine Culture - FRMCSee Below For Report Urine Culture - [facility] Testing performed at [facility] O:KLEBVA Isolated Urine Culture - [facility] [place] Count Organism: 1.1 Antibiotic Interpretation MIL Status Urine Culture - [facility]>100,000 Urine Culture - [facility] Testing performed at [facility] O:KLEBVA Isolated Urine Culture - [facility] [place] Count Organism: 1.1 Antibiotic Interpretation MIL Status Urine Culture - FRMCSee Below For Report Urine Culture - [facility] Testing performed at [facility] O:KLEBVA Isolated Urine Culture - [facility] [place] Count Organism: 1.1 Antibiotic Interpretation MIL Status Urine Culture - FRMCAmikacin S F Urine Culture - [facility] Testing performed at [facility] O:KLEBVA Isolated Urine Culture - [facility] [place] Count Organism: 1.1 Antibiotic Interpretation MIL Status Urine Culture - FRMCAmoxicillin/Clavulanate S F Urine Culture - [facility] Testing performed at [facility] O:KLEBVA Isolated Urine Culture - [facility] [place] Count Organism: 1.1 Antibiotic Interpretation MIL Status Urine Culture - FRMCAztreonam S F Urine Culture - [facility] Testing performed at [facility] O:KLEBVA Isolated Urine Culture - [facility] [place] Count Organism: 1.1 Antibiotic Interpretation MIL Status Urine Culture - FRMCCeftazidime S F Urine Culture - [facility] Testing performed at [facility] O:KLEBVA Isolated Urine Culture - [facility] [place] Count Organism: 1.1 Antibiotic Interpretation MIL Status Urine Culture - FRMCCiprofloxacin S F Urine Culture - [facility] Testing performed at [facility] O:KLEBVA Isolated Urine Culture - [facility] [place] Count Organism: 1.1 Antibiotic Interpretation MIL Status Urine Culture - FRMCErtapenem S F Urine Culture - [facility] Testing performed at [facility] O:KLEBVA Isolated Urine Culture - [facility] [place] Count Organism: 1.1 Antibiotic Interpretation MIL Status Urine Culture - FRMCGentamicin S F Urine Culture - [facility] Testing performed at [facility] O:KLEBVA Isolated Urine Culture - [facility] [place] Count Organism: 1.1 Antibiotic Interpretation MIL Status Urine Culture - FRMCLevofloxacin S F Urine Culture - [facility] Testing performed at [facility] O:KLEBVA Isolated Urine Culture - [facility] [place] Count Organism: 1.1 Antibiotic Interpretation MIL Status Urine Culture - FRMCMeropenem S F Urine Culture - [facility] Testing performed at [facility] O:KLEBVA Isolated Urine Culture - [facility] [place] Count Organism: 1.1 Antibiotic Interpretation MIL Status Urine Culture - FRMCNitrofurantoin S F Urine Culture - [facility] Testing performed at [facility] O:KLEBVA Isolated Urine Culture - [facility] [place] Count Organism: 1.1 Antibiotic Interpretation MIL Status Urine Culture - FRMCTetracycline S F Urine Culture - [facility] Testing performed at [facility] O:KLEBVA Isolated Urine Culture - [facility] [place] Count Organism: 1.1 Antibiotic Interpretation MIL Status Urine Culture - FRMCTigecycline S F Urine Culture - [facility] Testing performed at [facility] O:KLEBVA Isolated Urine Culture - [facility] [place] Count Organism: 1.1 Antibiotic Interpretation MIL Status Urine Culture - FRMCTobramycin S F Urine Culture - [facility] Testing performed at [facility] O:KLEBVA Isolated Urine Culture - [facility] [place] Count Organism: 1.1 Antibiotic Interpretation MIL Status Urine Culture - FRMCAmpicillin/Sulbactam S F Urine Culture - [facility] Testing performed at [facility] O:KLEBVA Isolated Urine Culture - [facility] [place] Count Organism: 1.1 Antibiotic Interpretation MIL Status Urine Culture - FRMCCefazolin S F Urine Culture - [facility] Testing performed at [facility] O:KLEBVA Isolated Urine Culture - [facility] [place] Count Organism: 1.1 Antibiotic Interpretation MIL Status Urine Culture - FRMCCefepime S F Urine Culture - [facility] Testing performed at [facility] O:KLEBVA Isolated Urine Culture - [facility] [place] Count Organism: 1.1 Antibiotic Interpretation MIL Status Urine Culture - FRMCCeftriaxone S F Urine Culture - [facility] Testing performed at [facility] O:KLEBVA Isolated Urine Culture - [facility] [place] Count Organism: 1.1 Antibiotic Interpretation MIL Status Urine Culture - FRMCCefuroxime S F Urine Culture - [facility] Testing performed at [facility] O:KLEBVA Isolated Urine Culture - [facility] [place] Count Organism: 1.1 Antibiotic Interpretation MIL Status Urine Culture - FRMCPiperacillin/Tazobactam S F Urine Culture - [facility] Testing performed at [facility] O:KLEBVA Isolated Urine Culture - [facility] [place] Count Organism: 1.1 Antibiotic Interpretation MIL Status Urine Culture - FRMCTrimethoprim/Sulfa S F Urine Culture - [facility] Testing performed at [facility] O:KLEBVA Isolated Urine Culture - [facility] [place] Count Organism: 1.1 Antibiotic Interpretation MIL Status Performing Lab:see note ML - [facility] LB SEE REPORT - Custodial Laborer Id information not found for OBX-specific television producer legend UA RANDOM W or MICROSCOPIC Reviewed date:04/19/2025 06:07:26 PM Interpretation: Performing Lab: Notes/Report: [facility] ,Color UrineLT. YELLOWYELLOWClarity UrineCLEARCLEARSpecific [place]by Urine<=1.005 1.005-1.025pH Urine6.05.0-9.0Protein UrineNEGATIVENEG/TRACE mg/dLGlucose Urine UANEGATIVENEGATIVE mg/dLBilirubin UrineNEGATIVENEGATIVEKetones UrineNEGATIVE NEGATIVE mg/dLBlood UrineNEGATIVENEGATIVENitrite UrinePOSITIVENEGATIVE Urobilinogen Urine0.20.2-1.0 EU/dLLeukocyte Esterase UrineSMALLNEGATIVEWBC Urine 5-10NONE SEEN #/HPFRBC UrineNONE SEEN0-2 #/HPFBacteria UrineLARGENONE SEEN #/HPF Mucus UrineNONE SEENNONE SEENSquamous Epithelial Cell UrineRARENONE/RARE #/LPF Crystals Seen?None SeenNone Seen #/HPFCast Seen?NONE SEENNONE SEEN #/LPFUrine Culture IndicatedALREADY ORDEREDPerforming Lab:see noteML - [facility] LBProthrombin Time INR Reviewed date:03/14/2025 07:27:36 PM Interpretation: Performing Lab: Notes/Report: [facility] ,Prothrombin Time11.19.0-11.6 secINR1.05 DESIRED INR: 2.0-3.0 CONDITIONS NOT LISTED BELOW 2.5-3.5 FOR PROSTHETIC HEART VALVE REPLACEMENT 2.5-3.5 RECURRENT THROMBOSIS Performing Lab:see noteML - [facility] LBPTT Reviewed date:03/14/2025 07:27:36 PM Interpretation: Performing Lab: Notes/Report: [facility] ,Partial Thromboplastin Time26.522.3-36.2 secPerforming Lab:see note - [facility] LBPROF 14(COMP METB) Reviewed date:03/14/2025 07:27:36 PM Interpretation: Performing Lab: Notes/Report: [facility] ,Rqzagm359841-037 mmol/LPotassium3.63.5-5.1 mmol/NYgvypipj81551-748 mmol/LCarbon Zljyqdf77.621.0-32.0 mmol/LAnion Gap14.8Ylfxtkb23724-783 mg/dLBlood Urea Nitrogen9.07.0-18.0 mg/dLCreatinine1.000.55-1.02 mg/dLEstimated GFR ( Yazmin>60>=60 mL/min/1.73m 2Estimated GFR (Non- Ame56>=60 mL/min/1.73m 2 BUN Creatinine Ratio9.0Yimqkwl9.58.5-10.1 mg/dLBilirubin Total0.60.2-1.0 mg/dL Aspartate Amino Eszcktdgyvl3735-88 U/LAlanine Idomrocwntbnqzfr2236-98 U/L Alkaline Likgwiajlvn02788-416 U/LTotal Protein7.26.4-8.2 g/dLAlbumin Level3.6 3.4-5.0 g/dLGlobulin3.6Albumin Globulin Ratio1.0Performing Lab:see noteML - [facility] LBCBC AUTO DIFF Reviewed date:03/14/2025 07:27:36 PM Interpretation: Performing Lab: Notes/Report: [facility] ,White Blood Count15.04.0-11.0 10 3/uLRed Blood Count5.254.20-5.40 10 6/uL Zsvyquwzdp91.312.0-16.0 g/eQHsjlpdmayg51.336.0-48.0 %Mean Corpuscular Mpltbm80.4 81.0-99.0 fLMean Corpuscular Myuejzxhao23.226.7-34.0 pgMean Corpuscular HGB Conc 32.329.9-35.2 g/dLRed Cell Distribution Width14.511.0-15.0 %Platelet Pqvhq699 150-450 10 3/uLMean Platelet Volume8.79.5-13.5 fLNeutrophils Percent Auto72.0 43.0-75.0 %Lymphocytes Percent Auto17.020.5-60.0 %Monocytes Percent Auto9.71.7- 12.0 %Eosinophils Percent Auto0.10.9-7.0 %Basophils Percent Auto0.50.2-2.0 % Immature Granulocytes Pct Auto0.70.0-0.5 %Neutrophils Absolute Auto10.81.4-6.5 10 3/uLLymphocytes Absolute Auto2.51.2-3.8 10 3/uLMonocytes Absolute Auto1.50.3- 0.8 10 3/uLEosinophils Absolute Auto0.00.0-0.7 10 3/uLBasophils Absolute Auto0.1 0.0-0.1 10 3/uLImmature Granulocytes Abs Auto0.100.00-0.03 10 3/uLPerforming Lab:see noteML - [facility] LBPROF 14(COMP METB) Reviewed date:04/19/2025 06:07:26 PM Interpretation: Performing Lab: Notes/Report: [facility] ,Whlzih760017-054 mmol/LPotassium4.43.5-5.1 mmol/LHfhlkxgm18671-175 mmol/LCarbon Frgrzpk07.121.0-32.0 mmol/LAnion Gap14.0Bpmpwve99397-086 mg/dLBlood Urea Zourilyl17.07.0-18.0 mg/dLCreatinine0.630.55-1.02 mg/dLEstimated GFR ( Yazmin>60>=60 mL/min/1.73m 2Estimated GFR (Non- Viregn>60>=60 mL/min/1.73m 2BUN Creatinine Ratio19.5Fxzijqa0.78.5-10.1 mg/dLBilirubin Total0.30.2-1.0 mg/dL Aspartate Amino Cnyuxgljcbz4634-91 U/LAlanine Wxpoxldvqyvemugz3123-24 U/L Alkaline Etffbazggpy93942-926 U/LTotal Protein6.36.4-8.2 g/dLAlbumin Level3.1 3.4-5.0 g/dLGlobulin3.2Albumin Globulin Ratio1.0Performing Lab:see noteML - [facility] LBLIPASE Reviewed date:04/19/2025 06:07:26 PM Interpretation: Performing Lab: Notes/Report: [facility] ,Kwzfvs48.016.0-77.0 U/LPerforming Lab:see noteML - [facility] LBCBC AUTO DIFF Reviewed date:04/19/2025 06:07:26 PM Interpretation: Performing Lab: Notes/Report: [facility] ,White Blood Count8.14.0-11.0 10 3/uLRed Blood Count4.634.20-5.40 10 6/uL Aahzeqwkfv25.512.0-16.0 g/aMMdnxknirvj27.836.0-48.0 %Mean Corpuscular Hlqrbw41.0 81.0-99.0 fLMean Corpuscular Lbzvezsmvk81.026.7-34.0 pgMean Corpuscular HGB Conc 31.429.9-35.2 g/dLRed Cell Distribution Width13.811.0-15.0 %Platelet Krfpm194 150-450 10 3/uLMean Platelet Volume8.79.5-13.5 fLNeutrophils Percent Auto54.4 43.0-75.0 %Lymphocytes Percent Auto30.420.5-60.0 %Monocytes Percent Auto11.31.7- 12.0 %Eosinophils Percent Auto2.40.9-7.0 %Basophils Percent Auto0.50.2-2.0 % Immature Granulocytes Pct Auto1.00.0-0.5 %Neutrophils Absolute Auto4.41.4-6.5 10 3/uLLymphocytes Absolute Auto2.51.2-3.8 10 3/uLMonocytes Absolute Auto0.90.3-0.8 10 3/uLEosinophils Absolute Auto0.20.0-0.7 10 3/uLBasophils Absolute Auto0.00.0- 0.1 10 3/uLImmature Granulocytes Abs Auto0.080.00-0.03 10 3/uLPerforming Lab:see noteML - [facility] LBAMYLASE Reviewed date:04/19/2025 06:07:26 PM Interpretation: Performing Lab: Notes/Report: [facility] ,Yfhfebm1944-141 U/LPerforming Lab:see noteML - [facility] LB Reason For Referral Reason KURT - food getting stuck please Diagnosis 1 Esophageal stricture (K22.2) Referral Organization [facility] Referring Provider First Name Curtis Referring Provider Last Name James Referring Provider Speciality [facility] grover Referred Provider Compa Dickens Referred Provider Specialty Gastroentero logy Referral Priority Routine Medications Medication SIG (Take, Route, Frequency, Duration) Notes Start Date End Date Status [place] Carbonate 300 MG as directed Orally 1am and 2 hs ActiveWellbutrin XL 150 MG1 tablet in the morning Orally Once a dayActive Mirtazapine 30 MG1 tablet at bedtime Orally Once a dayActiveOndansetron 4 MG1 tablet on the tongue and allow to dissolve Orally Q 6 hours PRN; Duration: 30 daysActiveMyrbetriq 25 MG1 tablet Orally Once a day; Duration: 30 days05/07/2025 ActiveProtonix 40 MG1 tablet Orally Once a day; Duration: 30 days08/02/2025 ActiveAtorvastatin Calcium 40 MG1 tablet Orally Once a dayActiveSpironolactone 25 MG1 tablet Orally Once a dayActivePromethazine HCl 25 MG1 tablet as needed Orally q6h; Duration: 5 days04/18/2025tiveHyoscyamine Sulfate 0.125 MG1-2 tabs SL SL every 4 hrs PRN abd pain03/13/2025tiveTolterodine Tartrate 2 MG1 tablet Orally Twice a day; Duration: 30 days05/07/2025tivebusPIRone HCl 10 MG2 Orally tidActivetiZANidine HCl 4 MG2 tablet Orally at bedtime as needed; Duration: 30 08/16/2023ctiveLithium Carbonate 150 MGin the a.m Orally dailyActive Mysoline 50 MG2 tablets Orally Once a day; Duration: 30 08/02/2025tive Lactulose 20 GM/30ML15 - 30 mL as needed Orally Once a day - up to bid; Duration: 30 09/02/2023ctiveVraylar 6 MGTAKE 1 CAPSULE BY MOUTH ONCE DAILY at bedtime Oral; Duration: 30 DaysActivePropranolol HCl ER 80 MG1 capsule Orally Once a day; Duration: 30 daysstopping izjvmxbtbe53/27/2025Active Immunizations Vaccine Route Administration Date Status Comme nts Flu, Flucelvax (4325-0880) (08812) 6 mos +, single-dose syringe IM Intramuscular 09/24/2023 Administered Pneumococcal (Pneumovax 23)Nxgscdo3908/16/20171912JfxgntbosrzjKBWG-RZS-2 (COVID 19 Marguerite 0.5mL) AureUnknown01/25/20216155ZicgqjxmlqxhHPKD-LIV-1 (COVID 19 Moderna - Booster 0.25mL)Lpptjoz9109/26/2021dministered Social History Tobacco Use: Social History Observation Description Date Details (start date - stop date) Former Smoker 11/22/1974 - 11/22/2019 Tobacco Use/Smoking Question Answer Notes Patient is a former smoker When did you start smoking?11/22/1974When did you stop smoking?11/22/2019Alcohol Screen (Audit-C) Question Answer Notes Did you have a drink containing alcohol in the p ast year? No Mvxmya5SxxlqpvvgxvplqFrjqkkmuBRRLJ-L (Standard) Question Answer Notes Did you have a drink containing alcohol in the p ast year? No Wdaker5XjssvlaeupishxUubjnzkd Problems Problem Type SNOMED Code ICD Code Onset Dates Problem Status W/U Status Risk Notes Problem Essential hypertension (85564346 ) Essential (primary) hypertension (I10) ActiveconfirmedProblemMixed hyperlipidemia (234804908)Mixed hyperlipidemia (E78.2)ActiveconfirmedProblemRectal prolapse (48671473)Rectal prolapse (K62.3) ActiveconfirmedProblemDyspnea (706810301)Other forms of dyspnea (R06.09)Active confirmedProblemLocalized edema (9681054)Localized edema (R60.0)Activeconfirmed ProblemTremor (03682767)Tremor (R25.1)ActiveconfirmedProblemRestless legs syndrome (48145672)Restless leg syndrome (G25.81)ActiveconfirmedProblem Obstructive sleep apnea syndrome (73452853)ERIKA (obstructive sleep apnea) (G47.33)ActiveconfirmedProblemGastroesophageal reflux disease (542997327)GERD without esophagitis (K21.9)ActiveconfirmedProblemBladder incontinence (811487167)Bladder incontinence (R32)ActiveconfirmedProblemDiarrhea (90624020) Diarrhea (R19.7)ActiveconfirmedProblemPure hyperglyceridemia (404014551)High triglycerides (E78.1)ActiveconfirmedProblemDepressed bipolar I disorder (45722350)Bipolar depression (F31.30)ActiveconfirmedProblemMemory loss (91288421)Memory loss (R41.3)ActiveconfirmedProblemLumbar radicular pain (7941855764)Lumbar radicular pain (M54.16)ActiveconfirmedProblemEsophageal stricture (06942594)Esophageal stricture (K22.2)ActiveconfirmedProblemHernia of anterior abdominal wall (disorder) (693531802)Abdominal wall hernia (K43.9) ActiveconfirmedProblemGoiter (5050140)Enlarged thyroid (E04.9)Activeconfirmed ProblemOpioid abuse (0476221)Narcotic abuse (F11.10)ActiveconfirmedProblemSinus congestion (93283439)Sinus congestion (R09.81)ActiveconfirmedProblemSuicidal ideation (8429694)Suicidal ideation (R45.851)ActiveconfirmedProblemAcute bronchiolitis (5180831)Acute bronchiolitis (J21.9)ActiveconfirmedProblem Impingement syndrome of shoulder region (277150332)Shoulder impingement syndrome, right (M75.41)ActiveconfirmedProblemLeukocytosis (591782619)Elevated WBCs (D72.829)ActiveconfirmedProblemPure hypercholesterolemia (782729573)Pure hypercholesterolemia (E78.00)ActiveconfirmedProblemHigh cholesterol (03293371) High cholesterol (E78.00)ActiveconfirmedProblemPulmonary hypertension (18245707) Pulmonary hypertension (I27.20)Activeconfirmed Vital Signs Blood pressure diastolic 84 mm Hg 08/02/2025 Sjtmxa96 in08/02/2025lood pressure mm Hg08/02/20256225Jnczkm126.4 lbs 08/02/2025BMI33.02 kg/m208/02/2025 Encounters Encounter Location Date Provider Diagnosis [id number] [place] [address] 08/05/2025 Curtis Valencia [facility] [place] [address] 09/03/2025Doug HoyAcute bronchiolitis J21.9B[facility] [place] [address]/Doug [facility] [place] [address]/Doug HoyAcute bronchiolitis J21.9BSt. [facility] [place] [address]/11/2024Doug [facility] [place] [address]/06/2025Doug [facility] [facility] [address]/Doug [facility] [facility] [place] [address]/10/2025Doug [facility] [facility] [place] [address]/ Curtis [facility] [facility] [place] [address]/09/2025Doug [facility] [facility] [place] [address]/Doug [facility] [facility] [place] [address]/Doug HoyGastroenteritis K52.9 ; Elevated WBCs D72.829 ; Essential (primary) hypertension I10 and Nausea & vomiting R11.2BSt. [facility] [facility] [place] [address]/Doug [facility] [facility] [place] [address]/Doug [facility] [facility] [place] [address]/Doug [facility] [facility] [place] [address]/Doug [facility] [facility] [place] [address]/07/2025 Curtis [facility] [facility] [place] [place] [address] 01/29/2025Doug HoyPure hypercholesterolemia E78.00[facility] [facility] [place] [address]/Doug HoyElevated WBCs D72.829[facility] [facility] [place] [address]/06/2025Doug [facility]oyEnc[facility] Z00.[address] [address] 05/07/2025Doug HoyUrinary frequency R35.0 and Bipolar depression F31.[address] [address]/ Curtis HoyGastroenteritis K52.9B[address] [address]/09/2025Doug HoySinus congestion R09.81 ; Diarrhea R19.7 ; Acute bronchiolitis J21.9 ; Tremor R25.1 ; GERD without esophagitis K21.9 and Esophageal stricture K22.2B[address] [address]/Doug HoyPulmonary hypertension I27.20 ; Restless leg syndrome G25.81 ; ERIKA (obstructive sleep apnea) G47.33; Pure hypercholesterolemia E78.00 ; Mixed hyperlipidemia E78.2 and Essential (primary) hypertension U31Eltsxoc[address] [address]/Doug HoyGastroenteritis K52.9 Assessments Encounter Date Diagnosis (ICD Code) Assessment Notes Treatment Notes Treatment Clinical Notes Section Notes 02/05/2025 Pulmonary hypertension (ICD-10 - I27.20) 02/05/2025Restless leg syndrome (ICD-10 - G25.81)02/27/2025[facility] (ICD-10 - Z00.00)03/13/2025Gastroenteritis (ICD-10 - K52.9)Get plenty of rest. Stay hydrated by sucking on ice chips or taking small sips of water. You can also try drinking clear soda, clear broths or noncaffeinated sports drinks. Stop eating solid foods for a few hours to let your stomach settle. East back into eating by eating bland, xdry-qk-wymurb foods like crackers, toast, gelatin, bananas, rice and chicken. Try to avoid foods/substances including dairy products, caffeine, alcohol, nicotine and fatty or highly seasoned foods. Medications such as ibuprofen or tylenol can make your stomach more upset, so use sparingly if at all. Also avoid ybyx-dem-ulvjres anti-diarrheal medications because it can make it harder for your body to eliminate the virus.04/18/2025Gastroenteritis (ICD-10 - K52.9)Get plenty of rest. Stay hydrated by sucking on ice chips or taking small sips of water. You can also try drinking clear soda, clear broths or noncaffeinated sports drinks. Stop eating solid foods for a few hours to let your stomach settle. East back into eating by eating bland, kvsb-qn-omcwtx foods like crackers, toast, gelatin, bananas, rice and chicken. Try to avoid foods/substances including dairy products, caffeine, alcohol, nicotine and fatty or highly seasoned foods. Medications such as ibuprofen or tylenol can make your stomach more upset, so use sparingly if at all. Also avoid qvzo-gev-mkejhfs anti-diarrheal medications because it can make it harder for your body to eliminate the virus.05/07/2025 Urinary frequency (ICD-10 - R35.0)05/07/2025ipolar depression (ICD-10 - F31.30) lithium seems to be deneqqc7108/02/2025Sinus congestion (ICD-10 - R09.81) 08/02/2025Diarrhea (ICD-10 - R19.7)01/29/2025Pure hypercholesterolemia (ICD-10 - E78.00)02/10/2025Elevated WBCs (ICD-10 - D72.829)03/14/2025Gastroenteritis (ICD- 10 - K52.9)03/14/2025Elevated WBCs (ICD-10 - D72.829)5Acute bronchiolitis (ICD-10 - J21.9)5Acute bronchiolitis (ICD-10 - J21.9) 03/14/2025Essential (primary) hypertension (ICD-10 - I10)5Acute bronchiolitis (ICD-10 - J21.9)02/05/2025OSA (obstructive sleep apnea) (ICD-10 - G47.33)02/05/2025Pure hypercholesterolemia (ICD-10 - E78.00)08/02/2025Tremor (ICD-10 - R25.1)03/14/2025Nausea & vomiting (ICD-10 - R11.2)08/02/2025GERD without esophagitis (ICD-10 - K21.9)02/05/2025Mixed hyperlipidemia (ICD-10 - E78.2)02/05/2025Essential (primary) hypertension (ICD-10 - I10)08/02/2025 Esophageal stricture (ICD-10 - K22.2) Plan Of Treatment Pending Test Test Name Order Date CMP (COMPLETE METABOLIC PANEL) 3 HEMOGLOBIN A1C (GLYCO) 09/02/2023 HEMOGLOBIN A1C (GLYCO) 02/05/2025 HEMOGLOBIN A1C (GLYCO) 08/02/2025 IRON, TOTAL 09/02/2023 LIPID PANEL (CHOL/TRIG/HDL/LDL) 09/02/20 23 LIPID PANEL (CHOL/TRIG/HDL/LDL) 02/06/20 25 LIPID PANEL (CHOL/TRIG/HDL/LDL) 08/02/20 25 CBC WITH DIFF 09/02/2023 PT (PROTIME), INR AND PTT (PT/INR AND PT T) 03/14/2025 VITAMIN D, 25 LEVEL (TOTAL) 09/02/2023 VITAMIN D, 25 LEVEL (TOTAL) 02/05/2025 MAMM Mammograms CAD 09/02/2023 Urinalysis Microscopic 04/18/2025 Insulin Level 08/02/2025 COMPREHENSIVE METABOLIC PROFILE WITH GFR 03/14/2025 CBC W/AUTO DIFF 03/14/2025 CBC W/AUTO DIFF 02/10/2025 STOOL OCCULT BLOOD 09/02/2023 CULTURE URINE 04/18/2025 LITHIUM 04/18/2025 XR ABD FLAT UP_PA CH 04/18/2025 XR LSPINE 2_3 VIEWS 09/24/2023 THYROID PANEL (T4/TSH/FREE T3) 3 THYROID PANEL (T4/TSH/FREE T3) 5 THYROID PANEL (T4/TSH/FREE T3) 5 MM screening mammo BI 02/05/2025 ECG 12 lead 09/19/2025 CMP (COMP MET LOBO) w/eGFR CKD-EPI 2024 CMP (COMP MET LOBO) w/eGFR CKD-EPI 2024 CBC WITH DIFF 02/05/2025 CBC WITH DIFF 08/02/2025 Insurance Providers Payer Name Payer Address Payer Phone Subscriber Number Group Number Insured Name Patient Relationship to Insured Coverage Start Date Coverage End Date [place] [address] [place] [address] [id number] Maddy Carpenter - patient is the [id number] 2009[address] [place] [id number], [employer] - patient is the insured Medications Administered Medication Instructions Date of Administration Dosage Notes Kenalog-40 20 cq216Lbwigwe-3856/06/709747 ws25Cxfzgmfkw Uvvvjubfuqvy61/03/202360 ip10Wzspopaua Oevdozjoxjgu60/06/202360 jf21Diioirfykvud Ucrrlig98 mg60 Orphenadrine Tyhacrv21 mg60 Medical (General) History Medical History History ICD Code Pulmonary hypertension I27.20 Bipolar depression F31.30 Abdominal wall hernia K43.9 ERIKA (obstructive sleep apnea) G47.33 High cholesterol E78.00 Shoulder impingement syndrome, right M75 .41 Restless leg syndrome G25.81 Memory loss R41.3 Enlarged thyroid E04.9 Rectal prolapse K62.3 Narcotic abuse F11.10 Pure hypercholesterolemia E78.00 Suicidal ideation R45.851 Bladder incontinence R32 Surgical History Surgery Date(Month/Year) Heart Cath 2021 EGD 2021 T A H and B S O Rotator cuff iqbuqr0410wzckcmctujqmr with yeqk8051PGZ w/biopsy and dilation 08/22/2025Hospitalization History Reason Date(Month/Year) mental health see above
[2025-09-19] MEDS: ATROPINE SULFATE 1 MG/10 ML SYRINGE 0.5 MG IVP (05:55)
--- OUTSIDE RECORDS SUMMARY | 2025-09-19 05:56 | XMS_ITS | Clinical Summary ---
Author Organization [facility] Address [address] [place] [address] Care Team Providers Care Harpoon Engagement Planning Operator Name Role Phone Thanh Ramirez MD Primary Care Provider [phone] Allergies No known active allergies Medications MedicationSigDispense QuantityRefillsLast FilledStart DateEnd DateStatus aspirin 81 mg EC tablet in the morning.Active buPROPion XL (Wellbutrin XL) 150 mg 24 hr tablet in the morning.Active busPIRone (Buspar) 15 mg tablet every 8 (eight) hours.Active cariprazine (Vraylar) 6 mg capsule 1 capsule in the morning.1Active lithium 300 mg tablet Take 300 mg by mouth in the morning, at noon, and at bedtime.Active mirtazapine (Remeron) 15 mg tablet in the morning.Active OLANZapine (ZyPREXA) 5 mg tablet every 8 (eight) hours.Active tiZANidine (Zanaflex) 4 mg tablet in the morning.11/18/2020Active atorvastatin (Lipitor) 40 mg tablet Indications:Mixed hyperlipidemiaTake 1 tablet (40 mg) by mouth at bedtime. 90 tablet 4Active spironolactone (Aldactone) 25 mg tablet Indications:Leg edemaTake 1 tablet by mouth in the morning. 90 tablet 5Active metoprolol succinate XL (Toprol-XL) 50 mg 24 hr tablet Indications:Cardiovascular stress test abnormal,Primary hypertensionTake 1 tablet (50 mg) by mouth in the morning. 90 tablet 304504/6Active tolterodine (Detrol) 2 mg tablet Take 2 mg by mouth two times daily.5Active lithium 300 mg capsule Take 300 mg by mouth with breakfast, with lunch, and with evening meal.Active ezetimibe (Zetia) 10 mg tablet Indications:Mixed hyperlipidemiaTake 1 tablet (10 mg) by mouth in the morning. 90 tablet /508/ctive Active Problems ProblemNoted DateDiagnosed DateBipolar I disorder, most recent episode depressed 06/28/2024hronic schizophrenia with acute jbvxzwlnhinf79/07/2024Nausea 06/28/2024Suicidal dfrpjirc04/07/2024bnormal barium hysfjym19 Bladder fcllweofvash16ysphagia, yizmjtenoveph55/24/2024 12/15/2023Esophagitis on yejrgj92HTN (hypertension)12/15/2023 12/15/2023Incisional fqmyay71MI 35.0-35.9,adult12/15/2023 12/15/2023Obstructive sleep apnea uacucbjw20ectal prolapse estless legs cxopknkk29yspnea on rquvvmsg48/07/2022Mixed fmajdxcnglvqij68/07/2022 Encounters DateTypeDepartmentCare VensLgnfzonmrry41/11/2025 10:15 AM EDTOffice [facility] [address] [place] [address] Rolo Rodgers MD Primary hypertension (Primary Dx); Mixed hyperlipidemia; Leg edema; Cardiovascular stress test abnormalfrom Last 3 Months Family History Medical HistoryRelationNameCommentsHypertensionFatherDiabetesMotherHypertension MotherRelationNameStatusCommentsFatherDeceasedMotherAlive Social History Tobacco UseTypesPacks/DayYears UsedDateSmoking Tobacco: FormerCigarettes Smokeless Tobacco: Never Tobacco Cessation:Counseling Given: Not Answered Alcohol UseStandard Drinks/WeekCommentsNot Currently0 (1 standard drink = 0.6 oz pure alcohol)UT Safety & EnvironmentAnswerDate RecordedFear of Current or Ex-PartnerNot on file01/13/2024Emotionally AbusedNot on file02/22/2024Physically AbusedNot on file01/13/2024Sexually AbusedNot on file01/13/2024hysically or Sexually AbusedNot on file01/13/2024CommentsUnknownSex and Gender InformationValueDate RecordedSex Assigned at GlzftPzgxld50/05/2025 4:19 PM EDT Legal YnvMdjckz49/29/2022 10:42 PM EDTGender PjoqgcfqIqhscl13/05/2025 4:19 PM EDTSexual OrientationHeterosexual or Zhbnoldl87/05/2025 4:19 PM EDT Last Filed Vital Signs Vital SignReadingTime TakenCommentsBlood Vnrxancn295/72007/02/2025 10:58 AM EDT Uhygb8296/11/2025 10:58 AM EDTTemperature--Respiratory Rate--Oxygen Saturation 95%07/02/2025 10:58 AM EDTInhaled Oxygen Concentration--Sizfnk59.8 kg (187 lb) 07/02/2025 10:58 AM DVXJuuhht809 cm (5' 3 )07/02/2025 10:58 AM EDTBody Mass Index33.13007/02/2025 10:58 AM EDT Plan of Treatment Health MaintenanceDue DateLast DoneCommentsMedicare Annual Wellness (AWV) 1959Depression Pcnzebpfl21/07/1971Adult Nnyfnbz8603/28/1981Mammogram 1999Zoster Vaccines (1 of 2)2009Pneumococcal Vaccine: 50+ Years (2 of 2 - PCV)Fall Risk Nhlnzojuh51/07/2024COVID-19 Vaccine (3 - season)/03/2021, 01/25/2021Influenza Vaccine (#1) /, 09/30/2020, 08/23/2017, Additional history existsHIB VaccinesAged OutNo longer eligible based on patient's age to complete this topic HPV VaccinesAged OutNo longer eligible based on patient's age to complete this topicIPV VaccinesAged OutNo longer eligible based on patient's age to complete this topicMeningococcal B VaccineAged OutNo longer eligible based on patient's age to complete this topicMeningococcal VaccineAged OutNo longer eligible based on patient's age to complete this topicRotavirus VaccinesAged OutNo longer eligible based on patient's age to complete this topic Insurance Care Teams Team MemberRelationshipSpecialtyStart DateEnd Thanh Ramirez MD [address] [facility] [address] [address] [facility] - Byxsemz61/7/22
--- OUTSIDE RECORDS SUMMARY | 2025-09-19 05:57 | XMS_ITS | Clinical Summary ---
Author Organization [facility] Address [address] [place] [address] Care Team Providers Care Seasoning Sprayer Name Role Phone Unavailable Primary Care Provider Unavailabl e Social History Tobacco UseTypesPacks/DayYears UsedDateSmoking Tobacco: Never Assessed CommentsUnknownSex and Gender InformationValueDate RecordedSex Assigned at Not on fileLegal KkvEfrkpz63/15/2023 7:12 PM EDTGender IdentityNot on fileSexual OrientationNot on file Last Filed Vital Signs Vital SignReadingTime TakenCommentsBlood Slevqblk386/6707 12:00 PM EDT Pulse--Temperature--Respiratory Rate--Oxygen Saturation--Inhaled Oxygen Concentration--Hbteqh14.6 kg (180 lb)06/16/2018 12:00 PM CKNHahcap740 cm (5' 3 ) 06/16/2018 12:00 PM EDTBody Mass Index31.8906/16/2018 12:00 PM EDT Plan of Treatment Not on file
[2025-09-19 06:09] LABS: Anion Gap 11.7; Blood Urea Nitrogen 16.0 mg/dL (7.0-18.0); Calcium 9.7 mg/dL (8.5-10.1); Carbon Dioxide 25.7 mmol/L (21.0-32.0); Chloride 103 mmol/L (98-107); Estimated GFR (African America >60 (>=60 mL/min/1.73m^2); Estimated GFR (Non-African Ame >60 (>=60 mL/min/1.73m^2); Glucose 130 mg/dL (74-106); Potassium 4.4 mmol/L (3.5-5.1); Sodium 136 mmol/L (136-145)
[2025-09-19] MEDS: 0.9 % SODIUM CHLORIDE 1,000 ML 1000 ML IV (06:23)
[2025-09-19] MEDS: ATROPINE SULFATE 1 MG/10 ML SYRINGE IVP ×2 (06:23→07:01)
[2025-09-19] MEDS: CALCIUM GLUC IN NACL, ISO-OSM 1 GM/50 ML PLAST..BAG IV (06:32)
--- NOTE | 2025-09-19 06:54 | ED.GENADUL1 ---
HPI HPI - General Adult General Chief complaint: Arrhythmia/Palpitations Stated complaint: DIZZINESS, HEART PALPITATIONS, NAUSEA & VOMITING Time Seen by Provider: 09/19/25 05:41 Source: patient Mode of arrival: walk-in Limitations: no limitations History of Present Illness HPI narrative: Patient is a 65-year-old female presenting to the emergency department for evaluation of dizziness and bradycardia. Patient states she was started on propranolol 80 mg extended release just recently by her PCP. Her first dose was last night at 11 PM. She states she was having a hard time sleeping because she was so dizzy. She is otherwise asymptomatic without shortness of breath, abdominal pain, nausea, or vomiting. She denies history of previous MA, heart block, or any other cardiac issues. Related Data Home Medications ?Medication ?Instructions ?Recorded ?Confirmed atorvastatin 40 mg tablet 40 mg PO .q hs 04/19/25 04/19/25 bupropion HCl 300 mg 24 hr tablet, 300 mg PO DAILY 04/19/25 04/19/25 extended release buspirone 10 mg tablet 20 mg PO TID 04/19/25 04/19/25 ezetimibe 10 mg tablet 10 mg PO DAILY 04/19/25 04/19/25 hyoscyamine sulfate 0.125 mg mg PO Q4H PRN cramps 04/19/25 sublingual tablet lithium carbonate 150 mg capsule 150 mg PO DAILY 04/19/25 04/19/25 lithium carbonate 300 mg tablet 300 mg PO DAILY 04/19/25 04/19/25 metoprolol succinate 50 mg 50 mg PO Q12H 04/19/25 04/19/25 tablet,extended release 24 hr mirtazapine 30 mg tablet 30 mg PO HS 04/19/25 04/19/25 olanzapine 5 mg tablet 5 mg PO .q4 PRN agitation 04/19/25 04/19/25 ondansetron 4 mg disintegrating 4 mg PO .every 4 h 04/19/25 04/19/25 tablet Allergies Allergy/AdvReac Type Severity Reaction Status Date / Time No Known Drug Allergies Allergy Verified 09/19/25 05:41 Review of Systems ROS Status of ROS 10 or more systems reviewed and unremarkable except as noted in history and below PFSH PFSH Social History Little interest or pleasure in doing things: not at all Feeling down, depressed, or hopeless: not at all Exam Narrative Exam Narrative: CONSTITUTIONAL: Well-appearing, answering questions and following commands appropriately SKIN: Was warm and dry. EYES: Sclerae white. EARS, NOSE, THROAT: Moist oral mucosa. No JVD. RESPIRATORY: Clear to auscultation bilaterally, no wheezes, crackles, or stridor, no use of accessory muscles CARDIOVASCULAR: Bradycardic rate and regular rhythm. There is no S3, S4, murmur, rub. GASTROINTESTINAL: Abdomen is nondistended. MUSCULOSKELETAL: No peripheral edema. NEUROLOGIC: Patient is awake and alert. Facies were symmetrical. Constitutional Vital Signs, click to edit/add: Last Vital Signs Temp 98 F 09/19/25 05:38 Pulse 44 L 09/19/25 06:44 Resp 18 09/19/25 06:44 BP 99/70 09/19/25 06:44 Pulse Ox 94 L 09/19/25 06:44 O2 Del Method Room Air 09/19/25 05:38 Course Vital Signs Vital signs: Vital Signs Temperature 98 F 09/19/25 05:38 Pulse Rate 44 L 09/19/25 05:38 Respiratory Rate 18 09/19/25 05:38 Blood Pressure 117/46 L 09/19/25 05:38 Pulse Oximetry 97 09/19/25 05:38 Oxygen Delivery Method Room Air 09/19/25 05:38 Temperature 98 F 09/19/25 05:38 Pulse Rate 44 L 09/19/25 06:44 Respiratory Rate 18 09/19/25 06:44 Blood Pressure 99/70 09/19/25 06:44 Pulse Oximetry 94 L 09/19/25 06:44 Oxygen Delivery Method Room Air 09/19/25 05:38 Medical Decision Making [facility] Narrative Medical decision making narrative: Patient is a 65-year-old female presenting to the emergency department for evaluation of dizziness and bradycardia after her first dose of propranolol 80 mg extended release last night. She took the medication approximately 8 hours prior to arrival. Her vital signs on arrival were significant for bradycardia, otherwise within normal limits. She has a normal blood pressure of 117/46. She has an unremarkable physical examination otherwise. 12 Lead EKG: Sinus bradycardia at a rate of 41. Normal axis. No ST segment elevations. QRS, WI, and QTc interval within normal limits. Final impression: Sinus bradycardia without evidence of acute myocardial ischemia My clinical impression is that the patient's symptoms are related to adverse side effect from propranolol. Lower concern for ACS or other cardiogenic etiologies, however an IV was established and laboratory studies were obtained. She was placed on continuous cardiac monitoring. Patient was given 0.5 mg IV atropine without effect. She was then given 2 more doses of 1 mg IV atropine 3 minutes apart with no effect. Laboratory studies were unremarkable. No significant electrolyte or metabolic derangement. No evidence of acute kidney injury. No anemia, leukocytosis, or thrombocytopenia. Troponin nonelevated. I did consult and discuss the patient with toxicology. Cell Lead recommended supportive care and observation in the ED as the patient only took 80 mg. Half-life is about 14 hours, she is 8 hours into the ingestion. Recommended trailing atropine, IV fluids, and calcium gluconate. Patient will be signed out to Dr. Bergman. At the time of sign-out, the patient remains bradycardic with a normal blood pressure. I did move her to the resuscitation bay and place her on pads should she develop the need for transcutaneous pacing. Lab Data Lab results reviewed: Yes I reviewed the patient's lab results Labs: Lab Results 09/19/25 Range/Units 05:50 WBC 9.7 (4.0-11.0) 10^3/uL RBC 5.14 (4.20-5.40) 10^6/uL Hgb 14.1 (12.0-16.0) g/dL Hct 43.8 (36.0-48.0) % MCV 85.2 (81.0-99.0) fL MCH 27.4 (26.7-34.0) pg MCHC 32.2 (29.9-35.2) g/dL RDW 13.9 (11.0-15.0) % Plt Count 441 (150-450) 10^3/uL MPV 8.6 L (9.5-13.5) fL Neut % (Auto) 62.8 (43.0-75.0) % Lymph % (Auto) 26.6 (20.5-60.0) % [place] % (Auto) 8.7 (1.7-12.0) % Eos % (Auto) 0.3 L (0.9-7.0) % Baso % (Auto) 1.0 (0.2-2.0) % Neut # (Auto) 6.1 (1.4-6.5) 10^3/uL Lymph # (Auto) 2.6 (1.2-3.8) 10^3/uL [place] # (Auto) 0.8 (0.3-0.8) 10^3/uL Eos # (Auto) 0.0 (0.0-0.7) 10^3/uL Baso # (Auto) 0.1 (0.0-0.1) 10^3/uL Abs Immat Gran (auto) 0.06 H (0.00-0.03) 10^3/uL Imm/Tot Granulo (auto) 0.6 H (0.0-0.5) % Sodium 136 (136-145) mmol/L Potassium 4.4 (3.5-5.1) mmol/L Chloride 103 (98-107) mmol/L Carbon Dioxide 25.7 (21.0-32.0) mmol/L Anion Gap 11.7 BUN 16.0 (7.0-18.0) mg/dL Creatinine 0.77 (0.55-1.02) mg/dL Est GFR ( Amer) >60 (>=60 mL/min/1.73m^2) Est GFR (Non-Af Amer) >60 (>=60 mL/min/1.73m^2) BUN/Creatinine Ratio 20.8 Glucose 130 H (74-106) mg/dL Calcium 9.7 (8.5-10.1) mg/dL Troponin I High Sens 4.5 (4.0-51.3) pg/mL ECG Data Attestation: I personally reviewed and interpreted this ECG as follows: Discharge Plan Discharge Patient Disposition: Still a Patient
--- NOTE | 2025-09-19 07:17 | PC.NURSE ---
report given to Diana Andersen RN
--- NOTE | 2025-09-19 10:11 | ED.GENADUL1 ---
HPI HPI - General Adult General Chief complaint: Arrhythmia/Palpitations Stated complaint: DIZZINESS, HEART PALPITATIONS, NAUSEA & VOMITING Time Seen by Provider: 09/19/25 05:41 Source: patient Mode of arrival: walk-in Limitations: no limitations History of Present Illness HPI narrative: 65-year-old female presented to the emergency department and was initially seen by Dr. Farah. She was signed out to me after discussing the case with him thoroughly. Please see his full history and physical exam. Related Data Home Medications ?Medication ?Instructions ?Recorded ?Confirmed bupropion HCl 300 mg 24 hr tablet, 300 mg PO DAILY 04/19/25 09/19/25 extended release buspirone 10 mg tablet 20 mg PO TID 04/19/25 09/19/25 ezetimibe 10 mg tablet 10 mg PO DAILY 04/19/25 09/19/25 lithium carbonate 150 mg capsule 150 mg PO DAILY 04/19/25 09/19/25 lithium carbonate 300 mg tablet 300 mg PO DAILY 04/19/25 09/19/25 metoprolol succinate 50 mg 50 mg PO Q12H 04/19/25 09/19/25 tablet,extended release 24 hr olanzapine 5 mg tablet 5 mg PO .q4 PRN agitation 04/19/25 09/19/25 ondansetron 4 mg disintegrating 4 mg PO .every 4 h PRN nausea and 04/19/25 09/19/25 tablet vomiting pantoprazole 40 mg tablet,delayed 40 mg PO .QD 09/19/25 09/19/25 release primidone 50 mg tablet 100 mg PO .QD 09/19/25 09/19/25 tizanidine 4 mg tablet 8 mg PO .QHS PRN muscle spasticity 09/19/25 09/19/25 Allergies Allergy/AdvReac Type Severity Reaction Status Date / Time No Known Drug Allergies Allergy Verified 09/19/25 05:41 PFSH PFSH Social History Little interest or pleasure in doing things: not at all Feeling down, depressed, or hopeless: not at all Exam Constitutional Vital Signs, click to edit/add: Last Vital Signs Temp 98 F 09/19/25 05:38 Pulse 48 L 09/19/25 09:50 Resp 23 H 09/19/25 09:50 BP 126/61 09/19/25 09:31 Pulse Ox 94 L 09/19/25 09:20 O2 Del Method Room Air 09/19/25 05:38 Course Vital Signs Vital signs: Vital Signs Temperature 98 F 09/19/25 05:38 Pulse Rate 44 L 09/19/25 05:38 Respiratory Rate 18 09/19/25 05:38 Blood Pressure 117/46 L 09/19/25 05:38 Pulse Oximetry 97 09/19/25 05:38 Oxygen Delivery Method Room Air 09/19/25 05:38 Temperature 98 F 09/19/25 05:38 Pulse Rate 48 L 09/19/25 09:50 Respiratory Rate 23 H 09/19/25 09:50 Blood Pressure 126/61 09/19/25 09:31 Pulse Oximetry 94 L 09/19/25 09:20 Oxygen Delivery Method Room Air 09/19/25 05:38 Medical Decision Making MDM Narrative Medical decision making narrative: Her workup is negative other than the bradycardia. She remains symptomatic with a rate in the mid to upper 40s. She is being admitted for observation. Treatment diagnosis and disposition were discussed with the patient. This bradycardia appears to be secondary to the single dose of beta-debora that she took last night. Lab Data Lab results reviewed: Yes I reviewed the patient's lab results Labs: Lab Results 09/19/25 Range/Units 05:50 WBC 9.7 (4.0-11.0) 10^3/uL RBC 5.14 (4.20-5.40) 10^6/uL Hgb 14.1 (12.0-16.0) g/dL Hct 43.8 (36.0-48.0) % MCV 85.2 (81.0-99.0) fL MCH 27.4 (26.7-34.0) pg MCHC 32.2 (29.9-35.2) g/dL RDW 13.9 (11.0-15.0) % Plt Count 441 (150-450) 10^3/uL MPV 8.6 L (9.5-13.5) fL Neut % (Auto) 62.8 (43.0-75.0) % Lymph % (Auto) 26.6 (20.5-60.0) % [place] % (Auto) 8.7 (1.7-12.0) % Eos % (Auto) 0.3 L (0.9-7.0) % Baso % (Auto) 1.0 (0.2-2.0) % Neut # (Auto) 6.1 (1.4-6.5) 10^3/uL Lymph # (Auto) 2.6 (1.2-3.8) 10^3/uL [place] # (Auto) 0.8 (0.3-0.8) 10^3/uL Eos # (Auto) 0.0 (0.0-0.7) 10^3/uL Baso # (Auto) 0.1 (0.0-0.1) 10^3/uL Abs Immat Gran (auto) 0.06 H (0.00-0.03) 10^3/uL Imm/Tot Granulo (auto) 0.6 H (0.0-0.5) % Sodium 136 (136-145) mmol/L Potassium 4.4 (3.5-5.1) mmol/L Chloride 103 (98-107) mmol/L Carbon Dioxide 25.7 (21.0-32.0) mmol/L Anion Gap 11.7 BUN 16.0 (7.0-18.0) mg/dL Creatinine 0.77 (0.55-1.02) mg/dL Est GFR ( Amer) >60 (>=60 mL/min/1.73m^2) Est GFR (Non-Af Amer) >60 (>=60 mL/min/1.73m^2) BUN/Creatinine Ratio 20.8 Glucose 130 H (74-106) mg/dL Calcium 9.7 (8.5-10.1) mg/dL Troponin I High Sens 4.5 (4.0-51.3) pg/mL ECG Data Attestation: I personally reviewed and interpreted this ECG as follows: (EKG on my interpretation shows sinus bradycardia) Discharge Plan Discharge Chief Complaint: Arrhythmia/Palpitations Clinical Impression: Bradycardia, sinus Patient Disposition: Admitted as Observation Time of Disposition Decision: 10:11 Condition: Fair
[2025-09-19] MEDS: GLUCAGON 1 MG/ML VIAL IM (12:03)
--- NOTE | 2025-09-19 12:08 | PM.HP ---
HPI H&P: HPI History of Present Illness Chief complaint: DIZZINESS, HEART PALPITATIONS, NAUSEA & VOMITING Narrative: Mrs Carpenter is a 65-year-old female who came to the emergency room complaining of feeling dizzy, feeling sick to her stomach and her her heart being slow. Patient was found to have bradycardia with a heart rate of 40. Patient reported that she has a tremor. She had been on the metoprolol for hypertension but Dr. Ramirez instructed her to stop metoprolol last week and started her yesterday on the propranolol. Patient does not know the dose. She took the first dose yesterday. A few hours after that she started feeling sick, nauseous as if she is going to pass out. No chest pain. No abdominal pain. Review of Systems ROS Status of ROS 10 or more systems reviewed and unremarkable except as noted in history and below [facility] Family History (Updated 09/19/25 @ 12:09 by Andree Maddox RN) Grandfather Family history of cancer Father Family history of CHF (congestive heart failure) Family history of hypertension Mother Family history of diabetes mellitus Social History Within the past year, how often did you have a drink containing alcohol: never Score interpretation: A score less than 3 is consistent with normal alcohol consumption. Do you use any of these nicotine containing products: vaping products Non-prescribed substance use: denies use Little interest or pleasure in doing things: not at all Feeling down, depressed, or hopeless: not at all Meds Home Medications and Allergies Home Medications ?Medication ?Instructions ?Recorded ?Confirmed ?Type bupropion HCl 300 mg 24 hr tablet, 300 mg PO DAILY 04/19/25 09/19/25 History extended release buspirone 10 mg tablet 20 mg PO TID 04/19/25 09/19/25 History ezetimibe 10 mg tablet 10 mg PO DAILY 04/19/25 09/19/25 History lithium carbonate 150 mg capsule 150 mg PO DAILY 04/19/25 09/19/25 History lithium carbonate 300 mg tablet 300 mg PO DAILY 04/19/25 09/19/25 History olanzapine 5 mg tablet 5 mg PO .q4 PRN agitation 04/19/25 09/19/25 History ondansetron 4 mg disintegrating 4 mg PO .every 4 h PRN nausea and 04/19/25 09/19/25 History tablet vomiting pantoprazole 40 mg tablet,delayed 40 mg PO .QD 09/19/25 09/19/25 History release primidone 50 mg tablet 100 mg PO .QD 09/19/25 09/19/25 History tizanidine 4 mg tablet 8 mg PO .QHS PRN muscle spasticity 09/19/25 09/19/25 History Allergies Allergy/AdvReac Type Severity Reaction Status Date / Time No Known Drug Allergies Allergy Verified 09/19/25 05:41 Exam Narrative Exam Narrative: [pt is awake and alert. oriented to place, time and person HEENT: [place] conjunctiva and NL buccal mucosa Neck: Supple, no tenderness Endocrine: No Thyromegaly. Vascular: No JVD or carotid bruit. Lymphatic: No cervical lymphadenopathy. Chest: CTA no DTP. Heart regular rhythm, bradycardic Abd: Soft, no tenderness, no rebound and no rigidity. Increase abd girth therefore clinically I could not exclude the possibility of intra abd mass or organomegaly. LE: No cyanosis or clubbing, no varices or edema. Neuro: A A O. Nl speech, comprehension and attention. Nl and symetrical motor and tone examination through out. []] Constitutional Vital Signs, click to edit/add: Last Vital Signs Temp 98 F 09/19/25 05:38 Pulse 47 L 09/19/25 11:54 Resp 18 09/19/25 10:40 BP 135/63 09/19/25 10:31 Pulse Ox 95 09/19/25 10:40 O2 Del Method Room Air 09/19/25 05:38 Results Labs Labs: Short CBC 09/19/25 Range/Units 05:50 WBC 9.7 (4.0-11.0) 10^3/uL Hgb 14.1 (12.0-16.0) g/dL Hct 43.8 (36.0-48.0) % Plt Count 441 (150-450) 10^3/uL BMP 09/19/25 05:50 Sodium 136 Potassium 4.4 Chloride 103 Carbon Dioxide 25.7 BUN 16.0 Creatinine 0.77 Glucose 130 H Calcium 9.7 Assessment and Plan Assessment and Plan (1) Bradycardia, sinus: Plan Sinus bradycardia, likely caused by propranolol Patient is stated that her PCP stopped her metoprolol last week and started her on propranolol yesterday for tremor. Unknown dose. Patient did not have any symptoms related to metoprolol. No heart block Patient was given atropine, calcium in the emergency room department. Her heart rate is up to 45?50 I will give her 1 dose of glucagon. Hold beta-debora Continue telemetry monitoring Check TSH rule out hypothyroidism as potential underlying contributing factor. Troponin is negative As needed atropine. Patient stated that she had a cardiac cath in [place] last year and did not require any stents. Resting tremor. Patient tried the primidone before but that caused her diarrhea. Propranolol caused her to have the bradycardia Patient would need to follow-up with neurology to investigate this further, exclude underlying etiology and initiate treatment plan Depression and anxiety Continue preadmission home medication
[2025-09-19 12:32] LABS: Magnesium 2.2 mg/dL (1.8-2.4)
--- NOTE | 2025-09-19 13:22 | SWNOTE1 ---
Medicare Outpatient Observation Notice reviewed and discussed with patient. Pt. verbalized understanding and signed the form. Original given to patient and copy placed in patient?s chart.
--- NOTE | 2025-09-19 13:22 | SWNOTE1 ---
SW met with pt to discuss dc needs. Pt lives at home and her daughter and grand-daughter live with her at this time. Pt is independent and does not have any services coming in. Pt does get food stamps. Pt denies any discharge needs at this time. SW to follow as needed.
--- NOTE | 2025-09-19 13:32 | ECG_ITS ---
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
[2025-09-19] MEDS: PANTOPRAZOLE SODIUM 40 MG TABLET.DR PO (13:34)
[2025-09-19] MEDS: BUSPIRONE HCL 10 MG TABLET PO ×2 (13:34→21:36)
[2025-09-19] MEDS: FLU VACC TS2025-26(65YR UP)/PF 180 MCG/0.5 ML SYRINGE IM (13:34)
[2025-09-19] MEDS: ONDANSETRON 4 MG RAPDIS TABLET PO (13:39)
[2025-09-19] MEDS: LITHIUM CARBONATE 150 MG CAPSULE 600 MG PO (21:36)
[2025-09-20] VITALS (19 sets, daily range): BP systolic 139–160; BP diastolic 54–84; PULSE 51–87; TEMP 36.7–36.9; O2SAT 92–94
[2025-09-20] MEDS: ACETAMINOPHEN 325 MG TABLET 650 MG PO ×3 (00:47→20:36)
[2025-09-20] MEDS: ONDANSETRON 4 MG RAPDIS TABLET PO ×3 (00:48→15:42)
[2025-09-20] MEDS: BUSPIRONE HCL 10 MG TABLET PO ×3 (06:13→21:54)
[2025-09-20] MEDS: PANTOPRAZOLE SODIUM 40 MG TABLET.DR PO (06:13)
--- NOTE | 2025-09-20 08:00 | ECG_ITS ---
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 Measurements Intervals [place] Rate: 50 P: 34 NE: 173 QRS: 49 QRSD: 104 T: 42 QT: 395 QTc: 362 Interpretive Statements SINUS BRADYCARDIA MINIMAL ST DEPRESSION [0.025+ mV ST DEPRESSION] Borderline ECG Compared to ECG 09/19/2025 13:15:58 No significant changes Electronically Signed On 09-20-2025 6:39:08 EDT by JESSIE ARNETT M.D.
--- NOTE | 2025-09-20 08:00 | CM.NOTE ---
Rounds made with Dr. Templeton, discussed with pt reason for admission and plan of care. Pt OBS status at this time, no discharge today.
--- NOTE | 2025-09-20 08:07 | P.PN_ITS ---
Progress Note: Subjective Subjective Interval history: Patient is feeling better. No further dizziness Exam Narrative Exam Narrative: [pt is awake and alert. oriented to place, time and person HEENT: [place] conjunctiva and NL buccal mucosa Neck: Supple, no tenderness Endocrine: No Thyromegaly. Vascular: No JVD or carotid bruit. Lymphatic: No cervical lymphadenopathy. Chest: CTA no DTP. Heart regular and bradycardic. Heart rate is in the 50s. Abd: Soft, no tenderness, no rebound and no rigidity. Increase abd girth therefore clinically I could not exclude the possibility of intra abd mass or organomegaly. LE: No cyanosis or clubbing, no varices or edema. Neuro: A A O. Nl speech, comprehension and attention. Nl and symetrical motor and tone examination through out. []] Constitutional Vital Signs, click to edit/add: Last Vital Signs Temp 98.3 F 09/20/25 07:48 Pulse 54 L 09/20/25 07:48 Resp 14 09/20/25 07:48 BP 143/84 H 09/20/25 07:48 Pulse Ox 92 L 09/20/25 07:48 O2 Del Method Room Air 09/20/25 07:48 Progress Note: A&P Assessment and Plan (1) Bradycardia, sinus: Plan Sinus bradycardia, likely caused by propranolol Patient is stated that her PCP stopped her metoprolol last week and started her on propranolol yesterday for tremor. Unknown dose. Patient did not have any symptoms related to metoprolol. No heart block, just sinus bradycardia Patient was given atropine, calcium in the emergency room department. Her heart rate is up to 45?50 Patient also was given glucagon Hold beta-debora Continue telemetry monitoring Check TSH rule out hypothyroidism as potential underlying contributing factor. TSH is normal in July 2025 Troponin is negative As needed atropine. Patient stated that she had a cardiac cath in [place] last year and did not require any stents. Heart rate improved over the last 24 hours but continues to be bradycardic. Keep patient for another 24 hours Resting tremor. Patient tried the primidone before but that caused her diarrhea. Propranolol caused her to have the bradycardia Patient would need to follow-up with neurology to investigate this further, exclude underlying etiology and initiate treatment plan Depression and anxiety Continue preadmission home medication DVT prophy Lovenox
[2025-09-20] MEDS: LITHIUM CARBONATE 150 MG CAPSULE 450 MG PO (09:16)
[2025-09-20] MEDS: AMLODIPINE BESYLATE 5 MG TABLET 2.5 MG PO ×2 (09:16→17:51)
[2025-09-20] MEDS: BUPROPION HCL 150 MG XL TABLET 24H 300 MG PO (09:17)
[2025-09-20] MEDS: TIZANIDINE HCL 4 MG TABLET 8 MG PO (21:54)
[2025-09-20] MEDS: LITHIUM CARBONATE 150 MG CAPSULE 600 MG PO (21:54)
[2025-09-21] VITALS (9 sets, daily range): BP systolic 89–126; BP diastolic 61–64; PULSE 45–62; TEMP 36.7–37.2; O2SAT 93–95
[2025-09-21] MEDS: PANTOPRAZOLE SODIUM 40 MG TABLET.DR PO (05:51)
[2025-09-21] MEDS: BUSPIRONE HCL 10 MG TABLET PO (05:51)
--- NOTE | 2025-09-21 07:45 | CM.NOTE ---
Rounds made with Dr. Templeton, pt will discharge to home and f/u with PCP. No discharge needs identified.
[2025-09-21] MEDS: AMLODIPINE BESYLATE 5 MG TABLET PO (08:43)
[2025-09-21] MEDS: BUPROPION HCL 150 MG XL TABLET 24H 300 MG PO (08:43)
[2025-09-21] MEDS: ACETAMINOPHEN 325 MG TABLET 650 MG PO (08:43)
[2025-09-21] MEDS: LITHIUM CARBONATE 150 MG CAPSULE 450 MG PO (08:43)
[2025-09-21] MEDS: ONDANSETRON 4 MG RAPDIS TABLET PO (09:35)
--- NOTE | 2025-09-21 10:08 | PM.DS1 ---
DS: Providers Provider Date of admission: 09/19/25 11:04 Primary care physician: Thanh Ramirez MD DS: Diagnosis Discharge Diagnosis (1) Bradycardia, sinus: Plan As listed above DS: Summary Hospital Course Hospital Course: Mrs. Carpenter is a 65-year-old female who came in with dizziness after she was started on propranolol for tremor. Sinus bradycardia, likely caused by propranolol Patient is stated that her PCP stopped her metoprolol last week and started her on propranolol yesterday for tremor. Unknown dose. Patient did not have any symptoms related to metoprolol. No heart block, just sinus bradycardia Patient was given atropine, calcium in the emergency room department. Her heart rate is up to 45?50 Patient also was given glucagon Hold beta-debora Continue telemetry monitoring Check TSH rule out hypothyroidism as potential underlying contributing factor. TSH is normal in July 2025 Troponin is negative As needed atropine. Patient stated that she had a cardiac cath in [place] last year and did not require any stents. Heart rate improved over the last 48 hours. Now heart rate is hovering between 55-65 Patient is asymptomatic. Patient will be discharged home after beta-debora. Hypertension. Patient was taken off beta-debora. She was started amlodipine 2.5 mg daily but her blood pressure continues to rise systolically above 160. Dose was increased to 5 mg daily. This will need to be adjusted in the outpatient setting to keep systolic between 140 and 160. Resting tremor. Patient tried the primidone before but that caused her diarrhea. Propranolol caused her to have the bradycardia Patient would need to follow-up with neurology to investigate this further, exclude underlying etiology and initiate treatment plan Depression and anxiety Continue preadmission home medication Psychiatric: Polypharmacy will need to be adjusted by psychiatrist. DVT kenia Chase Time Spent with Patient Time attestation: Total time spent providing and/or coordinating discharge services: Exam Constitutional Vital Signs, click to edit/add: Last Vital Signs Temp 98.3 F 09/21/25 07:51 Pulse 56 L 09/21/25 09:55 Resp 16 09/21/25 04:00 BP 123/61 09/21/25 07:51 Pulse Ox 93 L 09/21/25 07:51 O2 Del Method Room Air 09/21/25 07:51 DS: Data Data Completed and Pending Labs on day of discharge: Labs from last 24 hours 09/21/25 09/20/25 08:01 17:00 POC Glucose 88 84 Discharge Plan Discharge Disposition: Home, Self-Care Condition: Fair Discharge Medications: New amlodipine 5 mg Tablet 5 mg PO QD Qty: 30 0RF Continued bupropion HCl 300 mg tablet extended release 24 hr 300 mg PO DAILY ezetimibe 10 mg tablet 10 mg PO DAILY lithium carbonate 150 mg capsule 150 mg PO DAILY lithium carbonate 300 mg tablet 300 mg PO DAILY Rx Instructions: 450mg in AM, 600mg at bedtime olanzapine 5 mg tablet 5 mg PO .q4 PRN (Reason: agitation) pantoprazole 40 mg tablet,delayed release (DR/EC) 40 mg PO .QD spironolactone 25 mg tablet 25 mg PO DAILY PRN (Reason: edema) Vraylar 6 mg capsule 6 mg PO .QHS Rx Instructions: bedtime lithium carbonate 300 mg tablet 600 mg PO .qhs Changed tizanidine 4 mg tablet 4 mg PO .QHS PRN (Reason: muscle spasticity) Qty: 0 0RF buspirone 10 mg tablet 10 mg PO TID Qty: 0 0RF Discontinued ondansetron 4 mg tablet,disintegrating 4 mg PO .every 4 h PRN (Reason: nausea and vomiting) Print Language: Albanian Forms: Portal Instructions Follow Up Appointments: Dr. Ramirez September 26, 2025 at 10:45am [address] [place] [address]
--- NOTE | 2025-09-21 13:11 | NUTR.NU ---
PO intakes of regular diet are consistently 75% and meet pt's estimated nutrient requirements. N/V resolved. No dietary concerns at this time.
--- NOTE | 2025-09-24 12:20 | CM.DCFOLLOWU ---
Person spoke with:Ebony How are you feeling? Much better How is your pain? No pain Did you understand your discharge instructions? Yes Do you have any questions about your discharge instructions? No Were you given any prescriptions at discharge? Yes Were you able to get your prescriptions filled? Yes Do you understand how to take your medications as ordered? Yes Do you have any questions about your follow up appointment and do you plan to keep your follow up appointment? No questions. She plans on keeping her appt with Dr Ramirez on 09/27/2025. Is there anything else that you would like to discuss? No Questions/Comments/Concerns/Other:
== END 2025-09-21 12:14 | disposition home or self-care (01) ==
LOC: ER 10:11 → MS 11:07
PROVIDERS: Student in an Organized Health Care Education/Training Program; Admitting Provider Internal Medicine; Emergency Provider Emergency Medicine; PCP Family Medicine; Visit Provider Internal Medicine
DX: R00.1 Bradycardia, unspecified (principal); I10 Essential (primary) hypertension; Z79.899 Other long term (current) drug therapy; F17.290 Nicotine dependence, other tobacco product, uncomplicated; R25.1 Tremor, unspecified; F32.A Depression, unspecified; F41.9 Anxiety disorder, unspecified; T44.7X5A Adverse effect of beta-adrenoreceptor antagonists, initial encounter; Z23 Encounter for immunization
CPT/HCPCS: 36415; 80048; 82948; 83735; 84484; 85025; 90662; 93005; 96365; 96372; 96375; 96376; 99285; G0008; G0378; J0461; J0613; J1610; Q0162

== ENCOUNTER 2025-10-02 06:39 | Outpatient (OUT) | payer MEDICARE, SELFPAY ==
--- OUTSIDE RECORDS SUMMARY | 2025-01-02 10:00 | XMS_ITS ---
Author Organization [facility] in [place] Address [address] [place] [address] Care Team Providers Care Pulley Maintainer Name Role Phone Curtis Ramirez Primary Care Provider [phone] REASON FOR VISIT Medicare [employer] Encounters Encounter Location Date Provider Diagnosis [facility] [address] [facility] [place] [address] 01/02/2025 Curtis Ramirez Plan Of Treatment No Information Progress Notes * Ebony MEDLEYDOB:[birth year] (65 yo F)Acc No.[id number]:01/02/2025 UNLOCKED PROGRESS NOTE Progress Note Patient: Ebony OSMAN :?Thanh Ramirez (TTC), MDDOB:1960???Age: 64 Y???Sex:FemaleDate:01/02/2025Phone:[phone]:[address] [place] [address] Subjective: * Chief Complaints: * 1 . Medicare Well[employer]. * Medical History: Objective: * Vitals: Assessment: Plan: * Treatment: * * Electronic signature of Curtis Ramirez MD, [id number] on 10/02/2025 at 06:42 AM EST Sign off status: PendingVisit Status:?CANC (Cancelled) * Provider: Arash Ramirez MD (TTC) Date: 0 01/02/2025 Generated for Printing/Faxing/eTransmitting on:?10/02/2025 06:42 AM EST
--- OUTSIDE RECORDS SUMMARY | 2025-09-26 05:45 | XMS_ITS ---
Author Organization [facility] [place] Address [address] [place] [address] Care Team Providers Care Client Solutions Manager Name Role Phone Curtis Ramirez Primary Care Provider [phone] Allergies Allergen (clinical drug ingredient) Drug/Non Drug Allergy documented on EMR Reaction Allergy Type Onset Date Status primidone Primidone diarrhea Drug Allergy Active REASON FOR VISIT [facility] d/c [facility] 09/21 bradycardia- BP has been fluctuating and chest is tight Medications Medication SIG (Take, Route, Frequency, Duration) Notes Start Date End Date Status Lisinopril 10 MG 1 tablet Orally Once a day; Dur ation: 30 days 5ActivetiZANidine HCl 4 MG2 tablet Orally at bedtime as needed; Duration: 30 3ActiveWellbutrin XL 150 MG1 tablet in the morning Orally Once a dayActiveVraylar 6 MGTAKE 1 CAPSULE BY MOUTH ONCE DAILY at bedtime Oral; Duration: 30 DaysActiveTolterodine Tartrate 2 MG1 tablet Orally Twice a day; Duration: 30 days5ActivePromethazine HCl 25 MG1 tablet as needed Orally q6h; Duration: 5 5ActiveSpironolactone 25 MG1 tablet Orally Once a dayActiveProtonix 40 MG1 tablet Orally Once a day; Duration: 30 days 5ActiveOndansetron 4 MG1 tablet on the tongue and allow to dissolve Orally Q 6 hours PRN; Duration: 30 daysActiveMyrbetriq 25 MG1 tablet Orally Once a day; Duration: 30 days5ActiveMirtazapine 30 MG1 tablet at bedtime Orally Once a dayActiveLithium Carbonate 300 MGas directed Orally 1am and 2 hs ActiveLithium Carbonate 150 MGin the a.m Orally dailyActiveMysoline 50 MG2 tablets Orally Once a day; Duration: 30 days5ActiveLactulose 20 GM/30ML 15 - 30 mL as needed Orally Once a day - up to bid; Duration: 30 days09/02/2023 ActiveHyoscyamine Sulfate 0.125 MG1-2 tabs SL SL every 4 hrs PRN abd pain 5ActivebusPIRone HCl 10 MG2 Orally tidActiveAtorvastatin Calcium 40 MG1 tablet Orally Once a dayActiveamLODIPine Besylate 5 MG1 tablet Orally Once a day 5Active Social History Tobacco Use: Social History Observation Description Date Details (start date - stop date) Former Smoker 11/22/1974 - 11/22/2019 Tobacco Use/Smoking Question Answer Notes Patient is a former smoker When did you start smoking?11/22/1974When did you stop smoking?11/22/2019 Vital Signs Weight 174.8 lbs 09/26/2025 Height 63 in 09/26/2025 Blood pressure systolic 132 mm Hg 09/26/20 25 Blood pressure diastolic 90 mm Hg 025 Heart Rate 66 /min 09/26/2025 BMI 30.96 kg/m2 09/26/2025 Oximetry 99 % 09/26/2025 Procedures Procedure Date Ordered Date Performed Result Body Sit e EKG w Interp & Report - performed 09/26/2025 N/AHolter Monitor - 3 days up to 14 days09/26/2025N/A*CARDIO Stress Test - Camilla Vlomejr3309/26/2025N/A Encounters Encounter Location Date Provider Diagnosis [facility] [address] [place] [address] 09/26/2025 Curtis Hoy Pulmonary hypertensi on I27.20 and Chest pain R07.9 Assessments Encounter Date Diagnosis (ICD Code) Assessment Notes Treatment Notes Treatment Clinical Notes Section Notes 09/26/2025 Pulmonary hypertension (ICD-10 - I27.20) 09/26/2025hest pain (ICD-10 - R07.9) Plan Of Treatment Medication Medication Name Sig Start Date Stop Date Notes Lisinopril 10 MG 1 tablet Orally Once a day; Duration: 30 days 09/26/2025 Pending Test Test Name Order Date EKG w Interp & Report - performed 2024 Holter Monitor - 3 days up to 14 days *CARDIO Stress Test - Lexiscan Nuclear 1 11/26/2024 Progress Notes * Ebony CARPENTERDOB:[birth year] (65 yo F)Acc No.[id number]:09/26/2025 Progress Note Patient: Ebony OSMAN :?Thanh Ramirez ([facility]), MDDOB:1960???Age: 65 Y???Sex:FemaleDate:09/26/2025Phone:[phone]:[address], [place]-[id number] In:10:36 AM ESTCheck Out:11:36 AM EST Subjective: * Chief Complaints: * T CM d/c [facility] 09/21 bradycardia- BP has been fluctuating and chest is tight * HPI: ???General:? [place] pain and bradycardia. ???Interim History:? Patient presents for high blood pressure check. Doing well on medication. Denies chest pain, palpitations, lightheadedness, or vision changes. * ROS: ???General/Constitutional:?Lightheadedness?denies.?Fever?denies.?Headache?denies.?Cardiovascular:?Chest pain?denies.?Palpitations?denies.?Respiratory:?Cough?denies.?Shortness of breath?denies.? * Active Problem List I27.20 Pulmonary hypertensi on Modified On:09/02/2023W/U Status:hvjvgzwnxB36.30Bipolar depression Modified On:09/02/2023/U Status:berwsgblbT71.9Abdominal wall hernia Modified On:08/19/2023 Status:bymvqimiqM81.33OSA (obstructive sleep apnea) Modified On:08/19/2023 Status:wlfjsssqsG87.00High cholesterol Modified On:08/19/2023 Status:fvhbtrxctY40.41Shoulder impingement syndrome, right Modified On:08/19/2023 Status:dgnuvigogP48.81Restless leg syndrome Modified On:09/02/2023 Status:sbqdcufjdU75.3Memory loss Modified On:08/19/2023 Status:vejsuapgcP62.9Enlarged thyroid Modified On:08/19/2023 Status:ivchmzxaeT90.3Rectal prolapse Modified On:08/19/2023 Status:tbyerkzlcV94.10Narcotic abuse Modified On:08/19/2023 Status:drmihkqsqF87.00Pure hypercholesterolemia Modified On:09/02/2023 Status:nhvsjzvcuJ34.851Suicidal ideation Modified On:08/19/2023 Status:bnpxvnbnoC71Efbxsks incontinence Modified On:08/19/2023 Status:fuqaqpflfP40.16Lumbar radicular pain Modified On:09/27/2023 Status:tzcapkrblI34.9Acute bronchiolitis Modified On:10/04/2023 Status:fhfavwrmhY27.0Localized edema Modified On:12/17/2023 Status:rhvqmweyfW62.2Mixed hyperlipidemia Modified On:12/17/2023 Status:hiisacpdbW16.09Other forms of dyspnea Modified On:12/17/2023 Status:xgpdrwwpiY97Lmyhqvyqt (primary) hypertension Modified On:12/17/2023 Status:ojkvlkzqvR11.1High triglycerides Modified On:02/12/2025U Status:sxkyqyqehJ96.829Elevated WBCs Modified On:02/12/2025 Status:hhpslvqcyH30.1Tremor Modified On:08/02/2025 Status:mrojuatyrJ07.9GERD without esophagitis Modified On:09/11/2025W/U Status:gofizsjeaH93.2Esophageal stricture Modified On:08/02/2025W/U Status:ipxgnvccvL61.7Diarrhea Modified On:08/02/2025W/U Status:ujrgptytdA45.81Sinus congestion Modified On:08/02/2025W/U Status:confirmed * Medical History: * Surgical History: T A H and B S O Rotator cuff repair 2018herniorrhaphy with mesh 2020Heart Cath 2021EGD 2021EG w/biopsy and dilation 08/22/2025 * Hospitalization/Major Diagno stic Procedure: s ee above mental health * Family History: F ather: alive, alzheimers. M other: alive, diagnosed with Diabetes. B rother(s): alive, alcoholism. at 62. S ister(s): alive, bipolar,depression and thyroid. 1 brother(s) , 1 sister(s) - healthy. 1 son(s) , 1 daughter(s) - healthy. . * Social History: ???Tobacco Use:?Tobacco Use/Smoking?Patient is a?former smoker ?When did you start smoking??11/22/1974 ?When did you stop smoking??11/22/2019 * Medications: T akingamLODIPine Besylate 5 MG Tablet 1 tablet Orally Once a day Atorvastatin Calcium 40 MG Tablet 1 tablet Orally Once a day busPIRone HCl 10 MG Tablet 2 Orally tid Hyoscyamine Sulfate 0.125 MG Tablet Sublingual 1-2 tabs SL SL every 4 hrs PRN abd pain Lactulose 20 GM/30ML Solution 15 - 30 mL as needed Orally Once a day - up to bid [place] Carbonate 150 MG Capsule in the a.m Orally daily [place] Carbonate 300 MG Capsule as directed Orally 1am and 2 hs Mirtazapine 30 MG Tablet 1 tablet at bedtime Orally Once a day Myrbetriq(Mirabegron ER) 25 MG Tablet Extended Release 24 Hour 1 tablet Orally Once a day Mysoline(Primidone) 50 MG Tablet 2 tablets Orally Once a day Ondansetron 4 MG Tablet Disintegrating 1 tablet on the tongue and allow to dissolve Orally Q 6 hours PRN Promethazine HCl 25 MG Tablet 1 tablet as needed Orally q6h Protonix(Pantoprazole Sodium) 40 MG Tablet Delayed Release 1 tablet Orally Once a day Spironolactone 25 MG Tablet 1 tablet Orally Once a day tiZANidine HCl 4 MG Tablet 2 tablet Orally at bedtime as needed Tolterodine Tartrate 2 MG Tablet 1 tablet Orally Twice a day Vraylar(Cariprazine HCl) 6 MG Capsule TAKE 1 CAPSULE BY MOUTH ONCE DAILY at bedtime Oral Wellbutrin XL(buPROPion HCl ER (XL)) 150 MG Tablet Extended Release 24 Hour 1 tablet in the morning Orally Once a day Taking amLODIPine Besylate 5 MG Tablet 1 tablet Orally Once a day Taking Atorvastatin Calcium 40 MG Tablet 1 tablet Orally Once a day Taking busPIRone HCl 10 MG Tablet 2 Orally tid Taking Hyoscyamine Sulfate 0.125 MG Tablet Sublingual 1-2 tabs SL SL every 4 hrs PRN abd pain Taking Lactulose 20 GM/30ML Solution 15 - 30 mL as needed Orally Once a day - up to bid Taking [place] Carbonate 150 MG Capsule in the a.m Orally daily Taking [place] Carbonate 300 MG Capsule as directed Orally 1am and 2 hs Taking Mirtazapine 30 MG Tablet 1 tablet at bedtime Orally Once a day Taking Myrbetriq(Mirabegron ER) 25 MG Tablet Extended Release 24 Hour 1 tablet Orally Once a day Taking Mysoline(Primidone) 50 MG Tablet 2 tablets Orally Once a day Taking Ondansetron 4 MG Tablet Disintegrating 1 tablet on the tongue and allow to dissolve Orally Q 6 hours PRN Taking Promethazine HCl 25 MG Tablet 1 tablet as needed Orally q6h Taking Protonix(Pantoprazole Sodium) 40 MG Tablet Delayed Release 1 tablet Orally Once a day Taking Spironolactone 25 MG Tablet 1 tablet Orally Once a day Taking tiZANidine HCl 4 MG Tablet 2 tablet Orally at bedtime as needed Taking Tolterodine Tartrate 2 MG Tablet 1 tablet Orally Twice a day Taking Vraylar(Cariprazine HCl) 6 MG Capsule TAKE 1 CAPSULE BY MOUTH ONCE DAILY at bedtime Oral Taking Wellbutrin XL(buPROPion HCl ER (XL)) 150 MG Tablet Extended Release 24 Hour 1 tablet in the morning Orally Once a day DiscontinuedPropranolol HCl ER 80 MG Capsule Extended Release 24 Hour 1 capsule Orally Once a day , Notes to Pharmacist: stopping metoprololMedication List reviewed and reconciled with the patientDiscontinued Propranolol HCl ER 80 MG Capsule Extended Release 24 Hour 1 capsule Orally Once a day , Notes to Pharmacist: stopping metoprololMedication List reviewed and reconciled with the patient * Allergies: P rimidone: diarrhea - Side Effectsno[Allergies Verified] Objective: * Vitals: W t:174.8lbs, Ht: 63 in, BP:132/90mm Hg, HR:66/min, BMI:30.96Index, Oxygen sat %:99%, Ht-cm: 160.02 cm, Wt-k.29 kg. * Examination: ???General Examination: ?GENERAL APPEARANCE:? in no acute distress, well developed,well nourished.?LUNGS:? clear to auscultation bilaterally.?CARDIO:? regular rate and rhythm, S1, S2 normal, no murmurs.? Assessment: * Assessment: 1.?Chest pain - R07.9 (Primary)???2.?Pulmonary hypertension - I27.20? ? Plan: * Treatment: ?Procedure: Holter Monitor - 3 days up to 14 days* 7 days ?Procedure: *CARDIO Stress Test - Lexiscan Nuclear2.?Pulmonary hypertension? Start Lisinopril Tablet, 10 MG, 1 tablet, Orally, Once a day, 30 days, 30, Refills 11.?Procedure: EKG w Interp & Report - performed * Procedure Codes: 9 9495 [facility], Modifiers: 25 [id number] EKG, WINTER. * Preventive Medicine: ??Screenings/Counseling:?BMI ACTION PLAN?Above Normal BMI Follow-up?Dietary management education, guidance, and counseling * * Sign off status: CompletedVisit Status:?CHK (Check Out) true * Provider: Arash Ramirez ([facility])MD Date: 11/26/2024 Generated for Printing/Faxing/eTransmitting on:?10/02/2025 06:42 AM EST History and Physical Notes * HPI (History of Present Illness) CategorySub-CategoryDetailNotesCategory NotesGeneralChet pain and bradycardia Examination CategorySub-CategoryDetailNotesCategory NotesGeneral ExaminationGENERAL APPEARANCE:in no acute distress, well developed, well nourishedCARDIO:regular rate and rhythm, S1, S2 normal, no murmursLUNGS:clear to auscultation bilaterally
--- OUTSIDE RECORDS SUMMARY | 2025-10-02 06:41 | XMS_ITS | CCD ---
Author Organization [facility] Care Team Providers Care Transition Manager Name Role Phone Nola Ramirez Primary Care Physician Unavailab Nolan Ron Attending Physician Unavailable NOLA RAMIREZ Referring Unavailable NOLA RAMIREZ Primary Care Unavailable JESSIE ARNETT V Attending Unavailable JESSIE ARNETT V Admitting Unavailable Nola Ramirez Primary Care Physician Florence Pittman Unavailable Unavailable ANNIE, DR VACA Primary Care Unavailable BART YOUNG Attending Unavailable BART YOUNG Admitting Unavailable KOKI, DR CONSUELO [place] Consulting Unavailable ANNIE, DR VACA Primary Care Unavailable SAMSA, GAGAN Attending Unavailable SAMSAGAGAN Admitting Unavailable SAMSAGAGAN Consulting Unavailable ANNIE, DR VACA Primary Care Unavailable KINJAL, ANTONY Attending Unavailable KINJAL, ANTONY Admitting Unavailable WEST, DR CONSUELO [place] Consulting Unavailable ANNIE, DR VACA Primary Care Unavailable KINJAL, ANTONY Attending Unavailable KINJAL, ANTONY Admitting Unavailable KINJALANTONY Consulting Unavailable MISC, DR ARREGUIN Consulting Unavailable ANNIE, DR VACA Primary Care Unavailable MISC, DR ARREGUIN Attending Unavailable MISC, DR ARREGUIN Admitting Unavailable NILL, DR SCHULER Consulting Unavailable ANNIE, DR VACA Primary Care Unavailable NILL, DR SCHULER Attending Unavailable NILL, DR SCHULER Admitting Unavailable ANNIE, DR VACA Primary Care Unavailable KINJAL, ANTONY Attending Unavailable KINJAL, ANTONY Admitting Unavailable NILL, DR SCHULER Consulting Unavailable ANNIE, DR VACA Primary Care Unavailable NILL, DR SCHULER Attending Unavailable NILL, DR SCHULER Admitting Unavailable RAVINDRABIJAN Consulting Unavailable KUCHIPUDI, MARK Consulting Unavailable ANNIE, DR VACA Consulting Unavailable ANNIE, DR VACA Primary Care Unavailable ANNIE, DR VACA Attending Unavailable ANNIE, DR VACA Admitting Unavailable Zieber, DR Valenzuela Consulting Unavailable ANNIE, DR VACA Primary Care Unavailable SAMSA, GAGAN Attending Unavailable SAMSA, GAGAN Admitting Unavailable SAMSA, GAGAN Consulting Unavailable MOUKARBEL, DR ROMAN Consulting Unavailable YUDITHY, DR VACA Primary Care Unavailable MOUKARBEL, DR ROMAN Attending Unavailable MOUKARBEL, DR ROMAN Admitting Unavailable WEST, DR CONSUELO [place] Consulting Unavailable ANNIE, DR VACA Primary Care Unavailable SAMSA, GAGAN Attending Unavailable SAMSA, GAGAN Admitting Unavailable SAMSA, GAGAN Consulting Unavailable KINJAL, ANTONY Consulting Unavailable ANNIE, DR VACA Primary Care Unavailable KINJAL, ANTONY [...] Unavailable Nola Ramirez MD Primary Care Provider [phone] Dereck Walker MD Attending Provider [phone] Nola Ramirez MD Attending Provider JESSIE ARNETT Attending Unavailable Nola Ramirez MD Primary Care Provider [phone] Dereck Walker MD Attending Provider [phone] Ly DO Candi L Attending Provider Ly DO Candi L Other Provider Nola Ramirez Primary Care Unavailable Ly, Candi L Admitting Unavailable Ifeoma Candi L Attending Unavailable Nola Ramirez Admitting Unavailable Nola Ramirez Attending Unavailable Nola Ramirez Primary Care Unavailable Dereck Walker Admitting Unavailab le Dereck Walker Attending Unavailab le Allergies Allergy ClassificationReported Allergen(s)Allergy TypeDate of OnsetReaction(s) Facility (1 source)60513,00Drug allergy (disorder)75-62-7520Qbf [facility] Repository (1 source)oxyCODONE; Translations: [OxyCODONE Hydrochloride][facility] ([facility] source)No Known Medication Allergies; Translations: [No Known Medication Allergies]Propensity to adverse reactions (disorder)[facility] Medications Current Medications MedicationDrug Class(es)DatesSig (Normalized)Sig (Original)aspirin 81 mg delayed release oral tablet (2 sources)Platelet Aggregation Inhibitor, Nonsteroidal Anti-inflammatory Drug Start: 99-97-3549rrzu 1 tablet by mouth once dailyaspirin 81 mg Oral EC Tab 81 mg = 1 tab(s), Oral, Daily, Refills(s) 0 Start Date: 08/26/22 Status: Ordered atorvastatin 40 mg oral tablet (2 sources)HMG-CoA Reductase InhibitorStart: 43-11-7843bmhlwmmrztqu 40 mg Tab Refills(s) 0 Start Date: 08/26/22 Status: OrderedbuPROPion (18 sources)AminoketoneStart: 31-30-2809pcVAQYhku 150 mg ER Tab Refills(s) 0 Start Date: 08/26/22 Status: OrderedStart: 65-19-1022dori 1 tablet by mouth once dailyBupropion Hcl 150 mg Tablet Extended Release 24 Hr Active 150 MG PO Daily March 31, 2022 12:00am Complies with drug therapyStart: 03-27-2022 End: 30-60-6784Lmotfkmhd Hcl 300 mg tablet extended release 24 hr Discontinued 450 MG PO Daily March 27, 2022 8:27am March 31, 2022 11:44amStart: 06-13-2019 End: 58-93-7886oglp 1 tablet by mouth once dailyBupropion Hcl 300 mg Tablet Extended Release 24 Hr Discontinued 300 MG PO Daily June 13, 2019 12:00am March 27, 2022 8:27amStart: 06-01-2019 End: 10-01-7488oqzm 1 tablet by mouth once dailyBupropion Hcl (Wellbutrin Xl) 150 mg tablet extended release 24 hr Discontinued 150 MG PO Daily June 01, 2019 12:00am June 13, 2019 12:29pmStart: 02-27-2019 End: 19-26-5013wywj 1 tablet by mouth once dailyBupropion Hcl (Wellbutrin Sr) 150 mg Tablet Sustained-Release 12 Hr Discontinued 1 TAB PO Daily February 27, 2019 12:00am March 07, 2019 11:10ambusPIRone hydrochloride 15 mg oral tablet (8 sources)Start: 14-44-4870jsls 1 tablet by mouth once dailybusPIRone 15 mg Tab 15 mg = 1 tab(s), Oral, Daily, Refills(s) 0 Start Date: 08/26/22 Status: Ordered Start: 80-05-2664jive 1 tablet by mouth three times dailyBuspirone 15 mg Tablet Active 15 MG PO Three times daily 45 15 March 31, 2022 12:00am Complies withdrug therapyStart: 08-15-2018 End: 24-26-5958bqcr 20 mg by mouth three times dailyBuspirone 20 MG Oral Three times daily 180 August 15, 2018 DiscontinuedStart: 08-15-2018 End: 38-12-8551ngdj 2 tablets by mouth three times dailyBuspirone 10 mg Tablet Discontinued 20 MG PO Three times daily 180 August 15, 2018 12:00am June 01, 2019 4:14pmcariprazine 6 mg oral capsule (14 sources)Atypical AntipsychoticStart: 19-07-2054unnn 1 capsule by mouth once dailyVraylar 6 mg oral capsule 6 mg = 1 cap(s), Oral, Daily, Other (see comment) Start Date: 11/29/20 Status: OrderedStart: 86-62-5821nibs 1 capsule by mouth once dailyCariprazine (Vraylar) 4.5 mg Capsule Active 6 MG PO Daily June 01, 2019 12:00am Complies with drug therapyStart: 03-07-2019 End: 03-59-8654Ypiqvihalgg (Vraylar) 1.5 mg Capsule Discontinued 1.5 MG PO As Directed March 07, 2019 12:00am June 01, 2019 4:14pmStart: 08-01-2018 End: 19-80-0938nbhw 1 capsule by mouth once dailyCariprazine (Vraylar) 6 mg capsule Discontinued 6 MG PO Daily August 01, 2018 12:00am February 27, 2019 10:46amhydrOXYzine pamoate 50 mg oral capsule (18 sources)AntihistamineStart: 18-73-5766lnzh 1 capsule by mouth every six hours as needed for anxietyHydroxyzine Pamoate 50 mg Capsule Active 50 MG PO Q6H as needed for Anxiety 30 15 March 31, 2022 12:00am Complies with drug therapy Start: 06-13-2019 End: 25-03-2064huxv 1 capsule by mouth twice daily at mealtimeHydroxyzine Pamoate 50 mg Capsule Discontinued 50 MG PO Twice daily with meals June 13, 2019 12:00am March 27, 2022 8:28amStart: 06-01-2019 End: 53-77-5713twws 1 tablet by mouth twice daily as needed for anxiety Hydroxyzine Hcl 50 mg tablet Discontinued 50 MG PO Twice daily as needed for Anxiety June 01, 2019 12:00am June 13, 2019 12:29pmStart: 08-15-2018 End: 13-48-2582jrcy 1 tablet by mouth twice daily as needed for painHydroxyzine Pamoate (Vistaril) 50 mg Capsule Discontinued 1 TAB PO Twice daily as needed for Pain February 27, 2019 12:00am June 01, 2019 4:14pmlithium carbonate 300 mg oral tablet (20 sources)Start: 14-83-3655dmrragi 300 mg Cap Refills(s) 0 Start Date: 08/26/22 Status: OrderedStart: 50-46-9904yyos 600 mg by mouth at bedtimeLithium Carbonate 600 MG Oral Bedtime June 13, 2019 ActiveStart: 06-13-2019 End: 95-66-9282hmur 1 tablet by mouth once daily in the morningLithium Carbonate 300 mg Tablet Active 300 MG PO Every morning August 03, 2025 12:00am Complies with drug therapyStart: 97-14-8876wqgf 2 tablets by mouth at bedtime [place] Carbonate 300 mg Tablet Active 600 MG PO Bedtime June 13, 2019 12:00am Complies with drug therapyStart: 06-01-2019 End: 65-44-9862adac 1 capsule by mouth at bedtimeLithium Carbonate 300 mg capsule Discontinued 300 MG PO Bedtime June 01, 2019 12:00am June 13, 2019 12:29pmStart: 08-15-2018 End: 13-39-1223gzgp 150 mg by mouth at bedtimeLithium Carbonate 150 MG Oral Bedtime February 27, 2019 June 01, 2019 DiscontinuedStart: 08-15-2018 End: 95-60-8375Uuadgiv Carbonate 300 mg tablet Discontinued 150 MG PO Bedtime February 27, 2019 10:44am June 01, 2019 4:14pmmetoprolol tartrate 25 mg oral tablet (2 sources)beta-Adrenergic BlockerStart: 99-44-2537kadg 1 tablet by mouth once dailyMetoprolol tartrate 25 mg Tab 25 mg = 1 tab(s), Oral, Daily, Refills(s) 0 Start Date: 09/02/22 Status: Orderedmirtazapine 15 mg oral tablet (12 sources)Start: 76-95-1748xmdj 1 tablet by mouth once daily at bedtime Mirtazapine 15 mg Tablet Active 15 MG PO Daily at bedtime March 31, 2022 12:00am Complies with drug therapyStart: 08-02-2018 End: 38-06-0994qiqk 15 mg by mouth at bedtime as needed for sleepMirtazapine 15 MG Oral Bedtime PRN For Sleep August 02, 2018 August 02, 2018 Discontinued Start: 08-02-2018 End: 05-68-1193xwiv 15 mg by mouth at bedtime as needed for sleepMirtazapine 15 MG Oral Bedtime PRN For Sleep August 02, 2018 DiscontinuedStart: 02-01-2018 End: 12-02-1808exbc 1 tablet by mouth at bedtime as needed for sleepMirtazapine 15 mg tablet Discontinued 15 MG PO Bedtime as needed for Sleep August 02, 2018 12:00am August 02, 2018 10:47amOLANZapine 5 mg oral tablet (4 sources)Atypical AntipsychoticStart: 28-56-7213ynsd 1 tablet by mouth every six hours as neededOlanzapine 5 mg Tablet Active 5 MG PO Q6H as needed for Agitation 30 March 31, 2022 12:00am Complies with drug therapyondansetron 4 mg disintegrating oral tablet (6 sources)Serotonin-3 Receptor AntagonistStart: 49-13-7324dsud 1 tablet by mouth twice daily as needed for nauseaOndansetron 4 mg Tablet,Disintegrating Active 4 MG PO Twice daily as needed for Nausea March 27, 2022 12:00am Complies with drug therapyStart: 02-01-2018 End: 98-08-7197tjry 1 tablet by mouth every six hours as needed for nausea Ondansetron Hcl 4 mg tablet Discontinued 4 MG PO Q6H as needed for Nausea February 01, 2018 12:00am February 27, 2019 10:46ampantoprazole 40 mg delayed release oral tablet (1 source)Proton Pump InhibitorStart: 90-70-7131kzwc 1 tablet by mouth once dailyPantoprazole [address] Tab 40 mg = 1 tab(s), Oral, Daily, Refills(s) 0 Start Date: 10/21/22 Status: Orderedspironolactone 25 mg oral tablet (2 sources)Aldosterone AntagonistStart: 01-41-6030rcdv 1 tablet by mouth once dailyspironolactone 25 mg Tab 25 mg = 1 tab(s), Oral, Daily, Refills(s) 0 Start Date: 08/26/22 Status: OrderedtiZANidine 4 mg oral tablet (16 sources)Central alpha-2 Adrenergic AgonistStart: 48-63-3568uklw 2 tablets by mouth at bedtimeTizanidine 4 mg tablet Active 8 MG PO Bedtime March 27, 2022 8:27am Complies with drug therapyStart: 84-18-0944smla 6 mg by mouth at bedtime Tizanidine 6 MG Oral Bedtime June 13, 2019 ActiveStart: 06-13-2019 End: 89-11-2925trnj 6 mg by mouth at bedtimeTizanidine 4 mg Tablet Discontinued 6 MG PO Bedtime June 13, 2019 12:00am March 27, 2022 8:27amStart: 06-01-2019 End: 64-42-3925dxkb 8 mg by mouth at bedtimeTizanidine 8 MG Oral Bedtime June 01, 2019 DiscontinuedStart: 06-01-2019 End: 60-10-9568Sgskzrftkw (Zanaflex) 4 mg tablet Discontinued 8 MG PO Bedtime June 01, 2019 12:00am June 13, 2019 12:29pmStart: 02-01-2018 End: 88-28-3639axpb 8 mg by mouth at bedtimeTizanidine 8 MG Oral Bedtime February 01, 2018 DiscontinuedStart: 02-01-2018 End: 84-63-8180gxkq 2 capsules by mouth at bedtimeTizanidine 4 mg capsule Discontinued 8 MG PO Bedtime February 01, 2018 12:00am June 01, 2019 4:14pm Completed/Discontinued Medications MedicationDrug Class(es)DatesSig (Normalized)Sig (Original)carBAMazepine 200 mg oral tablet (4 sources)Mood StabilizerStart: 02-01-2018 End: 75-36-2907teoz 100 mg by mouth three times dailyCarbamazepine 100 MG Oral Three times daily February 01, 2018 DiscontinuedStart: 02-01-2018 End: 58-50-7197xymh 1 tablet by mouth three times dailyCarbamazepine (Tegretol) 200 mg Tablet Discontinued 100 MG PO Three times daily February 01, 2018 12:00am August 01, 2018 2:52pmcholecalciferol 1000 unt oral tablet (4 sources)Vitamin DStart: 15-17-9864rcrn 3000 [IU] by mouth once daily Cholecalciferol (Vitamin D3) 3000 UNIT Oral Daily June 13, 2019 ActiveStart: 06-13-2019 End: 88-78-0248wuhf 3 tablets by mouth once dailyCholecalciferol (Vitamin D3) (Vitamin D3) 1,000 unit Tablet Discontinued 3000 UNIT PO Daily 2018 12:00am March 27, 2022 8:28amclonazePAM 0.5 mg oral tablet (4 sources)BenzodiazepineStart: 08-01-2018 End: 88-29-6541gddr 1 tablet by mouth four times dailyClonazepam 0.5 mg tablet Discontinued 0.5 MG PO Four times daily August 01, 2018 12:00am August 15, 2018 11:22am24 hr desvenlafaxine succinate 50 mg extended release oral tablet (8 sources)Serotonin and Norepinephrine Reuptake InhibitorStart: 08-15-2018 End: 94-51-2611Cifcrpiuogscfr Succinate (Pristiq) 50 mg Tablet Extended Release 24 Hr Discontinued 100 MG PO Daily60 August 15, 2018 12:00am June 01, 2019 4:14pmStart: 02-01-2018 End: 58-39-4415kimz 1 tablet by mouth once dailyDesvenlafaxine Succinate 100 mg tablet extended release 24 hr Discontinued 100 MG PO Daily February 01, 2018 12:00am August 02, 2018 10:47amesomeprazole 20 mg delayed release oral capsule (8 sources)Proton Pump InhibitorStart: 02-27-2019 End: 44-83-8127vsrm 1 tablet by mouth once dailyEsomeprazole Magnesium (Nexium) 20 mg Capsule,Delayed Release(Dr/Ec) Discontinued 1 TAB PO Daily February 27, 2019 12:00am June 01, 2019 4:14pmStart: 02-01-2018 End: 87-14-3120alar 1 capsule by mouth twice dailyEsomeprazole Magnesium (Nexium) 40 mg Capsule,Delayed Release(Dr/Ec) Discontinued 40 MG PO Twice daily February 01, 2018 12:00am August 15, 2018 11:22amfenofibrate 145 mg oral tablet (8 sources)Peroxisome Proliferator Receptor alpha AgonistStart: 02-27-2019 End: 42-22-1355cakx 1 tablet by mouth once dailyFenofibrate Nanocrystallized (Tricor) 145 mg Tablet Discontinued 1 TAB PO Daily February 27, 2019 12:00am June 01, 2019 4:14pmStart: 02-01-2018 End: 43-34-6925vovm 1 tablet by mouth once dailyFenofibrate Nanocrystallized (Tricor) 145 mg Tablet Discontinued 145 MG PO Daily February 01, 2018 12:00am August 02, 2018 10:47amibuprofen 200 mg oral tablet (4 sources)Nonsteroidal Anti-inflammatory DrugStart: 02-01-2018 End: 61-27-9372zgmb 800 mg by mouth every six hours as needed for painIbuprofen [Motrin Ib] 800 MG Oral Q6H PRN For Pain February 01, 2018 August 01, 2018 DiscontinuedStart: 02-01-2018 End: 61-14-1299Iffqcsovv (Motrin Ib) 200 mg Tablet Discontinued 800 MG PO Q6H as needed for Pain February 01, 2018 12:00am August 01, 2018 2:52pmlubiprostone 0.008 mg oral capsule (12 sources)Chloride Channel ActivatorStart: 02-27-2019 End: 87-35-3487Owpgnnurjpbs [Amitiza] February 27, 2019 June 01, 2019 Discontinued Start: 02-27-2019 End: 82-16-9127Vcuvaqxagoet (Amitiza) 8 mcg Capsule Discontinued February 27, 2019 12:00am June 01, 2019 4:14pmStart: 02-01-2018 End: 72-56-3017vgep 1 capsule by mouth twice dailyLubiprostone 24 mcg capsule Discontinued 24 MCG PO Twice daily February 01, 2018 12:00am February 27, 2019 10:46amlurasidone hydrochloride 80 mg oral tablet (20 sources)Atypical AntipsychoticStart: 06-13-2019 End: 97-07-1592fslr 1 tablet by mouth once dailyLurasidone (Latuda) 80 mg Tablet Discontinued 80 MG PO Daily with supper 14 June 13, 2019 12:00amSeptember 2024 12:14pmStart: 06-01-2019 End: 37-99-5101zgpt 1 tablet by mouth once daily at dinnerLurasidone (Latuda) 60 mg Tablet Discontinued 60 MG PO Daily June 01, 2019 12:00am June 13, 2019 12:29pm with dinnerStart: 02-27-2019 End: 91-01-1743ssyx 1 tablet by mouth once dailyLurasidone (Latuda) 40 mg Tablet Discontinued 1 TAB PO Daily February 27, 2019 12:00am June 01, 2019 4:14pm Start: 08-02-2018 End: 34-45-9236gggh 40 mg by mouth once dailyLurasidone 40 MG Oral Daily with supper August 02, 2018 DiscontinuedStart: 08-02-2018 End: 37-90-9697adqr 40 mg by mouth once dailyLurasidone [Latuda] 40 MG Oral Daily with supper August 02, 2018 August 02, 2018 DiscontinuedStart: 08-02-2018 End: 90-72-0418vhes 1 tablet by mouth once dailyLurasidone (Latuda) 40 mg tablet Discontinued 40 MG PO Daily with supper August 02, 2018 12:00am August 02, 2018 10:47amStart: 02-01-2018 End: 65-99-7196myxv 1 tablet by mouth once dailyLurasidone (Latuda) 60 mg tablet Discontinued 60 MG PO Daily February 01, 2018 12:00am August 01, 2018 2:52pmnaltrexone 380 mg injection (4 sources)Opioid AntagonistStart: 02-01-2018 End: 78-45-4884Qiovyyaxcd Microspheres (Vivitrol) 380 mg suspension,extended rel recon Discontinued 380 MG Daily February 01, 2018 12:00am March 07, 2019 11:10am Last dose given 07/22/18, next dose due 08/19/18.omeprazole 20 mg delayed release oral capsule (4 sources)Proton Pump InhibitorStart: 08-15-2018 End: 64-26-3245gmlj 40 mg by mouth once dailyOmeprazole 40 MG Oral Daily 60 August 15, 2018 February 27, 2019 DiscontinuedStart: 08-15-2018 End: 59-60-4848tyip 2 capsules by mouth once dailyOmeprazole 20 mg Capsule,Delayed Release(Dr/Ec) Discontinued 40 MG PO Daily 60 August 15, 201812:00am February 27, 2019 10:46am24 hr oxybutynin chloride 5 mg extended release oral tablet (12 sources)Cholinergic Muscarinic AntagonistStart: 08-15-2018 End: 80-60-6649opgr 1 tablet by mouth twice dailyOxybutynin Chloride 5 mg Tablet Discontinued 5 MG PO Twice daily 60 August 15, 2018 12:00am February 27, 2019 10:46amStart: 02-01-2018 End: 95-69-7499iusz 1 tablet by mouth once dailyOxybutynin Chloride [Ditropan Xl] 1 TAB Oral Daily February 27, 2019 June 01, 2019 DiscontinuedStart: 02-01-2018 End: 52-25-2767tbip 1 tablet by mouth once dailyOxybutynin Chloride (Ditropan Xl) 5 mg Tablet Extended Release 24hr Discontinued 1 TAB PO Daily February 27, 2019 12:00am June 01, 2019 4:14pmpramipexole dihydrochloride 0.25 mg oral tablet (12 sources)Nonergot Dopamine AgonistStart: 02-01-2018 End: 38-07-2997qiff 1 tablet by mouth at bedtimePramipexole (Mirapex) 0.25 mg Tablet Discontinued 1 TAB PO Bedtime February 27, 2019 12:00am June 01, 2019 4:14pmpromethazine hydrochloride 25 mg oral tablet (8 sources)PhenothiazineStart: 06-01-2019 End: 23-23-6344jzyv 1 tablet by mouth twice daily as needed for nausea Promethazine 25 mg tablet Discontinued 25 MG PO Twice daily as needed for Nausea June 01, 2019 12:00am March 27, 2022 8:28amStart: 02-01-2018 End: 33-45-6996cwtt 1 tablet by mouth every four hours as needed for nausea Promethazine 25 mg tablet Discontinued 25 MG PO Q4H as needed for Nausea February 01, 2018 12:00am August 01, 2018 2:53pmpropranolol hydrochloride 40 mg oral tablet (4 sources)beta-Adrenergic BlockerStart: 02-01-2018 End: 43-69-4034wzzg 20 mg by mouth once dailyPropranolol 20 MG Oral Daily February 01, 2018 DiscontinuedStart: 02-01-2018 End: 42-81-3493Vdhfbxrquby 40 mg tablet Discontinued 20 MG PO Daily February 01, 2018 12:00am August 01, 2018 2:53pmsimvastatin 20 mg oral tablet (8 sources)HMG-CoA Reductase InhibitorStart: 08-02-2018 End: 67-33-7893llst 1 tablet by mouth once daily in the eveningSimvastatin 20 mg Tablet Discontinued 20 MG PO Every evening August 15, 2018 12:00am February 27, 2019 10:46amtraZODone hydrochloride 100 mg oral tablet (12 sources)Serotonin Reuptake InhibitorStart: 08-15-2018 End: 55-61-4892ddcy 1 tablet by mouth once daily at bedtimeTrazodone 100 mg Tablet Discontinued 100 MG PO Daily at bedtime August 15, 2018 12:00am February 27, 2019 10:46amStart: 08-02-2018 End: 73-15-6333acis 100 mg by mouth at bedtimeTrazodone 100 MG Oral Bedtime August 02, 2018 August 02, 2018 DiscontinuedStart: 08-02-2018 End: 73-52-5353oqcu 100 mg by mouth at bedtimeTrazodone 100 MG Oral Bedtime August 02, 2018 DiscontinuedStart: 02-01-2018 End: 12-19-7849ehsv 1 tablet by mouth at bedtimeTrazodone 100 mg tablet Discontinued 100 MG PO Bedtime August 02, 2018 12:00am July 10:47am24 hr divalproex sodium 500 mg extended release oral tablet (8 sources)Mood Stabilizer, Anti-epileptic AgentStart: 08-02-2018 End: 08-55-5663ttyy 1000 mg by mouth once dailyDivalproex 1000 MG Oral Daily August 02, 2018 August 02, 2018 DiscontinuedStart: 08-02-2018 End: 28-22-4744beik 1000 mg by mouth once dailyDivalproex 1000 MG Oral Daily August 02, 2018 DiscontinuedStart: 08-02-2018 End: 41-51-4523Oqinizsfqw 500 mg tablet extended release 24 hr Discontinued 1000 MG PO Daily August 02, 2018 12:00am August 02, 2018 10:48amStart: 02-01-2018 End: 25-73-9555kgkf 1 tablet by mouth twice dailyDivalproex (Depakote) 500 mg Tablet,Delayed Release (Dr/Ec) Discontinued 500 MG PO Twice daily February 01, 2018 12:00am August 01, 2018 2:52pmzolpidem tartrate 10 mg oral tablet (2 sources)gamma-Aminobutyric Acid-ergic AgonistStart: 03-27-2022 End: 82-24-8723btiv 1 tablet by mouth once daily at bedtime as needed for sleep Zolpidem (Ambien) 10 mg Tablet Discontinued 10 MG PO Daily at bedtime as needed for Sleep March 27, 2022 12:00am August 03, 2025 12:14pm Problems Active Problems Problem ClassificationProblemDateDocumented DateEpisodic/ChronicAbdominal hernia (6 sources)Hernia of abdominal wall; Translations: [Incisional hernia]11-18-2020 EpisodicAnal and rectal conditions (2 sources)Rectal lhibopmm02-18-6817WtogwzaqRuwbqyzxt-scisqjp, conduct, and disruptive behavior disorders (2 sources)Attention deficit hyperactivity disorder, predominantly inattentive hmkv66-02-1809GbaucmqSwmdspf obstructive pulmonary disease and bronchiectasis (1 source)Bronchiectasis, uncomplicated; Translations: [BRONCHIECTASIS UNCOMPLICATED]Onset: 39-99-9150RnhfzdbEgrcqavul of lipid metabolism (9 sources)Mixed hyperlipidemia; Translations: [Mixed hyperlipidemia]Onset: 839216-56-0591PwxupepOppbbbrfmj disorders (2 sources)Gastroesophageal reflux frzvisx12-83-3568AolsaxdFlqcnhbtlp disorders (2 sources)Esophagitis; Translations: [Esophagitis, unspecified without bleeding]Onset: 15-50-6339MsslguudXkpwrctfp hypertension (5 sources)Hypertensive disorder; Translations: [Essential (primary) hypertension]Onset: 583670-05-6687DkqfmkmUftdoerod and duodenitis (1 source)Unspecified chronic gastritis without bleeding; Translations: [UNS CHRONIC GASTRITIS W/O BLEEDING]Onset: 63-89-4798FfaohbmMxpywhfexnegiy ulcer (except hemorrhage) (3 sources)Gastric ulcer, unspecified as acute or chronic, without hemorrhage or perforation; Translations: [Chronic gastric ulcer without hemorrhage AND without perforation]Onset: 05-00-8871BznwybdIzdzqvrndeuwh symptoms and ill-defined conditions (2 sources)Urinary jhfxmdimaaio78-16-2304EqyxawmVvow disorders (11 sources)Depressed bipolar I disorder; Translations: [Bipolar disorder]Onset: 580707-76-1070LzbioezCbjola and vomiting (3 sources)Nausea; Translations: [Nausea]86-75-1363HdkuqnwnSpqgg 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 source)joint terminal attack controller (current) use of aspirin; Translations: [HALFWAY CURRENT USE OF ASPIRIN]Onset: 90-71-9087CzgkzbykTlpfv gastrointestinal disorders (4 sources)Dysphagia; Translations: [Dysphagia, unspecified]Onset: 09-02-2022 EpisodicOther gastrointestinal disorders (2 sources)Oropharyngeal ylmvuwgnv35-69-2943ZcllmzajCrfsg gastrointestinal disorders (5 sources)Dysphagia, unspecified; Translations: [DYSPHAGIA UNSPECIFIED]Onset: 40-11-9751RoremqszRbtek gastrointestinal disorders (4 sources)Dysphagia, oropharyngeal phase; Translations: [DYSPHAGIA OROPHARYNGEAL PHASE]Onset: 52-19-2515PaywvascRkoqi hereditary and degenerative nervous system conditions (2 sources)Restless gjrb20-10-9027EkjjfojUxmyf infections; including parasitic (2 sources)H/O: infectious exzgthf12-51-8992FxtxnbcwYocyi lower respiratory disease (4 sources)Shortness of breath; Translations: [SHORTNESS OF BREATH]Onset: 08-19-5780VibezaoePkwes nutritional; endocrine; and metabolic disorders (2 sources)Body mass index 30+ - lakajlq80-85-4191CairahaUenyj nutritional; endocrine; and metabolic disorders (2 sources)Llblcqx89-53-0211JufgjmlBxnoh nutritional; endocrine; and metabolic disorders (1 source)Obesity, unspecified; Translations: [OBESITY UNSPECIFIED]Onset: 26-40-5769HbzxniuPxswi nutritional; endocrine; and metabolic disorders (1 source)Body mass index (BMI) 35.0-35.9, adult; Translations: [BODY MASS INDEX BMI 35.0-35.9 ADULT]Onset: 57-01-2478CwyzhqlNwqji screening for suspected conditions (not mental disorders or infectious disease) (1 source)Abnormal findings on diagnostic imaging of other specified body structures; Translations: [ABNORML FIND DX IMG OTH BODY STRUC]Onset: 07-21-2022 ChronicOther screening for suspected conditions (not mental disorders or infectious disease) (10 sources)Imaging of gastrointestinal tract abnormal; Translations: [Abnormal findings on diagnostic imaging of other parts of digestive tract]Onset: 91-71-0423KdqsgrxxMweqd upper respiratory infections (1 source)Acute sinusitis, unspecified; Translations: [ACUTE SINUSITIS UNSPECIFIED]Onset: 92-30-1750MvsbbuaoCkymuvpy codes; unclassified (2 sources)Obstructive sleep apnea -86-3688XibgpogRmwjuytz codes; unclassified (1 source)Obstructive sleep apnea (adult) (pediatric); Translations: [OBSTRUCTIVE SLEEP APNEA]Onset: 43-77-6928FuyjlchQohnmfoi codes; unclassified (2 sources)Oqvqner43-50-2068BffvepjjSoegwknq codes; unclassified (1 source)Acquired absence of both cervix and uterus; Translations: [ACQUIRED ABSENCE BOTH CERVIX AND UTERUS]Onset: 85-75-2363JowxveqtRybbvxyw codes; unclassified (1 source)Acquired absence of other specified parts of digestive tract; Translations: [ACQ ABSENCE OTH PART DIGESTV TRACT]Onset: 88-72-7231Mpxfgtnr Residual codes; unclassified (3 sources)Localized edema; Translations: [LOCALIZED EDEMA]Onset: 07-13-2022 EpisodicSchizophrenia and other psychotic disorders (3 sources)Acute exacerbation of chronic schizophrenia; Translations: [Schizophrenia, unspecified]19-30-0083RxitljoCgridewir and history of mental health and substance abuse codes (1 source)Personal history of nicotine dependence; Translations: [PERSONAL HISTORY OF NICOTINE DEPEND]Onset: 71-34-4005OqcnsltjMjlmylp and intentional self-inflicted injury (3 sources)Suicidal thoughts; Translations: [Suicidal ideations]06-02-2019 EpisodicUnclassified (1 source)ESOPHAGITIS UNSPEC WITHOUT BLEEDING; Translations: [ESOPHAGITIS UNSPEC WITHOUT BLEEDING]Onset: 67-31-6849Ohbxisgsjqbi (4 sources)CONTACT W/AND (SUSP) EXPOS COVID-19; Translations: [CONTACT W/AND (SUSP) EXPOS COVID-19]Onset: 08-12-2022 Past or Other Problems Problem ClassificationProblemDateDocumented DateEpisodic/ChronicOther lower respiratory disease (5 sources)Other forms of dyspnea; Translations: [OTHER FORMS OF DYSPNEA]Onset: 83-53-5054CqyxziemPnqjofdrwald (1 source)CONTACT W/AND (SUSP) EXPOS COVID-19; Translations: [CONTACT W/AND (SUSP) EXPOS COVID-19]Onset: 08-11-2022 Results Test NameValueInterpretationReference RangeFacilityDrug Screen,Urineon 74-31-9415Sgouiwfgupl Screen,UrineNegativeNormalNegativeThe [facility] Physician GroupComment on above:Performed By: #### URDS #### [place] [address] USABarbiturate Screen,UrinePositiveNormalNegativeBroward Health Imperial Point Physician GroupComment on above:Performed By: #### URDS #### [place] [address] USABenzodiazepines Screen,UrineNegativeNormalNegativeBroward Health Imperial Point Physician GroupComment on above:Performed By: #### URDS #### [place] [address] USACannabinoid Screen,UrineNegativeNormalNegativeBroward Health Imperial Point Physician GroupComment on above:Result Comment: These are unconfirmed results and should not be used for legal purposes. Drug Cut-Off Concentration: AMPH 1000 ng/mL ALFREDO 200 ng/mL JAXON 200 ng/mL COCM 300 ng/mL OP 300 ng/mL PCP 25 ng/mL THC 20 ng/mL PERFORMED BY: [place] [address] PATHOLOGIST BONDERIZER OPERATOR FAMILIA MADRID M.D.Performed By: #### URDS #### [place] [address] USACocaine Screen,UrineNegativeNormalNegativeBroward Health Imperial Point Physician GroupComment on above:Performed By: #### URDS #### [place] [address] USAOpiate Screen,UrineNegativeNormalNegativeBroward Health Imperial Point Physician GroupComment on above:Performed By: #### URDS #### [address] [address] USAPhencyclidine Screen,UrineNegativeNormalNegativeThe [facility] Physician GroupComment on above:Performed By: #### URDS #### [facility] [address] [place] [address] USALon 08-22-2025 Specimen: [id number] Received: 08/22/25 Status: ERNESTINA Donnell Num: [id number] Spec Type: Surgical Subm Dr: Candi Dia DO Tissues: A Small Intestine - Biopsy/Polyp (SMALL BOWEL BX) B Gastric Biopsy (GASTRIC BX) C Esophagus Biopsy (DISTAL ESOPHAGUS BX) D Esophagus Biopsy (PROXIMAL ESOPHAGUS BX) Procedures: BLAYNE/Katherine, Gross/Micro L4/4 Age/ Patient Sex Location Account Attending Physician Nazario Medley 65/F [id number] Candi Dia DO SPEC NUM: [id number] RECD: 08/22/25 STATUS: ERNESTINA DONNELL NUM: [id number] BA: 08/22/[address]: Candi Dia DO ENTERED: 08/22/[address] [facility] [address]: SPEC TYPE: Surgical DEPT: S ENTERED BY: [id number] RECV BY: [id number] ORDERED: HE/8, Gross/Micro L4/4 ORDERED: HE/8, Gross/Micro [...] C?Part D rule out eosinophilic esophagitis Specimen: [id number] Received: 08/22/25 Status: ERNESTINA Pena Num: [id number] Spec Type: Surgical Subm Dr: Candi Dia DO Tissues: A Small Intestine - Biopsy/Polyp (SMALL BOWEL BX) B Gastric Biopsy (GASTRIC BX) C Esophagus Biopsy (DISTAL ESOPHAGUS BX) D Esophagus Biopsy (PROXIMAL ESOPHAGUS BX) Procedures: HE/8, Gross/Micro L4/4 Patient: Nazario Medley [id number] (Continued) Specimen: [id number] Received: 08/22/25 (Continued) Signed (signature on file) Melissa Strong DO 08/23/25 1045 Specimen: [id number] Received: 08/22/25 Status: ERNESTINA Donnell Num: [id number] Spec Type: Surgical Subm Dr: Candi Dia DO Tissues: A Small Intestine - Biopsy/Polyp (SMALL BOWEL BX) B Gastric Biopsy (GASTRIC BX) C Esophagus Biopsy (DISTAL ESOPHAGUS BX) D Esophagus Biopsy (PROXIMAL ESOPHAGUS BX) Procedures: BLAYNE/Katherine Gross/Marvin L4/4 Patient: Nazario Medley [id number] (Continued) Specimen: [id number] Received: 08/22/25 (Continued) Gross Description Part A is received in formalin labeled with the patients date of , and Rahrig, small bowel BX are 2 moeller-dong, focally erythematous, friable, 0.3 cm each in greatest dimension tissue bits. The specimen is entirely submitted in a single cassette. (1, ns, [id number] A) JG Part B is received in formalin labeled with the patients date of , and Rahrig,gastric BX is a moeller-dong, focally erythematous, friable, 0.3 cm in greatest dimension tissue bit. The specimen is entirely submitted in a single cassette. (1, ns, [id number] B) JG Part C is received in formalin labeled with the patients date of , and Rahrig, distal esophagus BX are 3 pale dong, focally erythematous, feathery, 0.2, 0.3 and 0.3 cm in greatest dimension tissue bits. The specimen is entirely submitted in a single cassette. (1, ns, [id number] C) JG Part D is received in formalin labeled with the patients date of , and Rahrig,proximal esophagus BX are 2 pale dong, focally erythematous, feathery, 0.3 cm each in greatest dimension tissue bits. The specimen is entirely submitted in a single cassette. (1, ns, [id number] D) Microscopic Description Features of reflux in specimens C and D are prominent/severe. CPT Codes 81978 x 4 Specimen: [id number] Received: 08/22/25 Status: ERNESTINA Pena Num: [id number] Spec Type: Surgical Subm Dr: Candi Dia, DO Tissues: A Small Intestine - Biopsy/Polyp (SMALL BOWEL BX) B Gastric Biopsy (GASTRIC BX) (more content not included)...NormalBroward Health Imperial Point Physician GroupOffice Visiton 84-43-2565Jdlfdx-up [id number] Nazario Medley 1960 F Date Provider Department Center 07/02/2025 JESSIE RIVERA GAL [facility] Family History Problem Relation Age of Onset Hypertension Mother Diabetes Mother Hypertension Father Family Status - Relation Status Age at Mother Alive Father Level of Service:[address] [place] OFFICE/OUTPATIENT ESTABLISHED LOW MDM 20 [facility] Cultureon 96-74-2709Wlbiqnar identified Cx Nom (U)ORGANISM: Klebsiella variicola (O:KLEVAR) [place] Count >100,000 Aerobic MIL Charge (NMIC56) SUSCEPTIBILITY [...] RESISTANT TO ALL B-LACTAM DRUGS. PERFORMED BY: [place] [id number] PATHOLOGIST BONDERIZER OPERATOR FAMILIA MADRID M.D.NormalBroward Health Imperial Point Physician GroupComment on above: Performed By: #### CUU #### [place] [id number] TYR72xd 62-29-262310Tukulncow echo performed on 07/11/2024: MD Coral Meyers MA Her echo was ok, follow up in 1 year.[facility] General Surgery Office/Clinic Noteon 32-05-5508Tseemed Surgery Office/Clinic NoteChief Complaint post operative follow [...] mellitus type 2: Mother. Hypertension: Mother and Father.[facility] HospitalComment on above:Result Comment: Electronically Signed By: CAIT LEHMAN, Ganga Valencia\Date and Time Signed: 10/21/22 15:25 ESTOperative Reporton 30-92-0922Jcrflqwof Report [id number]#1.00CD:127[facility] HospitalOperative Reporton 50-30-4100Ddzhrlpfj Report [id number]#1.00CD:[address] [place], [place] [address]Pathology Noteon 84-56-0529Wjmnjkctf Note [id number]#1.00CD:[address] [place], [place] [address]Lab Reportson 71-43-3285Hkw Reports [id number]#1.00CD:[address] [place], [place] [address]Covid-19 PCR (CVDTBH)on 18-57-2300IJYZ-CoV-2 (COVID-19) RNA ISABEL+probe Ql (Unsp spec)Not detectedNormalNOT DETECTEDThe [facility] HospitalComment on above: Result Comment: This test is not yet approved or cleared by the [place] FDA. When there are no FDA-approved or cleared tests available, and other criteria are met, FDA can make tests available under an emergency access mechanism called an Emergency Use Authorization (EUA). The EUA for this test is supported by the [place] of Health and Human Service's (HHS's) declaration [...] consistent with SARS-CoV-2.Performed By: #### CVDTBH #### [facility] [address] [place] [address] Dr. Osmar Johnson for Procedure/Surgeryon 27-02-0742Kquloss for Procedure/[id number]#1.00CD:127[facility] HospitalAmbulatory Visit Summaryon 38-59-8504Iqqggortsr Visit Summary NAZARIO MEDLEY :1960 Visit Date:09/02/2022 Ambulatory Visit Instructions [...] History of Clostridium difficile infection Memory loss [facility] Correspondenceon 97-78-9657ZtlenpbHunterdon Medical Center Correspondence [id number]#1.00CD:127[facility]ia [facility]RAD - [place] Reporton 35-46-0564YJC - CT Report [id number]#1.00CD:127AidaUnc Health Pardeejong [facility] MarylandRAD - MISCon 27-31-8348PJV - MISC [id number]#1.00CD:127LatoniaACMC Healthcare SystemPhysician Referralon 25-55-5430Yckoxkylw Referral [id number]#1.00CD:ShoshanaShelby Memorial HospitalCovid-19 PCR (CVDTB)on 67-61-2970BCHV-CoV-2 (COVID-19) RNA ISABEL+probe Ql (Unsp spec)Not detectedNormalNOT DETECTEDThe [facility] HospitalComment on above: Result Comment: This test is not yet approved or cleared by the [place] FDA. When there are no FDA-approved or cleared tests available, and other criteria are met, FDA can make tests available under an emergency access mechanism called an Emergency Use Authorization (EUA). The EUA for this test is supported by the [place] of Health and Human Service's (HHS's) declaration [...] consistent with SARS-CoV-2.Performed By: #### CVDTBH #### [facility] [address] [place] [address] Dr. Osmar CoxXR MODIFIED BARIUM SWALLOWon 29-48-0455EX MODIFIED BARIUM SWALLOW EXAMINATION: XR MODIFIED BARIUM [...] considered for further evaluation. Electronically authenticated by: AMAN KIRK Date: 2022-08-06 15:18[facility] HospitalCardiovascular Lab Reporton 46-34-5138Fyogmxkrybzgmi Lab Report [facility] Patient Name: [facility] MR #: [id number] Physician: Jessie De Oliveira of [facility] Medicine Service Date: 07/28/2022 Division of Birthdate: 1960 Cardiology Room #: [facility] Cardiovascular Services [place] [address] Cardiovascular Laboratory Report INDICATIONS: The patient is [...] signed informed consent. She was brought to laborer in a fasting state. The right neck area was prepped and draped in usual fashion. Micropuncture technique and ultrasound guidance were used for access in the right internal jugular vein. A 6-Salvadorean x 11 cm sheath was placed. A 6-Salvadorean Suarez catheter was used for right heart catheterization and measurement of pressures and calculation of cardiac output using the estimated Karina method. Suarez catheter was removed. Micropuncture technique and ultrasound guidance were used for access in the right radial artery. A 5-Salvadorean x 11 cm slender sheath was advanced. Verapamil was given through the sheath and heparin was administered intravenously. Bilateral selective coronary angiography was then performed using 5-Salvadorean JL 3.5 and JR5 diagnostic catheters. Catheters [...] Arnett M.D. Date Trans: 07/29/2022 03:31 A/gladys DN_JN:[id number] cc: Nola Ramirez M.D. [facility] [address] [facility] [address]SkujibHtdCleveland Clinic South Pointe HospitalCBC AUTO DIFF on 99-88-4964OKBA #0.1 103/ulNormal0.0-0.1The [facility] HospitalComment on above: Performed By: #### CBC #### [facility] [address] [place] [address] [address] Osmar CoxBasophils/100 WBC (Bld)0.9 %Normal0.2-2.0The [facility] Comment on above:Performed By: #### CBC #### [facility] [address] [place] [address] Dr. Osmar Coe #0.0 103/ulNormal0.0-0.7The [facility] HospitalComment on above: Performed By: #### CBC #### [facility] [address] [place] [address] Dr. Osmar Snellosinophils/100 WBC (Bld)0.1 %Critically low0.9-7.0The [facility] HospitalComment on above:Performed By: #### CBC #### [facility] [address] [place] [address] Dr. Osmar Snellrythrocyte distribution width (RBC) [Ratio]15.4 %Critically high 11.0-15.0The [facility] HospitalComment on above:Performed By: #### CBC #### [facility] [address] [place] [address] Dr. Osmar CoxHematocrit (Bld) [Volume fraction]40.7 %Mmesjo47.0-48.0The [facility] HospitalComment on above:Performed By: #### CBC #### [facility] [address] [place] [address] Dr. Osmar CoxHemoglobin (Bld) [Mass/Vol]12.5 g/yBPyyklw86.0-16.0The [facility] HospitalComment on above:Performed By: #### CBC #### [facility] [address] [place] [address] Dr. Osmar Llanos #0.08 10e3/ulCritically high0.00-0.03The [facility] Comment on above:Performed By: #### CBC #### [facility] [address] [place] [address] Dr. Osmar Llanos %0.7 %Critically high0.0-0.5The [facility] HospitalComment on above:Performed By: #### CBC #### [facility] [address] [place] [address] Dr. Osmar Godinez #2.6 103/ulNormal1.2-3.8The [facility] HospitalComment on above:Performed By: #### CBC #### [facility] [address] [place] [address] Dr. Osmar Martinezhocytes/100 WBC (Bld)22.8 %Tkccfb91.5-60.0The [facility] HospitalComment on above:Performed By: #### CBC #### [facility] [address] [place] [address] Dr. Osmar ShinUAL DIFF REQNONormalThe [facility] HospitalComment on above: Performed By: #### CBC #### [facility] [address] [place] [address] Dr. Osmar Nolan (RBC) [Entitic mass]24.4 pgCritically low26.7-34.0The [facility] HospitalComment on above:Performed By: #### CBC #### [facility] [address] [place] [address] Dr. Osmar Harp (RBC) [Mass/Vol]30.7 g/dPShfmhj08.9-35.2The [facility] HospitalComment on above:Performed By: #### CBC #### [facility] [address] [place] [address] Dr. Osmar Harp (RBC) [Entitic vol]79.3 fLCritically low81.0-99.0The [facility] HospitalComment on above:Performed By: #### CBC #### [facility] [address] [place] [address] [address] Osmar Fair #1.0 103/ulCritically high0.3-0.8The [facility] Comment on above:Performed By: #### CBC #### [facility] [address] [place] [address] Dr. Osmar Acostaocytes/100 WBC (Bld)8.9 %Normal1.7-12.0The [facility] Comment on above:Performed By: #### CBC #### [facility] [address] [place] [address] Dr. Osmar Whitten #7.6 103/ulCritically high1.4-6.5The [facility] Comment on above:Performed By: #### CBC #### [facility] [address] [place] [address] Dr. Osmar Campoutrophils/100 WBC (Bld)66.6 %Knaglt69.0-75.0The [facility] HospitalComment on above:Performed By: #### CBC #### [facility] [address] [place] [address] Dr. Osmar Reidlet mean volume (Bld) [Entitic vol]8.8 fLCritically low 9.5-13.5The [facility] HospitalComment on above:Performed By: #### CBC #### [facility] [address] [place] [address] Dr. Osmar MembrenoT438 103/phXtloel665-815Kay [facility] HospitalComment on above: Performed By: #### CBC #### [facility] [address] [place] [address] Dr. Osmar CoxRBC5.13 106/ulNormal4.20-5.40The [facility] HospitalComment on above:Performed By: #### CBC #### [facility] [address] [place] [address] Dr. Osmar CoxWBC11.3 103/ulCritically high4.0-11.0The [facility] HospitalComment on above:Performed By: #### CBC #### [facility] [address] [place] [address] Dr. Osmar CoxCovid-19 PCR ([facility])on 93-03-4242GKVD-CoV-2 (COVID-19) RNA ISABEL+probe Ql (Unsp spec)Not detectedNormalNOT DETECTEDThe [facility] Comment on above:Result Comment: This test is not yet approved or cleared by the [place] FDA. When there are no FDA-approved or cleared tests available, and other criteria are met, FDA can make tests available under an emergency access mechanism called an Emergency Use Authorization (EUA). The EUA for this test is supported by the [place] of Health and Human Service's (HHS's) declaration [...] and symptoms consistent with SARS-CoV-2.Performed By: #### [facility] #### [facility] [address] [place] [address] Dr. Osmar CoxCT CHEST HI RESOLUTIONon 86-56-0225CZ CHEST HI RESOLUTION EXAMINATION: CT CHEST HI [...] bronchiectasis and peribronchial thickening Electronically authenticated by: CONSEULO TELLES Date: 2022-07-20 11:51[facility]uffton HospitalBNPon 74-57-5414Zsfjzafebre peptide B (Bld) [Mass/Vol]85.0 pg/mLNormal<=900.0The [facility] Medical Centerment on above:Performed By: #### BNP, BMP, LIVER, LIPID ####[facility] [address] [place] [address]Dr. Yilan ChangLIPID PROFILEon 32-32-2816TGYT-HDL RATIO NORMSEE BELOW NormalThe [facility] HospitalComascension st. [facility] on above:Result Comment: 3.3 - 4.4 LOW RISK 4.4 - 7.1 AVERAGE RISK 7.1 - 11.0 MODERATE RISK >11.0 HIGH RISKPerformed By: #### BNP, BMP, LIVER, LIPID ####[facility] [address] [place] [address]Dr. Yilan ChangCholesterol [Mass/Vol]229 mg/dL Critically high<=200The [facility] HospitalComment on above:Performed By: #### BNP, BMP, LIVER, LIPID ####[facility] [address] [place] [address]Dr. Yilan ChangCholesterol in HDL [Mass/Vol]51 mg/dL Pejxwy83-26Ebz [facility] HospitalComment on above:Performed By: #### BNP, BMP, LIVER, LIPID ####[facility] [address] [place] [address]Dr. Yilan ChangCholesterol in LDL [Mass/Vol]130.2 mg/dLOhioHealth Southeastern Medical Centerment on above:Performed By: #### BNP, BMP, LIVER, LIPID ####[facility] [address] [place] [address]Dr. Yilan Cox Cholesterol.total/Cholesterol in HDL [Mass ratio]4.5 {ratio}NormalThe [facility] on above:Performed By: #### BNP, BMP, LIVER, LIPID ####[facility] [address] [place] [address]Dr. Yilan ChangHDL NORMAL> or = 60 mg/dl - LOW CARDIOVASCULAR RISK <40 mg/dl - HIGH CARDIOVASCULAR RISKBlanchard [facility] Health System Bluffton HospitalComment on above:Performed By: #### BNP, BMP, LIVER, LIPID ####[facility] [address] [place] [address]Dr. Yilan ChangLDL CALC NORMALSEE BELOWBlanchard Valley Health System Bluffton HospitalComment on above:Result Comment: <100 mg/dl OPTIMAL 100 - 129 mg/dl NEAR OR ABOVE OPTIMAL 130 - 159 mg/dl BORDERLINE HIGH 160 - 189 mg/dl HIGH >190 mg/dl VERY HIGHPerformed By: #### BNP, BMP, LIVER, LIPID ####[facility] [address] [place] [address]Dr. Lindalan ChangTriglyceride [Mass/Vol]239 mg/dLCritically high<=150The [facility] HospitalComment on above: Performed By: #### BNP, BMP, LIVER, LIPID ####[facility] [address] [place], [place] [address]Dr. Lindalan ChangVLDL CALC47.8 mg/dLNoCleveland Clinic Mentor HospitalComment on above:Performed By: #### BNP, BMP, LIVER, LIPID ####[facility] [address] [place] [address]Dr. Lindalan ChangLIVER PROFILEon 52-76-4992Aryhcll [Mass/Vol]3.5 g/dLNormal3.4-5.0[facility] SystemComment on above:Performed By: #### BNP, BMP, LIVER, LIPID ####[facility] [address] [place] [address]Dr. Lindalan ChangAlbumin/Globulin [Mass ratio]1.0 {ratio}NormalThe [facility] Comment on above:Performed By: #### BNP, BMP, LIVER, LIPID ####[facility] [address] [place] [address]Dr. Lindalan ChangALP [Catalytic activity/Vol]183 U/LCritically fgau64-886Ltt [facility] HospitalComment on above: Performed By: #### BNP, BMP, LIVER, LIPID ####[facility] [address] [place] [address]Dr. Yilan ChangALT [Catalytic activity/Vol] 32 U/OMfgrvw41-63Mfa [facility] HospitalComment on above:Performed By: #### BNP, BMP, LIVER, LIPID ####[facility] [address] [place] [address]Dr. Yilan ChangAST [Catalytic activity/Vol]17 U/SBevztp63-69Kpa [facility] HospitalComment on above:Performed By: #### BNP, BMP, LIVER, LIPID ####[facility] [address] [place] [address]Dr. Yilan ChangBILI, CONJUGATED0.1 mg/dLNormal0.0-0.2The [facility] HospitalComment on above:Performed By: #### BNP, BMP, LIVER, LIPID ####[facility] [address] [place], [place] [address]Dr. Yilan ChangBilirubin [Mass/Vol]0.2 mg/dLNormal0.2-1.0The [facility] HospitalComment on above:Performed By: #### BNP, BMP, LIVER, LIPID ####[facility] Tglthsvls[address] [place], [place] [address]Dr. Yilan ChangGlobulin (S) [Mass/Vol]3.5 g/dLNormal The [facility] HospitalComment on above:Performed By: #### BNP, BMP, LIVER, LIPID ####[facility] Cbktt[address] [place], [place] [address]Dr. Yilan ChangProtein [Mass/Vol]7.0 g/dLNormal6.4-8.2The [facility] HospitalComment on above:Performed By: #### BNP, BMP, LIVER, LIPID ####[facility] [address] [place], [place] [address]Dr. Yilan ChangPROF CHEM 8 (BAS METB)on 06-06-5304Jvyhu gap [Moles/Vol]11.6 mmol/LNormalThe [facility]abaster HospitalComment on above:Performed By: #### BNP, BMP, LIVER, LIPID #### [facility] [address] [address] [address] Osmar CoxCalcium [Mass/Vol]8.9 mg/dLNormal8.5-10.1The [facility] Comment on above:Performed By: #### BNP, BMP, LIVER, LIPID #### [facility] [address] [address] [address] Osmar CoxChloride [Moles/Vol]104 mmol/BDonixv12-934Lir [facility] Comment on above:Performed By: #### BNP, BMP, LIVER, LIPID #### [facility] [address] [place] [address] Dr. Osmar CoxCO2 [Moles/Vol]26.0 mmol/CIgycbz09.0-32.0The [facility] Comment on above:Performed By: #### BNP, BMP, LIVER, LIPID #### [facility] [address] [place] [address] Dr. Osmar CoxCreatinine [Mass/Vol]0.80 mg/dLNormal0.55-1.02The [facility] HospitalComment on above:Performed By: #### BNP, BMP, LIVER, LIPID #### [facility] [address] [place] [address] Dr. Osmar SnellGFR-AF EQUATORIAL GUINEAN>60Normal>=60The [facility] HospitalComment on above:Performed By: #### BNP, BMP, LIVER, LIPID #### [facility] [address] [place] [address] Dr. Osmar SnellGFR-NON AF EQUATORIAL GUINEAN>60Normal>=60The [facility] HospitalComment on above:Performed By: #### BNP, BMP, LIVER, LIPID #### [facility] [address] [place] [address] Dr. Osmar CoxGlucose [Mass/Vol]100 mg/jHExealr90-869SboBlanchard Valley Health System Comment on above:Performed By: #### BNP, BMP, LIVER, LIPID #### [facility] [address] [place] [address] Dr. Osmar CoxPotassium [Moles/Vol]4.6 mmol/LNormal3.5-5.1[facility] Comment on above:Performed By: #### BNP, BMP, LIVER, LIPID #### [facility] [address] [address] [address] Osmar CoxSodium [Moles/Vol]137 mmol/DCjhsgn265-820ZlnBlanchard Valley Health System Comment on above:Performed By: #### BNP, BMP, LIVER, LIPID #### [facility] [address] [address] [address] Osmar CoxUrea nitrogen [Mass/Vol]20.0 mg/dLCritically high7.0-18.0The [facility] HospitalComment on above:Performed By: #### BNP, BMP, LIVER, LIPID #### [facility] [address] [place] [address] Dr. Osmar Klein nitrogen/Creatinine [Mass ratio]25.0 mg/mgNoCleveland Clinic Mentor HospitalComment on above:Performed By: #### BNP, BMP, LIVER, LIPID #### [facility] [address] [place] [address] Dr. Osmar Olivera CHEST 2 Von [id number] CHEST 2 VEXAMINATION: XR CHEST 2 V [...] Electronically authenticated by: CONSUELO TELLES Date: 2022-06-04 19:26[facility] HospitalHEMOGLOBINon 10-71-9906Tlcmwwttbq (Bld) [Mass/Vol]12.1 g/dL Jtujfc19.0-16.0[facility] SystemComment on above:Performed By: #### HGB #### [facility] [address] [place] [address] Dr. Osmar Olivera CHEST 2 Von [id number] CHEST 2 VEXAMINATION: XR CHEST 2 V [...] Electronically authenticated by: CONSUELO TELLES Date: 2022-06-02 19:[address] [place] [address] STRESS/REST MULTIon 97-87-9431UZ STRESS/REST MULTIPatient: NAZARIO MEDLEY Exam Date: 05/06/2022 : 1960 Gender:F Ordering : DR NOLA RAMIREZ . Admission #: [id number] Family : Order #: [id number] CLICK HERE TO VIEW EXAM RADIOLOGY REPORT [...] nuclear medicine myocardial perfusion scan. Dictated by: Aman Kirk M.D. on 05/07/2022 at 11:02 Approved by: Aman Kirk M.D. on 05/07/2022 at 11:04[facility] HospitalECHOCARDIO M/2D COMPLETEon 12-20-9372IKILLZVHPU M/2D COMPLETEPatient: NAZARIO MEDLEY Exam Date: 04/29/2022 : 1960 Gender:F Ordering : DR NOLA RAMIREZ . Admission #: [id number] Family : Order #: [id number] CLICK HERE TO VIEW EXAM ECHOCARDIOGRAM REPORT [...] by: Jessie Arnett M.D. on 04/30/2022 at 20:09[facility]uff[facility] HospitalLITHIUMon 38-30-6040Oqtgwlt (Sin(R)), Serum0.6 mmol/LNormal0.5-1.2 [facility] on above:Result Comment: Plasma concentration of 0.5 - 0.8 mmol/L are advised for long-term use; concentrations of up to 1.2 mmol/L may be necessary during acute treatment. Detection Limit = 0.1 <0.1 indicates None DetectedPerformed By: #### LITHIUM ####[facility] Lewgtvuviu[address] [place], [place] [address]Dr. Osmar CoxLIPID PROFILE on 22-16-6318WDQX-HDL RATIO NORMSMartins Ferry HospitalComascension st. john hospital on above:Result Comment: 3.3 - 4.4 LOW RISK 4.4 - 7.1 AVERAGE RISK 7.1 - 11.0 MODERATE RISK >11.0 HIGH RISKPerformed By: #### TSH, T4, LIPID, CMP ####[facility] [address] [address]Dr. Osmar Cox Cholesterol [Mass/Vol]269 mg/dLCritically high<=200[facility] on above:Performed By: #### TSH, T4, LIPID, CMP ####[facility] [address] [address]Dr. Osmar CoxCholesterol in HDL [Mass/Vol]48 mg/uEPqogsr65-67Hov [facility] on above: Performed By: #### TSH, T4, LIPID, CMP ####[facility] [address] [address]Dr. Yilan ChangCholesterol in LDL [Mass/Vol] 145.8 mg/dLParkview Health Bryan Hospital on above:Performed By: #### TSH, T4, LIPID, CMP ####[facility] [address] [address]Dr. Yilan ChangCholesterol.total/Cholesterol in HDL [Mass ratio]5.6 {ratio}NormalThe [facility] HospitalComascension st. [facility] hospital on above:Performed By: #### TSH, T4, LIPID, CMP ####[facility] Frdwkvmayh[address] [place], [place] [address]Dr. Yilan ChangHDL NORMAL> or = 60 mg/dl - LOW CARDIOVASCULAR RISK <40 mg/dl - HIGH CARDIOVASCULAR RISKBlanchard Valley Health System Bluffton HospitalComascension st[facility] on above: Performed By: #### TSH, T4, LIPID, CMP ####[facility] Wxcxlf[address]of[address] [place], [place] [address]Dr. Yilan ChangLDL CALC NORMALSEE BELOWBlanchard Valley Health System Bluffton HospitalComment on above:Result Comment: <100 mg/dl OPTIMAL 100 - 129 mg/dl NEAR OR ABOVE OPTIMAL 130 - 159 mg/dl BORDERLINE HIGH 160 - 189 mg/dl HIGH >190 mg/dl VERY HIGHPerformed By: #### TSH, T4, LIPID, CMP ####[facility] [address] [address]Dr. Yilan ChangTriglyceride [Mass/Vol]376 mg/dLCritically high<=150[facility] SystemComasc[facility] on above: Performed By: #### TSH, T4, LIPID, CMP ####[facility] [address] [address]Dr. Yilan ChangVLDL CALC75.2 mg/dLBlanchard Valley Health System Bluffton HospitalComascension st. j[facility] hospital on above:Performed By: #### TSH, T4, LIPID, CMP ####[facility] [address] [address]Dr. Yilan ChangPROF 14(COMP METB)on 86-14-2265Otuchmu [Mass/Vol]3.4 g/dLNormal 3.4-5.0The [facility] HospitalComment on above:Performed By: #### TSH, T4, LIPID, CMP ####[facility] [address] [address]Dr. Yilan ChangAlbumin/Globulin [Mass ratio]1.0 {ratio}NormalBlanchard Valley Health System Comment on above:Performed By: #### TSH, T4, LIPID, CMP ####[facility] [address] [address]Dr. Yilan ChangALP [Catalytic activity/Vol]118 U/LCritically ktpb02-924Sjw [facility] HospitalComment on above: Performed By: #### TSH, T4, LIPID, CMP ####[facility] Mxapomoitj[address] [place], [place] [address]Dr. Yilan ChangALT [Catalytic activity/Vol]17 U/L Piyogh21-42Qrf [facility] HospitalComment on above:Performed By: #### TSH, T4, LIPID, CMP ####[facility] Dnsurorjrr[address] [place], [place] [address]Dr. Yilan ChangAnion gap [Moles/Vol]11.3 mmol/LNormalThe [facility] Comment on above:Performed By: #### TSH, T4, LIPID, CMP ####[facility] Imchvwrsjz[address] [place], [place] [address]Dr. Yilan ChangAST [Catalytic activity/Vol]11 U/LCritically gqy11-72Ygw [facility] HospitalComment on above: Performed By: #### TSH, T4, LIPID, CMP ####[facility] Rnavpbanuv[address] [place], [place] [address]Dr. Yilan ChangBilirubin [Mass/Vol]0.2 mg/dL Normal0.2-1.0The [facility] HospitalComment on above:Performed By: #### TSH, T4, LIPID, CMP ####[facility] [address] [address]Dr. Yilan ChangCalcium [Mass/Vol]8.7 mg/dLNormal8.5-10.1The [facility] HospitalComment on above:Performed By: #### TSH, T4, LIPID, CMP ####[facility] [address] [address]Dr. Yilan Cox Chloride [Moles/Vol]106 mmol/MFhboqj93-006Ihi [facility] HospitalComment on above: Performed By: #### TSH, T4, LIPID, CMP ####[facility] Hrtmpipxjv[address] [place], [place] [address]Dr. Yilan ChangCO2 [Moles/Vol]23.6 mmol/LNormal 21.0-32.0The [facility] HospitalComment on above:Performed By: #### TSH, T4, LIPID, CMP ####[facility] Drrlajaetx[address] [place], [place] [address]Dr. Yilan ChangCreatinine [Mass/Vol]0.86 mg/dLNormal0.55-1.02[facility] SystemComasc[facility] on above:Performed By: #### TSH, T4, LIPID, CMP ####[facility] Khqrphblos[address] [place], [place] [address]Dr. Yilan ChangEGFR- AF EQUATORIAL GUINEAN>=60Normal>=60[facility] on above:Performed By: #### TSH, T4, LIPID, CMP ####[facility] Mfebenyxtt[address] [place], [place] [address]Dr. Yilan ChangEGFR-NON AF EQUATORIAL GUINEAN>=60Normal>=60[facility] on above:Performed By: #### TSH, T4, LIPID, CMP ####[facility] Sbtgzhidjo[address] [place], [place] [address]Dr. Yilan ChangGlobulin (S) [Mass/Vol]3.3 g/dLNormalThe [facility] HospitalComascension [facility] on above:Performed By: #### TSH, T4, LIPID, CMP ####[facility] Nnfkvrcmcf[address] [place], [place] [address]Dr. Yilan ChangGlucose [Mass/Vol]104 mg/wVZngojt03-391WqsBlanchard Valley Health SystemComascension st. john hospital on above:Performed By: #### TSH, T4, LIPID, CMP ####[facility] Ydnrykmylm[address] [place], [place] [address]Dr. Yilan ChangPotassium [Moles/Vol]4.9 mmol/LNormal 3.5-5.1The [facility] HospitalComment on above:Performed By: #### TSH, T4, LIPID, CMP ####[facility] [address] [address]Dr. Yilan ChangProtein [Mass/Vol]6.7 g/dLNormal6.1-8.2The [facility] HospitalComment on above:Performed By: #### TSH, T4, LIPID, CMP ####[facility] [address]rs[address] [place], [place] [address]Dr. Yilan ChangSodium [Moles/Vol]136 mmol/MIjtuwm829-181Nmc [facility] HospitalComment on above: Performed By: #### TSH, T4, LIPID, CMP ####[facility] Btzvkicnro[address] [place], [place] [address]Dr. Yilan ChangUrea nitrogen [Mass/Vol]25.0 mg/dLCritically high7.0-18.0The [facility] HospitalComment on above:Performed By: #### TSH, T4, LIPID, CMP ####[facility] [address]cpzgjwid[address] [place], [place] [address]Dr. Yilan ChangUrea nitrogen/Creatinine [Mass ratio] 29.1 mg/mgNormalThe [facility] HospitalComment on above:Performed By: #### TSH, T4, LIPID, CMP ####[facility] [address]axf[address]vc[address] [place], [place] [address]Dr. Yilan OlxwiE6pw 43-78-1089M1 [Mass/Vol]7.60 ug/dLNormal4.80-13.90 The [facility] HospitalComment on above:Performed By: #### TSH, T4, LIPID, CMP ####[facility] [address] [place], [place] [address]Dr. Yilan ChangTSHon 64-34-0922CJK4.427 uIU/mLNormal0.470-4.680The [facility] Comment on above:Performed By: #### TSH, T4, LIPID, CMP ####[facility] [address] [place], [place] [address]Qa. Osmar CERRATOMartins Ferry HospitalComment on above:Result Comment: <0.34 UIU/ml HYPERTHYROID 0.34-5.60 UIU/ml EUTHYROID >5.60 UIU/ml HYPOTHYROIDPerformed By: #### TSH, T4, LIPID, CMP ####[facility] [address] [place], [place] [address]HhKate Osmar Tate Studieson 49-43-1106Cskyuox [Mass/Vol]3.8 g/dL3.2-5.5FMetroHealth Main Campus Medical Center CtrAlbumin/Globulin [Mass ratio]1.5 {ratio}[facility] CtrALP [Catalytic activity/Vol]75 U/N48-33LaizauxcwPremier Health [facility] CtrALT No additional P-5'-P [Catalytic activity/Vol]16 U/T26-24EeexddwghPremier Health [facility] CtrAST [Catalytic activity/Vol]18 U/T36-36MrbdcqpnePremier Health [facility] CtrBasophils (Bld) [#/Vol]0.1 10*3/uL0.0-0.2FMetroHealth Main Campus Medical Center CtrBasophils/100 WBC (Bld)1.0 % [facility] CtrBilirubin [Mass/Vol]0.5 mg/dL0.3-1.2FMetroHealth Main Campus Medical Center CtrCalcium [Mass/Vol]9.2 mg/dL8.2-10.2FMetroHealth Main Campus Medical Center CtrCarbamazepine [Mass/Vol]< 2.0 ug/mLLow4.0-12.0[facility] CtrChloride [Moles/Vol]103 mmol/Q56-067YultnspufPremier Health [facility] CtrCK [Catalytic activity/Vol]46 U/X91-235EsdegybrxPremier Health [facility] CtrCK.MB [Mass/Vol]1.0 ng/mL0.6-6.3FMetroHealth Main Campus Medical Center CtrCK.MB Calc [Catalytic fraction]2.10.00-2.50[facility] CtrCO2 [Moles/Vol]24.9 mmol/L 22.0-30.0[facility] CtrCreatinine [Mass/Vol]0.58 mg/dL0.44-1.03 [facility] CtrEosinophils (Bld) [#/Vol]0.2 10*3/uL0.0-0.45 [facility] CtrEosinophils/100 WBC (Bld)3.1 %[facility] CtrErythrocyte distribution width (RBC) [Ratio]13.5 %11.9-15.3FMetroHealth Main Campus [facility] Center CtrEthanol [Mass/Vol]mg/dLPremier Health Upper [facility] CtrEthanol [Mass/Vol]TNPPremier Health [facility] CtrComment on above:Test not performed GFR/1.73 sq M predicted among blacks MDRD (S/P/Bld) [Vol rate/Area] mL/min/{1.73_m2}[facility] CtrComment on above:GFR estimated reference range: According to KDOQI guidelines, <60 ml/min/1.73m2 is sufficient todiagnose a patient with chronic kidney disease.GFR/1.73 sq M predicted among non-blacks MDRD (S/P/Bld) [Vol rate/Area]mL/min/{1.73_m2}[facility] CtrGlobulin (S) [Mass/Vol]2.6 g/dLPremier Health Upper Valley Medical Center CtrGlucose [Mass/Vol]96 mg/kQ79-044WewzgokpnPremier Health [facility] CtrComment on above:ADA recommended reference range Random Glucose Reference Range is dependent on time and content of last meal. Glucose of more than 200 mg/dL in a nonstressed, ambulatory subject supports the diagnosis of Diabetes Mellitus.Hematocrit (Bld) [Volume fraction]38.7 % 34.0-46.4FMetroHealth Main Campus Medical Center CtrHemoglobin (Bld) [Mass/Vol]12.8 g/dL 11.8-15.4FMetroHealth Main Campus Medical Center CtrLymphocytes (Bld) [#/Vol]2.1 10*3/uL 1.00-4.8[facility] CtrLymphocytes/100 WBC (Bld)33.0 %[facility] HospitalMCH (RBC) [Entitic mass]28.3 pg24.7-34.3FAvita Health System Galion HospitalMCHC (RBC) [Mass/Vol]33.1 g/dL32.0-35.0[facility] MCV (RBC) [Entitic vol]85.4 jD64-381MsfjjhjhoPremier Health [facility] CtrMonocytes (Bld) [#/Vol]0.5 10*3/uL0.0-0.8[facility] CtrMonocytes/100 WBC (Bld)7.2 %[facility] CtrNeutrophils (Bld) [#/Vol]3.5 10*3/uL 1.8-7.7FMetroHealth Main Campus Medical Center CtrNeutrophils/100 WBC (Bld)55.7 %[facility] CtrPharmacy Creatinine Clearance (Chem87.4588[facility] CtrPlatelet mean volume (Bld) [Entitic vol]6.9 fL6.3-10.7FMetroHealth Main Campus Medical Center CtrPlatelets (Bld) [#/Vol]270 10*3/jJ953-198UzfpvhlvsPremier Health [facility] Center CtrPotassium [Moles/Vol]4.3 mmol/L3.5-5.1FMetroHealth Main Campus [facility] Center Ctr Protein [Mass/Vol]6.4 g/dL6.1-7.9[facility] CtrRBC (Bld) [#/Vol] 4.52 10*6/uL3.60-5.00[facility] CtrSodium [Moles/Vol]136 mmol/L 136-146[facility] CtrTroponin I.cardiac [Mass/Vol]ng/mL0-0.02 [facility] CtrComment on above:[place] Cut off value > or equal to 0.03 ng/mL in conjunction with clinical conditions of myocardial infarction. (www.escardio.org/guidelines)Urea nitrogen [Mass/Vol]18 mg/dL9-23[facility] CtrValproate [Mass/Vol]52.6 ug/mL50.0-100.0[facility] CtrComment on above:Last dose: -WBC (Bld) [#/Vol]6.3 10*3/uL3.8-11.6 [facility] CtrAmphetamines Ql (U)NegativePremier Health [facility] CtrBarbiturates Ql (U)NegativePremier Health [facility] Ctr Benzodiazepines Ql (U)NegativePremier Health [facility] CtrBilirubin Ql (U) NegativePremier Health [facility] CtrCannabinoids Screen Ql (U)Negative [facility] CtrComment on above:These are unconfirmed results and should not be used for legal purposes. Drug Cut-Off Concentration: AMPH 1000 ng/mL ALFREDO 200 ng/mL JAXON 200 ng/mL COCM 300 ng/mL OP 300 ng/mL PCP 25 ng/mL THC 20 ng/mLClarity Refractometry automated (U)ClearPremier Health [facility] Center CtrCocaine Ql (U)NegativePrem[facility] CtrColor (U)YellowPrem[facility] CtrGlucose Auto test strip (U) [Mass/Vol]Normal mg/dLPremier Health [facility] CtrHemoglobin Auto test strip Ql (U)[facility] CtrKetones (U) [Mass/Vol]NegativePrem[facility] Health [facility] CtrLeukocyte esterase Auto test strip Ql (U)NegativePrem[facility] Health [facility] CtrNitrite Ql (U)[facility] CtrOpiates Ql (U)[facility] CtrpH (U)6.5 [pH]5.0-9.0[facility]tr Phencyclidine Ql (U)NegativePrem[facility] CtrProtein (U) [Mass/Vol] NegativePrem[facility] Health [facility] CtrSpecific gravity (U) [Rel density]1.018 1.001-1.030[facility] CtrUrobilinogen (U) [Mass/Vol]Normal mg/dL [facility] Ctr Vital Signs Date TimeVital SignValuePerforming CghzhgtkrPjcrpdno59-63-7428 12:35-0400 Diastolic blood ljsttbto56 mm[Hg]Nola Ramirez MD Work Phone: [facility]10-01-2025 12:35-0400 Heart rate70 /Hector Ramirez MD Work Phone: [phone]10-01-2025 12:35-0400 Respiratory rate16 /Hector Ramirez MD Work Phone: [facility]10-01-2025 12:35-0400 SaO2% (BldA) [Mass fraction]100 %Nola Ramirez MD Work Phone: [phone]10-01-2025 12:35-0400 Systolic blood yyznutxf058 mm[Hg]Nola Ramirez MD Work Phone: [phone] [address]10-01-2025 11:18-0400 Body jducjq656.02 cmNola Ramirez MD Work Phone: [phone]10-01-2025 11:18-0400 Body umkvct87.91 kgNola Ramirez MD Work Phone: [phone]10-12-2022 13:44-0400 Blood Pressure LocationMichael NILL [facility]10-12-2022 13:44-0400Diastolic blood rgmritdh16 mm[Hg]Ganga NILL [facility]10-12-2022 13:44-0400Heart rate 72 /minMichael NILL [facility]10-12-2022 13:44-0400 Respiratory rate16 /minMichael NILL [facility]10-12-2022 13:44-0400Systolic blood syrxpfeq443 mm[Hg]Ganga NILL [facility]04-16-2019 15:00-0400Body Vlrbjciomrv91.8 [degF][facility]04-16-2019 15:00-0400BP Ostwdfbcz55 mm[Hg][facility] 03-07-2019 15:00-0400BP Sdnersce582 mm[Hg][facility]04-16-2019 15:00-0400Pulse (Heart Rate)78 /[facility]04-16-2019 15:00-0400Pulse Udpkykep80 %[facility]04-16-2019 15:00-0400Respiratory Rate16 /[facility] CtrBody weightDouglas [facility] CtrNEGATED: Highlighted rowBMI (Body Mass Index)Nola [facility]tr NEGATED: Highlighted ednaBlanyeightfede [facility] Ctr Encounters Encounter DateEncounter TypeCare ProviderFacilityStart: 74-30-3833edexqdthqr Nola Leiva AnnieFacility:[facility]ontart: 08-22-2025 End: 11-99-1961rpvvafcqnpQvpaflc Cali AnnieFacility:[facility] Start: 31-22-1183Khc-patient / Non-visitCatherine L Ly DO-[facility] Work Phone: Start: 94-35-5137Tdvyaxrzba Robert Walker MDTH[facility] CredibleStart: 07-02-2025 End: 65-44-4037xsobqqsdpsCIZSUVCleveland Clinic [facility]ina Hospital Start: 04-19-2025 End: 42-59-5384kyunfdygjuJdmuqmq M Hoy MD Work Phone: [facility] Ctr Work Phone: Start: 04-19-2025 End: 95-83-7423Rrcmkniw ReferredNola Ramirez MD Work Phone: [phone] [place] [address] Ctr-LAB Path Spec Momo HospStart: 18-61-1831Yxcjftxogq Doris Ramirez MD Work Phone: [facility] Ctr- CredibleStart: 10-21-2022 End: 97-74-0877wsuzvxyxfvItqnyit R NILLFacility:[facility] BellevueStart: 10-21-2022 End: 24-08-0741Aphdybx encounter procedureMichael R NILL General Surgery Nill/Said Momo Start: 37-36-3437Diijxrbwi for preprocedural laboratory examinationDR GANGA Kiserevue HospitalStart: 10-07-2022 End: 13-22-4920rumznzkspwJZ MICHAEL NILLFacility:P9Znequ: 10-03-2022 End: 76-81-0510dyossnyayuAW GANGA CAITFacility:K8Dysdo: 10-03-2022 End: 23-13-3950Nnecuueiy for preprocedural laboratory examinationDR GANGA CAIT Facility:P8Qbfyh: 09-02-2022 End: 16-27-3259bxtppxxpowDdcsglm R NILLFacility:[facility] BellevueStart: 09-02-2022 End: 56-79-6309Hnvmave encounter procedureMichael R NILL General Surgery Nill/Said Momo Start: 08-11-2022 End: 57-80-4859bamqjiwdezLD NOLA HOYFacility:B1Yzyrh: 08-06-2022 End: 76-84-5884rgewjzdnesTM Aman KirkFacility:C7Hwmav: 07-28-2022 End: 37-03-8050qshbyrjkkzCCVGKJT HOYFacility:UTMCStart: 07-24-2022 End: 96-51-0710krykxvfmkyIM JESSIE TOLENTINOELFacility:T9Kznto: 07-20-2022 End: 14-15-1980mmaittabozQO CONSUELO Ellsworth WESTFacility:J7Goigb: 07-10-2022 End: 38-12-7950bmenvyizasPILISEB BOESFacility:M5Ajylt: 06-04-2022 End: 37-40-2839ckfhszyujzNS CONSUELO V WESTFacility:C4Lfubo: 06-02-2022 End: 25-57-2662thvymnbrrvQD CONSUELO V WESTFacility:R7Odetr: 81-82-7670evqkmjinsrEY [place]OLA HOYFacility:R4Lkdxk: 05-06-2022 End: 81-18-4556uchphasjxrCU [place] HOYFacility:O6Gcmuk: 04-30-2022 End: 09-12-0834bklvsqpuceIG [place] HOYFacility:S7Bgyug: 83-64-0843pwaexaybtmWW [place] HOYFacility:Y9Xllqk: 03-19-2022 End: 45-66-3424nxhxeccecgVZ DOCTOR MISCFacility:T9Gthfj: 03-15-2019 End: 30-47-2693Nkiofad encounter procedureAt[facility] Start: 03-07-2019 End: 48-98-6892Nvgffddeq to day surgeryAt[facility] Start: 02-01-2018 End: 96-98-8085Wwlitaqww department patient visitAt[facility] Start: 06-07-2014 End: 40-08-3289Xfoozjhmdy and management of inpatientAt[facility] Start: 06-17-2011 End: 99-77-8924Ptkydzzpyn and management of inpatientAt[facility] Start: 05-01-2011 End: 86-26-1586Axhzsrdrrq and management of inpatientAt[facility] Start: 05-27-2010 End: 13-92-4448Rpbkiuuhat RecurringAtrium Health [facility] Start: 05-22-2010 End: 75-61-1313Zgdlqqtisi RecurringDoThe [facility] Start: 04-22-2010 End: 79-83-5789Jltsepubru RecurringDoThe [facility] Start: 03-22-2010 End: 99-28-4111Iasbrvygow RecurringDoCentral [facility] Start: 02-20-2010 End: 05-67-5818Qzjsckezel RecurringDoThe [facility] Start: 01-20-2010 End: 23-20-4632Lwqtihhufr [facility]ringDougL[facility] Start: 01-20-2010 End: 37-27-8340Ubtpooroow RecurringDougLake District [facility] Start: 01-16-2010 End: 62-69-7787Cekojurgyk RecurringDougLake District [facility] Start: 12-23-2009 End: 59-81-3854Ceyqewzccs RecurringDougLake [facility] Start: 11-23-2009 End: 25-85-6196Uuxbyozsuf RecurringDougLake District [facility] Start: 11-22-2009 End: 74-39-7139Adkgsossmk RecurringDougLake [facility] Start: 10-22-2009 End: 42-13-2599Dzszzwwfib RecurringDougLake [facility] Start: 10-15-2009 End: 83-28-6902Vpocinzzrf RecurringDougLake District [facility] Start: 09-22-2009 End: 84-88-1248Nubdezizjp RecurringDougLake District [facility] Start: 08-22-2009 End: 49-22-7990Skhzqsfqjk RecurringDougLake [facility] Start: 08-06-2009 End: 88-46-9266Guioiivyzs RecurringDougLake [facility] Start: 07-02-2009 End: 08-39-8584Gfaxnlqqte RecurringDougLake [facility] Start: 06-04-2009 End: 09-66-4303Sflfyfuklc [facility]ringDoug[facility] Start: 04-22-2009 End: 59-70-8679Oszmiiodbo Rec[facility]ringDougLake [facility] Start: 03-22-2009 End: 91-73-4330Uitdwgdebk RecurringAt[facility] Start: 02-20-2009 End: 26-90-2265Xusppphior RecurringAt[facility] Start: 02-10-2009 End: 83-76-7730Pmylrhzhu department patient visitDoThe [facility] Start: 01-21-2009 End: 29-58-1753Uhcjsdupgz [facility] Start: 12-24-2008 End: 79-08-6482Flaafipgfr RecurringAt[facility] Start: 11-23-2008 End: 84-98-0559Kspoqldapq [facility] Start: 10-22-2008 End: 45-66-0289Iddxioynes RecurringDougLake District [facility] Start: 09-22-2008 End: 92-37-7783Poldlxzyzo RecurringDoCentral [facility] Start: 08-22-2008 End: 97-09-0465Sckrkzpftn RecurringDougLake District [facility] Start: 07-24-2008 End: 11-57-3225Dyjlcvpbmw [facility] Start: 07-02-2008 End: 27-54-8378Hmjoqjfxte and management of inpatientDouglas [facility] Start: 06-22-2008 End: 19-23-9498Xzgpcbojju RecurringDougLake District [facility] Start: 06-05-2008 End: 78-69-4853Eqvvkhiawk and management of inpatientDouglas [facility] Start: 05-29-2008 End: 24-45-6743Lkhmaacjey RecurringDoCentral [facility] Start: 04-24-2008 End: 00-30-2105Rurxfkhuqq [facility]ringW[facility] Start: 03-22-2008 End: 91-86-8861Fnynqixzyc [facility] Start: 02-21-2008 End: 84-84-4929Znrzsyinur [facility] HospitalDo[facility] Start: 02-14-2008 End: 60-20-0639Qidhwegnqj [facility] Start: 12-23-2007 End: 59-66-1193Efowrzsoas [facility] HospitalDoug[facility] Start: 12-20-2007 End: 63-74-7990Ptmgbtwivz and management of inpatientDougLake District [facility] Start: 11-22-2007 End: 12-13-9888Rduttforhq [facility] HospitalDougL[facility] Start: 10-22-2007 End: 51-27-9429Fhwsoemxtf [facility] HospitalDougL[facility] Start: 09-22-2007 End: 75-71-5032Akjjzogyvk RecurringugThree Rivers [facility] Start: 08-22-2007 End: 37-98-6023Ggzzdxvfbx [facility] Start: 07-23-2007 End: 63-17-9106Irtrqvknch [facility] Start: 06-22-2007 End: 63-50-5475Ycgbtcqgoz [facility] Start: 05-22-2007 End: 36-58-4689Fvgiexfcsh [facility] Start: 04-28-2007 End: 63-41-1952Jjxncfpqd department patient visitAt[facility] Start: 04-28-2007 End: 47-64-9209Uhwqxvs encounter procedureDougThree Rivers Healthcare [facility] Start: 04-28-2007 End: 30-08-8642Ifuvxrewhs [facility] Start: 03-01-2002 End: 78-04-0295Gfxyzizanc [facility] Start: 03-01-2002 End: 67-58-4091Wnunihmqjf and management of inpatientDoug[facility] Start: 03-24-2001 End: 09-83-2786Ejmtewzuwr RecurringDougThree [facility] Start: 03-24-2001 End: 35-77-4934Qfregpifqo and management of inpatientDouglas [facility] Start: 09-27-1996 End: 61-24-4546Kxaqrojzmn and management [facility] inpatientDoM[facility] Start: 08-19-1995 End: 17-07-6828Mpniijqfk department patient visitDoMorrow [facility] Start: 09-27-1993 End: 42-28-5060Aivdcmi encounter procedureDoMorrow County [facility] Procedures DateProcedureProcedure DetailPerforming ClinicianStart: 10-07-2022 EsophagogastroduodenoscopyMichael NILL Start: 79-18-3466Dectpvc catheterizationMichael NILL Start: 19-62-8392Cuhqcr repairMichael NILL Start: 01-74-0939Georjpgpnmg of shoulderA Olexa Nolan Start: 08-12-8181Zmjregypn hysterectomyMichael NILL Arthroscopy of shoulderMichael NILL CholecystectomyMichael NILL Ectopic (disorder)Ganga NILL Exploratory laparotomyMichael NILL History of subtotal thyroidectomyMichael NILL History of tonsillectomyMichael NILL Partial resection of colonMichael NILL Plan of Treatment DateCare ActivityDetailAuthorStart: 16-39-2608LcobfbvunMercy Health – The Jewish Hospital Start: 22-16-9484Sdupfbsw identified in Urine by CultureUrine Kettering Healthtart: 15-23-0146LjzurParkwood HospitalPatient EducationGastritis - Discharge instructions Know your Meds [facility] Work Phone: Payers DatePayer CategoryPayerPolicy [id number]-bao [id number] [id number] [id number] 2.0.1.209545.3.57[id number] 2.0.1.295423.3.57[id number] 2.0.1.170531.3.579.[id number] 2.0.1.419718.3.579.[id number] 2.0.1.234418.3.57[id number] 2.0.1.874117.3.57[id number] 2.840.1.577330.3.57[id number] 2.0.1.491844.3.57[id number] 2.840.1.528671.3.57[id number] 2.840.1.772886.3.57[id number] 2.16.840.1.900364.3.579.2.20366-89-2531Kamvukh1834322 2.16.840.1.651070.3.579.2.[id number] 2.16.840.1.139602.3.579.[id number] 2.16.840.1.005091.3.57[id number] 2.16.840.1.172397.3.579.2.04080-66-8246Gqnzwlw0247214 2.16.840.1.922103.3.579.2.[id number] 2.16.840.1.518091.3.579.2.[id number] 2.16.840.1.154180.3.57[id number] 2.16.840.1.18[id number] u30wesvf-141o-882m-o8jr-[id number] 2..840.1.57947[id number] 2.840.1.671959.3.579.2.531 [id number] 2.16840.1.678818.3.579.2.531 Social History DateTypeDetailFacilityStart: 09-02-2022 End: 44-12-8748Vqazxau smoking statusEx-smoker (finding)[facility] [place] Tobacco smoking statusNeverGeneral Surgery BellevueSex Assigned At BirthFemal [facility] [place] Start: 36-28-6557PuiBjbjon (finding)[facility]ontart: 86-00-3784Dys Assigned At [facility] Medical Equipment Procedure CodeEquipment CodeEquipment Original TextEquipment IdentifierDates Shoulder arthroscopyANCHOR 5.5 SWIVELOCKFDAStart: 93-51-0232Zxnrtcnd arthroscopy ANCHOR 5.5 SWIVELOCKFDAStart: 06-52-3071PKATYU REPAIR, ROBOT ASSISTED Ganga PEARCE MD 12/05/20 Non Biological Abdomen{01}[id number]{17}[id number]{10}[id number] FDAStart: 12-05-2020 Functional Status YoofUlevojyqxoMaxgikXxvrtqmn05-09-0044Dqrrplkuja StatusN/AGeneral Surgery [place] Progress note 07-02-2025 Note Date & RwtrPezuVjxvaodu13-80-5203 NoteUT Cardiology - [facility] Kaitlynn Medley is a 65 y.o. [...] use: Not Currently Drug use: Never CASSANDRA Nazario is seen in follow-up. She is a [...] denies tyrese (more content not included)...[facility] Clinical Note 10-07-2022 Note Date & EhziVeilKunbgade88-65-5946 NoteOPERATIVE NOTE OPERATION DATE: 10/07/2022 PREOPERATIVE DIAGNOSIS: [...] in good condition. CC: Nola Ramirez M.D.[facility] Clinical Note 09-02-2022 Note Date & LkstCemqDucwipfh38-98-8834 NoteChief Complaint consultation for abnormal barium swallow [...] Known Allergies Social Hi (more content not included)...[facility] SystemComment on above:Result Comment: Electronically Signed By: CAIT LEHMAN, Ganga Valencia\Date and Time Signed: 09/02/22 15:31 EDT Evaluation + Plan note Note Date & TypeNoteFacilityEvaluation + Plan note No data available for this section [facility] [place] Evaluation note Note Date & TypeNoteFacilityEvaluation noteNo assessment information available [facility] Work Phone: Hospital Discharge instructions Note Date & TypeNoteFacilityHospital Discharge instructions No data available for this section [facility] [place] Hospital Discharge instructions Note Date & TypeNoteFacilityHospital [...] NOT operate machinery such as power tools, [employer] mowers, Tag[employer]iiwers, sewing machines, etc. for 24 hours. - [...] problems. -Follow up with PCP. -Office number [phone]. [facility] Work Phone: Progress note Note Date & TypeNoteFacilityProgress note No data available for this section [facility] [place] Reason for referral (narrative) Note Date & TypeNoteFacilityReason for referral (narrative)No reason for referral information availablePremier Health [facility] Work Phone: Summary Purpose Family History No Family History Records Found Relationship Condition Age at Onset Recorded Date/T hari mother Diabetes mellitus Unknown fatherHeart diseaseUnknown Advance Directives No Advanced Directives Records Found Advance Directive Response Recorded Date/ Time Advance Directives Yes February 01 018 1:31pm Chief Complaint and Reason for Visit Chief Complaint Admit Date BH July 11, 2025 8: 31am esophageal stricture August 22, 2025 1 1:03am Additional Source Comments INFORMATION SOURCE (unrecogn ized section and content) DATE CREATED AUTHOR 07/31/2022 [facility] DATE CREATED AUTHOR AUTHOR'S ORGANIZ ATION 10/14/2022 [facility] DATE CREATED AUTHOR AUTHOR'S ORGANIZ ATION 10/22/2022 [facility] DATE CREATED AUTHOR AUTHOR'S ORGANIZ ATION 07/03/2025 [facility] DATE CREATED AUTHOR AUTHOR'S ORGANIZ ATION 09/25/2025 [facility] Patient Care team [...] BE BASED ON THE PRIMARY CLINICAL RECORDS. [facility]. provides no warranty or guarantee of the accuracy or completeness of information in this document.
--- OUTSIDE RECORDS SUMMARY | 2025-10-02 06:42 | XMS_ITS | Clinical Summary ---
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 Name Role Phone Thanh Ramirez MD Primary Care Provider [phone] Allergies No known active allergies Medications MedicationSigDispense [...] recent episode depressed 06/28/2024hronic schizophrenia with acute ifsdfdlkvmki75/07/2024Nausea 06/28/2024Suicidal mtydswio30/07/2024bnormal barium qmepkmb26 Bladder woftcgbshirl01ysphagia, fsitrrcdagqjt44/24/2024 12/15/2023Esophagitis on prqvzk91HTN (hypertension)12/15/2023 12/15/2023Incisional bmjxde77MI 35.0-35.9,adult12/15/2023 12/15/2023Obstructive sleep apnea byiqlwlf72ectal prolapse estless legs pdpcwkjp71yspnea on uwthqeun14/07/2022Mixed mqokayczywppzz45/07/2022 Encounters DateTypeDepartmentCare DvwmBimykzfrhcb94/11/2025 10:15 AM EDTOffice Visit [facility] [address] [place] [address] Rolo Rodgers MD Primary hypertension [...] file01/13/2024CommentsUnknownSex and Gender InformationValueDate RecordedSex Assigned at TizzcUgufmr33/05/2025 4:19 PM EDT Legal HbwYfgkdb77/29/2022 10:42 PM EDTGender ZdpcqbrfTmatwb85/05/2025 4:19 PM EDTSexual OrientationHeterosexual or Hctkkrds84/05/2025 4:19 PM EDT Last Filed Vital Signs Vital SignReadingTime TakenCommentsBlood Gjzqdjue811/72007/02/2025 10:58 AM EDT Okadh6947/11/2025 10:58 AM EDTTemperature--Respiratory Rate--Oxygen Saturation 95%07/02/2025 10:58 AM EDTInhaled Oxygen Concentration--Sfujsk63.8 kg (187 lb) 07/02/2025 10:58 AM BOLJptbkd224 cm (5' 3 )07/02/2025 10:58 AM EDTBody Mass Index33.13007/02/2025 10:58 AM EDT Plan of Treatment Health MaintenanceDue DateLast DoneCommentsMedicare Annual Wellness (AWV) 1959Depression Dyampdbrk19/07/1971Adult Iahxles0703/28/1981Mammogram 1999Zoster Vaccines (1 of 2)2009Pneumococcal Vaccine: 50+ Years (2 of 2 - PCV)Fall Risk Gysezqdiu74/07/2024COVID-19 Vaccine (3 - season)/03/2021, 01/25/2021Influenza Vaccine (#1) [...] MemberRelationshipSpecialtyStart DateEnd Thanh Ramirez MD [address] [address] [facility] - Iyrubug69/7/22
--- OUTSIDE RECORDS SUMMARY | 2025-10-02 06:42 | XMS_ITS | Patient Health Record ---
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 Name Role Phone Curtis Valencia Primary Care Provider Allergies Allergen (clinical drug ingredient) Drug/Non Drug Allergy documented on EMR Reaction Allergy Type Onset Date Status primidone Primidone diarrhea Drug Allergy Active Results Component Value Reference Range Notes AMYLASE Reviewed date:04/19/2025 06:07:26 PM Interpretation: Performing Lab: Notes/Report: [facility] , Amylase 29 25-115 U/L Performing Lab:see noteML - [facility] LBCBC AUTO DIFF Reviewed date:04/19/2025 06:07:26 PM Interpretation: Performing Lab: Notes/Report: [facility] ,White Blood Count8.14.0-11.0 10 3/uLRed Blood Count4.634.20-5.40 10 6/uL Uvgegutcgx38.512.0-16.0 g/hZVjmgliipke18.836.0-48.0 %Mean Corpuscular Jepywn74.0 81.0-99.0 fLMean Corpuscular Jdzqpmadnj19.026.7-34.0 pgMean Corpuscular HGB Conc 31.429.9-35.2 g/dLRed Cell Distribution Width13.811.0-15.0 %Platelet Khsfg763 150-450 10 3/uLMean Platelet Volume8.79.5-13.5 fLNeutrophils Percent Auto54.4 43.0-75.0 %Lymphocytes Percent Auto30.420.5-60.0 %Monocytes Percent Auto11.31.7- 12.0 %Eosinophils Percent Auto2.40.9-7.0 %Basophils Percent Auto0.50.2-2.0 % Immature Granulocytes Pct Auto1.00.0-0.5 %Neutrophils Absolute Auto4.41.4-6.5 10 3/uLLymphocytes Absolute Auto2.51.2-3.8 10 3/uLMonocytes Absolute Auto0.90.3-0.8 10 3/uLEosinophils Absolute Auto0.20.0-0.7 10 3/uLBasophils Absolute Auto0.00.0- 0.1 10 3/uLImmature Granulocytes Abs Auto0.080.00-0.03 10 3/uLPerforming Lab:see noteML - [facility] LBLIPASE Reviewed date:04/19/2025 06:07:26 PM Interpretation: Performing Lab: Notes/Report: [facility] ,Rwhmfa43.016.0-77.0 U/LPerforming Lab:see noteML - [facility] LBCBC AUTO DIFF Reviewed date:03/14/2025 07:27:36 PM Interpretation: Performing Lab: Notes/Report: [facility] ,White Blood Count15.04.0-11.0 10 3/uLRed Blood Count5.254.20-5.40 10 6/uL Kazkhdyfox26.312.0-16.0 g/vLDpmsvcagmw65.336.0-48.0 %Mean Corpuscular Nujqwe56.4 81.0-99.0 fLMean Corpuscular Jrzezbzqeb95.226.7-34.0 pgMean Corpuscular HGB Conc 32.329.9-35.2 g/dLRed Cell Distribution Width14.511.0-15.0 %Platelet Iibzq164 150-450 10 3/uLMean Platelet Volume8.79.5-13.5 fLNeutrophils Percent Auto72.0 43.0-75.0 %Lymphocytes Percent Auto17.020.5-60.0 %Monocytes Percent Auto9.71.7- 12.0 %Eosinophils Percent Auto0.10.9-7.0 %Basophils Percent Auto0.50.2-2.0 % Immature Granulocytes Pct Auto0.70.0-0.5 %Neutrophils Absolute Auto10.81.4-6.5 10 3/uLLymphocytes Absolute Auto2.51.2-3.8 10 3/uLMonocytes Absolute Auto1.50.3- 0.8 10 3/uLEosinophils Absolute Auto0.00.0-0.7 10 3/uLBasophils Absolute Auto0.1 0.0-0.1 10 3/uLImmature Granulocytes Abs Auto0.100.00-0.03 10 3/uLPerforming Lab:see noteML - [facility] LBUA RANDOM W or MICROSCOPIC Reviewed date:04/19/2025 06:07:26 PM Interpretation: Performing Lab: Notes/Report: [facility] ,Color UrineLT. YELLOWYELLOWClarity UrineCLEARCLEARSpecific [place] Urine<=1.005 1.005-1.025pH Urine6.05.0-9.0Protein UrineNEGATIVENEG/TRACE mg/dLGlucose Urine UANEGATIVENEGATIVE mg/dLBilirubin UrineNEGATIVENEGATIVEKetones UrineNEGATIVE NEGATIVE mg/dLBlood UrineNEGATIVENEGATIVENitrite UrinePOSITIVENEGATIVE Urobilinogen Urine0.20.2-1.0 EU/dLLeukocyte Esterase UrineSMALLNEGATIVEWBC Urine 5-10NONE SEEN #/HPFRBC UrineNONE SEEN0-2 #/HPFBacteria UrineLARGENONE SEEN #/HPF Mucus UrineNONE SEENNONE SEENSquamous Epithelial Cell UrineRARENONE/RARE #/LPF Crystals Seen?None SeenNone Seen #/HPFCast Seen?NONE SEENNONE SEEN #/LPFUrine Culture IndicatedALREADY ORDEREDPerforming Lab:see noteML - [facility] LBLithium (Eskalith(R)), Serum Reviewed date:04/22/2025 04:42:04 PM Interpretation: Performing Lab: Notes/Report: [facility] ,[place] (Eskalith(R)), Serum<0.10.5-1.2 mmol/L Verified by repeat analysis A concentration of 0.5-0.8 mmol/L is advised for long-term [address] [place], [place] [id number] during acute treatment. Performed at: CB - [facility] [place] use; concentrations of up to 1.2 mmol/L may be necessary Detection Limit = 0.1 Meatcutter: Hubert Logan PhD, Phone: [phone] <0.1 indicates None Detected Performing Lab:see noteLC - [facility] LBCBC AUTO DIFF Reviewed date:08/05/2025 01:05:55 PM Interpretation: Performing Lab: Notes/Report: [facility] ,White Blood Count14.14.0-11.0 10 3/uLRed Blood Count5.444.20-5.40 10 6/uL Joihmiaoxb75.712.0-16.0 g/zIXmevslmjxp28.436.0-48.0 %Mean Corpuscular Snnkaa78.5 81.0-99.0 fLMean Corpuscular Yxoworjsgy84.026.7-34.0 pgMean Corpuscular HGB Conc 32.429.9-35.2 g/dLRed Cell Distribution Width14.811.0-15.0 %Platelet Nfonn500 150-450 10 3/uLMean Platelet Volume8.69.5-13.5 fLNeutrophils Percent Auto70.2 43.0-75.0 %Lymphocytes Percent Auto19.720.5-60.0 %Monocytes Percent Auto8.51.7- 12.0 %Eosinophils Percent Auto0.20.9-7.0 %Basophils Percent Auto0.90.2-2.0 % Immature Granulocytes Pct Auto0.50.0-0.5 %Neutrophils Absolute Auto9.91.4-6.5 10 3/uLLymphocytes Absolute Auto2.81.2-3.8 10 3/uLMonocytes Absolute Auto1.20.3-0.8 10 3/uLEosinophils Absolute Auto0.00.0-0.7 10 3/uLBasophils Absolute Auto0.10.0- 0.1 10 3/uLImmature Granulocytes Abs Auto0.070.00-0.03 10 3/uLPerforming Lab:see noteML - [facility] LBPROF 14(COMP METB) Reviewed date:08/05/2025 01:05:55 PM Interpretation: Performing Lab: Notes/Report: [facility] ,Frrgfe948680-807 mmol/LPotassium4.03.5-5.1 mmol/ZHcljwkkn24307-181 mmol/LCarbon Ceqyaie86.121.0-32.0 mmol/LAnion Gap10.5Plfwdry66995-320 mg/dLBlood Urea Nitrogen9.07.0-18.0 mg/dLCreatinine0.730.55-1.02 mg/dLEstimated GFR ( Yazmin>60>=60 mL/min/1.73m 2Estimated GFR (Non- Virgen>60>=60 mL/min/1.73m 2BUN Creatinine Ratio12.9Iqaxdcq7.38.5-10.1 mg/dLBilirubin Total0.50.2-1.0 mg/dL Aspartate Amino Fyapwpordbf6645-43 U/LAlanine Paeqtesikyljjqlu5307-66 U/L Alkaline Lpxftlwhyfl54581-459 U/LTotal Protein7.56.4-8.2 g/dLAlbumin Level3.5 3.4-5.0 g/dLGlobulin4.0Albumin Globulin Ratio0.9Performing Lab:see noteML - [facility] LBT4 Reviewed date:08/05/2025 01:05:55 PM Interpretation: Performing Lab: Notes/Report: [facility] ,T4 Thyroxine7.604.80-13.90 ug/dLPerforming Lab:see noteML - [facility] LBTSH Reviewed date:08/05/2025 01:05:55 PM Interpretation: Performing Lab: Notes/Report: [facility] ,Thyroid Stimulating Hormone1.6050.358-3.740 uIU/mLPerforming Lab:see noteML - [facility] LBCBC AUTO DIFF Reviewed date:09/19/2025 12:36:30 PM Interpretation: Performing Lab: Notes/Report: [facility] ,White Blood Count9.74.0-11.0 10 3/uLRed Blood Count5.144.20-5.40 10 6/uL Limpzpjybh75.112.0-16.0 g/vEDteztkhvhe54.836.0-48.0 %Mean Corpuscular Pbusrn32.2 81.0-99.0 fLMean Corpuscular Peabgpynqd73.426.7-34.0 pgMean Corpuscular HGB Conc 32.229.9-35.2 g/dLRed Cell Distribution Width13.911.0-15.0 %Platelet Uckex020 150-450 10 3/uLMean Platelet Volume8.69.5-13.5 fLNeutrophils Percent Auto62.8 43.0-75.0 %Lymphocytes Percent Auto26.620.5-60.0 %Monocytes Percent Auto8.71.7- 12.0 %Eosinophils Percent Auto0.30.9-7.0 %Basophils Percent Auto1.00.2-2.0 % Immature Granulocytes Pct Auto0.60.0-0.5 %Neutrophils Absolute Auto6.11.4-6.5 10 3/uLLymphocytes Absolute Auto2.61.2-3.8 10 3/uLMonocytes Absolute Auto0.80.3-0.8 10 3/uLEosinophils Absolute Auto0.00.0-0.7 10 3/uLBasophils Absolute Auto0.10.0- 0.1 10 3/uLImmature Granulocytes Abs Auto0.060.00-0.03 10 3/uLPerforming Lab:see noteML - [facility] LBPROF CHEM 8 (BAS METB) Reviewed date:09/19/2025 12:36:30 PM Interpretation: Performing Lab: Notes/Report: [facility] ,Vwfkrv072761-209 mmol/LPotassium4.43.5-5.1 mmol/KCftlacmw99042-945 mmol/LCarbon Kwugcsz64.721.0-32.0 mmol/LAnion Gap11.0Qzyclws05409-589 mg/dLBlood Urea Fdafuocf92.07.0-18.0 mg/dLCreatinine0.770.55-1.02 mg/dLEstimated GFR ( Yazmin>60>=60 mL/min/1.73m 2Estimated GFR (Non- Virgen>60>=60 mL/min/1.73m 2BUN Creatinine Ratio20.7Mzgzibn3.78.5-10.1 mg/dLPerforming Lab:see noteML - [facility] LBTroponin I High Sensitivity Reviewed date:09/19/2025 12:36:30 PM Interpretation: Performing Lab: Notes/Report: [facility] ,Troponin I High Sensitivity4.54.0-51.3 pg/mL CUT-OFF POINTS HAVE BEEN ESTABLISHED BASED ON THE FOURTH 99TH PERCENTILE = 51.4 PG/ML HAS BEEN CONFIRMED THE DECISION THRESHOLD FOR CA USED IN ISOLATION BUT SHOULD BE INTERPRETED IN CONJUNCTION REFERENCE LIMIT (URL) OF TROPONIN, DEFINED THE 99TH NOTE: HIGH-SENSITIVITY TROPONIN ASSAY IS NOT INTENDED TO BE UNIVERSAL DEFINITION OF MYOCARDIAL INFARCTION. THE UPPER DIAGNOSIS. PERCENTILE OF cTnI DISTRIBUTION IN A REFERENCE POPULATION, WITH OTHER DIAGNOSTIC AND CLINICAL INFORMATION. Performing Lab:see noteML - [facility] LBECG 12 lead Reviewed date:09/19/2025 12:36:30 PM Interpretation: Performing Lab: Notes/Report: Source Facility: [facility]-[address] [place] [address] [place] [address] Electrocardiograph Report Signed Patient: EBONY CARPENTER MR#: [id number] : 1960 Acct:[id number] Age/Sex: 65 / F ADM Date: 09/19/25 Loc: ER Attending Dr: Ordering Physician: Lisandro Sanchez Date of Service: 09/19/25 Procedure(s): ECG 12 lead Accession Number(s): [id number] cc: [facility] Test Date: 2025-09-19 Pat Name: EBONY CARPENTER Department: Room: - 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 Signed By: 09/19/25 0825 DD/ 0542 TD/TT: Ballet Teacher:ECG 12 lead Reviewed date:09/20/2025 08:32:04 AM Interpretation: Performing Lab: Notes/Report: Source Facility: [place] [address] Electrocardiograph Report Signed Patient: EBONY CARPENTER MR#: [id number] : 1960 Acct:[id number] Age/Sex: 65 / F ADM Date: 09/19/25 Loc: MS - Attending Dr: Low Templeton M.D. Ordering Physician: Low Templeton M.D. 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 Measurements Intervals Saxe Rate: 50 P: 34 NJ: 173 QRS: 49 QRSD: 104 T: 42 QT: 395 QTc: 362 Interpretive Statements SINUS BRADYCARDIA MINIMAL ST DEPRESSION [0.025+ mV ST DEPRESSION] Borderline ECG Compared to ECG 09/19/2025 13:15:58 No significant changes Electronically Signed On 09-20-2025 6:39:08 EDT by JESSIE ARNETT M.D. Dictated By: JESSIE ARNETT Signed By: 09/20/25 0639 DD/ 0516 TD/TT: Ballet Teacher:ECG 12 lead Reviewed date:09/20/2025 08:32:04 AM Interpretation: Performing Lab: Notes/Report: Source Facility: [place] [address] Electrocardiograph Report Signed Patient: EBONY CARPENTER MR#: [id number] : 1960 Acct:[id number] Age/Sex: 65 / F ADM Date: 09/19/25 Loc: MS - Attending Dr: Low Templeton M.D. Ordering Physician: Low Templeton M.D. 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 Signed By: 09/19/25 1841 DD/ 1315 TD/TT: Ballet Teacher:MAGNESIUM Reviewed date:09/19/2025 12:39:26 PM Interpretation: Performing Lab: Notes/Report: Comment Add to an already drawn sample [facility] ,Magnesium2.21.8-2.4 mg/dLPerforming Lab:see noteML - [facility] LB LIPID PROFILE Reviewed date:08/05/2025 01:05:55 PM Interpretation: Performing Lab: Notes/Report: [facility] ,Btcycgjkzkaum330<=150 mg/sOHxqqwkhvjvm000<=200 mg/dLHDL Aceltdnfrvu7855-88 mg/dL <40 mg/dl - HIGH CARDIOVASCULAR RISK > or =60 mg/dl - LOW CARDIOVASCULAR RISK LDL Cholesterol Drziunklio49.0 <100 mg/dl OPTIMAL 130-159 mg/dl BORDERLINE HIGH 100-129 mg/dl NEAR OR ABOVE OPTIMAL >190 mg/dl VERY HIGH 160-189 mg/dl HIGH VLDL ZPQLXAOTQLJ53.8Chol HDL Ratio3.8 7.1 - 11.0 MODERATE RISK >11.0 HIGH RISK 3.3 - 4.4 LOW RISK 4.4 - 7.1 AVERAGE RISK Performing Lab:see noteML - [facility] LBINSULIN Reviewed date:08/05/2025 01:05:55 PM Interpretation: Performing Lab: Notes/Report: [facility] ,Rjsxkkv26.82.6-24.9 uIU/mL Meatcutter: Hubert Logan PhD, Phone: [phone] Performed at: - [facility] [id number] Performing Lab:see note - [facility] LBGLYCOHEMOGLOBIN A1C Reviewed date:08/05/2025 01:05:55 PM Interpretation: Performing Lab: Notes/Report: [facility] ,Glycohemoglobin A1C5.34.5-6.2 % ADA THERAPEUTIC TARGET < 7.0 ACTION SUGGESTED > 7.0 ADA RECOMMENDED LIMIT 4.0 - 6.0 Estimated Average Sutkodw753Elmhlsskcv Lab:see note - [facility] LB FREE T3 Reviewed date:08/05/2025 01:05:55 PM Interpretation: Performing Lab: Notes/Report: [facility] ,Free T32.662.18-3.98 pg/mLPerforming Lab:see note - [facility] LB XR acute abdomen series Reviewed date:04/19/2025 06:07:26 PM Interpretation: Performing Lab: Notes/Report: Source Facility: [place] [address] XRay Report Signed Patient: EBONY CARPENTER MR#: [id number] : 1960 Acct:[id number] Age/Sex: 65 / F ADM Date: 04/19/25 Loc: INF Attending Dr: Nola Valencia M.D. Ordering Physician: Nola Valencia M.D. Date of Service: 04/19/25 Procedure(s): XR acute abdomen series Accession Number(s): [id number] cc: Nola Valencia M.D. [place] [address] Patient Name: EBONY CARPENTER MRN: [id number] date: 1960 Sex: F Assigned Patient Location: INF Current Patient Location: INF Accession/Order Number: [id number] Exam Date: 04/19/2025 11:31 Report Date: 04/19/2025 [...] Miles M.D. 04/19/2025 11:35 AM Dictation Location: [place] [address] Electronically authenticated by: [id number] Y Date: 04/19/2025 11:35 Dictated By: Sona Miles M.D. Signed By: 04/19/25 1137 DD/ 1135 TD/TT: Ballet Teacher:Urine Culture - [facility] Reviewed date:04/23/2025 09:24:34 PM Interpretation: Performing Lab: Notes/Report: [facility] ,Urine Culture - [facility]MCSee Below For Report Urine [facility] - [facility] Antibiotic Interpretation MIL Status O:KLEBVA Organism: 1.1 Urine Culture - [facility] Testing performed at [facility] Count Isolated Urine Culture - [id number] [place] [address] Urine Culture - [facility] Antibiotic Interpretation MIL Status O:KLEBVA Organism: 1.1 Urine Culture - [facility] Testing performed at [facility] Count Isolated Urine Culture - [facility]MCSee Below For Report Urine Culture - [facility] Antibiotic Interpretation MIL Status O:KLEBVA Organism: 1.1 Urine Culture - [facility] Testing performed at [facility] Count Isolated Urine Culture - [facility]MCSee Below For Report Urine Culture - [facility] Antibiotic Interpretation MIL Status O:KLEBVA Organism: 1.1 Urine Culture - [facility] Testing performed at [facility] Count Isolated Urine Culture - [facility]>100,000 Urine Culture - [facility] Antibiotic Interpretation MIL Status O:KLEBVA Organism: 1.1 Urine Culture - [facility] Testing performed at [facility] Count Isolated Urine Culture - [facility]MCSee Below For Report Urine Culture - [facility] Antibiotic Interpretation MIL Status O:KLEBVA Organism: 1.1 Urine Culture - [facility] Testing performed at [facility] Count Isolated Urine Culture - FRMCAmikacin S F Urine Culture - [facility] Antibiotic Interpretation MIL Status O:KLEBVA Organism: 1.1 Urine Culture - [facility] Testing performed at [facility] Count Isolated Urine Culture - FRMCAmoxicillin/Clavulanate S F Urine Culture - [facility] Antibiotic Interpretation MIL Status O:KLEBVA Organism: 1.1 Urine Culture - [facility] Testing performed at [facility] Count Isolated Urine Culture - FRMCAztreonam S F Urine Culture - [facility] Antibiotic Interpretation MIL Status O:KLEBVA Organism: 1.1 Urine Culture - [facility] Testing performed at [facility] Count Isolated Urine Culture - FRMCCeftazidime S F Urine Culture - [facility] Antibiotic Interpretation MIL Status O:KLEBVA Organism: 1.1 Urine Culture - [facility] Testing performed at [facility] Count Isolated Urine Culture - FRMCCiprofloxacin S F Urine Culture - [facility] Antibiotic Interpretation MIL Status O:KLEBVA Organism: 1.1 Urine Culture - [facility] Testing performed at [facility] Count Isolated Urine Culture - FRMCErtapenem S F Urine Culture - [facility] Antibiotic Interpretation MIL Status O:KLEBVA Organism: 1.1 Urine Culture - [facility] Testing performed at [facility] Count Isolated Urine Culture - FRMCGentamicin S F Urine Culture - [facility] Antibiotic Interpretation MIL Status O:KLEBVA Organism: 1.1 Urine Culture - [facility] Testing performed at [facility] Count Isolated Urine Culture - FRMCLevofloxacin S F Urine Culture - [facility] Antibiotic Interpretation MIL Status O:KLEBVA Organism: 1.1 Urine Culture - [facility] Testing performed at [facility] Count Isolated Urine Culture - FRMCMeropenem S F Urine Culture - [facility] Antibiotic Interpretation MIL Status O:KLEBVA Organism: 1.1 Urine Culture - [facility] Testing performed at [facility] Count Isolated Urine Culture - FRMCNitrofurantoin S F Urine Culture - [facility] Antibiotic Interpretation MIL Status O:KLEBVA Organism: 1.1 Urine Culture - [facility] Testing performed at [facility] Count Isolated Urine Culture - FRMCTetracycline S F Urine Culture - [facility] Antibiotic Interpretation MIL Status O:KLEBVA Organism: 1.1 Urine Culture - [facility] Testing performed at [facility] Count Isolated Urine Culture - FRMCTigecycline S F Urine Culture - [facility] Antibiotic Interpretation MIL Status O:KLEBVA Organism: 1.1 Urine Culture - [facility] Testing performed at [facility] Count Isolated Urine Culture - FRMCTobramycin S F Urine Culture - FR Antibiotic Interpretation MIL Status O:KLEBVA Organism: 1.1 Urine Culture - [facility] Testing performed at [facility] Count Isolated Urine Culture - FRMCAmpicillin/Sulbactam S F Urine Culture - FR Antibiotic Interpretation MIL Status O:KLEBVA Organism: 1.1 Urine Culture - [facility] Testing performed at [facility] Count Isolated Urine Culture - FRMCCefazolin S F Urine Culture - [facility] Antibiotic Interpretation MIL Status O:KLEBVA Organism: 1.1 Urine Culture - [facility] Testing performed at [facility] Count Isolated Urine Culture - FRMCCefepime S F Urine Culture - FR Antibiotic Interpretation MIL Status O:KLEBVA Organism: 1.1 Urine Culture - [facility] Testing performed at [facility] Count Isolated Urine Culture - FRMCCeftriaxone S F Urine Culture - [facility] Antibiotic Interpretation MIL Status O:KLEBVA Organism: 1.1 Urine Culture - [facility] Testing performed at [facility] Count Isolated Urine Culture - FRMCCefuroxime S F Urine Culture - [facility] Antibiotic Interpretation MIL Status O:KLEBVA Organism: 1.1 Urine Culture - [facility] Testing performed at [facility] Count Isolated Urine Culture - FRMCPiperacillin/Tazobactam S F Urine Culture - [facility] Antibiotic Interpretation MIL Status O:KLEBVA Organism: 1.1 Urine Culture - [facility] Testing performed at [facility] Count Isolated Urine Culture - [facility]Sulfa S F Urine Culture - [facility] Antibiotic Interpretation MIL Status O:KLEBVA Organism: 1.1 Urine Culture - FR Testing performed at [facility] Count Isolated Performing Lab:see note SEE REPORT - Director Of Billing Id information not found for OBX-specific barber shop manager legend ML - [facility] LB Prothrombin Time INR Reviewed date:03/14/2025 07:27:36 PM Interpretation: Performing Lab: Notes/Report: [facility] ,Prothrombin Time11.19.0-11.6 secINR1.05 2.0-3.0 CONDITIONS NOT LISTED BELOW 2.5-3.5 RECURRENT THROMBOSIS DESIRED INR: 2.5-3.5 FOR PROSTHETIC HEART VALVE REPLACEMENT Performing Lab:see noteML - [facility] LBPTT Reviewed date:03/14/2025 07:27:36 PM Interpretation: Performing Lab: Notes/Report: [facility] ,Partial Thromboplastin Time26.522.3-36.2 secPerforming Lab:see noteML - [facility] LBPROF 14(COMP METB) Reviewed date:03/14/2025 07:27:36 PM Interpretation: Performing Lab: Notes/Report: [facility] ,Losixz148016-250 mmol/LPotassium3.63.5-5.1 mmol/ZIotggtsq79554-697 mmol/LCarbon Popctcv98.621.0-32.0 mmol/LAnion Gap14.6Baixmgb12929-723 mg/dLBlood Urea Nitrogen9.07.0-18.0 mg/dLCreatinine1.000.55-1.02 mg/dLEstimated GFR ( Yazmin>60>=60 mL/min/1.73m 2Estimated GFR (Non- Ame56>=60 mL/min/1.73m 2 BUN Creatinine Ratio9.7Xbhqpsi5.58.5-10.1 mg/dLBilirubin Total0.60.2-1.0 mg/dL Aspartate Amino Jzqaymjrciw6262-96 U/LAlanine Ymyumqmegifoibjg0829-71 U/L Alkaline Mqxjgmqdwsr67165-841 U/LTotal Protein7.26.4-8.2 g/dLAlbumin Level3.6 3.4-5.0 g/dLGlobulin3.6Albumin Globulin Ratio1.0Performing Lab:see noteML - [facility] LBMM tomosynthesis screening BI Reviewed date:03/06/2025 05:54:00 PM Interpretation: Performing Lab: Notes/Report: Source Facility: [facility]-[address] [place] [address] [place] [address] Mammography Report Signed Patient: EBONY CARPENTER MR#: [id number] : 1960 Acct:[id number] Age/Sex: 64 / F ADM Date: 03/06/25 Loc: MAMMO Attending Dr: Nola Valencia M.D. Ordering Physician: Nola Valencia M.D. Results: Date of Service: 03/06/25 Follow Up: Procedure(s): MM tomosynthesis screening BI Accession Number(s): [id number] cc: Nola Valencia M.D. Patient Name: EBONY CARPENTER MR#: [id number] : 1960 Exam Date: 03/06/2025 Ordering Doctor: [...] bone cancer at age 59. LOCATION: [facility] BREAST COMPOSITION: There are scattered areas of [...] M.D. Signed By: 03/06/251616 DD/ 15 TD/TT: Ballet Teacher:[place] (Eskalith(R)), Serum Reviewed date:02/20/2025 04:42:41 PM Interpretation: Performing Lab: Notes/Report: [facility] ,[place] (Eskalith(R)), Serum1.00.5-1.2 mmol/L use; concentrations of up to 1.2 mmol/L may be necessary <0.1 indicates None Detected Meatcutter: Hubert Logan PhD, Phone: [phone] Performed at: [facility] during acute treatment. Detection Limit = 0.[address] [place] [id number] A concentration of 0.5-0.8 mmol/L is advised for long-term Performing Lab:see note - [facility] LBVITAMIN D 25 [place] Reviewed date:02/10/2025 11:54:46 AM Interpretation: Performing Lab: Notes/Report: [facility] ,Vitamin D24.9 30-100 ng/mL Vit D sufficient >100 ng/mL Potential Toxicity <20 ng/mL Vit D deficient 20-<30 ng/mL Vit D insufficient Performing Lab:see noteML - [facility] LBTSH Reviewed date:02/10/2025 11:54:46 AM Interpretation: Performing Lab: Notes/Report: [facility] ,Thyroid Stimulating Hormone2.2530.358-3.740 uIU/mLPerforming Lab:see noteML - [facility] LBT4 Reviewed date:02/10/2025 11:54:46 AM Interpretation: Performing Lab: Notes/Report: [facility] ,T4 Thyroxine7.304.80-13.90 ug/dLPerforming Lab:see noteML - [facility] LBPROF 14(COMP METB) Reviewed date:02/10/2025 11:54:46 AM Interpretation: Performing Lab: Notes/Report: [facility] ,Jbtejr680323-297 mmol/LPotassium4.23.5-5.1 mmol/AKxzkjntu48677-431 mmol/LCarbon Moefqtj03.321.0-32.0 mmol/LAnion Gap12.3Nlzkrzk51446-576 mg/dLBlood Urea Dwzwcjbe13.07.0-18.0 mg/dLCreatinine1.090.55-1.02 mg/dLEstimated GFR ( Yazmin>60>=60 mL/min/1.73m 2Estimated GFR (Non- Ame50>=60 mL/min/1.73m 2 BUN Creatinine Ratio24.6Knwsvpp2.88.5-10.1 mg/dLBilirubin Total0.30.2-1.0 mg/dL Aspartate Amino Wvnhmximiym1221-87 U/LAlanine Scmxbmruciddmzct4053-15 U/L Alkaline Wkuglgiyfcq68555-401 U/LTotal Protein7.66.4-8.2 g/dLAlbumin Level3.7 3.4-5.0 g/dLGlobulin3.9Albumin Globulin Ratio0.9Performing Lab:see noteML - [facility] LBLIPID PROFILE Reviewed date:02/10/2025 11:54:46 AM Interpretation: Performing Lab: Notes/Report: [facility] ,Kbsufgeoezuae573<=150 mg/qZXowmjkvpyjf856<=200 mg/dLHDL Fpptnynyknk1118-37 mg/dL > or =60 mg/dl - LOW CARDIOVASCULAR RISK <40 mg/dl - HIGH CARDIOVASCULAR RISK LDL Cholesterol Amhjlpoxpr19.0 130-159 mg/dl BORDERLINE HIGH <100 mg/dl OPTIMAL 160-189 mg/dl HIGH >190 mg/dl VERY HIGH 100-129 mg/dl NEAR OR ABOVE OPTIMAL VLDL GAQVMUKDENJ22.8Chol HDL Ratio4.1 7.1 - 11.0 MODERATE RISK 3.3 - 4.4 LOW RISK >11.0 HIGH RISK 4.4 - 7.1 AVERAGE RISK Performing Lab:see noteML - [facility] LBGLYCOHEMOGLOBIN A1C Reviewed date:02/10/2025 11:54:46 AM Interpretation: Performing Lab: Notes/Report: [facility] ,Glycohemoglobin A1C5.64.5-6.2 % > 7.0 ACTION SUGGESTED ADA RECOMMENDED LIMIT 4.0 - 6.0 ADA THERAPEUTIC TARGET < 7.0 Estimated Average Vvmobva410Swnetiutde Lab:see noteML - [facility] LB FREE T3 Reviewed date:02/10/2025 11:54:46 AM Interpretation: Performing Lab: Notes/Report: [facility] ,Kevin T32.452.18-3.98 pg/mLPerforming Lab:see noteML - [facility] LB CBC AUTO DIFF Reviewed date:02/10/2025 11:54:45 AM Interpretation: Performing Lab: Notes/Report: [facility] ,White Blood Count14.34.0-11.0 10 3/uLRed Blood Count5.374.20-5.40 10 6/uL Fuwwcxitos94.612.0-16.0 g/hPPrehjvrixv87.936.0-48.0 %Mean Corpuscular Mabrhq40.6 81.0-99.0 fLMean Corpuscular Ymhojmyogg66.226.7-34.0 pgMean Corpuscular HGB Conc 32.529.9-35.2 g/dLRed Cell Distribution Width14.711.0-15.0 %Platelet Cdege045 150-450 10 3/uLMean Platelet Volume8.39.5-13.5 fLNeutrophils Percent Auto68.9 43.0-75.0 %Lymphocytes Percent Auto21.820.5-60.0 %Monocytes Percent Auto6.81.7- 12.0 %Eosinophils Percent Auto0.40.9-7.0 %Basophils Percent Auto0.80.2-2.0 % Immature Granulocytes Pct Auto1.30.0-0.5 %Neutrophils Absolute Auto9.81.4-6.5 10 3/uLLymphocytes Absolute Auto3.11.2-3.8 10 3/uLMonocytes Absolute Auto1.00.3-0.8 10 3/uLEosinophils Absolute Auto0.10.0-0.7 10 3/uLBasophils Absolute Auto0.10.0- 0.1 10 3/uLImmature Granulocytes Abs Auto0.190.00-0.03 10 3/uLPerforming Lab:see noteML - [facility] LBLithium (Eskalith(R)), Serum Reviewed date:10/11/2024 07:54:38 AM Interpretation: Performing Lab: Notes/Report: [facility] ,[place] (Eskalith(R)), Serum0.60.5-1.2 mmol/L Meatcutter: Hubert Logan PhD, Phone: [phone] <0.1 indicates None Detected use; concentrations of up to 1.2 mmol/L may be necessary [address] [place] [address] [phone] Detection Limit = 0.1 A concentration of 0.5-0.8 mmol/L is advised for long-term [facility]formed at[facility] Performing Lab:see noteLC - [facility] LBCREATININE Reviewed date:10/10/2024 08:30:44 PM Interpretation: Performing Lab: Notes/Report: [facility] ,Creatinine0.940.55-1.02 mg/dLEstimated GFR ( Yazmin>60>=60 mL/min/1.73m 2Estimated GFR (Non- Ame60>=60 mL/min/1.73m 2Performing Lab:see noteML - [facility] LBBUN Reviewed date:10/10/2024 08:30:44 PM Interpretation: Performing Lab: Notes/Report: [facility] ,Blood Urea Qyoftcwy20.07.0-18.0 mg/dLPerforming Lab:see note - [facility] LBCOVID-19, Flu A+B IH Reviewed date:08/05/2025 01:05:55 PM Interpretation: Performing Lab: Notes/Report: COVIDnegFLU AnegFLU BnegControlpresentUA DIP NONAUTO WO MICRO (83376) - IN OFFICE Reviewed date:08/05/2025 01:05:55 PM Interpretation: Performing Lab: Notes/Report: COLORlight yellowCLARITYclearGLUCOSEnegBILIRUBINnegKETONEnegSPECIFIC GRAVITY 1.917YBHNJidbKG5BBJNXZJsysBMVAPCYOANCMstzYXHMYAIvdiKPESOGPDY ESTERASEnegPROF 14(COMP METB) Reviewed date:04/19/2025 06:07:26 PM Interpretation: Performing Lab: Notes/Report: [facility] ,Vsuodk666361-275 mmol/LPotassium4.43.5-5.1 mmol/DNlxgucex85609-057 mmol/LCarbon Tuxakcy06.121.0-32.0 mmol/LAnion Gap14.7Rmjgshf13152-020 mg/dLBlood Urea Zmcjtfao96.07.0-18.0 mg/dLCreatinine0.630.55-1.02 mg/dLEstimated GFR ( Yazmin>60>=60 mL/min/1.73m 2Estimated GFR (Non- Virgen>60>=60 mL/min/1.73m 2BUN Creatinine Ratio19.5Xzkoyab2.78.5-10.1 mg/dLBilirubin Total0.30.2-1.0 mg/dL Aspartate Amino Ophotfdllmx6212-94 U/LAlanine Vrcguiriptnhdixi7139-22 U/L Alkaline Tpxnzzhrjdb43537-585 U/LTotal Protein6.36.4-8.2 g/dLAlbumin Level3.1 3.4-5.0 g/dLGlobulin3.2Albumin Globulin Ratio1.0Performing Lab:see noteML - [facility] LBCREATININE Reviewed date:02/20/2025 04:42:41 PM Interpretation: Performing Lab: Notes/Report: [facility] ,Creatinine0.890.55-1.02 mg/dLEstimated GFR ( Yazmin>60>=60 mL/min/1.73m 2Estimated GFR (Non- Virgen>60>=60 mL/min/1.73m 2Performing Lab:see noteML - [facility] LBCBC AUTO DIFF Reviewed date:02/20/2025 04:42:41 PM Interpretation: Performing Lab: Notes/Report: [facility] ,White Blood Count14.84.0-11.0 10 3/uLRed Blood Count5.334.20-5.40 10 6/uL Waszmdcwcv66.712.0-16.0 g/zZXwvtirrgwp11.936.0-48.0 %Mean Corpuscular Wmupdb10.1 81.0-99.0 fLMean Corpuscular Ymcuyyfnhi50.626.7-34.0 pgMean Corpuscular HGB Conc 32.029.9-35.2 g/dLRed Cell Distribution Width14.711.0-15.0 %Platelet Wugyk149 150-450 10 3/uLMean Platelet Volume8.59.5-13.5 fLNeutrophils Percent Auto69.7 43.0-75.0 %Lymphocytes Percent Auto21.320.5-60.0 %Monocytes Percent Auto6.61.7- 12.0 %Eosinophils Percent Auto0.30.9-7.0 %Basophils Percent Auto1.20.2-2.0 % Immature Granulocytes Pct Auto0.90.0-0.5 %Neutrophils Absolute Auto10.31.4-6.5 10 3/uLLymphocytes Absolute Auto3.21.2-3.8 10 3/uLMonocytes Absolute Auto1.00.3- 0.8 10 3/uLEosinophils Absolute Auto0.00.0-0.7 10 3/uLBasophils Absolute Auto0.2 0.0-0.1 10 3/uLImmature Granulocytes Abs Auto0.140.00-0.03 10 3/uLPerforming Lab:see noteML - [facility] LBBUN Reviewed date:02/20/2025 04:42:41 PM Interpretation: Performing Lab: Notes/Report: [facility] ,Blood Urea Ljubwcwa52.07.0-18.0 mg/dLPerforming Lab:see noteML - [facility] LBLIPASE Reviewed date:03/14/2025 07:27:36 PM Interpretation: Performing Lab: Notes/Report: [facility] ,Uczbsq26.016.0-77.0 U/LPerforming Lab:see noteML - [facility] LB AMYLASE Reviewed date:03/14/2025 07:27:36 PM Interpretation: Performing Lab: Notes/Report: [facility] ,Bcswxhu9927-270 U/LPerforming Lab:see noteML - [facility] LB Reason For Referral Reason KURT - food getting stuck please Diagnosis 1 Esophageal stricture (K22.2) Referral Organization [facility] Referring Provider First Name Curtis Referring Provider Last Name James Referring Provider Speciality [facility] icine Referred Provider Compa Dickens Referred Provider Specialty Gastroentero logy Referral Priority Routine Medications Medication SIG (Take, Route, Frequency, Duration) Notes Start Date End Date Status Lisinopril 10 MG 1 tablet Orally Once a day; Dur ation: 30 days 09/26/2025tivePromethazine HCl 25 MG1 tablet as needed Orally q6h; Duration: 5 04/18/2025tiveLactulose 20 GM/30ML15 - 30 mL as needed Orally Once a day - up to bid; Duration: 30 09/02/2023ctivetiZANidine HCl 4 MG2 tablet Orally at bedtime as needed; Duration: 30 08/16/2023ctiveHyoscyamine Sulfate 0.125 MG1-2 tabs SL SL every 4 hrs PRN abd pain03/13/2025tiveSpironolactone 25 MG1 tablet Orally Once a dayActivebusPIRone HCl 10 MG2 Orally tidActiveProtonix 40 MG1 tablet Orally Once a day; Duration: 30 08/02/2025tiveAtorvastatin Calcium 40 MG1 tablet Orally Once a dayActiveMyrbetriq 25 MG1 tablet Orally Once a day; Duration: 30 05/07/2025tiveMirtazapine 30 MG1 tablet at bedtime Orally Once a dayActiveWellbutrin XL 150 MG1 tablet in the morning Orally Once a dayActiveLithium Carbonate 300 MGas directed Orally 1am and 2 hsActiveVraylar 6 MGTAKE 1 CAPSULE BY MOUTH ONCE DAILY at bedtime Oral; Duration: 30 DaysActive [place] Carbonate 150 MGin the a.m Orally dailyActiveTolterodine Tartrate 2 MG1 tablet Orally Twice a day; Duration: 05/07/2025tiveamLODIPine Besylate 5 MG1 tablet Orally Once a day09/26/2025tiveOndansetron 4 MG1 tablet on the tongue and allow to dissolve Orally Q 6 hours PRN; Duration: 30 daysActive Mysoline 50 MG2 tablets Orally Once a day; Duration: 30 08/02/2025tive Immunizations Vaccine Route Administration Date Status Comme nts Flu, Flucelvax (9499-8619) (83420) 6 mos +, single-dose syringe IM Intramuscular 09/24/2023 Administered Pneumococcal (Pneumovax 23)Nmtiaxm0408/16/20178574HmvnggrejbqjPJOZ-FRD-8 (COVID 19 Marguerite 0.5mL) AureUnknown3966BriafmlgydveQRFJ-BPC-6 (COVID 19 Moderna - Booster 0.25mL)Oyonlyp09/05/2021Administered Social History Tobacco Use: Social History Observation Description Date Details (start date - stop date) Former Smoker 11/22/1974 - 11/22/2019 Tobacco Use/Smoking Question Answer Notes Patient is a former smoker When did you start smoking?11/22/1974When did you stop smoking?11/22/2019Alcohol Screen (Audit-C) Question Answer Notes Did you have a drink containing alcohol in the p ast year? No Kjuiog0XmmedjoklnffgeDdazmwsuJBMRH-C (Standard) Question Answer Notes Did you have a drink containing alcohol in the p ast year? No Arvcpd2OqgdwvcybswceaApomzwdu Problems Problem Type SNOMED Code ICD Code Onset Dates Problem Status W/U Status Risk Notes Problem Essential hypertension (26090635 ) Essential (primary) hypertension (I10) ActiveconfirmedProblemMixed hyperlipidemia (094556598)Mixed hyperlipidemia (E78.2)ActiveconfirmedProblemRectal prolapse (94746110)Rectal prolapse (K62.3) ActiveconfirmedProblemDyspnea (359446505)Other forms of dyspnea (R06.09)Active confirmedProblemLocalized edema (3102930)Localized edema (R60.0)Activeconfirmed ProblemTremor (57219992)Tremor (R25.1)ActiveconfirmedProblemRestless legs syndrome (11347322)Restless leg syndrome (G25.81)ActiveconfirmedProblem Obstructive sleep apnea syndrome (46985489)ERIKA (obstructive sleep apnea) (G47.33)ActiveconfirmedProblemGastroesophageal reflux disease (784426643)GERD without esophagitis (K21.9)ActiveconfirmedProblemBladder incontinence (112082778)Bladder incontinence (R32)ActiveconfirmedProblemDiarrhea (80911217) Diarrhea (R19.7)ActiveconfirmedProblemPure hyperglyceridemia (427358236)High triglycerides (E78.1)ActiveconfirmedProblemDepressed bipolar I disorder (86979622)Bipolar depression (F31.30)ActiveconfirmedProblemMemory loss (92580913)Memory loss (R41.3)ActiveconfirmedProblemLumbar radicular pain (7806940691)Lumbar radicular pain (M54.16)ActiveconfirmedProblemEsophageal stricture (51202596)Esophageal stricture (K22.2)ActiveconfirmedProblemHernia of anterior abdominal wall (disorder) (417504228)Abdominal wall hernia (K43.9) ActiveconfirmedProblemGoiter (9815970)Enlarged thyroid (E04.9)Activeconfirmed ProblemOpioid abuse (5890559)Narcotic abuse (F11.10)ActiveconfirmedProblemSinus congestion (56980207)Sinus congestion (R09.81)ActiveconfirmedProblemSuicidal ideation (1300642)Suicidal ideation (R45.851)ActiveconfirmedProblemAcute bronchiolitis (4397508)Acute bronchiolitis (J21.9)ActiveconfirmedProblem Impingement syndrome of shoulder region (224073003)Shoulder impingement syndrome, right (M75.41)ActiveconfirmedProblemLeukocytosis (037383421)Elevated WBCs (D72.829)ActiveconfirmedProblemPure hypercholesterolemia (269882001)Pure hypercholesterolemia (E78.00)ActiveconfirmedProblemHigh cholesterol (32171895) High cholesterol (E78.00)ActiveconfirmedProblemPulmonary hypertension (44192449) Pulmonary hypertension (I27.20)Activeconfirmed Vital Signs Heart Rate 66 /min 09/26/2025 Hfddnuyj93 %09/26/2025lood pressure wbfzuykkd74 mm Hg09/26/20254673Mkukss25 in 09/26/2025lood pressure mm Hg09/26/20258451Kbosie156.8 lbs111/26/2024MI 30.96 kg/m209/26/2025 Procedures Procedure Date Ordered Date Performed Result Body Sit e EKG w Interp & Report - performed 09/26/2025 N/AHolter Monitor - 3 days up to 14 days09/26/2025N/A*[facility]/A Encounters Encounter Location Date Provider Diagnosis [facility] [address] [place] [address] 05/07/2025 Curtis Hoy Urinary frequency R3 5.0 and Bipolar depression F31.30 [facility] [address] [place] [address] 02/27/2025 Curtis Hoy Encounter for Medica re annual wellness exam Z00.00 [facility] [address] [place] [address] 04/18/2025 Curtis Hoy Gastroenteritis K52. 9 [facility] [address] [place] [address] 08/02/2025 Curtis Hoy Sinus congestion R09 .81 ; Diarrhea R19.7 ; Acute bronchiolitis J21.9 ; Tremor R25.1 ; GERD without esophagitis K21.9 and Esophageal stricture K22.2 [facility] [address] [place] [address] 09/26/2025 Curtis Hoy Pulmonary hypertensi on I27.20 and Chest pain R07.9 [facility] [address] [place] [address] 02/05/2025 Curtis Hoy Pulmonary hypertensi on I27.20 ; Restless leg syndrome G25.81 ; ERIKA (obstructive sleep apnea) G47.33 ; Pure hypercholesterolemia E78.00 ; Mixed hyperlipidemia E78.2 and Essential (primary) hypertension I10 [facility] [address] [place] [address] 08/05/2025 Curtis Hoy [facility] [place] [address] 09/03/2025Doug [facility]oyAcute bronchiolitis J21.9[facility] [place] [address]/20/2025[facility] [place] [address]/27/2025Doug HoyAcute bronchiolitis J21.9[facility] [facility] [place] [address]/Doug [facility] [facility] [place] [address]/Doug [facility] [facility] [place] [address]/11/2024Doug [facility] [facility] [place] [address]/06/2025Doug [facility] [facility] [place] [address]/ Curtis [facility] [facility] [place] [address]/10/2025Doug [facility] [facility] [place] [address]/Doug [facility] [facility] [place] [address]/09/2025Doug [facility] [facility] [place] [address]/Doug [facility] [facility] [place] [address]/ Curtis HoyGastroenteritis K52.9 ; Elevated WBCs D72.829 ; Essential (primary) hypertension I10 and Nausea & vomiting R11.2[facility] [address] [facility] [place] [address]/Doug [facility] [facility] [place] [address]/Doug [facility] [facility] [place] [facility] [address]/ [facility] [facility] [place] [address]/Doug [facility] [facility] [place] [address]/07/2025Doug [facility]oyBV[facility] [facility] [place] [facility] [place] [address]/08/2025Doug HoyPure hypercholesterolemia E78.00[facility] [facility] [address]/Doug HoyElevated WBCs D72.829[facility] [address] [facility] [place] [address]/Doug HoyGastroenteritis K52.9 Assessments Encounter Date Diagnosis (ICD Code) Assessment Notes Treatment Notes Treatment Clinical Notes Section Notes 02/05/2025 Pulmonary hypertension (ICD-10 - I27.20) [facility] annual wellness [facility] (ICD-10 - Z00.00) 03/13/2025Gastroenteritis (ICD-10 - K52.9)Get plenty of rest. Stay hydrated by sucking on ice chips or taking small sips of water. You can also try drinking clear soda, clear broths or noncaffeinated sports drinks. Stop eating solid foods for a few hours to let your stomach settle. East back into eating by eating bland, uifk-xf-bzppkc foods like crackers, toast, gelatin, bananas, rice and chicken. Try to avoid foods/substances including dairy products, caffeine, alcohol, nicotine and fatty or highly seasoned foods. Medications such as i buprofen or tylenol can make your stomach more upset, so use sparingly if at all. Also avoid rhzf-tdp-ivjmccd anti-diarrheal medications because it can make it [...] East back into eating by eating bland, lvyr-ut-nyussm foods like crackers, toast, gelatin, bananas, rice and chicken. Try to avoid foods/substances including dairy products, caffeine, alcohol, nicotine and fatty or highly seasoned foods. Medications such as ibuprofen or tylenol can make your stomach more upset, so use sparingly if at all. Also avoid jhfw-rrt-amjzcyr anti-diarrheal medications because it can make it harder for your body to eliminate the virus.05/07/2025Urinary frequency (ICD-10 - R35.0)05/07/2025 Bipolar depression (ICD-10 - F31.30)lithium seems to be fcbnfvq0202/05/2025 Restless leg syndrome (ICD-10 - G25.81)08/02/2025Diarrhea (ICD-10 - R19.7) 08/02/2025Sinus congestion (ICD-10 - R09.81)09/26/2025hest pain (ICD-10 - R07.9)09/26/2025Pulmonary hypertension (ICD-10 - I27.20)01/29/2025Pure hypercholesterolemia (ICD-10 - E78.00)02/10/2025Elevated WBCs (ICD-10 - D72.829) 03/14/2025Gastroenteritis (ICD-10 - K52.9)03/14/2025Elevated WBCs (ICD-10 - D72.829)5Acute bronchiolitis (ICD-10 - J21.9)5Acute bronchiolitis (ICD-10 - J21.9)03/14/2025Essential (primary) hypertension (ICD-10 - I10)5Acute bronchiolitis (ICD-10 - J21.9)02/05/2025OSA (obstructive sleep apnea) (ICD-10 - G47.33)08/02/2025Tremor (ICD-10 - R25.1)02/05/2025Pure hypercholesterolemia (ICD-10 - E78.00)03/14/2025Nausea & vomiting (ICD-10 - R11.2)02/05/2025Mixed hyperlipidemia (ICD-10 - E78.2)08/02/2025GERD without esophagitis (ICD-10 - K21.9)02/05/2025Essential (primary) hypertension (ICD-10 - I10)08/02/2025Esophageal stricture (ICD-10 - K22.2) Plan Of Treatment [...] LEVEL (TOTAL) 02/05/2025 MAMM Mammograms CAD 09/02/2023 EKG w Interp & Report - performed 2024 Urinalysis Microscopic 04/18/2025 Insulin Level 08/02/2025 COMPREHENSIVE METABOLIC PROFILE WITH GFR 03/14/2025 CBC W/AUTO DIFF 03/14/2025 CBC W/AUTO DIFF 02/10/2025 STOOL OCCULT BLOOD 09/02/2023 CULTURE URINE 04/18/2025 LITHIUM 04/18/2025 XR ABD FLAT UP_PA CH 04/18/2025 XR LSPINE 2_3 VIEWS 09/24/2023 THYROID PANEL (T4/TSH/FREE T3) 3 THYROID PANEL (T4/TSH/FREE T3) 5 THYROID PANEL (T4/TSH/FREE T3) 5 Holter Monitor - 3 days up to 14 days MM screening mammo BI 02/05/2025 *CARDIO Stress Test - Lexiscan Nuclear 1 11/26/2024 CMP (COMP MET LOBO) w/eGFR CKD-EPI 2024 CMP (COMP MET LOBO) w/eGFR CKD-EPI 2024 CBC WITH DIFF 02/05/2025 CBC WITH DIFF 08/02/2025 Insurance Providers Payer Name Payer Address Payer Phone Subscriber Number Group Number Insured Name Patient Relationship to Insured Coverage Start Date Coverage End Date [place]IC[place] [address] [place] [address] [id number] ElizabethedwinMaddy - patient is the [id number] 2009ARP [facility] [address] [place] [id number], VictoriaSelf - patient is the insured Medications Administered Medication Instructions Date of Administration Dosage Notes Kenalog-40 py647Ofpwaxd-3761/06/202380 ci24Rfbytkmfl Wdtknwvroyao79/03/202360 il98Zswqynqsm Zwiqjnjttjhc46/06/202360 ne23Amxcsleeltyg Nimvcta50 mg60 Orphenadrine Wrxyeww17 mg60 Medical (General) History Medical History History ICD Code Pulmonary hypertension I27.20 Bipolar depression F31.30 Abdominal wall hernia K43.9 ERIKA (obstructive sleep apnea) G47.33 High cholesterol E78.00 Shoulder impingement syndrome, right M75 .41 Restless leg syndrome G25.81 Memory loss R41.3 Enlarged thyroid E04.9 Rectal prolapse K62.3 Narcotic abuse F11.10 Pure hypercholesterolemia E78.00 Suicidal ideation R45.851 Bladder incontinence R32 Surgical History Surgery Date(Month/Year) T A H and B S O Rotator cuff ndzwwf0390lgqblnfnrjrrb with kqrt3998Wklyn Necv5544KKQ8520SOV w/biopsy and /1/2025Hospitalization History Reason Date(Month/Year) see above mental health
--- OUTSIDE RECORDS SUMMARY | 2025-10-02 06:42 | XMS_ITS | Clinical Summary ---
Author Organization [facility] Address [address] [facility] [place] [address] Care Team Providers Care Assistant Case Manager Name Role Phone Unavailable Primary Care Provider Unavailabl e Social History Tobacco UseTypesPacks/DayYears UsedDateSmoking Tobacco: Never Assessed CommentsUnknownSex and Gender InformationValueDate RecordedSex Assigned at Not on fileLegal OqaScfvxm08/15/2023 7:12 PM EDTGender IdentityNot on fileSexual OrientationNot on file Last Filed Vital Signs Vital SignReadingTime TakenCommentsBlood Efcygebd236/6707 12:00 PM EDT Pulse--Temperature--Respiratory Rate--Oxygen Saturation--Inhaled Oxygen Concentration--Xutfpk28.6 kg (180 lb)06/16/2018 12:00 PM CIPMfzope615 cm (5' 3 ) 06/16/2018 12:00 PM EDTBody Mass Index31.8906/16/2018 12:00 PM EDT Plan of Treatment Not on file
--- NOTE | 2025-10-02 08:42 | PC.NURSE ---
Pt was scheduled for a Lexiscan test. Pt's BP was 72/48 manual cuff and her pulse was in the mid to low 40's. Pt is asymptomatic and this is the reason we are doning the test. Pt states it is always like this in the AM and then it goes up in the afternoon and she takes her BP medication. I talked with pt and she is going to hold her BP med the day before and the day of the test to help increase her BP so that we can do it. It is a absolute contraindication to do Lexiscan test if BP systolic is less then 90 and if pulse is less then 40. I explained this to pt and she states she understands. I contacted Dr. Ramirez nurse and let her know what the plan was and that we cancelled the test. Pt had a EKG and Holter placed today. At this time of writing note RN that was hooking pt to EKG and Holter called to state pt was having some dizziness and chest pain now so pt is being taken to the ER for evaluation. I contacted Dr. Ramirez's office again and made them aware of the patients symptoms and that she is being taken to the ER. Nurse states she will let Dr. Ramirez know this.
== END 2025-10-02 06:40 | disposition home or self-care (01) ==
LOC: NM 06:39
PROVIDERS: PCP Family Medicine; Visit Provider Family Medicine
DX: I27.20 Pulmonary hypertension, unspecified (principal); R07.9 Chest pain, unspecified
CPT/HCPCS: 78451; 78452; 93005; 93242; A9500

== ENCOUNTER 2025-10-02 08:50 | Emergency (ER) | payer MEDICARE, SELFPAY ==
[2025-10-02] VITALS (68 sets, daily range): BP systolic 92–152; BP diastolic 35–80; PULSE 44–91; TEMP 36.6; O2SAT 97–100; BMI 30.8
--- NOTE | 2025-10-02 08:58 | ECG_ITS ---
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 Measurements Intervals [place] Rate: 44 P: 36 ME: 166 QRS: 50 QRSD: 90 T: 41 QT: 424 QTc: 375 Interpretive Statements [address] changes abnormal ECG Compared to ECG 09/20/2025 05:16:42 No significant changes Electronically Signed On 10-02-2025 10:26:57 EST by JESSIE ARNETT M.D.
[2025-10-02 09:20] LABS: Hematocrit 43.6 % (36.0-48.0); Hemoglobin 13.8 g/dL (12.0-16.0); Immature Granulocytes Abs Auto 0.08 10^3/uL (0.00-0.03); Immature Granulocytes Pct Auto 0.7 % (0.0-0.5); Lymphocytes Absolute Auto 3.0 10^3/uL (1.2-3.8); Mean Corpuscular HGB Conc 31.7 g/dL (29.9-35.2); Mean Corpuscular Hemoglobin 27.1 pg (26.7-34.0); Mean Corpuscular Volume 85.5 fL (81.0-99.0); Platelet Count 386 10^3/uL (150-450); Red Blood Count 5.10 10^6/uL (4.20-5.40); White Blood Count 11.7 10^3/uL (4.0-11.0)
--- NOTE | 2025-10-02 09:26 | XR_ITS ---
The [address] [address] Patient Name: NAZARIO MEDLEY MRN: [id number] date: 1960 Sex: F Assigned Patient Location: [place] Current Patient Location: .MAIN Accession/Order Number: [id number] Exam Date: 10/02/2025 09:22 Report Date: 10/02/2025 09:54 At the request of: JO ANN MALDONADO DO Procedure: XR chest 1V PORTABLE AP ERECT CHEST 0924 hours CLINICAL HISTORY: Chest pain and tightness. Hypotension. COMPARISON: 06/04/2022 and 07/20/2022 CT There is shallow inspiration and elevation of the right hemidiaphragm. The heart is top normal in size. There is no vascular congestion. Basilar scarring and/or atelectasis is present, greater on the left. There is no sizable effusion or pneumothorax. The osseous structures are intact. End plate spurring is seen. XR/XR chest 1V IMPRESSION: SHALLOW INSPIRATION WITH BIBASILAR ATELECTASIS AND/OR SCARRING. NO OTHER ACUTE FINDINGS Impression dictated by: Sona Miles M.D. 10/02/2025 9:54 AM Dictation Location: [place] [address] Electronically authenticated by: [id number] Y Date: 10/02/2025 09:54
--- OUTSIDE RECORDS SUMMARY | 2025-10-02 09:36 | XMS_ITS | Clinical Summary ---
Author Organization [facility] Address [address] [place] [address] Care Team Providers Care First Aid Attendant Name Role Phone Thanh Ramirez MD Primary Care Provider [phone] Allergies No known active allergies Medications MedicationSigDispense [...] recent episode depressed 06/28/2024hronic schizophrenia with acute jrgxgcedgaes66/07/2024Nausea 06/28/2024Suicidal dbnvbgca05/07/2024bnormal barium mlbcbzu31 Bladder xckchtyhgcxw86ysphagia, xawfzgbgjcrxa17/24/2024 12/15/2023Esophagitis on psaote52HTN (hypertension)12/15/2023 12/15/2023Incisional zmpdip52MI 35.0-35.9,adult12/15/2023 12/15/2023Obstructive sleep apnea nyjeymwa64ectal prolapse estless legs smhnylzq26yspnea on birikikl56/07/2022Mixed uxcnhsyhzvhiid32/07/2022 Encounters DateTypeDepartmentCare QfkrRvzfidokbok77/11/2025 10:15 AM EDTOffice Visit [facility] [address] [place] [address] Rolo Rodgers MD Primary hypertension [...] file01/13/2024CommentsUnknownSex and Gender InformationValueDate RecordedSex Assigned at HojioTndyhm89/05/2025 4:19 PM EDT Legal IvjGtomsh35/29/2022 10:42 PM EDTGender NoxtzqbkWyhpyw51/05/2025 4:19 PM EDTSexual OrientationHeterosexual or Uwtlirza65/05/2025 4:19 PM EDT Last Filed Vital Signs Vital SignReadingTime TakenCommentsBlood Lqfjgsmu523/72007/02/2025 10:58 AM EDT Qtico2414/11/2025 10:58 AM EDTTemperature--Respiratory Rate--Oxygen Saturation 95%07/02/2025 10:58 AM EDTInhaled Oxygen Concentration--Hrmlgp43.8 kg (187 lb) 07/02/2025 10:58 AM KYHLomvbq834 cm (5' 3 )07/02/2025 10:58 AM EDTBody Mass Index33.13007/02/2025 10:58 AM EDT Plan of Treatment Health MaintenanceDue DateLast DoneCommentsMedicare Annual Wellness (AWV) 1960Depression Hlhrqnycc27/07/1971Adult Bujfwfs5903/28/1981Mammogram 1999Zoster Vaccines (1 of 2)2009Pneumococcal Vaccine: 50+ Years (2 of 2 - PCV)Fall Risk Vhbhliaby29/07/2024COVID-19 Vaccine (3 - season)/03/2021, 01/25/2021Influenza Vaccine (#1) [...] MemberRelationshipSpecialtyStart DateEnd Thanh Ramirez MD [address] [facility] [address] [address] [facility] - Xchvebt49/7/22
--- OUTSIDE RECORDS SUMMARY | 2025-10-02 09:36 | XMS_ITS | Clinical Summary ---
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 Name Role Phone Unavailable Primary Care Provider Unavailabl e Social History Tobacco UseTypesPacks/DayYears UsedDateSmoking Tobacco: Never Assessed CommentsUnknownSex and Gender InformationValueDate RecordedSex Assigned at Not on fileLegal UpoEbgrgr29/15/2023 7:12 PM EDTGender IdentityNot on fileSexual OrientationNot on file Last Filed Vital Signs Vital SignReadingTime TakenCommentsBlood Jtgrgqfa017/6707 12:00 PM EDT Pulse--Temperature--Respiratory Rate--Oxygen Saturation--Inhaled Oxygen Concentration--Vskblt29.6 kg (180 lb)06/16/2018 12:00 PM VKFVznwuy257 cm (5' 3 ) 06/16/2018 12:00 PM EDTBody Mass Index31.8906/16/2018 12:00 PM EDT Plan of Treatment Not on file
[2025-10-02 10:02] LABS: Anion Gap 15.1; Blood Urea Nitrogen 37.0 mg/dL (7.0-18.0); Calcium 9.3 mg/dL (8.5-10.1); Carbon Dioxide 22.8 mmol/L (21.0-32.0); Chloride 104 mmol/L (98-107); Estimated GFR (African America 52 (>=60 mL/min/1.73m^2); Estimated GFR (Non-African Ame 43 (>=60 mL/min/1.73m^2); Glucose 105 mg/dL (74-106); NT Pro B Type Natriuretic Pept 90.0 pg/mL (<=900.0); Potassium 4.9 mmol/L (3.5-5.1); Sodium 137 mmol/L (136-145)
[2025-10-02] MEDS: 0.9 % SODIUM CHLORIDE 1,000 ML 1000 ML IV (10:24)
--- NOTE | 2025-10-02 11:43 | ED.GENADUL1 ---
HPI HPI - General Adult General Chief complaint: Arrhythmia/Palpitations Stated complaint: CHEST PAIN HYPOTENSION Time Seen by Provider: 10/02/25 08:53 Source: patient Mode of arrival: NIKKO Limitations: no limitations History of Present Illness HPI narrative: Patient is a 65-year-old female presenting to the emergency department from her stress test for concerns of hypotension and bradycardia. Prior to the patient starting the stress test or receiving any medications, she was getting baseline vital signs. The staff noted that her blood pressure was 70/40 with a heart rate in the 40s. Patient was complaining of chest pain, dizziness, and generalized weakness. On arrival to our ED, the patient still complaining of the symptoms. She denies history of coronary artery disease or prior stents. She denies history of heart block. She has no nausea or vomiting. No abdominal pain, fevers, or chills. Related Data Home Medications ?Medication ?Instructions ?Recorded ?Confirmed bupropion HCl 300 mg 24 hr tablet, 300 mg PO DAILY 04/19/25 09/19/25 extended release ezetimibe 10 mg tablet 10 mg PO DAILY 04/19/25 09/19/25 lithium carbonate 150 mg capsule 150 mg PO DAILY 04/19/25 09/19/25 lithium carbonate 300 mg tablet 300 mg PO DAILY 04/19/25 09/19/25 olanzapine 5 mg tablet 5 mg PO .q4 PRN agitation 04/19/25 09/19/25 cariprazine 6 mg capsule (Vraylar) 6 mg PO .QHS 09/19/25 09/19/25 lithium carbonate 300 mg tablet 600 mg PO .qhs 09/19/25 09/19/25 pantoprazole 40 mg tablet,delayed 40 mg PO .QD 09/19/25 09/19/25 release spironolactone 25 mg tablet 25 mg PO DAILY PRN edema 09/19/25 09/19/25 Previous Rx's ?Medication ?Instructions ?Recorded amlodipine 5 mg tablet 5 mg PO QD #30 tabs 09/21/25 buspirone 10 mg tablet 10 mg PO TID #0 tabs 09/21/25 tizanidine 4 mg tablet 4 mg PO .QHS PRN muscle spasticity 09/21/25 #0 tabs Allergies Allergy/AdvReac Type Severity Reaction Status Date / Time No Known Drug Allergies Allergy Verified 10/02/25 09:04 Opioid HPI Opioid Management Most Recent Opioid Data: Last Pain Scale 3 09/21/25, 10:44 Last ORT Total Score 3 09/19/25, 11:44 Last ORT Risk Category Low Risk 09/19/25, 11:44 Review of Systems ROS Status of ROS 10 or more systems reviewed and unremarkable except as noted in history and below PFSH PFS Medical History (Updated 10/02/25 @ 11:44 by Lisandro Sanchez, ) Dilation of esophagus ?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 - Other specified disease of esophagus (ICD-10) Occasional tremors ?R25.1 - Tremor, unspecified (ICD-10) Bipolar 1 disorder ?F31.9 - Bipolar disorder, unspecified (ICD-10) Anxiety ?F41.9 - Anxiety disorder, unspecified (ICD-10) Depression ?F32.A - Depression, unspecified (ICD-10) GERD (gastroesophageal reflux disease) ?K21.9 - Gastro-esophageal reflux disease without esophagitis (ICD-10) Hypertension ?I10 - Essential (primary) hypertension (ICD-10) Surgical History (Updated 09/19/25 @ 13:23 by Andree Maddox RN) History of thyroidectomy ?Z98.890 - Other specified postprocedural states (ICD-10) ?Z90.89 - Acquired absence of other organs (ICD-10) History of cholecystectomy ?Z90.49 - Acquired absence of other specified parts of digestive tract (ICD-10) History of hysterectomy ?Z90.710 - Acquired absence of both cervix and uterus (ICD-10) Family History (Updated 09/19/25 @ 12:09 by Andree Maddox RN) Grandfather Family history of cancer Father Family history of CHF (congestive heart failure) Family history of hypertension Mother Family history of diabetes mellitus Social History (Updated 09/19/25 @ 12:10 by Andree Maddox RN) Within the past year, how often did you have a drink containing alcohol: never Score interpretation: A score less than 3 is consistent with normal alcohol consumption. Do you use any of these nicotine containing products: vaping products Non-prescribed substance use: denies use Highest level of school completed/degree received: Associate degree: occupational, technical, vocational program Little interest or pleasure in doing things: not at all Feeling down, depressed, or hopeless: not at all Exam Narrative Exam Narrative: CONSTITUTIONAL: Well-appearing, no acute distress, mentating appropriately, answering questions and following commands appropriately SKIN: Was warm and dry. EYES: Sclerae white. EARS, NOSE, THROAT: Moist oral mucosa. No JVD. RESPIRATORY: Clear to auscultation bilaterally, no wheezes, crackles, or stridor, no use of accessory muscles CARDIOVASCULAR: Bradycardic rate and regular rhythm. There is no S3, S4, murmur, rub. GASTROINTESTINAL: Abdomen is soft, nontender, nondistended. MUSCULOSKELETAL: No peripheral edema. NEUROLOGIC: Patient is awake and alert. Facies were symmetrical. Constitutional Vital Signs, click to edit/add: Last Vital Signs Temp 97.9 F 10/02/25 09:01 Pulse 59 L 10/02/25 14:31 Resp 20 10/02/25 14:31 BP 127/54 10/02/25 14:31 Pulse Ox 100 10/02/25 11:30 O2 Del Method Room Air 10/02/25 09:11 Course Vital Signs Vital signs: Vital Signs Temperature 97.9 F 10/02/25 09:01 Pulse Rate 45 L 10/02/25 09:01 Respiratory Rate 14 10/02/25 09:01 Blood Pressure 117/35 L 10/02/25 09:01 Pulse Oximetry 98 10/02/25 09:01 Oxygen Delivery Method Room Air 10/02/25 09:01 Temperature 97.9 F 10/02/25 09:01 Pulse Rate 59 L 10/02/25 14:31 Respiratory Rate 20 10/02/25 14:31 Blood Pressure 127/54 10/02/25 14:31 Pulse Oximetry 100 10/02/25 11:30 Oxygen Delivery Method Room Air 10/02/25 09:11 Medical Decision Making [facility] Narrative Medical decision making narrative: Patient is a 65-year-old female presenting to the emergency department from stress test for concerns of hypotension and bradycardia. Her vital signs on arrival are significant for hypotension with a blood pressure of 92/42. Her pulse rate is 96 bpm. She is complaining of mild chest pain, dizziness, and feeling generally unwell. However, on exam, she is awake, mentating appropriately, and appears to be in no acute distress. On review of external documentation, patient was admitted to the hospital approximately 2 weeks ago for symptomatic bradycardia. At that time, it was thought to be secondary to propranolol use. However, the patient is been off propranolol since her ED discharge. She continues to be symptomatic and bradycardic despite being off of all beta-blockers and calcium channel blockers. Differential diagnose includes AV block, sick sinus syndrome, ACS, dehydration, or other electrolyte/metabolic derangement. IV was established and laboratory studies were obtained. She was given 1 L bolus normal saline. 12 Lead EKG: Sinus bradycardia at a rate of 44. Normal axis. No ST segment elevations. QRS, NC, and QTc interval within normal limits. Final impression: Sinus bradycardia without evidence of acute myocardial ischemia or AV block. Laboratory studies were significant for mild CINDY with a creatinine of 1.24, up from her baseline of 0.77. No other electrolyte or metabolic derangement. Troponin and BNP not elevated. Chest x-ray independently reviewed/interpreted by myself demonstrated no acute cardiopulmonary process. CT of the chest/abdomen/pelvis demonstrate no evidence of acute aortic dissection. 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 Rodgers, who recommended transfer to [facility] for pacemaker placement I discussed the patient with hospitalist Juan Manuel BOWEN , who accepted the transfer. FINAL IMPRESSION: #Acute symptomatic bradycardia requiring placement replacement DISPOSITION: Transferred to [facility] CONDITION: Fair Medical Records Medical records reviewed: Yes I reviewed the patient's medical records Lab Data Lab results reviewed: Yes I reviewed the patient's lab results Labs: Lab Results 10/02/25 Range/Units 09:08 WBC 11.7 H (4.0-11.0) 10^3/uL RBC 5.10 (4.20-5.40) 10^6/uL Hgb 13.8 (12.0-16.0) g/dL Hct 43.6 (36.0-48.0) % MCV 85.5 (81.0-99.0) fL MCH 27.1 (26.7-34.0) pg MCHC 31.7 (29.9-35.2) g/dL RDW 14.3 (11.0-15.0) % Plt Count 386 (150-450) 10^3/uL MPV 8.6 L (9.5-13.5) fL Neut % (Auto) 63.8 (43.0-75.0) % Lymph % (Auto) 25.4 (20.5-60.0) % [place] % (Auto) 9.4 (1.7-12.0) % Eos % (Auto) 0.0 L (0.9-7.0) % Baso % (Auto) 0.7 (0.2-2.0) % Neut # (Auto) 7.4 H (1.4-6.5) 10^3/uL Lymph # (Auto) 3.0 (1.2-3.8) 10^3/uL [place] # (Auto) 1.1 H (0.3-0.8) 10^3/uL Eos # (Auto) 0.0 (0.0-0.7) 10^3/uL Baso # (Auto) 0.1 (0.0-0.1) 10^3/uL Abs Immat Gran (auto) 0.08 H (0.00-0.03) 10^3/uL Imm/Tot Granulo (auto) 0.7 H (0.0-0.5) % Sodium 137 (136-145) mmol/L Potassium 4.9 (3.5-5.1) mmol/L Chloride 104 (98-107) mmol/L Carbon Dioxide 22.8 (21.0-32.0) mmol/L Anion Gap 15.1 BUN 37.0 H (7.0-18.0) mg/dL Creatinine 1.24 H (0.55-1.02) mg/dL Est GFR ( Amer) 52 L (>=60 mL/min/1.73m^2) Est GFR (Non-Af Amer) 43 L (>=60 mL/min/1.73m^2) BUN/Creatinine Ratio 29.8 Glucose 105 (74-106) mg/dL Calcium 9.3 (8.5-10.1) mg/dL Troponin I High Sens 5.9 (4.0-51.3) pg/mL NT-Pro-B Natriuret Pep 90.0 (<=900.0) pg/mL Imaging Data CT scan - abdomen: Attestation: I personally reviewed and interpreted this imaging study as follows: Radiologist's impression: ITS Impressions Chest X-Ray 10/02/25 09:26 IMPRESSION: SHALLOW INSPIRATION WITH BIBASILAR ATELECTASIS AND/OR SCARRING. NO OTHER ACUTE FINDINGS Impression dictated by: Sona Miles M.D. 10/02/2025 9:54 AM Dictation Location: [place] [address] Electronically authenticated by: [id number] Y Date: 10/02/2025 09:54 Abdomen/Pelvis CT 10/02/25 12:25 IMPRESSION: No acute cardiopulmonary pathology. No aneurysm dilatation, dissection, or occlusion. No acute intra-abdominal pathology. Additional chronic appearing findings are noted as above. Impression dictated by: Hemant Dozier M.D. 10/02/2025 1:19 PM Dictation Location: [email or web address] Electronically authenticated by: [id number] Y Date: 10/02/2025 13:[address] 10/02/25 12:25 IMPRESSION: No acute cardiopulmonary pathology. No aneurysm dilatation, dissection, or occlusion. No acute intra-abdominal pathology. Additional chronic appearing findings are noted as above. Impression dictated by: Hemant Dozier M.D. 10/02/2025 1:19 PM Dictation Location: [facility] Electronically authenticated by: [id number] Y Date: 10/02/2025 13:19 ECG Data Attestation: I personally reviewed and interpreted this ECG as follows: Discharge Plan Discharge Chief Complaint: Arrhythmia/Palpitations Clinical Impression: Bradycardia, sinus Patient Disposition: [facility] Time of Disposition Decision: 11:44 Discharge Location: [facility] Condition: Fair Mode of Transportation: EMS
--- NOTE | 2025-10-02 12:25 | CT_ITS ---
The [address] [address] Patient Name: NAZARIO MEDLEY MRN: [id number] date: 1960 Sex: F Assigned Patient Location: ER Current Patient Location: ER Accession/Order Number: [id number] Exam Date: 10/02/2025 12:45 Report Date: 10/02/2025 13:19 At the request of: JO ANN MALDONADO DO Procedure: CT abdomen pelvis w con CT chest w con, CT abdomen pelvis w con 10/02/2025 12:55 PM SIGN AND SYMPTOMS: ^chest pain, can't get IV access for angio \S.br\ CONTRAST: 100 mL of intravenous Omnipaque 300 TECHNIQUE: Multidetector CT axial slices of the chest, abdomen and pelvis were obtainedwith IV contrast. Multiplanar reformats were performed and viewed on a separate workstation and reviewed to further define anatomy and possible pathology. CT was performed with one or more of the following dose reduction techniques: Automated exposure control, adjustment of the mA and/or kV according to patient size, or use of iterative reconstruction technique. COMPARISON: 07/20/2022 and 11/06/2020. FINDINGS: Lower neck: There is a 1.2 cm calcified nodule within the right thyroid lobe. Vessels: Atherosclerotic changes are noted in the aortic arch and origins of the great vessels. There is no aneurysm dilatation, dissection, or occlusion. Mild atherosclerotic changes are noted in the coronary arteries. Mediastinum and Amparo: Within normal limits. Heart: Normal size. No pericardial effusion. Airways: Within normal limits Lungs: There is atelectasis in the lung bases. Pleura: Within normal limits. Chest Wall: Contrast is noted along the left upper extremity suggesting extravasation during contrast injection. Abdomen: Liver: Within normal limits. Bile Ducts: Normal caliber. Gallbladder: Previously removed Pancreas: within normal limits. Spleen: within normal limits. Adrenals: within normal limits. Kidneys: within normal limits. Pelvis: Reproductive Organs: No pelvic masses. Ureters: within normal limits. Bladder: within normal limits. Bowel: There is evidence of previous partial colectomy with surgical anastomosis along the sigmoid colon. There are uncomplicated colonic diverticula. There is no evidence of bowel obstruction. There is a normal appendix in the right lower quadrant. Mesenteric Lymph Nodes: No enlarged mesenteric lymph nodes. Peritoneum: No ascites or free air, no fluid collection. Vessels: No aneurysmal dilatation, dissection, or occlusion. Retroperitoneum: within normal limits. Abdominal Wall: within normal limits. Bones: Degenerative changes are noted in the thoracolumbar spine and sacroiliac joints. Degenerative changes are noted in the hips bilaterally. CT/CT chest w con IMPRESSION: No acute cardiopulmonary pathology. No aneurysm dilatation, dissection, or occlusion. No acute intra-abdominal pathology. Additional chronic appearing findings are noted as above. Impression dictated by: Hemant Dozier M.D. 10/02/2025 1:19 PM Dictation Location: [place] [address] Electronically authenticated by: [id number] Y Date: 10/02/2025 13:19
--- NOTE | 2025-10-02 12:25 | CT_ITS ---
The [address] [address] Patient Name: NAZARIO MEDLEY MRN: [id number] date: 1960 Sex: F Assigned Patient Location: ER Current Patient Location: ER Accession/Order Number: [id number] Exam Date: 10/02/2025 12:45 Report Date: 10/02/2025 13:19 At the request of: JO ANN MALDONADO DO Procedure: CT abdomen pelvis w con CT chest w con, CT abdomen pelvis w con 10/02/2025 12:55 PM SIGN AND SYMPTOMS: ^chest pain, can't get IV access for angio \S.br\ CONTRAST: 100 mL of intravenous Omnipaque 300 TECHNIQUE: Multidetector CT axial slices of the chest, abdomen and pelvis were obtainedwith IV contrast. Multiplanar reformats were performed and viewed on a separate workstation and reviewed to further define anatomy and possible pathology. CT was performed with one or more of the following dose reduction techniques: Automated exposure control, adjustment of the mA and/or kV according to patient size, or use of iterative reconstruction technique. COMPARISON: 07/20/2022 and 11/06/2020. FINDINGS: Lower neck: There is a 1.2 cm calcified nodule within the right thyroid lobe. Vessels: Atherosclerotic changes are noted in the aortic arch and origins of the great vessels. There is no aneurysm dilatation, dissection, or occlusion. Mild atherosclerotic changes are noted in the coronary arteries. Mediastinum and Amparo: Within normal limits. Heart: Normal size. No pericardial effusion. Airways: Within normal limits Lungs: There is atelectasis in the lung bases. Pleura: Within normal limits. Chest Wall: Contrast is noted along the left upper extremity suggesting extravasation during contrast injection. Abdomen: Liver: Within normal limits. Bile Ducts: Normal caliber. Gallbladder: Previously removed Pancreas: within normal limits. Spleen: within normal limits. Adrenals: within normal limits. Kidneys: within normal limits. Pelvis: Reproductive Organs: No pelvic masses. Ureters: within normal limits. Bladder: within normal limits. Bowel: There is evidence of previous partial colectomy with surgical anastomosis along the sigmoid colon. There are uncomplicated colonic diverticula. There is no evidence of bowel obstruction. There is a normal appendix in the right lower quadrant. Mesenteric Lymph Nodes: No enlarged mesenteric lymph nodes. Peritoneum: No ascites or free air, no fluid collection. Vessels: No aneurysmal dilatation, dissection, or occlusion. Retroperitoneum: within normal limits. Abdominal Wall: within normal limits. Bones: Degenerative changes are noted in the thoracolumbar spine and sacroiliac joints. Degenerative changes are noted in the hips bilaterally. CT/CT abdomen pelvis w con IMPRESSION: No acute cardiopulmonary pathology. No aneurysm dilatation, dissection, or occlusion. No acute intra-abdominal pathology. Additional chronic appearing findings are noted as above. Impression dictated by: Hemant Dozier M.D. 10/02/2025 1:19 PM Dictation Location: [place] [address] Electronically authenticated by: [id number] Y Date: 10/02/2025 13:19
[2025-10-03 08:09] LABS: Lithium (Eskalith(R)), Serum <0.1 mmol/L (0.5-1.2)
== END 2025-10-02 16:47 | disposition short-term general hospital (02) ==
PROVIDERS: Emergency Provider Student in an Organized Health Care Education/Training Program; PCP Family Medicine
DX: R00.1 Bradycardia, unspecified (principal); I27.20 Pulmonary hypertension, unspecified; R07.9 Chest pain, unspecified
CPT/HCPCS: 36415; 71045; 71260; 74177; 78451; 78452; 80048; 80178; 83880; 84484; 85025; 93005; 96360; 96361; 99285; A9500; Q9967